=== PATIENT | male | born 1945 | race Caucasian/White ===

== ENCOUNTER 2018-09-13 07:53 | Emergency (ER) | payer MEDICARE, MEDICAID ==
[~2018-09-13] VITALS: Ht 172.7 cm; Wt 108.0 kg
[~2018-09-13 07:53] MED LIST: ACHYD1T PO; ASCO500T20 PO; ATEN1TAB3 PO; ATOR20TA66 PO; ATOR40TA70 PO; CEPH500C PO; CETI10TA17 PO; CIPR500T78 PO; HYDR-3714; HYDR-3730 PO; LORA10TA7 PO; NF-FLON16G NSEACH; NIAC500T6 PO; NITR-65 PO; NITR100C3 PO; OMEP20TA2 PO; PHEN200T27 PO; RANI300T4 PO; RNT150T PO; ROSU20TA14 PO; SULF-222 PO; TERA2CAP13 PO; VENL75CA55 PO; VENL75TA6 PO
--- OUTSIDE RECORDS SUMMARY | 2018-09-13 07:59 | XMS REPORT | Continuity of Care Document ---
Author Author [facility] Organization [facility] Address Unknown Phone Unavailable Care Team Providers Care Concept Artist Name Role Phone SHARON EARL DO PCP Insurance Providers Payer Name Policy Number Subscriber Name Relationship [employer] Gold Choice [id number] Mihir Li 19 Self / Same As Patient Advance Directives Directive Response Recorded Date/Time Advance Directives No 02/27/15 8:15am Health Care Power of Offal Worker No 02/27/15 8:15am Organ Donor Yes 02/27/15 8:15am Resuscitation Status Full Code 02/27/15 8:15am Problems Medical Problems Problem Onset Date Status Urinary tract infection Unknown Active Suprapubic catheter dysfunction Unknown Active Medications Medication Dose Route Sig Days/Qty Instructions Order Date Discontinued Date Status Trimethoprim/Sulfamethoxazole 1 Ea PO DAILY 04/29/13 04/30/13 Discontinued Ranitidine Hcl 300 Mg PO BEDTIME 04/29/13 04/30/13 Discontinued Fluticasone Propionate 2 Puff NSEACH TWICE A DAY PRN PRN NASAL CONGESTION 04/29/13 Active Terazosin Hcl 4 Mg PO BEDTIME 04/29/13 Active Cetirizine HCl (Zyrtec) 10 Mg PO DAILY PRN 04/29/13 04/30/13 Discontinued Atenolol/Chlorthalidone (Tenoretic) 1 Tab PO DAILY 50-25MG TABLET 04/29 Active Omeprazole 20 Mg PO TWICE A DAY 04/29/13 Active Venlafaxine Hcl 75 Mg PO DAILY 04/29/13 04/30/13 Discontinued Venlafaxine Hcl 75 Mg PO DAILY 04/30/13 Active Ranitidine HCl 300 Mg PO BEDTIME 04/30/13 Active Nitrofurantoin Macrocrystals 100 Mg PO TWICE A DAY 30 Qty Clcr <60 mL/ minute: Contraindicated 05/05/13 06/18/13 Discontinued Atorvastatin 20 Mg PO DAILY 12/01/14 Active Acetaminophen/Hydrocodone Bitart 21 Qty 02/27/15 Active Nitrofurantoin Macrocrystals 1 Each PO TWICE A DAY 30 Qty 02/27/15 Active Phenazopyridine HCl 1 Each PO THREE TIMES A DAY PRN BLADDER DISCOMFORT 15 Qty 02/27/15 Active Social History Social History Problem Response Recorded Date/Time Alcohol Use Denies Use 02/27/2015 8:15am Recreational Drug Use No 02/27/2015 8:15am Recent Foreign Travel No 04/30/2013 1:00am Recent Infectious Disease Exposure No 04/30/2013 1:00am Hospitalization with Isolation Denies 02/27/2015 8:15am Smoking Status Never a Smoker 02/27/2015 8:15am Query Response Start Date Stop Date Smoking Status Never a Smoker Hospital Discharge Instructions No hospital discharge instructions. Plan of Care No plan of care. Functional Status No functional status results. Allergies, Adverse Reactions, Alerts Allergen Type Severity Reaction Status Last Updated Penicillins ([id number]) Allergy Unknown Active 05/05/13 Immunizations Name Given Type Date of Pneumonia Vaccine 06/23/12 Historical Date of Influenza Vaccine 07/20/14 Historical Tetanus Booster (TDap) Unknown Historical Vital Signs Acute Vital Signs Vital Response Date/Time Temperature (Fahrenheit) 95.9 degrees F (97.6 - 99.5) Temperature (Calculated Celsius) 35.48308 degrees C (36.4 - 37.5) Temperature Source Temporal Pulse Rate (adult) 102 bpm (60 - 90) Respiratory Rate 20 bpm (12 - 24) O2 Sat by Pulse Oximetry 96 % (88 - 100) Blood Pressure 141/101 mm Hg Pain Pain Intensity 6 Height (Feet) 5 feet Height (Inches) 8 inches Height (Calculated Centimeters) 172.328435 cm Weight (Pounds) 220 pounds Weight (Calculated Kilograms) 99.617563 kilograms Calculated BMI 33.45 Results Laboratory Results Test Name Result Units Flags Reference Collection Date/Time Result Date/ Time Comments Urine Color YELLOW 02/27/2015 8:45am 02/27/2015 9:36am Urine Clarity MUCOUS 02/27/2015 8:45am 02/27/2015 9:36am Urine pH 7 5-9 02/27/2015 8:45am 02/27/2015 9:36am Urine Specific [place] 1.010 * 1.016-1.022 02/27/2015 8:45am 2014 9:36am Urine Protein 3+ * NEGATIVE 02/27/2015 8:45am 02/27/2015 9:36am Urine Glucose (UA) NEGATIVE NEGATIVE 02/27/2015 8:45am 02/27/2015 9: 36am Urine RBC (Auto) 5+ * NEGATIVE 02/27/2015 8:45am 02/27/2015 9:36am Urine Ketones 1+ * NEGATIVE 02/27/2015 8:45am 02/27/2015 9:36am Urine Nitrite POSITIVE * NEGATIVE 02/27/2015 8:45am 02/27/2015 9:36am Urine Bilirubin 2+ * NEGATIVE 02/27/2015 8:45am 02/27/2015 9:36am icto =pos Urine Urobilinogen 4 MG/DL * NORMAL 02/27/2015 8:45am 02/27/2015 9:36am Urine Leukocyte Esterase 3+ * NEGATIVE 02/27/2015 8:45am 02/27/2015 9: 36am Urine RBC 5-10 /HPF * 02/27/2015 8:45am 02/27/2015 9:36am Urine WBC TNTC /HPF * 02/27/2015 8:45am 02/27/2015 9:36am Urine Bacteria TRACE /HPF 02/27/2015 8:45am 02/27/2015 9:36am Urine Squamous Epithelial Cells NONE /HPF 02/27/2015 8:45am 2014 9:36am Urine Crystals NONE /LPF 02/27/2015 8:45am 02/27/2015 9:36am Urine Casts NONE /LPF 02/27/2015 8:45am 02/27/2015 9:36am Urine Mucus NEGATIVE /LPF 02/27/2015 8:45am 02/27/2015 9:36am Urine Culture Indicated YES 02/27/2015 8:45am 02/27/2015 9:36am Procedures No known history of procedures. Encounters Encounter Location Date/Time Departed Emergency Room [facility] 02/27/15 8:11am Registered Clinic [facility] 02/21/15 2:52pm Recent Diagnosis
--- OUTSIDE RECORDS SUMMARY | 2018-09-13 08:00 | XMS REPORT | Continuity of Care Document ---
Author Author [facility] Organization [facility] Address Unknown Phone Unavailable Allergies Active Description Code Type Severity Reaction Onset Reported/Identified Relationship to Patient Clinical Status Yes Penicillins [id number] Drug Allergy Unknown N/A 05/05/2013 Medications There is no data. Problems Date Dx Coded Attending Type Code Diagnosis Diagnosed By 05/05/2013 SHARON EARL DO Ot 041.85 BACTERIAL INFEC DUE TO OTH GRAM-NEG ORGA 05/05/2013 SHARON EARL DO Ot 276.8 HYPOPOTASSEMIA 05/05/2013 SHARON EARL DO Ot 401.9 HYPERTENSION NOS 05/05/2013 SAHRON EARL DO Ot 599.0 URIN TRACT INFECTION NOS 05/05/2013 SHARON EARL DO Ot 600.91 HYPERPLASIA OF PROSTATE, UNSPEC, W URINA 05/05/2013 SHARON EARL DO Ot 780.97 ALTERED MENTAL STATUS 05/05/2013 SHARON EARL DO Ot 788.20 RETENTION OF URINE NOS 05/05/2013 SHARON EARL DO Ot 788.43 NOCTURIA 05/05/2013 SHARON EARL DO Ot 788.62 SLOWING OF URINARY STREAM 05/05/2013 SHARON EARL DO Ot 788.63 URGENCY OF URINATION 06/23/2013 FABIANA CUELLAR MD Ot 596.54 NEUROGENIC BLADDER, NOT OTHERWISE SPECIF 06/23/2013 FABIANA CUELLAR MD Ot 788.20 RETENTION OF URINE NOS 12/01/2014 FABIANA CUELLAR MD Ot 596.54 12/01/2014 FABIANA CUELLAR MD Ot 788.20 12/01/2014 FABIANA CUELLAR MD Ot V72.63 12/01/2014 FABIANA CUELLAR MD Ot V74.8 12/01/2014 CAT MCGOWAN DO Ot 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 12/01/2014 CAT MCGOWAN DO Ot 401.9 HYPERTENSION NOS 12/01/2014 CAT MCGOWAN DO Ot V58.69 OTH MED,LT,CURRENT USE 02/27/2015 NICOLE SCOTT DO Ot 599.0 URIN TRACT INFECTION NOS 02/27/2015 NICOLE SCOTT DO Ot 789.09 ABDOMINAL PAIN, OTHER SPECIFIED SITE 02/27/2015 NICOLE SCOTT DO Ot 996.76 OTH COMP DUE TO GENITOURINARY DEVICE,IMP 02/27/2015 NICOLE SCOTT DO Ot N39.0 URINARY TRACT INFECTION, SITE NOT SPECIF 04/03/2015 TONYALENDER DO, SHARON Whitman Ot 805.2 04/03/2015 GELLENDER DO, SHARON Whitman Ot E000.8 04/03/2015 GELLENDER DO, SHARON Whitman Ot E888.9 07/11/2015 POLO SALAS, FABIANA Whitman Ot 596.54 07/11/2015 POLO SALAS, FABIANA A Ot 788.20 07/11/2015 POLO SALAS, FABIANA A Ot V72.63 07/11/2015 POLO SALAS, FABIANA Whitman Ot V74.8 07/11/2015 GELLENDER DO, SHARON Whitman Ot 805.2 07/11/2015 GELLENDER DO, SHARON Whitman Ot E000.8 07/11/2015 GELLENDER DO, SHARON Whitman Ot E888.9 07/11/2015 GELLENDER DO, SHARON Whitman Ot 805.2 07/11/2015 GELLENDER DO, SHARON Whitman Ot E000.8 07/11/2015 GELLENDER DO, SHARON Whitman Ot E888.9 02/07/2016 CORRINE MOSQUEDA MD, Ot 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 02/07/2016 CORRINE MOSQUEDA MD Ot Z01.810 ENCOUNTER FOR PREPROCEDURAL CARDIOVASCUL 02/07/2016 CORRINE MOSQUEDA MD, Ot Z11.2 ENCOUNTER FOR SCREENING FOR OTHER BACTER 02/08/2016 CORRINE MOSQUEDA MD, Ot 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 02/08/2016 CORRINE MOSQUEDA MD Ot Z01.810 ENCOUNTER FOR PREPROCEDURAL CARDIOVASCUL 02/08/2016 CORRINE MOSQUEDA MD Ot Z11.2 ENCOUNTER FOR SCREENING FOR OTHER BACTER 02/08/2016 CORRINE MOSQUEDA MD Ot 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 AN 02/09/2016 CORRINE MOSQUEDA MD Ot 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 AN 03/27/2016 FABIANA CUELLAR MD Ot 596.54 NEUROGENIC BLADDER, NOT OTHERWISE SPECIF 03/27/2016 FABIANA CUELLAR MD Ot 788.20 RETENTION OF URINE NOS 03/27/2016 FABIANA CUELLAR MD Ot V72.63 PRE-PROCEDURAL LABORATORY EXAMINATION 03/27/2016 FABIANA CUELLAR MD Ot V74.8 SCREEN-BACTERIAL DIS NEC 03/27/2016 SHARON EARL DO Ot 805.2 FX DORSAL VERTEBRA-CLOSE 03/27/2016 SHARON EARL DO Ot E000.8 OTHER EXTERNAL CAUSE STATUS 03/27/2016 SHARON EARL DO Ot E888.9 FALL NOS 03/27/2016 SHARON EARL DO Ot S22.009A UNSP FRACTURE OF UNSP THORACIC VERTEBRA, 03/27/2016 SHARON EARL DO Ot W19.XXXA UNSPECIFIED FALL, INITIAL ENCOUNTER 03/27/2016 SHARON EARL DO Ot Y99.8 OTHER EXTERNAL CAUSE STATUS Procedures There is no data. Results There is no data. Encounters ACCT No. Visit Date/Time Discharge Status Pt. Type Provider Facility Loc./Unit Complaint [id number] 02/08/2016 09:57:00 02/08/2016 18:10:00 DIS Outpatient CORRINE MOSQUEDA MD [facility] [id number] 02/07/2016 09:25:00 02/07/2016 11:03:00 DIS Outpatient CORRINE MOSQUEDA MD [facility] PREOP [id number] 02/27/2015 08:11:00 02/27/2015 09:44:00 DIS Emergency NICOLE SCOTT DO [facility] ER [id number] 02/21/2015 14:52:00 02/21/2015 23:59:59 CLS Outpatient SHARON EARL DO [facility] RAD [id number] 12/01/2014 07:01:00 12/01/2014 12:20:00 DIS Outpatient CAT MCGOWAN DO [facility] [id number] 06/23/2013 06:35:00 06/23/2013 11:40:00 DIS Outpatient FABIANA CUELLAR MD [facility] [id number] 06/18/2013 10:05:00 06/18/2013 23:59:59 CLS Outpatient FABIANA CUELLAR MD [facility] PREOP [id number] 04/29/2013 23:50:00 05/05/2013 18:00:00 DIS Inpatient SHARON EARL DO [facility] [id number] 09/08/2018 13:00:00 09/08/2018 23:59:59 [facility] 02/27/2015 08:13:09 ACT Document Registration
--- NOTE | 2018-09-13 08:17 | ED GU-Male ---
General Chief Complaint: Catheter/Drain/Tube Problems Stated Complaint: CATHETER FELL OUT Nursing Triage Note: pt presents to with complaints of his suprapubic cath coming out around 0300 this am. pt denies any other complaints. pt reports he just needs a new cath placed. Source: patient Exam Limitations: no limitations History of Present Illness Date Seen by Provider: Sep 13, 2018 Time Seen by Provider: 08:02 Initial Comments This 73-year-old gentleman presents to the emergency room with problems maintaining his suprapubic catheter. He has trouble with the bulb rupturing, deflating, or becoming dislodged. This is a recurrent problem. He presents to the ER because it is a weekend and he cannot present to his doctor's office. He has a catheter in a sealed packaging that he would like us to use and replace. He denies any pain or other problems. Allergies and Home Medications Allergies Coded Allergies: Penicillins (Verified Allergy, Unknown, 05/05/13) Reacted as a child per uncoded allergy Home Medications Atorvastatin Calcium 40 Mg Tablet, 20 MG PO HS, (Reported) take 1/2 of 40 mg tab Chlorthalidone/Atenolol 1 Each Tablet, 1 TAB PO DAILY, (Reported) 50-25MG TABLET Fluticasone Propionate 50 Mcg/16 G [place], 2 PUFF NSEACH BID PRN, (Reported) PRN NASAL CONGESTION Hydrocodone/Acetaminophen 1 Each Tablet, 1-2 EACH PO Q6H Prescribed by: CORRINE MOSQUEDA on 02/08/16 1549 Omeprazole 20 Mg Tablet.dr, 20 MG PO DAILY, (Reported) Ranitidine Hcl 150 Mg Tablet, 300 MG PO HS, (Reported) TAKES 2 (150MG) TABLETS AT BEDTIME Venlafaxine Hcl 75 Mg Cap.sr.24h, 75 MG PO DAILY, (Reported) Patient Home Medication List Home Medication List Reviewed: Yes Review of Systems Review of Systems Constitutional: no symptoms reported Gastrointestinal: no symptoms reported Genitourinary: see HPI Skin: no symptoms reported Past Pzqttnz-Bmscrf-Iyvrpq Hx Patient Social History Alcohol Use: Denies Use Recreational Drug Use: No Smoking Status: Never a Smoker Recent Foreign Travel: No Contact w/Someone Who Travel: No Recent Infectious Disease Expo: No Physical Abuse: No Sexual Abuse: No Mistreated: No Fear: No Immunizations Up To Date Tetanus Booster (TDap): Unknown Date of Pneumonia Vaccine: Jun 23, 2012 Date of Influenza Vaccine: Jul 20, 2014 Seasonal Allergies Seasonal Allergies: Yes Past Medical History Surgeries: Yes (lesion from neck, suprapubic cath, foot) Bladder Surgery (suprapubic catheter) Respiratory: No Cardiac: Yes High Cholesterol, Hypertension Neurological: No Reproductive Disorders: No Genitourinary: Yes (suprapubic catheter) Gastrointestinal: No Gastroesophageal Reflux Musculoskeletal: No Endocrine: No Double Vision Hearing Impairment: Bilateral Hearing Aide Cancer: Yes Skin Psychosocial: Yes Anxiety, Depression Integumentary: Yes (skin ca) Blood Disorders: No Adverse Reaction/Blood Tranf: No Family Medical History No Pertinent Family Hx Physical Exam Vital Signs Vital Signs - First Documented 09/13/18 08:10 Temp 99.6 Pulse 92 Resp 18 B/P (MAP) 131/76 (94) Pulse Ox 98 Capillary Refill : Less Than 3 Seconds Height, Weight, BMI Height: 5'8.00" Weight: 238lbs. 4.0oz. 107.646640dd; 34.7 BMI Method:Stated General Appearance: WD/WN, no apparent distress HEENT: normal ENT inspection Cardiovascular: regular rate, rhythm, no murmur Gastrointestinal: non tender, soft Neurologic/Psychiatric: gourmet coffee attendant II-XII nml as tested, alert, normal mood/affect, oriented x 3 Progress/Results/Core Measures Suspected Sepsis Recent Fever Within 48 Hours: No Infection Criteria Present: None New/Unexplained Altered Menta: No Sepsis Screen: No Definite Risk SIRS Temperature:99.6 Pulse: 92 Respiratory Rate: 18 Blood Pressure 131 /76 Mean: 94 Results/Orders Vital Signs/I&O 09/13/18 08:10 Temp 99.6 Pulse 92 Resp 18 B/P (MAP) 131/76 (94) Pulse Ox 98 Capillary Refill : Less Than 3 Seconds Blood Pressure Mean: 94 Progress Note : Progress Note Suprapubic catheter was replaced by nursing staff without any difficulty using patient's own supply of catheter. Departure Impression Primary Impression: Problem with Monk catheter Qualified Codes: T83.9XXA - Unspecified complication of genitourinary prosthetic device, implant and graft, initial encounter Disposition: 01 HOME, SELF-CARE Condition: Improved Departure-Patient Inst. Decision time for Depature: 08:16 Referrals: SHARON EARL DO (PCP/Family) Primary Care Physician Patient Instructions: Monk Catheter, Male Add. Discharge Instructions: Contact your doctor or return to care if you have any further problems or concerns. If you have recurrent problems with this type of catheter, consider changing brands or style catheter. All discharge instructions reviewed with patient and/or family. Voiced understanding. Copy Copies To 1: SHARON EARL JOSHUA T MD Sep 13, 2018 08:17
[2018-09-13 08:30] VITALS: BP 130/87
== END 2018-09-13 08:30 | disposition home or self-care (01) ==
LOC: EDUNIT# 07:53 → ER 07:55
DX: T83.028A Displacement of other urinary catheter, initial encounter (principal); E78.00 Pure hypercholesterolemia, unspecified; I10 Essential (primary) hypertension; K21.9 Gastro-esophageal reflux disease without esophagitis; F41.9 Anxiety disorder, unspecified; F32.9 Major depressive disorder, single episode, unspecified; Z85.828 Personal history of other malignant neoplasm of skin; Z88.0 Allergy status to penicillin; Z79.51 Long term (current) use of inhaled steroids; Z98.890 Other specified postprocedural states
CPT/HCPCS: 51702

== ENCOUNTER 2019-02-19 10:39 | Outpatient (CLI) | payer MEDICARE, MEDICAID ==
[~2019-02-19] VITALS: Ht 172.7 cm; Wt 115.7 kg
[2019-02-19] MEDS ORDERED: ATEN1TAB3 PO (13:47)
[2019-02-19] MEDS ORDERED: VENL75TA2 PO (13:47)
[2019-02-19] MEDS ORDERED: OMEP20TA7 PO (13:47)
[2019-02-19] MEDS ORDERED: POTA-51 PO (13:47)
[2019-02-19] MEDS ORDERED: RANI150T11 PO (13:47)
[2019-02-19] MEDS ORDERED: MAGN420T PO (13:47)
== END 2019-02-19 13:48 | disposition home or self-care (01) ==
LOC: PREOP 10:39
PROVIDERS: ATTEND Surgery
DX: Z01.818 Encounter for other preprocedural examination (principal)

== ENCOUNTER 2019-02-23 11:01 | Day surgery (SDC) | payer MEDICARE, MEDICAID ==
[~2019-02-23] VITALS: Ht 172.7 cm; Wt 115.7 kg
[~2019-02-23 11:01] MED LIST changes: +MAGN420T PO; +OMEP20TA7 PO; +POTA-51 PO; +RANI150T11 PO; +VENL75TA2 PO
--- OUTSIDE RECORDS SUMMARY | 2019-02-23 11:05 | XMS REPORT | Continuity of Care Document ---
Author Organization Unknown Address Unknown Allergies Active Description Code Type Severity Reaction Onset Reported/Identified Relationship to Patient Clinical Status Yes Penicillins [id number] Drug Allergy Unknown N/A 05/05/2013 Medications There is no data. Problems Date Dx Coded Attending Type Code Diagnosis Diagnosed By 05/05/2013 SHARON EARL DO Ot 041.85 BACTERIAL INFEC DUE TO OTH GRAM-NEG ORGA 05/05/2013 SHARON EARL DO Ot 276.8 HYPOPOTASSEMIA 05/05/2013 SHARON EARL DO Ot 401.9 HYPERTENSION NOS 05/05/2013 SHARON EARL DO Ot 599.0 URIN TRACT INFECTION [...] Whitman Ot E888.9 07/11/2015 POLO SALAS, FABIANA J Carlos Ot 596.54 07/11/2015 POLO SALAS, FABIANA A Ot 788.20 07/11/2015 POLO SALAS, FABIANA A Ot V72.63 07/11/2015 POLO SALAS, FABIANA A Ot V74.8 07/11/2015 GELLENDER DO, SHARON Whitman [...] ENCOUNTER FOR PREPROCEDURAL CARDIOVASCUL 02/07/2016 CORRINE MOSQUEDA MD Ot Z11.2 ENCOUNTER FOR SCREENING FOR OTHER BACTER 02/08/2016 CORRINE MOSQUEDA MD, Ot 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 02/08/2016 CORRINE MOSQUEDA MD Ot Z01.810 ENCOUNTER FOR PREPROCEDURAL CARDIOVASCUL 02/08/2016 CORRINE MOSQUEDA MD, Ot Z11.2 ENCOUNTER FOR SCREENING FOR OTHER BACTER 02/08/2016 CORRINE MOSQUEDA MD, Ot 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 AN 02/09/2016 CORRINE MOSQUEDA MD, Ot 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 AN 03/27/2016 FABIANA CUELLAR MD Ot 596.54 NEUROGENIC BLADDER, NOT OTHERWISE SPECIF 03/27/2016 FABIANA CUELLAR MD Ot 788.20 RETENTION OF URINE NOS 03/27/2016 FABIANA CUELLAR MD, Ot V72.63 PRE-PROCEDURAL LABORATORY EXAMINATION 03/27/2016 FABIANA CUELLAR MD, Ot V74.8 SCREEN-BACTERIAL DIS NEC 03/27/2016 MADY SHARON MINA Ot 805.2 FX DORSAL VERTEBRA-CLOSE 03/27/2016 MADY MINASHARON Ot E000.8 OTHER EXTERNAL CAUSE STATUS 03/27/2016 MADY MINASHARON Ot E888.9 FALL NOS 03/27/2016 MADY MINASHARON Ot S22.009A UNSP FRACTURE OF UNSP THORACIC VERTEBRA, 03/27/2016 MADY MINASHARON Ot W19.XXXA UNSPECIFIED FALL, INITIAL ENCOUNTER 03/27/2016 MADY MINASHARON Ot Y99.8 OTHER EXTERNAL CAUSE STATUS 09/13/2018 IVETTE SALAS, ULISES Perales Ot E78.00 PURE HYPERCHOLESTEROLEMIA, UNSPECIFIED 09/13/2018 ULISES STEELE MD Ot F32.9 MAJOR DEPRESSIVE DISORDER, SINGLE EPISOD 09/13/2018 ULISES STEELE MD, Ot F41.9 ANXIETY DISORDER, UNSPECIFIED 09/13/2018 ULISES STEELE MD Ot I10 ESSENTIAL (PRIMARY) HYPERTENSION 09/13/2018 ULISES STEELE MD Ot K21.9 GASTRO-ESOPHAGEAL REFLUX DISEASE WITHOUT 09/13/2018 ULISES STEELE MD Ot T83.028A DISPLACEMENT OF OTHER URINARY CATHETER, 09/13/2018 ULISES STEELE MD, Ot Z79.51 TELEMETRY RN (CURRENT) USE OF INHALED STERO 09/13/2018 ULISES STEELE MD Ot Z85.828 PERSONAL HISTORY OF OTHER MALIGNANT NEOP 09/13/2018 ULISES STEELE MD, Ot Z88.0 ALLERGY STATUS TO PENICILLIN 09/13/2018 ULISES STEELE MD Ot Z98.890 OTHER SPECIFIED POSTPROCEDURAL STATES 09/13/2018 FABIANA CUELLAR MD Ot 596.54 NEUROGENIC BLADDER, NOT OTHERWISE SPECIF 09/13/2018 FABIANA CUELLAR MD Ot 788.20 RETENTION OF URINE NOS 09/13/2018 FABIANA CUELLAR MD Ot V72.63 PRE-PROCEDURAL LABORATORY EXAMINATION 09/13/2018 FABIANA CUELLAR MD Ot V74.8 SCREEN-BACTERIAL DIS NEC 09/13/2018 MADY MINA, SHARON Whitman Ot 805.2 FX DORSAL VERTEBRA-CLOSE 09/13/2018 MADY MINASHARON Ot E000.8 OTHER EXTERNAL CAUSE STATUS 09/13/2018 MADY MINA, SHARON Whitman Ot E888.9 FALL NOS 09/13/2018 SHARON EARL DO Ot S22.009A UNSP FRACTURE OF UNSP THORACIC VERTEBRA, 09/13/2018 MADY MINA SHARON Whitman Ot W19.XXXA UNSPECIFIED FALL, INITIAL ENCOUNTER 09/13/2018 MADY MINA SHARON Whitman Ot Y99.8 OTHER EXTERNAL CAUSE STATUS 09/15/2018 ULISES STEELE MD Ot E78.00 PURE HYPERCHOLESTEROLEMIA, UNSPECIFIED 09/15/2018 ULISES STEELE MD Ot F32.9 MAJOR DEPRESSIVE DISORDER, SINGLE EPISOD 09/15/2018 ULISES STEELE MD, Ot F41.9 ANXIETY DISORDER, UNSPECIFIED 09/15/2018 ULISES STEELE MD Ot I10 ESSENTIAL (PRIMARY) HYPERTENSION 09/15/2018 ULISES STEELE MD, Ot K21.9 GASTRO-ESOPHAGEAL REFLUX DISEASE WITHOUT 09/15/2018 ULISES STEELE MD Ot T83.028A DISPLACEMENT OF OTHER URINARY CATHETER, 09/15/2018 ULISES STEELE MD Ot Z79.51 NURSING HOME (CURRENT) USE OF INHALED STERO 09/15/2018 ULISES STEELE MD Ot Z85.828 PERSONAL HISTORY OF OTHER MALIGNANT NEOP 09/15/2018 ULISES STEELE MD, Ot Z88.0 ALLERGY STATUS TO PENICILLIN 09/15/2018 ULISES STEELE MD Ot Z98.890 OTHER SPECIFIED POSTPROCEDURAL STATES Procedures There is no data. Results There is no data. Encounters ACCT No. Visit Date/Time Discharge Status Pt. Type Provider Facility Loc./Unit Complaint [id number] 09/13/2018 07:55:00 09/13/2018 08:30:00 DIS Emergency ULISES STEELE MD [facility] ER CATHETER FELL OUT [id number] 02/08/2016 09:57:00 02/08/2016 18:10:00 DIS Outpatient CORRINE MOSQUEDA MD [facility] SQUAMOUS CELL CANCER [id number] 02/07/2016 09:25:00 02/07/2016 11:03:00 DIS Outpatient CORRINE MOSQUEDA MD [facility] PREOP SQUAMOUS CELL CANCER [id number] 02/27/2015 08:11:00 02/27/2015 09:44:00 DIS Emergency NICOLE SCOTT DO [facility] ER LOWER GROIN PAIN/UTI SYMPTOMS [id number] 02/21/2015 14:52:00 02/21/2015 23:59:59 CLS Outpatient SHARON EARL DO [facility] RAD FELL HURT LOWER BACK, NOT GETTING BETTER [id number] 12/01/2014 07:01:00 12/01/2014 12:20:00 DIS Outpatient CAT MCGOWAN DO [facility] SDC LESION ON RIGHT SIDE OF NECK [id number] 06/23/2013 06:35:00 06/23/2013 11:40:00 DIS Outpatient FABIANA CUELLAR MD [facility] SDC NEUROGENIC BLADDER [id number] 06/18/2013 10:05:00 06/18/2013 23:59:59 CLS Outpatient FABIANA CUELLAR MD [facility] PREOP NEUROGENIC BLADDER [id number] 04/29/2013 23:50:00 05/05/2013 18:00:00 DIS Inpatient SHARON EARL DO [facility] 4TH URINARY TRACT INFECTION,MENTAL STATUS CHANGE [id number] 09/08/2018 13:00:00 09/08/2018 23:59:59 CLS Outpatient PAGE TIRADO [id number] 02/27/2015 08:13:09 ACT Document Registration
--- OUTSIDE RECORDS SUMMARY | 2019-02-23 11:05 | XMS REPORT ---
Author Author MICHELE DEL ROSARIO Organization [facility] Address [address] [place] [address] Care Team Providers Care Trim Carpenter Name Role Phone MICHELE DEL ROSARIO Unavailable PROBLEMS Unknown Problems ALLERGIES Substance Reaction Event Type Date Status Penicillin V Potassium Unknown Drug Allergy Aug, Active ENCOUNTERS Encounter Location Date Diagnosis [facility] [address] [facility] [id number] [id number] Aug, Dental examination Z01.20 ; Oral health maintenance status requiring routine preventive dental care K08.9 and Caries K02.9 IMMUNIZATIONS No Known Immunizations SOCIAL HISTORY Never Assessed REASON FOR VISIT EST CARE PLAN OF CARE Activity Details Follow Up First Available Reason:Restorative VITAL SIGNS Blood pressure systolic 130 mmHg 2018-09-08 Blood pressure diastolic 95 mmHg 2018-09-08 MEDICATIONS Unknown Medications RESULTS No Results PROCEDURES Procedure Date Ordered Result Body Site COMP ORAL EVALUATION - NEW/EST PT Sep 08, 2018 INTRAORL-PERIAPICAL 1 FILM 79370 Sep 08, 2018 PROPHYLAXIS - ADULT Sep 08, 2018 PANORAMIC FILM SEE ALSO CODE 02390 Sep 08, 2018 TOPICAL FLUORIDE VARNISH Sep 08, 2018 INTRAORL-PERIAPICAL EA ADD FILM Sep 08, 2018 INTRAORL-PERIAPICAL EA ADD FILM Sep 08, 2018 BITEWINGS - FOUR FILMS Sep 08, 2018 INTRAORL-PERIAPICAL EA ADD FILM Sep 08, 2018 INSTRUCTIONS MEDICATIONS ADMINISTERED No Known Medications MEDICAL (GENERAL) HISTORY Type Description Date Medical History High Blood Pressure Medical History Pt reports he takes several medications but does not know the names for them, pt states he Dr[facility] Surgical History Skin Cancer removed 2013 Surgical History Pubic port placed for bladder issues 2013
[2019-02-23] MEDS ORDERED: LACTATED RINGERS 1,000 ML IV STA (11:16)
[2019-02-23] MEDS ORDERED: HURRICAINE EXT TUBE (BENZOCAINE) XX PRN (11:30)
[2019-02-23] MEDS ORDERED: LACTATED RINGERS 1,000 ML IV ONE ×2 (11:32→15:06)
[2019-02-23 11:58] VITALS: BP 139/75
[2019-02-23] MEDS ORDERED: PROPOFOL INJECTION 50 ML IV ONE (13:36)
[2019-02-23] MEDS ORDERED: MIDAZOLAM 2 MG/2 ML (VERSED) VIAL ONE (13:36)
--- NOTE | 2019-02-23 13:46 | Progress Note-Pre Operative ---
Pre-Operative Progress Note H&P Reviewed The H&P was reviewed, patient examined and no changes noted. Date Seen by Provider: February 23, 2019 Time Seen by Provider: 13:46 Date H&P Reviewed: February 23, 2019 Time H&P Reviewed: 13:46 Pre-Operative Diagnosis: gerd, hx polyps CAT MCGOWAN DO February 23, 2019 13:46
[2019-02-23] MEDS ORDERED: proPOfol 200 MG/20 ML (DIPRIVAN) VIAL IV ONE ×2 (14:39→14:57)
[2019-02-23 15:45] VITALS: BP 127/70
--- NOTE | 2019-02-23 15:56 | Discharge Inst-Simple/Standard ---
Discharge Inst-Standard Patient Instructions/Follow Up Plan of Care/Instructions/FU: 2 weeks Cash Activity as Tolerated: Yes Discharge Diet: Regular Diet CAT MCGOWAN DO February 23, 2019 15:56
[2019-02-23 16:05] VITALS: BP 135/75
--- NOTE | 2019-02-23 16:05 | Progress Note-Post Operative ---
Post-Operative Progess Note Surgeon (s)/Fisher Eel Spear (s) Surgeon CAT MCGOWAN DO Fisher Eel Spear: na Pre-Operative Diagnosis gerd, hx polyps Post-Operative Diagnosis diverticulsosis and colon polyps hiatal hernia Procedure & Operative Findings Date of Procedure 02/23/19 Procedure Performed/Findings egd c biopsies, colonoscopy with snare polypectomy x 1 adn hot bx polypectomy x 6 Anesthesia Type per move coordinator Estimated Blood Loss Estimated blood loss (mL): none Specimens/Packing Specimens Removed colon polyps, antrum ge junction. CAT MCGOWAN DO February 23, 2019 16:05
--- NOTE | 2019-02-23 16:12 | Anesthesia-General Post-Op ---
MAC Patient Condition Mental Status/LOC: Same as Preop Cardiovascular: Satisfactory Nausea/Vomiting: Absent Respiratory: Satisfactory Pain: Controlled Complications: Absent Post Op Complications Complications None Follow Up Care/Instructions Patient Instructions None needed. Anesthesiology Discharge Order Discharge Order Patient is doing well, no complaints, stable vital signs, no apparent adverse anesthesia problems. No complications reported per nursing. RANDALL OVALLE CRNA February 23, 2019 16:12
--- NOTE | 2019-02-23 22:52 | OPERATIVE REPORT ---
DATE OF SERVICE: 02/23/2019 PREOPERATIVE DIAGNOSES: Gastroesophageal reflux disease and history of polyps. POSTOPERATIVE DIAGNOSES: Diverticulosis, colon polyps, hiatal hernia. PROCEDURE: EGD with biopsies, colonoscopy with snare polypectomy x1 and hot biopsy polypectomy x6. SURGEON: Cat Castrejon DO ANESTHESIA: Per SUPERVISOR CIGAR MAKING HAND. ESTIMATED BLOOD LOSS: None. SPECIMENS: Colon polyps, antrum and GE junction. INDICATIONS: The patient is a 73-year-old male with history of colon polyps and GERD. He understands risks and benefits of procedures wishes to proceed with procedure. Consent was signed on the chart. DESCRIPTION OF PROCEDURE: The patient was taken to the endoscopy suite, placed in left lateral recumbent position. Timeout was performed. Scope was inserted into the mouth, down the esophagus, stomach and into the duodenum without difficulty. There were no polyps, masses or ulcerations in the duodenum. Scope was then slowly retracted back into the stomach where it was further insufflated. No polyps, masses or ulcerations. Biopsy of the antrum was obtained. Scope was retroflexed noting a hiatal hernia. No other pathology noted. Scope was returned to its normal position, slowly withdrawn to the distal esophagus. Some slight erythematous changes present. Biopsy of the GE junction was obtained. Scope was then slowly retracted back to completely remove, noting no other pathology. Digital rectal exam was performed. There were no palpable polyps, masses or ulcerations. The scope was inserted into the rectum and advanced all the way to the cecum with minimal difficulty. Prep was adequate with irrigation and suction. Scope was then slowly retracted back. There were no polyps, masses or ulcerations in the cecum. One small polyp in the ascending colon, which hot biopsy polypectomy was performed. Scope was then continuously retracted back. At the hepatic flexure, there were 2 colon polyps in the transverse colon, which hot biopsy polypectomies were performed. Scope was continuously retracted back at the splenic flexure, a larger polyp was present, which snare polypectomy was performed. Scope was continued to be slowly retracted back. Still in the transverse colon, another small polyp was present, which hot biopsy polypectomy was performed. Scope was continuously retracted back into the descending colon, which hot biopsy polypectomy was performed. Another descending colon polyp was present, which hot biopsy polypectomy was performed. Scope was then continued to be slowly retracted back through the sigmoid colon noting diverticulosis. Scope was then continued to be slowly retracted back to the rectum, where it was also retroflexed noting no other pathology. Scope was returned to its normal position and slowly withdrawn until completely removed. A total of 6 colon polyps, which hot biopsy polypectomy was performed and one snare polypectomy was performed. RECOMMENDATIONS: The patient to continue on current medications. The patient will need repeat colonoscopy in one year for reevaluation. Job ID: [id number] DocumentID: [id number] Dictated Date: 02/23/2019 16:03:56 Geography Teacher Date: 02/23/2019 22:52:29 Dictated By: CAT CASTREJON DO
== END 2019-02-23 16:20 | disposition home or self-care (01) ==
LOC: ENDO 11:01
PROVIDERS: ATTEND Surgery
DX: Z12.11 Encounter for screening for malignant neoplasm of colon (principal); D12.2 Benign neoplasm of ascending colon; D12.3 Benign neoplasm of transverse colon; D12.4 Benign neoplasm of descending colon; K63.5 Polyp of colon; K57.30 Diverticulosis of large intestine without perforation or abscess without bleeding; K21.9 Gastro-esophageal reflux disease without esophagitis; K44.9 Diaphragmatic hernia without obstruction or gangrene; I10 Essential (primary) hypertension; E78.5 Hyperlipidemia, unspecified; E66.9 Obesity, unspecified; Z68.38 Body mass index [BMI] 38.0-38.9, adult; Z93.50 Unspecified cystostomy status; Z79.899 Other long term (current) drug therapy; Z87.19 Personal history of other diseases of the digestive system
CPT/HCPCS: 88305

== ENCOUNTER 2019-03-14 15:38 | Emergency (ER) | payer MEDICARE, OTHER, MEDICAID | END 2019-03-14 16:18 | disposition home or self-care (01) | LOC: ER 15:38 ==

== ENCOUNTER 2019-05-16 07:45 | Emergency (ER) | payer MEDICARE, MEDICAID ==
[~2019-05-16] VITALS: Ht 172.7 cm; Wt 70.3 kg
--- OUTSIDE RECORDS SUMMARY | 2019-05-16 07:51 | XMS REPORT | Continuity of Care Document ---
Author Organization Unknown Address Unknown Phone Unavailable Allergies Active Description Code Type Severity Reaction Onset Reported/Identified Relationship to Patient Clinical Status Yes Penicillins [id number] Drug Allergy Unknown N/A 05/05/2013 Medications There [...] CARCINOMA OF SCALP AND SKIN O 12/01/2014 MCGOWAN DO, CAT D Ot 401.9 HYPERTENSION NOS 12/01/2014 MCGOWANCAT ZAPATA DO D Ot V58.69 OTH MED,LT,CURRENT USE 02/27/2015 NICOLE SCOTT DO Ot 599.0 URIN TRACT INFECTION NOS 02/27/2015 NICOLE SCOTT DO Ot 789.09 ABDOMINAL PAIN, OTHER SPECIFIED SITE 02/27/2015 NICOLE SCOTT DO Ot 996.76 OTH COMP DUE TO GENITOURINARY DEVICE,IMP 02/27/2015 NICOLE SCOTT DO Ot N39.0 URINARY TRACT INFECTION, SITE NOT SPECIF 04/03/2015 GELLENDER DO, SHARON Whitman Ot 805.2 04/03/2015 GELLENDER DO, SHARON Whitman Ot E000.8 04/03/2015 GELLENDER DO, SHARON Whitman Ot E888.9 07/11/2015 POLO SALAS, FABIANA A Ot 596.54 07/11/2015 POLO SALAS, FABIANA A Ot 788.20 07/11/2015 POLO SALAS, FABIANA A Ot V72.63 07/11/2015 POLO SALAS, FABIANA A Ot V74.8 07/11/2015 GELLENDER DO, SHARON A Ot 805.2 07/11/2015 GELLENDER DO, SHARON A Ot E000.8 07/11/2015 GELLENDER DO, SHARON A Ot E888.9 07/11/2015 GELLENDER DO, SHARON A Ot 805.2 07/11/2015 GELLENDER DO, SHARON A Ot E000.8 07/11/2015 GELLENDER DO, SHARON A Ot E888.9 02/07/2016 CORRINE MOSQUEDA MD Ot 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 [...] MD Ot V72.63 PRE-PROCEDURAL LABORATORY EXAMINATION 03/27/2016 AFBIANA CUELLAR MD, Ot V74.8 SCREEN-BACTERIAL DIS NEC 03/27/2016 ZANDRASHARON LARA DO Ot 805.2 FX DORSAL VERTEBRA-CLOSE 03/27/2016 MADY SHARON MINA Ot E000.8 OTHER EXTERNAL CAUSE STATUS 03/27/2016 MADY MNIASHARON Ot E888.9 FALL NOS 03/27/2016 MADY SHARON MINA Ot S22.009A UNSP FRACTURE OF UNSP THORACIC VERTEBRA, 03/27/2016 MADY SHARON MINA Ot W19.XXXA UNSPECIFIED FALL, INITIAL ENCOUNTER 03/27/2016 MADY MINA SHARON Whitman Ot Y99.8 OTHER EXTERNAL CAUSE STATUS 09/13/2018 IVETTE SALAS, ULISES Perales Ot E78.00 PURE HYPERCHOLESTEROLEMIA, UNSPECIFIED 09/13/2018 ULISES STEELE MD, Ot F32.9 MAJOR DEPRESSIVE DISORDER, SINGLE EPISOD 09/13/2018 ULISES STEELE MD, Ot F41.9 ANXIETY DISORDER, UNSPECIFIED 09/13/2018 ULISES STEELE MD Ot I10 ESSENTIAL (PRIMARY) HYPERTENSION 09/13/2018 ULISES STEELE MD Ot K21.9 GASTRO-ESOPHAGEAL REFLUX DISEASE WITHOUT 09/13/2018 ULISES STEELE MD Ot T83.028A DISPLACEMENT OF OTHER URINARY CATHETER, 09/13/2018 ULISES STEELE MD, Ot Z79.51 PRISON (CURRENT) USE OF INHALED STERO 09/13/2018 ULISES STEELE MD Ot Z85.828 PERSONAL HISTORY OF OTHER MALIGNANT NEOP 09/13/2018 ULISES STEELE MD, Ot Z88.0 ALLERGY STATUS TO PENICILLIN 09/13/2018 ULISES STEELE MD Ot Z98.890 OTHER SPECIFIED POSTPROCEDURAL STATES 09/13/2018 FABIANA CUELLAR MD Ot 596.54 NEUROGENIC BLADDER, NOT OTHERWISE SPECIF 09/13/2018 FABIANA CUELLAR MD Ot 788.20 RETENTION OF URINE NOS 09/13/2018 POLO SALAS, FABIANA Whitman Ot V72.63 PRE-PROCEDURAL LABORATORY EXAMINATION 09/13/2018 FABIANA CUELLAR MD Ot V74.8 SCREEN-BACTERIAL DIS NEC 09/13/2018 MADY MINA, SHARON Whitman Ot 805.2 FX DORSAL VERTEBRA-CLOSE 09/13/2018 MADY MINA, SHARON Whitman Ot E000.8 OTHER EXTERNAL CAUSE STATUS 09/13/2018 MADY MINA, SHARON Whitman Ot E888.9 FALL NOS 09/13/2018 SHARON EARL DO Ot S22.009A UNSP FRACTURE OF UNSP THORACIC VERTEBRA, 09/13/2018 MADY MINA SHARON Whitman Ot W19.XXXA UNSPECIFIED FALL, INITIAL ENCOUNTER 09/13/2018 MADY MINA, SHARON Whitman Ot Y99.8 OTHER EXTERNAL CAUSE STATUS 09/15/2018 ULISES STEELE MD Ot E78.00 PURE HYPERCHOLESTEROLEMIA, UNSPECIFIED 09/15/2018 ULISES STEELE MD Ot F32.9 MAJOR DEPRESSIVE DISORDER, SINGLE EPISOD 09/15/2018 ULISES STEELE MD Ot F41.9 ANXIETY DISORDER, UNSPECIFIED 09/15/2018 ULISES STEELE MD Ot I10 ESSENTIAL (PRIMARY) HYPERTENSION 09/15/2018 ULISES STEELE MD Ot K21.9 GASTRO-ESOPHAGEAL REFLUX DISEASE WITHOUT 09/15/2018 ULISES STEELE MD Ot T83.028A DISPLACEMENT OF OTHER URINARY CATHETER, 09/15/2018 ULISES STEELE MD Ot Z79.51 PRISON (CURRENT) USE OF INHALED STERO 09/15/2018 ULISES STEELE MD Ot Z85.828 PERSONAL HISTORY OF OTHER MALIGNANT NEOP 09/15/2018 ULISES STEELE MD Ot Z88.0 ALLERGY STATUS TO PENICILLIN 09/15/2018 IVETTE SALAS, ULISES Perales Ot Z98.890 OTHER SPECIFIED POSTPROCEDURAL STATES 02/19/2019 CAT MCGOWAN DO Ot Z01.818 ENCOUNTER FOR OTHER PREPROCEDURAL EXAMIN 02/23/2019 CAT MCGOWAN DO Ot D12.2 BENIGN NEOPLASM OF ASCENDING COLON 02/23/2019 CAT MCGOWAN DO Ot D12.3 BENIGN NEOPLASM OF TRANSVERSE COLON 02/23/2019 CAT MCGOWAN DO Ot D12.4 BENIGN NEOPLASM OF DESCENDING COLON 02/23/2019 CAT MCGOWAN DO Ot E66.9 OBESITY, UNSPECIFIED 02/23/2019 CAT MCGOWAN DO Ot E78.5 HYPERLIPIDEMIA, UNSPECIFIED 02/23/2019 CAT MCGOWAN DO Ot I10 ESSENTIAL (PRIMARY) HYPERTENSION 02/23/2019 CAT MCGOWAN DO Ot K21.9 GASTRO-ESOPHAGEAL REFLUX DISEASE WITHOUT 02/23/2019 CAT MCGOWAN DO Ot K44.9 DIAPHRAGMATIC HERNIA WITHOUT OBSTRUCTION 02/23/2019 CTA MCGOWAN DO Ot K57.30 DVRTCLOS OF LG INT W/O PERFORATION OR AB 02/23/2019 CAT MCGOWAN DO Ot K63.5 POLYP OF COLON 02/23/2019 CAT MCGOWAN DO Ot Z12.11 ENCOUNTER FOR SCREENING FOR MALIGNANT NE 02/23/2019 CAT MCGOWAN DO Ot Z68.38 BODY MASS INDEX (BMI) 38.0-38.9, ADULT 02/23/2019 CAT MCOGWAN DO Ot Z79.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 02/23/2019 CAT MCGOWAN DO Ot Z87.19 PERSONAL HISTORY OF OTHER DISEASES OF TH 02/23/2019 CAT MCGOWAN DO Ot Z93.50 UNSPECIFIED CYSTOSTOMY STATUS 03/04/2019 CAT MCGOWAN DO Ot D12.2 BENIGN NEOPLASM OF ASCENDING COLON 03/04/2019 CAT MCGOWAN DO Ot D12.3 BENIGN NEOPLASM OF TRANSVERSE COLON 03/04/2019 CAT MCGOWAN DO Ot D12.4 BENIGN NEOPLASM OF DESCENDING COLON 03/04/2019 CAT MCGOWAN DO Ot E66.9 OBESITY, UNSPECIFIED 03/04/2019 CAT MCGOWAN DO Ot E78.5 HYPERLIPIDEMIA, UNSPECIFIED 03/04/2019 CAT MCGOWAN DO Ot I10 ESSENTIAL (PRIMARY) HYPERTENSION 03/04/2019 CAT MCGOWAN DO Ot K21.9 GASTRO-ESOPHAGEAL REFLUX DISEASE WITHOUT 03/04/2019 CAT MCGOWAN DO Ot K44.9 DIAPHRAGMATIC HERNIA WITHOUT OBSTRUCTION 03/04/2019 CAT MCGOWAN DO Ot K57.30 DVRTCLOS OF LG INT W/O PERFORATION OR AB 03/04/2019 CAT MCGOWAN DO Ot K63.5 POLYP OF COLON 03/04/2019 CAT MCGOWAN DO Ot Z12.11 ENCOUNTER FOR SCREENING FOR MALIGNANT NE 03/04/2019 CAT MCGOWAN DO Ot Z68.38 BODY MASS INDEX (BMI) 38.0-38.9, ADULT 03/04/2019 CAT MCGOWAN DO Ot Z79.899 OTHER PRISON (CURRENT) DRUG THERAPY 03/04/2019 CAT MCGOWAN DO Ot Z87.19 PERSONAL HISTORY OF OTHER DISEASES OF TH 03/04/2019 CAT MCGOWAN DO Ot Z93.50 UNSPECIFIED CYSTOSTOMY STATUS 03/04/2019 CAT MCGOWAN DO Ot D12.2 BENIGN NEOPLASM OF ASCENDING COLON 03/04/2019 CAT MCGOWAN DO Ot D12.3 BENIGN NEOPLASM OF TRANSVERSE COLON 03/04/2019 CAT MCGOWAN DO Ot D12.4 BENIGN NEOPLASM OF DESCENDING COLON 03/04/2019 CAT MCGOWAN DO Ot E66.9 OBESITY, UNSPECIFIED 03/04/2019 CAT MCGOWAN DO Ot E78.5 HYPERLIPIDEMIA, UNSPECIFIED 03/04/2019 CAT MCGOWAN DO Ot I10 ESSENTIAL (PRIMARY) HYPERTENSION 03/04/2019 CAT MCGOWAN DO Ot K21.9 GASTRO-ESOPHAGEAL REFLUX DISEASE WITHOUT 03/04/2019 CAT MCGOWAN DO Ot K44.9 DIAPHRAGMATIC HERNIA WITHOUT OBSTRUCTION 03/04/2019 CAT MCGOWAN DO Ot K57.30 DVRTCLOS OF LG INT W/O PERFORATION OR AB 03/04/2019 CAT MCGOWAN DO Ot K63.5 POLYP OF COLON 03/04/2019 CAT MCGOWAN DO Ot Z12.11 ENCOUNTER FOR SCREENING FOR MALIGNANT NE 03/04/2019 CAT MCGOWAN DO Mounika Ot Z68.38 BODY MASS INDEX (BMI) 38.0-38.9, ADULT 03/04/2019 CAT MCGOWAN DO Mounika Ot Z79.899 OTHER PRISON (CURRENT) DRUG THERAPY 03/04/2019 CAT MCGOWAN DO Mounika Ot Z87.19 PERSONAL HISTORY OF OTHER DISEASES OF 03/04/2019 CAT MCGOWAN DO Ot Z93.50 UNSPECIFIED CYSTOSTOMY STATUS 03/08/2019 MADY MINA SHARON J Carlos Ot 805.2 FX DORSAL VERTEBRA-CLOSE 03/08/2019 MADY MINASHARON Ot E000.8 OTHER EXTERNAL CAUSE STATUS 03/08/2019 SHARON EARL DO J Carlos Ot E888.9 FALL NOS 03/08/2019 SHARON EARL DO J Carlos Ot S22.009A UNSP FRACTURE OF UNSP THORACIC VERTEBRA, 03/08/2019 SHARON EARL DO J Carlos Ot W19.XXXA UNSPECIFIED FALL, INITIAL ENCOUNTER 03/08/2019 MADY MINA SHARON J Carlos Ot Y99.8 OTHER EXTERNAL CAUSE STATUS 03/14/2019 JOSE MENDEZ Ot E78.00 PURE HYPERCHOLESTEROLEMIA, UNSPECIFIED 03/14/2019 JOSE MENDEZ Ot F32.9 MAJOR DEPRESSIVE DISORDER, SINGLE EPISOD 03/14/2019 JOSE MENDEZ Ot F41.9 ANXIETY DISORDER, UNSPECIFIED 03/14/2019 JOSE MENDEZ Ot I10 ESSENTIAL (PRIMARY) HYPERTENSION 03/14/2019 JOSE MENDEZ Ot K21.9 GASTRO- ESOPHAGEAL REFLUX DISEASE WITHOUT 03/14/2019 JOSE MENDEZ Ot T83.038A LEAKAGE OF OTHER URINARY CATHETER, INITI 03/14/2019 JOSE MENDEZ Ot Z85.828 PERSONAL HISTORY OF OTHER MALIGNANT NEOP 03/14/2019 JOSE MENDEZ Ot Z86.010 PERSONAL HISTORY OF COLONIC POLYPS 03/14/2019 JOSE MENDEZ Ot Z87.19 PERSONAL HISTORY OF OTHER DISEASES OF 03/14/2019 JOSE MENDEZ Ot Z88.0 ALLERGY STATUS TO PENICILLIN 03/14/2019 JOSE MENDEZ Ot Z98.890 OTHER SPECIFIED POSTPROCEDURAL STATES 03/18/2019 JOSE MENDEZ Ot E78.00 PURE HYPERCHOLESTEROLEMIA, UNSPECIFIED 03/18/2019 BERNOT, JOSE Ot F32.9 MAJOR DEPRESSIVE DISORDER, SINGLE EPISOD 03/18/2019 EYADOTONIEL, JOSE Ot F41.9 ANXIETY DISORDER, UNSPECIFIED 03/18/2019 EYADOT, JOSE Ot I10 ESSENTIAL (PRIMARY) HYPERTENSION 03/18/2019 ANDREA JOSE Ot K21.9 GASTRO- ESOPHAGEAL REFLUX DISEASE WITHOUT 03/18/2019 ANDREA JOSE Ot T83.038A LEAKAGE OF OTHER URINARY CATHETER, INITI 03/18/2019 JERRY MENDEZIS Ot Z85.828 PERSONAL HISTORY OF OTHER MALIGNANT NEOP 03/18/2019 JERRY MENDEZIS Ot Z86.010 PERSONAL HISTORY OF COLONIC POLYPS 03/18/2019 JERRY MENDEZIS Ot Z87.19 PERSONAL HISTORY OF OTHER DISEASES OF TH 03/18/2019 JERRY MENDEZIS Ot Z88.0 ALLERGY STATUS TO PENICILLIN 03/18/2019 JERRY MENDEZIS Ot Z98.890 OTHER SPECIFIED POSTPROCEDURAL STATES 03/18/2019 JOSE MENDEZ Ot E78.00 PURE HYPERCHOLESTEROLEMIA, UNSPECIFIED 03/18/2019 JERRY MENDEZIS Ot F32.9 MAJOR DEPRESSIVE DISORDER, SINGLE EPISOD 03/18/2019 ANDREA JOSE Ot F41.9 ANXIETY DISORDER, UNSPECIFIED 03/18/2019 EYADOT JOSE Ot I10 ESSENTIAL (PRIMARY) HYPERTENSION 03/18/2019 JERRY MENDEZIS Ot K21.9 GASTRO- ESOPHAGEAL REFLUX DISEASE WITHOUT 03/18/2019 JERRY MENDEZIS Ot T83.038A LEAKAGE OF OTHER URINARY CATHETER, INITI 03/18/2019 JERRY MENDEZIS Ot Z85.828 PERSONAL HISTORY OF OTHER MALIGNANT NEOP 03/18/2019 JERRY MENDEZIS Ot Z86.010 PERSONAL HISTORY OF COLONIC POLYPS 03/18/2019 JERRY MENDEZIS Ot Z87.19 PERSONAL HISTORY OF OTHER DISEASES OF 03/18/2019 JERRY MENDEZIS Ot Z88.0 ALLERGY STATUS TO PENICILLIN 03/18/2019 ANDREA, JOSE Ot Z98.890 OTHER SPECIFIED POSTPROCEDURAL STATES Procedures There is no data. Results There is no data. Encounters ACCT No. Visit Date/Time Discharge Status Pt. Type Provider Facility Loc./Unit Complaint [id number] 03/14/2019 15:38:00 03/14/2019 16:18:00 DIS Emergency JOSE MENDEZ [facility] ER NEEDS CATHETER PLACED [id number] 02/23/2019 11:01:00 02/23/2019 16:20:00 DIS Outpatient CAT MCGOWAN DO [facility] ENDO HX POLYPS/GERD [id number] 02/19/2019 10:39:00 02/19/2019 13:48:00 DIS Outpatient CAT MCGOWAN DO [facility] PREOP COLONOSCOPY/EGD [id number] 09/13/2018 07:55:00 09/13/2018 08:30:00 DIS Emergency ULISES STEELE MD [facility] ER CATHETER FELL OUT [id number] 02/08/2016 09:57:00 02/08/2016 18:10:00 DIS Outpatient [facility] CE[facility] [id number] 02/07/2016 09:25:00 02/07/2016 11:03:00 DIS Outpatient CORRINE MOSQUEDA MD [facility] PREOP SQUAMOUS CELL CANCER [id number] 02/27/2015 08:11:00 02/27/2015 09:44:00 DIS Emergency NICOLE SCOTT DO [facility] ER LOWER GROIN PAIN/UTI SYMPTOMS [id number] 02/21/2015 14:52:00 02/21/2015 23:59:59 CLS Outpatient SHARON EARL DO [facility] RAD FELL HURT LOWER BACK, NOT GETTING BETTER [id number] 12/01/2014 07:01:00 12/01/2014 12:20:00 DIS Outpatient CAT MCGOWAN DO [facility] SDC LESION ON RIGHT SIDE OF NECK [id number] 06/23/2013 06:35:00 06/23/2013 11:40:00 DIS Outpatient FABIANA CUELLAR MD [facility] SDC NEUROGENIC BLADDER [id number] 06/18/2013 10:05:00 06/18/2013 23:59:59 CLS Outpatient FABIANA CUELLAR MD [facility] PREOP NEUROGENIC BLADDER [id number] 04/29/2013 23:50:00 05/05/2013 18:00:00 DIS Inpatient SHARON EARL DO [facility] 4TH URINARY TRACT INFECTION,MENTAL STATUS CHANGE
--- NOTE | 2019-05-16 09:18 | ED GU-Male ---
General Chief Complaint: Catheter/Drain/Tube Problems Stated Complaint: CATH REPLACEMENT Source: patient Exam Limitations: no limitations History of Present Illness Date Seen by Provider: May 16, 2019 Time Seen by Provider: 08:15 Initial Comments This 73-year-old gentleman presents to the emergency room with a suprapubic catheter malfunction. The bulb on his Monk ruptured. The catheter came out in the night. He is having no pain or bleeding. He just needs the catheter replaced. Allergies and Home Medications Allergies Coded Allergies: Penicillins (Verified Allergy, Unknown, 05/05/13) Reacted as a child per uncoded allergy Home Medications Atenolol/Chlorthalidone 1 Each Tablet, 1 EACH PO DAILY, (Reported) Atorvastatin Calcium 40 Mg Tablet, 20 MG PO HS, (Reported) take 1/2 of 40 mg tab Magnesium Oxide 420 Mg Tablet, 420 MG PO BID, (Reported) Omeprazole 20 Mg Tablet.dr, 20 MG PO DAILY, (Reported) Potassium Chloride 20 Meq Tablet.er, 20 MEQ PO BID, (Reported) Ranitidine HCl 150 Mg Tablet, 300 MG PO HS, (Reported) take 2 (150mg) tabs Venlafaxine HCl 75 Mg Tab.er.24, 75 MG PO DAILY, (Reported) Patient Home Medication List Home Medication List Reviewed: Yes Review of Systems Review of Systems Constitutional: no symptoms reported Gastrointestinal: no symptoms reported Genitourinary: see HPI Skin: no symptoms reported Past Vgtyphe-Xnuodw-Bpsnhu Hx Patient Social History 2nd Hand Smoke Exposure: No Recent Foreign Travel: No Contact w/Someone Who Travel: No Recent Hopitalizations: No Immunizations Up To Date Tetanus Booster (TDap): Unknown Date of Pneumonia Vaccine: Jun 23, 2012 Date of Influenza Vaccine: Jul 20, 2014 Seasonal Allergies Seasonal Allergies: Yes Past Medical History Surgeries: Yes (lesion from neck, suprapubic cath, foot) Bladder Surgery Respiratory: No Cardiac: Yes High Cholesterol, Hypertension Neurological: No Reproductive Disorders: No Genitourinary: Yes (suprapubic catheter) Gastrointestinal: Yes Gastroesophageal Reflux, Hemorrhoids, Polyps Musculoskeletal: No Endocrine: No HEENT: Yes Double Vision Hearing Impairment: Bilateral Hearing Aide Cancer: Yes Skin Psychosocial: Yes Anxiety, Depression Integumentary: Yes (skin ca) Blood Disorders: No Adverse Reaction/Blood Tranf: No Family Medical History No Pertinent Family Hx Physical Exam Vital Signs Vital Signs - First Documented 05/16/19 08:10 Temp 98.0 Pulse 89 Resp 19 B/P (MAP) 140/70 (93) Pulse Ox 98 O2 Delivery Room Air Capillary Refill : Height, Weight, BMI Height: 5'9.50" Weight: 255lbs. 0.0oz. 115.858478tw; 38.8 BMI Method:Stated General Appearance: WD/WN, no apparent distress Cardiovascular: regular rate, rhythm, no edema, no murmur Respiratory: lungs clear, normal breath sounds, no respiratory distress Gastrointestinal: non tender, soft Neurologic/Psychiatric: alert, normal mood/affect, oriented x 3 Skin: normal color, warm/dry Progress/Results/Core Measures Suspected Sepsis SIRS Temperature: Pulse: Respiratory Rate: Blood Pressure / Mean: Results/Orders My Orders Orders - ULISES STEELE MD Catheter(Urinary) Care .0300, 1500 (05/16/19 08:19) Vital Signs/I&O 05/16/19 05/16/19 08:10 09:21 Temp 98.0 98.0 Pulse 89 89 Resp 19 19 B/P (MAP) 140/70 (93) 140/70 (93) Pulse Ox 98 98 O2 Delivery Room Air Capillary Refill : Progress Note : Progress Note Catheter was replaced with a 20 K[place] Monk catheter by nursing staff. Departure Impression Primary Impression: Monk catheter problem Qualified Codes: T83.9XXA - Unspecified complication of genitourinary prosthetic device, implant and graft, initial encounter Disposition: 01 HOME, SELF-CARE Condition: Improved Departure-Patient Inst. Decision time for Depature: 09:17 Referrals: SHARON EARL DO (PCP/Family) Primary Care Physician Patient Instructions: How to Care for Your Suprapubic Urinary Catheter Add. Discharge Instructions: Return to care if you have any further problems with your catheter. All discharge instructions reviewed with patient and/or family. Voiced understanding. ULISES STEELE MD May 16, 2019 09:18
[2019-05-16 09:21] VITALS: BP 140/70
== END 2019-05-16 09:21 | disposition home or self-care (01) ==
LOC: EDUNIT# 07:45 → ER 07:46
DX: T83.098A Other mechanical complication of other urinary catheter, initial encounter (principal); I10 Essential (primary) hypertension; E78.00 Pure hypercholesterolemia, unspecified; K21.9 Gastro-esophageal reflux disease without esophagitis; F41.9 Anxiety disorder, unspecified; F32.9 Major depressive disorder, single episode, unspecified; Z85.828 Personal history of other malignant neoplasm of skin; Z88.0 Allergy status to penicillin; Z86.010 Personal history of colon polyps
CPT/HCPCS: 51702

== ENCOUNTER 2020-04-30 08:08 | Emergency (ER) | payer MEDICARE, MEDICAID ==
[~2020-04-30] VITALS: Ht 175.3 cm; Wt 111.1 kg
--- OUTSIDE RECORDS SUMMARY | 2020-04-30 08:13 | XMS REPORT ---
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[employer] [facility] [employer] Address [address] [place] [address] Care Team Providers Care Bacon De Rinder Name Role Phone SHARON EARL Unavailable MICHELE DEL ROSARIO Unavailable SHARON EARL Unavailable SHARON EARL PCP IVETTE SALAS, ULISES Perales Unavailable Unavailable CAT MCGOWAN DO Unavailable Unavailable CORRINE MOSQUEDA MD Unavailable Unavailable NICOLE SCOTT DO Unavailable Unavailable SHARON EARL DO Unavailable Unavailable BERNOT, JOSE Unavailable Unavailable GINNY CORTÉS MD Unavailable Unavailable BERNOT BUTADIENE CONVERTER HELPER, JOSE Unavailable Unavailable Unavailable Unavailable Allergies Allergy Reported Allergen(s) Allergy Type Date of Reaction(s) Care Facility Classificati Onset Provider on Penicillin V Penicillin V ; Drug Allergy 09-08-2018 Unknown JUNITO DEL ROSARIO [facility] (1 source) Translations: [Penicillin Other Phone: H ealth V Potassium] [phone] ([id number]) Encounters Encounter Date Encounter Type Encounter Diagnosis Care Provider Facility Start: Emergency department ULISES SALAS [address] 05-16-2019 patient visit [facility] ([id number]) End: 05-16-2019 Start: Patient encounter ULISES STEELE MD [facility] [address] 05-16-2019 procedure [facility] ([id number]) Start: Emergency department ULISES STEELE VC [address] 05-16-2019 patient visit [facility] End: 05-16-2019 Start: Emergency department JOSE Richter n [address] 03-14-2019 patient visit Hospital ([id number]) End: 03-14-2019 Start: Emergency department JOSE DIAMONDP [facility] [address] 03-14-2019 patient visit [facility] End: 03-14-2019 Start: Patient encounter JOSE MENDEZ [facility] is 03-14-2019 procedure [facility] ([id number]) Start: Admission to same day CAT [address] [facility] [address] [facility] 02-23-2019 surgery center Work Phone: [facility] ([phone]) End: 02-23-2019 Start: Patient encounter CAT MCGOWAN DO [facility] [address] 02-23-2019 procedure [facility] ([id number]) End: 02-23-2019 Start: Patient encounter CAT Mounika MCGOWAN DO [facility] 02-23-2019 procedure [facility] End: 02-23-2019 Start: Patient encounter CAT NÚÑEZBAR [facility] is 02-19-2019 procedure Work Phone: [facility] ([id number]) End: 02-19-2019 Start: Patient encounter CAT MCGOWAN DO [facility] 02-19-2019 procedure [facility] End: 02-19-2019 Start: Emergency department ULISES Conley t Available ([id number]) 09-13-2018 patient visit End: 09-13-2018 Start: Patient encounter ULISES STEELE MD Not Available ([id number]) 09-13-2018 procedure Start: Emergency department ULISES STEELE [facility] [place] [facility] 09-13-2018 patient visit [facility] End: 09-13-2018 Start: Patient encounter OUTSIDE Critical access hospital 09-08-2018 procedure [facility] ([id number]) Start: [facility] Encounter for dental MICHELE CARIN [facility] 09-08-2018 DENTAL examination and DENTAL cleaning without abnormal findings Start: Comprehensve oral MICHELE CARIN [facility] 09-08-2018 evaluation Other Phone: [facility] ([id number]) Start: Patient encounter CORRINE MOSQUEDA MD [facility] [address] 02-08-2016 procedure [facility] ([id number]) End: 02-08-2016 Start: Patient encounter CAT MCGOWAN DO Not Availa ble ([id number]) 12-01-2014 procedure End: 12-01-2014 Start: Patient encounter FABIANA CUELLAR MD Not Availab le ([id number]) 06-23-2013 procedure End: 06-23-2013 Start: Patient encounter FABIANA CUELLAR MD Not Availab le ([id number]) 06-18-2013 procedure Encounter for dental MICHELE [facility] examination and Other Phone: [facility] [place] ([id number]) abnormal findings ENCOUNTER FOR Encounter for CORRINE MOSQUEDA MD [facility] cardiovascular ([id number]) examination Pre-procedural FABIANA CUELLAR MD Not Available ([phone]) laboratory examination Encounter for other CAT MCGOWAN DO [facility] examination ([id number]) Medical Equipment No Information Goals No Information Immunizations Immunizatio Immunization Notes Care Provider Facility n Date Vaccination ; SHARON EARL [facility] Translations: Work Phone: [place] ([id number]) [vaccine] Interventions No Information Medications Medication Drug Dates Sig Sig (Original) Class(es) (Normalized) Atenolol/Chlorthalidone take 1 tablet Atenolol/Chl orthalidone (Atenolol-Chlorthal by mouth once (Atenolol-Chlort oscar 50-25 Tb) 1 Each 50-25 Tb) 1 Each Tablet daily Tablet 1 Tab ORAL Daily 50-25MG TABLET (1 source) Atenolol/Chlorthalidone End: Atenolol/Chlo rthalidone (Atenolol-Chlorthal 02-19-2019 (Atenolol-Chlorth al 50-25 Tb) 1 Each 50-25 Tb) 1 Each Tablet, Tablet, 1 Tab Oral Daily Discontinued 1 Tab Oral (3 sources) Fluticasone Propionate End: Fluticasone Pr opionate (Flonase [place] (Flonase [place] 02-19-2019 (Non-Formulary)) 50 Mcg/16 G [place], 2 (Non-Formulary)) 50 Puff Nasal Twice A Day as n eeded Mcg/16 G [place], 2 Puff Discontinued Nasal (3 sources) magnesium oxide 420 mg take 1 tablet Magnesium Oxi de 420 Mg Tablet 420 Mg oral tablet by mouth twice ORAL Twice A Day (3 sources) daily Omeprazole 20 Mg take 1 tablet Omeprazole 20 Mg Ta blet.dr 20 Mg ORAL Tablet.dr by mouth once Daily (1 source) daily Omeprazole 20 Mg End: Omeprazole 20 Mg Ta blet.dr, 20 Mg Oral Tablet.dr, 20 Mg Oral 02-19-2019 Daily Discontin ued (3 sources) Phenazopyridine Hcl Start: Phenazopyridine H cl (Pyridium) 200 Mg (Pyridium) 200 Mg 02-27-2015 Tablet, 1 Each Oral Three Times A Day as Tablet, 1 Each Oral needed for Bladder Discomfort 02/27/15 (4 sources) End: Discontinued 02-07-2016 potassium chloride 20 take 1 tablet Potassium Chlo ride 20 Meq Tablet.er 20 meq extended release by mouth twice Meq ORAL Twice A Day oral tablet daily (3 sources) Trimethoprim/Sulfamethox End: Trimethoprim /Sulfamethoxazole (Bactrim azole (Bactrim Ds) 1 Ea 04-30-2013 Ds) 1 Ea Tabl et, 1 Ea Oral Daily Tablet, 1 Ea Oral Discontinued (4 sources) Payers Date Payer Normalized Payer [id number] Plan of Treatment Date Care Activity Detail Author Start: Administration of anesthesia Anesthesia for 30 [address] [place] [facility] 02-23-2019 Hospital ([id number]) Problems Active Problems Problem Problem Date Last Documented Episodic/Chr Provider Classificati Recorded Date onic on Abdominal Diaphragmatic hernia without 04-26-2020 Episodic CAT MCGOWAN hernia obstruction or gangrene DO (6 sources) Abdominal Abdominal pain, other specified Episodic NICOLE SONIA DO pain site (2 sources) Allergic Allergy status to penicillin 04-26-2020 Episodic ULISES reactions IVETTE (14 sources) Anxiety Anxiety disorder, unspecified 04-26-2020 Chronic ULISES disorders IVETTE (14 sources) Disorders of Pure hypercholesterolemia, 04-26-2020 Chronic ULISES lipid unspecified ; Translations: DARIEN GILMAN metabolism [Hyperlipidemia, unspecified] (20 sources) Diverticulos Diverticulosis of large intestine 04-26-2020 Respiratory Therapy Aide xavier CAT MCGOWAN is and without perforation or abscess DO diverticulit without bleeding is (6 sources) E Codes: Unspecified fall, initial encounter Episodic SHARON Fall ; Translations: [UNSPECIFIED FALL, GELLENDER DO (3 sources) INITIAL ENCOUNTER] E Codes: Other external cause status ; Episodic SHARON Unspecified Translations: [OTHER EXTERNAL CAUSE GELLENDER DO (3 sources) STATUS] Esophageal Gastro-esophageal reflux disease 04-26-2020 Chroni c ULISES disorders without esophagitis ; Translations: IVETTE (22 sources) [Gastroesophageal reflux disease] M D Essential Essential (primary) hypertension ; 04-26-2020 Respiratory Therapy Aide xavier SHARON hypertension Translations: [Unspecified GELLENDE R DO (23 sources) essential hypertension] Genitourinar Unspecified cystostomy status 04-26-2020 Chronic CAT MCGOWAN y symptoms DO and ill-defined conditions (6 sources) Genitourinar Retention of urine, unspecified ; Episodic SHARON y symptoms Translations: [Slowing of urinary G ELLENDER DO and stream] ill-defined conditions (6 sources) Hyperplasia Hyperplasia of prostate, Chronic ELVIS HARD of prostate unspecified, with urinary GELLENDER DO (1 source) obstruction and other lower urinary symptoms (LUTS) Immunization Encounter for screening for other Episodic FABIANA POLO s and bacterial diseases ; Translations: screening [Screening examination for other for specified bacterial and spi rochetal infectious diseases] disease (3 sources) Mood Major depressive disorder, single 04-26-2020 Chron ic ULISES disorders episode, unspecified IVETTE (14 sources) Other ferry terminal agent (current) use of inhaled 04-26-2020 Epis odic ULISES aftercare steroids IVETTE (6 sources) Other Long-term (current) use of other Episodic CAT MCGOWAN aftercare medications DO (2 sources) Other Other correction (current) drug 04-26-2020 Episodic CAT MCGOWAN aftercare therapy DO (6 sources) Other and Benign neoplasm of ascending colon 04-26-2020 Epis odic CAT MCGOWAN unspecified DO benign neoplasm (5 sources) Other and Benign neoplasm of descending colon 04-26-2020 Epi sodic CAT MCGOWAN unspecified DO benign neoplasm (5 sources) Other and Benign neoplasm of transverse colon 04-26-2020 Epi sodic CAT MCGOWAN unspecified DO benign neoplasm (5 sources) Other and Polyp of colon 04-26-2020 Episodic CAT DUNBA R unspecified DO benign neoplasm (6 sources) Other and Personal history of colonic polyps 04-26-2020 Epis odic JOSE unspecified BERNOT benign neoplasm (8 sources) Other Neurogenic bladder NOS Chronic FABIANA POLO diseases of MD bladder and urethra (2 sources) Other Closed fracture of dorsal Episodic RI CHARD fractures [thoracic] vertebra without mention GELLENDER DO (2 sources) of spinal cord injury Other Unspecified fracture of unspecified Episodic SHARON fractures thoracic vertebra, initial GELLENDE R DO (2 sources) encounter for closed fractu re Other Personal history of other diseases 04-26-2020 Epis odic CAT MCGOWAN gastrointest of the digestive system DO inal disorders (10 sources) Other Personal history of other malignant 04-26-2020 Epi sodic CAT MCGOWAN non-epitheli neoplasm of skin ; Translations: DO al cancer of [Basal cell carcinoma of sk in of skin scalp and neck] (20 sources) Other Body mass index (BMI) 38.0-38.9, 04-26-2020 Chroni c CAT MCGOWAN nutritional; adult DO endocrine; and metabolic disorders (6 sources) Other Obesity, unspecified 04-26-2020 Chronic CAT MCGOWAN nutritional; DO endocrine; and metabolic disorders (6 sources) Other Encounter for screening for 04-26-2020 Episodic CAT MCGOWAN screening malignant neoplasm of colon DO for suspected conditions (not mental disorders or infectious disease) (6 sources) Residual Other specified postprocedural 04-26-2020 Episodic ULISES codes; states IVETTE unclassified (10 sources) Unclassified SHARON (11 sources) GELLENDER Work Phone: Past or Other Problems Problem Problem Date Last Documented Episodic/Chr Provider Classificati Recorded Date onic on Bacterial Other specified bacterial Episodic RI CHARD infection; infections in conditions classified GELLENDER DO unspecified elsewhere and of unspecifie d site, site other gram-negative organis ms (1 source) Disorders of Disorder of teeth and supporting Episodic MICHELE CARIN teeth and structures, unspecified ; Other Evgeny ne: jaw Translations: [Dental caries, [phone] (2 sources) unspecified] 8 Fluid and Hypopotassemia Episodic SHARON electrolyte GELLENDER DO disorders (1 source) Residual Altered mental status Episodic CRISSY D codes; GELLENDER DO unclassified (1 source) Procedures Date Procedure Procedure Detail Performing Cl inician Start: Colonoscopy CAT D [place] 02-23-2019 Start: Colsc flx CTA D [place] 02-23-2019 w/removal lesion Work Phone: by hot bx forceps Start: Colsc flx w/rmvl CAT D [place] 02-23-2019 of tumor polyp Work Phone: lesion snare tq Start: Egd transoral CAT D [place] 02-23-2019 biopsy Work Phone: single/multiple Start: Esophagogastroduod CAT D [place] 02-23-2019 enoscopy Work Phone: Start: Bitewings four MICHELE CARIN 09-08-2018 images Other Phone: Start: Dental prophylaxis MICHELE CARIN 09-08-2018 adult Other Phone: Start: Intraoral MICHELE CARIN 09-08-2018 periapical ea add Other Phone: Start: Intraoral MICHELE CARIN 09-08-2018 periapical first Other Phone: Start: Panoramic image MICHELE CARIN 09-08-2018 Other Start: Topical fluoride MICHELE CARIN 09-08-2018 varnish Other Phone: Results The data below is from unstructured sourcesNo known relevant diagnostic tests, laboratory data and/or discharge summary. No Results No ResultsNo relevant diagnostic test, laboratory data and/or discharge summary information available.No relevant diagnostic test, laboratory data and/or discharge summary information available.No relevant diagnostic test, laboratory data and/or discharge summary information available.No relevant diagnostic test, laboratory data and/or discharge summary information available.No relevant diagnostic test, laboratory data and/or discharge summary information available.No relevant diagnostic test, laboratory data and/or discharge summary information available.No relevant diagnostic test, laboratory data and/or discharge summary information available.No relevant diagnostic test, laboratory data and/or discharge summary information available. Social History The data below is from unstructured sources History Response Recorde d Date/Time Hx Family Cancer N 04/30 1:00am Hx Family Cardiac Disorders N 04/30/13 1:00am History Response Recorde d Date/Time Alcohol Use Denies Use 0 04/30/13 1:00am Recreational Drug Use N 04/30/13 1:00am Recent Foreign Travel N 04/30/13 1:00am Recent Infectious Disease Exposure N 04/30/13 1:00am Vital Signs The data below is from unstructured sources Vital Response Date/Time Pulse Rate (adult) 73 bpm (60 - 90) 02/07/2016 9:28am O2 Sat by Pulse Oximetry 99 % (88 - 100) 02/07/2016 9:28am Blood Pressure 116/67 mm Hg 02/07/2016 9:28am Height (Feet) 5 feet 9:42am Height (Inches) 8.00 inches 02/07/2016 9:42am Height (Calculated Centimeters) 172. 122395 cm 02/07/2016 9:42am Weight (Pounds) 228 pounds 02/07/2016 9:42am Weight (Ounces) 4.0 oz 0 02/07/2016 9:42am Weight (Calculated Grams) 088131.459 gm 02/07/2016 9:42am Weight (Calculated Kilograms) 103.53 2459 kilograms 02/07/2016 9:42am Calculated BMI 34.7 01/19 9:42am Vital Response Date/Time Temperature (Fahrenheit) 98.0 degree s F (97.6 - 99.5) 02/08/2016 6:10pm Temperature (Calculated Celsius) 36. 48405 degrees C (36.4 - 37.5) 02/08/2016 6:05pm Temperature Source Temporal 02/08/2016 6:10pm Pulse Rate (adult) 71 bpm (60 - 90) 02/08/2016 6:10pm Respiratory Rate 18 bpm (12 - 24) 02/08/2016 6:10pm O2 Sat by Pulse Oximetry 95 % (88 - 100) 02/08/2016 6:10pm Blood Pressure 115/63 mm Hg 02/08/2016 6:10pm Pain Pain Intensity 2 2015 6:05pm Height (Feet) 5 feet 9:42am Height (Inches) 8.00 inches 02/07/2016 9:42am Height (Calculated Centimeters) 172. 354088 cm 02/07/2016 9:42am Weight (Pounds) 228 pounds 02/07/2016 9:42am Weight (Ounces) 4.0 oz 0 02/07/2016 9:42am Weight (Calculated Grams) 945963.459 gm 02/07/2016 9:42am Weight (Calculated Kilograms) 103.53 2459 kilograms 02/07/2016 9:42am Calculated BMI 34.7 01/19 9:42am Vital Response Date/Time Temperature (Fahrenheit) 95.9 degree s F (97.6 - 99.5) Temperature (Calculated Celsius) 35. 53213 degrees C (36.4 - 37.5) Temperature Source Temporal Pulse Rate (adult) 102 bpm (60 - 90) Respiratory Rate 20 bpm (12 - 24) O2 Sat by Pulse Oximetry 96 % (88 - 100) Blood Pressure 141/101 mm Hg Pain Pain Intensity 6 Height (Feet) 5 feet Height (Inches) 8 inches Height (Calculated Centimeters) 172. 592092 cm Weight (Pounds) 220 pounds Weight (Calculated Kilograms) 99.790 322 kilograms Calculated BMI 33.45 Vital Response Date/Time Temperature (Fahrenheit) 98.3 degree s F (97.6 - 99.5) Temperature (Calculated Celsius) 36. 91582 degrees C (36.4 - 37.5) Temperature Source Temporal Pulse Rate (adult) 80 bpm (60 - 90) Respiratory Rate 16 bpm (12 - 24) O2 Sat by Pulse Oximetry 98 % (88 - 100) Blood Pressure 131/62 mm Hg Pain Pain Intensity 0 Height (Feet) 5 feet Height (Inches) 10.00 inches Height (Calculated Centimeters) 177. 193054 cm Weight (Pounds) 250 pounds Weight (Calculated Grams) 288306.094 gm Weight (Calculated Kilograms) 113.39 8094 kilograms Height 5 ft 10 in Weight 250 lb Body Mass Index 35.9 kg/m^2 Blood pressure systolic 130 mmHg 2018-09-08 Blood pressure diastolic 95 mmHg 2018-09-08 Vital Response Date/Time Temperature (Fahrenheit) 98.3 degree s F (97.6 - 99.5) 09/13/2018 8:30am Temperature (Calculated Celsius) 36. 50217 degrees C (36.4 - 37.5) 09/13/2018 8:30am Temperature Source Temporal 09/13/2018 8:30am Pulse Rate (adult) 87 bpm (60 - 90) 09/13/2018 8:30am Respiratory Rate 20 bpm (12 - 24) 09/13/2018 8:30am O2 Sat by Pulse Oximetry 99 % (88 - 100) 09/13/2018 8:30am Blood Pressure 130/87 mm Hg 09/13/2018 8:30am Blood Pressure Mean 101 mm Hg (65 - 110) 09/13/2018 8:30am Pain Numeric Pain Scale 0-No Pain 09/13/2018 8:30am Height (Feet) 5 feet 8:10am Height (Inches) 8.00 inches 09/13/2018 8:10am Height (Calculated Centimeters) 172. 595500 cm 09/13/2018 8:10am Height Method Stated 8:10am Weight (Pounds) 238 pounds 09/13/2018 8:10am Weight (Calculated Grams) 703806.99 gm 09/13/2018 8:10am Weight (Calculated Kilograms) 107.95 4985 kilograms 09/13/2018 8:10am Weight Method Stated 8:10am Capillary Refill Capillary Refill Less Than 3 Seconds 09/13/2018 8:10am Height 5 ft 8 in 018 8:10am Weight 238 lb 09/13/2018 8:10am Body Mass Index 36.2 kg/m^2 09/13/2018 8:10am Vital Response Date/Time Height (Feet) 5 feet 12/2018 1:12pm Height (Inches) 8.00 inches 02/19/2019 1:12pm Height (Calculated Centimeters) 172. 288817 cm 02/19/2019 1:12pm Weight (Pounds) 255 pounds 02/19/2019 1:12pm Weight (Ounces) 0.0 oz 0 02/19/2019 1:12pm Weight (Calculated Grams) 279923.06 gm 02/19/2019 1:12pm Weight (Calculated Kilograms) 115.66 6055 kilograms 02/19/2019 1:12pm Calculated BMI 38.8 12/2018 1:12pm Vital Response Date/Time Temperature (Fahrenheit) 97.0 degree s F (97.6 - 99.5) 02/23/2019 4:05pm Temperature (Calculated Celsius) 36. 24842 degrees C (36.4 - 37.5) 02/23/2019 4:05pm Temperature Source Tympanic 02/23/2019 4:05pm Pulse Rate (adult) 76 bpm (60 - 90) 02/23/2019 4:05pm Respiratory Rate 18 bpm (12 - 24) 02/23/2019 4:05pm O2 Sat by Pulse Oximetry 97 % (88 - 100) 02/23/2019 4:05pm Blood Pressure 135/75 mm Hg 02/23/2019 4:05pm Blood Pressure Mean 89 mm Hg (65 - 110) 02/23/2019 3:40pm Pain Numeric Pain Scale 0-No Pain 02/23/2019 11:58am Pain Intensity 0 2018 4:05pm Height (Feet) 5 feet 04/2019 11:33am Height (Inches) 8.00 inches 02/23/2019 11:33am Height (Calculated Centimeters) 172. 770606 cm 02/23/2019 11:33am Weight (Pounds) 255 pounds 02/23/2019 11:33am Weight (Ounces) 0.0 oz 0 02/23/2019 11:33am Weight (Calculated Grams) 462817.06 gm 02/23/2019 11:33am Weight (Calculated Kilograms) 115.66 6055 kilograms 02/23/2019 11:33am Calculated BMI 38.8 0 04/2019 11:33am Weight Measurement Method Standing Scale 02/23/2019 11:33am Vital Response Date/Time Temperature (Fahrenheit) 99.4 degree s F (97.6 - 99.5) 03/14/2019 4:16pm Temperature (Calculated Celsius) 37. 74626 degrees C (36.4 - 37.5) 03/14/2019 4:16pm Temperature Source Tympanic 03/14/2019 4:16pm Pulse Rate (adult) 81 bpm (60 - 90) 03/14/2019 4:16pm Respiratory Rate 14 bpm (12 - 24) 03/14/2019 4:16pm O2 Sat by Pulse Oximetry 93 % (88 - 100) 03/14/2019 4:16pm Blood Pressure 127/63 mm Hg 03/14/2019 4:16pm Blood Pressure Mean 84 mm Hg (65 - 110) 03/14/2019 4:16pm Pain Numeric Pain Scale 0-No Pain 03/14/2019 4:16pm Pain Intensity 0 2018 4:05pm Height (Feet) 5 feet 3:55pm Height (Inches) 9.50 inches 03/14/2019 3:55pm Height (Calculated Centimeters) 176. 699601 cm 03/14/2019 3:55pm Height Method Stated 3:55pm Weight (Pounds) 255 pounds 03/14/2019 3:55pm Weight (Ounces) 0.0 oz 0 02/23/2019 11:33am Weight (Calculated Grams) 392022.06 gm 03/14/2019 3:55pm Weight (Calculated Kilograms) 115.66 6055 kilograms 03/14/2019 3:55pm Calculated BMI 38.8 04/2019 11:33am Weight Method Stated 3:55pm Weight Measurement Method Standing Scale 02/23/2019 11:33am Capillary Refill Capillary Refill Less Than 3 Seconds 03/14/2019 3:55pm Vital Response Date/Time Temperature (Fahrenheit) 99.4 degree s F (97.6 - 99.5) 03/14/2019 4:16pm Temperature (Calculated Celsius) 37. 99777 degrees C (36.4 - 37.5) 03/14/2019 4:16pm Temperature Source Tympanic 03/14/2019 4:16pm Pulse Rate (adult) 81 bpm (60 - 90) 03/14/2019 4:16pm Respiratory Rate 14 bpm (12 - 24) 03/14/2019 4:16pm O2 Sat by Pulse Oximetry 93 % (88 - 100) 03/14/2019 4:16pm Blood Pressure 127/63 mm Hg 03/14/2019 4:16pm Blood Pressure Mean 84 mm Hg (65 - 110) 03/14/2019 4:16pm Pain Numeric Pain Scale 0-No Pain 03/14/2019 4:16pm Pain Intensity 0 2018 4:05pm Height (Feet) 5 feet 3:55pm Height (Inches) 9.50 inches 03/14/2019 3:55pm Height (Calculated Centimeters) 176. 828482 cm 03/14/2019 3:55pm Height Method Stated 3:55pm Weight (Pounds) 255 pounds 03/14/2019 3:55pm Weight (Ounces) 0.0 oz 0 02/23/2019 11:33am Weight (Calculated Grams) 021977.06 gm 03/14/2019 3:55pm Weight (Calculated Kilograms) 115.66 6055 kilograms 03/14/2019 3:55pm Calculated BMI 38.8 04/2019 11:33am Weight Method Stated 3:55pm Weight Measurement Method Standing Scale 02/23/2019 11:33am Capillary Refill Capillary Refill Less Than 3 Seconds 03/14/2019 3:55pm Functional Status The data below is from unstructured sourcesNo functional status results.No functional status results.No functional status results.No functional status results.No functional status results.No functional status results.No functional status results.No functional status information avai lable.No functional status information available.No functional status informatio n available.No functional status information available.No functional status info rmation available.No functional status information available.No functional statu s information available.No functional status information available. Mental Status No Information History general Narrative - Reported Note Date & Note Facility Type History general Narrative - Reported Type Medical High Blood Pressure History Medical Pt reports he takes several medications but does not know the History names for them, pt states h e 's with [facility] Surgical Skin Cancer removed 2013 History Surgical Pubic port placed for bladder issues 2 014 History [facility] ([id number]) Advance Directives Directive Response Recor ded Date/Time Advance Directives No 9:28am Health Care Power of Bran Mixer No 02/07/16 9:28am Organ Donor Yes 02/07/16 9:28am Resuscitation Status Full Code 02/07/16 9:28am Directive Response Recor ded Date/Time Advance Directives No 9:28am Health Care Power of Bran Mixer No 02/07/16 9:28am Organ Donor Yes 02/07/16 9:28am Directive Response Recor ded Date/Time Advance Directives No 8:15am Health Care Power of Bran Mixer No 02/27/15 8:15am Organ Donor Yes 02/27/15 8:15am Resuscitation Status Full Code 02/27/15 8:15am Directive Response Recor ded Date Advance Directives N 01/30 8:25am Health Care Power of Bran Mixer N 06/23/13 8:25am Organ Donor Y 06/23/13 8 :25am Directive Response Recor ded Date Advance Directives N 10/01 1:00am Health Care Power of Bran Mixer N 04/30/13 1:00am Organ Donor Y 04/30/13 1 :00am Directive Response Recor ded Date/Time Advance Directives No 8:03am Health Care Power of Bran Mixer No 12/01/14 8:03am Organ Donor Yes 12/01/14 8:03am Resuscitation Status Full Code 12/01/14 8:03am Directive Response Recor ded Date/Time Advance Directives No 8:10am Health Care Power of Bran Mixer No 09/13/18 8:10am Organ Donor Yes 09/13/18 8:10am Resuscitation Status Full Code 09/13/18 8:10am Directive Response Recor ded Date/Time Advance Directives No 1:12pm Health Care Power of Bran Mixer No 02/19/19 1:12pm Organ Donor Yes 02/19/19 1:12pm Resuscitation Status Full Code 02/19/19 1:12pm Directive Response Recor ded Date/Time Advance Directives No 11:58am Health Care Power of Bran Mixer No 02/23/19 11:58am Organ Donor Yes 02/23/19 11:58am Resuscitation Status Full Code 02/23/19 11:58am Directive Response Recor ded Date/Time Advance Directives No 3:55pm Health Care Power of Bran Mixer No 03/14/19 3:55pm Organ Donor Yes 03/14/19 3:55pm Resuscitation Status Full Code 03/14/19 3:55pm Discharge Instructions No hospital discharge instructions. Patient Instructions Physician Instructions New, Converted, or Re-Newed RX: RX on Chart Follow Up Appt 10 days Activity as tolerated No driving for 24 hours No driving while on pain medications Incentive Spirometry use every 2 hours while awake Regular Diet Symptoms to Report: Fever over 101 degree F, Nausea/Vomiting Infection Signs and Symptoms to report: Increased redness, Foul odor of wound, Increased drainage Bathing instructions: May shower Operative Area Clean/Dry; Keep incision clean/dry If any problems/questions: Contact your physician or go to Emergency Room No hospital discharge instructions.No hospital discharge instructions.No hospital discharge instruction information available.No hospital discharge instruction information available.No hospital discharge instruction information available.No hospital discharge instruction information available. Chief Complaint and Reason for Visit Chief Complaint Catheter/Drain/Tube Problems Reason for Visit Problem with Monk catheter Chief Complaint Catheter/Drain/Tube Problems Reason for Visit [id number] Additional Source Comments This clinical document has been generated using [employer] software that has been certified by the Office of the National Coordinator for Health Information Technology (ONC 15.99.04.3023.Diam.[id number]) and the National Committee for Promotional Representative (NCQA, as an eMeasure certified technology). FOR RECORDS PERTAINING TO PATIENTS WHO ARE OR HAVE BEEN ENROLLED IN A CHEMICAL D EPENDENCY/SUBSTANCE ABUSE PROGRAM, SOME INFORMATION MAY BE OMITTED. This clinica l summary was aggregated from multiple sources. Caution should be exercised in using it in the provision of clinical care. This summary normalizes information from multiple sources, and as a consequence, information in this document may ma terially change the coding, format and clinical context of patient data. In saira tion, data may be omitted in some cases. CLINICAL DECISIONS SHOULD BE BASED ON T HE PRIMARY CLINICAL RECORDS. [employer] provides no warranty or guara ntee of the accuracy or completeness of information in this document.The followi ng information is based on time limited clinical information UNRECOGNIZED CONTENT PROVIDED BELOW FOR UNRECOGNIZED SECTION REASON FOR VISIT EST CARE
--- OUTSIDE RECORDS SUMMARY | 2020-04-30 08:14 | XMS REPORT | Encounter Summary ---
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 not have any cold or flu-like symptoms. The patient reports they do not have any new onset of diarrhea. Result: Screen is negative. Healthy Living Discussion: Healthy Living Discussion: Nine Healthy Living Messages: The impact of healthy living behaviors on overall physical and mental well-being discussed with Victor. Be Involved Eat Wisely Be Tobacco Free Manage Stress Be Physically Active Get Screenings and Tests Be Safe Limit Alcohol Strive for Healthy Weight No, Victor is not interested in any topic at this time. Importance of healthy living for better health, especially being physically active and eating wisely, was communicated to the . informed that these topics can be discussed at any time. Patient level of understanding: Good Alcohol Use Screen (AUDIT-C): Alcohol Screen: SCREEN FOR ALCOHOL (AUDIT-C) An alcohol screening test (AUDIT-C) was negative (score=0). 1. How often did you have a drink containing alcohol in the past year? Never 2. How many drinks containing alcohol did you have on a typical day when you were drinking in the past year? Response not required due to responses to other questions. 3. How often did you have six or more drinks on one occasion in the past year? Response not required due to responses to other questions. Patient had a negative AUDC score and does not require a follow-up Influenza Immunization (Nurse): Influenza Immunization Patient declined influenza immunization at this time. Comment: unavailable Herpes Zoster (Shingles) Vaccine: The patient declines to receive the herpes zoster vaccine. Comment: covid19 restrictions Food/Drug Interaction Ed (Nurse): Patient received food/drug interactions education at this encounter. Level of Understanding: Good Current Height: Current height recorded in vitals package: 69 in [175.3 cm) Robles Skin Evaluation (Outpatient): -Patient does not use wheelchair. -Patient is not confined to bed. -Patient does not require assistance for transfers/position changes. 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 -No history of pressure ulcer(s). -Patient currently has no pressure ulcer(s). Robles Skin Evaluation NOT completed in the last year, or 'no data available'. ROBLES RISK SKIN EVALUATION SCALE: PARAMETERS SCORE Sensory Perception: 4. No impairment Moisture: 4. Rarely moist Activity: 4 Walks frequently Mobility: 4. No limitation Nutrition: 2. Probably inadequate Friction/Shear: 3. No apparent problem EDUCATION: Pressure Ulcer education not indicated at this time. Daily Aspirin (Nurse): Patient does not take daily aspirin. Nutrition/Health Risk Scrn (Nurse): NUTRITION AND HEALTH RISK SCREEN: Has patient had any unintentional weight loss of more than 10 pounds in the last 3 months? Patient reports no unintentional weight loss >10 lbs in last three months. LDL greater than 130 mg/dl within last 6 months? No, patient has no LDL lab on file in last 6 months. Glyco Hgb A1C results in the last 6 months No, patient has no Glyco Hgb A1c lab on file in last 6 months. Is patient on warfarin ? No, patient is NOT on warfarin * * * * There were no "YES" responses to the above screening questions * * * * Pain Evaluation (Nurse): PAIN EVALUATION: Clinic Location: Primary Care Patient reports no pain present today. Pain Score: 0 Advance Directive Screen (Nurse): "Your Rights Regarding Advance Directives" was discussed and/or provided to patient/caregiver. ADVANCE DIRECTIVE SCREEN COPY of Advance Directive NOT on file in patient's medical record. Patient does not wish to create an Advance Directive. Information provided to patient. Tobacco Use Screening: The patient has never used tobacco. Homelessness/Food Insecurity Screen: In the past 2 months, have you been living in stable housing that you own, rent, or stay in as part of a household? Yes - Living in stable housing. Are you worried or concerned that in the next 2 months you may NOT have stable housing that you own, rent, or stay in as part of a household? No - Not worried about housing near future In the past three months did you ever run out of food and you were not able to access more food or have the money to buy more food? No - No Food shortage HIV Screening : Patient has been offered HIV testing and has declined. I have explained that HIV testing is recommended for all adults, even if all risk factors are absent. /marilyn/ JAY GUERRERO LPN PRIMARY CARE SERVICE Signed: 03/29/2020 10:17 JAY GUERRERO [facility]
--- OUTSIDE RECORDS SUMMARY | 2020-04-30 08:14 | XMS REPORT | Continuity of Care Document ---
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 disorder with mixed anxiety and depressed mood with Provider Comments: Adjustment Disorder with mixed Anxiety and depressed mood KENA RAGSDALE 06/01/2019 [facility] Outpatient Encounter [id number] _MAPID:en [id number] 06/03/2019 [facility] Outpatient Encounter [id number] _MAPID:en [email or web address] 06/24/2019 [facility] Outpatient Encounter [id number] _MAPID:en [email or web address] 06/24/2019 [facility] Outpatient Encounter [id number] _MAPID:en [id number] 06/30/2019 [facility] Outpatient Encounter [id number] _MAPID:en [id number] 07/05/2019 [facility] Outpatient Encounter [id number] _MAPID:en [id number] 07/07/2019 [facility] Outpatient Encounter [id number] _MAPID: [id number] 08/31/2019 [facility] Outpatient Encounter [id number] _MAPID:en [id number] 09/08/2019 [facility] Outpatient Encounter [id number] ICD-10- CM F33.9 Major depressive disorder, recurrent, unspecified with Provider Comments: Depression ([facility] [id number]) MARQUIS RACHEL 09/21/2019 [facility] OFFICE/OUT PATIENT VISIT EST [id number] ICD-10- CM F43.23 Adjustment disorder with mixed anxiety and depressed mood with Provider Comments: Adjustment Disorder with mixed Anxiety and depressed mood KENA RAGSDALE 09/21/2019 [facility] Outpatient Encounter [id number] _MAPID:en [id number] 09/24/2019 [facility] Outpatient Encounter [id number] _MAPID:en [email or web address] 10/23/2019 [facility] Outpatient Encounter [id number] ICD-10- CM Z46.1 Encounter for fitting and adjustment of hearing aid with Provider Comments: Encounter for Fitting and Adjustment of Hearing Aid MILI JJ 12/17/2019 [facility] Outpatient Encounter [id number] _MAPID:en [email or web address] 12/29/2019 [facility] Outpatient Encounter [id number] _MAPID:en [id number] 01/18/2020 [facility] Outpatient Encounter [id number] ICD-10- CM Z71.89 Other specified counseling with Provider Comments: Counseling,Oth Specified MAGEN CORONA F 01/18/2020 [facility] Outpatient Encounter [id number] _MAPID:en [id number] 02/04/2020 [facility] Outpatient Encounter [id number] ICD-10- CM Z71.89 Other specified counseling with Provider Comments: Counseling,Oth Specified MAGEN CORONA F 02/28/2020 [facility] Outpatient Encounter [id number] _MAPID:en [email or web address] 02/29/2020 [facility] Outpatient Encounter [id number] _MAPID:en dReason7 03/06/2020 [facility] Outpatient Encounter [id number] _MAPID:en dReason6 03/21/2020 [facility] Outpatient Encounter [id number] ICD-10-CM Z71.89 Other specified counseling with Provider Comments: Counseling,Oth Specified JAY GUERRERO 03/29/2020 [facility] Outpatient Encounter [id number] _MAPID: [email or web address] 04/05/2020 [facility] Outpatient Encounter [id number] _MAPID:en dReason3 04/05/2020 [facility] Outpatient Encounter [id number] _MAPID:en dReason2 04/07/2020 [facility] Outpatient Encounter [id number] ICD-10- CM N39.0 Urinary tract infection, site not specified with Provider Comments: Urinary tract infection, site not specified ALEXANDRA REYES 04/12/2020 [facility] Procedures No Data Provided for This Section Social History Combined list of available smoking, tobacco, and other social history on record at Department of Defense and/or Veterans Affairs facilities. The included entrie s comply with the patient's data sharing authorizations. Social History Type Response Date Comment Source Tobacco smoking status NEIS V16 TOBACCO USE SCREEN 03/29/2020 [facility] History of tobacco use VA-TO BACCO NEVER USED 03/29/2020 [facility] History of tobacco use VA-TO BACCO NEVER USED 11/03/2018 [facility] History of tobacco use V16 T OBACCO USE SCREEN 11/03/2018 [facility] History of tobacco use V16 T OBACCO USE SCREEN 10/24/2017 [facility] History of tobacco use V16 L IFETIME NON-TOBACCO USER 10/24/2017 [facility] History of tobacco use V16 T OBACCO USE SCREEN 12/25/2016 [facility] History of tobacco use V16 L IFETIME NON-TOBACCO USER 12/25/2016 [facility] History of tobacco use V16 T OBACCO USE SCREEN 01/03/2016 [facility] History of tobacco use V16 L IFETIME NON-TOBACCO USER 01/03/2016 [facility] History of tobacco use V16 T OBACCO USE SCREEN 12/27/2014 [facility] History of tobacco use V16 L IFETIME NON-TOBACCO USER 12/27/2014 [facility] History of tobacco use V16 T OBACCO USE SCREEN 12/29/2013 [facility] History of tobacco use V16 L IFETIME NON-TOBACCO USER 12/29/2013 [facility] History of tobacco use V16 T OBACCO USE SCREEN 06/24/2012 [facility] History of tobacco use V16 L IFETIME NON-TOBACCO USER 06/24/2012 [facility] History of tobacco use V16 T OBACCO USE SCREEN 12/18/2010 [facility] History of tobacco use V16 L IFETIME NON-TOBACCO USER 12/18/2010 [facility] History of tobacco use V16 T OBACCO USE SCREEN 11/30/2009 [facility] History of tobacco use V16 L IFETIME NON-TOBACCO USER 11/30/2009 [facility] History of tobacco use V16 T OBACCO USE SCREEN 11/25/2008 [facility] History of tobacco use V16 L IFETIME NON-TOBACCO USER 11/25/2008 [facility] History of tobacco use V16 T OBACCO USE SCREEN 01/08/2008 [facility] History of tobacco use V16 L IFETIME NON-TOBACCO USER 01/08/2008 [facility] History of tobacco use V16 T OBACCO USE SCREEN 04/28/2007 [facility] History of tobacco use V16 T OBACCO CESSATION >7 YEARS 04/28/2007 [facility] History of tobacco use V16 T OBACCO USE SCREEN 09/29/2006 [facility] History of tobacco use V16 T OBACCO CESSATION > 12 MONTHS 09/29/2006 [facility] History of tobacco use LIFET SHIRLENE NON-TOBACCO USER 05/21/2001 [facility] History of tobacco use LIFET SHIRLENE NON-TOBACCO USER 11/20/2000 [facility] Assessment and Plan No Data Provided for This Section Plan of Care Date/Time Care Activity Care Activity Detail Facility 05/24/2020 AMBULATORY - NONE AMBULATORY - NONE [facility] 05/16/2020 AMBULATORY - PSYCHI ATRY AMBULATORY - PSYCHIATRY [facility] Family History No Data Provided for This Section Advance Directives No Data Provided for This Section Functional Status No Data Provided for This Section
--- OUTSIDE RECORDS SUMMARY | 2020-04-30 08:14 | XMS REPORT | Encounter Summary ---
Author Author Department [facility] MARGARET pereira Department of [facility] Address [address] [place] [address] Phone Unavailable Care Team Providers Care Feed House Supervisor Name Role Phone KESHAWN SHERMAN PCP Unavailable [...] PART A Aug 20, 2011 PART A [id number] [phone] GUILLERMOMARGARET PATIENT MEDICARE (WNR) MEDICARE (M) PART B Aug 20, 2011 PART B [id number] [phone] GUILLERMOMARGARET PATIENT MEDICARE (WNR) MEDICARE (M) PART A Aug 20, 2011 PART A [id number] [phone] GUILLERMOMARGARET PATIENT MEDICARE (WNR) MEDICARE (M) PART B Aug 20, 2011 PART B [id number] 80A [phone] GUILLERMOMARGARET PATIENT Selected Encounter This section includes the information on record at [place] for the Encounter. Date/Time Encounter Type Encounter Description Reason Provider Source Jun 24, 2019 02:15 PM Outpatient Encounter ADMIN PAT ACTIVTIES (MASNO NCT) [facility]IQUE [place] IHE Encounter Template Text not used by [facility] Assessments - Encounter Diagnoses No Data Provided for This Section Plan of Treatment: Future Appointments (+ 6 months) and Future Tests (+/- 45 day s) The Plan of Treatment section includes future care activities for the patient fr om all [place] treatment facilities. This section includes future appointments and fu ture orders which are active, pending or scheduled. Future Appointments This section includes appointments that were scheduled t o occur 6 months from the date of the Encounter, up to a maximum of 20 appointme nts. The data comes from all [place] treatment [place]. Appointment Date/Time Appointment Type Appointment Facili ty Name Jun 25, 2019 11:00 AM AMBULATORY - NONE [facility] Jun 25, 2019 02:00 PM AMBULATORY - MEDICINE [facility] Jun 28, 2019 02:15 PM AMBULATORY - MEDICINE [facility] Jun 30, 2019 02:15 PM AMBULATORY - MEDICINE [facility] Jul 05, 2019 02:15 PM AMBULATORY - MEDICINE [facility] Aug 31, 2019 02:30 PM AMBULATORY - PSYCHIATRY [facility] Aug 31, 2019 02:35 PM AMBULATORY - PSYCHIATRY [facility] Sep 21, 2019 02:30 PM AMBULATORY PSYCHIATRY [facility] Sep 21, 2019 02:35 PM AMBULATORY - PSYCHIATRY [facility] Dec 17, 2019 02:00 PM AMBULATORY - MEDICINE [facility] Surgical Procedures: All associated to the encounter No Data Provided for This Section Lab Results: +/- 30 days of the encounter This section includes the Chemistry and Hematology Lab R esults on record with [place] for the patient. Radiology Reports and Pathology Report s are provided separately, in subsequent sections. Lab Results This section contains the Chemistry/Hematology Results ysabel t were resulted 30 days before or 30 days after the date of the Encounter. Date/Time Source Result Type Result - Unit Interpretation Reference Range Comment Jun 25, 2019 12:44 PM [facility] CBC Specimen Type: BLOOD Comment: See manual differential. MPV (FV) 10.3 fL 7.4-10.4 RDW (FV) 12.8 % 11.5-14.5 HCT (FV) 33.0 % L 40-52 HGB (FV) 11.2 g/dL L 13-18 PLT (FV) 337 K/cmm 150-440 WBC (FV) 11.2 K/cmm H 3.8-10.6 RBC (FV) 3.87 M/cmm L 4.4-5.9 MCV (FV) 85.2 fL 80-100 MCH (FV) 28.9 pg 26-34 MCHC (FV) 33.9 g/dL 32-36 Jun 25, 2019 12:44 PM [facility] DIFFERENTIAL Specimen Type: BLOOD Comment: See manual differential. SEGS 80 % H 36-66 LYMPHS 12 % L 19-53 MONOS 5 % 0-9 EOSINO 3 % 0-8 NORMOCYTIC Yes PLT (ESTM) ADEQ NL Jun 25, 2019 12:44 PM [facility] RENAL PROFILE Specimen Type: SERUM No comment entered. GLUCOSE (FV) 119 mg/dL H 70-110 CHLORIDE (FV) 96 mmol/L L 98-107 SODIUM (FV) 130 mmol/L L 136-145 POTASSIUM (FV) 4.0 mmol/L 3.5-5.1 CO2 (FV) 24 mmol/L 21-32 UREA NITROGEN (FV) 22 mg/dL H 6-20 CALCIUM (FV) 8.6 mg/dL L 8.9-10.3 eGFR 49 CREATININE (FV) 1.43 mg/dL H .61-1.24 Jun 25, 2019 12:44 PM [facility] SERUM PEP(PRO. ELECTROPHO RSIS) Specimen Type: SERUM Comment: SPEP appears normal. No M spike seen. Reviewed by Alec Elias MD, [facility] ALPHA 1 GLOBULINS (G/DL) 0.2 g/dL 0.1-0 .4 ALPHA 2 GLOBULINS (G/DL) 0.8 g/dL 0.4-1 .0 BETA GLOBULINS (G/DL) 0.8 g/dL 0.5-1.1 GAMMA GLOBULINS (G/DL) 1.1 g/dL 0.5-1.7 P.E. TOTAL PROTEIN 6.8 g/dL 6.1-7.9 P.E. ALBUMIN 3.9 g/dL 3.2-5.1 M-SPIKE 0.0 g/dL NOT DETECTED Jun 25, 2019 12:44 PM [facility] KAPPA/LAMBDA LIGHT CHAINS , FREE, SERUM Specimen Type: SERUM No comment entered. FREE KAPPA LT CH, SER 42.40 mg/L H 3.30-19 .40 FREE LAMBDA LT CH, SER 26.10 mg/L 5.71-2 6.30 FREE K/L RATIO, SER 1.62 ratio 0.26-1.65 Vital Signs: All taken on the encounter date No Data Provided for This Section Immunizations: All administered on the encounter date No Data Provided for This Section Social History: Smoking Status (Most current) and Tobacco Use (All prior to enco unter date) This section includes the most current, and the historical, smoking and tobacco- related health factors from the [place] facility where the Encounter took place. Current Smoking Status This section includes the most current smoking, or tobacco -related health factor, from the [place] facility where the Encounter took place. Date/Time Current Smoking Status Comment Facility Nov 03, 2018 09:51 AM VA-TOBACCO NEVER USED [place] [facility] Tobacco Use History This section includes a history of the smoking, or tobacco -related health factors, that were collected on or before the date of the Encoun ter. The data comes from the [place] facility where the Encounter took place. Date/Time Smoking Status/Tobacco Use Comment [facility] it Nov 03, 2018 09:51 AM VA-TOBACCO NEVER USED [place] [facility] [place] Oct 24, 2017 10:25 AM V16 LIFETIME NON-TOBACCO USER [place] Oct 24, 2017 10:25 AM V16 TOBACCO USE [place]CREEN [place] Dec 25, 2016 01:31 PM V16 LIFETIME NON-[place]BACCO [place] Dec 25, 2016 01:31 PM V16 TOBACCO USE [place]CRE[place] Jan 03, 2016 08:51 AM V16 LIFETIME NON-[place]BAC[place] Jan 03, 2016 08:51 AM V16 TOBACCO USE [place]CRE[place] Dec 27, 2014 04:28 PM V16 LIFETIME NON-[place]BACCO US[place] Dec 27, 2014 04:28 PM V16 TOBACCO USE [place]CRE[place] Dec 29, 2013 03:57 PM V16 LIFETIME NON-[place]BACCO [place] Dec 29, 2013 03:57 PM V16 TOBACCO USE [place]CRE[place] Jun 24, 2012 12:25 PM V16 LIFETIME NON-[place]BACCO USER [place] Jun 24, 2012 12:25 PM V16 TOBACCO USE [place]CRE[place] Dec 18, 2010 01:24 PM V16 LIFETIME NON-[place]BACCO USER [place] Dec 18, 2010 01:24 PM V16 TOBACCO USE SCREEN [place] Nov 30, 2009 01:24 PM V16 LIFETIME NON-TOBACCO USER [place] Nov 30, 2009 01:24 PM V16 TOBACCO USE SCREEN [facility] [place] Nov 25, 2008 01:22 PM V16 LIFETIME NON-TOBACCO USER [place] Nov 25, 2008 01:22 PM V16 TOBACCO USE SCREEN [place] [place] Jan 08, 2008 12:49 PM V16 LIFETIME NON-TOBACCO USER SHAE [place]AD[place] Jan 08, 2008 12:49 PM V16 TOBACCO USE SCREEN [place] Apr 28, 2007 01:53 PM V16 TOBACCO CESSATION >7 YEARS [place] Apr 28, 2007 01:53 PM V16 TOBACCO USE SCREEN [facility] [place] Sep 29, 2006 01:44 PM V16 TOBACCO CESSATION > 12 MONTHS MARIA DE JESUS BUTLER [place] Sep 29, 2006 01:44 PM V16 TOBACCO USE SCREEN [place] May 21, 2001 11:04 AM LIFETIME NON-TOBACCO USER MARY ZHANG [place] Nov 20, 2000 01:09 PM LIFETIME NON-TOBACCO USER MARY ZHANG [place] Advance Directives: All historical and current No Data Provided for This Section Allergies and Adverse Reactions (ADRs): All historical and current Section Date Range: From patient's date of to the date document was create d. This section includes Allergies and Adverse Reactions (ADR s) on record with [facility] for the patient. The data comes from a ll [place] treatment facilities. It does not list Allergies/ADRs that were removed or entered in error. Some allergies/ADRs may be reported in t he Immunization section. Allergen Event Date Event Type Reaction(s) Severity Source [place] Feb 07, 2000 Propensity to adverse reactions to drug (diso rder) [place] Medications: VA dispensed (-15 months) and Non-VA Documented (Obtained Outside A) Section Date Range: 1) prescriptions processed by a VA pharmacy in the last 15 m [facility], and 2) all medications recorded in the [place] medical record as "non-VA medic ations". Pharmacy terms refer to VA pharmacy's work on prescriptions. VA patient s are advised to take their medications as instructed by their health care team. The data comes from all [place] treatment facilities. Glossary of Pharmacy Terms:Active = A prescription that can be filled at the local [place] pharmacy.Active: On Hold = An active prescription that will not be filled until pharmacy resolves the issue.Active: Susp = An active prescription that is not scheduled to be filled yet.Clinic Order = A medication received during a visit to a [place] clinic or emergency department (currently not available).Discontinued = A prescription stopped by a [place] provider. It is no longer available to be filled. = A prescription which is too old to fill. This does not refer to the expiration date of the medication in the container. Non-VA = A medication that came from someplace other than a [place] pharmacy. This may be a prescription from either the [place] or other providers that was filled outside the [place]. Or, it may be an over the [...] FOR BLOOD PRESSURE 90 Sep 24, 2020 [id number] Apr 07, 2020 V KESHAWN VAUGHN [facility] ATENOLOL 50MG/CHLORTHALIDONE 25MG TAB Discontinued TA KE 1 TABLET BY MOUTH EVERY MORNING FOR BLOOD PRESSURE 90 Oct 17, 2019 [id number] Jul 26, 2019 V KESHAWN VAUGHN [facility] ATORVASTATIN CA 80MG TAB Active TAKE ONE-HALF T ABLET BY MOUTH AT BEDTIME FOR CHOLESTEROL - DO NOT TAKE WITH GRAPEFRUIT JUICE 45 Apr 11, 2021 [id number] Apr 10, 2020 KESHAWN SHERMAN [facility] ATORVASTATIN CA 80MG TAB Discontinued TAKE ONE-HALF T ABLET BY MOUTH AT BEDTIME FOR CHOLESTEROL - DO NOT TAKE WITH GRAPEFRUIT JUICE 45 Dec 23, 2019 [id number] Oct 14, 2019 KESHAWN SHERMAN [facility] CARBOXYMETHYLCELLULOSE NA 0.5% SOLN,OPH INSTILL ONE DROP IN EACH EYE FOUR TIMES DAILY Feb 10, 2020 [id number] Feb 09, [address] [facility] CARBOXYMETHYLCELLULOSE NA 1% GEL,OPH INS TILL ONE DROP TO EACH EYE TWICE A DAY Feb 10, 2020 [id number] Feb 09, 2019 MAGEN CORONA [facility] CIPROFLOXACIN HCL 500MG TAB Active TAKE ONE TAB LET BY MOUTH TWICE A DAY - ANTIBIOTIC - TAKE UNTIL GONE *TAKE WITH FOOD AND AVOID TAKING WITH DAIRY OR PRODUCTS CONTAINING ALUMINUM, IRON, CALCIUM, OR MAGNESIUM* 14 J 2019 [id number] Apr 12, [address] [facility] FAMOTIDINE 40MG TAB Active TAKE ONE TABLET BY M OUTH ONCE DAILY FOR STOMACH/REFLUX 30 Apr 12, 2021 [id number] Apr 11, 2020 KESHAWN SHERMAN [facility] FAMOTIDINE 40MG TAB Discontinued TAKE ONE TABLET BY M OUTH ONCE DAILY FOR STOMACH/REFLUX 90 Sep 24, 2020 [id number] Dec 29, 2019 KESHAWN SHERMAN [facility] FLUTICASONE PROPIONATE 50MCG/SPRAY SOLN,NASAL,16GM Active USE 2 SPRAYS IN NOSE TWICE A DAY SHAKE GENTLY BEFORE USE 3 Apr 11, 2021 [id number] J [address] [facility] PROPIONATE 50MCG/SPRAY SOLN,NASAL,16GM Discontin ued USE 2 SPRAYS IN NOSE TWICE A DAY SHAKE GENTLY BEFORE USE 3 Dec 23, 2019 [id number] Jul 26, 2019 KESHAWN SHERMAN [facility] IBUPROFEN 600MG TAB Non- VA TAKE ONE TABLET BY MOUTH THREE TIMES DAILY WITH MEALS NEEDED Non-VA Documented by: KESHAWN SHERMAN Docume nted at: [facility] [place] MAGNESIUM OXIDE 420MG TAB Active TAKE ONE TABLE T BY MOUTH TWICE A DAY TAKE WITH FOOD 100 Apr 11, 2021 [id number] Apr 10, 2020 KESHAWN SHERMAN [facility] MAGNESIUM OXIDE 420MG TAB Discontinued TAKE ONE TABLE T BY MOUTH TWICE A DAY TAKE WITH FOOD 100 Jan 14, 2020 [id number] Dec 29, 2019 KESHAWN SHERMAN [facility] OMEPRAZOLE 20MG CAP,EC Active TAKE 1 CAPSULE BY MOUTH ONCE DAILY FOR THE STOMACH 90 Dec 30, 2020 [id number] Apr 07, 2020 KESHAWN SHERMAN [facility] OMEPRAZOLE 20MG CAP,EC Discontinued TAKE 1 CAPSULE BY MOUTH ONCE DAILY FOR THE STOMACH 90 Dec 23, 2019 [id number] Oct 14, 2019 KESHAWN SHERMAN [facility] POTASSIUM CHLORIDE 20MEQ TAB,SA (DISPERSIBLE) Active TAKE ONE TABLET BY MOUTH ONCE DAILY WITH FOOD 90 Dec 30, 2020 [id number] Apr 19, [address] [facility] POTASSIUM CHLORIDE 20MEQ TAB,SA (DISPERSIBLE) Discontinued TAKE ONE TABLET BY MOUTH ONCE DAILY WITH FOOD 90 Dec 23, 2019 [id number] Nov 11, 2019 KESHAWN JOHNSON [facility] RANITIDINE HCL 150MG TAB Discontinued TAKE TWO TABLET S BY MOUTH AT BEDTIME FOR STOMACH 180 Dec 23, 2019 [id number] Jul 26, 2019 KESHWAN SHERMAN [place] VENLAFAXINE HCL 37.5MG 24HR CAP,SA Active TAKE 3 CAPSULES BY MOUTH EVERY MORNING FOR MOOD 270 Apr 08, 2021 [id number] Apr 07, 2020 KENA RAGSDALE [facility] VENLAFAXINE HCL 37.5MG 24HR CAP,SA Discontinued TAKE 3 CAPSULES BY MOUTH EVERY MORNING FOR MOOD 270 Jun 01, 2020 [id number] Dec 29, 2019 KENA RAGSDALE [facility] VENLAFAXINE HCL 75MG 24HR CAP,SA Discontinued TAKE ON E CAPSULE BY MOUTH EVERY MORNING FOR MOOD 90 Apr 13, 2020 [id number] Apr 13, 2019 KESHAWN SHERMAN [facility] Problems (Conditions): All historical and current Section Date Range: From patient's date of to the date document was create d. This section includes a list of Problems (Conditions) know n to [facility] for the patient. It includes both active and inacti ve problems (conditions). The data comes from all [place] treatment facilities. 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 [facility] Depression Active 94643599 KESHAWN SHERMAN Gastroesophageal reflux disease (SNOMED CT 490874703) Active [id number] Nov 30, 2009 Entered By: FRANCO HERNANDEZ Comment: hiatal herniaFeb 2009 Entered By: FRANCO HERNANDEZ Comment: schiatzski ringFeb 2010 Entered By: FRANCO HERNANDEZ Comment: omeprazole and Zantac.Jun 24, 2012 Entered By: FRANCO HERNANDEZ Comment: GERD KESHAWN SHERMAN H/O: surgery Active [id number] Aug 21, 2012 Entered By: FRANCO HERNANDEZ [...] HERNANDEZ History of polyp of colon Active 370619100 February 24, 2009 Entered By: FRANCO HERNANDEZ Comment: next colonoscopy 2008 Entered By: FRANCO HERNANDEZ Comment: tubulovilousNov 2011 Entered By: FRANCO HERNANDEZ Comment: AUG 20, 2012@14:08:51 Colonoscopy :Diverticulosis Aug 21, 2012 Entered By: FRANCO HERNANDEZ Comment: Repeat of Colonoscopy in 5 years 2017 Entered By: KESHAWN SHERMAN Comment: he refuses repeat colonoscopy KESHAWN SHERMAN Hyperlipidemia Active 09041191 KESHAWN SHERMAN Hypertension Active 08161698 KESHAWN SHERMAN 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 Dec 28, 2014 Entered By: KESHAWN SHERMAN Comment: Inability to void, was seen March 2013 with catheter placedDec 28, 2014 Entered By: KESHAWN SHERMAN Comment: Now has permanent suprapubic catheterDec 28, 2014 Entered By: KESHAWN SHERMAN Comment: D/c terazosin KESHAWN SHERMAN Impaired glucose tolerance Active 4042150 Dec 31, 2013 Entered By: KESHAWN SHERMAN Comment: A1c 5.9% Dec Entered By: KESHAWN SHERMAN Comment: 5.9% December Entered By: KESHAWN SHERMAN Comment: A1c 5.9% December Entered By: KESHAWN SHERMAN Comment: a1c 6.3% December 2018 KESHAWN SHERMAN Lumbago Active 210014067 KESHAWN SHERMAN Monoclonal gammopathy of uncertain significance Active 123940980 KESHAWN SHERMAN Obesity Active 278.00 Nov 27, [...] Entered By: FRANCO HERNANDEZ Comment: descending and sigmoidNov 2011 Entered By: FRANCO HERNANDEZ Comment: AUG 20, 2012@14:08:51 Colonoscopy :Diverticulosis FRANCO HERNANDEZ HYPERCHOLESTEROLEMIA Inactive 272.0 Dec 25, 2017 Se p 2011 Entered By: FRANCO HERNANDEZ Comment: low chol dietSep 2011 Entered By: FRANCO HERNANDEZ Comment: ldl =90 on crestor 10 FRANCO HERNANDEZ Hypertension Inactive 401.9 Dec 25, 2017 Jun 24 Entered By: FRANCO HERNANDEZ Comment: HTNSep 2011 Entered By: FRANCO HERNANDEZ Comment: low salt dietSep 2011 Entered By: FRANCO HERNANDEZ Comment: chlorthalidone 25 / atenolol 50Sep 2011 Entered By: FRANCO HERNANDEZ Comment: target BP < 130/80 FRANCO HERNANDEZ Internal hemorrhoids without mention of complication Inactive 4 55.0 Dec 25, 2017 FRANCO HERNANDEZ LUMBAGO/LOW BACK PAIN Inactive 724.2 Dec 25, 2017 PROV DAJA SAMPSON Noncompliance, Medication Regimen (ICD-9-CM V15.81) Inactive V1 5.81 Dec 25, 2017 STEPHEN BARAJAS Radiology Reports: +/- 30 days of the encounter No Data Provided for This Section Pathology Reports: +/- 30 days of the encounter No Data Provided for This Section Encounter Notes: All associated encounter notes No Data Provided for This Section
--- OUTSIDE RECORDS SUMMARY | 2020-04-30 08:14 | XMS REPORT | Encounter Summary ---
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 Date/Time Encounter Type Encounter Description Reason Provider Source Mar 21, 2020 01:30 PM Outpatient [facility] Encounter Template Text not used by MS Assessments - Encounter Diagnoses No Data Provided for This Section Plan of Treatment: Future Appointments (+ 6 months) and Future Tests (+/- 45 day s) The Plan of Treatment section includes future care activities for the patient fr om all [place] treatment facilities. This section includes future appointments and fu ture orders which are active, pending or scheduled. Future Appointments This section includes appointments that were scheduled t o occur 6 months from the date of the Encounter, up to a maximum of 20 appointme nts. The data comes from all [facility]. Appointment Date/Time Appointment Type Appointment Facili ty Name Mar 31, 2020 01:00 PM AMBULATORY - NONE [facility] Apr 05, 2020 07:30 AM AMBULATORY NONE [facility] Apr 05, 2020 08:30 AM AMBULATORY NONE [facility] Apr 12, 2020 09:30 AM AMBULATORY - MEDICINE [facility] May 16, 2020 11:00 AM AMBULATORY NONE [facility] May 24, 2020 02:00 PM AMBULATORY - PSYCHIATRY [facility] IC Surgical Procedures: All associated to the encounter No Data Provided for This Section Lab Results: +/- 30 days of the encounter This section includes the Chemistry and Hematology Lab R esults on record with [facility] for the patient. Radiology Reports and Pathology Report s are provided separately, in subsequent sections. Lab Results This section contains the Chemistry/Hematology Results ysabel t were resulted 30 days before or 30 days after the date of the Encounter. Date/Time Source Result Type Result - Unit Interpretation Reference Range Comment Apr 05, 2020 07:35 AM [facility] MAGNESIUM Specimen Type: SERUM No comment entered. MAGNESIUM (FV) 1.9 mg/dL 1.8-2.4 Apr 05, 2020 07:35 AM [facility] TSH (FV) Specimen Type: SERUM No comment entered. TSH () 1.41 mcIU/mL 0.45-5.33 Apr 05, 2020 07:35 AM [facility] RENAL+LIVER PROFILE Specimen Type: SERUM No comment [...] H .61-1.24 Apr 05, 2020 07:35 AM [facility] CBC Specimen Type: BLOOD No comment entered. [...] K/cmm 0.0-0.2 Apr 05, 2020 07:35 AM [facility] B12 Specimen Type: SERUM No comment entered. VITAMIN B12 (FV) 243 pg/mL 180-914 Apr 05, 2020 07:35 AM [facility] GLYCO HGB A1C Specimen Type: BLOOD No comment entered. Glyco Hgb A1C 6.3 % H 4.2-5.8 Apr 05, 2020 07:35 AM [facility] LIPID PROFILE Specimen Type: SERUM No comment entered. CHOLESTEROL, TOTAL (FV) 186 mg/dL 118-20 0 TRIGLYCERIDE (FV) 114 mg/dL <150 LDL CHOLESTEROL (CALCULATED) 118 HDL CHOLESTEROL (FV) 45 mg/dL >40 Apr 05, 2020 07:35 AM [facility] URINALYSIS Specimen Type: URINE No comment entered. [...] H NEG-74 Apr 05, 2020 07:35 AM [facility] MICROSCOPIC URINALYSIS Specimen Type: URINE Comment: Specimen [...] and tobacco- related health factors from the [facility] facility where the Encounter took place. Current Smoking Status This section includes the most current smoking, or tobacco -related health factor, from the [facility] facility where the Encounter took place. Date/Time Current Smoking Status Comment Facility Nov 03, 2018 09:51 AM [facility]-TOBACCO NEVER USED [place] [facility] Tobacco Use History This section includes a history of the smoking, or tobacco -related health factors, that were collected on or before the date of the Encoun ter. The data comes from the [facility] facility where the Encounter took place. Date/Time Smoking Status/Tobacco Use Comment [facility] Nov 03, 2018 09:51 AM [facility]-TOBACCO NEVER USED [place] [facility] Oct 24, 2017 10:25 AM V16 LIFETIME NON-TOBACCO USER [place] Oct 24, 2017 10:25 AM V16 TOBACCO USE SCREEN [place] Dec 25, 2016 01:31 PM V16 LIFETIME NON-TOBACCO USER [place] Dec 25, 2016 01:31 PM V16 TOBACCO USE SCREEN [place] Jan 03, 2016 08:51 AM V16 LIFETIME NON-TOBACCO USER [place] Jan 03, 2016 08:51 AM V16 TOBACCO USE SCREEN [place] Dec 27, 2014 04:28 PM V16 LIFETIME NON-TOBACCO USER [place] Dec 27, 2014 04:28 PM V16 TOBACCO USE SCREEN [place] Dec 29, 2013 03:57 PM V16 LIFETIME NON-TOBACCO USER [place] Dec 29, 2013 03:57 PM V16 TOBACCO USE SCREEN [place] Jun 24, 2012 12:25 PM V16 LIFETIME NON-TOBACCO USER [place] Jun 24, 2012 12:25 PM V16 TOBACCO USE SCREEN [place] Dec 18, 2010 01:24 PM V16 LIFETIME NON-TOBACCO USER [place] Dec 18, 2010 01:24 PM V16 TOBACCO USE SCREEN [place] Nov 30, 2009 01:24 PM V16 LIFETIME NON-TOBACCO USER [place] Nov 30, 2009 01:24 PM V16 TOBACCO USE SCREEN [place] Nov 25, 2008 01:22 PM V16 LIFETIME NON-TOBACCO USER [place] Nov 25, 2008 01:22 PM V16 TOBACCO USE SCREEN [place] Jan 08, 2008 12:49 PM V16 LIFETIME NON-TOBACCO USER [place] Jan 08, 2008 12:49 PM V16 TOBACCO USE SCREEN [place] Apr 28, 2007 01:53 PM V16 TOBACCO CESSATION >7 YEARS [place] Apr 28, 2007 01:53 PM V16 TOBACCO USE SCREEN [place] Sep 29, 2006 01:44 PM V16 TOBACCO CESSATION > 12 MONTHS MARIA DE JESUS [place] Sep 29, 2006 01:44 PM V16 TOBACCO USE SCREEN [place] May 21, 2001 11:04 AM LIFETIME NON-TOBACCO USER [facility]ONG Nov 20, 2000 01:09 PM LIFETIME NON-TOBACCO USER MARIA DE JESUSKARLASHIRAELIEL LEATHA [place] Advance Directives: All historical and current No Data Provided for This Section Allergies and Adverse Reactions (ADRs): All historical and current Section Date Range: From patient's date of to the date document was create d. This section includes Allergies and Adverse Reactions (ADR s) on record with [facility] for the patient. The data comes from a ll [place] treatment facilities. It does not list Allergies/ADRs that were removed or entered in error. Some allergies/ADRs may be reported in t he Immunization section. Allergen Event Date Event Type Reaction(s) Severity Source [place] Feb 07, 2000 Propensity to adverse reactions to drug (diso rder) UNIQUE [place] Medications: VA dispensed (-15 months) and Non-VA Documented (Obtained Outside V A) Section Date Range: 1) prescriptions processed by a VA pharmacy in the last [address] [facility], and 2) all medications recorded in the [place] medical record as "non-VA medic ations". Pharmacy terms refer to VA pharmacy's work on prescriptions. VA patient s are advised to take their medications as instructed by their health care team. The data comes from all [place] treatment facilities. Glossary of Pharmacy Terms:Active = A prescription that can be filled at the local [place] pharmacy.Active: On Hold = An active prescription that will not be filled until pharmacy resolves the issue.Active: Susp = An active prescription that is not scheduled to be filled yet.Clinic Order = A medication received during a visit to a [place] clinic or emergency department (currently not available).Discontinued = A prescription stopped by a VA provider. It is no longer available to be filled. = A prescription which is too old to fill. This does not refer to the expiration date of the medication in the container. Non-VA = A medication that came from someplace other than a VA pharmacy. This may be a prescription from either the VA or other providers that was filled outside the VA. Or, it may be an over the [...] FOR BLOOD PRESSURE 90 Sep 24, 2020 [id number] Apr 07, 2020 V KESHAWN VAUGHN [facility] ATENOLOL 50MG/CHLORTHALIDONE 25MG TAB Discontinued TA KE 1 TABLET BY MOUTH EVERY MORNING FOR BLOOD PRESSURE 90 Oct 17, 2019 [id number] Jul 26, 2019 V KESHAWN VAUGHN [facility] ATORVASTATIN CA 80MG TAB Active TAKE ONE-HALF T ABLET BY MOUTH AT BEDTIME FOR CHOLESTEROL - DO NOT TAKE WITH GRAPEFRUIT JUICE 45 Apr 11, 2021 [id number] Apr 10, 2020 KESHAWN SHERMAN [facility] ATORVASTATIN CA 80MG TAB Discontinued TAKE ONE-HALF T ABLET BY MOUTH AT BEDTIME FOR CHOLESTEROL - DO NOT TAKE WITH GRAPEFRUIT JUICE 45 Dec 23, 2019 [id number] Oct 14, 2019 KESHAWN SHERMAN [facility] CARBOXYMETHYLCELLULOSE NA 0.5% SOLN,OPH INSTILL ONE DROP IN EACH EYE FOUR TIMES DAILY 15 Feb 10, 2020 [id number] Feb 09, 2019 [facility] CARBOXYMETHYLCELLULOSE NA 1% GEL,OPH INS TILL ONE DROP TO EACH EYE TWICE A DAY 15 Feb 10, 2020 [id number] Feb 09, 2019 [facility] CIPROFLOXACIN HCL 500MG TAB Active TAKE ONE TAB LET BY MOUTH TWICE A DAY - ANTIBIOTIC - TAKE UNTIL GONE *TAKE WITH FOOD AND AVOID TAKING WITH DAIRY OR PRODUCTS CONTAINING ALUMINUM, IRON, CALCIUM, OR MAGNESIUM* 14 J 2019 [id number] Apr 12, 2020 ALEXANDRA REYES [facility] FAMOTIDINE 40MG TAB Active TAKE ONE TABLET BY M OUTH ONCE DAILY FOR STOMACH/REFLUX 30 Apr 12, 2021 [id number] Apr 11, 2020 KESHAWN SHERMAN [facility] FAMOTIDINE 40MG TAB Discontinued TAKE ONE TABLET BY M OUTH ONCE DAILY FOR STOMACH/REFLUX 90 Sep 24, 2020 [id number] Dec 29, 2019 KESHAWN SHERMAN [facility] FLUTICASONE PROPIONATE 50MCG/SPRAY SOLN,NASAL,16GM Active USE 2 SPRAYS IN NOSE TWICE A DAY SHAKE GENTLY BEFORE USE 3 Apr 11, 2021 [id number] J 2019 KESHAWN SHERMAN [facility] FLUTICASONE PROPIONATE 50MCG/SPRAY SOLN,NASAL,16GM Discontin ued USE 2 SPRAYS IN NOSE TWICE A DAY SHAKE GENTLY BEFORE USE 3 Dec 23, 2019 [id number] Jul 26, 2019 KESHAWN SHERMAN [facility] IBUPROFEN 600MG TAB Non- VA TAKE ONE TABLET BY MOUTH THREE TIMES DAILY WITH MEALS NEEDED Non-VA Documented by: KESHAWN SHERMAN Docume nted at: UNIQUE IN MAGNESIUM OXIDE 420MG TAB Active TAKE ONE TABLE T BY MOUTH TWICE A DAY TAKE WITH FOOD 100 Apr 11, 2021 [id number] Apr 10, 2020 [facility] MAG[facility]IDE 420MG TAB Discontinued TAKE ONE TABLE T BY MOUTH TWICE A DAY TAKE WITH FOOD 100 Jan 14, 2020 [id number] Dec 29, 2019 [facility] OMEPRAZOLE 20MG CAP,EC Active TAKE 1 CAPSULE BY MOUTH ONCE DAILY FOR THE STOMACH 90 Dec 30, 2020 [id number] Apr 07, 2020 KESHAWN SHERMAN [facility] OMEPRAZOLE 20MG CAP,EC Discontinued TAKE 1 CAPSULE BY MOUTH ONCE DAILY FOR THE STOMACH 90 Dec 23, 2019 [id number] Oct 14, 2019 KESHAWN SHERMAN [facility] POTASSIUM CHLORIDE 20MEQ TAB,SA (DISPERSIBLE) Active TAKE ONE TABLET BY MOUTH ONCE DAILY WITH FOOD 90 Dec 30, 2020 [id number] Apr 19, 2020 HAMLET SHERMAN [facility] POTASSIUM CHLORIDE 20MEQ TAB,SA (DISPERSIBLE) Discontinued TAKE ONE TABLET BY MOUTH ONCE DAILY WITH FOOD 90 Dec 23, 2019 [id number] Nov 11, 2019 [facility] RANITIDINE [facility]CL 150MG TAB Discontinued TAKE TWO TABLET S BY MOUTH AT BEDTIME FOR STOMACH 180 Dec 23, 2019 [id number] Jul 26, 2019 [facility] VENLAFAXINE HCL 37.5MG 24HR CAP,SA Active TAKE 3 CAPSULES BY MOUTH EVERY MORNING FOR MOOD 270 Apr 08, 2021 [id number] Apr 07, 2020 [place] [facility] VENLAFAXINE HCL 37.5MG 24HR CAP,SA Discontinued TAKE 3 CAPSULES BY MOUTH EVERY MORNING FOR MOOD 270 Jun 01, 2020 [id number] Dec 29, 2019 [facility]NA [facility] VENLAFAXINE HCL 75MG 24HR CAP,SA Discontinued TAKE ON E CAPSULE BY MOUTH EVERY MORNING FOR MOOD 90 Apr 13, 2020 [id number] Apr 13, 2019 KESHAWN SHERMAN [facility] Problems (Conditions): All historical and current Section Date Range: From patient's date of to the date document was create d. This section includes a list of Problems (Conditions) know n to [facility] for the patient. It includes both active and inacti ve problems (conditions). The data comes from all [place] treatment facilities. 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 Depression Active 24635985 [facility] disease (SNOMED CT 400081521) Active 2355 90470 Nov 30, 2009 Entered By: FRANCO HERNANDEZ Comment: hiatal herniaFe2009 Entered By: FRANCO HERNANDEZ Comment: schiatzski ringFeb 2010 Entered By: FRANCO HERNANDEZ Comment: omeprazole and Zantac.Jun 24, 2012 Entered By: FRANCO HERNANDEZ Comment: GERD KESHAWN SHERMAN H/O: surgery Active 184969240 Aug 21, 2012 Entered By: FRANCO HERNANDEZ [...] HERNANDEZ History of polyp of colon Active 414297573 February 24, 2009 Entered By: FRANCO HERNANDEZ Comment: next colonoscopy 2008 Entered By: FRANCO HERNANDEZ Comment: tubulovilousNov 2011 Entered By: FRANCO HERNANDEZ Comment: AUG 20, 2012@14:08:51 Colonoscopy :Diverticulosis Aug 21, 2012 Entered By: FRANCO HERNANDEZ Comment: Repeat of Colonoscopy in 5 years 2017 Entered By: KESHAWN SHERMAN Comment: he refuses repeat colonoscopy KESHAWN SHERMAN Hyperlipidemia Active 66095216 KESHAWN SHERMAN Hypertension Active 16978702 KESHAWN SHERMAN 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 Dec 28, 2014 Entered By: KESHAWN SHERMAN Comment: Inability to void, was seen March 2013 with catheter placedDec 28, 2014 Entered By: KESHAWN SHERMAN Comment: Now has permanent suprapubic catheterDec 28, 2014 Entered By: KESHAWN SHERMAN Comment: D/c terazosin KESHAWN SHERMAN Impaired glucose tolerance Active 8068315 Dec 31, 2013 Entered By: KESHAWN SHERMAN Comment: A1c 5.9% Dec Entered By: KESHAWN SHERMAN Comment: 5.9% December Entered By: KESHAWN SHERMAN Comment: A1c 5.9% December Entered By: KESHAWN SHERMAN Comment: a1c 6.3% December 2018 KESHAWN SHERMAN Lumbago Active 421779444 KESHAWN SHERMAN Monoclonal gammopathy of uncertain significance Active 950275054 KESHAWN SHERMAN Obesity Active 278.00 Nov 27, 2010 E ntered By: FRANCO HERNANDEZ Comment: bmi 36Dec 18, 2010 Entered By: FRANCO HERNANDEZ Comment: bmi 34 FRANCO HERNANDEZ Tinnitus Active 388.30 FRANCO HERNANDEZ Benign Prostatic Hypertrophy Inactive 799.9 Dec 25, 2017 Jun 24, 2012 Entered By: FRANCO HERNANDEZ Comment: BPH FRANCO HERNANDEZ Depression * (ICD-9-CM 300.4/311.) Inactive 311. M ar 2017Nov 27, 2010 Entered By: FRANCO HERNANDEZ Comment: on effexor STEPHEN BARAJAS Diverticulosis Inactive 562.10 Dec 25, 2017 February 24, 2009 Entered By: FRANCO HERNANDEZ Comment: descending and sigmoidNov 2011 Entered By: FRANCO HERNANDEZ Comment: AUG 20, 2012@14:08:51 Colonoscopy :Diverticulosis FRANCO HERNANDEZ HYPERCHOLESTEROLEMIA Inactive 272.0 Dec 25, 2017 Se p 2011 Entered By: FRANCO HRENANDEZ Comment: low chol dietSep 2011 Entered By: [...] the Encounter. Date/Time Encounter Note(s) Provider Source Jan 06, 2020 12:22 PM ADMINISTRATIVE NOTE: LOCAL TITLE: ADMINISTRATIVE NOTE STANDARD TITLE: ADMINISTRATIVE NOTE DATE OF NOTE: JAN 06, 2020@12:22 ENTRY DATE: JAN 06, 2020@12:22:47 AUTHOR: LETITIA GUTIERREZ EXP COSIGNER: URGENCY: STATUS: COMPLETED Called patient to see if he would like to reschedule his 01-11-2020 appt to a later date due to covid19. Patient asked to reschedule to March. Rescheduled w/patient for 03-21-2020 RESCHED PVR FROM 01-10 COVID19 PO 12-22-18 RTC MATCJ W/ B12 CBC A1C LIP MAG MAI ROSS TSH /es/ LETITIA GUTIERREZ PATIENT SERVICES MANAGER MASS-UNIQUE Signed: 01/06/2020 12:23 LETITIA GUTIERREZ
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
--- OUTSIDE RECORDS SUMMARY | 2020-04-30 08:15 | XMS REPORT | Encounter Summary ---
Author Author Department of [facility] MARGARET pereira Organization Department of [facility] Address [address] [place] [address] Phone Unavailable Care Team Providers Care Gym Supervisor Name Role Phone KESHAWN SHERMAN PCP [...] PART A Aug 20, 2011 PART A [id number] [phone] GUILLERMOMARGARET PATIENT MEDICARE (WNR) MEDICARE (M) PART B Aug 20, 2011 PART B [id number] [phone] GUILLERMOMARGARET PATIENT MEDICARE (WNR) MEDICARE (M) PART A Aug 20, 2011 PART A [id number] [phone] GUILLERMOMARGARET PATIENT MEDICARE (WNR) MEDICARE (M) PART B Aug 20, 2011 PART B [id number] [phone] MARGARET LI PATIENT Selected Encounter This section includes the information [facility] record at [facility] for [facility]counter. Date/Time Encounter Type Encounter Description Reason Provider Source Jan 18, 2020 03:54 PM Outpatient Encounter OPTOMETRY UNIQUE [place] IHE Encounter Template Text not used by [facility] Assessments - Encounter Diagnoses No Data Provided for This Section Plan of Treatment: Future Appointments (+ 6 months) and Future Tests (+/- 45 day s) The Plan of Treatment section includes future care activities for the patient fr om all [facility]. This section includes future appointments and fu ture orders which are active, pending or scheduled. Future Appointments This section includes appointments that were scheduled t o occur 6 months from the date of the Encounter, up to a maximum of 20 appointme nts. The data comes from all [facility]. Appointment Date/Time Appointment Type Appointment Facili ty Name Mar 31, 2020 01:00 PM AMBULATORY - NONE [facility] Apr 05, 2020 07:30 AM AMBULATORY - NONE [facility] Apr 05, 2020 08:30 AM AMBULATORY - NONE [facility] Apr 12, 2020 09:30 AM AMBULATORY - MEDICINE [facility] May 16, 2020 11:00 AM AMBULATORY - NONE [facility] May 24, 2020 02:00 PM AMBULATORY - PSYCHIATRY [facility] Active, Pending, and Scheduled Orders [...] the Encounter. The data comes from all [facility]. Test Date/Time Test Type Test Details Facility Name Jan 19, 2020 01:04 PM Consult Order [facility]-OPT OMETRY Cons Activities [facility] Surgical Procedures: All associated to the [...] Encounter took place. Date/Time Current Smoking Status [facility] Facility Nov 03, 2018 09:51 AM VA-TOBACCO NEVER USED UNIQUE [place] Tobacco Use History This section includes a history of the smoking, or tobacco -related health factors, that were collected on or before the date of the Encoun ter. The data comes from the [place] facility where the Encounter took place. Date/Time Smoking Status/Tobacco Use Comment Facil ity Nov 03, 2018 09:51 AM VA-TOBACCO NEVER [...] PM V16 LIFETIME NON-TOBACCO USER [place] Dec 27, 2014 04:28 PM V16 TOBACCO USE SCREEN [place] Dec 29, 2013 03:57 PM V16 LIFETIME NON-TOBACCO USER [place] Dec 29, 2013 03:57 PM V16 TOBACCO USE SCREEN [place] Jun 24, 2012 12:25 PM V16 LIFETIME NON-TOBACCO USER [place] Jun 24, 2012 12:25 PM V16 TOBACCO USE SCREEN [place] Dec 18, 2010 01:24 PM V16 LIFETIME NON-TOBACCO USER [place] Dec 18, 2010 01:24 PM V16 TOBACCO USE SCREEN [place] Nov 30, 2009 01:24 PM V16 LIFETIME NON-TOBACCO USER [place] Nov 30, 2009 01:24 PM V16 TOBACCO USE SCREEN [place] Nov 25, 2008 01:22 PM V16 LIFETIME [...] CESSATION > 12 MONTHS MARIA DE JESUS [place] Sep 29, 2006 01:44 PM V16 [...] adverse reactions to drug (diso rder) UNIQUE [place] Medications: VA dispensed (-15 months) and Non-VA Documented (Obtained Outside A) Section Date Range: 1) prescriptions processed by a [facility] pharmacy in the last 15 m [facility], and 2) all medications recorded in [...] FOR BLOOD PRESSURE 90 Sep 24, 2020 [id number] Apr 07, 2020 V KESHAWN VAUGHN [facility] ATENOLOL 50MG/CHLORTHALIDONE 25MG TAB Discontinued TA KE 1 TABLET BY MOUTH EVERY MORNING FOR BLOOD PRESSURE 90 Oct 17, 2019 [id number] Jul 26, 2019 V KESHAWN VAUGHN [facility] ATORVASTATIN CA 80MG TAB Active TAKE ONE-HALF T ABLET BY MOUTH AT BEDTIME FOR CHOLESTEROL - DO NOT TAKE WITH GRAPEFRUIT JUICE 45 Apr 11, 2021 [id number] Apr 10, 2020 KESHAWN SHERMAN [facility] ATORVASTATIN CA 80MG TAB Discontinued TAKE ONE-HALF T ABLET BY MOUTH AT BEDTIME FOR CHOLESTEROL - DO NOT TAKE WITH GRAPEFRUIT JUICE 45 Dec 23, 2019 [id number] Oct 14, 2019 KESHAWN SHERMAN [facility] CARBOXYMETHYLCELLULOSE NA 0.5% SOLN,OPH INSTILL ONE DROP IN EACH EYE FOUR TIMES DAILY 15 Feb 10, 2020 [id number] Feb 09, 2019 MAGEN [facility]ONA [facility] CARBOXYMETHYLCELLULOSE NA 1% GEL,OPH INS TILL ONE DROP TO EACH EYE TWICE A DAY 15 Feb 10, 2020 [id number] Feb 09, 2019 MAGEN CORONA [facility] CIPROFLOXACIN HCL 500MG TAB Active TAKE ONE TAB LET BY MOUTH TWICE A DAY - ANTIBIOTIC - TAKE UNTIL GONE *TAKE WITH FOOD AND AVOID TAKING WITH DAIRY OR PRODUCTS CONTAINING ALUMINUM, IRON, CALCIUM, OR MAGNESIUM* 14 J 2019 [id number] Apr 12, 2020 ALEXANDRA REYES [facility] FAMOTIDINE 40MG TAB Active TAKE ONE TABLET BY M OUTH ONCE DAILY FOR STOMACH/REFLUX 30 Apr 12, 2021 [id number] Apr 11, 2020 KESHAWN SHERMAN [facility] FAMOTIDINE 40MG TAB Discontinued TAKE ONE TABLET BY M OUTH ONCE DAILY FOR STOMACH/REFLUX 90 Sep 24, 2020 [id number] Dec 29, 2019 KESHAWN SHERMAN [facility] FLUTICASONE PROPIONATE 50MCG/SPRAY SOLN,NASAL,16GM Active USE 2 SPRAYS IN NOSE TWICE A DAY SHAKE GENTLY BEFORE USE 3 Apr 11, 2021 [id number] J 2019 [facility] FLUTICASONE PROPIONATE 50MCG/SPRAY SOLN,NASAL,16GM Discontin ued USE 2 SPRAYS IN NOSE TWICE A DAY SHAKE GENTLY BEFORE USE Dec 23, 2019 [id number] Jul 26, 2019 KESHAWN SHERMANFAVIAN [facility] IBUPROFEN 600MG TAB Non- [facility] TAKE ONE TABLET BY MOUTH THREE TIMES DAILY WITH MEALS NEEDED Non-VA Documented by: KESHAWN SHERMAN [facility] n[facility] MAGNESIUM OXIDE 420MG TAB Active TAKE ONE TABLE T BY MOUTH TWICE A DAY TAKE WITH FOOD 100 Apr 11, 2021 [id number] Apr 10, 2020 [facility] MAGNESIUM OXIDE 420MG TAB Discontinued TAKE ONE TABLE T BY MOUTH TWICE A DAY TAKE WITH FOOD 100 Jan 14, 2020 [id number] Dec 29, 2019 [facility] OMEPRAZOLE 20MG CAP,EC Active TAKE 1 CAPSULE BY MOUTH ONCE DAILY FOR THE STOMACH 90 Dec 30, 2020 [id number] Apr 07, 2020 [facility] OMEPRAZOLE 20MG CAP,EC Discontinued TAKE 1 CAPSULE BY MOUTH ONCE DAILY FOR THE STOMACH 90 Dec 23, 2019 [id number] Oct 14, 2019 [facility] POTASSIUM CHLORIDE 20MEQ TAB,SA (DISPERSIBLE) Active TAKE ONE TABLET BY MOUTH ONCE DAILY WITH FOOD 90 Dec 30, 2020 [id number] Apr 19, 2020 HAMLET SHERMAN [facility] POTASSIUM CHLORIDE 20MEQ TAB,SA (DISPERSIBLE) Discontinued TAKE ONE TABLET BY MOUTH ONCE DAILY WITH FOOD 90 Dec 23, 2019 [id number] Nov 11, 2019 KESHAWN JOHNSON [facility] RANITIDINE HCL 150MG TAB Discontinued TAKE TWO TABLET S BY MOUTH AT BEDTIME FOR STOMACH 180 Dec 23, 2019 [id number] Jul 26, 2019 KESHAWN SHERMAN [place] VENLAFAXINE HCL 37.5MG 24HR CAP,SA Active TAKE 3 CAPSULES BY MOUTH EVERY MORNING FOR MOOD 270 Apr 08, 2021 [id number] Apr 07, 2020 KENA RAGSDALE [facility] VENLAFAXINE HCL 37.5MG 24HR CAP,SA Discontinued TAKE 3 CAPSULES BY MOUTH EVERY MORNING FOR MOOD 270 Jun 01, 2020 [id number] Dec 29, 2019 KENA RASGDALE [place] VENLAFAXINE HCL 75MG 24HR CAP,SA Discontinued TAKE ON E CAPSULE BY MOUTH EVERY MORNING FOR MOOD 90 Apr 13, 2020 [id number] Apr 13, 2019 KESHAWN SHERMAN [facility] Problems (Conditions): All historical and current [...] BARAJAS Chronic kidney disease stage 3 Active [id number] KESHAWN SHERMAN Corneal epithelial dystrophy Active 740862950 [facility] [place] [facility] Depression Active 63810222 KESHAWN SHERMAN Gastroesophageal reflux disease (SNOMED CT 133739896) Active [id number] Nov 30, 2009 Entered By: FRANCO HERNANDEZ Comment: hiatal herniaFe2009 Entered By: FRANCO HERNANDEZ Comment: schiatzski ringFeb 2010 Entered By: FRANCO HERNANDEZ Comment: omeprazole and Zantac.Jun 24, 2012 Entered By: FRANCO HERNANDEZ Comment: GERD KESHAWN SHERMAN H/O: surgery Active [id number] Aug 21, 2012 Entered By: FRANCO HERNANDEZ [...] HERNANDEZ History of polyp of colon Active 696506555 February 24, 2009 Entered By: FRANCO HERNANDEZ Comment: next colonoscopy 2008 Entered By: FRANCO HERNANDEZ Comment: tubulovilousNov 2011 Entered By: FRANCO HERNANDEZ Comment: AUG 20, 2012@14:08:51 Colonoscopy :Diverticulosis Aug 21, 2012 Entered By: FRANCO HERNANDEZ Comment: Repeat of Colonoscopy in 5 years 2017 Entered By: KESHAWN SHERMAN Comment: he refuses repeat colonoscopy KESHAWN SHERMAN Hyperlipidemia Active 48781493 KESHAWN SHERMAN Hypertension Active 30117101 KESHAWN SHERMAN Hypotonic bladder Active 514171067 Dec 28, 2014 Entered By: KESHAWN SHERMAN Comment: Inability to void, was seen March 2013 with catheter placedDec 28, 2014 Entered By: KESHAWN SHERMAN Comment: Now has permanent suprapubic catheterDec 28, 2014 Entered By: KESHAWN SHERMAN Comment: D/c terazosin KESHAWN SHERMAN Impaired glucose tolerance Active 9028992 Dec 31, 2013 Entered By: KESHAWN SHERMAN Comment: A1c 5.9% Dec Entered By: KESHAWN SHERMAN Comment: 5.9% December Entered By: KESHAWN SHERMAN Comment: A1c 5.9% December Entered By: KESHAWN SHERMAN Comment: a1c 6.3% December 2018 KESHAWN SHERMAN Lumbago Active 797731522 KESHAWN SHERMAN Monoclonal gammopathy of uncertain significance Active 697661851 KESHAWN SHERMAN Obesity Active 278.00 Nov 27, [...] Entered By: FRANCO HERNANDEZ Comment: on effexor FLSTEPHEN RASCON Diverticulosis Inactive 562.10 Dec 25, 2017 February [...] PAIN Inactive 724.2 Dec 25, 2017 PROV ADRIÁNDAJA SALVADOR Noncompliance, Medication Regimen (ICD-9-CM V15.81) Inactive V1 5.81 Dec 25, 2017 STEPHEN BARAJAS Radiology Reports: +/- 30 days of the encounter No Data Provided for This Section Pathology Reports: +/- 30 days of the encounter No Data Provided for This Section Encounter Notes: All associated encounter notes This section contains the clinical notes associated to the Encounter. Date/Time Encounter Note(s) Provider Source Jan 18, 2020 03:54 PM ADMINISTRATIVE NOTE: LOCAL TITLE: ADMINISTRATIVE NOTE STANDARD TITLE: ADMINISTRATIVE NOTE DATE OF NOTE: JAN 18, 2020@15:54 ENTRY DATE: JAN 18, 2020@15:54:56 AUTHOR: FABIEN FRENCH EXP COSIGNER: URGENCY: STATUS: COMPLETED PATIENT NAME: MARGARET LI SSN: [id number] FUTURE APPOINTMENTS: Jan@13:00 JOP TARIQ PSYCH MD 1 Mar@12:00 [facility] NON FASTING Mar@13:30 [facility] TM 1 PATIENT'S HOME PHONE: CALL TAKEN BY: Fabien French REASON FOR CALL: Please call patient about replacing broken glasses /marilyn/ FABIEN FRENCH [employer]VEN[employer] INTEGRITY ANALYST-[employer] Signed: 01/18/2020 15:55 Receipt Acknowledged By: 01/18/2020 16:19 /marilyn/ MELIA RIVER LPN PRIMARY CARE LICENSED PRACTICAL NURSE-FABIEN DENG [facility]
--- OUTSIDE RECORDS SUMMARY | 2020-04-30 08:15 | XMS REPORT | Encounter Summary ---
Author Author Department of [facility] MARGARET pereira Department of [facility] Address [address] [place] [address] Phone Unavailable Care Team Providers Care In Home Tutor Name Role Phone KESHAWN SHERMAN PCP Unavailable [...] PART A Aug 20, 2011 PART A [id number] [phone] GUILLERMOMARGARET PATIENT MEDICARE (WNR) MEDICARE (M) PART B Aug 20, 2011 PART B [id number] [phone] GUILLERMOMARGARET PATIENT MEDICARE (WNR) MEDICARE (M) PART A Aug 20, 2011 PART A [id number] [phone] GUILLERMOMARGARET PATIENT MEDICARE (WNR) MEDICARE (M) PART B Aug 20, 2011 PART B [id number] [phone] MARGARET LI PATIENT Selected Encounter This section includes the information on record at [place] for the Encounter. Date/Time Encounter Type Encounter Description Reason Provider Source Dec 29, 2019 01:24 PM Outpatient Encounter TELEPHONE/ANCILLARY [facility] [place] [facility] Encounter Template Text not used by [facility] Assessments - Encounter Diagnoses No Data Provided for This Section Plan of Treatment: Future Appointments (+ 6 months) and Future Tests (+/- 45 day s) The Plan of Treatment section includes future care activities for the patient fr om all [facility]. This section includes future appointments and fu ture orders which are active, pending or scheduled. Future Appointments This section includes appointments that were scheduled t o occur 6 months from the date of the Encounter, up to a maximum of 20 appointme nts. The data comes from all [facility]. Appointment Date/Time Appointment Type Appointment Facili ty Name Jan 11, 2020 11:30 AM AMBULATORY - MEDICINE [facility] Jan 11, 2020 01:00 PM AMBULATORY - MEDICINE [facility] Mar 31, 2020 01:00 PM AMBULATORY - NONE [facility] Apr 05, 2020 07:30 AM AMBULATORY - NONE [facility] Apr 05, 2020 08:30 AM AMBULATORY - NONE [facility] Apr 12, 2020 09:30 AM AMBULATORY - MEDICINE [facility] May 16, 2020 11:00 AM AMBULATORY - NONE [facility] May 24, 2020 02:00 PM AMBULATORY - [...] the Encounter. The data comes from all [facility]. Test Date/Time Test Type Test Details Facility Name Jan 19, 2020 01:04 PM Consult Order [facility] Cons [employer]r's Choice [facility] Surgical Procedures: All associated to [...] and tobacco- related health factors from the [place] facility where the Encounter took place. Current Smoking Status This section includes the most current smoking, or tobacco -related health factor, from the [place] facility where the Encounter took place. Date/Time Current Smoking Status Comment Facility Nov 03, 2018 09:51 AM VA-TOBACCO NEVER USED [place] [facility] Tobacco Use History This section includes a history of the smoking, or tobacco -related health factors, that were collected on or before the date of the Encoun ter. The data comes from the [place] facility where the Encounter took place. Date/Time Smoking Status/Tobacco Use Comment Facil ity Nov 03, 2018 09:51 AM VA-TOBACCO NEVER USED [place] [facility] Oct 24, 2017 10:25 AM V16 LIFETIME NON-TOBACCO USER [place] Oct 24, 2017 10:25 AM V16 TOBACCO USE SCREEN [place] Dec 25, 2016 01:31 PM V16 LIFETIME NON-TOBACCO USER [place] Dec 25, 2016 01:31 PM V16 TOBACCO USE SCREEN [place] Jan 03, 2016 08:51 AM V16 LIFETIME NON-TOBACCO USER [place] Jan 03, 2016 08:51 AM V16 TOBACCO USE SCREEN [place] Dec 27, 2014 04:28 PM V16 LIFETIME NON-TOBACCO USER [place] Dec 27, 2014 04:28 PM V16 TOBACCO USE SCREEN [place] Dec 29, 2013 03:57 PM V16 LIFETIME NON-TOBACCO USER [place] Dec 29, 2013 03:57 PM V16 TOBACCO USE SCREEN [place] Jun 24, 2012 12:25 PM V16 LIFETIME NON-TOBACCO USER [place] Jun 24, 2012 12:25 PM V16 TOBACCO USE SCREEN [place] Dec 18, 2010 01:24 PM V16 LIFETIME NON-TOBACCO USER [place] Dec 18, 2010 01:24 PM V16 TOBACCO USE SCREEN [place] Nov 30, 2009 01:24 PM V16 LIFETIME NON-TOBACCO USER [place] Nov 30, 2009 01:24 PM V16 TOBACCO USE SCREEN [place] Nov 25, 2008 01:22 PM V16 LIFETIME NON-TOBACCO USER [place] Nov 25, 2008 01:22 PM V16 TOBACCO USE SCREEN [place] Jan 08, 2008 12:49 PM V16 LIFETIME NON-TOBACCO USER [place] Jan 08, 2008 12:49 PM V16 TOBACCO USE SCREEN [place] Apr 28, 2007 01:53 PM V16 TOBACCO CESSATION >7 YEARS [place] Apr 28, 2007 01:53 PM V16 TOBACCO USE SCREEN [facility] [place] Sep 29, 2006 01:44 PM V16 TOBACCO CESSATION > 12 MONTHS MARIA DE JESUS [place] Sep 29, 2006 01:44 PM V16 TOBACCO USE SCREEN [facility] [place] May 21, 2001 11:04 AM LIFETIME NON-TOBACCO USER MARY STRONG Nov 20, 2000 01:09 PM LIFETIME NON-TOBACCO USER MARY STRONG Advance Directives: All historical and current No Data Provided for This Section Allergies and Adverse Reactions (ADRs): All historical and current Section Date Range: From patient's date of to the date document was create d. This section includes Allergies and Adverse Reactions (ADR s) on record with [facility] for the patient. The data comes from a ll [place] treatment facilities. It does not list Allergies/ADRs [...] [facility] pharmacy in the last 15 m [facility], and 2) all medications recorded in the [place] medical record as "non-VA medic ations". Pharmacy terms refer to [place] pharmacy's work on prescriptions. [facility] patient s are advised to take their medications as instructed by their health care team. The data comes from all [place] treatment facilities. Glossary of Pharmacy Terms:Active = A prescription that can be filled at the local [place] pharmacy.Active: On Hold = An active prescription that will not be filled until pharmacy resolves the issue.Active: Susp = An active prescription that is not scheduled to be filled yet.Clinic Order = A medication received during a visit to a [place] clinic or emergency department (currently not available).Discontinued [...] may be a prescription from either the [place] or other providers that was filled outside the [place]. Or, it may be an over the [...] FOR BLOOD PRESSURE 90 Sep 24, 2020 [id number] Apr 07, 2020 V KESHAWN VAUGHN [facility] ATENOLOL 50MG/CHLORTHALIDONE 25MG TAB Discontinued TA KE 1 TABLET BY MOUTH EVERY MORNING FOR BLOOD PRESSURE 90 Oct 17, 2019 [id number] Jul 26, 2019 V KESHAWN VAU[facility]N [facility] ATORVASTATIN CA 80MG TAB Active TAKE ONE-HALF T ABLET BY MOUTH AT BEDTIME FOR CHOLESTEROL - DO NOT TAKE WITH GRAPEFRUIT JUICE 45 Apr 11, 2021 [id number] Apr 10, 2020 KESHAWN SHERMAN [facility] ATORVASTATIN CA 80MG TAB Discontinued TAKE ONE-HALF T ABLET BY MOUTH AT BEDTIME FOR CHOLESTEROL - DO NOT TAKE WITH GRAPEFRUIT JUICE 45 Dec 23, 2019 [id number] Oct 14, 2019 KESHAWN SHERMAN [facility] CARBOXYMETHYLCELLULOSE NA 0.5% SOLN,OPH INSTILL ONE DROP IN EACH EYE FOUR TIMES DAILY 15 Feb 10, 2020 [id number] Feb 09, 2019 MAGEN [facility] [place] [facility] CARBOXYMETHYLCELLULOSE NA 1% GEL,OPH INS TILL ONE DROP TO EACH EYE TWICE A DAY 15 Feb 10, 2020 [id number] Feb 09, 2019 [facility] [place] [facility] CIPROFLOXACIN HCL 500MG TAB Active TAKE ONE TAB LET BY MOUTH TWICE A DAY - ANTIBIOTIC - TAKE UNTIL GONE *TAKE WITH FOOD AND AVOID TAKING WITH DAIRY OR PRODUCTS CONTAINING ALUMINUM, IRON, CALCIUM, OR MAGNESIUM* 14 J 2019 [id number] Apr 12, 2020 ALEXANDRA REYES [facility] FAMOTIDINE 40MG TAB Active TAKE ONE TABLET BY M OUTH ONCE DAILY FOR STOMACH/REFLUX 30 Apr 12, 2021 [id number] Apr 11, 2020 KESHAWN SHERMAN [facility] FAMOTIDINE 40MG TAB Discontinued TAKE ONE TABLET BY M LADARIUS ONCE DAILY FOR STOMACH/REFLUX 90 Sep 24, 2020 [id number] Dec 29, 2019 KESHAWN SHERMANFAVIAN [facility] FLUTICASONE PROPIONATE 50MCG/SPRAY SOLN,NASAL,16GM Active USE 2 SPRAYS IN NOSE TWICE A DAY SHAKE GENTLY BEFORE USE Apr 11, 2021 [id number] J 2019 [facility] FLUTICASONE PROPIONATE 50MCG/SPRAY SOLN,NASAL,16GM Discontin ued USE 2 SPRAYS IN NOSE TWICE A DAY SHAKE GENTLY BEFORE USE Dec 23, 2019 [id number] Jul 26, 2019 [facility] IBUPROF[facility] 600MG TAB Non- [facility] TAKE ONE TABLET BY MOUTH THREE TIMES DAILY WITH MEALS NEEDED Non-VA Documented by: KESHAWN SHERMAN Docume nted at: [facility] [place] MAGNESIUM OXIDE 420MG TAB Active TAKE ONE TABLE T BY MOUTH TWICE A DAY TAKE WITH FOOD 100 Apr 11, 2021 [id number] Apr 10, 2020 KESHAWN SHERMAN [facility] MAGNESIUM OXIDE 420MG TAB Discontinued TAKE ONE TABLE T BY MOUTH TWICE A DAY TAKE WITH FOOD 100 Jan 14, 2020 [id number] Dec 29, 2019 [facility] OMEPRAZ[facility]LE 20MG CAP,EC Active TAKE 1 CAPSULE BY MOUTH ONCE DAILY FOR THE STOMACH 90 Dec 30, 2020 [id number] Apr 07, 2020 KESHAWN SHERMAN [facility] OMEPRAZOLE 20MG CAP,EC Discontinued TAKE 1 CAPSULE BY MOUTH ONCE DAILY FOR THE STOMACH 90 Dec 23, 2019 [id number] Oct 14, 2019 [facility] POTASSIUM CHLORIDE 20MEQ TAB,SA (DISPERSIBLE) Active TAKE ONE TABLET BY MOUTH ONCE DAILY WITH FOOD 90 Dec 30, 2020 [id number] Apr 19, 2020 HAMLET SHERMAN [facility] POTASSIUM CHLORIDE 20MEQ TAB,SA (DISPERSIBLE) Discontinued TAKE ONE TABLET BY MOUTH ONCE DAILY WITH FOOD 90 Dec 23, 2019 [id number] Nov 11, 2019 KESHAWN JOHNSON [facility] RANITIDINE HCL 150MG TAB Discontinued TAKE TWO TABLET S BY MOUTH AT BEDTIME FOR STOMACH 180 Dec 23, 2019 [id number] Jul 26, 2019 KESHAWN SHERMAN [place] VENLAFAXINE HCL 37.5MG 24HR CAP,SA Active TAKE 3 CAPSULES BY MOUTH EVERY MORNING FOR MOOD 270 Apr 08, 2021 [id number] Apr 07, 2020 KENA [facility] [facility] VENLAFAXINE HCL 37.5MG 24HR CAP,SA Discontinued TAKE 3 CAPSULES BY MOUTH EVERY MORNING FOR MOOD 270 Jun 01, 2020 [id number] Dec 29, 2019 [facility] VENLAFAXINE HCL 75MG 24HR CAP,SA Discontinued TAKE ON E CAPSULE BY MOUTH EVERY MORNING FOR MOOD 90 Apr 13, 2020 [id number] Apr 13, 2019 KESHAWN SHERMAN [facility] Problems (Conditions): All historical and current Section Date Range: From patient's date of to the date document was create d. This section includes a list of Problems (Conditions) know n to [facility] for the patient. It includes both active and inacti ve problems (conditions). The data comes from all [place] treatment facilities. 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 [facility] [place] [facility] Depression Active 52326973 KESHAWN SHERMAN [place] Gastroesophageal reflux disease (SNOMED CT 354187500) Active 0104 88209 Nov 30, 2009 Entered By: FRANCO HERNANDEZ Comment: hiatal herniaFeb 2009 Entered By: FRANCO HERNANDEZ Comment: schiatzski ringFeb 2010 Entered By: FRANCO HRENANDEZ Comment: omeprazole and Zantac.Jun 24, 2012 Entered By: FRANCO HERNANDEZ Comment: GERD KESHAWN SHERMAN H/O: surgery Active [id number] Aug 21, 2012 Entered By: FRANCO HERNANDEZ [...] HERNANDEZ History of polyp of colon Active 241815294 February 24, 2009 Entered By: FRANCO HERNANDEZ Comment: next colonoscopy 2008 Entered By: FRANCO HERNANDEZ Comment: tubulovilousNov 2011 Entered By: FRANCO HERNANDEZ Comment: AUG 20, 2012@14:08:51 Colonoscopy :Diverticulosis Aug 21, 2012 Entered By: FRANCO HERNANDEZ Comment: Repeat of Colonoscopy in 5 years 2017 Entered By: KESHAWN SHERMAN Comment: he refuses repeat colonoscopy KESHAWN SHERMAN Hyperlipidemia Active 06246485 KESHAWN SHERMAN Hypertension Active 46549677 KESHAWN SHERMAN Hypotonic bladder Active 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 Dec 28, 2014 Entered By: KESHAWN SHERMAN Comment: Inability to void, was seen March 2013 with catheter placedDec 28, 2014 Entered By: KESHAWN SHERMAN Comment: Now has permanent suprapubic catheterDec 28, 2014 Entered By: KESHAWN SHERMAN Comment: D/c terazosin KESHAWN SHERMAN Impaired glucose tolerance Active 6674721 Dec 31, 2013 Entered By: KESHAWN SHERMAN Comment: A1c 5.9% Dec Entered By: KESHAWN SHERMAN Comment: 5.9% December Entered By: KESHAWN SHERMAN Comment: A1c 5.9% December Entered By: KESHAWN SHERMAN Comment: a1c 6.3% December 2018 KESHAWN SHERMAN Lumbago Active 152424070 KESHAWN SHERMAN Monoclonal gammopathy of uncertain significance Active 709979401 KESHAWN SHERMAN Obesity Active 278.00 Nov 27, [...] BACK PAIN Inactive 724.2 Dec 25, 2017 MARY JANE DAJA SAMPSON Alonso [place] Noncompliance, Medication Regimen (ICD-9-CM V15.81) Inactive [...] Encounter. 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
--- OUTSIDE RECORDS SUMMARY | 2020-04-30 08:15 | XMS REPORT | Encounter Summary ---
Author Author Department of [facility] MARGARET pereira Department of [facility] Address [address] [place] [address] Phone Unavailable Care Team Providers Care Intel Analyst Name Role Phone KESHAWN SHERMAN PCP Unavailable [...] PART A Aug 20, 2011 PART A [id number] [phone] GUILLERMOMARGARET PATIENT MEDICARE (WNR) MEDICARE (M) PART B Aug 20, 2011 PART B [id number] [phone] GUILLERMOMARGARET PATIENT MEDICARE (WNR) MEDICARE (M) PART A Aug 20, 2011 PART A [id number] [phone] GUILLERMOMARGARET PATIENT MEDICARE (WNR) MEDICARE (M) PART B Aug 20, 2011 PART B [id number] [phone] MARGARET LI PATIENT Selected Encounter This section includes the information on record at [place] for the Encounter. Date/Time Encounter Type Encounter Description Reason Provider Source Feb 04, 2020 01:34 PM Outpatient Encounter [facility] I[facility] Encounter Template Text not used by [facility] Assessments - Encounter Diagnoses No Data Provided for This Section Plan of Treatment: Future Appointments (+ 6 months) and Future Tests (+/- 45 day s) The Plan of Treatment section includes future care activities for the patient fr om all [facility]. This section includes future appointments and fu ture orders which are active, pending or scheduled. Future Appointments This section includes appointments that were scheduled t o occur 6 months from the date of the Encounter, up to a maximum of 20 appointme nts. The data comes from all [facility]. Appointment Date/Time Appointment Type Appointment Facili ty Name Mar 31, 2020 01:00 PM AMBULATORY - NONE [facility] Apr 05, 2020 07:30 AM AMBULATORY - NONE [facility] Apr 05, 2020 08:30 AM AMBULATORY - NONE [facility] Apr 12, 2020 09:30 AM AMBULATORY - MEDICINE [facility] May 16, 2020 11:00 AM AMBULATORY - NONE [facility] May 24, 2020 02:00 PM AMBULATORY - PSYCHIATRY [facility] Active, Pending, and Scheduled Orders [...] the Encounter. The data comes from all [facility]. Test Date/Time Test Type Test Details Facility Name Jan 19, 2020 01:04 PM Consult Order [facility] Cons Licensed Occupational Therapist's Choice [facility] Surgical Procedures: All associated to the [...] and tobacco- related health factors from the AL facility where the Encounter took place. Current Smoking Status This section includes the most current smoking, or tobacco -related health factor, from the AL facility where the Encounter took place. Date/Time Current Smoking Status [facility] Facility Nov 03, 2018 09:51 AM AL-TOBACCO NEVER USED UNIQUE [facility] Tobacco Use History This section includes a history of the smoking, or tobacco -related health factors, that were collected on or before the date of the Encoun ter. The data comes from the [place] facility where the Encounter took place. Date/Time Smoking Status/Tobacco Use Comment Facil ity Nov 03, 2018 09:51 AM VA-TOBACCO NEVER USED UNIQUE [place] R Oct 24, 2017 10:25 AM V16 [...] PM V16 LIFETIME NON-TOBACCO USER [place] Dec 27, 2014 04:28 PM V16 TOBACCO USE SCREEN [place] Dec 29, 2013 03:57 PM V16 LIFETIME NON-TOBACCO USER [place] Dec 29, 2013 03:57 PM V16 TOBACCO USE SCREEN [place] Jun 24, 2012 12:25 PM V16 LIFETIME NON-TOBACCO USER [place] Jun 24, 2012 12:25 PM V16 TOBACCO USE SCREEN [place] Dec 18, 2010 01:24 PM V16 LIFETIME NON-TOBACCO USER [place] Dec 18, 2010 01:24 PM V16 TOBACCO USE SCREEN [place] Nov 30, 2009 01:24 PM V16 LIFETIME NON-TOBACCO USER [place] Nov 30, 2009 01:24 PM V16 TOBACCO USE SCREEN [place] Nov 25, 2008 01:22 PM V16 LIFETIME NON-TOBACCO USER [place] Nov 25, 2008 01:22 PM V16 TOBACCO USE [place]CREEN [place] Jan 08, 2008 12:49 PM V16 LIFETIME NON-TOBACCO USER [place] Jan 08, 2008 12:49 PM V16 TOBACCO USE SCREEN [place] Apr 28, 2007 01:53 PM V16 TOBACCO CESSATION >7 YEARS [place] Apr 28, 2007 01:53 PM V16 [...] patient. The data comes from a ll [place] treatment facilities. It does not list Allergies/ADRs [...] pharmacy in the last 15 m [facility], and 2) all medications recorded in the VA medical record as "non-VA medic ations". Pharmacy terms refer to VA pharmacy's work on prescriptions. VA patient s are advised to take their medications as instructed by their health care team. The data comes from all [place] treatment facilities. Glossary of Pharmacy Terms:Active = A prescription that can be filled at the local [place] pharmacy.Active: On Hold = An active prescription that will not be filled until pharmacy resolves the issue.Active: Susp = An active prescription that is not scheduled to be filled yet.Clinic Order = A medication received during a visit to a [place] clinic or emergency department (currently not available).Discontinued [...] FOR BLOOD PRESSURE 90 Sep 24, 2020 [id number] Apr 07, 2020 V KESHAWN VAUGHN [facility] ATENOLOL 50MG/CHLORTHALIDONE 25MG TAB Discontinued TA KE 1 TABLET BY MOUTH EVERY MORNING FOR BLOOD PRESSURE 90 Oct 17, 2019 [id number] Jul 26, 2019 V KESHAWN VAUGHN [facility] ATORVASTATIN CA 80MG TAB Active TAKE ONE-HALF T ABLET BY MOUTH AT BEDTIME FOR CHOLESTEROL - DO NOT TAKE WITH GRAPEFRUIT JUICE 45 Apr 11, 2021 [id number] Apr 10, 2020 KESHAWN SHERMAN [facility] ATORVASTATIN CA 80MG TAB Discontinued TAKE ONE-HALF T ABLET BY MOUTH AT BEDTIME FOR CHOLESTEROL - DO NOT TAKE WITH GRAPEFRUIT JUICE 45 Dec 23, 2019 [id number] Oct 14, 2019 KESHAWN SHERMAN [facility] CARBOXYMETHYLCELLULOSE NA 0.5% SOLN,OPH INSTILL ONE DROP IN EACH EYE FOUR TIMES DAILY Feb 10, 2020 [id number] Feb 09, 2019 MAGEN CORONA [facility] CARBOXYMETHYLCELLULOSE NA 1% GEL,OPH INS TILL ONE DROP TO EACH EYE TWICE A DAY 15 Feb 10, 2020 [id number] Feb 09, 2019 MAGEN CORONA [facility] CIPROFLOXACIN HCL 500MG TAB Active TAKE ONE TAB LET BY MOUTH TWICE A DAY - ANTIBIOTIC - TAKE UNTIL GONE *TAKE WITH FOOD AND AVOID TAKING WITH DAIRY OR PRODUCTS CONTAINING ALUMINUM, IRON, CALCIUM, OR MAGNESIUM* 14 J 2019 [id number] Apr 12, 2020 ALEXANDRA REYES [facility] FAMOTIDINE 40MG TAB Active TAKE ONE TABLET BY M OUTH ONCE DAILY FOR STOMACH/REFLUX 30 Apr 12, 2021 [id number] Apr 11, 2020 KESHAWN SHERMAN [facility] FAMOTIDINE 40MG TAB Discontinued TAKE ONE TABLET BY M OUTH ONCE DAILY FOR STOMACH/REFLUX 90 Sep 24, 2020 [id number] Dec 29, 2019 KESHAWN SHERMAN [facility] FLUTICASONE PROPIONATE 50MCG/SPRAY SOLN,NASAL,16GM Active USE 2 SPRAYS IN NOSE TWICE A DAY SHAKE GENTLY BEFORE USE Apr 11, 2021 [id number] J 2019 KESHAWN SHERMAN [facility] FLUTICASONE PROPIONATE 50MCG/SPRAY SOLN,NASAL,16GM Discontin ued USE 2 SPRAYS IN NOSE TWICE A DAY SHAKE GENTLY BEFORE USE Dec 23, 2019 [id number] Jul 26, 2019 KESHAWN SHERMAN [facility] IBUPROFEN 600MG TAB Non- VA TAKE ONE TABLET BY MOUTH THREE TIMES DAILY WITH MEALS NEEDED Non-VA Documented by: KESHAWN SHERMAN [facility] MAGNESIUM OXIDE 420MG TAB Active TAKE ONE TABLE T BY MOUTH TWICE A DAY TAKE WITH FOOD 100 Apr 11, 2021 [id number] Apr 10, 2020 [facility] MAGNES[facility]XIDE 420MG TAB Discontinued TAKE ONE TABLE T BY MOUTH TWICE A DAY TAKE WITH FOOD 100 Jan 14, 2020 [id number] Dec 29, 2019 KESHAWN SHERMAN [facility] OMEPRAZOLE 20MG CAP,EC Active TAKE 1 CAPSULE BY MOUTH ONCE DAILY FOR THE STOMACH 90 Dec 30, 2020 [id number] Apr 07, 2020 [facility] OMEPRAZ[facility]LE 20MG CAP,EC Discontinued TAKE 1 CAPSULE BY MOUTH ONCE DAILY FOR THE STOMACH 90 Dec 23, 2019 [id number] Oct 14, 2019 KESHAWN SHERMAN [facility] POTASSIUM CHLORIDE 20MEQ TAB,SA (DISPERSIBLE) Active TAKE ONE TABLET BY MOUTH ONCE DAILY WITH FOOD 90 Dec 30, 2020 [id number] Apr 19, 2020 HAMLET SHERMAN [facility] POTASSIUM CHLORIDE 20MEQ TAB,SA (DISPERSIBLE) Discontinued TAKE ONE TABLET BY MOUTH ONCE DAILY WITH FOOD 90 Dec 23, 2019 [id number] Nov 11, 2019 KESHAWN JOHNSON [facility] RANITIDINE HCL 150MG TAB Discontinued TAKE TWO TABLET S BY MOUTH AT BEDTIME FOR STOMACH 180 Dec 23, 2019 [id number] Jul 26, 2019 KESHAWN SHERMAN [place] VENLAFAXINE HCL 37.5MG 24HR CAP,SA Active TAKE 3 CAPSULES BY MOUTH EVERY MORNING FOR MOOD 270 Apr 08, 2021 [id number] Apr 07, 2020 KENA [place] [facility] VENLAFAXINE HCL 37.5MG 24HR CAP,SA Discontinued TAKE 3 CAPSULES BY MOUTH EVERY MORNING FOR MOOD 270 Jun 01, 2020 [id number] Dec 29, 2019 KENA [facility] VENLAFAXINE HCL 75MG 24HR CAP,SA Discontinued TAKE ON E CAPSULE BY MOUTH EVERY MORNING FOR MOOD 90 Apr 13, 2020 [id number] Apr 13, 2019 KESHAWN SHERMAN [facility] Problems (Conditions): All historical and current Section Date Range: From patient's date of to the date document was create d. This section includes a list of Problems (Conditions) know n to [facility] for the patient. It includes both active and inacti ve problems (conditions). The data comes from all [place] treatment facilities. Problem Status Problem Code Date of Onset Date of Resolution Comm ent(s) Provider Source Allergic rhinitis * (ICD-9-CM 477.9) Active 477.9 [place] Chronic kidney disease stage 3 Active 097503090 KESHAWN SHERMAN [place] Corneal epithelial dystrophy Active 607071469 [facility] Depression Active 30434294 KESHAWN SHERMAN [place] Gastroesophageal reflux disease (SNOMED CT 030231857) Active 2355 [id number] Nov 30, 2009 Entered By: FRANCO HERNANDEZ Comment: hiatal herniaFeb 2009 Entered By: FRANCO HERNANDEZ Comment: schiatzski ringFeb 2010 Entered By: FRANCO HERNANDEZ Comment: omeprazole and Zantac.Jun 24, 2012 Entered By: FRANCO HERNANDEZ Comment: GERD KESHAWN SHERMAN H/O: surgery Active [id number] Aug 21, 2012 Entered By: FRANCO HERNANDEZ [...] HERNANDEZ History of polyp of colon Active 983635809 February 24, 2009 Entered By: FRANCO HERNANDEZ Comment: next colonoscopy 2008 Entered By: FRANCO HERNANDEZ Comment: tubulovilousNov 2011 Entered By: FRANCO HERNANDEZ Comment: AUG 20, 2012@14:08:51 Colonoscopy :Diverticulosis Aug 21, 2012 Entered By: FRANCO HERNANDEZ Comment: Repeat of Colonoscopy in 5 years 2017 Entered By: KESHAWN SHERMAN Comment: he refuses repeat colonoscopy KESHAWN SHERMAN Hyperlipidemia Active 00622007 KESHAWN SHERMAN Hypertension Active 32957833 KESHAWN SHERMAN Hypotonic bladder Active 748564069 Dec 28, 2014 Entered By: KESHAWN SHERMAN Comment: Inability to void, was seen March 2013 with catheter placedDec 28, 2014 Entered By: KESHAWN SHERMAN Comment: Now has permanent suprapubic catheterDec 28, 2014 Entered By: KESHAWN SHERMAN Comment: D/c terazosin KESHAWN SHERMAN Impaired glucose tolerance Active 4903692 Dec 31, 2013 Entered By: KESHAWN SHERMAN Comment: A1c 5.9% Dec Entered By: KESHAWN SHERMAN Comment: 5.9% December Entered By: KESHAWN SHERMAN Comment: A1c 5.9% December Entered By: KESHAWN SHERMAN Comment: a1c 6.3% December 2018 KESHAWN SHERMAN Lumbago Active 722856983 KESHAWN SHERMAN Monoclonal gammopathy of uncertain significance Active 268331582 KESHAWN SHERMAN Obesity Active 278.00 Nov 27, [...] the Encounter. Date/Time Encounter Note(s) Provider Source Feb 04, 2020 01:35 PM ADMINISTRATIVE NOTE: LOCAL TITLE: ADMINISTRATIVE NOTE STANDARD TITLE: ADMINISTRATIVE NOTE DATE OF NOTE: FEB 04, 2020@13:35 ENTRY DATE: FEB 04, 2020@13:35:48 AUTHOR: NELY VASQUES EXP COSIGNER: URGENCY: STATUS: COMPLETED ADMINISTRATIVE NOTE Has ADDENDA PATIENT NAME: MARGARET LI SSN: [id number] FUTURE APPOINTMENTS: Jan@13:00 JOP PSLiliane PSYCH MD 1 Mar@12:00 [facility] NON FASTING Mar@13:30 [facility] PC TM 1 PATIENT'S HOME PHONE: CALL TAKEN BY: TORRI REASON FOR CALL: PLEASE RETURN CALL TO PT ABOUT ANOTHER PAIR OF BROKEN GLASSES. TAHNKS. /es/ NELY VASQUES [employer] [facility] Signed: 02/04/2020 13:36 Receipt Acknowledged By: * AWAITING SIGNATURE * NERI LIEBERMAN 02/28/2020 ADDENDUM STATUS: COMPLETED Please call patient about broken glasses /es/ FABIEN FRENCH [facility] Signed: 02/28/2020 14:04 Receipt Acknowledged By: * AWAITING SIGNATURE * MELIA CARRILLO DIANA KAY [facility]
--- OUTSIDE RECORDS SUMMARY | 2020-04-30 08:15 | XMS REPORT | Encounter Summary ---
Author Author Department of [facility] MARGARET pereira Department of [facility] Address [address] [place] [address] Phone Unavailable Care Team Providers Care Desktop Publisher Name Role Phone KESHAWN SHERMAN PCP Unavailable [...] PART A Aug 20, 2011 PART A [id number] GUILLERMOMARGARET PATIENT MEDICARE (WNR) MEDICARE (M) PART B Aug 20, 2011 PART B [id number] GUILLERMOMARGARET PATIENT MEDICARE (WNR) MEDICARE (M) PART A Aug 20, 2011 PART A [id number] [phone] GUILLERMOMARGARET PATIENT MEDICARE (WNR) MEDICARE (M) PART B Aug 20, 2011 PART B [id number] [phone] MARGARET LI PATIENT Selected Encounter This section includes the information on record at [place] for the Encounter. Date/Time Encounter Type Encounter Description Reason Provider Source February 29, 2020 12:00 AM Outpatient Encounter [facility] Encounter Template Text not used by [facility] Assessments - Encounter Diagnoses No Data Provided for This Section Plan of Treatment: Future Appointments (+ 6 months) and Future Tests (+/- 45 day s) The Plan of Treatment section includes future care activities for the patient fr om all [facility]. This section includes future appointments and fu ture orders which are active, pending or scheduled. Future Appointments This section includes appointments that were scheduled t o occur 6 months from the date of the Encounter, up to a maximum of 20 appointme nts. The data comes from all [facility]. Appointment Date/Time Appointment Type Appointment Facili ty Name Mar 31, 2020 01:00 PM AMBULATORY - NONE [facility] Apr 05, 2020 07:30 AM AMBULATORY - NONE [facility] Apr 05, 2020 08:30 AM AMBULATORY - NONE [facility] Apr 12, 2020 09:30 AM AMBULATORY - MEDICINE [facility] May 16, 2020 11:00 AM AMBULATORY - NONE [facility] May 24, 2020 02:00 PM AMBULATORY - PSYCHIATRY [facility] Active, Pending, and Scheduled Orders [...] the Encounter. The data comes from all [facility]. Test Date/Time Test Type Test Details Facility Name Jan 19, 2020 01:04 PM Consult Order COMMUNITY CARE-OPT OMETRY Cons Therapist'S Assistant's Choice [facility] Surgical Procedures: All associated to [...] and tobacco- related health factors from the [place] facility where the Encounter took place. Current Smoking Status This section includes the most current smoking, or tobacco -related health factor, from the [place] facility where the Encounter took place. Date/Time Current Smoking Status [facility] Facility Nov 03, 2018 09:51 AM [place]-TOBACCO NEVER USED UNIQUE [place] Tobacco Use History This section includes a history of the smoking, or tobacco -related health factors, that were collected on or before the date of the Encoun ter. The data comes from the [place] facility where the Encounter took place. Date/Time Smoking Status/Tobacco Use Comment Facil ity Nov 03, 2018 09:51 AM [facility]-TOBACCO NEVER USED UNIQUE [facility] Oct 24, 2017 10:25 AM V16 LIFETIME [...] 08:51 AM V16 TOBACCO USE SCREEN [place] [facility] Dec 27, 2014 04:28 PM V16 LIFETIME NON-TOBACCO USER [place] [facility] Dec 27, 2014 04:28 PM V16 TOBACCO USE SCREEN [place] [facility] Dec 29, 2013 03:57 PM V16 LIFETIME NON-TOBACCO USER [place] [facility] Dec 29, 2013 03:57 PM V16 TOBACCO USE SCREEN [place] [facility] Jun 24, 2012 12:25 PM V16 LIFETIME NON-TOBACCO USER [place] [facility] Jun 24, 2012 12:25 PM V16 TOBACCO USE SCREEN [place] [facility] Dec 18, 2010 01:24 PM V16 LIFETIME NON-TOBACCO USER [place] [facility] Dec 18, 2010 01:24 PM V16 TOBACCO USE SCREEN [place] [facility] Nov 30, 2009 01:24 PM V16 LIFETIME NON-TOBACCO USER [place] [facility] Nov 30, 2009 01:24 PM V16 TOBACCO USE SCREEN [place] [facility] Nov 25, 2008 01:22 PM V16 LIFETIME NON-TOBACCO USER [place] [facility] Nov 25, 2008 01:22 PM V16 TOBACCO USE SCREEN [place] [facility] Jan 08, 2008 12:49 PM V16 LIFETIME NON-TOBACCO USER [place] [facility] Jan 08, 2008 12:49 PM V16 TOBACCO USE SCREEN [place] [facility] Apr 28, 2007 01:53 PM V16 TOBACCO CESSATION >7 YEARS [place] [facility] Apr 28, 2007 01:53 PM V16 TOBACCO [...] patient. The data comes from a ll [place] treatment facilities. It does not list Allergies/ADRs [...] VA pharmacy in the last 15 m [facility], and 2) all medications recorded in the VA medical record as "non-VA medic ations". Pharmacy terms refer to VA pharmacy's work on prescriptions. VA patient s are advised to take their medications as instructed by their health care team. The data comes from all [place] treatment facilities. Glossary of Pharmacy Terms:Active = A prescription that can be filled at the local [place] pharmacy.Active: On Hold = An active prescription that will not be filled until pharmacy resolves the issue.Active: Susp = An active prescription that is not scheduled to be filled yet.Clinic Order = A medication received during a visit to a [place] clinic or emergency department (currently not available).Discontinued [...] FOR BLOOD PRESSURE 90 Sep 24, 2020 [id number] Apr 07, 2020 V KESHAWN [facility]AU[facility]N [facility] ATENOLOL 50MG/CHLORTHALIDONE 25MG TAB Discontinued TA KE 1 TABLET BY MOUTH EVERY MORNING FOR BLOOD PRESSURE 90 Oct 17, 2019 [id number] Jul 26, 2019 V KESHAWN [facility] ATORVASTATIN CA 80MG TAB Active TAKE ONE-HALF T ABLET BY MOUTH AT BEDTIME FOR CHOLESTEROL - DO NOT TAKE WITH GRAPEFRUIT JUICE 45 Apr 11, 2021 [id number] Apr 10, 2020 KESHAWN SHERMAN [facility] ATORVASTATIN CA 80MG TAB Discontinued TAKE ONE-HALF T ABLET BY MOUTH AT BEDTIME FOR CHOLESTEROL - DO NOT TAKE WITH GRAPEFRUIT JUICE 45 Dec 23, 2019 [id number] Oct 14, 2019 KESHAWN SHERMAN [facility] CARBOXYMETHYLCELLULOSE NA 0.5% SOLN,OPH INSTILL ONE DROP IN EACH EYE FOUR TIMES DAILY 15 Feb 10, 2020 [id number] Feb 09, 2019 MAGEN [facility] CARBOXYMETHYLCELLULOSE NA 1% GEL,OPH INS TILL ONE DROP TO EACH EYE TWICE A DAY Feb 10, 2020 [id number] Feb 09, 2019 [facility] CIPROFLOXACIN HCL 500MG TAB Active TAKE ONE TAB LET BY MOUTH TWICE A DAY - ANTIBIOTIC - TAKE UNTIL GONE *TAKE WITH FOOD AND AVOID TAKING WITH DAIRY OR PRODUCTS CONTAINING ALUMINUM, IRON, CALCIUM, OR MAGNESIUM* 14 J 2019 [id number] Apr 12, 2020 ALEXANDRA REYES [facility] FAMOTIDINE 40MG TAB Active TAKE ONE TABLET BY M OUTH ONCE DAILY FOR STOMACH/REFLUX 30 Apr 12, 2021 [id number] Apr 11, 2020 KESHAWN SHERMAN [facility] FAMOTIDINE 40MG TAB Discontinued TAKE ONE TABLET BY M OUTH ONCE DAILY FOR STOMACH/REFLUX 90 Sep 24, 2020 [id number] Dec 29, 2019 KESHAWN SHERMAN [facility] FLUTICASONE PROPIONATE 50MCG/SPRAY SOLN,NASAL,16GM Active USE 2 SPRAYS IN NOSE TWICE A DAY SHAKE GENTLY BEFORE USE Apr 11, 2021 [id number] J 2019 [facility] FLUTICASONE PROPIONATE 50MCG/SPRAY SOLN,NASAL,16GM Discontin ued USE 2 SPRAYS IN NOSE TWICE A DAY SHAKE GENTLY BEFORE USE Dec 23, 2019 [id number] Jul 26, 2019 [facility] IBUPROFEN 600MG TAB Non- VA TAKE ONE TABLET BY MOUTH THREE TIMES DAILY WITH MEALS NEEDED Non-VA Documented by: KESHAWN SHERMAN Docume nted at: [facility] O[facility]IDE 420MG TAB Active TAKE ONE TABLE T BY MOUTH TWICE A DAY TAKE WITH FOOD 100 Apr 11, 2021 [id number] Apr 10, 2020 [facility] MAGNESIUM OXIDE 420MG TAB Discontinued TAKE ONE TABLE T BY MOUTH TWICE A DAY TAKE WITH FOOD 100 Jan 14, 2020 [id number] Dec 29, 2019 [facility] OMEPRAZOLE 20MG CAP,EC Active TAKE 1 CAPSULE BY MOUTH ONCE DAILY FOR THE STOMACH 90 Dec 30, 2020 [id number] Apr 07, 2020 [facility] OMEPRAZOLE 20MG CAP,EC Discontinued TAKE 1 CAPSULE BY MOUTH ONCE DAILY FOR THE STOMACH 90 Dec 23, 2019 [id number] Oct 14, 2019 KESHAWN SHERMAN [facility] POTASSIUM CHLORIDE 20MEQ TAB,SA (DISPERSIBLE) Active TAKE ONE TABLET BY MOUTH ONCE DAILY WITH FOOD 90 Dec 30, 2020 [id number] Apr 19, 2020 HAMLET SHERMAN [facility] POTASSIUM CHLORIDE 20MEQ TAB,SA (DISPERSIBLE) Discontinued TAKE ONE TABLET BY MOUTH ONCE DAILY WITH FOOD 90 Dec 23, 2019 [id number] Nov 11, 2019 [facility] RANITIDINE HCL 150MG TAB Discontinued TAKE TWO TABLET S BY MOUTH AT BEDTIME FOR STOMACH 180 Dec 23, 2019 [id number] Jul 26, 2019 KESHAWN SHERMAN [place] VENLAFAXINE HCL 37.5MG 24HR CAP,SA Active TAKE 3 CAPSULES BY MOUTH EVERY MORNING FOR MOOD 270 Apr 08, 2021 [id number] Apr 07, 2020 KENA [facility] [facility] VENLAFAXINE HCL 37.5MG 24HR CAP,SA Discontinued TAKE 3 CAPSULES BY MOUTH EVERY MORNING FOR MOOD 270 Jun 01, 2020 [id number] Dec 29, 2019 [facility] VENLAFAXINE HCL 75MG 24HR CAP,SA Discontinued TAKE ON E CAPSULE BY MOUTH EVERY MORNING FOR MOOD 90 Apr 13, 2020 [id number] Apr 13, 2019 KESHAWN SHERMAN [facility] Problems (Conditions): All historical and current Section Date Range: From patient's date of to the date document was create d. This section includes a list of Problems (Conditions) know n to [facility] for the patient. It includes both active and inacti ve problems (conditions). The data comes from all [place] treatment facilities. Problem Status Problem Code Date of Onset Date of Resolution Comm ent(s) Provider Source Allergic rhinitis * (ICD-9-CM 477.9) Active 477.9 [facility] [place] [place] Chronic kidney disease stage 3 Active 761578505 KESHAWN SHERMAN Corneal epithelial dystrophy Active 998367018 [facility] [place] [facility] Depression Active 57397137 KESHAWN SHERMAN ETNEHEMIAH [place] Gastroesophageal reflux disease (SNOMED CT 800172163) Active [id number] Nov 30, 2009 Entered By: FRANCO HERNANDEZ Comment: hiatal herniaFe2009 Entered By: FRANCO HERNANDEZ Comment: schiatzski ringFeb 2010 Entered By: FRANCO HERNANDEZ Comment: omeprazole and Zantac.Jun 24, 2012 Entered By: FRANCO HERNANDEZ Comment: GERD KESHAWN SHERMAN H/O: surgery Active 700327794 Aug 21, 2012 Entered By: FRANCO HERNANDEZ [...] HERNANDEZ History of polyp of colon Active 324820286 February 24, 2009 Entered By: FRANCO HERNANDEZ Comment: next colonoscopy 2008 Entered By: FRANCO HERNANDEZ Comment: tubulovilousNov 2011 Entered By: FRANCO HERNANDEZ Comment: AUG 20, 2012@14:08:51 Colonoscopy :Diverticulosis Aug 21, 2012 Entered By: FRANCO HERNANDEZ Comment: Repeat of Colonoscopy in 5 years 2017 Entered By: KESHAWN SHERMAN Comment: he refuses repeat colonoscopy KESHAWN SHERMAN Hyperlipidemia Active 55534421 KESHAWN SHERMAN Hypertension Active 86447846 KESHAWN SHERMAN Hypotonic bladder Active 741869118 Dec 28, 2014 Entered By: KESHAWN SHERMAN Comment: Inability to void, was seen March 2013 with catheter placedDec 28, 2014 Entered By: KESHAWN SHERMAN Comment: Now has permanent suprapubic catheterDec 28, 2014 Entered By: KESHAWN SHERMAN Comment: D/c terazosin KESHAWN SHERMAN Impaired glucose tolerance Active 3445346 Dec 31, 2013 Entered By: KESHAWN SHERMAN Comment: A1c 5.9% Dec Entered By: KESHAWN SHERMAN Comment: 5.9% December Entered By: KESHAWN SHERMAN Comment: A1c 5.9% December Entered By: KESHAWN SHERMAN Comment: a1c 6.3% December 2018 KESHAWN SHERMAN Lumbago Active 377156636 KESHAWN SHERMAN Monoclonal gammopathy of uncertain significance Active 267048064 KESHAWN SHERMAN Obesity Active 278.00 Nov 27, 2010 E ntered By: FRANCO HERNANDEZ Comment: bmi 36Dec 18, 2010 Entered By: FRANCO HERNANDEZ Comment: bmi 34 FRANCO HERNANDEZ [place] Tinnitus Active 388.30 FRANCO HERNANDEZ Benign Prostatic Hypertrophy Inactive 799.9 Dec 25, 2017 Jun 24, 2012 Entered By: FRANCO HERNANDEZ Comment: BPH FRANCO HERNANDEZ Depression * (ICD-9-CM 300.4/311.) Inactive 311. M ar 2017Nov 27, 2010 Entered By: FRANCO HERNANDEZ Comment: on effexor FLMARCELLORY,STEPHEN [place] Diverticulosis Inactive 562.10 Dec 25, 2017 February 24, 2009 Entered By: FRANCO HERNANDEZ Comment: descending and sigmoidNov 2011 Entered By: FRANCO HERNANDEZ Comment: AUG 20, 2012@14:08:51 Colonoscopy :Diverticulosis FRANCO HERNANDEZ HYPERCHOLESTEROLEMIA Inactive 272.0 Dec 25, 2017 Se p 2011 Entered By: FRANCO HERNANDEZ Comment: low chol dietSep 2011 Entered By: FRANCO HERNANDEZ Comment: ldl =90 on crestor 10 FARNCO HERNANDEZ Hypertension Inactive 401.9 Dec 25, 2017 [...] the Encounter. Date/Time Encounter Note(s) Provider Source February 29, 2020 12:00 AM NONVA CONSULT: LOCAL TITLE: COMMUNITY CARE-CONSULT RESULT NOTE STANDARD TITLE: NONVA CONSULT DATE OF NOTE: FEBRUARY 29, 2020 ENTRY DATE: MARCH 03, 2020@10:00:50 AUTHOR: GINNY EID EXP COSIGNER: URGENCY: STATUS: COMPLETED VistA Imaging - Scanned Document [facility] 04/02/2019----02/29/2020 VISIT---CHEIKH /marilyn/ GINNY EID Signed: 03/03/2020 10:00 GINNY EID [facility]
--- OUTSIDE RECORDS SUMMARY | 2020-04-30 08:15 | XMS REPORT | Encounter Summary ---
Author Author Department [facility] MARGARET pereira Organization Department [facility] Address [address] [place] [phone] Phone Unavailable Care Team Providers Care Lasting Room Supervisor Name Role Phone KESHAWN SHERMAN PCP [...] PART A Aug 20, 2011 PART A [id number] MARGARET LI PATIENT MEDICARE (WNR) MEDICARE (M) PART B Aug 20, 2011 PART B [id number] [phone] GUILLERMOMARGARET PATIENT MEDICARE (WNR) MEDICARE (M) PART A Aug 20, 2011 PART A [id number] [phone] MARGARET LI PATIENT MEDICARE (WNR) MEDICARE (M) PART B Aug 20, 2011 PART B [id number] [phone] GUILLERMOMARGARET PATIENT Selected Encounter This section includes the information on record at [place] for the Encounter. Date/Time Encounter Type Encounter Description Reason Provider Source February 28, 2020 03:46 PM Outpatient Encounter TELEPHONE/OPTOMETRY I CD-10-CM Z71.89 Other specified counseling with Provider Comments: Counseling,Oth Specified MAGEN CORONA [facility] IHE Encounter Template Text not used by [facility] Assessments - Encounter Diagnoses This section includes the primary and secondary diag noses documented for the Encounter. Date/Time Primary/Secondary Diagnosis Diagnosis Name Provider Source February 28, 2020 03:46 PM PRIMARY Other specified counseling MELIA SCHAFFER [facility] Plan of Treatment: Future Appointments (+ 6 months) and Future Tests (+/- 45 day s) The Plan of Treatment section includes future care activities for the patient fr om all [facility]. This section includes future appointments and fu ture orders which are active, pending or scheduled. Future Appointments This section includes appointments that were scheduled t o occur 6 months from the date of the Encounter, up to a maximum of 20 appointme nts. The data comes from all [facility]. Appointment Date/Time Appointment Type Appointment Facili ty Name Mar 31, 2020 01:00 PM AMBULATORY - NONE [facility] Apr 05, 2020 07:30 AM AMBULATORY - NONE [facility] Apr 05, 2020 08:30 AM AMBULATORY - NONE [facility] Apr 12, 2020 09:30 AM AMBULATORY - MEDICINE [facility] May 16, 2020 11:00 AM AMBULATORY - NONE [facility] May 24, 2020 02:00 PM AMBULATORY - PSYCHIATRY [facility] Active, Pending, and Scheduled Orders [...] the Encounter. The data comes from all [facility]. Test Date/Time Test Type Test Details Facility Name Jan 19, 2020 01:04 PM Consult Order COMMUNITY CARE-OPT OMETRY Cons News Videotape Editor's Choice [facility] Surgical Procedures: All associated to [...] Adverse Reactions (ADR s) on record with [place] for the patient. The data comes from a ll [place] treatment facilities. It does not list Allergies/ADRs [...] Date Range: 1) prescriptions processed by a [place] pharmacy in the last 15 m [facility], and 2) all medications recorded in the [place] medical record as "non-VA medic ations". Pharmacy terms refer to [place] pharmacy's work on prescriptions. [place] patient s are advised to take their medications as instructed by their health care team. The data comes from all [place] treatment facilities. Glossary of Pharmacy Terms:Active = A prescription that can be filled at the local [place] pharmacy.Active: On Hold = An active prescription that will not be filled until pharmacy resolves the issue.Active: Susp = An active prescription that is not scheduled to be filled yet.Clinic Order = A medication received during a visit to a [place] clinic or emergency department (currently not available).Discontinued [...] may be a prescription from either the [place] or other providers that was filled outside the [place]. Or, it may be an over the [...] FOR BLOOD PRESSURE 90 Sep 24, 2020 [id number] Apr 07, 2020 KESHAWN JOHNSON [facility] ATENOLOL 50MG/CHLORTHALIDONE 25MG TAB Discontinued TA KE 1 TABLET BY MOUTH EVERY MORNING FOR BLOOD PRESSURE 90 Oct 17, 2019 [id number] Jul 26, 2019 KESHAWN JOHNSON [facility] ATORVASTATIN CA 80MG TAB Active TAKE ONE-HALF T ABLET BY MOUTH AT BEDTIME FOR CHOLESTEROL - DO NOT TAKE WITH GRAPEFRUIT JUICE 45 Apr 11, 2021 [id number] Apr 10, 2020 KESHAWN SHERMAN [facility] ATORVASTATIN CA 80MG TAB Discontinued TAKE ONE-HALF T ABLET BY MOUTH AT BEDTIME FOR CHOLESTEROL - DO NOT TAKE WITH GRAPEFRUIT JUICE 45 Dec 23, 2019 [id number] Oct 14, 2019 KESHAWN SHERMAN [facility] CARBOXYMETHYLCELLULOSE NA 0.5% SOLN,OPH INSTILL ONE DROP IN EACH EYE FOUR TIMES DAILY 15 Feb 10, 2020 [id number] Feb 09, 2019 MAGEN CORONA [facility] CARBOXYMETHYLCELLULOSE NA 1% GEL,OPH INS TILL ONE DROP TO EACH EYE TWICE A DAY 15 Feb 10, 2020 [id number] Feb 09, 2019 MAGEN CORONA [facility] CIPROFLOXACIN HCL 500MG TAB Active TAKE ONE TAB LET BY MOUTH TWICE A DAY - ANTIBIOTIC - TAKE UNTIL GONE *TAKE WITH FOOD AND AVOID TAKING WITH DAIRY OR PRODUCTS CONTAINING ALUMINUM, IRON, CALCIUM, OR MAGNESIUM* 14 J 2019 [id number] Apr 12, 2020 ALEXANDRA REYES [facility] FAMOTIDINE 40MG TAB Active TAKE ONE TABLET BY M OUTH ONCE DAILY FOR STOMACH/REFLUX 30 Apr 12, 2021 [id number] Apr 11, 2020 KESHAWN SHERMAN [facility] FAMOTIDINE 40MG TAB Discontinued TAKE ONE TABLET BY M OUTH ONCE DAILY FOR STOMACH/REFLUX 90 Sep 24, 2020 [id number] Dec 29, 2019 KESHAWN SHERMAN [facility] FLUTICASONE PROPIONATE 50MCG/SPRAY SOLN,NASAL,16GM Active USE 2 SPRAYS IN NOSE TWICE A DAY SHAKE GENTLY BEFORE USE 3 Apr 11, 2021 [id number] J 2019 KESHAWN SHERMAN [facility] FLUTICASONE PROPIONATE 50MCG/SPRAY SOLN,NASAL,16GM Discontin ued USE 2 SPRAYS IN NOSE TWICE A DAY SHAKE GENTLY BEFORE USE 3 Dec 23, 2019 [id number] Jul 26, 2019 KESHAWN SHERMAN [facility] IBUPROFEN 600MG TAB Non- [facility] TAKE ONE TABLET BY MOUTH THREE TIMES DAILY WITH MEALS NEEDED Non-VA Documented by: KESHAWN SHERMAN Docume nted at: [facility] MAGNESIUM OXIDE 420MG TAB Active TAKE ONE TABLE T BY MOUTH TWICE A DAY TAKE WITH FOOD 100 Apr 11, 2021 [id number] Apr 10, 2020 [facility]IDE 420MG TAB Discontinued TAKE ONE TABLE T BY MOUTH TWICE A DAY TAKE WITH FOOD 100 Jan 14, 2020 [id number] Dec 29, 2019 [facility] OMEPR[facility]LE 20MG CAP,EC Active TAKE 1 CAPSULE BY MOUTH ONCE DAILY FOR THE STOMACH 90 Dec 30, 2020 [id number] Apr 07, 2020 KESHAWN SHERMAN [facility] OMEPRAZOLE 20MG CAP,EC Discontinued TAKE 1 CAPSULE BY MOUTH ONCE DAILY FOR THE STOMACH 90 Dec 23, 2019 [id number] Oct 14, 2019 [facility] POTASSIUM CHLORIDE 20MEQ TAB,SA (DISPERSIBLE) Active TAKE ONE TABLET BY MOUTH ONCE DAILY WITH FOOD 90 Dec 30, 2020 [id number] Apr 19, 2020 HAMLET SHERMAN [facility] POTASSIUM CHLORIDE 20MEQ TAB,SA (DISPERSIBLE) Discontinued TAKE ONE TABLET BY MOUTH ONCE DAILY WITH FOOD 90 Dec 23, 2019 [id number] Nov 11, 2019 [facility] RANITIDINE HCL 150MG TAB Discontinued TAKE TWO TABLET S BY MOUTH AT BEDTIME FOR STOMACH 180 Dec 23, 2019 [id number] Jul 26, 2019 KESHAWN SHERMAN [facility] VENLAFAXINE HCL 37.5MG 24HR CAP,SA Active TAKE 3 CAPSULES BY MOUTH EVERY MORNING FOR MOOD 270 Apr 08, 2021 [id number] Apr 07, 2020 KENA RAGSDALE [facility] VENLAFAXINE HCL 37.5MG 24HR CAP,SA Discontinued TAKE 3 CAPSULES BY MOUTH EVERY MORNING FOR MOOD 270 Jun 01, 2020 [id number] Dec 29, 2019 KENA [facility]AGSDALE [facility] VENLAFAXINE HCL 75MG 24HR CAP,SA Discontinued TAKE ON E CAPSULE BY MOUTH EVERY MORNING FOR MOOD 90 Apr 13, 2020 [id number] Apr 13, 2019 KESHAWN SHERMAN [facility] Problems (Conditions): All historical and current Section Date Range: From patient's date of to the date document was create d. This section includes a list of Problems (Conditions) know n to [facility] for the patient. It includes both active and inacti ve problems (conditions). The data comes from all [place] treatment facilities. Problem Status Problem Code Date of Onset Date of Resolution Comm ent(s) Provider Source Allergic rhinitis * (ICD-9-CM 477.9) Active 477.9 STEPHEN BARAJAS Chronic kidney disease stage 3 Active 117287173 KESHAWN SHERMAN Corneal epithelial dystrophy Active 766860944 [facility] [place] [facility] Depression Active 84002635 KESHAWN SHERMAN Gastroesophageal reflux disease (SNOMED CT 164461931) Active 2355 56335 Nov 30, 2009 Entered By: FRANCO HERNANDEZ Comment: hiatal herniaNov 30, 2009 Entered By: FRANCO HERNANDEZ Comment: schiatzski ringFeb 2010 Entered By: FRANCO HERNANDEZ Comment: omeprazole and Zantac.Jun 24, 2012 Entered By: FRANCO HERNANDEZ Comment: GERD KESHAWN SHERMAN H/O: surgery Active 984257069 Aug 21, 2012 Entered By: FRANCO HERNANDEZ [...] HERNANDEZ History of polyp of colon Active 240998332 February 24, 2009 Entered By: FRANCO HERNANDEZ Comment: next colonoscopy 2008 Entered By: FRANCO HERNANDEZ Comment: tubulovilousNov 2011 Entered By: FRANCO HERNANDEZ Comment: AUG 20, 2012@14:08:51 Colonoscopy :Diverticulosis Aug 21, 2012 Entered By: FRANCO HERNANDEZ Comment: Repeat of Colonoscopy in 5 years 2017 Entered By: KESHAWN SHERMAN Comment: he refuses repeat colonoscopy KESHAWN SHERMAN Hyperlipidemia Active 56409062 KESHAWN SHERMAN Hypertension Active 19668858 KESHAWN SHERMAN Hypotonic bladder Active 270175705 Dec 28, 2014 Entered By: KESHAWN SHERMAN Comment: Inability to void, was seen March 2013 with catheter placedDec 28, 2014 Entered By: KESHAWN SHERMAN Comment: Now has permanent suprapubic catheterDec 28, 2014 Entered By: KESHAWN SHERMAN Comment: D/c terazosin KESHAWN SHERMAN Impaired glucose tolerance Active 1320304 Dec 31, 2013 Entered By: KESHAWN SHERMAN Comment: A1c 5.9% Dec Entered By: KESHAWN SHERMAN Comment: 5.9% December Entered By: KESHAWN SHERMAN Comment: A1c 5.9% December Entered By: KESHAWN SHERMAN Comment: a1c 6.3% December 2018 KESHAWN SHERMAN Lumbago Active 623483355 KESHAWN SHERMAN Monoclonal gammopathy of uncertain significance Active 531250754 KESHAWN SHERMAN Obesity Active 278.00 Nov 27, [...] Hypertension Inactive 401.9 Dec 25, 2017 Sep , 20 12 Entered By: FRANCO HERNANDEZ Comment: HTNSep [...] Encounter. Date/Time Encounter Note(s) Provider Source February 28, 2020 03:47 PM EYE TELEPHONE ENCOUNTER NOTE : LOCAL TITLE: TELECARE-EYE STANDARD TITLE: EYE TELEPHONE ENCOUNTER NOTE DATE OF NOTE: FEBRUARY 28, 2020@15:47 ENTRY DATE: FEBRUARY 28, 2020@15:47:04 AUTHOR: MELIA CARRILLO EXP COSIGNER: URGENCY: STATUS: COMPLETED TELECARE-EYE Has ADDENDA Spoke to patient. He says the ear pieces fell off of his most recent glasses. He is requesting a replacement pair. Advised unless he hears differently from [facility], then please expect glasses to arrive in the mail within 2-6 weeks. Pt voiced understanding. /marilyn/ MELIA CARRILLO LPN [facility] Signed: 02/28/2020 15:50 Receipt Acknowledged By: 02/28/2020 16:17 /marilyn/ MAGEN BLOOM, ROXANNA STAFF TA[employer]ING [employer], [facility] 02/28/2020 ADDENDUM STATUS: COMPLETED Placed another order today for replacement glasses. Last order was placed 01/19/20. /es/ MAGEN CORONA, ROXANNA STAFF [employer], [facility] Signed: 02/28/2020 16:21 03/20/2020 ADDENDUM STATUS: COMPLETED pt would like to discuss glasses please return his call. /marilyn/ NELY VASQUES [employer] Signed: 03/20/2020 13:23 Receipt Acknowledged By: 03/20/2020 13:37 /marilyn/ MELIA RIVER LPN [facility] 03/20/2020 ADDENDUM STATUS: COMPLETED Request came today to please return a call to patient. States this latest pair of glasses he received have broken already and less than a months' time. Patient says this particular frame seems to be very weak and doesn't hold up for any length of wear. He is requesting a metal frame. Advised that we don't have optical services currently for fitting and frame selection. Pt states he does not have glasses for back up. Advised we are seeing patients on emergency basis only as well and I will forward his issue to provider for any other recommendations. /marilyn/ EMLIA CARRILLO LPN [facility] Signed: 03/20/2020 13:57 Receipt Acknowledged By: 03/20/2020 14:08 /marilyn/ MAGEN BLOOM, OD STAFF TAILING [employer], [facility] 03/20/2020 ADDENDUM STATUS: COMPLETED It looks like pt is currently scheduled to see Dr Khadijah MD, at [facility] on 03/31/20 at 1300 for cataract surgery ev aluation. If pt is deemed a good surgical candidate for cataract surgery one or both eyes, and decides to pursue cataract surgery/surgeries, his current eyeglass prescription will no longer work for him after the surgeries. If pt is still wanting new glasses before his cataract surgery, I can either fax a copy of his eyeglass prescription to any local optical near him (pt will have to pay for the glasses since [facility] not [facility]) or I can try placing yet another eyeglass order [facility] glasses [facility]. It looks like [place] did [facility] the [facility]. So if he wants to try metal frames , I can use that fitting information to place order and have mailed out to pt. Again, the glasses prescription will change after cataract surgeries and will no longer work for him after surgery. Let me know how he'd like to proceed. /marilyn/ MAGEN CORONA, ROXANNA STAFF [employer], [facility] Signed: 03/20/2020 14:19 Receipt Acknowledged By: 03/20/2020 14:37 /marilyn/ MELIA RIVER LPN [facility] 03/20/2020 ADDENDUM STATUS: COMPLETED Spoke to patient and gave him info per provider. Patient states he wants to be seen for the cataract eval and have surgery if needed before he pursues getting new glasses. Advised I will let his provider know of his decision. Pt voiced understanding and agreement. /marilyn/ MELIA CARRILLO LPN [facility] Signed: 03/20/2020 14:39 Receipt Acknowledged By: 03/20/2020 14:49 /neeta BLOOM, OD STAFF TAILING HAND, [facility] MELIA CARRILLO [facility]
--- OUTSIDE RECORDS SUMMARY | 2020-04-30 08:15 | XMS REPORT | Encounter Summary ---
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 Date/Time Encounter Type Encounter Description Reason Provider Source Jan 18, 2020 04:23 PM Outpatient Encounter TELEPHONE/OPTOMETRY I CD-10-CM Z71.89 Other specified counseling with Provider Comments: Counseling,Oth Specified MAGEN CORONA [facility] IHE Encounter Template Text not used by [facility] Assessments - Encounter Diagnoses This section includes the primary and secondary diag noses documented for the Encounter. Date/Time Primary/Secondary Diagnosis Diagnosis Name Provider Source Jan 18, 2020 04:23 PM PRIMARY Other specified counseling MELIA SCHAFFER [facility] Plan of Treatment: Future Appointments (+ 6 months) and Future Tests (+/- 45 day s) The Plan of Treatment section includes future care activities for the patient fr om all [facility]. This section includes future appointments and fu ture orders which are active, pending or scheduled. Future Appointments This section includes appointments that were scheduled t o occur 6 months from the date of the Encounter, up to a maximum of 20 appointme nts. The data comes from all [facility]. Appointment Date/Time Appointment Type Appointment Facili ty Name Mar 31, 2020 01:00 PM AMBULATORY - NONE [facility] Apr 05, 2020 07:30 AM AMBULATORY - NONE [facility] Apr 05, 2020 08:30 AM AMBULATORY - NONE [facility] Apr 12, 2020 09:30 AM AMBULATORY - MEDICINE [facility] May 16, 2020 11:00 AM AMBULATORY - NONE [facility] May 24, 2020 02:00 PM AMBULATORY - PSYCHIATRY [facility] Active, Pending, and Scheduled Orders [...] the Encounter. The data comes from all [facility]. Test Date/Time Test Type Test Details Facility Name Jan 19, 2020 01:04 PM Consult Order [facility]ITY [facility]-OPT OMETRY Cons Splitter Machine's Choice [facility] Surgical Procedures: All associated to the [...] Adverse Reactions (ADR s) on record with ME for the patient. The data comes from a ll ME treatment facilities. It does not list Allergies/ADRs [...] Date Range: 1) prescriptions processed by a ME pharmacy in the last 15 m [facility], and 2) all medications recorded in the ME medical record as "non-VA medic ations". Pharmacy terms refer to ME pharmacy's work on prescriptions. ME patient s are advised to take their medications as instructed by their health care team. The data comes from all [place] treatment facilities. Glossary of Pharmacy Terms:Active = A prescription that can be filled at the local [place] pharmacy.Active: On Hold = An active prescription that will not be filled until pharmacy resolves the issue.Active: Susp = An active prescription that is not scheduled to be filled yet.Clinic Order = A medication received during a visit to a ME clinic or emergency department (currently not available).Discontinued [...] may be a prescription from either the ME or other providers that was filled outside the ME. Or, it may be an over the [...] FOR BLOOD PRESSURE 90 Sep 24, 2020 [id number] Apr 07, 2020 KESHAWN JOHNSON [facility] ATENOLOL 50MG/CHLORTHALIDONE 25MG TAB Discontinued TA KE 1 TABLET BY MOUTH EVERY MORNING FOR BLOOD PRESSURE 90 Oct 17, 2019 [id number] Jul 26, 2019 KESHAWN JOHNSON [facility] ATORVASTATIN CA 80MG TAB Active TAKE ONE-HALF T ABLET BY MOUTH AT BEDTIME FOR CHOLESTEROL - DO NOT TAKE WITH GRAPEFRUIT JUICE 45 Apr 11, 2021 [id number] Apr 10, 2020 [facility]WN SHERMAN [facility] ATORVASTATIN CA 80MG TAB Discontinued TAKE ONE-HALF T ABLET BY MOUTH AT BEDTIME FOR CHOLESTEROL - DO NOT TAKE WITH GRAPEFRUIT JUICE 45 Dec 23, 2019 [id number] Oct 14, 2019 [facility] CARBOXYMETHYLCELLULOSE NA 0.5% SOLN,OPH INSTILL ONE DROP IN EACH EYE FOUR TIMES DAILY 15 Feb 10, 2020 [id number] Feb 09, 2019 MAGEN CORONA [facility] CARBOXYMETHYLCELLULOSE NA 1% GEL,OPH INS TILL ONE DROP TO EACH EYE TWICE A DAY 15 Feb 10, 2020 [id number] Feb 09, 2019 MAGEN CORONA [facility] CIPROFLOXACIN HCL 500MG TAB Active TAKE ONE TAB LET BY MOUTH TWICE A DAY - ANTIBIOTIC - TAKE UNTIL GONE *TAKE WITH FOOD AND AVOID TAKING WITH DAIRY OR PRODUCTS CONTAINING ALUMINUM, IRON, CALCIUM, OR MAGNESIUM* 14 J 2019 [id number] Apr 12, 2020 ALEXANDRA REYES [facility] FAMOTIDINE 40MG TAB Active TAKE ONE TABLET BY M OUTH ONCE DAILY FOR STOMACH/REFLUX 30 Apr 12, 2021 [id number] Apr 11, 2020 [facility]ER[facility] FAMOTIDINE 40MG TAB Discontinued TAKE ONE TABLET BY M OUTH ONCE DAILY FOR STOMACH/REFLUX 90 Sep 24, 2020 [id number] Dec 29, 2019 [facility]WN SHER[facility] FLUTICASONE PROPIONATE 50MCG/SPRAY SOLN,NASAL,16GM Active USE 2 SPRAYS IN NOSE TWICE A DAY SHAKE GENTLY BEFORE USE 3 Apr 11, 2021 [id number] J 2019 [facility] FLUTICASONE PROPIONATE 50MCG/SPRAY SOLN,NASAL,16GM Discontin ued USE 2 SPRAYS IN NOSE TWICE A DAY SHAKE GENTLY BEFORE USE 3 Dec 23, 2019 [id number] Jul 26, 2019 [facility]ER[facility] IBUPROFEN 600MG TAB Non- VA TAKE ONE TABLET BY MOUTH THREE TIMES DAILY WITH MEALS NEEDED Non-VA Documented by: KESHAWN SHERMAN Docume nted at: [facility] MAGNESIUM OXIDE 420MG TAB Active TAKE ONE TABLE T BY MOUTH TWICE A DAY TAKE WITH FOOD 100 Apr 11, 2021 [id number] Apr 10, 2020 [facility] MAGNESIUM OXIDE 420MG TAB Discontinued TAKE ONE TABLE T BY MOUTH TWICE A DAY TAKE WITH FOOD 100 Jan 14, 2020 [id number] Dec 29, 2019 [facility] OMEPRAZOLE 20MG CAP,EC Active TAKE 1 CAPSULE BY MOUTH ONCE DAILY FOR THE STOMACH 90 Dec 30, 2020 [id number] Apr 07, 2020 KESHAWN SHERMAN [facility] OMEPRAZOLE 20MG CAP,EC Discontinued TAKE 1 CAPSULE BY MOUTH ONCE DAILY FOR THE STOMACH 90 Dec 23, 2019 [id number] Oct 14, 2019 [facility] POTASSIUM CHLORIDE 20MEQ TAB,SA (DISPERSIBLE) Active TAKE ONE TABLET BY MOUTH ONCE DAILY WITH FOOD 90 Dec 30, 2020 [id number] Apr 19, 2020 HAMLET SHERMAN [facility] POTASSIUM CHLORIDE 20MEQ TAB,SA (DISPERSIBLE) Discontinued TAKE ONE TABLET BY MOUTH ONCE DAILY WITH FOOD 90 Dec 23, 2019 [id number] Nov 11, 2019 [facility] RANITIDINE HCL 150MG TAB Discontinued TAKE TWO TABLET S BY MOUTH AT BEDTIME FOR STOMACH 180 Dec 23, 2019 [id number] Jul 26, 2019 KESHAWN SHERMAN [facility] VENLAFAXINE HCL 37.5MG 24HR CAP,SA Active TAKE 3 CAPSULES BY MOUTH EVERY MORNING FOR MOOD 270 Apr 08, 2021 [id number] Apr 07, 2020 [facility] VENLAFAXINE HCL 37.5MG 24HR CAP,SA Discontinued TAKE 3 CAPSULES BY MOUTH EVERY MORNING FOR MOOD 270 Jun 01, 2020 [id number] Dec 29, 2019 [facility] VENLAFAXINE HCL 75MG 24HR CAP,SA Discontinued TAKE ON E CAPSULE BY MOUTH EVERY MORNING FOR MOOD 90 Apr 13, 2020 [id number] Apr 13, 2019 KESHAWN SHERMAN [facility] Problems (Conditions): All historical and current Section Date Range: From patient's date of to the date document was create d. This section includes a list of Problems (Conditions) know n to [facility] for the patient. It includes both active and inacti ve problems (conditions). The data comes from all [place] treatment facilities. 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 [facility] Depression Active 93167417 KESHAWN SHERMAN Gastroesophageal reflux disease (SNOMED CT 567457920) Active 2355 59555 Nov 30, 2009 Entered By: FRANCO HERNANDEZ Comment: hiatal herniaNov 30, 2009 Entered By: FRANCO HERNANDEZ Comment: schiatzski ringFeb 2010 Entered By: FRANCO HERNANDEZ Comment: omeprazole and Zantac.Jun 24, 2012 Entered By: FRANCO HERNANDEZ Comment: GERD KESHAWN SHERMAN H/O: surgery Active 964362843 Aug 21, 2012 Entered By: FRANCO HERNANDEZ [...] HERNANDEZ History of polyp of colon Active 625272483 February 24, 2009 Entered By: FRANCO HERNANDEZ Comment: next colonoscopy 2008 Entered By: FRANCO HERNANDEZ Comment: tubulovilousNov 2011 Entered By: FRANCO HERNANDEZ Comment: AUG 20, 2012@14:08:51 Colonoscopy :Diverticulosis Aug 21, 2012 Entered By: FRANCO HERNANDEZ Comment: Repeat of Colonoscopy in 5 years 2017 Entered By: KESHAWN SHERMAN Comment: he refuses repeat colonoscopy KESHAWN SHERMAN Hyperlipidemia Active 37216532 KESHAWN SHERMAN Hypertension Active 72991518 KESHAWN SHERMAN 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 Dec 28, 2014 Entered By: KESHAWN SHERMAN Comment: Inability to void, was seen March 2013 with catheter placedDec 28, 2014 Entered By: KESHAWN SHERMAN Comment: Now has permanent suprapubic catheterDec 28, 2014 Entered By: KESHAWN SHERMAN Comment: D/c terazosin KESHAWN SHERMAN Impaired glucose tolerance Active 9356785 Dec 31, 2013 Entered By: KESHAWN SHERMAN Comment: A1c 5.9% Dec Entered By: KESHAWN SHERMAN Comment: 5.9% December Entered By: KESHAWN SHERMAN Comment: A1c 5.9% December Entered By: KESHAWN SHERMAN Comment: a1c 6.3% December 2018 KESHAWN SHERMAN Lumbago Active 159107870 KESHAWN SHERMAN Monoclonal gammopathy of uncertain significance Active 358594294 KESHAWN SHERMAN Obesity Active 278.00 Nov 27, [...] Encounter. Date/Time Encounter Note(s) Provider Source Jan 19, 2020 08:28 AM ORTHOTICS PROSTHETICS OUTPAT IENT NOTE: LOCAL TITLE: EYEGLASS PRESCRIPTION STANDARD TITLE: ORTHOTICS PROSTHETICS OUTPATIENT NOTE DATE OF NOTE: JAN 19, 2020@08:28 ENTRY DATE: JAN 19, 2020@08:28:34 AUTHOR: MAGEN CORONA EXP COSIGNER: URGENCY: STATUS: COMPLETED EYEGLASS PRESCRIPTION Has ADDENDA [facility] [address] [address] Eye Clinic: Exam Date: Jan Expiration Date: Jan : MARGARET LI Right Eye: -6.75-0.91e203 Left Eye: -4.25-2.80d238 ADD:+2.50 Lens Style: Bifocal Lens Material: Polycarbonate Additional Options: Tint Medically Authorized Additions:OK for gradient tint /marilyn/ MAGEN CORONA, ROXANNA STAFF MEDICAL LEGAL INVESTIGATOR, [place] [facility] Signed: 01/19/2020 08:29 01/19/2020 ADDENDUM STATUS: COMPLETED Location:[place] Reason for request:New RX Delivery Instructions: Mail to : Margaret Li [address] [place] [address] [facility] RX INFORMATION OD -6.75-0.44z260 OS -4.25-2.97x855 Add: +2.50 END RX INFORMATION FITTING INFORMATION FPD: 62.5 NPD: Heard: R: L: SEG HEIGHT: 16 TINT: Silva/Leona SHADE: Gradient 1 END FITTING INFORMATION [facility] Billable Items FRAME: [MODERN FELIPE BLACK] 53/16/145 LENSES: POLYCARBONATE BIFOCAL FT28 Silva/Leona Gradient 1 /es/ MAGEN CORONA, ROXANNA STAFF MEDICAL LEGAL INVESTIGATOR, [place] [facility] Signed: 01/19/2020 08:43 [facility] CORONA [facility] Jan 18, 2020 04:23 PM EYE TELEPHONE ENCOUNTER NOTE : LOCAL TITLE: TELECARE-EYE STANDARD TITLE: EYE TELEPHONE ENCOUNTER NOTE DATE OF NOTE: JAN 18, 2020@16:23 ENTRY DATE: JAN 18, 2020@16:23:45 AUTHOR: MELIA CARRILLO EXP COSIGNER: URGENCY: STATUS: COMPLETED TELECARE-EYE Has ADDENDA Returned call to patient. He said his glasses are broken in half. He is requesting a replacement. Feels his vision is stable however he goes on to say that he was never scheduled with [facility] for his cataracts, nat vision exam, and possible strabismus surgery. Patient said no one contacted him and that [facility] was not aware of any appointments. Advised glasses will be mailed to him and that someone will be contacting him regarding follow up appointment(s). /es/ MELIA CARRILLO LPN PRIMARY CARE LICENSED PRACTICAL NURSE-[place] Signed: 01/18/2020 16:28 Receipt Acknowledged By: 01/19/2020 08:24 /marilyn/ MAGEN BLOOM OD STAFF MEDICAL LEGAL INVESTIGATOR, [facility] 01/19/2020 ADDENDUM STATUS: COMPLETED Order for replacement glasses placed today. Reviewed eye exam note dated 04/19/[address] Terence MD, strabismus s pecialist at [facility]. Pt was encouraged to have another cataract surgery evaluation and possible cataract surgery before considering eye muscle surgery to correct double vision. Please ask pt if he would like to be scheduled for another eye exam here at the [facility] or be seen locally through [facility] Optometry consult as he lives in [place], [place]. Either way, evaluation will not occur for a couple of months due to ongoing COVID 19 pandemic. Thanks. /marilyn/ MAGEN CORONA OD STAFF MEDICAL LEGAL INVESTIGATOR, [facility] Signed: 01/19/2020 11:31 Receipt Acknowledged By: 01/19/2020 12:45 /marilyn/ MELIA RIVER LPN PRIMARY CARE LICENSED PRACTICAL NURSE-[place] 01/19/2020 ADDENDUM STATUS: COMPLETED Spoke with patient on the phone. He prefers to use [facility] where he lives in [place], [place]. Advised a consult will be entered for the appointment and someone will call him. Unknown at this time how long it will be before he hears from the consult coordinators regarding his appointment date. This is due to the ongoing health care crisis. Patient voiced understanding and agreement. Advised him to please call this clinic if he never hears anything regarding the consult scheduling. Says he has our number now and knows how to reach us. /marilyn/ MELIA CARRILLO LPN PRIMARY CARE LICENSED PRACTICAL NURSE-[place] Signed: 01/19/2020 12:50 Receipt Acknowledged By: 01/19/2020 12:56 /marilyn/ MAGEN BLOOM OD STAFF MEDICAL LEGAL INVESTIGATOR, [place] [facility] MELIA CARRILLO [facility]
--- OUTSIDE RECORDS SUMMARY | 2020-04-30 08:16 | XMS REPORT | Encounter Summary ---
Author Author Department [facility] MARGARET pereira Department of [facility] Address [address] [place] [address] Phone Unavailable Care Team Providers Care Vice President Of Instruction Name Role Phone KESHAWN SHERMAN PCP Unavailable [...] PART A Aug 20, 2011 PART A [id number] [phone] GUILLERMOMARGARET PATIENT MEDICARE (WNR) MEDICARE (M) PART B Aug 20, 2011 PART B [id number] [phone] GUILLERMOMARGARET PATIENT MEDICARE (WNR) MEDICARE (M) PART A Aug 20, 2011 PART A [id number] 80A [phone] GUILLERMOMARGARET PATIENT MEDICARE (WNR) MEDICARE (M) PART B Aug 20, 2011 PART B [id number] 80A [phone] GUILLERMOMARGARET PATIENT Selected Encounter This section includes the information on record at [facility] for the Encounter. Date/Time Encounter Type Encounter Description Reason Provider Source Sep 24, 2019 01:09 PM Outpatient Encounter ADMIN PAT ACTIVTIES ([facility] NCT) [facility] [place] [facility] Encounter Template Text not used by [facility] Assessments - Encounter Diagnoses No Data Provided for This Section Plan of Treatment: Future Appointments (+ 6 months) and Future Tests (+/- 45 day s) The Plan of Treatment section includes future care activities for the patient fr om all [place] treatment facilities. This section includes future appointments and fu ture orders which are active, pending or scheduled. Future Appointments This section includes appointments that were scheduled t o occur 6 months from the date of the Encounter, up to a maximum of 20 appointme nts. The data comes from all [facility] treatment facilities. Appointment Date/Time Appointment Type Appointment Facili ty Name Dec 17, 2019 02:00 PM AM[facility]INE [facility] Jan 11, 2020 11:30 AM [facility] [place] [facility] [place] Jan 11, 2020 01:00 PM [facility] - MEDICINE [facility] [place] [facility] Procedures: All associated to the encounter [...] and tobacco- related health factors from the AR facility where the Encounter took place. Current Smoking Status This section includes the most current smoking, or tobacco -related health factor, from the AR facility where the Encounter took place. Date/Time Current Smoking Status Comment Facility Nov 03, 2018 09:51 AM VA-TOBACCO NEVER USED [place] [facility] Tobacco Use History This section includes a history of the smoking, or tobacco -related health factors, that were collected on or before the date of the Encoun ter. The data comes from the AR facility where the Encounter took place. Date/Time Smoking Status/Tobacco Use Comment [facility] Nov 03, 2018 09:51 AM VA-TOBACCO NEVER [...] 2016 08:51 AM [facility]16 TO[place]ACCO USE [place]EN [facility] [place] Dec 27, 2014 04:28 PM V16 [...] 2009 01:24 PM V16 LIFETIME NON-TOBACCO USER [place] Nov 30, 2009 01:24 PM V16 TOBACCO [place] [facility] [place] [facility] Nov 25, 2008 01:22 PM V16 LIFETIME NON-TOBACCO USER [facility] [place] [facility] Nov 25, 2008 01:22 PM V16 TOBACCO USE [place]CREEN [facility] [place] [facility] Jan 08, 2008 12:49 PM V16 LIFETIME NON-TOBACCO USER [facility] [place] [facility] Jan 08, 2008 12:49 PM V16 TOBACCO USE SCREEN [place] [facility] Apr 28, 2007 01:53 PM V16 TOBACCO CESSATION >7 YEARS [facility]AT [facility] Apr 28, 2007 01:53 PM V16 TOBACCO USE SCREEN [facility] Sep 29, 2006 01:44 PM V16 TOBACCO CESSATION > 12 MONTHS FA [facility] Sep 29, 2006 01:44 PM V16 TOBACCO USE SCREEN [facility] May 21, 2001 11:04 AM LIFETIME NON-TOBACCO USER [place] [place] Nov 20, 2000 01:09 PM LIFETIME NON-TOBACCO USER [place] Advance Directives: All historical and current No Data Provided for This Section Allergies and Adverse Reactions (ADRs): All historical and current Section Date Range: From patient's date of to the date document was create d. This section includes Allergies and Adverse Reactions (ADR s) on record with AR for the patient. The data comes from a [facility] treatment facilities. It does not list Allergies/ADRs [...] VA pharmacy in the last 15 m [facility], and 2) all medications recorded in the AR medical record as "non-VA medic ations". Pharmacy terms refer to AR pharmacy's work on prescriptions. VA patient s are advised to take their medications as instructed by their health care team. The data comes from all [place] treatment facilities. Glossary of Pharmacy Terms:Active = A prescription that can be filled at the local [place] pharmacy.Active: On Hold = An active prescription that will not be filled until pharmacy resolves the issue.Active: Susp = An active prescription that is not scheduled to be filled yet.Clinic Order = A medication received during a visit to a AR clinic or emergency department (currently not available).Discontinued [...] may be a prescription from either the AR or other providers that was filled outside the AR. Or, it may be an over the [...] FOR BLOOD PRESSURE 90 Sep 24, 2020 [id number] Apr 07, 2020 KESHWAN JOHNSON [facility] ATENOLOL 50MG/CHLORTHALIDONE 25MG TAB Discontinued TA KE 1 TABLET BY MOUTH EVERY MORNING FOR BLOOD PRESSURE 90 Oct 17, 2019 [id number] Jul 26, 2019 KESHAWN JOHNSON [facility] ATORVASTATIN CA 80MG TAB Active TAKE ONE-HALF T ABLET BY MOUTH AT BEDTIME FOR CHOLESTEROL - DO NOT TAKE WITH GRAPEFRUIT JUICE 45 Apr 11, 2021 [id number] Apr 10, 2020 KESHAWN SHERMAN [facility] ATORVASTATIN CA 80MG TAB Discontinued TAKE ONE-HALF T ABLET BY MOUTH AT BEDTIME FOR CHOLESTEROL - DO NOT TAKE WITH GRAPEFRUIT JUICE 45 Dec 23, 2019 [id number] Oct 14, 2019 KESHAWN SHERMAN [facility] CARBOXYMETHYLCELLULOSE NA 0.5% SOLN,OPH INSTILL ONE DROP IN EACH EYE FOUR TIMES DAILY 15 Feb 10, 2020 [id number] Feb 09, 2019 [facility] CARBOXYMETHYLCELLULOSE NA 1% GEL,OPH INS TILL ONE DROP TO EACH EYE TWICE A DAY 15 Feb 10, 2020 [id number] Feb 09, 2019 [facility] CIPROFLOXACIN HCL 500MG TAB Active TAKE ONE TAB LET BY MOUTH TWICE A DAY - ANTIBIOTIC - TAKE UNTIL GONE *TAKE WITH FOOD AND AVOID TAKING WITH DAIRY OR PRODUCTS CONTAINING ALUMINUM, IRON, CALCIUM, OR MAGNESIUM* 14 J 2019 [id number] Apr 12, 2020 ALEXANDRA REYES [facility] FAMOTIDINE 40MG TAB Active TAKE ONE TABLET BY M OUTH ONCE DAILY FOR STOMACH/REFLUX 30 Apr 12, 2021 [id number] Apr 11, 2020 KESHAWN SHERMAN [facility] FAMOTIDINE 40MG TAB Discontinued TAKE ONE TABLET BY M OUTH ONCE DAILY FOR STOMACH/REFLUX 90 Sep 24, 2020 [id number] Dec 29, 2019 KESHAWN SHERMAN [facility] FLUTICASONE PROPIONATE 50MCG/SPRAY SOLN,NASAL,16GM Active USE 2 SPRAYS IN NOSE TWICE A DAY SHAKE GENTLY BEFORE USE 3 Apr 11, 2021 [id number] J 2019 KESHAWN SHERMAN [facility] FLUTICASONE PROPIONATE 50MCG/SPRAY SOLN,NASAL,16GM Discontin ued USE 2 SPRAYS IN NOSE TWICE A DAY SHAKE GENTLY BEFORE USE 3 Dec 23, 2019 [id number] Jul 26, 2019 KESHAWN SHERMAN [facility] IBUPROFEN 600MG TAB Non- VA TAKE ONE TABLET BY MOUTH THREE TIMES DAILY WITH MEALS NEEDED Non-VA Documented by: KESHAWN SHERMAN Docume nted at: [facility] [place] MAGNESIUM OXIDE 420MG TAB Active TAKE ONE TABLE T BY MOUTH TWICE A DAY TAKE WITH FOOD 100 Apr 11, 2021 [id number] Apr 10, 2020 [facility] MAGNESIUM OXIDE 420MG TAB Discontinued TAKE ONE TABLE T BY MOUTH TWICE A DAY TAKE WITH FOOD 100 Jan 14, 2020 [id number] Dec 29, 2019 [facility] OMEPRAZOLE 20MG CAP,EC Active TAKE 1 CAPSULE BY MOUTH ONCE DAILY FOR THE STOMACH 90 Dec 30, 2020 [id number] Apr 07, 2020 [facility] OMEPRAZOLE 20MG CAP,EC Discontinued TAKE 1 CAPSULE BY MOUTH ONCE DAILY FOR THE STOMACH 90 Dec 23, 2019 [id number] Oct 14, 2019 [facility] POTASSIUM CHLORIDE 20MEQ TAB,SA (DISPERSIBLE) Active TAKE ONE TABLET BY MOUTH ONCE DAILY WITH FOOD 90 Dec 30, 2020 [id number] Apr 19, 2020 HAMLET SHERMAN [facility] POTASSIUM CHLORIDE 20MEQ TAB,SA (DISPERSIBLE) Discontinued TAKE ONE TABLET BY MOUTH ONCE DAILY WITH FOOD 90 Dec 23, 2019 [id number] Nov 11, 2019 KESHAWN JOHNSON [facility] RANITIDINE HCL 150MG TAB Discontinued TAKE TWO TABLET S BY MOUTH AT BEDTIME FOR STOMACH 180 Dec 23, 2019 [id number] Jul 26, 2019 [facility] VENLAFAXINE HCL 37.5MG 24HR CAP,SA Active TAKE 3 CAPSULES BY MOUTH EVERY MORNING FOR MOOD 270 Apr 08, 2021 [id number] Apr 07, 2020 KENA RAGSDALE [facility] VENLAFAXINE HCL 37.5MG 24HR CAP,SA Discontinued TAKE 3 CAPSULES BY MOUTH EVERY MORNING FOR MOOD 270 Jun 01, 2020 [id number] Dec 29, 2019 KENA RAGSDALE [facility] VENLAFAXINE HCL 75MG 24HR CAP,SA Discontinued TAKE ON E CAPSULE BY MOUTH EVERY MORNING FOR MOOD 90 Apr 13, 2020 [id number] Apr 13, 2019 KESHAWN SHERMAN [facility] Problems (Conditions): All historical and current Section Date Range: From patient's date of to the date document was create d. This section includes a list of Problems (Conditions) know n to [facility] for the patient. It includes both active and inacti ve problems (conditions). The data comes from all [facility] treatment facilities. 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 [facility] Depression Active 94193130 KESHAWN SHERMAN Gastroesophageal reflux disease (SNOMED CT 616311224) Active [id number] Nov 30, 2009 Entered By: FRANCO HERNANDEZ Comment: hiatal herniaFeb 2009 Entered By: FRANCO HERNANDEZ Comment: schiatzski ringFeb 2010 Entered By: FRANCO HERNANDEZ Comment: omeprazole and Zantac.Jun 24, 2012 Entered By: FRANCO HERNANDEZ Comment: GERD KESHAWN SHERMAN H/O: surgery Active [id number] Aug 21, 2012 Entered By: FRANCO HERNANDEZ [...] HERNANDEZ History of polyp of colon Active 771810892 February 24, 2009 Entered By: FRANCO HERNANDEZ Comment: next colonoscopy 2008 Entered By: FRANCO HERNANDEZ Comment: tubulovilousNov 2011 Entered By: FRANCO HERNANDEZ Comment: AUG 20, 2012@14:08:51 Colonoscopy :Diverticulosis Aug 21, 2012 Entered By: FRANCO HERNANDEZ Comment: Repeat of Colonoscopy in 5 years 2017 Entered By: KESHAWN SHERMAN Comment: he refuses repeat colonoscopy KESHAWN SHERMAN Hyperlipidemia Active 83460655 KESHAWN SHERMAN Hypertension Active 36512475 [facility] SHER[facility] Hypotonic bladder Active 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 Dec 28, 2014 Entered By: KESHAWN SHERMAN Comment: Inability to void, was seen March 2013 with catheter placedDec 28, 2014 Entered By: KESHAWN SHERMAN Comment: Now has permanent suprapubic catheterDec 28, 2014 Entered By: KESHAWN SHERMAN Comment: D/c terazosin KESHAWN SHERMAN Impaired glucose tolerance Active 1950149 Dec 31, 2013 Entered By: KESHAWN SHERMAN Comment: A1c 5.9% Dec Entered By: KESHAWN SHERMAN Comment: 5.9% December Entered By: KESHAWN SHERMAN Comment: A1c 5.9% December Entered By: KESHAWN SHERMAN Comment: a1c 6.3% December 2018 KESHAWN SHERMAN Lumbago Active 701161515 KESHAWN SHERMAN Monoclonal gammopathy of uncertain significance Active 811026829 KESHAWN SHERMAN Obesity Active 278.00 Nov 27, [...] the Encounter. Date/Time Encounter Note(s) Provider Source Sep 24, 2019 01:12 PM ADMINISTRATIVE NOTE: LOCAL TITLE: ADMINISTRATIVE NOTE STANDARD TITLE: ADMINISTRATIVE NOTE DATE OF NOTE: SEP 24, 2019@13:12 ENTRY DATE: SEP 24, 2019@13:12:40 AUTHOR: LAURA PALACIOS EXP COSIGNER: URGENCY: STATUS: COMPLETED ADMINISTRATIVE NOTE Has ADDENDA [place] called requesting renewal on medication below and wants it mailed. made aware that this medication is no longer available and would probably be switched to something else: RANITIdine [High Alert Medicine] TAB 150MG TAKE TWO TABLETS BY MOUTH AT BEDTIME FOR STOMACH Quantity: 180 Refills: 3 /neeta PALACIOS [facility] Signed: 09/24/2019 13:13 Receipt Acknowledged By: 09/24/2019 14:48 /marilyn/ GENARO CHRIS RN, BSN, CRRN PRIMARY CARE REGISTERED NURSE-[facility] 09/24/2019 ADDENDUM STATUS: COMPLETED Dr. Sherman, please advise on RANITIdine replacement. /neeta RINCON RN, BSN, CRRN PRIMARY CARE REGISTERED NURSE-[facility] Signed: 09/24/2019 14:09 Receipt Acknowledged By: 09/24/2019 14:31 /marilyn/ KESHAWN VAUGHN MD PRIMARY CARE PHYSICIAN - [facility] 09/24/2019 ADDENDUM STATUS: COMPLETED order placed by provider /neeta RINCON RN, BSN, CRRN PRIMARY CARE REGISTERED NURSE-[facility] Signed: 09/24/2019 14:49 LAURA PALACIOS
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
--- OUTSIDE RECORDS SUMMARY | 2020-04-30 08:16 | XMS REPORT | Encounter Summary ---
Author Author Department of [facility] MARGARET pereira Department of [facility] Address [address] [place] [address] Phone Unavailable Care Team Providers Care Bacteriology Research Assistant Name Role Phone KESHAWN SHERMAN PCP Unavailable [...] PART A Aug 20, 2011 PART A [id number] [phone] GUILLERMOMARGARET PATIENT MEDICARE (WNR) MEDICARE (M) PART B Aug 20, 2011 PART B [id number] [phone] GUILLERMOMARGARET PATIENT MEDICARE (WNR) MEDICARE (M) PART A Aug 20, 2011 PART A [id number] [id number] [phone] GUILLERMOMARGARET PATIENT MEDICARE (WNR) MEDICARE (M) PART B Aug 20, 2011 PART B [id number] [id number] [phone] MARGARET LI PATIENT Selected Encounter This section includes the information on record at [place] for the Encounter. Date/Time Encounter Type Encounter Description Reason Provider Source Jul 07, 2019 12:43 PM Outpatient Encounter PRIMARY CARE/MEDICINE [facility] [place] [facility] Encounter Template Text not used by [facility] Assessments - Encounter Diagnoses No Data Provided for This Section Plan of Treatment: Future Appointments (+ 6 months) and Future Tests (+/- 45 day s) The Plan of Treatment section includes future care activities for the patient fr om all [place] treatment facilities. This section includes future appointments and fu ture orders which are active, pending or scheduled. Future Appointments This section includes appointments that were scheduled t o occur 6 months from the date of the Encounter, up to a maximum of 20 appointme nts. The data comes from all [facility]. Appointment Date/Time Appointment Type Appointment Facili ty Name Aug 31, 2019 02:30 PM AMBULATORY - PS[facility]IATRY [facility] Aug 31, 2019 02:35 PM [facility] Sep 21, 2019 02:30 PM AMBULATORY PS[facility]RY [facility] Sep 21, 2019 02:35 PM AMBULATORY - PSYCHIATRY [facility] Dec 17, 2019 02:00 PM AMBULATORY - MEDICINE [facility] Surgical Procedures: All associated to the encounter No Data Provided for This Section Lab Results: +/- 30 days of the encounter This section includes the Chemistry and Hematology Lab R esults on record with [place] for the patient. Radiology Reports and Pathology Report s are provided separately, in subsequent sections. Lab Results This section contains the Chemistry/Hematology Results ysabel t were resulted 30 days before or 30 days after the date of the Encounter. Date/Time Source Result Type Result - Unit Interpretation Reference Range Comment Jun 25, 2019 12:44 PM [facility] CBC Specimen Type: BLOOD Comment: See [...] g/dL 32-36 Jun 25, 2019 12:44 PM [facility] DIFFERENTIAL Specimen Type: BLOOD Comment: See manual differential. SEGS 80 % H 36-66 LYMPHS 12 % L 19-53 MONOS 5 % 0-9 EOSINO 3 % 0-8 NORMOCYTIC Yes PLT (ESTM) ADEQ NL Jun 25, 2019 12:44 PM [facility] RENAL PROFILE Specimen Type: SERUM No comment entered. GLUCOSE (FV) 119 mg/dL H 70-110 CHLORIDE (FV) 96 mmol/L L 98-107 SODIUM (FV) 130 mmol/L L 136-145 POTASSIUM (FV) 4.0 mmol/L 3.5-5.1 CO2 (FV) 24 mmol/L 21-32 UREA NITROGEN (FV) 22 mg/dL H 6-20 CALCIUM (FV) 8.6 mg/dL L 8.9-10.3 eGFR 49 CREATININE (FV) 1.43 mg/dL H .61-1.24 Jun 25, 2019 12:44 PM [facility] SERUM PEP(PRO. ELECTROPHO RSIS) Specimen Type: SERUM Comment: SPEP appears normal. No M spike seen. Reviewed by Alec Elias MD, [facility] ALPHA 1 GLOBULINS (G/DL) 0.2 g/dL 0.1-0 .4 ALPHA 2 GLOBULINS (G/DL) 0.8 g/dL 0.4-1 .0 BETA GLOBULINS (G/DL) 0.8 g/dL 0.5-1.1 GAMMA GLOBULINS (G/DL) 1.1 g/dL 0.5-1.7 P.E. TOTAL PROTEIN 6.8 g/dL 6.1-7.9 P.E. ALBUMIN 3.9 g/dL 3.2-5.1 M-SPIKE 0.0 g/dL NOT DETECTED Jun 25, 2019 12:44 PM [facility] KAPPA/LAMBDA LIGHT CHAINS , FREE, SERUM [...] and tobacco- related health factors from the [place] facility where the Encounter took place. Current Smoking Status This section includes the most current smoking, or tobacco -related health factor, from the [place] facility where the Encounter took place. Date/Time Current Smoking Status Comment Facility Nov 03, 2018 09:51 AM VA-TOBACCO NEVER USED [place] [facility] Tobacco Use History This section includes a history of the smoking, or tobacco -related health factors, that were collected on or before the date of the Encoun ter. The data comes from the [place] facility where the Encounter took place. Date/Time Smoking Status/Tobacco Use Comment [facility] it Nov 03, 2018 09:51 AM VA-TOBACCO NEVER USED [place] [facility] Oct 24, 2017 10:25 AM V16 LIFETIME NON-TOBACCO USER [place] Oct 24, 2017 10:25 AM V16 TOBACCO USE [place]CREEN [place] Dec 25, 2016 01:31 PM V16 LIFETIME NON-TOBACCO USER [place] Dec 25, 2016 01:31 PM V16 TOBACCO USE [place]CREEN [place] Jan 03, 2016 08:51 AM V16 LIFETIME NON-[place]BACCO USER [place] Jan 03, 2016 08:51 AM V16 TOBACCO USE [place]CRE[place] Dec 27, 2014 04:28 PM V16 LIFETIME NON-TOBACCO USER [place] Dec 27, 2014 04:28 PM V16 TOBACCO USE [place]CREEN [place] Dec 29, 2013 03:57 PM V16 LIFETIME NON-[place]BACCO USER [place] Dec 29, 2013 03:57 PM V16 TOBACCO USE [place]CRE[place] Jun 24, 2012 12:25 PM V16 LIFETIME NON-[place]BACCO USER [place] Jun 24, 2012 12:25 PM V16 TOBACCO USE [place]CREEN [place] Dec 18, 2010 01:24 PM V16 LIFETIME NON-[place]BACCO USER [place] Dec 18, 2010 01:24 PM V16 TOBACCO USE [place]CRE[place] Nov 30, 2009 01:24 PM V16 LIFETIME NON-TOBACCO USER [place] Nov 30, 2009 01:24 PM V16 TOBACCO USE [place]CREEN [place] Nov 25, 2008 01:22 PM V16 LIFETIME NON-[place]BACCO USER [place] Nov 25, 2008 01:22 PM V16 TOBACCO USE [place]CREEN [place] Jan 08, 2008 12:49 PM V16 LIFETIME [...] 11:04 AM LIFETIME NON-TOBACCO USER [place] Nov 20, 2000 01:09 PM LIFETIME NON-TOBACCO USER [facility] [place] Advance Directives: All historical and current No Data Provided for This Section Allergies and Adverse Reactions (ADRs): All historical and current Section Date Range: From patient's date of to the date document was create d. This section includes Allergies and Adverse Reactions (ADR s) on record with [facility] for the patient. The data comes from a ll [place] treatment facilities. It does not list Allergies/ADRs [...] Date Range: 1) prescriptions processed by a [place] pharmacy in the last 15 m [facility], and 2) all medications recorded in the [place] medical record as "non-VA medic ations". Pharmacy terms refer to VA pharmacy's work on prescriptions. VA patient s are advised to take their medications as instructed by their health care team. The data comes from all [place] treatment facilities. Glossary of Pharmacy Terms:Active = A prescription that can be filled at the local [place] pharmacy.Active: On Hold = An active prescription that will not be filled until pharmacy resolves the issue.Active: Susp = An active prescription that is not scheduled to be filled yet.Clinic Order = A medication received during a visit to a [place] clinic or emergency department (currently not available).Discontinued [...] may be a prescription from either the [place] or other providers that was filled outside the [place]. Or, it may be an over the [...] FOR BLOOD PRESSURE 90 Sep 24, 2020 [id number] Apr 07, 2020 V KESHAWN VAUGHN [facility] ATENOLOL 50MG/CHLORTHALIDONE 25MG TAB Discontinued TA KE 1 TABLET BY MOUTH EVERY MORNING FOR BLOOD PRESSURE 90 Oct 17, 2019 [id number] Jul 26, 2019 V KESHAWN VAUGHN [facility] ATORVASTATIN [place] 80MG TAB Active TAKE ONE-HALF T ABLET BY MOUTH AT BEDTIME FOR CHOLESTEROL - DO NOT TAKE WITH GRAPEFRUIT JUICE 45 Apr 11, 2021 [id number] Apr 10, 2020 KESHAWN SHERMAN [facility] ATORVASTATIN [place] 80MG TAB Discontinued TAKE ONE-HALF T ABLET BY MOUTH AT BEDTIME FOR CHOLESTEROL - DO NOT TAKE WITH GRAPEFRUIT JUICE 45 Dec 23, 2019 [id number] Oct 14, 2019 KESHAWN SHERMAN [facility] CARBOXYMETHYLCELLULOSE NA 0.5% SOLN,OPH INSTILL ONE DROP IN EACH EYE FOUR TIMES DAILY Feb 10, 2020 [id number] Feb 09, 2019 [facility] CARBOXYMETHYLCELLULOSE NA 1% GEL,OPH INS TILL ONE DROP TO EACH EYE TWICE A DAY Feb 10, 2020 [id number] Feb 09, 2019 [facility] CIPROFLOXACIN HCL 500MG TAB Active TAKE ONE TAB LET BY MOUTH TWICE A DAY - ANTIBIOTIC - TAKE UNTIL GONE *TAKE WITH FOOD AND AVOID TAKING WITH DAIRY OR PRODUCTS CONTAINING ALUMINUM, IRON, CALCIUM, OR MAGNESIUM* 14 J 2019 [id number] Apr 12, 2020 ALEXANDRA REYES [facility] FAMOTIDINE 40MG TAB Active TAKE ONE TABLET BY M OUTH ONCE DAILY FOR STOMACH/REFLUX 30 Apr 12, 2021 [id number] Apr 11, 2020 KESHAWN SHERMAN [facility] FAMOTIDINE 40MG TAB Discontinued TAKE ONE TABLET BY M OUTH ONCE DAILY FOR STOMACH/REFLUX 90 Sep 24, 2020 [id number] Dec [facility], [facility] FLUT[facility]ONE PROPIONATE 50MCG/SPRAY SOLN,NASAL,16GM Active USE 2 SPRAYS IN NOSE TWICE A DAY SHAKE GENTLY BEFORE USE 3 Apr 11, 2021 [id number] J 2019 KESHAWN SHERMAN [facility] FLUTICASONE PROPIONATE 50MCG/SPRAY SOLN,NASAL,16GM Discontin ued USE 2 SPRAYS IN NOSE TWICE A DAY SHAKE GENTLY BEFORE USE 3 Dec 23, 2019 [id number] Jul 26, 2019 KESHAWN SHERMAN [facility] IBUPROFEN 600MG TAB Non- [facility] TAKE ONE TABLET BY MOUTH THREE TIMES DAILY WITH MEALS NEEDED Non-VA Documented by: KESHAWN SHERMAN Docume nted at: [facility] [place] MAGNESIUM OXIDE 420MG TAB Active TAKE ONE TABLE T BY MOUTH TWICE A DAY TAKE WITH FOOD 100 Apr 11, 2021 [id number] Apr 10, 2020 [facility] MAGNESI[facility] OXIDE 420MG TAB Discontinued TAKE ONE TABLE T BY MOUTH TWICE A DAY TAKE WITH FOOD 100 Jan 14, 2020 [id number] Dec 29, 2019 KESHAWN SHERMAN [facility] OMEPRAZOLE 20MG CAP,EC Active TAKE 1 CAPSULE BY MOUTH ONCE DAILY FOR THE STOMACH 90 Dec 30, 2020 [id number] Apr 07, 2020 KESHAWN SHERMAN [facility] OMEPRAZOLE 20MG CAP,EC Discontinued TAKE 1 CAPSULE BY MOUTH ONCE DAILY FOR THE STOMACH 90 Dec 23, 2019 [id number] Oct 14, 2019 KESHAWN SHERMAN [facility] POTASSIUM CHLORIDE 20MEQ TAB,SA (DISPERSIBLE) Active TAKE ONE TABLET BY MOUTH ONCE DAILY WITH FOOD 90 Dec 30, 2020 [id number] Apr 19, 2020 HAMLET SHERMAN [facility] POTASSIUM CHLORIDE 20MEQ TAB,SA (DISPERSIBLE) Discontinued TAKE ONE TABLET BY MOUTH ONCE DAILY WITH FOOD 90 Dec 23, 2019 [id number] Nov 11, 2019 KESHAWN JOHNSON [facility] RANITIDINE HCL 150MG TAB Discontinued TAKE TWO TABLET S BY MOUTH AT BEDTIME FOR STOMACH 180 Dec 23, 2019 [id number] Jul 26, 2019 KESHAWN SHERMAN [place] VENLAFAXINE HCL 37.5MG 24HR CAP,SA Active TAKE 3 CAPSULES BY MOUTH EVERY MORNING FOR MOOD 270 Apr 08, 2021 [id number] Apr 07, 2020 KENA RAGSDALE [facility] VENLAFAXINE HCL 37.5MG 24HR CAP,SA Discontinued TAKE 3 CAPSULES BY MOUTH EVERY MORNING FOR MOOD 270 Jun 01, 2020 [id number] Dec 29, 2019 [facility] VENLAFAXINE HCL 75MG 24HR CAP,SA Discontinued TAKE ON E CAPSULE BY MOUTH EVERY MORNING FOR MOOD 90 Apr 13, 2020 [id number] Apr 13, 2019 KESHAWN SHERMAN [facility] Problems (Conditions): All historical and current Section Date Range: From patient's date of to the date document was create d. This section includes a list of Problems (Conditions) know n to [facility] for the patient. It includes both active and inacti ve problems (conditions). The data comes from all [place] treatment facilities. 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 [facility] Depression Active [id number] KESHAWN SHERMAN [place] Gastroesophageal reflux disease (SNOMED CT [id number]) Active [id number] Nov 30, 2009 Entered By: FRANCO HERNANDEZ Comment: hiatal herniaFeb 2009 Entered By: FRANCO HERNANDEZ Comment: schiatzski ringFeb 2010 Entered By: FRANCO HERNANDEZ Comment: omeprazole and Zantac.Jun 24, 2012 Entered By: FRANCO HERNANDEZ Comment: GERD KESHAWN SHERMAN H/O: surgery Active [id number] Aug 21, 2012 Entered By: FRANCO HERNANDEZ [...] HERNANDEZ History of polyp of colon Active [id number] February 24, 2009 Entered By: FRANCO HERNANDEZ Comment: next colonoscopy 2008 Entered By: FRANCO HERNANDEZ Comment: tubulovilousAug 21, 2012 Entered By: FRANCO HERNANDEZ Comment: AUG 20, 2012@14:08:51 Colonoscopy :Diverticulosis Aug 21, 2012 Entered By: FRANCO HERNANDEZ Comment: Repeat of Colonoscopy in 5 years 2017 Entered By: KESHAWN SHERMAN Comment: he refuses repeat colonoscopy KESHAWN SHERMAN Hyperlipidemia Active 28516190 KESHAWN SHERMAN Hypertension Active 16054599 KESHAWN SHERMAN 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 Dec 28, 2014 Entered By: KESHAWN SHERMAN Comment: Inability to void, was seen March 2013 with catheter placedDec 28, 2014 Entered By: KESHAWN SHERMAN Comment: Now has permanent suprapubic catheterDec 28, 2014 Entered By: KESHAWN SHERMAN Comment: D/c terazosin KESHAWN SHERMAN Impaired glucose tolerance Active 3676571 Dec 31, 2013 Entered By: KESHAWN SHERMAN Comment: A1c 5.9% Dec Entered By: KESHAWN SHERMAN Comment: 5.9% December Entered By: KESHAWN SHERMAN Comment: A1c 5.9% December Entered By: KESHAWN SHERMAN Comment: a1c 6.3% December 2018 KESHAWN SHERMAN Lumbago Active [id number] KESHAWN SHERMAN Monoclonal gammopathy of uncertain significance Active 366361930 KESHAWN SHERMAN Obesity Active 278.00 Nov 27, [...] Hypertension Inactive 401.9 Dec 25, 2017 Sep Entered By: FRANCO HERNANDEZ Comment: HTNSep 2011 Entered By: FRANCO HERNANDEZ Comment: low salt dietSep 2011 Entered By: FRANCO HERNANDEZ Comment: chlorthalidone 25 / atenolol 50Sep 2011 Entered By: FRANCO HERNANDEZ Comment: target BP < 130/80 FRANCO HERNANDEZ Internal hemorrhoids without mention of complication Inactive 4 55.0 Dec 25, 2017 FRANCO HERNANDEZ LUMBAGO/LOW BACK PAIN Inactive 724.2 Dec 25, 2017 DAJA LUZ [facility] [place] Noncompliance, Medication Regimen (ICD-9-CM V15.81) [...] the Encounter. Date/Time Encounter Note(s) Provider Source Jul 07, 2019 12:43 PM PHYSICIAN LETTERS: LOCAL TITLE: RESULTS LETTER STANDARD TITLE: PHYSICIAN LETTERS DATE OF NOTE: JUL 07, 2019@12:43 ENTRY DATE: JUL 07, 2019@12:44:03 AUTHOR: MICHELLE BOWENS EXP COSIGNER: URGENCY: STATUS: COMPLETED [facility] [address] [place] [id number] JUL 07, 2019 MARGARET LI [facility] [address] [place] [address] [place] [address] Dear [place] Patient: I am writing to inform you of the results of the test(s) you had done during or shortly after your last visit at the [place] [facility] [place]. The tests below were performed and are satisfactory unless otherwise noted. - Kidney Function - Other results: Test(s) performed: Immunoglobulin labs Comments: Renal and immunoglobulin labs are stable, normal spep. No change in treatment plan. Sincerely, MICHELLE BOWENS - LICENSED PRACTICAL NURSE MICHELLE BOWENS
--- OUTSIDE RECORDS SUMMARY | 2020-04-30 08:16 | XMS REPORT | Encounter Summary ---
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 Date/Time Encounter Type Encounter Description Reason Provider Source Aug 31, 2019 02:30 PM Outpatient Encounter [facility] IHE Encounter Template Text not used by VA Assessments - Encounter Diagnoses No Data Provided for This Section Plan of Treatment: Future Appointments (+ 6 months) and Future Tests (+/- 45 day s) The Plan of Treatment section includes future care activities for the patient fr om all PA treatment facilities. This section includes future appointments and fu ture orders which are active, pending or scheduled. Future Appointments This section includes appointments that were scheduled t o occur 6 months from the date of the Encounter, up to a maximum of 20 appointme nts. The data comes from all PA treatment facilities. Appointment Date/Time Appointment Type Appointment Facili ty Name Sep 21, 2019 02:30 PM AMBULATORY - PSYCHIATRY [facility] Sep 21, 2019 02:35 PM AMB[facility]ORY [facility] Dec 17, 2019 02:00 PM AMBULATORY - MEDICINE [facility] Jan 11, 2020 11:30 AM [facility] Jan 11, 2020 01:00 PM [facility] Surgical Procedures: All associated to the [...] Adverse Reactions (ADR s) on record with PA for the patient. The data comes from a ll PA treatment facilities. It does not list Allergies/ADRs that were removed or entered in error. Some allergies/ADRs may be reported in t he Immunization section. Allergen Event Date Event Type Reaction(s) Severity Source PENICILLIN Feb 07, 2000 Propensity to adverse reactions to drug (diso rder) UNIQUE [place] Medications: VA dispensed (-15 months) and Non-VA Documented (Obtained Outside [facility]) Section Date Range: 1) prescriptions processed by a VA pharmacy in the last 15 m [facility], and 2) all medications recorded in the PA medical record as "non-VA medic ations". Pharmacy terms refer to PA pharmacy's work on prescriptions. VA patient s are advised to take their medications as instructed by their health care team. The data comes from all PA treatment facilities. Glossary of Pharmacy Terms:Active = A prescription that can be filled at the local PA pharmacy.Active: On Hold = An active prescription that will not be filled until pharmacy resolves the issue.Active: Susp = An active prescription that is not scheduled to be filled yet.Clinic Order = A medication received during a visit to a PA clinic or emergency department (currently not available).Discontinued = A prescription stopped by a PA provider. It is no longer available to be filled. = A prescription which is too old to fill. This does not refer to the expiration date of the medication in the container. Non-VA = A medication that came from someplace other than a PA pharmacy. This may be a prescription from either the PA or other providers that was filled outside the PA. Or, it may be an over the [...] FOR BLOOD PRESSURE 90 Sep 24, 2020 [id number] Apr 07, 2020 V KESHAWN VAUGHN [facility] ATENOLOL 50MG/CHLORTHALIDONE 25MG TAB Discontinued TA KE 1 TABLET BY MOUTH EVERY MORNING FOR BLOOD PRESSURE 90 Oct 17, 2019 [id number] Jul 26, 2019 V KESHAWN VAUGHN [facility] ATORVASTATIN CA 80MG TAB Active TAKE ONE-HALF T ABLET BY MOUTH AT BEDTIME FOR CHOLESTEROL - DO NOT TAKE WITH GRAPEFRUIT JUICE 45 Apr 11, 2021 [id number] Apr 10, 2020 KESHAWN SHERMAN [facility] ATORVASTATIN CA 80MG TAB Discontinued TAKE ONE-HALF T ABLET BY MOUTH AT BEDTIME FOR CHOLESTEROL - DO NOT TAKE WITH GRAPEFRUIT JUICE 45 Dec 23, 2019 [id number] Oct 14, 2019 KESHAWN SHERMAN [facility] CARBOXYMETHYLCELLULOSE NA 0.5% SOLN,OPH INSTILL ONE DROP IN EACH EYE FOUR TIMES DAILY 15 Feb 10, 2020 [id number] Feb 09, 2019 MAGEN CORONA [facility] CARBOXYMETHYLCELLULOSE NA 1% GEL,OPH INS TILL ONE DROP TO EACH EYE TWICE A DAY 15 Feb 10, 2020 [id number] Feb 09, 2019 MAGEN COR[facility] CIPROFLOXACIN HCL 500MG TAB Active TAKE ONE TAB LET BY MOUTH TWICE A DAY - ANTIBIOTIC - TAKE UNTIL GONE *TAKE WITH FOOD AND AVOID TAKING WITH DAIRY OR PRODUCTS CONTAINING ALUMINUM, IRON, CALCIUM, OR MAGNESIUM* 14 J 2019 [id number] Apr 12, 2020 ALEXANDRA REYES [facility] FAMOTIDINE 40MG TAB Active TAKE ONE TABLET BY M OUTH ONCE DAILY FOR STOMACH/REFLUX 30 Apr 12, 2021 [id number] Apr 11, 2020 KESHAWN SHERMAN [facility] FAMOTIDINE 40MG TAB Discontinued TAKE ONE TABLET BY M OUTH ONCE DAILY FOR STOMACH/REFLUX 90 Sep 24, 2020 [id number] Dec 29, 2019 KESHAWN SHERMAN [facility] FLUTICASONE PROPIONATE 50MCG/SPRAY SOLN,NASAL,16GM Active USE 2 SPRAYS IN NOSE TWICE A DAY SHAKE GENTLY BEFORE USE 3 Apr 11, 2021 [id number] J 2019 KESHAWN SHERMAN [facility] FLUTICASONE PROPIONATE 50MCG/SPRAY SOLN,NASAL,16GM Discontin ued USE 2 SPRAYS IN NOSE TWICE A DAY SHAKE GENTLY BEFORE USE 3 Dec 23, 2019 [id number] Jul 26, 2019 KESHAWN SHERMAN [facility] IBUPROFEN 600MG TAB Non- VA TAKE ONE TABLET BY MOUTH THREE TIMES DAILY WITH MEALS NEEDED Non-VA Documented by: KESHAWN SHERMAN Docume nted at: [place]QUE [place] MAGNESIUM OXIDE 420MG TAB Active TAKE ONE TABLE T BY MOUTH TWICE A DAY TAKE WITH FOOD 100 Apr 11, 2021 [id number] Apr 10, 2020 KESHAWN SHERMAN [facility] MAGNESIUM OXIDE 420MG TAB Discontinued TAKE ONE TABLE T BY MOUTH TWICE A DAY TAKE WITH FOOD 100 Jan 14, 2020 [id number] Dec 29, 2019 KESHAWN SHERMAN [facility] OMEPRAZOLE 20MG CAP,EC Active TAKE 1 CAPSULE BY MOUTH ONCE DAILY FOR THE STOMACH 90 Dec 30, 2020 [id number] Apr 07, 2020 KESHAWN SHERMAN [facility] OMEPRAZOLE 20MG CAP,EC Discontinued TAKE 1 CAPSULE BY MOUTH ONCE DAILY FOR THE STOMACH 90 Dec 23, 2019 [id number] Oct 14, 2019 KESHAWN SHERMAN [facility] POTASSIUM CHLORIDE 20MEQ TAB,SA (DISPERSIBLE) Active TAKE ONE TABLET BY MOUTH ONCE DAILY WITH FOOD 90 Dec 30, 2020 [id number] Apr 19, 2020 HAMLET SHERMAN [facility] POTASSIUM CHLORIDE 20MEQ TAB,SA (DISPERSIBLE) Discontinued TAKE ONE TABLET BY MOUTH ONCE DAILY WITH FOOD 90 Dec 23, 2019 [id number] Nov 11, 2019 KESHAWN JOHNSON [facility] RANITIDINE HCL 150MG TAB Discontinued TAKE TWO TABLET S BY MOUTH AT BEDTIME FOR STOMACH 180 Dec 23, 2019 [id number] Jul 26, 2019 KESHAWN SHERMAN [place] VENLAFAXINE HCL 37.5MG 24HR CAP,SA Active TAKE 3 CAPSULES BY MOUTH EVERY MORNING FOR MOOD 270 Apr 08, 2021 [id number] Apr 07, 2020 KENA GLASGOW [facility] VENLAFAXINE HCL 37.5MG 24HR CAP,SA Discontinued TAKE 3 CAPSULES BY MOUTH EVERY MORNING FOR MOOD 270 Jun 01, 2020 [id number] Dec 29, 2019 KENA GLASGOW [facility] VENLAFAXINE HCL 75MG 24HR CAP,SA Discontinued TAKE ON E CAPSULE BY MOUTH EVERY MORNING FOR MOOD 90 Apr 13, 2020 [id number] Apr 13, 2019 KESHAWN SHERMAN [facility] Problems (Conditions): All historical and current Section Date Range: From patient's date of to the date document was create d. This section includes a list of Problems (Conditions) know n to PA for the patient. It includes both active and inacti ve problems (conditions). The data comes from all PA treatment facilities. Problem Status Problem Code Date of Onset Date of Resolution Comm ent(s) Provider Source Allergic rhinitis * (ICD-9-CM 477.9) Active 477.9 STEPHEN BARAJAS Chronic kidney disease stage 3 Active 175971571 KESHAWN SHERMAN Corneal epithelial dystrophy Active 818374696 [facility]ILLIAMS [facility] Depression Active 31852426 KESHAWN SHERMAN Gastroesophageal reflux disease (SNOMED CT 493987928) Active 9505 19344 Nov 30, 2009 Entered By: FRANCO HERNANDEZ Comment: hiatal herniaNov 30, 2009 Entered By: FRANCO HERNANDEZ Comment: schiatzski ringFeb 2010 Entered By: FRANCO HERNANDEZ Comment: omeprazole and Zantac.Jun 24, 2012 Entered By: FRANCO HERNANDEZ Comment: GERD KESHAWN SHERMAN H/O: surgery Active 002567415 Aug 21, 2012 Entered By: FRANCO HERNANDEZ [...] HERNANDEZ History of polyp of colon Active 089480695 February 24, 2009 Entered By: FRANCO HERNANDEZ Comment: next colonoscopy 2008 Entered By: FRANCO HERNANDEZ Comment: tubulovilousNov 2011 Entered By: FRANCO HERNANDEZ Comment: AUG 20, 2012@14:08:51 Colonoscopy :Diverticulosis Aug 21, 2012 Entered By: FRANCO HERNANDEZ Comment: Repeat of Colonoscopy in 5 years 2017 Entered By: KESHAWN SHERMAN Comment: he refuses repeat colonoscopy KESHAWN SHERMAN Hyperlipidemia Active 01307369 KESHAWN SHERMAN Hypertension Active 12489477 KESHAWN SHERMAN Hypotonic bladder Active 394368885 Dec 28, 2014 Entered By: KESHAWN SHERMAN Comment: Inability to void, was seen March 2013 with catheter placedDec 28, 2014 Entered By: KESHAWN SHERMAN Comment: Now has permanent suprapubic catheterDec 28, 2014 Entered By: KESHAWN SHERMAN Comment: D/c terazosin KESHAWN SHERMAN Impaired glucose tolerance Active 8312525 Dec 31, 2013 Entered By: KESHAWN SHERMAN Comment: A1c 5.9% Dec Entered By: KESHAWN SHERMAN Comment: 5.9% December Entered By: KESHAWN SHERMAN Comment: A1c 5.9% December Entered By: KESHAWN SHERMAN Comment: a1c 6.3% December 2018 KESHAWN SHERMAN Lumbago Active 113498021 KESHAWN SHERMAN Monoclonal gammopathy of uncertain significance Active 852491586 KESHAWN SHERMAN Obesity Active 278.00 Nov 27, [...] HERNANDEZ Comment: target BP < 130/80 FRANCO HRENANDEZ Internal hemorrhoids without mention of complication Inactive [...] the Encounter. Date/Time Encounter Note(s) Provider Source Aug 31, 2019 03:04 PM ADMINISTRATIVE NOTE: LOCAL TITLE: SCHEDULING NOTE STANDARD TITLE: ADMINISTRATIVE NOTE DATE OF NOTE: AUG 31, 2019@15:04 ENTRY DATE: AUG 31, 2019@15:04:52 AUTHOR: BHAVNA OTERO EXP COSIGNER: URGENCY: STATUS: COMPLETED SCHEDULING NOTE Has ADDENDA Per Order dated: MARGARET Dominguez no showed appt 08/31/19 with Kena Glasgow called no answer left vm sent letter and made tickler to f/u Author's phone extension: [phone] /marilyn/ BHAVNA OTERO [facility]LINDSEY Signed: 08/31/2019 15:07 09/01/2019 ADDENDUM STATUS: COMPLETED second attempt no answer left ct /neeta OTERO [facility]JEFRYIN Signed: 09/01/2019 13:25 09/03/2019 ADDENDUM STATUS: COMPLETED third attempt no answer left ct /marilyn/ BHAVNA OTERO [facility]INDSEY Signed: 09/03/2019 12:25 BHAVNA OTERO [facility]
--- OUTSIDE RECORDS SUMMARY | 2020-04-30 08:16 | XMS REPORT | Encounter Summary ---
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 Date/Time Encounter Type Encounter Description Reason Provider Source Sep 21, 2019 02:30 PM Outpatient Encounter [facility] - IND ICD-10-CM F33.9 Major depressive disorder, recurrent, unspecified with Provider Comments: Depression ([facility] [id number]) MARQUIS RACHEL [facility] IHE Encounter Template Text not used by [place] Assessments - Encounter Diagnoses This section includes the primary and secondary diag noses documented for the Encounter. Date/Time Primary/Secondary Diagnosis Diagnosis Name Provider Source Sep 21, 2019 02:37 PM PRIMARY Major depressive disorder, recurrent, unspecified MARQUIS RACHEL [facility] Plan of Treatment: Future Appointments (+ 6 months) and Future Tests (+/- 45 day s) The Plan of Treatment section includes future care activities for the patient fr om all [place] treatment facilities. This section includes future appointments and fu ture orders which are active, pending or scheduled. Future Appointments This section includes appointments that were scheduled t o occur 6 months from the date of the Encounter, up to a maximum of 20 appointme nts. The data comes from all [facility] facilities. Appointment Date/Time Appointment Type Appointment Facili ty Name Dec 17, 2019 02:00 PM AMBULATORY - MEDICINE [facility] Jan 11, 2020 11:30 AM AMBULATORY - MEDICINE [facility] Jan 11, 2020 01:00 PM AMBULATORY - MEDICINE [facility] Surgical Procedures: All associated to the [...] in Height Weight Body Mass Index Source Sep 21, 2019 02:36 PM 0 [facility] Sep 21, 2019 02:34 PM 98 F 81 /min 128/76 mm[Hg] 18 /min 99 % 0 254 lb 38 [facility] Immunizations: All administered on the encounter date [...] patient. The data comes from a ll [place] treatment facilities. It does not list Allergies/ADRs [...] VA pharmacy in the last 15 m [facility], and 2) all medications recorded in the [place] medical record as "non-VA medic ations". Pharmacy terms refer to VA pharmacy's work on prescriptions. VA patient s are advised to take their medications as instructed by their health care team. The data comes from all [place] treatment facilities. Glossary of Pharmacy Terms:Active = A prescription that can be filled at the local [place] pharmacy.Active: On Hold = An active prescription that will not be filled until pharmacy resolves the issue.Active: Susp = An active prescription that is not scheduled to be filled yet.Clinic Order = A medication received during a visit to a [place] clinic or emergency department (currently not available).Discontinued [...] may be a prescription from either the [place] or other providers that was filled outside the [place]. Or, it may be an over the [...] FOR BLOOD PRESSURE 90 Sep 24, 2020 [id number] Apr 07, 2020 V KESHAWN VAU[facility]N [facility] ATENOLOL 50MG/CHLORTHALIDONE 25MG TAB Discontinued TA KE 1 TABLET BY MOUTH EVERY MORNING FOR BLOOD PRESSURE 90 Oct 17, 2019 [id number] Jul 26, 2019 V KESHAWN VAUGHN [facility] ATORVASTATIN CA 80MG TAB Active TAKE ONE-HALF T ABLET BY MOUTH AT BEDTIME FOR CHOLESTEROL - DO NOT TAKE WITH GRAPEFRUIT JUICE 45 Apr 11, 2021 [id number] Apr 10, 2020 KESHAWN SHERMAN [facility] ATORVASTATIN [place] 80MG TAB Discontinued TAKE ONE-HALF T ABLET BY MOUTH AT BEDTIME FOR CHOLESTEROL - DO NOT TAKE WITH GRAPEFRUIT JUICE 45 Dec 23, 2019 [id number] Oct 14, 2019 KESHAWN SHERMAN [facility] CARBOXYMETHYLCELLULOSE NA 0.5% SOLN,OPH INSTILL ONE DROP IN EACH EYE FOUR TIMES DAILY 15 Feb 10, 2020 [id number] Feb 09, 2019 MAGEN [facility] CARBOXYMETHYLCELLULOSE NA 1% GEL,OPH INS TILL ONE DROP TO EACH EYE TWICE A DAY 15 Feb 10, 2020 [id number] Feb 09, 2019 MAGEN CORONA [facility] CIPROFLOXACIN HCL 500MG TAB Active TAKE ONE TAB LET BY MOUTH TWICE A DAY - ANTIBIOTIC - TAKE UNTIL GONE *TAKE WITH FOOD AND AVOID TAKING WITH DAIRY OR PRODUCTS CONTAINING ALUMINUM, IRON, CALCIUM, OR MAGNESIUM* 14 J 2019 [id number] Apr 12, 2020 ALEXANDRA REYES [facility] FAMOTIDINE 40MG TAB Active TAKE ONE TABLET BY M OUTH ONCE DAILY FOR STOMACH/REFLUX 30 Apr 12, 2021 [id number] Apr 11, 2020 KESHAWN SHERMAN [facility] FAMOTIDINE 40MG TAB Discontinued TAKE ONE TABLET BY M OUTH ONCE DAILY FOR STOMACH/REFLUX 90 Sep 24, 2020 [id number] Dec 29, 2019 KESHAWN SHERMAN [facility] FLUTICASONE PROPIONATE 50MCG/SPRAY SOLN,NASAL,16GM Active USE 2 SPRAYS IN NOSE TWICE A DAY SHAKE GENTLY BEFORE USE 3 Apr 11, 2021 [id number] J 2019 KESHAWN SHERMAN [facility] FLUTICASONE PROPIONATE 50MCG/SPRAY SOLN,NASAL,16GM Discontin ued USE 2 SPRAYS IN NOSE TWICE A DAY SHAKE GENTLY BEFORE USE 3 Dec 23, 2019 [id number] Jul 26, 2019 KESHAWN SHERMAN [facility] IBUPROFEN 600MG TAB Non- VA TAKE ONE TABLET BY MOUTH THREE TIMES DAILY WITH MEALS NEEDED Non-VA Documented by: KESHAWN SHERMAN nted at: UNIQUE [place] MAGNESIUM OXIDE 420MG TAB Active TAKE ONE TABLE T BY MOUTH TWICE A DAY TAKE WITH FOOD 100 Apr 11, 2021 [id number] Apr 10, 2020 KESHAWN SHERMAN [facility] MAGNESIUM OXIDE 420MG TAB Discontinued TAKE ONE TABLE T BY MOUTH TWICE A DAY TAKE WITH FOOD 100 Jan 14, 2020 [id number] Dec 29, 2019 [facility] O[facility]MG CAP,EC Active TAKE 1 CAPSULE BY MOUTH ONCE DAILY FOR THE STOMACH 90 Dec 30, 2020 [id number] Apr 07, 2020 [facility] OMEPR[facility]LE 20MG CAP,EC Discontinued TAKE 1 CAPSULE BY MOUTH ONCE DAILY FOR THE STOMACH 90 Dec 23, 2019 [id number] Oct 14, 2019 KESHAWN SHERMAN [facility] POTASSIUM CHLORIDE 20MEQ TAB,SA (DISPERSIBLE) Active TAKE ONE TABLET BY MOUTH ONCE DAILY WITH FOOD 90 Dec 30, 2020 [id number] Apr 19, 2020 HAMLET SHERMAN [facility] POTASSIUM CHLORIDE 20MEQ TAB,SA (DISPERSIBLE) Discontinued TAKE ONE TABLET BY MOUTH ONCE DAILY WITH FOOD 90 Dec 23, 2019 [id number] Nov 11, 2019 KESHAWN JOHNSON [facility] RANITIDINE HCL 150MG TAB Discontinued TAKE TWO TABLET S BY MOUTH AT BEDTIME FOR STOMACH 180 Dec 23, 2019 [id number] Jul 26, 2019 [facility] VENLAFAXINE HCL 37.5MG 24HR CAP,SA Active TAKE 3 CAPSULES BY MOUTH EVERY MORNING FOR MOOD 270 Apr 08, 2021 [id number] Apr 07, 2020 ZARI GLASGOW [facility] VENLAFAXINE HCL 37.5MG 24HR CAP,SA Discontinued TAKE 3 CAPSULES BY MOUTH EVERY MORNING FOR MOOD 270 Jun 01, 2020 [id number] Dec 29, 2019 ZARI GLASGOW [facility] VENLAFAXINE HCL 75MG 24HR CAP,SA Discontinued TAKE ON E CAPSULE BY MOUTH EVERY MORNING FOR MOOD 90 Apr 13, 2020 [id number] Apr 13, 2019 KESHAWN SHERMAN [facility] Problems (Conditions): All historical and current Section Date Range: From patient's date of to the date document was create d. This section includes a list of Problems (Conditions) know n to [place] for the patient. It includes both active and inacti ve problems (conditions). The data comes from all [place] treatment facilities. Problem Status Problem Code Date of Onset Date of Resolution Comm ent(s) Provider Source Allergic rhinitis * (ICD-9-CM 477.9) Active 477.9 STEPHEN BARAJAS Chronic kidney disease stage 3 Active 514382316 KESHAWN SHERMAN Corneal epithelial dystrophy Active 324489112 [facility] Depression Active 66411137 KESHAWN SHERMAN Gastroesophageal reflux disease (SNOMED CT 395576659) Active 2355 33436 Nov 30, 2009 Entered By: FRANCO HERNANDEZ Comment: hiatal herniaNov 30, 2009 Entered By: FRANCO HERNANDEZ Comment: schiatzski ringFeb 2010 Entered By: FRANCO HERNANDEZ Comment: omeprazole and Zantac.Jun 24, 2012 Entered By: FRANCO HERNANDEZ Comment: GERD KESHAWN SHERMAN H/O: surgery Active 048344229 Aug 21, 2012 Entered By: FRANCO HERNANDEZ [...] HERNANDEZ History of polyp of colon Active 016873604 February 24, 2009 Entered By: FRANCO HERNANDEZ Comment: next colonoscopy 2008 Entered By: FRANCO HERNANDEZ Comment: tubulovilousNov 2011 Entered By: FRANCO HERNANDEZ Comment: AUG 20, 2012@14:08:51 Colonoscopy :Diverticulosis Aug 21, 2012 Entered By: FRANCO HERNANDEZ Comment: Repeat of Colonoscopy in 5 years 2017 Entered By: KESHAWN SHERMAN Comment: he refuses repeat colonoscopy KESHAWN SHERMAN Hyperlipidemia Active 85036463 KESHAWN SHERMAN Hypertension Active 61804638 [facility] SH[facility] Hypotonic bladder Active 746008174 Dec 28, 2014 Entered By: KESHAWN SHERMAN Comment: Inability to void, was seen March 2013 with catheter placedDec 28, 2014 Entered By: KESHAWN SHERMAN Comment: Now has permanent suprapubic catheterDec 28, 2014 Entered By: KESHAWN SHERMAN Comment: D/c terazosin KESHAWN SHERMAN Impaired glucose tolerance Active 7558028 Dec 31, 2013 Entered By: KESHAWN SHERMAN Comment: A1c 5.9% Dec Entered By: KESHAWN SHERMAN Comment: 5.9% December Entered By: KESHAWN SHERMAN Comment: A1c 5.9% December Entered By: KESHAWN SHERMAN Comment: a1c 6.3% December 2018 KESHAWN SHERMAN Lumbago Active 641277276 KESHAWN SHERMAN Monoclonal gammopathy of uncertain significance Active 813225343 KESHAWN SHERMAN Obesity Active 278.00 Nov 27, [...] Inactive 272.0 Dec 25, 2017 Se p , 2011 Entered By: FRANCO HERNANDEZ Comment: low [...] Encounter Note(s) Provider Source Sep 21, 2019 02:35 PM MENTAL HEALTH NURSING NOTE: LOCAL TITLE: MENTAL HEALTH NURSE INTAKE STANDARD TITLE: MENTAL HEALTH NURSING NOTE DATE OF NOTE: SEP 21, 2019@14:35 ENTRY DATE: SEP 21, 2019@14:35:17 AUTHOR: MARQUIS RACHEL EXP COSIGNER: URGENCY: STATUS: COMPLETED SUBJECTIVE: presents today for f/u appt with Zari Glasgow APN. is agreeable to [facility] today. Denies SI/HI. States "today is a good day" when asked how his depression is. He is alert and oriented x 3. BP: 128/76 (09/21/2019 14:34) Pain: 0 (09/21/2019 14:34) Height: 69 in [175.3 cm] (12/22/2018 13:07) Weight: 254 lb [115.5 kg] (09/21/2019 14:34) Pulse: 81 (09/21/2019 14:34) Respiration: 18 (09/21/2019 14:34) Temperature: 98 F [36.7 C] (09/21/2019 14:34) ALLERGIES:PENICILLIN DEPRESSION SCREEN: (x)Positive ()Negative If positive, ()New/Untreated Depression SUICIDAL: (x)No ()Yes If Yes, does patient have a plan? ()Yes ()No PAIN: [x]No []Yes []Chronic or []Acute; Present Pain Level: 0 (09/21/2019 14:34) Comfort Level Scale (0-10): TOBACCO: (x)No ()Yes-Counseled for cessation. Daily Aspirin (Nurse): Patient does not take daily aspirin. Pain Evaluation (Nurse): PAIN EVALUATION: Clinic Location: Mental Health Patient reports no pain present today. Pain Score: 0 /es/ MARQUIS RACHEL RN PRIMARY CARE REGISTERED NURSE-LINDSEY Signed: 09/21/2019 14:37 MARQUIS RACHEL [facility]
--- OUTSIDE RECORDS SUMMARY | 2020-04-30 08:16 | XMS REPORT | Encounter Summary ---
Author Author Department of [facility] MARGARET pereira Department of [facility] Address [address] [place] [address] Phone Unavailable Care Team Providers Care Loader Magazine Grinder Name Role Phone KESHAWN SHERMAN PCP Unavailable [...] PART A Aug 20, 2011 PART A [id number] [phone] GUILLERMOMARGARET PATIENT MEDICARE (WNR) MEDICARE (M) PART B Aug 20, 2011 PART B [id number] [phone] GUILLERMOMARGARET PATIENT MEDICARE (WNR) MEDICARE (M) PART A Aug 20, 2011 PART A [id number] [phone] MARGARET LI PATIENT MEDICARE (WNR) MEDICARE (M) PART B Aug 20, 2011 PART B [id number] [phone] MARGARET LI PATIENT Selected Encounter This section includes the information on record at [place] for the Encounter. Date/Time Encounter Type Encounter Description Reason Provider Source Oct 23, 2019 11:04 AM Outpatient Encounter PRIMARY CARE/MEDICINE UNIQUE [place] [facility] Encounter Template Text not used by [facility] Assessments - Encounter Diagnoses No Data Provided for This Section Plan of Treatment: Future Appointments (+ 6 months) and Future Tests (+/- 45 day s) The Plan of Treatment section includes future care activities for the patient fr om all [place] treatment [facility]. This section includes future appointments and fu ture orders which are active, pending or scheduled. Future Appointments This section includes appointments that were scheduled t o occur 6 months from the date of the Encounter, up to a maximum of 20 appointme nts. The data comes from all [facility]. Appointment Date/Time Appointment Type Appointment Facili ty Name Dec 17, 2019 02:00 PM AMBULATORY - MEDICINE [facility] Jan 11, 2020 11:30 AM [facility] [place] [facility] [facility] [place] Jan 11, 2020 01:00 PM [facility] Mar 31, 2020 01:00 PM [facility] [place] [facility] Apr 05, 2020 07:30 AM [place] - N[place] [facility] Apr 05, 2020 08:30 AM AMBULATORY - NONE [facility] Apr 12, 2020 09:30 AM [facility] Surgical Procedures: All associated to the encounter [...] and tobacco- related health factors from the [place] facility where the Encounter took place. Current Smoking Status This section includes the most current smoking, or tobacco -related health factor, from the [place] facility where the Encounter took place. Date/Time Current Smoking Status Comment Facility Nov 03, 2018 09:51 AM [place]-TOBACCO NEVER USED [place] [facility] Tobacco Use History This section includes a history of the smoking, or tobacco -related health factors, that were collected on or before the date of the Encoun ter. The data comes from the [place] facility where the Encounter took place. Date/Time Smoking Status/Tobacco Use Comment [facility] Nov 03, 2018 09:51 AM [place]-TO[place] NEVER USED [place] [facility] Oct 24, 2017 10:25 AM V16 LIFETIME NON-TOBACCO USER [place] [place] Oct 24, 2017 10:25 AM V16 TOBACCO USE SCREEN [place] Dec 25, 2016 01:31 PM V16 LIFETIME NON-TOBACCO USER [place] Dec 25, 2016 01:31 PM V16 TOBACCO USE SCREEN [place] Jan 03, 2016 08:51 AM V16 LIFETIME NON-TOBACCO USER [place] Jan 03, 2016 08:51 AM V16 TOBACCO USE SCREEN [place] Dec 27, 2014 04:28 PM V16 LIFETIME NON-TOBACCO USER [place] Dec 27, 2014 04:28 PM V16 TOBACCO USE [place]CREEN [place] Dec 29, 2013 03:57 PM V16 LIFETIME NON-TOBACCO USER [place] Dec 29, 2013 03:57 PM V16 TOBACCO USE [place]CREEN [place] Jun 24, 2012 12:25 PM V16 LIFETIME NON-TOBACCO USER [place] Jun 24, 2012 12:25 PM V16 TOBACCO USE [place]CREEN [place] Dec 18, 2010 01:24 PM V16 LIFETIME NON-TOBACCO USER [place] Dec 18, 2010 01:24 PM [...] V16 TOBACCO USE SCREEN [place] Jan 08, 2008 12:49 PM V16 LIFETIME NON-TOBACCO USER [place] Jan 08, 2008 12:49 PM V16 TOBACCO USE SCREEN [place] Apr 28, 2007 01:53 PM V16 TOBACCO CESSATION >7 YEARS [place] Apr 28, 2007 01:53 PM V16 TOBACCO USE SCREEN [place] Sep 29, 2006 01:44 PM V16 TOBACCO CESSATION > 12 MONTHS [place] [place] Sep 29, 2006 01:44 PM V16 TOBACCO USE SCREEN [place] [place] May 21, 2001 11:04 AM LIFETIME NON-TOBACCO USER [place] LEATHA [place] Nov 20, 2000 01:09 PM LIFETIME NON-TOBACCO USER [facility] [place] Advance Directives: All historical and current No Data Provided for This Section Allergies and Adverse Reactions (ADRs): All historical and current Section Date Range: From patient's date of to the date document was create d. This section includes Allergies and Adverse Reactions (ADR s) on record with [place] for the patient. The data comes from a ll [place] treatment facilities. It does not list Allergies/ADRs [...] Date Range: 1) prescriptions processed by a [place] pharmacy in the last 15 m [facility] [place], and 2) all medications recorded in the [place] medical record as "non-VA medic ations". Pharmacy terms refer to [place] pharmacy's work on prescriptions. [place] patient s are advised to take their medications as instructed by their health care team. The data comes from all [place] treatment facilities. Glossary of Pharmacy Terms:Active = A prescription that can be filled at the local [place] pharmacy.Active: On Hold = An active prescription that will not be filled until pharmacy resolves the issue.Active: Susp = An active prescription that is not scheduled to be filled yet.Clinic Order = A medication received during a visit to a [place] clinic or emergency department (currently not available).Discontinued [...] may be a prescription from either the [place] or other providers that was filled outside the [place]. Or, it may be an over the [...] FOR BLOOD PRESSURE 90 Sep 24, 2020 [id number] Apr 07, 2020 KESHAWN JOHNSON [facility] ATENOLOL 50MG/CHLORTHALIDONE 25MG TAB Discontinued TA KE 1 TABLET BY MOUTH EVERY MORNING FOR BLOOD PRESSURE 90 Oct 17, 2019 [id number] Jul 26, 2019 KESHAWN JOHNSON [facility] ATORVASTATIN CA 80MG TAB Active TAKE ONE-HALF T ABLET BY MOUTH AT BEDTIME FOR CHOLESTEROL - DO NOT TAKE WITH GRAPEFRUIT JUICE 45 Apr 11, 2021 [id number] Apr 10, 2020 KESHAWN SHERMAN [facility] ATORVASTATIN CA 80MG TAB Discontinued TAKE ONE-HALF T ABLET BY MOUTH AT BEDTIME FOR CHOLESTEROL - DO NOT TAKE WITH GRAPEFRUIT JUICE 45 Dec 23, 2019 [id number] Oct 14, 2019 KESHAWN SHERMAN [facility] CARBOXYMETHYLCELLULOSE NA 0.5% SOLN,OPH INSTILL ONE DROP IN EACH EYE FOUR TIMES DAILY 15 Feb 10, 2020 [id number] Feb 09, 2019 MAGEN CORONA [facility] CARBOXYMETHYLCELLULOSE NA 1% GEL,OPH INS TILL ONE DROP TO EACH EYE TWICE A DAY 15 Feb 10, 2020 [id number] Feb 09, 2019 MAGEN CORONA [facility] CIPROFLOXACIN HCL 500MG TAB Active TAKE ONE TAB LET BY MOUTH TWICE A DAY - ANTIBIOTIC - TAKE UNTIL GONE *TAKE WITH FOOD AND AVOID TAKING WITH DAIRY OR PRODUCTS CONTAINING ALUMINUM, IRON, CALCIUM, OR MAGNESIUM* 14 J 2019 [id number] Apr 12, 2020 ALEXANDRA REYES [facility] FAMOTIDINE 40MG TAB Active TAKE ONE TABLET BY M OUTH ONCE DAILY FOR STOMACH/REFLUX 30 Apr 12, 2021 [id number] Apr 11, 2020 KESHAWN SHERMAN [facility] FAMOTIDINE 40MG TAB Discontinued TAKE ONE TABLET BY M OUTH ONCE DAILY FOR STOMACH/REFLUX 90 Sep 24, 2020 [id number] Dec 29, 2019 KESHAWN SHERMAN [facility] FLUTICASONE PROPIONATE 50MCG/SPRAY SOLN,NASAL,16GM Active USE 2 SPRAYS IN NOSE TWICE A DAY SHAKE GENTLY BEFORE USE 3 Apr 11, 2021 [id number] J 2019 KESHAWN SHERMAN [facility] FLUTICASONE PROPIONATE 50MCG/SPRAY SOLN,NASAL,16GM Discontin ued USE 2 SPRAYS IN NOSE TWICE A DAY SHAKE GENTLY BEFORE USE 3 Dec 23, 2019 [id number] Jul 26, 2019 KESHAWN SHERMAN [facility] IBUPROFEN 600MG TAB Non- [facility] TAKE ONE TABLET BY MOUTH THREE TIMES DAILY WITH MEALS NEEDED Non-VA Documented by: KESHAWN SHERMAN [facility] n[facility] MAGNESIUM OXIDE 420MG TAB Active TAKE ONE TABLE T BY MOUTH TWICE A DAY TAKE WITH FOOD 100 Apr 11, 2021 [id number] Apr 10, 2020 [facility] MAGNESI[facility]XIDE 420MG TAB Discontinued TAKE ONE TABLE T BY MOUTH TWICE A DAY TAKE WITH FOOD 100 Jan 14, 2020 [id number] Dec 29, 2019 KESHAWN SHERMAN [facility] OMEPRAZOLE 20MG CAP,EC Active TAKE 1 CAPSULE BY MOUTH ONCE DAILY FOR THE STOMACH 90 Dec 30, 2020 [id number] Apr 07, 2020 [facility] OME[facility]LE 20MG CAP,EC Discontinued TAKE 1 CAPSULE BY MOUTH ONCE DAILY FOR THE STOMACH 90 Dec 23, 2019 [id number] Oct 14, 2019 KESHAWN SHERMAN [facility] POTASSIUM CHLORIDE 20MEQ TAB,SA (DISPERSIBLE) Active TAKE ONE TABLET BY MOUTH ONCE DAILY WITH FOOD 90 Dec 30, 2020 [id number] Apr 19, 2020 [facility] POTASSIUM CHLORIDE 20MEQ TAB,SA (DISPERSIBLE) Discontinued TAKE ONE TABLET BY MOUTH ONCE DAILY WITH FOOD 90 Dec 23, 2019 [id number] Nov 11, 2019 KESHAWN JOHNSON [facility] RANITIDINE HCL 150MG TAB Discontinued TAKE TWO TABLET S BY MOUTH AT BEDTIME FOR STOMACH 180 Dec 23, 2019 [id number] Jul 26, 2019 KESHAWN SHERMAN [facility] VENLAFAXINE HCL 37.5MG 24HR CAP,SA Active TAKE 3 CAPSULES BY MOUTH EVERY MORNING FOR MOOD 270 Apr 08, 2021 [id number] Apr 07, 2020 KENA RAGSDALE [facility] VENLAFAXINE HCL 37.5MG 24HR CAP,SA Discontinued TAKE 3 CAPSULES BY MOUTH EVERY MORNING FOR MOOD 270 Jun 01, 2020 [id number] Dec 29, 2019 KENA RAGSDALE [facility] VENLAFAXINE HCL 75MG 24HR CAP,SA Discontinued TAKE ON E CAPSULE BY MOUTH EVERY MORNING FOR MOOD 90 Apr 13, 2020 [id number] Apr 13, 2019 KESHAWN SHERMAN [facility] Problems (Conditions): All historical and current Section Date Range: From patient's date of to the date document was create d. This section includes a list of Problems (Conditions) know n to [facility] for the patient. It includes both active and inacti ve problems (conditions). The data comes from all [place] treatment facilities. 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 [facility] [place] [facility] Depression Active 40798309 KESHAWN SHERMAN Gastroesophageal reflux disease (SNOMED CT 351296622) Active [id number] Nov 30, 2009 Entered By: FRANCO HERNANDEZ Comment: hiatal herniaNov 30, 2009 Entered By: FRANCO HERNANDEZ Comment: schiatzski ringFeb 2010 Entered By: FRANCO HERNANDEZ Comment: omeprazole and Zantac.Jun 24, 2012 Entered By: FRANCO HERNANDEZ Comment: GERD KESHAWN SHERMAN H/O: surgery Active 281486153 Aug 21, 2012 Entered By: FRANCO HERNANDEZ [...] HERNANDEZ History of polyp of colon Active 546198565 February 24, 2009 Entered By: FRANCO HERNANDEZ Comment: next colonoscopy 2008 Entered By: FRANCO HERNANDEZ Comment: tubulovilousNov 2011 Entered By: FRANCO HERNANDEZ Comment: AUG 20, 2012@14:08:51 Colonoscopy :Diverticulosis Aug 21, 2012 Entered By: FRANCO HERNANDEZ Comment: Repeat of Colonoscopy in 5 years 2017 Entered By: KESHAWN SHERMAN Comment: he refuses repeat colonoscopy KESHAWN SHERMAN Hyperlipidemia Active 52912459 KESHAWN SHERMAN Hypertension Active 87593374 KESHAWN SHERMAN Hypotonic bladder Active 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 Dec 28, 2014 Entered By: KESHAWN SHERMAN Comment: Inability to void, was seen March 2013 with catheter placedDec 28, 2014 Entered By: KESHAWN SHERMAN Comment: Now has permanent suprapubic catheterDec 28, 2014 Entered By: KESHAWN SHERMAN Comment: D/c terazosin KESHAWN SHERMAN Impaired glucose tolerance Active 5810039 Dec 31, 2013 Entered By: KESHAWN SHERMAN Comment: A1c 5.9% Dec Entered By: KESHAWN SHERMAN Comment: 5.9% December Entered By: KESHAWN SHERMAN Comment: A1c 5.9% December Entered By: KESHAWN SHERMAN Comment: a1c 6.3% December 2018 KESHAWN SHERMAN Lumbago Active 885425345 KESHAWN SHERMAN Monoclonal gammopathy of uncertain significance Active 261604875 KESHAWN SHERMAN Obesity Active 278.00 Nov 27, [...] 25, 2017 February 24, 2009 Entered By: FRACNO HERNANDEZ Comment: descending and sigmoidNov 2011 Entered [...] the Encounter. Date/Time Encounter Note(s) Provider Source Oct 23, 2019 11:04 AM ADMINISTRATIVE NOTE: LOCAL TITLE: ADMINISTRATIVE NOTE STANDARD TITLE: ADMINISTRATIVE NOTE DATE OF NOTE: OCT 23, 2019@11:04 ENTRY DATE: OCT 23, 2019@11:04:47 AUTHOR: RICARDO BOYLE COSIGNER: URGENCY: STATUS: COMPLETED ADMINISTRATIVE NOTE Has ADDENDA Called [place] regarding transfer to [place]. No answer, left message for return call. Will mail scheduling letter and place pull for follow up. /marilyn/ RICARDO BOYLE [facility] Signed: 10/23/2019 11:05 01/31/2020 ADDENDUM STATUS: COMPLETED No response to scheduling attempts. Will dispo appt and wait for [place] to contact clinic /neeta BOYLE [facility] Signed: 01/31/2020 11:12 RICARDO BOYLE [facility]
--- OUTSIDE RECORDS SUMMARY | 2020-04-30 08:16 | XMS REPORT | Encounter Summary ---
Author Author Department of [facility] MARGARET pereiar Department of [facility] Address [address] [place] [address] Phone Unavailable Care Team Providers Care Control Analyst Name Role Phone KESHAWN SHERMAN PCP [...] PART A Aug 20, 2011 PART A [id number] [phone] GUILLERMOMARGARET PATIENT MEDICARE (WNR) MEDICARE (M) PART B Aug 20, 2011 PART B [id number] [phone] GUILLERMOMARGARET PATIENT MEDICARE (WNR) MEDICARE (M) PART A Aug 20, 2011 PART A [id number] [phone] GUILLERMOMARGARET PATIENT MEDICARE (WNR) MEDICARE (M) PART B Aug 20, 2011 PART B [id number] [id number] [phone] MARGARET LI PATIENT Selected Encounter This section includes the information on record at CT for the Encounter. Date/Time Encounter Type Encounter Description Reason Provider Source Jul 05, 2019 04:20 PM Outpatient Encounter PRIMARY CARE/MEDICINE UNIQUE [place] [facility] Encounter Template Text not used by [facility] Assessments - Encounter Diagnoses No Data Provided for This Section Plan of Treatment: Future Appointments (+ 6 months) and Future Tests (+/- 45 day s) The Plan of Treatment section includes future care activities for the patient fr om all CT treatment facilities. This section includes future appointments and fu ture orders which are active, pending or scheduled. Future Appointments This section includes appointments that were scheduled t o occur 6 months from the date of the Encounter, up to a maximum of 20 appointme nts. The data comes from all [facility]. Appointment Date/Time Appointment Type Appointment Facili ty Name Aug 31, 2019 02:30 PM AMBULATORY - PSYCHIATRY [facility] Aug 31, 2019 02:35 PM [facility] Sep 21, 2019 02:30 PM AMBULATORY PS[facility]ATRY [facility] Sep 21, 2019 02:35 PM AMBULATORY - PSYCHIATRY [facility] Dec 17, 2019 02:00 PM AMBULATORY - MEDICINE [facility] Surgical Procedures: All associated to the encounter No Data Provided for This Section Lab Results: +/- 30 days of the encounter This section includes the Chemistry and Hematology Lab R esults on record with CT for the patient. Radiology Reports and Pathology Report s are provided separately, in subsequent sections. Lab Results This section contains the Chemistry/Hematology Results ysabel t were resulted 30 days before or 30 days after the date of the Encounter. Date/Time Source Result Type Result - Unit Interpretation Reference Range Comment Jun 25, 2019 12:44 PM [facility] CBC Specimen Type: BLOOD Comment: See [...] g/dL 32-36 Jun 25, 2019 12:44 PM [facility] DIFFERENTIAL Specimen Type: BLOOD Comment: See manual differential. SEGS 80 % H 36-66 LYMPHS 12 % L 19-53 MONOS 5 % 0-9 EOSINO 3 % 0-8 NORMOCYTIC Yes PLT (ESTM) ADEQ NL Jun 25, 2019 12:44 PM [facility] RENAL PROFILE Specimen Type: SERUM No comment entered. GLUCOSE (FV) 119 mg/dL H 70-110 CHLORIDE (FV) 96 mmol/L L 98-107 SODIUM (FV) 130 mmol/L L 136-145 POTASSIUM (FV) 4.0 mmol/L 3.5-5.1 CO2 (FV) 24 mmol/L 21-32 UREA NITROGEN (FV) 22 mg/dL H 6-20 CALCIUM (FV) 8.6 mg/dL L 8.9-10.3 eGFR 49 CREATININE (FV) 1.43 mg/dL H .61-1.24 Jun 25, 2019 12:44 PM [facility] SERUM PEP(PRO. ELECTROPHO RSIS) Specimen Type: SERUM Comment: SPEP appears normal. No M spike seen. Reviewed by Alec Elias MD, [facility] ALPHA 1 GLOBULINS (G/DL) 0.2 g/dL 0.1-0 .4 ALPHA 2 GLOBULINS (G/DL) 0.8 g/dL 0.4-1 .0 BETA GLOBULINS (G/DL) 0.8 g/dL 0.5-1.1 GAMMA GLOBULINS (G/DL) 1.1 g/dL 0.5-1.7 P.E. TOTAL PROTEIN 6.8 g/dL 6.1-7.9 P.E. ALBUMIN 3.9 g/dL 3.2-5.1 M-SPIKE 0.0 g/dL NOT DETECTED Jun 25, 2019 12:44 PM [facility] KAPPA/LAMBDA LIGHT CHAINS , FREE, SERUM [...] and tobacco- related health factors from the CT facility where the Encounter took place. Current Smoking Status This section includes the most current smoking, or tobacco -related health factor, from the CT facility where the Encounter took place. Date/Time Current Smoking Status Comment Facility Nov 03, 2018 09:51 AM VA-TOBACCO NEVER USED [place] [facility] Tobacco Use History This section includes a history of the smoking, or tobacco -related health factors, that were collected on or before the date of the Encoun ter. The data comes from the CT facility where the Encounter took place. Date/Time Smoking Status/Tobacco Use Comment [facility]ed With [facility] it Nov 03, 2018 09:51 AM VA-TOBACCO NEVER USED [place] [facility] Oct 24, 2017 10:25 AM V16 LIFETIME NON-TOBACCO USER [place] Oct 24, 2017 10:25 AM V16 TOBACCO USE SCREEN [place] Dec 25, 2016 01:31 PM V16 LIFETIME NON-TOBACCO USER [place] Dec 25, 2016 01:31 PM V16 TOBACCO USE SCREEN [place] Jan 03, 2016 08:51 AM V16 LIFETIME NON-TOBACCO USER [place] Jan 03, 2016 08:51 AM V16 TOBACCO USE SCREEN [place] Dec 27, 2014 04:28 PM V16 LIFETIME NON-TOBACCO USER [place] Dec 27, 2014 04:28 PM V16 TOBACCO USE SCREEN [place] Dec 29, 2013 03:57 PM V16 LIFETIME NON-TOBACCO USER [place] Dec 29, 2013 03:57 PM V16 TOBACCO USE SCREEN [place] Jun 24, 2012 12:25 PM V16 LIFETIME NON-TOBACCO USER [place] Jun 24, 2012 12:25 PM V16 TOBACCO USE SCREEN [place] Dec 18, 2010 01:24 PM V16 LIFETIME NON-TOBACCO USER [place] Dec 18, 2010 01:24 PM V16 TOBACCO USE SCREEN [place] Nov 30, 2009 01:24 PM V16 LIFETIME NON-TOBACCO USER [place] Nov 30, 2009 01:24 PM V16 TOBACCO USE SCREEN [place] Nov 25, 2008 01:22 PM V16 LIFETIME NON-TOBACCO USER [place] Nov 25, 2008 01:22 PM V16 TOBACCO USE SCREEN [place] Jan 08, 2008 12:49 PM V16 LIFETIME [...] patient. The data comes from a ll CT treatment facilities. It does not list Allergies/ADRs [...] Date Range: 1) prescriptions processed by a CT pharmacy in the last 15 m [facility], and 2) all medications recorded in the CT medical record as "non-VA medic ations". Pharmacy terms refer to VA pharmacy's work on prescriptions. VA patient s are advised to take their medications as instructed by their health care team. The data comes from all CT treatment facilities. Glossary of Pharmacy Terms:Active = A prescription that can be filled at the local [place] pharmacy.Active: On Hold = An active prescription that will not be filled until pharmacy resolves the issue.Active: Susp = An active prescription that is not scheduled to be filled yet.Clinic Order = A medication received during a visit to a CT clinic or emergency department (currently not available).Discontinued [...] may be a prescription from either the CT or other providers that was filled outside the CT. Or, it may be an over the [...] FOR BLOOD PRESSURE 90 Sep 24, 2020 [id number] Apr 07, 2020 V KESHAWN VAUGHN [facility] ATENOLOL 50MG/CHLORTHALIDONE 25MG TAB Discontinued TA KE 1 TABLET BY MOUTH EVERY MORNING FOR BLOOD PRESSURE 90 Oct 17, 2019 [id number] Jul 26, 2019 V KESHAWN VAUGHN [facility] ATORVASTATIN CA 80MG TAB Active TAKE ONE-HALF T ABLET BY MOUTH AT BEDTIME FOR CHOLESTEROL - DO NOT TAKE WITH GRAPEFRUIT JUICE 45 Apr 11, 2021 [id number] Apr 10, 2020 KESHAWN SHERMAN [facility] ATORVASTATIN CA 80MG TAB Discontinued TAKE ONE-HALF T ABLET BY MOUTH AT BEDTIME FOR CHOLESTEROL - DO NOT TAKE WITH GRAPEFRUIT JUICE 45 Dec 23, 2019 [id number] Oct 14, 2019 KESHAWN SHERMAN [facility] CARBOXYMETHYLCELLULOSE NA 0.5% SOLN,OPH INSTILL ONE DROP IN EACH EYE FOUR TIMES DAILY Feb 10, 2020 [id number] Feb 09, [address] [facility] CARBOXYMETHYLCELLULOSE NA 1% GEL,OPH INS TILL ONE DROP TO EACH EYE TWICE A DAY Feb 10, 2020 [id number] Feb 09, [address] [facility] CIPROFLOXACIN HCL 500MG TAB Active TAKE ONE TAB LET BY MOUTH TWICE A DAY - ANTIBIOTIC - TAKE UNTIL GONE *TAKE WITH FOOD AND AVOID TAKING WITH DAIRY OR PRODUCTS CONTAINING ALUMINUM, IRON, CALCIUM, OR MAGNESIUM* 14 J 2019 [id number] Apr 12, 2020 [facility] FAMOTIDINE 40MG TAB Active TAKE ONE TABLET BY M OUTH ONCE DAILY FOR STOMACH/REFLUX 30 Apr 12, 2021 [id number] Apr 11, 2020 KESHAWN SHERMAN [facility] FAMOTIDINE 40MG TAB Discontinued TAKE ONE TABLET BY M OUTH ONCE DAILY FOR STOMACH/REFLUX 90 Sep 24, 2020 [id number] Dec 29, [facility]UT[facility] PROPIONATE 50MCG/SPRAY SOLN,NASAL,16GM Active USE 2 SPRAYS IN NOSE TWICE A DAY SHAKE GENTLY BEFORE USE 3 Apr 11, 2021 [id number] J 2019 KESHAWN SHERMAN [facility] FLUTICASONE PROPIONATE 50MCG/SPRAY SOLN,NASAL,16GM Discontin ued USE 2 SPRAYS IN NOSE TWICE A DAY SHAKE GENTLY BEFORE USE 3 Dec 23, 2019 [id number] Jul 26, 2019 KESHAWN SHERMAN [facility] IBUPROFEN 600MG TAB Non- VA TAKE ONE TABLET BY MOUTH THREE TIMES DAILY WITH MEALS NEEDED Non-VA Documented by: KESHAWN SHERMAN Docume nted at: [place] MAGNESIUM OXIDE 420MG TAB Active TAKE ONE TABLE T BY MOUTH TWICE A DAY TAKE WITH FOOD 100 Apr 11, 2021 [id number] Apr 10, 2020 [facility] MAGNESIUM OXIDE 420MG TAB Discontinued TAKE ONE TABLE T BY MOUTH TWICE A DAY TAKE WITH FOOD 100 Jan 14, 2020 [id number] Dec 29, 2019 KESHAWN SHERMAN [facility] OMEPRAZOLE 20MG CAP,EC Active TAKE 1 CAPSULE BY MOUTH ONCE DAILY FOR THE STOMACH 90 Dec 30, 2020 [id number] Apr 07, 2020 KESHAWN SHERMAN [facility] OMEPRAZOLE 20MG CAP,EC Discontinued TAKE 1 CAPSULE BY MOUTH ONCE DAILY FOR THE STOMACH 90 Dec 23, 2019 [id number] Oct 14, 2019 KESHAWN SHERMAN [facility] POTASSIUM CHLORIDE 20MEQ TAB,SA (DISPERSIBLE) Active TAKE ONE TABLET BY MOUTH ONCE DAILY WITH FOOD 90 Dec 30, 2020 [id number] Apr 19, 2020 [facility] POTASSIUM CHLORIDE 20MEQ TAB,SA (DISPERSIBLE) Discontinued TAKE ONE TABLET BY MOUTH ONCE DAILY WITH FOOD 90 Dec 23, 2019 [id number] Nov 11, 2019 KESHAWN JOHNSON [facility] RANITIDINE HCL 150MG TAB Discontinued TAKE TWO TABLET S BY MOUTH AT BEDTIME FOR STOMACH 180 Dec 23, 2019 [id number] Jul 26, 2019 KESHAWN SHERMAN [place] VENLAFAXINE HCL 37.5MG 24HR CAP,SA Active TAKE 3 CAPSULES BY MOUTH EVERY MORNING FOR MOOD 270 Apr 08, 2021 [id number] Apr 07, 2020 KENA RAGSDALE [facility] VENLAFAXINE HCL 37.5MG 24HR CAP,SA Discontinued TAKE 3 CAPSULES BY MOUTH EVERY MORNING FOR MOOD 270 Jun 01, 2020 [id number] Dec 29, 2019 [facility] RAGSDALE [facility] VENLAFAXINE HCL 75MG 24HR CAP,SA Discontinued TAKE ON E CAPSULE BY MOUTH EVERY MORNING FOR MOOD 90 Apr 13, 2020 [id number] Apr 13, 2019 KESHAWN SHERMAN [facility] Problems (Conditions): All historical and current Section Date Range: From patient's date of to the date document was create d. This section includes a list of Problems (Conditions) know n to [facility] for the patient. It includes both active and inacti ve problems (conditions). The data comes from all CT treatment facilities. 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 [facility] Depression Active 57199686 [place]ESHAWN SHERMAN [place] Gastroesophageal reflux disease (SNOMED CT [id number]) Active [id number] Nov 30, 2009 Entered By: FRANCO HERNANDEZ Comment: hiatal herniaFeb 2009 Entered By: FRANCO HERNANDEZ Comment: schiatzski ringFeb 2010 Entered By: FRANCO HERNANDEZ Comment: omeprazole and Zantac.Jun 24, 2012 Entered By: FRANCO HERNANDEZ Comment: GERD KESHAWN SHERMAN H/O: surgery Active [id number] Aug 21, 2012 Entered By: FRANCO HERNANDEZ [...] HERNANDEZ History of polyp of colon Active 684012811 February 24, 2009 Entered By: FRANCO HERNANDEZ Comment: next colonoscopy 2008 Entered By: FRANCO HERNANDEZ Comment: tubulovilousAug 21, 2012 Entered By: FRANCO HERNANDEZ Comment: AUG 20, 2012@14:08:51 Colonoscopy :Diverticulosis Aug 21, 2012 Entered By: FRANCO HERNANDEZ Comment: Repeat of Colonoscopy in 5 years 2017 Entered By: KESHAWN SHERMAN Comment: he refuses repeat colonoscopy KESHAWN SHERMAN Hyperlipidemia Active 28263902 KESHAWN SHERMAN Hypertension Active 23831856 KESHAWN SHREMAN 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 Dec 28, 2014 Entered By: KESHAWN SHERMAN Comment: Inability to void, was seen March 2013 with catheter placedDec 28, 2014 Entered By: KESHAWN SHERMAN Comment: Now has permanent suprapubic catheterDec 28, 2014 Entered By: KESHAWN SHERMAN Comment: D/c terazosin KESHAWN SHERMAN Impaired glucose tolerance Active 5413767 Dec 31, 2013 Entered By: KESHAWN SHERMAN Comment: A1c 5.9% Dec Entered By: KESHAWN SHERMAN Comment: 5.9% December Entered By: KESHAWN SHERMAN Comment: A1c 5.9% December Entered By: KESHAWN SHERMAN Comment: a1c 6.3% December 2018 KESHAWN SHERMAN Lumbago Active 565036677 KESHAWN SHERMAN Monoclonal gammopathy of uncertain significance Active 176545771 KESHAWN SHERMAN Obesity Active 278.00 Nov 27, [...] Encounter. Date/Time Encounter Note(s) Provider Source Jul 05, 2019 04:20 PM ADMINISTRATIVE NOTE: LOCAL TITLE: ADMINISTRATIVE NOTE STANDARD TITLE: ADMINISTRATIVE NOTE DATE OF NOTE: JUL 05, 2019@16:20 ENTRY DATE: JUL 05, 2019@16:21:01 AUTHOR: MICHELLE BOWENS EXP COSIGNER: URGENCY: STATUS: COMPLETED ADMINISTRATIVE NOTE Has ADDENDA 6m lab results are completed. Please adv ise . /marilyn/ MICHELLE BOWENS LPN [employer]INEERING [employer]RAFTSPERSON, Primary Care Signed: 07/05/2019 16:22 Receipt Acknowledged By: 07/05/2019 16:53 /marilyn/ KESHAWN VAUGHN MD PRIMARY CARE PHYSICIAN - UNIQUE 07/05/2019 ADDENDUM STATUS: COMPLETED Renal and immunoglobulin labs are stable, normal spep. No change in treatment plan. /marilyn/ KESHAWN SHERMAN MD PRIMARY CARE PHYSICIAN - UNIQUE Signed: 07/05/2019 16:53 Receipt Acknowledged By: * AWAITING SIGNATURE * MICHELLE BOWENS LINDA P [place]
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
--- OUTSIDE RECORDS SUMMARY | 2020-04-30 08:17 | XMS REPORT | Encounter Summary ---
Author Author Department of [facility] MARGARET pereira Department of [facility] Address [address] [place] [address] Phone Unavailable Care Team Providers Care Shank Sander Name Role Phone KESHAWN SHERMAN PCP Unavailable [...] PART A Aug 20, 2011 PART A [id number] [phone] GUILLERMOMARGARET PATIENT MEDICARE (WNR) MEDICARE (M) PART B Aug 20, 2011 PART B [id number] [phone] GUILLERMOMARGARET PATIENT MEDICARE (WNR) MEDICARE (M) PART A Aug 20, 2011 PART A [id number] [phone] MARGARET LI PATIENT MEDICARE (WNR) MEDICARE (M) PART B Aug 20, 2011 PART B [id number] [id number] [phone] MARGARET LI PATIENT Selected Encounter This section includes the information on record at [place] for the Encounter. Date/Time Encounter Type Encounter Description Reason Provider Source Jun 03, 2019 05:03 PM Outpatient Encounter PRIMARY CARE/MEDICINE UNIQUE [place] [...] appointme nts. The data comes from all [facility]. Appointment Date/Time Appointment Type Appointment Facili ty Name Jun 25, 2019 11:00 AM AMBULATORY - NONE [facility] Jun 25, 2019 02:00 PM AMBULATORY - MEDICINE [facility] Jun 28, 2019 02:15 PM AMBULATORY - MEDICINE [facility] Jun 30, 2019 02:15 PM AMBULATORY - MEDICINE [facility] Jul 05, 2019 02:15 PM AMBULATORY - MEDICINE [facility] Aug 31, 2019 02:30 PM AMBULATORY - PS[facility] Aug 31, 2019 02:35 PM AMBULATORY - PSYCHIATRY [facility] Sep 21, 2019 02:30 PM AMBULATORY - PSYCHIATRY [facility] Sep 21, 2019 02:35 PM AMBULATORY - PSYCHIATRY [facility] Surgical Procedures: All associated to the encounter No Data Provided for This Section Lab Results: +/- 30 days of the encounter This section includes the Chemistry and Hematology Lab R esults on record with [place] for the patient. Radiology Reports and Pathology Report s are provided separately, in subsequent sections. Lab Results This section contains the Chemistry/Hematology Results ysabel t were resulted 30 days before or 30 days after the date of the Encounter. Date/Time Source Result Type Result - Unit Interpretation Reference Range Comment Jun 25, 2019 12:44 PM [facility] CBC Specimen Type: BLOOD Comment: [...] g/dL 32-36 Jun 25, 2019 12:44 PM [facility] DIFFERENTIAL Specimen Type: BLOOD Comment: See manual differential. SEGS 80 % H 36-66 LYMPHS 12 % L 19-53 MONOS 5 % 0-9 EOSINO 3 % 0-8 NORMOCYTIC Yes PLT (ESTM) ADEQ NL Jun 25, 2019 12:44 PM [facility] RENAL PROFILE Specimen Type: SERUM [...] H .61-1.24 Jun 25, 2019 12:44 PM [facility] SERUM PEP(PRO. ELECTROPHO RSIS) Specimen Type: SERUM Comment: SPEP appears normal. No M spike seen. Reviewed by Alec Elias MD, [facility] ALPHA 1 GLOBULINS (G/DL) 0.2 g/dL 0.1-0 .4 ALPHA 2 GLOBULINS (G/DL) 0.8 g/dL 0.4-1 .0 BETA GLOBULINS (G/DL) 0.8 g/dL 0.5-1.1 GAMMA GLOBULINS (G/DL) 1.1 g/dL 0.5-1.7 P.E. TOTAL PROTEIN 6.8 g/dL 6.1-7.9 P.E. ALBUMIN 3.9 g/dL 3.2-5.1 M-SPIKE 0.0 g/dL NOT DETECTED Jun 25, 2019 12:44 PM [facility] KAPPA/LAMBDA LIGHT CHAINS , FREE, [...] and tobacco- related health factors from the [place] facility where the Encounter took place. Current Smoking Status This section includes the most current smoking, or tobacco -related health factor, from the [place] facility where the Encounter took place. Date/Time Current Smoking Status Comment Facility Nov 03, 2018 09:51 AM VA-TOBACCO NEVER USED [place] [facility] Tobacco Use History This section includes a history of the smoking, or tobacco -related health factors, that were collected on or before the date of the Encoun ter. The data comes from the [place] facility where the Encounter took place. Date/Time Smoking Status/Tobacco Use Comment [facility] it Nov 03, 2018 09:51 AM VA-TOBACCO NEVER USED [place] [facility] Oct 24, 2017 10:25 AM V16 LIFETIME NON-TOBACCO USER [place] [facility] Oct 24, 2017 10:25 AM V16 TOBACCO USE SCREEN [place] [facility] Dec 25, 2016 01:31 PM V16 LIFETIME NON-TOBACCO USER [place] [facility] Dec 25, 2016 01:31 PM V16 TOBACCO USE SCREEN [place] [facility] Jan 03, 2016 08:51 AM V16 LIFETIME NON-TOBACCO USER [place] [facility] Jan 03, 2016 08:51 AM V16 TOBACCO USE SCREEN [place] [facility] Dec 27, 2014 04:28 PM V16 LIFETIME NON-TOBACCO USER [place] [facility] Dec 27, 2014 04:28 PM V16 TOBACCO USE SCREEN [place] [facility] Dec 29, 2013 03:57 PM V16 LIFETIME NON-TOBACCO USER [place] [facility] Dec 29, 2013 03:57 PM V16 TOBACCO USE SCREEN [place] [facility] Jun 24, 2012 12:25 PM V16 LIFETIME NON-TOBACCO USER [place] [facility] Jun 24, 2012 12:25 PM V16 TOBACCO USE SCREEN [place] [facility] Dec 18, 2010 01:24 PM V16 LIFETIME NON-TOBACCO USER [place] [facility] Dec 18, 2010 01:24 PM V16 TOBACCO USE SCREEN [place] [facility] Nov 30, 2009 01:24 PM V16 LIFETIME NON-TOBACCO USER [place] [facility] Nov 30, 2009 01:24 PM V16 TOBACCO [...] 11:04 AM LIFETIME NON-TOBACCO USER [facility] Nov 20, 2000 01:09 PM LIFETIME NON-TOBACCO USER [place] [place] Advance Directives: All historical and [...] [facility] pharmacy in the last 15 m [facility], and 2) all medications recorded [...] that came from someplace other than a [place] pharmacy. This may be a prescription from [...] FOR BLOOD PRESSURE 90 Sep 24, 2020 [id number] Apr 07, 2020 V KESHAWN VAUGHN [facility] ATENOLOL 50MG/CHLORTHALIDONE 25MG TAB Discontinued TA KE 1 TABLET BY MOUTH EVERY MORNING FOR BLOOD PRESSURE 90 Oct 17, 2019 [id number] Jul 26, 2019 V KESHAWN VAUGHN [facility] ATORVASTATIN CA 80MG TAB Active TAKE ONE-HALF T ABLET BY MOUTH AT BEDTIME FOR CHOLESTEROL - DO NOT TAKE WITH GRAPEFRUIT JUICE 45 Apr 11, 2021 [id number] Apr 10, 2020 KESHAWN SHERMAN [facility] ATORVASTATIN CA 80MG TAB Discontinued TAKE ONE-HALF T ABLET BY MOUTH AT BEDTIME FOR CHOLESTEROL - DO NOT TAKE WITH GRAPEFRUIT JUICE 45 Dec 23, 2019 [id number] Oct 14, 2019 KESHAWN SHERMAN [facility] CARBOXYMETHYLCELLULOSE NA 0.5% SOLN,OPH INSTILL ONE DROP IN EACH EYE FOUR TIMES DAILY Feb 10, 2020 [id number] Feb 09, 2019 [facility] CARBOXYMETHYLCELLULOSE NA 1% GEL,OPH INS TILL ONE DROP TO EACH EYE TWICE A DAY 15 Feb 10, 2020 [id number] Feb 09, 2019 [facility] CIPROFLOXACIN HCL 500MG TAB Active TAKE ONE TAB LET BY MOUTH TWICE A DAY - ANTIBIOTIC - TAKE UNTIL GONE *TAKE WITH FOOD AND AVOID TAKING WITH DAIRY OR PRODUCTS CONTAINING ALUMINUM, IRON, CALCIUM, OR MAGNESIUM* 14 J 2019 [id number] Apr 12, 2020 ALEXANDRA REYES [facility] FAMOTIDINE 40MG TAB Active TAKE ONE TABLET BY M OUTH ONCE DAILY FOR STOMACH/REFLUX 30 Apr 12, 2021 [id number] Apr 11, 2020 KESHAWN SHERMAN [facility] FAMOTIDINE 40MG TAB Discontinued TAKE ONE TABLET BY M OUTH ONCE DAILY FOR STOMACH/REFLUX 90 Sep 24, 2020 [id number] Dec 29, 2019 KESHAWN SHERMAN [facility] FLUTICASONE PROPIONATE 50MCG/SPRAY SOLN,NASAL,16GM Active USE 2 SPRAYS IN NOSE TWICE A DAY SHAKE GENTLY BEFORE USE 3 Apr 11, 2021 [id number] J 2019 KESHAWN SHERMAN [facility] FLUTICASONE PROPIONATE 50MCG/SPRAY SOLN,NASAL,16GM Discontin ued USE 2 SPRAYS IN NOSE TWICE A DAY SHAKE GENTLY BEFORE USE 3 Dec 23, 2019 [id number] Jul 26, 2019 KESHAWN SHERMAN [facility] IBUPROFEN 600MG TAB Non- [facility] TAKE ONE TABLET BY MOUTH THREE TIMES DAILY WITH MEALS NEEDED Non-VA Documented by: KESHAWN SHERMAN Docume nted at: UNIQUE [place] MAGNESIUM OXIDE 420MG TAB Active TAKE ONE TABLE T BY MOUTH TWICE A DAY TAKE WITH FOOD 100 Apr 11, 2021 [id number] Apr 10, 2020 KESHAWN SHERMAN [facility] MAGNESIUM OXIDE 420MG TAB Discontinued TAKE ONE TABLE T BY MOUTH TWICE A DAY TAKE WITH FOOD 100 Jan 14, 2020 [id number] Dec 29, 2019 KESHAWN SHERMAN [facility] OMEPRAZOLE 20MG CAP,EC Active TAKE 1 CAPSULE BY MOUTH ONCE DAILY FOR THE STOMACH 90 Dec 30, 2020 [id number] Apr 07, 2020 KESHAWN SHERMAN [facility] OMEPRAZOLE 20MG CAP,EC Discontinued TAKE 1 CAPSULE BY MOUTH ONCE DAILY FOR THE STOMACH 90 Dec 23, 2019 [id number] Oct 14, 2019 KESHAWN SHERMAN [facility] POTASSIUM CHLORIDE 20MEQ TAB,SA (DISPERSIBLE) Active TAKE ONE TABLET BY MOUTH ONCE DAILY WITH FOOD 90 Dec 30, 2020 [id number] Apr 19, 2020 HAMLET SHERMAN [facility] POTASSIUM CHLORIDE 20MEQ TAB,SA (DISPERSIBLE) Discontinued TAKE ONE TABLET BY MOUTH ONCE DAILY WITH FOOD 90 Dec 23, 2019 [id number] Nov 11, 2019 KESHAWN JOHNSON [facility] RANITIDINE HCL 150MG TAB Discontinued TAKE TWO TABLET S BY MOUTH AT BEDTIME FOR STOMACH 180 Dec 23, 2019 [id number] Jul 26, 2019 KESHAWN SHERMAN [place] VENLAFAXINE HCL 37.5MG 24HR CAP,SA Active TAKE 3 CAPSULES BY MOUTH EVERY MORNING FOR MOOD 270 Apr 08, 2021 [id number] Apr 07, 2020 KENA RAGSDALE [facility] VENLAFAXINE HCL 37.5MG 24HR CAP,SA Discontinued TAKE 3 CAPSULES BY MOUTH EVERY MORNING FOR MOOD 270 Jun 01, 2020 [id number] Dec 29, 2019 KENA RAGSDALE [place] VENLAFAXINE HCL 75MG 24HR CAP,SA Discontinued TAKE ON E CAPSULE BY MOUTH EVERY MORNING FOR MOOD 90 Apr 13, 2020 [id number] Apr 13, 2019 KESHAWN SHERMAN [facility] Problems (Conditions): All historical and current Section Date Range: From patient's date of to the date document was create d. This section includes a list of Problems (Conditions) know n to [place] for the patient. It includes both active and inacti ve problems (conditions). The data comes from all [place] treatment facilities. 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 [facility] Depression Active 92508013 KESHAWN SHERMAN [facility] Gastroesophageal reflux disease (SNOMED CT 408142158) Active [id number] Nov 30, 2009 Entered By: FRANCO HERNANDEZ Comment: hiatal herniaFeb 2009 Entered By: FRANCO HERNANDEZ Comment: schiatzski ringFeb 2010 Entered By: FRANCO HERNANDEZ Comment: omeprazole and Zantac.Jun 24, 2012 Entered By: FRANCO HERNANDEZ Comment: GERD KESHAWN SHERMAN H/O: surgery Active 387808078 Aug 21, 2012 Entered By: FRANCO HERNANDEZ [...] HERNANDEZ History of polyp of colon Active 459293980 February 24, 2009 Entered By: FRANCO HERNANDEZ Comment: next colonoscopy 2008 Entered By: FRANCO HERNANDEZ Comment: tubulovilousNov 2011 Entered By: FRANCO HERNANDEZ Comment: AUG 20, 2012@14:08:51 Colonoscopy :Diverticulosis Aug 21, 2012 Entered By: FRANCO HERNANDEZ Comment: Repeat of Colonoscopy in 5 years 2017 Entered By: KESHANW SHERMAN Comment: he refuses repeat colonoscopy KESHAWN SHERMAN Hyperlipidemia Active 72888236 KESHAWN SHERMAN Hypertension Active 53991585 KESHAWN SHERMAN Hypotonic bladder Active 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 Dec 28, 2014 Entered By: KESHAWN SHERMAN Comment: Inability to void, was seen March 2013 with catheter placedDec 28, 2014 Entered By: KESHAWN SHERMAN Comment: Now has permanent suprapubic catheterDec 28, 2014 Entered By: KESHAWN SHERMAN Comment: D/c terazosin KESHAWN SHERMAN Impaired glucose tolerance Active 7030429 Dec 31, 2013 Entered By: KESHAWN SHERMAN Comment: A1c 5.9% Dec Entered By: KESHAWN SHERMAN Comment: 5.9% December Entered By: KESHAWN SHERMAN Comment: A1c 5.9% December Entered By: KESHAWN SHERMAN Comment: a1c 6.3% December 2018 KESHAWN SHERMAN Lumbago Active 728607901 KESHAWN SHERMAN Monoclonal gammopathy of uncertain significance Active 285904935 KESHAWN SHERMAN Obesity Active 278.00 Nov 27, [...] Inactive 724.2 Dec 25, 2017 PROV ADRIÁNDAJA Noncompliance, Medication Regimen (ICD-9-CM V15.81) Inactive V1 5.81 Dec 25, 2017 STEPHEN BARAJAS Radiology Reports: +/- 30 days of the encounter No Data Provided for This Section Pathology Reports: +/- 30 days of the encounter No Data Provided for This Section Encounter Notes: All associated encounter notes This section contains the clinical notes associated to the Encounter. Date/Time Encounter Note(s) Provider Source Jun 03, 2019 05:03 PM ADMINISTRATIVE NOTE: LOCAL TITLE: ADMINISTRATIVE NOTE STANDARD TITLE: ADMINISTRATIVE NOTE DATE OF NOTE: JUN 03, 2019@17:03 ENTRY DATE: JUN 03, 2019@17:03:40 AUTHOR: RICARDO BOYLE COSIGNER: URGENCY: STATUS: COMPLETED Called regarding transfer to [place]. I explained to him that we are not able to assign him to a team here until fall. I offered the option of either staying with his current team until assigned or we could send him to a local Dr via [place] [facility]. He stated that he would stay with current team until assigned. Clive rebollar. 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
--- OUTSIDE RECORDS SUMMARY | 2020-04-30 08:17 | XMS REPORT | Encounter Summary ---
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 Date/Time Encounter Type Encounter Description Reason Provider Source Jun 30, 2019 03:36 PM Outpatient Encounter PRIMARY CARE/MEDICINE [facility] [place] [facility] Encounter Template Text not used by [facility] Assessments - Encounter Diagnoses No Data Provided for This Section Plan of Treatment: Future Appointments (+ 6 months) and Future Tests (+/- 45 day s) The Plan of Treatment section includes future care activities for the patient fr om all [place] treatment facilities. This section includes future appointments and fu ture orders which are active, pending or scheduled. Future Appointments This section includes appointments that were scheduled t o occur 6 months from the date of the Encounter, up to a maximum of 20 appointme nts. The data comes from all [place] treatment [facility]. Appointment Date/Time Appointment Type Appointment Facili ty Name Jul 05, 2019 02:15 PM [place] [place] Aug 31, 2019 02:30 PM AMBULATORY - PSYCHIATRY [facility] Aug 31, 2019 02:35 PM AMBULATORY - PSYCHIATRY [facility] Sep 21, 2019 02:30 PM AMBULATORY PSYCHIATRY [facility] Sep 21, 2019 02:35 PM AMBULATORY - PSYCHIATRY [facility] Dec 17, 2019 02:00 PM AMBULATORY - MEDICINE [facility] Surgical Procedures: All associated to the encounter No Data Provided for This Section Lab Results: +/- 30 days of the encounter This section includes the Chemistry and Hematology Lab R esults on record with [place] for the patient. Radiology Reports and Pathology Report s are provided separately, in subsequent sections. Lab Results This section contains the Chemistry/Hematology Results ysabel t were resulted 30 days before or 30 days after the date of the Encounter. Date/Time Source Result Type Result - Unit Interpretation Reference Range Comment Jun 25, 2019 12:44 PM [facility] CBC Specimen Type: BLOOD Comment: See manual [...] g/dL 32-36 Jun 25, 2019 12:44 PM [facility] DIFFERENTIAL Specimen Type: BLOOD Comment: See manual differential. SEGS 80 % H 36-66 LYMPHS 12 % L 19-53 MONOS 5 % 0-9 EOSINO 3 % 0-8 NORMOCYTIC Yes PLT (ESTM) ADEQ NL Jun 25, 2019 12:44 PM [facility] RENAL PROFILE Specimen Type: SERUM No comment entered. GLUCOSE (FV) 119 mg/dL H 70-110 CHLORIDE (FV) 96 mmol/L L 98-107 SODIUM (FV) 130 mmol/L L 136-145 POTASSIUM (FV) 4.0 mmol/L 3.5-5.1 CO2 (FV) 24 mmol/L 21-32 UREA NITROGEN (FV) 22 mg/dL H 6-20 CALCIUM (FV) 8.6 mg/dL L 8.9-10.3 eGFR 49 CREATININE (FV) 1.43 mg/dL H .61-1.24 Jun 25, 2019 12:44 PM [facility] SERUM PEP(PRO. ELECTROPHO RSIS) Specimen Type: SERUM Comment: SPEP appears normal. No M spike seen. Reviewed by Alec Elias MD, [facility] ALPHA 1 GLOBULINS (G/DL) 0.2 g/dL 0.1-0 .4 ALPHA 2 GLOBULINS (G/DL) 0.8 g/dL 0.4-1 .0 BETA GLOBULINS (G/DL) 0.8 g/dL 0.5-1.1 GAMMA GLOBULINS (G/DL) 1.1 g/dL 0.5-1.7 P.E. TOTAL PROTEIN 6.8 g/dL 6.1-7.9 P.E. ALBUMIN 3.9 g/dL 3.2-5.1 M-SPIKE 0.0 g/dL NOT DETECTED Jun 25, 2019 12:44 PM [facility] KAPPA/LAMBDA LIGHT CHAINS , FREE, SERUM Specimen [...] and tobacco- related health factors from the [place] facility where the Encounter took place. Current Smoking Status This section includes the most current smoking, or tobacco -related health factor, from the [place] facility where the Encounter took place. Date/Time Current Smoking Status Comment Facility Nov 03, 2018 09:51 AM VA-TOBACCO NEVER USED [place] [facility] Tobacco Use History This section includes a history of the smoking, or tobacco -related health factors, that were collected on or before the date of the Encoun ter. The data comes from the [place] facility where the Encounter took place. Date/Time Smoking Status/Tobacco Use Comment Facil it Nov 03, 2018 09:51 AM VA-TOBACCO NEVER USED [place] [facility] Oct 24, 2017 10:25 AM V16 LIFETIME NON-TOBACCO USER [place] Oct 24, 2017 10:25 AM V16 TOBACCO USE [place]CREEN [place] Dec 25, 2016 01:31 PM V16 LIFETIME NON-TOBACCO USER [place] Dec 25, 2016 01:31 PM V16 TOBACCO USE SCREEN [place] Jan 03, 2016 08:51 AM V16 LIFETIME NON-TOBACCO USER [place] Jan 03, 2016 08:51 AM V16 TOBACCO USE [place]CREEN [place] Dec 27, 2014 04:28 PM V16 LIFETIME NON-TOBACCO USER [place] Dec 27, 2014 04:28 PM V16 TOBACCO USE SCREEN [place] Dec 29, 2013 03:57 PM V16 LIFETIME NON-TOBACCO USER [place] Dec 29, 2013 03:57 PM V16 TOBACCO USE SCREEN [place] Jun 24, 2012 12:25 PM V16 LIFETIME NON-TOBACCO USER [place] Jun 24, 2012 12:25 PM V16 TOBACCO USE SCREEN [place] Dec 18, 2010 01:24 PM V16 LIFETIME NON-TOBACCO USER [place] Dec 18, 2010 01:24 PM V16 TOBACCO USE SCREEN [place] Nov 30, 2009 01:24 PM V16 LIFETIME NON-TOBACCO USER [place] Nov 30, 2009 01:24 PM V16 TOBACCO USE SCREEN [place] Nov 25, 2008 01:22 PM V16 LIFETIME NON-TOBACCO USER [place] Nov 25, 2008 01:22 PM V16 TOBACCO USE SCREEN [place] Jan 08, 2008 12:49 PM V16 LIFETIME NON-TOBACCO USER [place] Jan 08, 2008 12:49 PM V16 TOBACCO USE SCREEN [facility] [place] Apr 28, 2007 01:53 PM V16 [...] patient. The data comes from a ll [place] treatment facilities. It does not list Allergies/ADRs [...] Date Range: 1) prescriptions processed by a [place] pharmacy in the last 15 m [facility], and 2) all medications recorded in the [place] medical record as "non-VA medic ations". Pharmacy terms refer to VA pharmacy's work on prescriptions. VA patient s are advised to take their medications as instructed by their health care team. The data comes from all [place] treatment facilities. Glossary of Pharmacy Terms:Active = A prescription that can be filled at the local [place] pharmacy.Active: On Hold = An active prescription that will not be filled until pharmacy resolves the issue.Active: Susp = An active prescription that is not scheduled to be filled yet.Clinic Order = A medication received during a visit to a [place] clinic or emergency department (currently not available).Discontinued = A prescription stopped by a VA provider. It is no longer available to be filled. = A prescription which is too old to fill. This does not refer to the expiration date of the medication in the container. Non-VA = A medication that came from someplace other than a [place] pharmacy. This may be a prescription from either the [place] or other providers that was filled outside the [place]. Or, it may be an over the [...] FOR BLOOD PRESSURE 90 Sep 24, 2020 [id number] Apr 07, 2020 KESHAWN JOHNSON [facility] ATENOLOL 50MG/CHLORTHALIDONE 25MG TAB Discontinued TA KE 1 TABLET BY MOUTH EVERY MORNING FOR BLOOD PRESSURE 90 Oct 17, 2019 [id number] Jul 26, 2019 KESHAWN JOHNSON [facility] ATORVASTATIN CA 80MG TAB Active TAKE ONE-HALF T ABLET BY MOUTH AT BEDTIME FOR CHOLESTEROL - DO NOT TAKE WITH GRAPEFRUIT JUICE 45 Apr 11, 2021 [id number] Apr 10, 2020 KESHAWN SHERMAN [facility] ATORVASTATIN CA 80MG TAB Discontinued TAKE ONE-HALF T ABLET BY MOUTH AT BEDTIME FOR CHOLESTEROL - DO NOT TAKE WITH GRAPEFRUIT JUICE 45 Dec 23, 2019 [id number] Oct 14, 2019 [facility] CARBOXYMETHYLCELLULOSE NA 0.5% SOLN,OPH INSTILL ONE DROP IN EACH EYE FOUR TIMES DAILY Feb 10, 2020 [id number] Feb 09, 2019 [facility] [place] [facility] CARBOXYMETHYLCELLULOSE NA 1% GEL,OPH INS TILL ONE DROP TO EACH EYE TWICE A DAY Feb 10, 2020 [id number] Feb 09, 2019 MAGEN [facility] CIPROFLOXACIN HCL 500MG TAB Active TAKE ONE TAB LET BY MOUTH TWICE A DAY - ANTIBIOTIC - TAKE UNTIL GONE *TAKE WITH FOOD AND AVOID TAKING WITH DAIRY OR PRODUCTS CONTAINING ALUMINUM, IRON, CALCIUM, OR MAGNESIUM* 14 J 2019 [id number] Apr 12, [address] [facility] FAMOTIDINE 40MG TAB Active TAKE ONE TABLET BY M OUTH ONCE DAILY FOR STOMACH/REFLUX 30 Apr 12, 2021 [id number] Apr 11, 2020 KESHAWN SHERMAN [facility] FAMOTIDINE 40MG TAB Discontinued TAKE ONE TABLET BY M OUTH ONCE DAILY FOR STOMACH/REFLUX 90 Sep 24, 2020 [id number] Dec 29, 2019 KESHAWN SHERMAN [facility] FLUTICASONE PROPIONATE 50MCG/SPRAY SOLN,NASAL,16GM Active USE 2 SPRAYS IN NOSE TWICE A DAY SHAKE GENTLY BEFORE USE 3 Apr 11, 2021 [id number] J 2019 [facility] FLUTICASONE PROPIONATE 50MCG/SPRAY SOLN,NASAL,16GM Discontin ued USE 2 SPRAYS IN NOSE TWICE A DAY SHAKE GENTLY BEFORE USE 3 Dec 23, 2019 [id number] Jul 26, 2019 KESHAWN SHERMAN [facility] IBUPROFEN 600MG TAB Non- VA TAKE ONE TABLET BY MOUTH THREE TIMES DAILY WITH MEALS NEEDED Non-VA Documented by: KESHAWN SHERMAN Docume nted at: [facility] [place] MAGNESIUM OXIDE 420MG TAB Active TAKE ONE TABLE T BY MOUTH TWICE A DAY TAKE WITH FOOD 100 Apr 11, 2021 [id number] Apr 10, 2020 [facility] MAGNESIUM OXIDE 420MG TAB Discontinued TAKE ONE TABLE T BY MOUTH TWICE A DAY TAKE WITH FOOD 100 Jan 14, 2020 [id number] Dec 29, 2019 KESHAWN SHERMAN [facility] OMEPRAZOLE 20MG CAP,EC Active TAKE 1 CAPSULE BY MOUTH ONCE DAILY FOR THE STOMACH 90 Dec 30, 2020 [id number] Apr 07, 2020 KESHWAN SHERMAN [facility] OMEPRAZOLE 20MG CAP,EC Discontinued TAKE 1 CAPSULE BY MOUTH ONCE DAILY FOR THE STOMACH 90 Dec 23, 2019 [id number] Oct 14, 2019 KESHAWN SHERMAN [facility] POTASSIUM CHLORIDE 20MEQ TAB,SA (DISPERSIBLE) Active TAKE ONE TABLET BY MOUTH ONCE DAILY WITH FOOD 90 Dec 30, 2020 [id number] Apr 19, 2020 [facility] [place] [facility] POTASSIUM CHLORIDE 20MEQ TAB,SA (DISPERSIBLE) Discontinued TAKE ONE TABLET BY MOUTH ONCE DAILY WITH FOOD 90 Dec 23, 2019 [id number] Nov 11, 2019 KESHAWN JOHNSON [facility] RANITIDINE HCL 150MG TAB Discontinued TAKE TWO TABLET S BY MOUTH AT BEDTIME FOR STOMACH 180 Dec 23, 2019 [id number] Jul 26, 2019 KESHAWN SHERMAN [place] VENLAFAXINE HCL 37.5MG 24HR CAP,SA Active TAKE 3 CAPSULES BY MOUTH EVERY MORNING FOR MOOD 270 Apr 08, 2021 [id number] Apr 07, 2020 KENA RAGSDALE [facility] VENLAFAXINE HCL 37.5MG 24HR CAP,SA Discontinued TAKE 3 CAPSULES BY MOUTH EVERY MORNING FOR MOOD 270 Jun 01, 2020 [id number] Dec 29, 2019 [facility] VENLAFAXINE HCL 75MG 24HR CAP,SA Discontinued TAKE ON E CAPSULE BY MOUTH EVERY MORNING FOR MOOD 90 Apr 13, 2020 [id number] Apr 13, 2019 KESHAWN SHERMAN [facility] Problems (Conditions): All historical and current Section Date Range: From patient's date of to the date document was create d. This section includes a list of Problems (Conditions) know n to [place] for the patient. It includes both active and inacti ve problems (conditions). The data comes from all [place] treatment facilities. 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 [facility] [place] [facility] Depression Active 48422373 KESHAWN SHERMAN [place] Gastroesophageal reflux disease (SNOMED CT 495360000) Active 2957 81802 Nov 30, 2009 Entered By: FRANCO HERNANDEZ Comment: hiatal herniaFeb 2009 Entered By: FRANCO HERNANDEZ Comment: schiatzski ringFeb 2010 Entered By: FRANCO HERNANDEZ Comment: omeprazole and Zantac.Jun 24, 2012 Entered By: FRANCO HERNANDEZ Comment: GERD KESHAWN SHERMAN H/O: surgery Active [id number] Aug 21, 2012 Entered By: FRANCO HERNANDEZ [...] HERNANDEZ History of polyp of colon Active 983863332 February 24, 2009 Entered By: FRANCO HERNANDEZ Comment: next colonoscopy 2008 Entered By: FRANCO HERNANDEZ Comment: tubulovilousAug 21, 2012 Entered By: FRANCO HERNANDEZ Comment: AUG 20, 2012@14:08:51 Colonoscopy :Diverticulosis Aug 21, 2012 Entered By: FRANCO HERNANDEZ Comment: Repeat of Colonoscopy in 5 years 2017 Entered By: KESHAWN SHERMAN Comment: he refuses repeat colonoscopy KESHAWN SHERMAN Hyperlipidemia Active 41049206 KESHAWN SHERMAN Hypertension Active 09727019 KESHAWN SHERMAN Hypotonic bladder Active 405258140 Dec 28, 2014 Entered By: KESHAWN SHERMAN Comment: Inability to void, was seen March 2013 with catheter placedDec 28, 2014 Entered By: KESHAWN SHERMAN Comment: Now has permanent suprapubic catheterDec 28, 2014 Entered By: KESHAWN SHERMAN Comment: D/c terazosin KESHAWN SHERMAN Impaired glucose tolerance Active 7811111 Dec 31, 2013 Entered By: KESHWAN SHERMAN Comment: A1c 5.9% Dec Entered By: KESHAWN SHERMAN Comment: 5.9% December Entered By: KESHAWN SHERMAN Comment: A1c 5.9% December Entered By: KESHAWN SHERMAN Comment: a1c 6.3% December 2018 KESHAWN SHERMAN Lumbago Active 818271471 KESHAWN SHERMAN Monoclonal gammopathy of uncertain significance Active 547193955 KESHAWN SHERMAN Obesity Active 278.00 Nov 27, [...] 2010 Entered By: FRANCO HERNANDEZ Comment: on effSTEPHEN Ward Diverticulosis Inactive 562.10 Dec 25, 2017 February [...] 724.2 Dec 25, 2017 PROV DAJA SAMPSON Alonso [place] Noncompliance, Medication Regimen [...] Encounter. Date/Time Encounter Note(s) Provider Source Jun 30, 2019 03:36 PM ADMINISTRATIVE NOTE: LOCAL TITLE: ADMINISTRATIVE NOTE STANDARD TITLE: ADMINISTRATIVE NOTE DATE OF NOTE: JUN 30, 2019@15:36 ENTRY DATE: JUN 30, 2019@15:36:27 AUTHOR: MICHELLE BOWENS EXP COSIGNER: URGENCY: STATUS: COMPLETED ADMINISTRATIVE NOTE Has ADDENDA Please place a pull for 6m lab results done on 06/25, Thanks /marilyn/ MICHELLE BOWENS LPN [employer]P [employer]EARCH AND STRATEGIC ANALYSIS, Primary Care Signed: 06/30/2019 15:37 Receipt Acknowledged By: 06/30/2019 16:08 /marilyn/ JAYASHREE MENDEZ [facility], PRIMARY CARE 06/30/2019 ADDENDUM STATUS: COMPLETED Pull appt placed. /marilyn/ JAYASHREE LEE [employer] [facility], PRIMARY CARE Signed: 06/30/2019 16:08 MICHELLE BOWENS
--- OUTSIDE RECORDS SUMMARY | 2020-04-30 08:17 | XMS REPORT | Encounter Summary ---
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 Date/Time Encounter Type Encounter Description Reason Provider Source Jun 24, 2019 03:13 PM Outpatient Encounter TELEPHONE PRIMARY CARE [facility] [place] [facility] Encounter Template Text not used by [facility] Assessments - Encounter Diagnoses No Data Provided for This Section Plan of Treatment: Future Appointments (+ 6 months) and Future Tests (+/- 45 day s) The Plan of Treatment section includes future care activities for the patient fr om all [place] treatment facilities. This section includes future appointments and fu ture orders which are active, pending or scheduled. Future Appointments This section includes appointments that were scheduled t o occur 6 months from the date of the Encounter, up to a maximum of 20 appointme nts. The data comes from all [facility]. Appointment Date/Time Appointment Type Appointment Facili ty Name Jun 25, 2019 11:00 AM AMBULATORY - NONE [facility] Jun 25, 2019 02:00 PM AMBULATORY - MEDICINE [facility] Jun 28, 2019 02:15 PM AMBULATORY - MEDICINE [facility] Jun 30, 2019 02:15 PM AMBULATORY - MEDICINE [facility] Jul 05, 2019 02:15 PM AMBULATORY - MEDICINE [facility] Aug 31, 2019 02:30 PM AMBULATORY - PSYCHIATRY [facility] Aug 31, 2019 02:35 PM AMBULATORY - PSYCHIATRY [facility] Sep 21, 2019 02:30 PM AMBULATORY PSYCHIATRY [facility] Sep 21, 2019 02:35 PM AMBULATORY - PSYCHIATRY [facility] Dec 17, 2019 02:00 PM AMBULATORY - MEDICINE [facility] Surgical Procedures: All associated to the encounter No Data Provided for This Section Lab Results: +/- 30 days of the encounter This section includes the Chemistry and Hematology Lab R esults on record with AL for the patient. Radiology Reports and Pathology Report s are provided separately, in subsequent sections. Lab Results This section contains the Chemistry/Hematology Results ysabel t were resulted 30 days before or 30 days after the date of the Encounter. Date/Time Source Result Type Result - Unit Interpretation Reference Range Comment Jun 25, 2019 12:44 PM [facility] CBC Specimen Type: BLOOD Comment: See [...] g/dL 32-36 Jun 25, 2019 12:44 PM [facility] DIFFERENTIAL Specimen Type: BLOOD Comment: See manual differential. SEGS 80 % H 36-66 LYMPHS 12 % L 19-53 MONOS 5 % 0-9 EOSINO 3 % 0-8 NORMOCYTIC Yes PLT (ESTM) ADEQ NL Jun 25, 2019 12:44 PM [facility] RENAL PROFILE Specimen Type: SERUM No comment entered. GLUCOSE (FV) 119 mg/dL H 70-110 CHLORIDE (FV) 96 mmol/L L 98-107 SODIUM (FV) 130 mmol/L L 136-145 POTASSIUM (FV) 4.0 mmol/L 3.5-5.1 CO2 (FV) 24 mmol/L 21-32 UREA NITROGEN (FV) 22 mg/dL H 6-20 CALCIUM (FV) 8.6 mg/dL L 8.9-10.3 eGFR 49 CREATININE (FV) 1.43 mg/dL H .61-1.24 Jun 25, 2019 12:44 PM [facility] SERUM PEP(PRO. ELECTROPHO RSIS) Specimen Type: SERUM Comment: SPEP appears normal. No M spike seen. Reviewed by Alec Elias MD, [facility] ALPHA 1 GLOBULINS (G/DL) 0.2 g/dL 0.1-0 .4 ALPHA 2 GLOBULINS (G/DL) 0.8 g/dL 0.4-1 .0 BETA GLOBULINS (G/DL) 0.8 g/dL 0.5-1.1 GAMMA GLOBULINS (G/DL) 1.1 g/dL 0.5-1.7 P.E. TOTAL PROTEIN 6.8 g/dL 6.1-7.9 P.E. ALBUMIN 3.9 g/dL 3.2-5.1 M-SPIKE 0.0 g/dL NOT DETECTED Jun 25, 2019 12:44 PM [facility] KAPPA/LAMBDA LIGHT CHAINS , FREE, SERUM [...] took place. Date/Time Smoking Status/Tobacco Use Comment [facility] it Nov 03, 2018 09:51 AM VA-TOBACCO NEVER USED [place] Oct 24, 2017 10:25 AM V16 LIFETIME NON-TOBACCO USER [place] Oct 24, 2017 10:25 AM V16 TOBACCO USE SCREEN [place] Dec 25, 2016 01:31 PM V16 LIFETIME NON-TOBACCO USER [place] Dec 25, 2016 01:31 PM V16 TOBACCO USE SCREEN [place] Jan 03, 2016 08:51 AM V16 LIFETIME NON-TOBACCO USER [place] Jan 03, 2016 08:51 AM V16 TOBACCO USE SCREEN [place] Dec 27, 2014 04:28 PM V16 LIFETIME NON-TOBACCO USER [place] Dec 27, 2014 04:28 PM V16 TOBACCO USE SCREEN [place] Dec 29, 2013 03:57 PM V16 LIFETIME NON-TOBACCO USER [place] Dec 29, 2013 03:57 PM V16 TOBACCO USE SCREEN [place] Jun 24, 2012 12:25 PM V16 LIFETIME NON-TOBACCO USER [place] Jun 24, 2012 12:25 PM V16 TOBACCO USE SCREEN [place] Dec 18, 2010 01:24 PM V16 LIFETIME NON-TOBACCO USER [place] Dec 18, 2010 01:24 PM V16 TOBACCO USE SCREEN [place] Nov 30, 2009 01:24 PM V16 LIFETIME NON-TOBACCO USER [place] Nov 30, 2009 01:24 PM V16 TOBACCO USE SCREEN [place] Nov 25, 2008 01:22 PM V16 LIFETIME NON-TOBACCO USER SHAE [place]ERS [place] Nov 25, 2008 01:22 PM V16 TOBACCO USE SCREEN [place] Jan 08, 2008 12:49 PM V16 LIFETIME NON-TOBACCO USER [place]HE AKERS [place] Jan 08, 2008 12:49 PM [...] 2001 11:04 AM LIFETIME NON-TOBACCO USER [place] Nov 20, 2000 01:09 PM LIFETIME NON-TOBACCO USER [place] Advance Directives: All historical and current No Data Provided for This Section Allergies and Adverse Reactions (ADRs): All historical and current Section Date Range: From patient's date of to the date document was create d. This section includes Allergies and Adverse Reactions (ADR s) on record with AL for the patient. The data comes from a ll AL treatment facilities. It does not list Allergies/ADRs that were removed or entered in error. Some allergies/ADRs may be reported in t he Immunization section. Allergen Event Date Event Type Reaction(s) Severity Source [place] Feb 07, 2000 Propensity to adverse reactions to drug (diso rder) [place] Medications: VA dispensed (-15 months) and Non-VA Documented (Obtained Outside V A) Section Date Range: 1) prescriptions processed by a VA pharmacy in the last 15 m [facility], and 2) all medications recorded in the AL medical record as "non-VA medic ations". Pharmacy [...] available).Discontinued = A prescription stopped by a AL provider. It is no longer available to be filled. = A prescription which is too old to fill. This does not refer to the expiration date of the medication in the container. Non-VA = A medication that came from someplace other than a [place] pharmacy. This may be a prescription from either the AL or other providers that was filled outside the AL. Or, it may be an over the [...] FOR BLOOD PRESSURE 90 Sep 24, 2020 [id number] Apr 07, 2020 V KESHAWN VAUGHN [facility] ATENOLOL 50MG/CHLORTHALIDONE 25MG TAB Discontinued TA KE 1 TABLET BY MOUTH EVERY MORNING FOR BLOOD PRESSURE 90 Oct 17, 2019 [id number] Jul 26, 2019 V KESHAWN VAU[facility]N [facility] ATORVASTATIN CA 80MG TAB Active TAKE ONE-HALF T ABLET BY MOUTH AT BEDTIME FOR CHOLESTEROL - DO NOT TAKE WITH GRAPEFRUIT JUICE 45 Apr 11, 2021 [id number] Apr 10, 2020 KESHAWN SHERMAN [facility] ATORVASTATIN CA 80MG TAB Discontinued TAKE ONE-HALF T ABLET BY MOUTH AT BEDTIME FOR CHOLESTEROL - DO NOT TAKE WITH GRAPEFRUIT JUICE 45 Dec 23, 2019 [id number] Oct 14, 2019 KESHAWN SHERMAN [facility] CARBOXYMETHYLCELLULOSE NA 0.5% SOLN,OPH INSTILL ONE DROP IN EACH EYE FOUR TIMES DAILY Feb 10, 2020 [id number] Feb 09, 2019 MAGEN CORONA [facility] CARBOXYMETHYLCELLULOSE NA 1% GEL,OPH INS TILL ONE DROP TO EACH EYE TWICE A DAY Feb 10, 2020 [id number] Feb 09, 2019 MAGEN CORONA [facility] CIPROFLOXACIN HCL 500MG TAB Active TAKE ONE TAB LET BY MOUTH TWICE A DAY - ANTIBIOTIC - TAKE UNTIL GONE *TAKE WITH FOOD AND AVOID TAKING WITH DAIRY OR PRODUCTS CONTAINING ALUMINUM, IRON, CALCIUM, OR MAGNESIUM* 14 J 2019 [id number] Apr 12, 2020 ALEXANDRA REYES ILIR [facility] FAMOTIDINE 40MG TAB Active TAKE ONE TABLET BY M OUTH ONCE DAILY FOR STOMACH/REFLUX 30 Apr 12, 2021 [id number] Apr 11, [address] [facility] 40MG TAB Discontinued TAKE ONE TABLET BY M OUTH ONCE DAILY FOR STOMACH/REFLUX 90 Sep 24, 2020 [id number] Dec 29, [address] [facility] FLUTICASONE PROPIONATE 50MCG/SPRAY SOLN,NASAL,16GM Active USE 2 SPRAYS IN NOSE TWICE A DAY SHAKE GENTLY BEFORE USE 3 Apr 11, 2021 [id number] J [address] FLUTICASONE PROPIONATE 50MCG/SPRAY SOLN,NASAL,16GM Discontin ued USE 2 SPRAYS IN NOSE TWICE A DAY SHAKE GENTLY BEFORE USE 3 Dec 23, 2019 [id number] Jul 26, 2019 KESHAWN SHERMAN [facility] IBUPROFEN 600MG TAB Non- VA TAKE ONE TABLET BY MOUTH THREE TIMES DAILY WITH MEALS NEEDED Non-VA Documented by: KESHAWN SHERMAN Docume nted at: [place] MAGNESIUM OXIDE 420MG TAB Active TAKE ONE TABLE T BY MOUTH TWICE A DAY TAKE WITH FOOD 100 Apr 11, 2021 [id number] Apr 10, 2020 KESHAWN SHERMAN [facility] MAGNESIUM OXIDE 420MG TAB Discontinued TAKE ONE TABLE T BY MOUTH TWICE A DAY TAKE WITH FOOD 100 Jan 14, 2020 [id number] Dec 29, 2019 KESHAWN SHERMAN [facility] OMEPRAZOLE 20MG CAP,EC Active TAKE 1 CAPSULE BY MOUTH ONCE DAILY FOR THE STOMACH 90 Dec 30, 2020 [id number] Apr 07, 2020 KESHAWN SHERMAN [facility] OMEPRAZOLE 20MG CAP,EC Discontinued TAKE 1 CAPSULE BY MOUTH ONCE DAILY FOR THE STOMACH 90 Dec 23, 2019 [id number] Oct 14, 2019 KESHAWN SHERMAN [facility] POTASSIUM CHLORIDE 20MEQ TAB,SA (DISPERSIBLE) Active TAKE ONE TABLET BY MOUTH ONCE DAILY WITH FOOD 90 Dec 30, 2020 [id number] Apr 19, 2020 HAMLET SHERMAN [facility] POTASSIUM CHLORIDE 20MEQ TAB,SA (DISPERSIBLE) Discontinued TAKE ONE TABLET BY MOUTH ONCE DAILY WITH FOOD 90 Dec 23, 2019 [id number] Nov 11, 2019 KESHAWN JOHNSON [facility] RANITIDINE HCL 150MG TAB Discontinued TAKE TWO TABLET S BY MOUTH AT BEDTIME FOR STOMACH 180 Dec 23, 2019 [id number] Jul 26, 2019 KESHAWN SHERMAN [place] VENLAFAXINE HCL 37.5MG 24HR CAP,SA Active TAKE 3 CAPSULES BY MOUTH EVERY MORNING FOR MOOD 270 Apr 08, 2021 [id number] Apr 07, 2020 KENA RAGSDALE [facility] VENLAFAXINE HCL 37.5MG 24HR CAP,SA Discontinued TAKE 3 CAPSULES BY MOUTH EVERY MORNING FOR MOOD 270 Jun 01, 2020 [id number] Dec 29, 2019 KENA RAG[place] [facility] VENLAFAXINE HCL 75MG 24HR CAP,SA Discontinued TAKE ON E CAPSULE BY MOUTH EVERY MORNING FOR MOOD 90 Apr 13, 2020 [id number] Apr 13, 2019 KESHAWN SHERMAN [facility] Problems (Conditions): All historical and current Section Date Range: From patient's date of to the date document was create d. This section includes a list of Problems (Conditions) know n to AL for the patient. It includes both active and inacti ve problems (conditions). The data comes from all [place] treatment facilities. 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 [facility] Depression Active 07496933 KESHAWN SHERMAN [place] Gastroesophageal reflux disease (SNOMED CT 106906702) Active [id number] Nov 30, 2009 Entered By: FRANCO HERNANDEZ Comment: hiatal herniaFeb 2009 Entered By: FRANCO HERNANDEZ Comment: schiatzski ringFeb 2010 Entered By: FRANCO HERNANDEZ Comment: omeprazole and Zantac.Jun 24, 2012 Entered By: FRANCO HERNANDEZ Comment: GERD KESHAWN SHERMAN H/O: surgery Active [id number] Aug 21, 2012 Entered By: FRANCO HERNANDEZ [...] HERNANDEZ History of polyp of colon Active 111813224 February 24, 2009 Entered By: FRANCO HERNANDEZ Comment: next colonoscopy 2008 Entered By: FRANCO HERNANDEZ Comment: tubulovilousNov 2011 Entered By: FRANCO HERNANDEZ Comment: AUG 20, 2012@14:08:51 Colonoscopy :Diverticulosis Aug 21, 2012 Entered By: FRANCO HERNANDEZ Comment: Repeat of Colonoscopy in 5 years 2017 Entered By: KESHAWN SHERMAN Comment: he refuses repeat colonoscopy KESHAWN SHERMAN Hyperlipidemia Active 52227484 KESHAWN SHERMAN Hypertension Active 59423125 KESHAWN SHERMAN 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 Dec 28, 2014 Entered By: KESHAWN SHERMAN Comment: Inability to void, was seen March 2013 with catheter placedDec 28, 2014 Entered By: KESHAWN SHERMAN Comment: Now has permanent suprapubic catheterDec 28, 2014 Entered By: KESHAWN SHERMAN Comment: D/c terazosin KESHAWN SHERMAN Impaired glucose tolerance Active 5927056 Dec 31, 2013 Entered By: KESHAWN SHERMAN Comment: A1c 5.9% Dec Entered By: KESHAWN SHERMAN Comment: 5.9% December Entered By: KESHAWN SHERMAN Comment: A1c 5.9% December Entered By: KESHAWN SHERMAN Comment: a1c 6.3% December 2018 KESHAWN SHERMAN Lumbago Active 250343939 KESHAWN SHERMAN Monoclonal gammopathy of uncertain significance Active 113961464 KESHAWN SHERMAN Obesity Active 278.00 Nov 27, [...] 2017 February 24, 2009 Entered By: FRANCO EHRNANDEZ Comment: descending and sigmoidAug 21, 2012 Entered [...] Encounter. Date/Time Encounter Note(s) Provider Source Jun 24, 2019 03:13 PM ADMINISTRATIVE NOTE: LOCAL TITLE: ADMINISTRATIVE NOTE STANDARD TITLE: ADMINISTRATIVE NOTE DATE OF NOTE: JUN 24, 2019@15:13 ENTRY DATE: JUN 24, 2019@15:13:32 AUTHOR: MICHELLE BOWENS EXP COSIGNER: URGENCY: STATUS: COMPLETED ADMINISTRATIVE NOTE Has ADDENDA Vet was unable to complete today's labs but plans to do so tomorrow. pull placed /marilyn/ MICHELLE BOWENS LPN LPN, Primary Care Signed: 06/24/2019 15:14 06/28/2019 ADDENDUM STATUS: COMPLETED Please place a pull to check for 6M lab results on Jun 30. Thank you /neeta BOWENS LPN LPN, Primary Care Signed: 06/28/2019 15:08 Receipt Acknowledged By: 06/29/2019 16:57 /marilyn/ KAM KUMAR [employer]CH[employer] SPECIALIST MICHELLE BOWENS
--- OUTSIDE RECORDS SUMMARY | 2020-04-30 08:17 | XMS REPORT | Encounter Summary ---
Author Author Department of [facility] MARGARET pereira Department of [facility] Address [address] [place] [address] Phone Unavailable Care Team Providers Care Scallop Raker Name Role Phone KESHAWN SHERMAN PCP Unavailable [...] PART A Aug 20, 2011 PART A [id number] [phone] GUILLERMOMARGARET PATIENT MEDICARE (WNR) MEDICARE (M) PART B Aug 20, 2011 PART B [id number] [phone] GUILLERMOMARGARET PATIENT MEDICARE (WNR) MEDICARE (M) PART A Aug 20, 2011 PART A [id number] [id number] [phone] GUILLERMOMARGARET PATIENT MEDICARE (WNR) MEDICARE (M) PART B Aug 20, 2011 PART B [id number] 80A [phone] MARGARET LI PATIENT Selected Encounter This section includes the information on record at [facility] for the Encounter. Date/Time Encounter Type Encounter Description Reason Provider Source Jun 01, 2019 03:00 PM Outpatient Encounter [facility] - IND ICD-10-CM F33.9 Major depressive disorder, recurrent, unspecified with Provider Comments: Depression ([facility] [id number]) MARQUIS RACHEL [facility] IHE Encounter Template Text not used by NE Assessments - Encounter Diagnoses This section includes the primary and secondary diag noses documented for the Encounter. Date/Time Primary/Secondary Diagnosis Diagnosis Name Provider Source Jun 01, 2019 02:51 PM PRIMARY Major depressive disorder, recurrent, unspecified MARQUIS RACHEL [facility] Plan of Treatment: Future Appointments (+ 6 months) and Future Tests (+/- 45 day s) The Plan of Treatment section includes future care activities for the patient fr om all NE treatment facilities. This section includes future appointments and fu ture orders which are active, pending or scheduled. Future Appointments This section includes appointments that were scheduled t o occur 6 months from the date of the Encounter, up to a maximum of 20 appointme nts. The data comes from all [place] treatment facilities. Appointment Date/Time Appointment Type Appointment Facili ty Name Jun 25, 2019 11:00 AM AMBULATORY - NONE [facility] Jun 25, 2019 02:00 PM AMBULATORY - MEDICINE [facility] Jun 28, 2019 02:15 PM AMBULATORY - MEDICINE [facility] Jun 30, 2019 02:15 PM AMBULATORY - MEDICINE [facility] Jul 05, 2019 02:15 PM AMBULATORY - MEDICINE [facility] Aug 31, 2019 02:30 PM AMBULATORY - PS[facility]RY [facility] Aug 31, 2019 02:35 PM [facility] Sep 21, 2019 02:30 PM AMBULATORY [facility] Sep 21, 2019 02:35 PM AMBULATORY - PSYCHIATRY [facility] Surgical Procedures: All associated to the encounter No Data Provided for This Section Lab Results: +/- 30 days of the encounter This section includes the Chemistry and Hematology Lab R esults on record with NE for the patient. Radiology Reports and Pathology Report s are provided separately, in subsequent sections. Lab Results This section contains the Chemistry/Hematology Results ysabel t were resulted 30 days before or 30 days after the date of the Encounter. Date/Time Source Result Type Result - Unit Interpretation Reference Range Comment Jun 25, 2019 12:44 PM [facility] CBC Specimen Type: BLOOD Comment: See [...] g/dL 32-36 Jun 25, 2019 12:44 PM [facility] DIFFERENTIAL Specimen Type: BLOOD Comment: See manual differential. SEGS 80 % H 36-66 LYMPHS 12 % L 19-53 MONOS 5 % 0-9 EOSINO 3 % 0-8 NORMOCYTIC Yes PLT (ESTM) ADEQ NL Jun 25, 2019 12:44 PM [facility] RENAL PROFILE Specimen Type: SERUM No comment entered. GLUCOSE (FV) 119 mg/dL H 70-110 CHLORIDE (FV) 96 mmol/L L 98-107 SODIUM (FV) 130 mmol/L L 136-145 POTASSIUM (FV) 4.0 mmol/L 3.5-5.1 CO2 (FV) 24 mmol/L 21-32 UREA NITROGEN (FV) 22 mg/dL H 6-20 CALCIUM (FV) 8.6 mg/dL L 8.9-10.3 eGFR 49 CREATININE (FV) 1.43 mg/dL H .61-1.24 Jun 25, 2019 12:44 PM [facility] SERUM PEP(PRO. ELECTROPHO RSIS) Specimen Type: SERUM Comment: SPEP appears normal. No M spike seen. Reviewed by Alec Elias MD, [facility] ALPHA 1 GLOBULINS (G/DL) 0.2 g/dL 0.1-0 .4 ALPHA 2 GLOBULINS (G/DL) 0.8 g/dL 0.4-1 .0 BETA GLOBULINS (G/DL) 0.8 g/dL 0.5-1.1 GAMMA GLOBULINS (G/DL) 1.1 g/dL 0.5-1.7 P.E. TOTAL PROTEIN 6.8 g/dL 6.1-7.9 P.E. ALBUMIN 3.9 g/dL 3.2-5.1 M-SPIKE 0.0 g/dL NOT DETECTED Jun 25, 2019 12:44 PM [facility] KAPPA/LAMBDA LIGHT CHAINS , FREE, SERUM [...] in Height Weight Body Mass Index Source Jun 01, 2019 02:48 PM 0 [facility] Jun 01, 2019 02:44 PM 76 /min 115/77 mm[Hg] 18 /min 94 % 0 255.8 lb 38 [facility] Immunizations: All administered on the encounter date [...] Adverse Reactions (ADR s) on record with NE for the patient. The data comes from a ll NE treatment facilities. It does not list Allergies/ADRs [...] VA pharmacy in the last 15 m [facility], and 2) all medications recorded in the NE medical record as "non-VA medic ations". Pharmacy terms refer to VA pharmacy's work on prescriptions. VA patient s are advised to take their medications as instructed by their health care team. The data comes from all NE treatment facilities. Glossary of Pharmacy Terms:Active = A prescription that can be filled at the local NE pharmacy.Active: On Hold = An active prescription that will not be filled until pharmacy resolves the issue.Active: Susp = An active prescription that is not scheduled to be filled yet.Clinic Order = A medication received during a visit to a NE clinic or emergency department (currently not available).Discontinued = A prescription stopped by a NE provider. It is no longer available to be filled. = A prescription which is too old to fill. This does not refer to the expiration date of the medication in the container. Non-VA = A medication that came from someplace other than a NE pharmacy. This may be a prescription from either the NE or other providers that was filled outside the NE. Or, it may be an over the [...] FOR BLOOD PRESSURE 90 Sep 24, 2020 [id number] Apr 07, 2020 V KESHAWN VAUGHN [facility] ATENOLOL 50MG/CHLORTHALIDONE 25MG TAB Discontinued TA KE 1 TABLET BY MOUTH EVERY MORNING FOR BLOOD PRESSURE 90 Oct 17, 2019 [id number] Jul 26, 2019 [facility] ATORVA[facility]IN [facility] 80MG TAB Active TAKE ONE-HALF T ABLET BY MOUTH AT BEDTIME FOR CHOLESTEROL - DO NOT TAKE WITH GRAPEFRUIT JUICE 45 Apr 11, 2021 [id number] Apr 10, 2020 KESHAWN SHERMAN [facility] ATORVASTATIN CA 80MG TAB Discontinued TAKE ONE-HALF T ABLET BY MOUTH AT BEDTIME FOR CHOLESTEROL - DO NOT TAKE WITH GRAPEFRUIT JUICE 45 Dec 23, 2019 [id number] Oct 14, 2019 KESHAWN SHERMAN [facility] CARBOXYMETHYLCELLULOSE NA 0.5% SOLN,OPH INSTILL ONE DROP IN EACH EYE FOUR TIMES DAILY Feb 10, 2020 [id number] Feb 09, 2019 [facility] CARBOXYMETHYLCELLULOSE NA 1% GEL,OPH INS TILL ONE DROP TO EACH EYE TWICE A DAY Feb 10, 2020 [id number] Feb 09, 2019 [facility] CIPROFLOXACIN HCL 500MG TAB Active TAKE ONE TAB LET BY MOUTH TWICE A DAY - ANTIBIOTIC - TAKE UNTIL GONE *TAKE WITH FOOD AND AVOID TAKING WITH DAIRY OR PRODUCTS CONTAINING ALUMINUM, IRON, CALCIUM, OR MAGNESIUM* 14 J 2019 [id number] Apr 12, [address] [facility] FAMOTIDINE 40MG TAB Active TAKE ONE TABLET BY M OUTH ONCE DAILY FOR STOMACH/REFLUX 30 Apr 12, 2021 [id number] Apr 11, 2020 KESHAWN SHERMAN [facility] FAMOTIDINE 40MG TAB Discontinued TAKE ONE TABLET BY M OUTH ONCE DAILY FOR STOMACH/REFLUX 90 Sep 24, 2020 [id number] Dec 29, 2019 KESHAWN SHERMAN [facility] FLUTICASONE PROPIONATE 50MCG/SPRAY SOLN,NASAL,16GM Active USE 2 SPRAYS IN NOSE TWICE A DAY SHAKE GENTLY BEFORE USE 3 Apr 11, 2021 [id number] J 2019 KESHAWN SHERMAN [facility] FLUTICASONE PROPIONATE 50MCG/SPRAY SOLN,NASAL,16GM Discontin ued USE 2 SPRAYS IN NOSE TWICE A DAY SHAKE GENTLY BEFORE USE 3 Dec 23, 2019 [id number] Jul 26, 2019 KESHAWN SHERMAN [facility] IBUPROFEN 600MG TAB Non- VA TAKE ONE TABLET BY MOUTH THREE TIMES DAILY WITH MEALS NEEDED Non-VA Documented by: KESHAWN SHERMAN nted at: [facility] MAGNESIUM OXIDE 420MG TAB Active TAKE ONE TABLE T BY MOUTH TWICE A DAY TAKE WITH FOOD 100 Apr 11, 2021 [id number] Apr 10, 2020 KESHAWN SHERMAN [facility] MAGNESIUM OXIDE 420MG TAB Discontinued TAKE ONE TABLE T BY MOUTH TWICE A DAY TAKE WITH FOOD 100 Jan 14, 2020 [id number] Dec 29, 2019 KESHAWN SHERMAN [facility] OMEPRAZOLE 20MG CAP,EC Active TAKE 1 CAPSULE BY MOUTH ONCE DAILY FOR THE STOMACH 90 Dec 30, 2020 [id number] Apr 07, 2020 KESHAWN SHERMAN [facility] OMEPRAZOLE 20MG CAP,EC Discontinued TAKE 1 CAPSULE BY MOUTH ONCE DAILY FOR THE STOMACH 90 Dec 23, 2019 [id number] Oct 14, 2019 KESHAWN SHERMAN [facility] POTASSIUM CHLORIDE 20MEQ TAB,SA (DISPERSIBLE) Active TAKE ONE TABLET BY MOUTH ONCE DAILY WITH FOOD 90 Dec 30, 2020 [id number] Apr 19, [address] [facility] POTASSIUM CHLORIDE 20MEQ TAB,SA (DISPERSIBLE) Discontinued TAKE ONE TABLET BY MOUTH ONCE DAILY WITH FOOD 90 Dec 23, 2019 [id number] Nov 11, 2019 KESHAWN JOHNSON [facility] RANITIDINE HCL 150MG TAB Discontinued TAKE TWO TABLET S BY MOUTH AT BEDTIME FOR STOMACH 180 Dec 23, 2019 [id number] Jul 26, 2019 KESHAWN SHERMAN [place] VENLAFAXINE HCL 37.5MG 24HR CAP,SA Active TAKE 3 CAPSULES BY MOUTH EVERY MORNING FOR MOOD 270 Apr 08, 2021 [id number] Apr 07, 2020 KENA GLASGOW [facility] VENLAFAXINE HCL 37.5MG 24HR CAP,SA Discontinued TAKE 3 CAPSULES BY MOUTH EVERY MORNING FOR MOOD 270 Jun 01, 2020 [id number] Dec 29, 2019 KENA GLASGOW [facility] VENLAFAXINE HCL 75MG 24HR CAP,SA Discontinued TAKE ON E CAPSULE BY MOUTH EVERY MORNING FOR MOOD 90 Apr 13, 2020 [id number] Apr 13, 2019 KESHAWN SHERMAN [facility] Problems (Conditions): All historical and current Section Date Range: From patient's date of to the date document was create d. This section includes a list of Problems (Conditions) know n to [facility] for the patient. It includes both active and inacti ve problems (conditions). The data comes from all [place] treatment facilities. Problem Status Problem Code Date of Onset Date of Resolution Comm ent(s) Provider Source Allergic rhinitis * (ICD-9-CM 477.9) Active 477.9 [facility] [place] Chronic kidney disease stage 3 Active 940153950 KESHAWN SHERMAN Corneal epithelial dystrophy Active 099386243 [facility] Depression Active 43414904 [facility] Gastroesophageal reflux disease (SNOMED CT [id number]) Active [id number] Nov 30, 2009 Entered By: FRANCO HERNANDEZ Comment: hiatal herniaFeb 2009 Entered By: FRANCO HERNANDEZ Comment: schiatzski ringFeb 2010 Entered By: FRANCO HERNANDEZ Comment: omeprazole and Zantac.Jun 24, 2012 Entered By: FRANCO HERNANDEZ Comment: GERD KESHAWN SHERMAN H/O: surgery Active [id number] Aug 21, 2012 Entered By: FRANCO HERNANDEZ [...] HERNANDEZ History of polyp of colon Active 203204954 February 24, 2009 Entered By: FRANCO HERNANDEZ Comment: next colonoscopy 2008 Entered By: FRANCO HERNANDEZ Comment: tubulovilousNov 2011 Entered By: FRANCO HERNANDEZ Comment: AUG 20, 2012@14:08:51 Colonoscopy :Diverticulosis Aug 21, 2012 Entered By: FRANCO HERNANDEZ Comment: Repeat of Colonoscopy in 5 years 2017 Entered By: KESHAWN SHERMAN Comment: he refuses repeat colonoscopy KESHAWN SHERMAN Hyperlipidemia Active 65291539 KESHAWN SHERMAN Hypertension Active 62625190 KESHAWN SHERMAN Hypotonic bladder Active 520012133 Dec 28, 2014 Entered By: KESHAWN SHERMAN Comment: Inability to void, was seen March 2013 with catheter placedDec 28, 2014 Entered By: KESHAWN SHERMAN Comment: Now has permanent suprapubic catheterDec 28, 2014 Entered By: KESHAWN SHERMAN Comment: D/c terazosin KESHAWN SHERMAN Impaired glucose tolerance Active 0880981 Dec 31, 2013 Entered By: KESHAWN SHERMAN Comment: A1c 5.9% Dec Entered By: KESHAWN SHERMAN Comment: 5.9% December Entered By: KESHAWN SHERMAN Comment: A1c 5.9% December Entered By: KESHAWN SHERMAN Comment: a1c 6.3% December 2018 KESHAWN SHERMAN Lumbago Active 648812872 KESHAWN SHERMAN Monoclonal gammopathy of uncertain significance Active 092018500 KESHAWN SHERMAN Obesity Active 278.00 Nov 27, [...] Inactive 724.2 Dec 25, 2017 MARY JANE ADRIÁNDAJA [place] Noncompliance, Medication Regimen (ICD-9-CM V15.81) [...] Encounter Note(s) Provider Source Jun 01, 2019 02:46 PM MENTAL HEALTH NURSING NOTE: LOCAL TITLE: MENTAL HEALTH NURSE INTAKE STANDARD TITLE: MENTAL HEALTH NURSING NOTE DATE OF NOTE: JUN 01, 2019@14:46 ENTRY DATE: JUN 01, 2019@14:46:11 AUTHOR: MARQUIS RACHEL EXP COSIGNER: URGENCY: STATUS: COMPLETED SUBJECTIVE: [place] presents today for appt with Kena Glasgow APN. is agreeable to [facility] today. Denies SI/HI. Reports he feels more worried and has problems with anger than depression. He is alert and oriented x 3. BP: 115/77 (06/01/2019 14:44) Pain: 0 (06/01/2019 14:44) Height: 69 in [175.3 cm] (12/22/2018 13:07) Weight: 255.8 lb [116.3 kg] (06/01/2019 14:44) Pulse: 76 (06/01/2019 14:44) Respiration: 18 (06/01/2019 14:44) Temperature: 98.2 F [36.8 C] (12/22/2018 12:59) ALLERGIES:PENICILLIN DEPRESSION SCREEN: (x)Positive ()Negative If positive, ()New/Untreated Depression SUICIDAL: (x)No ()Yes If Yes, does patient have a plan? ()Yes ()No PAIN: [x]No []Yes []Chronic or []Acute; Present Pain Level: 0 (06/01/2019 14:44) Comfort Level Scale (0-10): TOBACCO: (x)No ()Yes-Counseled for cessation. Pain Evaluation (Nurse): PAIN EVALUATION: Clinic Location: Mental Health Patient reports no pain present today. Pain Score: 0 /es/ MARQUIS RACHEL RN PRIMARY CARE REGISTERED NURSE-LINDSEY Signed: 06/01/2019 14:[address] [facility]
--- OUTSIDE RECORDS SUMMARY | 2020-04-30 08:18 | XMS REPORT | Encounter Summary ---
Author Author Department [facility] MARGARET pereira Department of [facility] Address [address] [place] [address] Phone Unavailable Care Team Providers Care Retail Mortgage Banker Name Role Phone KESHAWN SHERMAN PCP Unavailable [...] PART A Aug 20, 2011 PART A [id number] [phone] GUILLERMOMARGARET PATIENT MEDICARE (WNR) MEDICARE (M) PART B Aug 20, 2011 PART B [id number] [phone] MARGARET LI PATIENT MEDICARE (WNR) MEDICARE (M) PART A Aug 20, 2011 PART A [id number] [phone] MARGARET LI PATIENT MEDICARE (WNR) MEDICARE (M) PART B Aug 20, 2011 PART B [id number] [phone] MARGARET LI PATIENT Selected Encounter This section includes the information on record at [place] for the Encounter. Date/Time Encounter Type Encounter Description Reason Provider Source May 21, 2019 02:19 PM Outpatient Encounter AUDIOLOGY UNIQUE [place] IHE Encounter Template Text not [...] The data comes from all [place] treatment [facility]. Appointment Date/Time Appointment Type Appointment Facili ty Name Jun 01, 2019 03:00 PM AMBULATORY - [facility] Jun 01, 2019 03:05 PM [facility]ATORY - [facility]ATRY [facility] Jun 25, 2019 11:00 AM [facility] NONE [facility] Jun 25, 2019 02:00 PM [place] Jun 28, 2019 02:15 PM [facility] [place] Jun 30, 2019 02:15 PM [facility] [place] Jul 05, 2019 02:15 PM [facility] [place] [facility] Aug 31, 2019 02:30 PM [facility] Aug 31, 2019 02:35 PM AMBULATORY - PS[facility]CHIATRY [facility] Sep 21, 2019 02:30 PM [facility] Sep 21, 2019 02:35 PM AMBULATORY - PSYCHIATRY [facility] Surgical Procedures: All associated to the encounter [...] and tobacco- related health factors from the VA facility where the Encounter took place. Current Smoking Status This section includes the most current smoking, or tobacco -related health factor, from the [facility] facility where the Encounter took place. Date/Time Current Smoking Status Comment Facility Nov 03, 2018 09:51 AM [place]-[facility] NEVER USED UNIQUE A R Tobacco Use History This section [...] 01:53 PM V16 TOBACCO CESSATION >7 YEARS [facility] [place] Apr 28, 2007 01:53 PM V16 TOBACCO USE SCREEN [place] Sep 29, 2006 01:44 PM V16 TOBACCO CESSATION > 12 MONTHS [facility] [place] [place] Sep 29, 2006 01:44 PM V16 TOBACCO USE SCREEN [place] May 21, 2001 11:04 AM LIFETIME NON-TOBACCO USER JOHNELIEL LEATHA [place] Nov 20, 2000 01:09 PM LIFETIME NON-TOBACCO USER FARIDATOMSHIRAELIEL LEATHA [place] Advance Directives: All historical and [...] VA pharmacy in the last 15 m [facility], and 2) all medications recorded in [...] FOR BLOOD PRESSURE 90 Sep 24, 2020 [id number] Apr 07, 2020 KESHAWN JOHNSON [facility] ATENOLOL 50MG/CHLORTHALIDONE 25MG TAB Discontinued TA KE 1 TABLET BY MOUTH EVERY MORNING FOR BLOOD PRESSURE 90 Oct 17, 2019 [id number] Jul 26, 2019 V KESHAWN VAUGHN [facility] ATORVASTATIN CA 80MG TAB Active TAKE ONE-HALF T ABLET BY MOUTH AT BEDTIME FOR CHOLESTEROL - DO NOT TAKE WITH GRAPEFRUIT JUICE 45 Apr 11, 2021 [id number] Apr 10, 2020 KESHAWN SHERMAN [facility] ATORVASTATIN CA 80MG TAB Discontinued TAKE ONE-HALF T ABLET BY MOUTH AT BEDTIME FOR CHOLESTEROL - DO NOT TAKE WITH GRAPEFRUIT JUICE 45 Dec 23, 2019 [id number] Oct 14, 2019 KESHAWN SHERMAN [facility] CARBOXYMETHYLCELLULOSE NA 0.5% SOLN,OPH INSTILL ONE DROP IN EACH EYE FOUR TIMES DAILY 15 Feb 10, 2020 [id number] Feb 09, 2019 [facility] CARBOXYMETHYLCELLULOSE NA 1% GEL,OPH INS TILL ONE DROP TO EACH EYE TWICE A DAY 15 Feb 10, 2020 [id number] Feb 09, 2019 [facility] CIPROFLOXACIN HCL 500MG TAB Active TAKE ONE TAB LET BY MOUTH TWICE A DAY - ANTIBIOTIC - TAKE UNTIL GONE *TAKE WITH FOOD AND AVOID TAKING WITH DAIRY OR PRODUCTS CONTAINING ALUMINUM, IRON, CALCIUM, OR MAGNESIUM* 14 J 2019 [id number] Apr 12, 2020 ALEXANDRA REYES [facility] FAMOTIDINE 40MG TAB Active TAKE ONE TABLET BY M OUTH ONCE DAILY FOR STOMACH/REFLUX 30 Apr 12, 2021 [id number] Apr 11, 2020 KESHAWN SHERMAN [facility] FAMOTIDINE 40MG TAB Discontinued TAKE ONE TABLET BY M OUTH ONCE DAILY FOR STOMACH/REFLUX 90 Sep 24, 2020 [id number] Dec 29, 2019 KESHAWN SHERMAN [facility] FLUTICASONE PROPIONATE 50MCG/SPRAY SOLN,NASAL,16GM Active USE 2 SPRAYS IN NOSE TWICE A DAY SHAKE GENTLY BEFORE USE 3 Apr 11, 2021 [id number] J 2019 KESHAWN SHERMAN [facility] FLUTICASONE PROPIONATE 50MCG/SPRAY SOLN,NASAL,16GM Discontin ued USE 2 SPRAYS IN NOSE TWICE A DAY SHAKE GENTLY BEFORE USE Dec 23, 2019 [id number] Jul 26, 2019 KESHAWN SHERMAN [facility] IBUPROFEN 600MG TAB Non- VA TAKE ONE TABLET BY MOUTH THREE TIMES DAILY WITH MEALS NEEDED Non-VA Documented by: KESHAWN SHERMAN Docume nted at: UNIQUE DE MAGNESIUM OXIDE 420MG TAB Active TAKE ONE TABLE T BY MOUTH TWICE A DAY TAKE WITH FOOD 100 Apr 11, 2021 [id number] Apr 10, 2020 [facility] MAGNESIUM OXIDE 420MG TAB Discontinued TAKE ONE TABLE T BY MOUTH TWICE A DAY TAKE WITH FOOD 100 Jan 14, 2020 [id number] Dec 29, 2019 KESHAWN SHERMANFAVIAN [facility] OMEPRAZOLE 20MG CAP,EC Active TAKE 1 CAPSULE BY MOUTH ONCE DAILY FOR THE STOMACH 90 Dec 30, 2020 [id number] Apr 07, 2020 [facility] OMEPRAZOLE 20MG CAP,EC Discontinued TAKE 1 CAPSULE BY MOUTH ONCE DAILY FOR THE STOMACH 90 Dec 23, 2019 [id number] Oct 14, 2019 KESHAWN SHERMAN [facility] POTASSIUM CHLORIDE 20MEQ TAB,SA (DISPERSIBLE) Active TAKE ONE TABLET BY MOUTH ONCE DAILY WITH FOOD 90 Dec 30, 2020 [id number] Apr 19, 2020 HAMLET SHERMAN [facility] POTASSIUM CHLORIDE 20MEQ TAB,SA (DISPERSIBLE) Discontinued TAKE ONE TABLET BY MOUTH ONCE DAILY WITH FOOD 90 Dec 23, 2019 [id number] Nov 11, 2019 KESHAWN JOHNSON [facility] RANITIDINE HCL 150MG TAB Discontinued TAKE TWO TABLET S BY MOUTH AT BEDTIME FOR STOMACH 180 Dec 23, 2019 [id number] Jul 26, 2019 KESHAWN SHERMANFAVIAN DE VENLAFAXINE HCL 37.5MG 24HR CAP,SA Active TAKE 3 CAPSULES BY MOUTH EVERY MORNING FOR MOOD 270 Apr 08, 2021 [id number] Apr 07, 2020 KENA RAGSDALE [facility] VENLAFAXINE HCL 37.5MG 24HR CAP,SA Discontinued TAKE 3 CAPSULES BY MOUTH EVERY MORNING FOR MOOD 270 Jun 01, 2020 [id number] Dec 29, 2019 IFEANYI RAG[facility]AL[facility]EAN [facility] VENLAFAXINE HCL 75MG 24HR CAP,SA Discontinued TAKE ON E CAPSULE BY MOUTH EVERY MORNING FOR MOOD 90 Apr 13, 2020 [id number] Apr 13, 2019 KESHAWN SHERMAN [facility] Problems (Conditions): All historical and [...] DE Chronic kidney disease stage 3 Active [id number] KESHAWN SHERMAN Corneal epithelial dystrophy Active 558616520 [facility] Depression Active 65457853 KESHAWN SHERMAN [place] Gastroesophageal reflux disease (SNOMED CT 458659364) Active 2355 85564 Nov 30, 2009 Entered By: FRANCO HERNANDEZ Comment: hiatal herniaFeb 2009 Entered By: FRANCO HERNANDEZ Comment: schiatzski ringFeb 2010 Entered By: FRANCO HERNANDEZ Comment: omeprazole and Zantac.Jun 24, 2012 Entered By: FRANCO HERNANDEZ Comment: GERD KESHAWN SHERMAN H/O: surgery Active [id number] Aug 21, 2012 Entered By: FRANCO HERNANDEZ [...] HERNANDEZ History of polyp of colon Active 834773274 February 24, 2009 Entered By: FRANCO HERNANDEZ Comment: next colonoscopy 2008 Entered By: FRANCO HERNANDEZ Comment: tubulovilousNov 2011 Entered By: FRANCO HERNANDEZ Comment: AUG 20, 2012@14:08:51 Colonoscopy :Diverticulosis Aug 21, 2012 Entered By: FRANCO HERNANDEZ Comment: Repeat of Colonoscopy in 5 years 2017 Entered By: KESHAWN SHERMAN Comment: he refuses repeat colonoscopy KESHAWN SHERMAN Hyperlipidemia Active 55444971 KESHAWN SHERMAN Hypertension Active 67347958 KESHAWN SHERMAN Hypotonic bladder Active 826303135 Dec 28, 2014 Entered By: KESHAWN SHERMAN Comment: Inability to void, was seen March 2013 with catheter placedDec 28, 2014 Entered By: KESHAWN SHERMAN Comment: Now has permanent suprapubic catheterDec 28, 2014 Entered By: KESHAWN SHERMAN Comment: D/c terazosin KESHAWN SHERMAN Impaired glucose tolerance Active 2985674 Dec 31, 2013 Entered By: KESHAWN SHERMAN Comment: A1c 5.9% Dec Entered By: KESHAWN SHERMAN Comment: 5.9% December Entered By: KESHAWN SHERMAN Comment: A1c 5.9% December Entered By: KESHAWN SHERMAN Comment: a1c 6.3% December 2018 KESHAWN SHERMAN Lumbago Active 245474238 KESHAWN SHERMAN Monoclonal gammopathy of uncertain significance Active 442805504 LANEKESHAWNBOAZ [place] Obesity Active 278.00 Nov 27, 2010 E [...] Inactive 401.9 Dec 25, 2017 Sep , 12 Entered By: FRANCO HERNANDEZ Comment: HTNSep [...] the Encounter. Date/Time Encounter Note(s) Provider Source May 21, 2019 02:19 PM AUDIOLOGY ADMINISTRATIVE NOT E: LOCAL TITLE: AUDIOLOGY HEALTH PLASTICS SHEET FINISHING PRESS OPERATOR NOTE STANDARD TITLE: AUDIOLOGY ADMINISTRATIVE NOTE DATE OF NOTE: MAY 21, 2019@14:19 ENTRY DATE: MAY 21, 2019@14:19:19 AUTHOR: LEONOR KEITA EXP COSIGNER: FLORIN CLAY URGENCY: STATUS: COMPLETED AUDIOLOGY HEALTH PLASTICS SHEET FINISHING PRESS OPERATOR NOTE Has ADDENDA Patient dropped of his hearing aids with note that they are not working. Cleaned hearing aids and both are working but are very weak. Sending both hearing aids in for repair. Hearing aid(s) Issued: Make: Phonak Model: Audeo B90 312 Link/Tubin std Domes/Slimtip: Cshell SN(s): Left [id number] Right [id number] Battery: 312 Warranty Expiration date: 05/13/20 /marilyn/ LEONOR KEITA AUDIO HEALTH PLASTICS SHEET FINISHING PRESS OPERATOR - [place] Signed: 05/21/2019 14:20 /marilyn/ FLORIN KOLB/SOMMER PIPE WELDER CHIEF, AUDIOLOGY & SPEECH PATHOLOGY Cosigned: 05/24/2019 09:40 06/02/2019 ADDENDUM STATUS: COMPLETED Received repaired hearing aids. Mailing to patient at [address] [place] [address] /marilyn/ LEONOR KEITA [employer] SHEET FINISHING PRESS OPERATOR - [place] Signed: 06/02/2019 13:20 /marilyn/ FLORIN KOLB/SOMMER PIPE WELDER CHIEF, AUDIOLOGY & SPEECH PATHOLOGY Cosigned: 06/02/2019 15:42 LEONOR KEITA [facility]
--- OUTSIDE RECORDS SUMMARY | 2020-04-30 08:20 | XMS REPORT | Encounter Summary ---
Author Author Department [facility] MARGARET pereira Department [facility] Address [address] [place] [address] Phone Unavailable Care Team Providers Care Pediatric Occupational Therapist Name Role Phone KESHAWN SHERMAN PCP Unavailable [...] PART A Aug 20, 2011 PART A [id number] [phone] GUILLERMOMARGARET PATIENT MEDICARE (WNR) MEDICARE (M) PART B Aug 20, 2011 PART B [id number] [phone] GUILLERMOMARGARET PATIENT MEDICARE (WNR) MEDICARE (M) PART A Aug 20, 2011 PART A [id number] [phone] MARGARET LI PATIENT MEDICARE (WNR) MEDICARE (M) PART B Aug 20, 2011 PART B [id number] [phone] MARGARET LI PATIENT Selected Encounter This section includes the information on record at [place] for the Encounter. Date/Time Encounter Type Encounter Description Reason Provider Source Apr 05, 2020 08:30 AM Outpatient Encounter PRIMARY CARE/MEDICINE [facility] IHE Encounter Template Text not used by [place] Assessments - Encounter Diagnoses No Data Provided [...] The data comes from all [facility]. Appointment Date/Time Appointment Type Appointment Facili ty Name Apr 12, 2020 09:30 AM AMBULATORY - MEDICINE UNIQUE COUNT INCLUDES THE [facility] May 16, 2020 11:00 AM AMBULATORY - NONE [facility] May 24, 2020 02:00 PM AMBULATORY - PSYCHIATRY [facility] Surgical Procedures: All associated to the encounter No Data Provided for This Section Lab Results: +/- 30 days of the encounter This section includes the Chemistry and Hematology Lab R esults on record with [place] for the patient. Radiology Reports and Pathology Report s are provided separately, in subsequent sections. Lab Results This section contains the Chemistry/Hematology Results ysabel t were resulted 30 days before or 30 days after the date of the Encounter. Date/Time Source Result Type Result - Unit Interpretation Reference Range Comment Apr 05, 2020 07:35 AM [facility] MAGNESIUM Specimen Type: SERUM No comment entered. MAGNESIUM (FV) 1.9 mg/dL 1.8-2.4 Apr 05, 2020 07:35 AM [facility] TSH (FV) Specimen Type: SERUM No comment entered. TSH (FV) 1.41 mcIU/mL 0.45-5.33 Apr 05, 2020 07:35 AM [facility] RENAL+LIVER PROFILE Specimen Type: SERUM No comment [...] H .61-1.24 Apr 05, 2020 07:35 AM [facility] CBC Specimen Type: BLOOD No comment entered. [...] K/cmm 0.0-0.2 Apr 05, 2020 07:35 AM [facility] B12 Specimen Type: SERUM No comment entered. VITAMIN B12 (FV) 243 pg/mL 180-914 Apr 05, 2020 07:35 AM [facility] GLYCO HGB A1C Specimen Type: BLOOD No comment entered. Glyco Hgb A1C 6.3 % H 4.2-5.8 Apr 05, 2020 07:35 AM [facility] LIPID PROFILE Specimen Type: SERUM No comment entered. CHOLESTEROL, TOTAL (FV) 186 mg/dL 118-20 0 TRIGLYCERIDE (FV) 114 mg/dL <150 LDL CHOLESTEROL (CALCULATED) 118 HDL CHOLESTEROL (FV) 45 mg/dL >40 Apr 05, 2020 07:35 AM [facility] URINALYSIS Specimen Type: URINE No comment entered. [...] H NEG-74 Apr 05, 2020 07:35 AM [facility] MICROSCOPIC URINALYSIS Specimen Type: URINE Comment: Specimen [...] Adverse Reactions (ADR s) on record with [place] for the patient. The data comes from a [facility] treatment facilities. It does not list Allergies/ADRs that were removed or entered in error. Some allergies/ADRs may be reported in t he Immunization section. Allergen Event Date Event Type Reaction(s) Severity Source PENICILLIN Feb 07, 2000 Propensity to adverse reactions to drug (diso rder) UNIQUE [place] Medications: VA dispensed (-15 months) and Non-VA Documented (Obtained Outside [facility]) Section Date Range: 1) prescriptions processed by a [place] pharmacy in the last 15 m [facility], and 2) all medications recorded [...] that came from someplace other than a [place] pharmacy. This may be a prescription from [...] FOR BLOOD PRESSURE 90 Sep 24, 2020 [id number] Apr 07, 2020 V KESHAWN VAUGHN COUNT INCLUDES THE [facility] ATENOLOL 50MG/CHLORTHALIDONE 25MG TAB Discontinued TA KE 1 TABLET BY MOUTH EVERY MORNING FOR BLOOD PRESSURE 90 Oct 17, 2019 [id number] Jul 26, 2019 V KESHAWN VAUGHN COUNT INCLUDES THE [facility] ATORVASTATIN CA 80MG TAB Active TAKE ONE-HALF T ABLET BY MOUTH AT BEDTIME FOR CHOLESTEROL - DO NOT TAKE WITH GRAPEFRUIT JUICE 45 Apr 11, 2021 [id number] Apr 10, 2020 KESHAWN SHERMAN COUNT INCLUDES THE [facility] ATORVASTATIN [place] 80MG TAB Discontinued TAKE ONE-HALF T ABLET BY MOUTH AT BEDTIME FOR CHOLESTEROL - DO NOT TAKE WITH GRAPEFRUIT JUICE 45 Dec 23, 2019 [id number] Oct 14, 2019 KESHAWN SHERMAN COUNT INCLUDES THE [facility] CARBOXYMETHYLCELLULOSE NA 0.5% SOLN,OPH INSTILL ONE DROP IN EACH EYE FOUR TIMES DAILY 15 Feb 10, 2020 [id number] Feb 09, 2019 [facility] CARBOXYMETHYLCELLULOSE NA 1% GEL,OPH INS TILL ONE DROP TO EACH EYE TWICE A DAY 15 Feb 10, 2020 [id number] Feb 09, 2019 [facility] CIPROFLOXACIN HCL 500MG TAB Active TAKE ONE TAB LET BY MOUTH TWICE A DAY - ANTIBIOTIC - TAKE UNTIL GONE *TAKE WITH FOOD AND AVOID TAKING WITH DAIRY OR PRODUCTS CONTAINING ALUMINUM, IRON, CALCIUM, OR MAGNESIUM* 14 J 2019 [id number] Apr 12, [address] [facility] FAMOTIDINE 40MG TAB Active TAKE ONE TABLET BY M OUTH ONCE DAILY FOR STOMACH/REFLUX 30 Apr 12, 2021 [id number] Apr 11, 2020 KESHAWN SHERMAN COUNT INCLUDES THE [facility] FAMOTIDINE 40MG TAB Discontinued TAKE ONE TABLET BY M OUTH ONCE DAILY FOR STOMACH/REFLUX 90 Sep 24, 2020 [id number] Dec 29, 2019 KESHAWN SHERMAN COUNT INCLUDES THE [facility] FLUTICASONE PROPIONATE 50MCG/SPRAY SOLN,NASAL,16GM Active USE 2 SPRAYS IN NOSE TWICE A DAY SHAKE GENTLY BEFORE USE 3 Apr 11, 2021 [id number] J 2019 KESHAWN SHERMAN COUNT INCLUDES THE [facility] FLUTICASONE PROPIONATE 50MCG/SPRAY SOLN,NASAL,16GM Discontin ued USE 2 SPRAYS IN NOSE TWICE A DAY SHAKE GENTLY BEFORE USE 3 Dec 23, 2019 [id number] Jul 26, 2019 KESHAWN SHERMAN COUNT INCLUDES THE [facility] IBUPROFEN 600MG TAB Non- VA TAKE ONE TABLET BY MOUTH THREE TIMES DAILY WITH MEALS NEEDED Non-VA Documented by: KESHAWN SHREMAN Docume nted at: UNIQUE [place] MAGNESIUM OXIDE 420MG TAB Active TAKE ONE TABLE T BY MOUTH TWICE A DAY TAKE WITH FOOD 100 Apr 11, 2021 [id number] Apr 10, 2020 KESHAWN SHERMAN COUNT INCLUDES THE [facility] MAGNESIUM OXIDE 420MG TAB Discontinued TAKE ONE TABLE T BY MOUTH TWICE A DAY TAKE WITH FOOD 100 Jan 14, 2020 [id number] Dec 29, 2019 KESHAWN SHERMAN COUNT INCLUDES THE [facility] OMEPRAZOLE 20MG CAP,EC Active TAKE 1 CAPSULE BY MOUTH ONCE DAILY FOR THE STOMACH 90 Dec 30, 2020 [id number] Apr 07, 2020 KESHAWN SHERMAN COUNT INCLUDES THE [facility] OMEPRAZOLE 20MG CAP,EC Discontinued TAKE 1 CAPSULE BY MOUTH ONCE DAILY FOR THE STOMACH 90 Dec 23, 2019 [id number] Oct 14, 2019 KESHAWN SHERMAN COUNT INCLUDES THE [facility] POTASSIUM CHLORIDE 20MEQ TAB,SA (DISPERSIBLE) Active TAKE ONE TABLET BY MOUTH ONCE DAILY WITH FOOD 90 Dec 30, 2020 [id number] Apr 19, [address] [facility] POTASSIUM CHLORIDE 20MEQ TAB,SA (DISPERSIBLE) Discontinued TAKE ONE TABLET BY MOUTH ONCE DAILY WITH FOOD 90 Dec 23, 2019 [id number] Nov 11, 2019 KESHAWN JOHNSON COUNT INCLUDES THE [facility] RANITIDINE HCL 150MG TAB Discontinued TAKE TWO TABLET S BY MOUTH AT BEDTIME FOR STOMACH 180 Dec 23, 2019 [id number] Jul 26, 2019 [facility] VENLAFAXINE HCL 37.5MG 24HR CAP,SA Active TAKE 3 CAPSULES BY MOUTH EVERY MORNING FOR MOOD 270 Apr 08, 2021 [id number] Apr 07, 2020 KENA RAGSDALE COUNT INCLUDES THE [facility] VENLAFAXINE HCL 37.5MG 24HR CAP,SA Discontinued TAKE 3 CAPSULES BY MOUTH EVERY MORNING FOR MOOD 270 Jun 01, 2020 [id number] Dec 29, 2019 [facility] VENLAFAXINE HCL 75MG 24HR CAP,SA Discontinued TAKE ON E CAPSULE BY MOUTH EVERY MORNING FOR MOOD 90 Apr 13, 2020 [id number] Apr 13, 2019 KESHAWN SHERMAN COUNT INCLUDES THE [facility] Problems (Conditions): All historical and current Section Date Range: From patient's date of to the date document was create d. This section includes a list of Problems (Conditions) know n to [place] for the patient. It includes both active and inacti ve problems (conditions). The data comes from all [place] treatment facilities. 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 [facility] [place] [facility] Depression Active 33298393 KESHAWN SHERMAN Gastroesophageal reflux disease (SNOMED CT 801189756) Active 2355 65034 Nov 30, 2009 Entered By: FRANCO HERNANDEZ Comment: hiatal herniab 2009 Entered By: FRANCO HERNANDEZ Comment: schiatzski ringFeb 2010 Entered By: FRANCO HERNANDEZ Comment: omeprazole and Zantac.Jun 24, 2012 Entered By: FRANCO HERNANDEZ Comment: GERD KESHAWN SHERMAN H/O: surgery Active [id number] Aug 21, 2012 Entered By: FRANCO HERNANDEZ [...] KESHAWN Muro Hearing loss Active 389.9 [facility] of polyp of colon Active 671644609 February 24, 2009 Entered By: FRANCO HERNANDEZ Comment: next colonoscopy 2008 Entered By: FRANCO HERNANDEZ Comment: tubulovilousNov 2011 Entered By: FRANCO HERNANDEZ Comment: AUG 20, 2012@14:08:51 Colonoscopy :Diverticulosis Aug 21, 2012 Entered By: FRANCO HERNANDEZ Comment: Repeat of Colonoscopy in 5 years 2017 Entered By: KESHAWN SHERMAN Comment: he refuses repeat colonoscopy KESHAWN SHERMAN Hyperlipidemia Active 53033549 KESHAWN SHERMAN Hypertension Active 04175812 KESHAWN SHERMAN 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 Dec 28, 2014 Entered By: KESHAWN SHERMAN Comment: Inability to void, was seen March 2013 with catheter placedDec 28, 2014 Entered By: KESHAWN SHERMAN Comment: Now has permanent suprapubic catheterDec 28, 2014 Entered By: KESHAWN SHERMAN Comment: D/c terazosin KESHAWN SHERMAN Impaired glucose tolerance Active 1496510 Dec 31, 2013 Entered By: KESHAWN SHERMAN Comment: A1c 5.9% Dec Entered By: KESHAWN SHERMAN Comment: 5.9% December Entered By: KESHAWN SHERMAN Comment: A1c 5.9% December Entered By: KESHAWN SHERMAN Comment: a1c 6.3% December 2018 KESHAWN SHERMAN Lumbago Active 780833587 KESHAWN SHERMAN Monoclonal gammopathy of uncertain significance Active 423414670 KESHAWN SHERMAN Obesity Active 278.00 Nov 27, [...] the Encounter. Date/Time Encounter Note(s) Provider Source Apr 05, 2020 04:44 PM PHYSICIAN LETTERS: LOCAL TITLE: RESULTS LETTER STANDARD TITLE: PHYSICIAN LETTERS DATE OF NOTE: APR 05, 2020@16:44 ENTRY DATE: APR 05, 2020@16:44:36 AUTHOR: ALEXANDRA REYES COSIGNER: URGENCY: STATUS: COMPLETED SO ([facility]) [address] [place], [place] [address] [address] APR 05, [address]AR[address] Nicole E [address] [place] [address] [place] [id number] Dear Patient: I am writing to inform you of the results of the test(s) you had done during or shortly after your last visit at the [facility]. The tests below were performed and are satisfactory unless otherwise noted. Urine is showing some bacteria, this has been sent to microbiology for culture. We will watch for results to see. He treated for antibiotic due to urinary tract infection. Your renal labs are elevated. These levels are about the same as the last time they were checked. This indicates that the renal dysfunction is stable. I recommend that you avoid any nonsteroidal anti-inflammatory drugs (NSAIDs) such as ibuprofen, Motrin, naproxen, or Aleve. - Cholesterol Tests (HDL = "good" and LDL = "bad") - Complete Blood Count (red/white blood cell counts and platelets) - Electrolytes including sodium and potassium - Kidney Function - Blood Sugar - Liver Function Test - Thyroid Function Test (TSH) - Urinalysis Specimen: URINE. Specimen Collection Date: Apr 05, 2020@07:35 Test name Result units Ref. range Site Code UA PH 8.00 PH 5 - 9 [6770] UA PROTEIN 1+ QUAL Ref: NEG [6770] UA GLUCOSE NEG QUAL NEG - TRACE [6770] UA KETONES NEG QUAL NEG - TRACE [6770] UA BILI NEG QUAL Ref: NEG [70] UA BLOOD 1+ QUAL NEG - TRACE [70] UA NITRITE 1+ QUAL. Neg. - Neg [70] UA UROBILINOGEN <2.0 mg/dL Ref: Normal: <2 mg/dL UA SPEC GRAV 1.013 1.005 - 1.035 [70] UA COLOR TIFFANY COLORLESS - YELLOW UA APPEARANCE EX TURBID Ref: CLEAR [6770] UA WBC 21-50 H /HPF 0 - 5 [6770] UA RBC 7-10 H /HPF 0 - 2 [6770] UA TRIP MANOHAR VALERIA MANY /HPF 0 - 3 [6770] UA BACTERIA MANY /HPF 0 - FEW [6770] UA LEUK EST [address]/uL NEG - 74 [6770] Comment: Specimen reflexed to culture due to increased WBCs. Specimen: BLOOD. SHELLY [id number] Specimen Collection Date: Apr 05, 2020@07:35 Test name Result units Ref. range Site Code WBC (FV) 14.0 H K/cmm 3.8 - 10.6 [70] RBC (FV) 4.06 L M/cmm 4.4 - 5.9 [70] HGB (FV) 11.7 L g/dL 13 - 18 [70] HCT (FV) 34.9 L % 40 - 52 [70] MCV (FV) 86.0 fL 80 - 100 [70] MCH (FV) 28.9 pg 26 - 34 [70] MCHC (FV) 33.6 g/dL 32 - 36 [70] RDW (FV) 13.9 % 11.5 - 14.5 [70] PLT (FV) 408 K/cmm 150 - 440 [70] MPV (FV) 7.8 fL 7.4 - 10.4 [70] NE% (FV) 79.9 % Ref: SEE ABSOLUTE # NE# (FV) 11.2 H K/cmm 2.4 - 7.6 [6769] LY% (FV) 8.9 % Ref: SEE ABSOLUTE # [70] LY# (FV) 1.2 K/cmm 1.0 - 4.8 [6769] MO% (FV) 6.8 % Ref: SEE ABSOLUTE # [70] MO# (FV) 0.9 K/cmm 0.1 - 1.0 [6769] EO% (FV) 3.3 % Ref: SEE ABSOLUTE # [70] EO# (FV) 0.5 H K/cmm 0.0 - 0.4 [6769] BA% (FV) 1.1 % Ref: SEE ABSOLUTE # [6769] BA# (FV) 0.2 K/cmm 0.0 - 0.2 [6769] Specimen Collection Date: Apr 05, 2020@07:35 Test name Result units Ref. range Site Code TSH (FV) 1.41 mcIU/mL 0.45 - 5.33 [564] VITAMIN B12 (FV) 243 pg/mL 180 - 914 [564] Specimen Collection Date: Apr 05, 2020@07:35 Test name Result units Ref. range Site Code GLUCOSE (FV) 129 H mg/dL 70 - 110 [6770] UREA NITROGEN (FV) 23 H mg/dL 6 - 20 [6770] CREATININE (FV) 1.42 H mg/dL .61 - 1.24 [6770] eGFR 49 [6770] SODIUM (FV) 135 L mmol/L 136 - 145 [6770] POTASSIUM (FV) 3.7 mmol/L 3.5 - 5.1 [6770] CHLORIDE (FV) 98 mmol/L 98 - 107 [6770] CO2 (FV) 27 mmol/L 21 - 32 [6770] CALCIUM (FV) 8.7 L mg/dL 8.9 - 10.3 [6770] TOTAL PROTEIN (FV) 7.6 g/dL 6.1 - 7.9 [6770] ALBUMIN (FV) 3.8 g/dL 3.4 - 5.0 [6770] AST (FV) 17 U/L 15 - 37 [6770] ALT (FV) 14 U/L 0 - 63 [6770] ALK. PHOS. (FV) 90 U/L 32 - 126 [6770] TOTAL BILIRUBIN (FV) 0.62 mg/dL 0.3 - 1.2 [6770] MAGNESIUM (FV) 1.9 mg/dL 1.8 - 2.4 [6770] CHOLESTEROL, TOTAL (FV) 186 mg/dL 118 - 200 [6770] TRIGLYCERIDE (FV) 114 mg/dL Ref: <=150 [6770] HDL CHOLESTEROL (FV) 45 mg/dL Ref: >=40 [6770] LDL CHOLESTEROL (CALCULATED) 118 Please call the [facility] at if you have any questions. Sincerely, ALEXANDRA REYES - ADVANCED PRACTICE NURSE ALEXANDRA REYES [facility]
--- OUTSIDE RECORDS SUMMARY | 2020-04-30 08:20 | XMS REPORT | Encounter Summary ---
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 Date/Time Encounter Type Encounter Description Reason Provider Source Apr 12, 2020 09:30 AM Outpatient Encounter TELEPHONE PRIMARY CAR E ICD-10-CM N39.0 Urinary tract infection, site not specified with Provider Comments: Urinary tract infection, site not specified ALEXANDRA REYES [facility] IHE Encounter Template Text not used by [place] Assessments - Encounter Diagnoses This section includes the primary and secondary diag noses documented for the Encounter. Date/Time Primary/Secondary Diagnosis Diagnosis Name Provider Source Apr 12, 2020 09:30 AM PRIMARY Urinary tract infection, s ite not specified SHAGUFTA LARIOS [facility] Plan of Treatment: Future Appointments (+ 6 months) and Future Tests (+/- 45 day s) The Plan of Treatment section includes future care activities for the patient fr om all [place] treatment facilities. This section includes future appointments and fu ture orders which are active, pending or scheduled. Future Appointments This section includes appointments that were scheduled t o occur 6 months from the date of the Encounter, up to a maximum of 20 appointme nts. The data comes from all [place] treatment facilities. Appointment Date/Time Appointment Type Appointment Facili ty Name May 16, 2020 11:00 AM AMBULATORY - NONE [facility] May 24, 2020 02:00 PM AMBULATORY - PSYCHIATRY [facility] IC Surgical Procedures: All associated to the encounter No Data Provided for This Section Lab Results: +/- 30 days of the encounter This section includes the Chemistry and Hematology Lab R esults on record with [place] for the patient. Radiology Reports and Pathology Report s are provided separately, in subsequent sections. Lab Results This section contains the Chemistry/Hematology Results ysabel t were resulted 30 days before or 30 days after the date of the Encounter. Date/Time Source Result Type Result - Unit Interpretation Reference Range Comment Apr 05, 2020 07:35 AM [facility] MAGNESIUM Specimen Type: SERUM No comment entered. MAGNESIUM (FV) 1.9 mg/dL 1.8-2.4 Apr 05, 2020 07:35 AM [facility] TSH (FV) Specimen Type: SERUM No comment entered. TSH (FV) 1.41 mcIU/mL 0.45-5.33 Apr 05, 2020 07:35 AM [facility] RENAL+LIVER PROFILE Specimen Type: SERUM [...] H .61-1.24 Apr 05, 2020 07:35 AM [facility] CBC Specimen Type: BLOOD No [...] K/cmm 0.0-0.2 Apr 05, 2020 07:35 AM [facility] B12 Specimen Type: SERUM No comment entered. VITAMIN B12 (FV) 243 pg/mL 180-914 Apr 05, 2020 07:35 AM [facility] GLYCO HGB A1C Specimen Type: BLOOD No comment entered. Glyco Hgb A1C 6.3 % H 4.2-5.8 Apr 05, 2020 07:35 AM [facility] LIPID PROFILE Specimen Type: SERUM No comment entered. CHOLESTEROL, TOTAL (FV) 186 mg/dL 118-20 0 TRIGLYCERIDE (FV) 114 mg/dL <150 LDL CHOLESTEROL (CALCULATED) 118 HDL CHOLESTEROL (FV) 45 mg/dL >40 Apr 05, 2020 07:35 AM [facility] URINALYSIS Specimen Type: URINE No [...] H NEG-74 Apr 05, 2020 07:35 AM [facility] MICROSCOPIC URINALYSIS Specimen Type: URINE [...] the patient. The data comes from a [facility] treatment facilities. It does not list Allergies/ADRs [...] [facility] pharmacy in the last 15 m [facility], and 2) all medications recorded in the [place] medical record as "non-VA medic ations". Pharmacy terms refer to [place] pharmacy's work on prescriptions. [facility] patient s are advised to take their medications as instructed by their health care team. The data comes from all [place] treatment facilities. Glossary of Pharmacy Terms:Active = A prescription that can be filled at the local [place] pharmacy.Active: On Hold = An active prescription that will not be filled until pharmacy resolves the issue.Active: Susp = An active prescription that is not scheduled to be filled yet.Clinic Order = A medication received during a visit to a [place] clinic or emergency department (currently not available).Discontinued [...] may be a prescription from either the [place] or other providers that was filled outside the [place]. Or, it may be an over the [...] FOR BLOOD PRESSURE 90 Sep 24, 2020 [id number] Apr 07, 2020 V KESHAWN VAU[facility]N [facility] ATENOLOL 50MG/CHLORTHALIDONE 25MG TAB Discontinued TA KE 1 TABLET BY MOUTH EVERY MORNING FOR BLOOD PRESSURE 90 Oct 17, 2019 [id number] Jul 26, 2019 V KESHAWN [facility]AU[facility]N [facility] ATORVASTATIN CA 80MG TAB Active TAKE ONE-HALF T ABLET BY MOUTH AT BEDTIME FOR CHOLESTEROL - DO NOT TAKE WITH GRAPEFRUIT JUICE 45 Apr 11, 2021 [id number] Apr 10, 2020 KESHAWN SHERMAN [facility] ATORVASTATIN CA 80MG TAB Discontinued TAKE ONE-HALF T ABLET BY MOUTH AT BEDTIME FOR CHOLESTEROL - DO NOT TAKE WITH GRAPEFRUIT JUICE 45 Dec 23, 2019 [id number] Oct 14, 2019 KESHAWN SHERMAN [facility] CARBOXYMETHYLCELLULOSE NA 0.5% SOLN,OPH INSTILL ONE DROP IN EACH EYE FOUR TIMES DAILY 15 Feb 10, 2020 [id number] Feb 09, 2019 [facility] CARBOXYMETHYLCELLULOSE NA 1% GEL,OPH INS TILL ONE DROP TO EACH EYE TWICE A DAY 15 Feb 10, 2020 [id number] Feb 09, 2019 MAGEN COR[facility] CIPROFLOXACIN HCL 500MG TAB Active TAKE ONE TAB LET BY MOUTH TWICE A DAY - ANTIBIOTIC - TAKE UNTIL GONE *TAKE WITH FOOD AND AVOID TAKING WITH DAIRY OR PRODUCTS CONTAINING ALUMINUM, IRON, CALCIUM, OR MAGNESIUM* 14 J 2019 [id number] Apr 12, 2020 ALEXANDRA REYES [facility] FAMOTIDINE 40MG TAB Active TAKE ONE TABLET BY M OUTH ONCE DAILY FOR STOMACH/REFLUX 30 Apr 12, 2021 [id number] Apr 11, 2020 KESHAWN SHERMAN [facility] FAMOTIDINE 40MG TAB Discontinued TAKE ONE TABLET BY M OUTH ONCE DAILY FOR STOMACH/REFLUX 90 Sep 24, 2020 [id number] Dec 29, 2019 KESHAWN SHERMAN [facility] FLUTICASONE PROPIONATE 50MCG/SPRAY SOLN,NASAL,16GM Active USE 2 SPRAYS IN NOSE TWICE A DAY SHAKE GENTLY BEFORE USE 3 Apr 11, 2021 [id number] J 2019 KESHAWN SHERMAN [facility] FLUTICASONE PROPIONATE 50MCG/SPRAY SOLN,NASAL,16GM Discontin ued USE 2 SPRAYS IN NOSE TWICE A DAY SHAKE GENTLY BEFORE USE 3 Dec 23, 2019 [id number] Jul 26, 2019 KESHAWN SHERMAN [facility] IBUPROFEN 600MG TAB Non- [facility] TAKE ONE TABLET BY MOUTH THREE TIMES DAILY WITH MEALS NEEDED Non-VA Documented by: KESHAWN SHERMAN [facility] MAGNESIUM OXIDE 420MG TAB Active TAKE ONE TABLE T BY MOUTH TWICE A DAY TAKE WITH FOOD 100 Apr 11, 2021 [id number] Apr 10, 2020 [facility] MAGNESIUM OXIDE 420MG TAB Discontinued TAKE ONE TABLE T BY MOUTH TWICE A DAY TAKE WITH FOOD 100 Jan 14, 2020 [id number] Dec 29, 2019 [facility] OMEPRAZOLE 20MG CAP,EC Active TAKE 1 CAPSULE BY MOUTH ONCE DAILY FOR THE STOMACH 90 Dec 30, 2020 [id number] Apr 07, 2020 KESHAWN SHERMAN [facility] OMEPRAZOLE 20MG CAP,EC Discontinued TAKE 1 CAPSULE BY MOUTH ONCE DAILY FOR THE STOMACH 90 Dec 23, 2019 [id number] Oct 14, 2019 KESHAWN SHERMAN [facility] POTASSIUM CHLORIDE 20MEQ TAB,SA (DISPERSIBLE) Active TAKE ONE TABLET BY MOUTH ONCE DAILY WITH FOOD 90 Dec 30, 2020 [id number] Apr 19, 2020 HAMLET SHERMAN [facility] POTASSIUM CHLORIDE 20MEQ TAB,SA (DISPERSIBLE) Discontinued TAKE ONE TABLET BY MOUTH ONCE DAILY WITH FOOD 90 Dec 23, 2019 [id number] Nov 11, 2019 [facility] RANITIDINE HCL 150MG TAB Discontinued TAKE TWO TABLET S BY MOUTH AT BEDTIME FOR STOMACH 180 Dec 23, 2019 [id number] Jul 26, 2019 KESHAWN SHERMAN [facility] VENLAFAXINE HCL 37.5MG 24HR CAP,SA Active TAKE 3 CAPSULES BY MOUTH EVERY MORNING FOR MOOD 270 Apr 08, 2021 [id number] Apr 07, 2020 KENA RAGSDALE [facility] VENLAFAXINE HCL 37.5MG 24HR CAP,SA Discontinued TAKE 3 CAPSULES BY MOUTH EVERY MORNING FOR MOOD 270 Jun 01, 2020 [id number] Dec 29, 2019 KENA RAGSDALE [facility] VENLAFAXINE HCL 75MG 24HR CAP,SA Discontinued TAKE ON E CAPSULE BY MOUTH EVERY MORNING FOR MOOD 90 Apr 13, 2020 [id number] Apr 13, 2019 [facility] Problems (Conditions): All historical and current Section Date Range: From patient's date of to the date document was create d. This section includes a list of Problems (Conditions) know n to [facility] for the patient. It includes both active and inacti ve problems (conditions). The data comes from all [place] treatment facilities. 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 [facility] Depression Active 99046823 KESHAWN SHERMAN Gastroesophageal reflux disease (SNOMED CT [id number]) Active 2355 48743 Nov 30, 2009 Entered By: FRANCO HERNANDEZ Comment: hiatal herniaFeb 2009 Entered By: FRANCO HERNANDEZ Comment: schiatzski ringFeb 2010 Entered By: FRANCO HERNANDEZ Comment: omeprazole and Zantac.Jun 24, 2012 Entered By: FRANCO HERNANDEZ Comment: GERD KESHAWN SHERMAN H/O: surgery Active 839639150 Aug 21, 2012 Entered By: FRANCO HERNANDEZ [...] HERNANDEZ History of polyp of colon Active 897875742 February 24, 2009 Entered By: FRANCO HERNANDEZ Comment: next colonoscopy 2008 Entered By: FRANCO HERNANDEZ Comment: tubulovilousNov 2011 Entered By: FRANCO HERNANDEZ Comment: AUG 20, 2012@14:08:51 Colonoscopy :Diverticulosis Aug 21, 2012 Entered By: FRANCO HERNANDEZ Comment: Repeat of Colonoscopy in 5 years 2017 Entered By: KESHAWN SHERMAN Comment: he refuses repeat colonoscopy KESHAWN SHERMAN Hyperlipidemia Active 77203648 KESHAWN SHERMAN Hypertension Active 47198128 KESHAWN SHERMAN 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 Dec 28, 2014 Entered By: KESHAWN SHERMAN Comment: Inability to void, was seen March 2013 with catheter placedDec 28, 2014 Entered By: KESHAWN SHERMAN Comment: Now has permanent suprapubic catheterDec 28, 2014 Entered By: KESHAWN SHERMAN Comment: D/c terazosin KESHAWN SHERMAN Impaired glucose tolerance Active 5842070 Dec 31, 2013 Entered By: KESHAWN SHERMAN Comment: A1c 5.9% Dec Entered By: KESHAWN SHERMAN Comment: 5.9% December Entered By: KESHAWN SHERMAN Comment: A1c 5.9% December Entered By: KESHAWN SHERMAN Comment: a1c 6.3% December 2018 KESHAWN SHERMAN Lumbago Active 501458904 KESHAWN SHERMAN Monoclonal gammopathy of uncertain significance Active 588584595 KESHAWN SHERMAN Obesity Active 278.00 Nov 27, [...] Encounter. Date/Time Encounter Note(s) Provider Source Apr 12, 2020 10:40 AM TELEPHONE ENCOUNTER NOTE: LOCAL TITLE: TELECARE STANDARD TITLE: TELEPHONE ENCOUNTER NOTE DATE OF NOTE: APR 12, 2020@10:40 ENTRY DATE: APR 12, 2020@10:40:25 AUTHOR: ALEXANDRA REYES COSIGNER: URGENCY: STATUS: COMPLETED PATIENT NAME: MARGARET LI SSN: [id number] FUTURE APPOINTMENTS: Apr@11:00 JOP [facility] TM 1 PROVIDER May@14:00 HILL UGALDE MD 1 PATIENT'S HOME PHONE: CULTURE, URINE................ completed: Apr 08, 2020 * BACTERIOLOGY FINAL REPORT => Apr 08, 2020 09:56 TECH CODE: [id number] CULTURE RESULTS: PSEUDOMONAS AERUGINOSA - Quantity: >100,000 CFU/ML Comment: Pseudomonas aeruginosa may develop resistance during prolonged therapy with all antimicrobial agents. Therefore, isolates that are initially susceptible may become resistant within three to four days after initiation of therapy. Testing of repeat isolated may be warranted. ANTIBIOTIC SUSCEPTIBILITY TEST RESULTS: PSEUDOMONAS AERUGINOSA : SUSC INTP AMIKACIN...................... S S CEFEPIME...................... S S CEFTAZIDIME................... S S CIPROFLOXACIN................. S S GENTAMICIN.................... S S IMIPENEM...................... I I LEVOFLOXACIN.................. S S PIPERACILLIN/TAZOBACTAM....... S S TOBRAMYCIN.................... S S Bacteriology Remark(s): Preliminary Report: Immature colonies. Reincubate. Preliminary Report: >100,000 CFU/ML Non-lactose Fermenting Gram Negative Rods ID & sens. to follow. Final Report: >100,000 CFU/ML PSEUDOMONAS AERUGINOSA REASON FOR CALL: Contacted pt by phone to discuss the urine C/S for + UTI. I recommended ABX, Cipro for 7 days. Pt encouraged to drink more water. FOLLOW UP: UTI - Cipro x 7 days, pt to call if symptoms do not improve Time spent <10 minutes /marilyn/ ALEXANDRA REYES [facility] Signed: 04/12/2020 10:41 ALEXANDRA REYES [facility]
--- OUTSIDE RECORDS SUMMARY | 2020-04-30 08:21 | XMS REPORT | Encounter Summary ---
Author Author Department [facility] MARGARET pereira Department [facility] Address [address] [place] [address] Phone Unavailable Care Team Providers Care Host And Hostess Name Role Phone KESHAWN SHERMAN PCP Unavailable [...] PART A Aug 20, 2011 PART A [id number] [phone] GUILLERMOMARGARET PATIENT MEDICARE (WNR) MEDICARE (M) PART B Aug 20, 2011 PART B [id number] [phone] GUILLERMOMARGARET PATIENT MEDICARE (WNR) MEDICARE (M) PART A Aug 20, 2011 PART A [id number] 80A [phone] GUILLERMOMARGARET PATIENT MEDICARE (WNR) MEDICARE (M) PART B Aug 20, 2011 PART B [id number] 80A [phone] MARGARET LI PATIENT Selected Encounter This section includes the information on record at [place] for the Encounter. Date/Time Encounter Type Encounter Description Reason Provider Source Apr 05, 2020 12:26 PM Outpatient [facility] IHE Encounter Template Text not used by [place] Assessments - Encounter Diagnoses No Data Provided for This Section Plan of Treatment: Future Appointments (+ 6 months) and Future Tests (+/- 45 day s) The Plan of Treatment section includes future care activities for the patient fr om all [place] treatment facilities. This section includes future appointments and fu ture orders which are active, pending or scheduled. Future Appointments This section includes appointments that were scheduled t o occur 6 months from the date of the Encounter, up to a maximum of 20 appointme nts. The data comes from all [place] treatment [facility]. Appointment Date/Time Appointment Type Appointment Facili ty Name Apr 12, 2020 09:30 AM AMBULATORY - [facility]ICINE [facility] May 16, 2020 11:00 AM AMBULATORY - NONE [facility] May 24, 2020 02:00 PM AMBUL[facility] - [facility] Surgical Procedures: All associated to the encounter No Data Provided for This Section Lab Results: +/- 30 days of the encounter This section includes the Chemistry and Hematology Lab R esults on record with [place] for the patient. Radiology Reports and Pathology Report s are provided separately, in subsequent sections. Lab Results This section contains the Chemistry/Hematology Results ysabel t were resulted 30 days before or 30 days after the date of the Encounter. Date/Time Source Result Type Result - Unit Interpretation Reference Range Comment Apr 05, 2020 07:35 AM [facility] MAGNESIUM Specimen Type: SERUM No comment entered. MAGNESIUM (FV) 1.9 mg/dL 1.8-2.4 Apr 05, 2020 07:35 AM [facility] TSH (FV) Specimen Type: SERUM No comment entered. TSH (FV) 1.41 mcIU/mL 0.45-5.33 Apr 05, 2020 07:35 AM [facility] RENAL+LIVER PROFILE Specimen Type: SERUM [...] H .61-1.24 Apr 05, 2020 07:35 AM [facility] CBC Specimen Type: BLOOD No [...] K/cmm 0.0-0.2 Apr 05, 2020 07:35 AM [facility] B12 Specimen Type: SERUM No comment entered. VITAMIN B12 (FV) 243 pg/mL 180-914 Apr 05, 2020 07:35 AM [facility] GLYCO HGB A1C Specimen Type: BLOOD No comment entered. Glyco Hgb A1C 6.3 % H 4.2-5.8 Apr 05, 2020 07:35 AM [facility] LIPID PROFILE Specimen Type: SERUM No comment entered. CHOLESTEROL, TOTAL (FV) 186 mg/dL 118-20 0 TRIGLYCERIDE (FV) 114 mg/dL <150 LDL CHOLESTEROL (CALCULATED) 118 HDL CHOLESTEROL (FV) 45 mg/dL >40 Apr 05, 2020 07:35 AM [facility] URINALYSIS Specimen Type: URINE No [...] H NEG-74 Apr 05, 2020 07:35 AM [facility] MICROSCOPIC URINALYSIS Specimen Type: URINE [...] and tobacco- related health factors from the [place] facility where the Encounter took place. Current Smoking Status This section includes the most current smoking, or tobacco -related health factor, from the [place] facility where the Encounter took place. Date/Time Current Smoking Status Comment Facility Mar 29, 2020 10:05 AM V16 TOBACCO USE SCREEN [facility] Tobacco Use History This section includes a history of the smoking, or tobacco -related health factors, that were collected on or before the date of the Encoun ter. The data comes from the [place] facility where the Encounter took place. Date/Time Smoking Status/Tobacco Use Comment [facility] Mar 29, 2020 10:05 AM MI-TOBACCO NEVER USED [facility] Nov 03, 2018 09:51 AM V16 TOBACCO USE SCREEN [facility] [place] Nov 03, 2018 09:51 AM MI-TOBACCO NEVER USED [facility] Oct 24, 2017 10:25 AM V16 LIFETIME NON-TOBACCO USER [place] Oct 24, 2017 10:25 AM V16 TOBACCO USE [place]CREEN [place] Dec 25, 2016 01:31 PM V16 LIFETIME NON-TOBACCO USER [place] Dec 25, 2016 01:31 PM V16 TOBACCO [place] Jan 03, 2016 08:51 AM V16 LIFETIME NON-TOBACCO USER [place] Jan 03, 2016 08:51 AM V16 TOBACCO [place] Dec 27, 2014 04:28 PM V16 LIFETIME NON-TOBACCO USER [place] Dec 27, 2014 04:28 PM V16 TOBACCO [place] Dec 29, 2013 03:57 PM V16 LIFETIME NON-TOBACCO USER [place] Dec 29, 2013 03:57 PM V16 TOBACCO USE [place]CREEN [place] Jun 24, 2012 12:25 PM V16 LIFETIME NON-TOBACCO USER [place] Jun 24, 2012 12:25 PM V16 TOBACCO USE [place]CREEN [place] Dec 18, 2010 01:24 PM V16 LIFETIME NON-TOBACCO USER [place] Dec 18, 2010 01:24 PM V16 TOBACCO USE [place]CREEN [place] Nov 30, 2009 01:24 PM V16 LIFETIME [place]TOBACCO [place] Nov 30, 2009 01:24 PM V16 TOBACCO USE [place]CREEN [place] Nov 25, 2008 01:22 PM V16 LIFETIME NON-TOBACCO USER [place] Nov 25, 2008 01:22 PM V16 TOBACCO USE SCREEN [place] Jan 08, 2008 12:49 PM V16 [...] 21, 2001 11:04 AM LIFETIME NON-TOBACCO USER [facility] Nov 20, 2000 01:09 PM [...] patient. The data comes from a ll [place] treatment facilities. It does not list Allergies/ADRs [...] VA pharmacy in the last 15 m [facility], and 2) all medications recorded in the [place] medical record as "non-VA medic ations". Pharmacy terms refer to VA pharmacy's work on prescriptions. VA patient s are advised to take their medications as instructed by their health care team. The data comes from all [place] treatment facilities. Glossary of Pharmacy Terms:Active = A prescription that can be filled at the local [place] pharmacy.Active: On Hold = An active prescription that will not be filled until pharmacy resolves the issue.Active: Susp = An active prescription that is not scheduled to be filled yet.Clinic Order = A medication received during a visit to a [place] clinic or emergency department (currently not available).Discontinued [...] FOR BLOOD PRESSURE 90 Sep 24, 2020 [id number] Apr 07, 2020 V KESHAWN [facility] ATENOLOL 50MG/CHLORTHALIDONE 25MG TAB Discontinued TA KE 1 TABLET BY MOUTH EVERY MORNING FOR BLOOD PRESSURE 90 Oct 17, 2019 [id number] Jul 26, 2019 V KESHAWN [facility] ATORVASTATIN CA 80MG TAB Active TAKE ONE-HALF T ABLET BY MOUTH AT BEDTIME FOR CHOLESTEROL - DO NOT TAKE WITH GRAPEFRUIT JUICE 45 Apr 11, 2021 [id number] Apr 10, 2020 KESHAWN SHERMAN [facility] ATORVASTATIN CA 80MG TAB Discontinued TAKE ONE-HALF T ABLET BY MOUTH AT BEDTIME FOR CHOLESTEROL - DO NOT TAKE WITH GRAPEFRUIT JUICE 45 Dec 23, 2019 [id number] Oct 14, 2019 KESHAWN SHERMAN [facility] CARBOXYMETHYLCELLULOSE NA 0.5% SOLN,OPH INSTILL ONE DROP IN EACH EYE FOUR TIMES DAILY 15 Feb 10, 2020 [id number] Feb 09, 2019 MAGEN [place]ONA [facility] CARBOXYMETHYLCELLULOSE NA 1% GEL,OPH INS TILL ONE DROP TO EACH EYE TWICE A DAY 15 Feb 10, 2020 [id number] Feb 09, 2019 MAGEN [place] [facility] CIPROFLOXACIN HCL 500MG TAB Active TAKE ONE TAB LET BY MOUTH TWICE A DAY - ANTIBIOTIC - TAKE UNTIL GONE *TAKE WITH FOOD AND AVOID TAKING WITH DAIRY OR PRODUCTS CONTAINING ALUMINUM, IRON, CALCIUM, OR MAGNESIUM* 14 J 2019 [id number] Apr 12, 2020 AWILDA REYES [facility] FAMOTIDINE 40MG TAB Active TAKE ONE TABLET BY M OUTH ONCE DAILY FOR STOMACH/REFLUX 30 Apr 12, 2021 [id number] Apr 11, 2020 KESHAWN SHERMAN [facility] FAMOTIDINE 40MG TAB Discontinued TAKE ONE TABLET BY M OUTH ONCE DAILY FOR STOMACH/REFLUX 90 Sep 24, 2020 [id number] Dec 29, 2019 KESHAWN SHERMAN [facility] FLUTICASONE PROPIONATE 50MCG/SPRAY SOLN,NASAL,16GM Active USE 2 SPRAYS IN NOSE TWICE A DAY SHAKE GENTLY BEFORE USE 3 Apr 11, 2021 [id number] J 2019 KESHAWN SHERMAN [facility] FLUTICASONE PROPIONATE 50MCG/SPRAY SOLN,NASAL,16GM Discontin ued USE 2 SPRAYS IN NOSE TWICE A DAY SHAKE GENTLY BEFORE USE 3 Dec 23, 2019 [id number] Jul 26, 2019 KESHAWN SHERMAN [facility] IBUPROFEN 600MG TAB Non- VA TAKE ONE TABLET BY MOUTH THREE TIMES DAILY WITH MEALS NEEDED Non-VA Documented by: KESHAWN SHERMAN [facility]NESI[facility] OXIDE 420MG TAB Active TAKE ONE TABLE T BY MOUTH TWICE A DAY TAKE WITH FOOD 100 Apr 11, 2021 [id number] Apr 10, 2020 [facility] MAGNESIUM OXIDE 420MG TAB Discontinued TAKE ONE TABLE T BY MOUTH TWICE A DAY TAKE WITH FOOD 100 Jan 14, 2020 [id number] Dec 29, 2019 KESHAWN SHERMAN [facility] OMEPRAZOLE 20MG CAP,EC Active TAKE 1 CAPSULE BY MOUTH ONCE DAILY FOR THE STOMACH 90 Dec 30, 2020 [id number] Apr 07, 2020 KESHAWN SHERMAN [facility] OMEPRAZOLE 20MG CAP,EC Discontinued TAKE 1 CAPSULE BY MOUTH ONCE DAILY FOR THE STOMACH 90 Dec 23, 2019 [id number] Oct 14, 2019 KESHAWN SHERMAN [facility] POTASSIUM CHLORIDE 20MEQ TAB,SA (DISPERSIBLE) Active TAKE ONE TABLET BY MOUTH ONCE DAILY WITH FOOD 90 Dec 30, 2020 [id number] Apr 19, 2020 HAMLET SHERMAN [facility] POTASSIUM CHLORIDE 20MEQ TAB,SA (DISPERSIBLE) Discontinued TAKE ONE TABLET BY MOUTH ONCE DAILY WITH FOOD 90 Dec 23, 2019 [id number] Nov 11, 2019 KESHAWN JOHNSON [facility] RANITIDINE HCL 150MG TAB Discontinued TAKE TWO TABLET S BY MOUTH AT BEDTIME FOR STOMACH 180 Dec 23, 2019 [id number] Jul 26, [address] VENLAFAXINE HCL 37.5MG 24HR CAP,SA Active TAKE 3 CAPSULES BY MOUTH EVERY MORNING FOR MOOD 270 Apr 08, 2021 [id number] Apr 07, 2020 KENA [place] [facility] VENLAFAXINE HCL 37.5MG 24HR CAP,SA Discontinued TAKE 3 CAPSULES BY MOUTH EVERY MORNING FOR MOOD 270 Jun 01, 2020 [id number] Dec 29, 2019 KENA [place] [facility] VENLAFAXINE HCL 75MG 24HR CAP,SA Discontinued TAKE ON E CAPSULE BY MOUTH EVERY MORNING FOR MOOD 90 Apr 13, 2020 [id number] Apr 13, 2019 KESHAWN SHERMAN [facility] Problems (Conditions): All historical and current Section Date Range: From patient's date of to the date document was create d. This section includes a list of Problems (Conditions) know n to [facility] for the patient. It includes both active and inacti ve problems (conditions). The data comes from all [place] treatment facilities. 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 OPC Depression Active 12154640 KESHAWN [place]HRMAN [place] Gastroesophageal reflux disease (SNOMED CT 423789381) Active 2359 37687 Nov 30, 2009 Entered By: FRANCO HERNANDEZ Comment: hiatal herniaNov 30, 2009 Entered By: FRANCO HERNANDEZ Comment: schiatzski ringFeb 2010 Entered By: FRANCO HERNANDEZ Comment: omeprazole and Zantac.Jun 24, 2012 Entered By: FRANCO HERNANDEZ Comment: GERD KESHAWN SHERMAN H/O: surgery Active 630927800 Aug 21, 2012 Entered By: FRANCO HERNANDEZ [...] HERNANDEZ History of polyp of colon Active 808152527 February 24, 2009 Entered By: FRANCO HERNANDEZ Comment: next colonoscopy 2008 Entered By: FRANCO HERNANDEZ Comment: tubulovilousNov 2011 Entered By: FRANCO HERNANDEZ Comment: AUG 20, 2012@14:08:51 Colonoscopy :Diverticulosis Aug 21, 2012 Entered By: FRANCO HERNANDEZ Comment: Repeat of Colonoscopy in 5 years 2017 Entered By: KESHAWN SHERMAN Comment: he refuses repeat colonoscopy KESHAWN SHERMAN Hyperlipidemia Active 14321870 KESHAWN SHERMAN Hypertension Active 45918292 KESHAWN SHERMAN 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 Dec 28, 2014 Entered By: KESHAWN SHERMAN Comment: Inability to void, was seen March 2013 with catheter placedDec 28, 2014 Entered By: KESHAWN SHERMAN Comment: Now has permanent suprapubic catheterDec 28, 2014 Entered By: KESHAWN SHERMAN Comment: D/c terazosin KESHAWN SHERMAN Impaired glucose tolerance Active 0917597 Dec 31, 2013 Entered By: KESHAWN SHERMAN Comment: A1c 5.9% Dec Entered By: KESHAWN SHERMAN Comment: 5.9% December Entered By: KESHAWN SHERMAN Comment: A1c 5.9% December Entered By: KESHAWN SHERMAN Comment: a1c 6.3% December 2018 KESHAWN SHERMAN Lumbago Active 959545911 KESHAWN SHERMAN Monoclonal gammopathy of uncertain significance Active 721854079 KESHAWN SHERMAN Obesity Active 278.00 Nov 27, 2010 E ntered By: FRANCO HERNANDEZ Comment: bmi 36Mar 2010 Entered By: FRANCO HERNANDEZ Comment: bmi [...] Encounter Note(s) Provider Source Apr 05, 2020 12:26 PM ADMINISTRATIVE NOTE: LOCAL TITLE: SCHEDULING NOTE STANDARD TITLE: ADMINISTRATIVE NOTE DATE OF NOTE: APR 05, 2020@12:26 ENTRY DATE: APR 05, 2020@12:26:31 AUTHOR: AWILDA REYES EXP COSIGNER: URGENCY: STATUS: COMPLETED Per Order dated: Mar Attempted to contact patient via [facility] appointment this morning. This provider was able to see the patient on the monitor but not able to hear the patient. We have attempted several phone calls to the patient to reschedule or conduct a telephone visit but have not been able to get hold the patient. Messages have been left twice for the patient to call team one at the [facility]. Will plan on sending a letter or having the T1 nursing unit clerk reschedule the patient for [facility]. Awilda MCGINNIS, Clinical Nurse Specialist [facility] Primary Care Ext. [phone] /es/ AWILDA REYES APN [facility] Signed: 04/05/2020 12:28 Receipt Acknowledged By: * AWAITING SIGNATURE * TIFFANY SHERWOOD NANCY J [place] [facility]
--- OUTSIDE RECORDS SUMMARY | 2020-04-30 08:21 | XMS REPORT | Continuity of Care Document ---
Author Organization Unknown Address Unknown Phone Unavailable Allergies Active Description Code Type Severity Reaction Onset Reported/Identified Relationship to Patient Clinical Status Yes Penicillins [id number] Drug Aller gy Unknown N/A 05/05/2013 Medications There is no [...] OF URINATION 06/23/2013 FABIANA CUELLAR MD Ot 596.5 4 NEUROGENIC BLADDER, NOT OTHERWISE SPECIF 06/23/2013 FABIANA CUELLAR MD Ot 788.2 0 RETENTION OF URINE NOS 12/01/2014 FABIANA CUELLAR MD Ot 596.5 4 12/01/2014 FABIANA CUELLAR MD Ot 788.2 0 12/01/2014 FABIANA CUELLAR MD Ot V72.6 3 12/01/2014 FABIANA CUELLAR MD Ot V74.8 12/01/2014 CAT MCGOWAN DO Ot 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 9 HYPERTENSION NOS 12/01/2014 CAT MCGOWAN DO Ot V58. 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 02/07/2016 CORRINE MOSQUEDA MD Ot Z01.81 0 ENCOUNTER FOR PREPROCEDURAL CARDIOVASCUL 02/07/2016 CORRINE MOSQUEDA MD Ot Z11.2 ENCOUNTER FOR SCREENING FOR OTHER BACTER 02/08/2016 CORRINE MOSQUEDA MD, Ot 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 02/08/2016 CORRINE MOSQUEDA MD Ot Z01.81 0 ENCOUNTER FOR PREPROCEDURAL CARDIOVASCUL 02/08/2016 CORRINE MOSQUEDA MD, Ot Z11.2 ENCOUNTER FOR SCREENING FOR OTHER BACTER 02/08/2016 CORRINE MOSQUEDA MD Ot 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 AN 02/09/2016 CORRINE MOSQUEDA MD, Ot 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 AN 03/27/2016 FABIANA CUELLAR MD Ot 596.5 4 NEUROGENIC BLADDER, NOT OTHERWISE SPECIF 03/27/2016 FABIANA CUELLAR MD Ot 788.2 0 RETENTION OF URINE NOS 03/27/2016 FABIANA CUELLAR MD Ot V72.6 3 PRE-PROCEDURAL LABORATORY EXAMINATION 03/27/2016 FABIANA CUELLAR MD, Ot V74.8 SCREEN-BACTERIAL DIS NEC 03/27/2016 MADY SHARON MINA Ot 805.2 FX DORSAL VERTEBRA-CLOSE 03/27/2016 MADY MINASHARON Ot E000.8 OTHER EXTERNAL CAUSE STATUS 03/27/2016 MADY MINASHARON Ot E888.9 FALL NOS 03/27/2016 MADY MINASHARON Ot S22.009A UNSP FRACTURE OF UNSP THORACIC VERTEBRA, 03/27/2016 MDAY MINASHARON Ot W19.XXXA UNSPECIFIED FALL, INITIAL ENCOUNTER 03/27/2016 MADY MINA SHARON J Carlos Ot Y99.8 OTHER EXTERNAL CAUSE STATUS 09/13/2018 IVETTE SALAS, ULISES Perales Ot E78.00 PURE HYPERCHOLESTEROLEMIA, UNSPECIFIED 09/13/2018 ULISES STEELE MD Ot F32.9 MAJOR DEPRESSIVE DISORDER, SINGLE EPISOD 09/13/2018 ULISES STEELE MD, Ot F41.9 ANXIETY DISORDER, UNSPECIFIED 09/13/2018 ULISES STEELE MD Ot I10 ESSENTIAL (PRIMARY) HYPERTENSION 09/13/2018 ULISES STEELE MD, Ot K21.9 GASTRO-ESOPHAGEAL REFLUX DISEASE WITHOUT 09/13/2018 ULISES STEELE MD, Ot T83.028A DISPLACEMENT OF OTHER URINARY CATHETER, 09/13/2018 ULISES STEELE MD, Ot Z79.51 DETENTION (CURRENT) USE OF INHALED STERO 09/13/2018 ULISES STEELE MD, Ot Z85.828 PERSONAL HISTORY OF OTHER MALIGNANT NEOP 09/13/2018 IVETTE SALAS, ULISES Perales Ot Z88.0 ALLERGY STATUS TO PENICILLIN 09/13/2018 IVETTE SALAS, ULISES Perales Ot Z98.890 OTHER SPECIFIED POSTPROCEDURAL STATES 09/13/2018 FABIANA CUELLAR MD Ot 596.5 4 NEUROGENIC BLADDER, NOT OTHERWISE SPECIF 09/13/2018 FABIANA CUELLAR MD Ot 788.2 0 RETENTION OF URINE NOS 09/13/2018 FABIANA CUELLAR MD Ot V72.6 3 PRE-PROCEDURAL LABORATORY EXAMINATION 09/13/2018 FABIANA CUELLAR MD Ot V74.8 SCREEN-BACTERIAL DIS NEC 09/13/2018 MADY MINA, SHARON Whitman Ot 805.2 FX DORSAL VERTEBRA-CLOSE 09/13/2018 MADY MINASHARON Ot E000.8 OTHER EXTERNAL CAUSE STATUS 09/13/2018 MADY MINA, SHARON Whitman Ot E888.9 FALL NOS 09/13/2018 MADY MINA SHARON Whitman Ot S22.009A UNSP FRACTURE OF UNSP THORACIC VERTEBRA, 09/13/2018 MADY MINA SHARON Whitman Ot W19.XXXA UNSPECIFIED FALL, INITIAL ENCOUNTER 09/13/2018 MADY MINA SHARON Whitman Ot Y99.8 OTHER EXTERNAL CAUSE STATUS 09/15/2018 IVETTE SALAS, ULISES Perales Ot E78.00 PURE HYPERCHOLESTEROLEMIA, UNSPECIFIED 09/15/2018 ULISES STEELE MD Ot F32.9 MAJOR DEPRESSIVE DISORDER, SINGLE EPISOD 09/15/2018 ULISES STEELE MD, Ot F41.9 ANXIETY DISORDER, UNSPECIFIED 09/15/2018 ULISES STEELE MD Ot I10 ESSENTIAL (PRIMARY) HYPERTENSION 09/15/2018 ULISES STEELE MD Ot K21.9 GASTRO-ESOPHAGEAL REFLUX DISEASE WITHOUT 09/15/2018 ULISES STEELE MD Ot T83.028A DISPLACEMENT OF OTHER URINARY CATHETER, 09/15/2018 ULISES STEELE MD Ot Z79.51 DETENTION (CURRENT) USE OF INHALED STERO 09/15/2018 ULISES STEELE MD Ot Z85.828 PERSONAL HISTORY OF OTHER MALIGNANT NEOP 09/15/2018 IVETTE SALAS, ULISES Perales Ot Z88.0 ALLERGY STATUS TO PENICILLIN 09/15/2018 IVETTE SALAS, ULISES Perales Ot Z98.890 OTHER SPECIFIED POSTPROCEDURAL STATES 02/19/2019 CAT MCGOWAN DO Ot Z01.818 ENCOUNTER FOR OTHER PREPROCEDURAL EXAMIN 02/23/2019 CAT MCGOWAN DO Ot 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 9 OBESITY, UNSPECIFIED 02/23/2019 CAT MCGOWAN DO Ot E78. 5 HYPERLIPIDEMIA, UNSPECIFIED 02/23/2019 CAT MCGOWAN DO Ot I10 ESSENTIAL (PRIMARY) HYPERTENSION 02/23/2019 CAT MCGOWAN DO Ot K21. 9 GASTRO-ESOPHAGEAL REFLUX DISEASE WITHOUT 02/23/2019 CAT MCGOWAN DO Ot K44. 9 DIAPHRAGMATIC HERNIA WITHOUT OBSTRUCTION 02/23/2019 CAT MCGOWAN DO Ot K57. 30 DVRTCLOS OF LG INT W/O PERFORATION OR AB 02/23/2019 CAT MCGOWAN DO Ot K63. 5 POLYP OF COLON 02/23/2019 CAT MCGOWAN DO Ot Z12. 11 ENCOUNTER FOR SCREENING FOR MALIGNANT NE 02/23/2019 CAT MCGOWAN DO Ot Z68. 38 BODY MASS INDEX (BMI) 38.0-38.9, ADULT 02/23/2019 CAT MCGOWAN DO Ot Z79.899 OTHER RESCUE INSTRUCTOR (CURRENT) DRUG THERAPY 02/23/2019 CAT MCGOWAN DO Ot Z87. 19 PERSONAL HISTORY OF OTHER DISEASES OF TH 02/23/2019 CAT MCGOWAN DO Ot Z93. 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 9 OBESITY, UNSPECIFIED 03/04/2019 CAT MCGOWAN DO Ot E78. 5 HYPERLIPIDEMIA, UNSPECIFIED 03/04/2019 CAT MCGOWAN DO Ot I10 ESSENTIAL (PRIMARY) HYPERTENSION 03/04/2019 CAT MCGOWAN DO Ot K21. 9 GASTRO-ESOPHAGEAL REFLUX DISEASE WITHOUT 03/04/2019 CAT MCGOWAN DO Ot K44. 9 DIAPHRAGMATIC HERNIA WITHOUT OBSTRUCTION 03/04/2019 CAT MCGOWAN DO Ot K57. 30 DVRTCLOS OF LG INT W/O PERFORATION OR AB 03/04/2019 CAT MCGOWAN DO Ot K63. 5 POLYP OF COLON 03/04/2019 CAT MCGOWAN DO Ot Z12. 11 ENCOUNTER FOR SCREENING FOR MALIGNANT NE 03/04/2019 CAT MCGOWAN DO Ot Z68. 38 BODY MASS INDEX (BMI) 38.0-38.9, ADULT 03/04/2019 CAT MCGOWAN DO Ot Z79.899 OTHER RESCUE INSTRUCTOR (CURRENT) DRUG THERAPY 03/04/2019 CAT MCGOWAN DO Ot Z87. 19 PERSONAL HISTORY OF OTHER DISEASES OF TH 03/04/2019 CAT MCGOWAN DO Ot Z93. 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 9 OBESITY, UNSPECIFIED 03/04/2019 CAT MCGOWAN DO Ot E78. 5 HYPERLIPIDEMIA, UNSPECIFIED 03/04/2019 CAT MCGOWAN DO Ot I10 ESSENTIAL (PRIMARY) HYPERTENSION 03/04/2019 CAT MCGOWAN DO Ot K21. 9 GASTRO-ESOPHAGEAL REFLUX DISEASE WITHOUT 03/04/2019 CAT MCGOWAN DO Ot K44. 9 DIAPHRAGMATIC HERNIA WITHOUT OBSTRUCTION 03/04/2019 CAT MCGOWAN DO Ot K57. 30 DVRTCLOS OF LG INT W/O PERFORATION OR AB 03/04/2019 CAT MCGOWAN DO Ot K63. 5 POLYP OF COLON 03/04/2019 CAT MCGOWAN DO Ot Z12. 11 ENCOUNTER FOR SCREENING FOR MALIGNANT NE 03/04/2019 JUAN M MINA CAT Ribera Ot Z68. 38 BODY MASS INDEX (BMI) 38.0-38.9, ADULT 03/04/2019 JUAN M MINA CAT D Ot Z79.899 OTHER DETENTION (CURRENT) DRUG THERAPY 03/04/2019 JUAN M MINA CAT D Ot Z87. 19 PERSONAL HISTORY OF OTHER DISEASES OF 03/04/2019 LINDA MCGOWAN DOTOM Ribera Ot Z93. 50 UNSPECIFIED CYSTOSTOMY STATUS 03/08/2019 SHARON EARL DO J Carlos Ot 805.2 FX DORSAL VERTEBRA-CLOSE 03/08/2019 SHARON EARL DO J Carlos Ot E000.8 OTHER EXTERNAL CAUSE STATUS 03/08/2019 SHARON EARL DO J Carlos Ot E888.9 FALL NOS 03/08/2019 SHARON EARL DO J Carlos Ot S22.009A UNSP FRACTURE OF UNSP THORACIC VERTEBRA, 03/08/2019 SHARON EARL DO J Carlos Ot W19.XXXA UNSPECIFIED FALL, INITIAL ENCOUNTER 03/08/2019 SHARON EARL DO J Carlos Ot Y99.8 OTHER EXTERNAL CAUSE STATUS 03/14/2019 JOSE MENDEZ Ot E78.00 PURE HYPERCHOLESTEROLEMIA, UNSPECIFIED 03/14/2019 JOSE MENDEZ Ot F32.9 MAJOR DEPRESSIVE DISORDER, SINGLE EPISOD 03/14/2019 JOSE MENDEZ Ot F41.9 ANXIETY DISORDER, UNSPECIFIED 03/14/2019 JOSE MENDEZ Ot I10 ESSENTIAL (PRIMARY) HYPERTENSION 03/14/2019 JOSE MENDEZ Ot K21.9 GASTRO-ESOPHAGEAL REFLUX DISEASE WITHOUT 03/14/2019 JOSE MENDEZ Ot [...] MENDEZ Ot E78.00 PURE HYPERCHOLESTEROLEMIA, UNSPECIFIED 03/18/2019 EYADOTONIEL JOSE Ot F32.9 MAJOR DEPRESSIVE DISORDER, SINGLE EPISOD 03/18/2019 ANDREA JOSE Ot F41.9 ANXIETY DISORDER, UNSPECIFIED 03/18/2019 EYADOT JOSE Ot I10 ESSENTIAL (PRIMARY) HYPERTENSION 03/18/2019 ANDREAJERRYIS Ot K21.9 GASTRO-ESOPHAGEAL REFLUX DISEASE WITHOUT 03/18/2019 JERRY MENDEZIS Ot [...] Ot Z98.890 OTHER SPECIFIED POSTPROCEDURAL STATES 03/18/2019 JERRY MENDEZIS Ot E78.00 PURE HYPERCHOLESTEROLEMIA, UNSPECIFIED 03/18/2019 JERRY MENDEZIS Ot F32.9 MAJOR DEPRESSIVE DISORDER, SINGLE EPISOD 03/18/2019 JERRY MENDEZIS Ot F41.9 ANXIETY DISORDER, UNSPECIFIED 03/18/2019 JERRY MENDEZIS Ot I10 ESSENTIAL (PRIMARY) HYPERTENSION 03/18/2019 JERRY MNEDEZIS Ot K21.9 GASTRO-ESOPHAGEAL REFLUX DISEASE WITHOUT 03/18/2019 JERRY MENDEZIS Ot [...] MENDEZIS Ot Z98.890 OTHER SPECIFIED POSTPROCEDURAL STATES 05/16/2019 IVETTE SALAS, ULISES Perales Ot E78.00 PURE HYPERCHOLESTEROLEMIA, UNSPECIFIED 05/16/2019 IVETTE SALAS, ULISES Perales Ot F32.9 MAJOR DEPRESSIVE DISORDER, SINGLE EPISOD 05/16/2019 ULISES STEELE MD Ot F41.9 ANXIETY DISORDER, UNSPECIFIED 05/16/2019 ULISES STEELE MD Ot I10 ESSENTIAL (PRIMARY) HYPERTENSION 05/16/2019 ULISES STEELE MD Ot K21.9 GASTRO-ESOPHAGEAL REFLUX DISEASE WITHOUT 05/16/2019 ULISES STEELE MD Ot T83.098A [facility] COMPL OF OTHER URINARY CATHETER, IN 05/16/2019 ULISES STEELE MD Ot Z85.828 PERSONAL HISTORY OF OTHER MALIGNANT NEOP 05/16/2019 ULISES STEELE MD Ot Z86.010 PERSONAL HISTORY OF COLONIC POLYPS 05/16/2019 ULISES STEELE MD Ot Z88.0 ALLERGY STATUS TO PENICILLIN 05/19/2019 ULISES STEELE MD Ot E78.00 PURE HYPERCHOLESTEROLEMIA, UNSPECIFIED 05/19/2019 ULISES STEELE MD Ot F32.9 MAJOR DEPRESSIVE DISORDER, SINGLE EPISOD 05/19/2019 ULISES STEELE MD Ot F41.9 ANXIETY DISORDER, UNSPECIFIED 05/19/2019 ULISES STEELE MD Ot I10 ESSENTIAL (PRIMARY) HYPERTENSION 05/19/2019 ULISES STEELE MD Ot K21.9 GASTRO-ESOPHAGEAL REFLUX DISEASE WITHOUT 05/19/2019 ULISES STEELE MD Ot T83.098A [facility] COMPL OF OTHER URINARY CATHETER, [place] 05/19/2019 ULISES STEELE MD Ot Z85.828 PERSONAL HISTORY OF OTHER MALIGNANT NEOP 05/19/2019 ULISES STEELE MD Ot Z86.010 PERSONAL HISTORY OF COLONIC POLYPS 05/19/2019 ULISES STEELE MD Ot Z88.0 ALLERGY STATUS TO PENICILLIN Procedures There is no data. Results There is no data. Encounters ACCT No. Visit Date/Time Discharge Status Pt. Type Provider Facility Loc./Unit Complaint [id number] 09/08/2018 13:00:00 09/08/2018 23:59:5 9 [id number] 05/16/2019 07:46:00 019 09:21:00 DIS Emergency ULISES STEELE MD [facility] ER CATH REPLACEMEN T [id number] 03/14/2019 15:38:00 019 16:18:00 DIS Emergency JOSE MENDEZ [facility] ER NEEDS CATHETER PLACED [id number] 02/23/2019 11:01:00 019 16:20:00 DIS Outpatient CAT MCGOWAN DO [facility] ENDO HX POLYPS/GERD [id number] 02/19/2019 10:39:00 019 13:48:00 DIS Outpatient CAT MCGOWAN DO [facility] PREOP COLONOSCOPY/EGD [id number] 09/13/2018 07:55:00 018 08:30:00 DIS Emergency ULISES STEELE MD [facility] ER CATHETER FELL O [place] [id number] 02/08/2016 09:57:00 016 18:10:00 DIS Outpatient CORRINE MOSQUEDA MD [facility] SDC SQUAMOUS CELL CANCER [id number] 02/07/2016 09:25:00 016 11:03:00 DIS Outpatient CORRINE MOSQUEDA MD [facility] PREOP SQUAMOUS CELL CANCER [id number] 02/27/2015 08:11:00 015 09:44:00 DIS Emergency NICOLE SCOTT DO [facility] ER LOWER GROIN PAIN/UTI SY MPTOMS [id number] 02/21/2015 14:52:00 015 23:59:59 CLS Outpatient SHARON EARL DO [facility] RAD FELL HURT LOW ER BACK, NOT GETTING BETTER [id number] 12/01/2014 07:01:00 015 12:20:00 DIS Outpatient CAT MCGOWAN DO [facility] SDC LESION ON RIGHT SIDE OF NECK [id number] 06/23/2013 06:35:00 013 11:40:00 DIS Outpatient FABIANA CUELLAR MD [facility] SDC NEUROGENIC BLADDER [id number] 06/18/2013 10:05:00 23:59:59 CLS Outpatient FABIANA CUELLAR MD [facility] PREOP NEUROGENIC BLADDER [id number] 04/29/2013 23:50:00 18:00:00 DIS Inpatient SHARON EARL DO [facility] 4TH URINARY TRACT INFECTION,MENTAL STATUS CHANGE [id number] 05/09/2020 09:40:00 P EN Preadmit CAT MCGOWAN DO [facility] ENDO HISTORY OF POLYPS
--- OUTSIDE RECORDS SUMMARY | 2020-04-30 08:21 | XMS REPORT | Encounter Summary ---
Author Author Department [facility] MARGARET pereira Department [facility] Address [address] [place] [address] Phone Unavailable Care Team Providers Care Turn Down Man Name Role Phone KESHAWN SHERMAN PCP Unavailable [...] PART A Aug 20, 2011 PART A [id number] GUILLERMOMARGARET PATIENT MEDICARE (WNR) MEDICARE (M) PART B Aug 20, 2011 PART B [id number] [phone] GUILLERMOMARGARET PATIENT MEDICARE (WNR) MEDICARE (M) PART A Aug 20, 2011 PART A [id number] [phone] GUILLERMOMARGARET PATIENT MEDICARE (WNR) MEDICARE (M) PART B Aug 20, 2011 PART B [id number] [phone] MARGARET LI PATIENT Selected Encounter This section includes the information on record at [place] for the Encounter. Date/Time Encounter Type Encounter Description Reason Provider Source Apr 07, 2020 01:31 PM Outpatient Encounter PRIMARY CARE/MEDICINE [facility] IHE Encounter Template Text not used by [place] Assessments - Encounter Diagnoses No Data Provided [...] The data comes from all [place] [facility]. Appointment Date/Time Appointment Type Appointment Facili ty Name Apr 12, 2020 09:30 AM AMBULATORY - MEDICINE [facility] May 16, 2020 11:00 AM AMBULATORY - NONE [facility] May 24, 2020 02:00 PM AMBULATORY - PSYCHIATRY [facility] IC Surgical Procedures: All associated to [...] Range Comment Apr 05, 2020 07:35 AM [facility] MAGNESIUM Specimen Type: SERUM No comment entered. MAGNESIUM (FV) 1.9 mg/dL 1.8-2.4 Apr 05, 2020 07:35 AM [facility] TSH (FV) Specimen Type: SERUM No comment entered. TSH (FV) 1.41 mcIU/mL 0.45-5.33 Apr 05, 2020 07:35 AM [facility] RENAL+LIVER PROFILE Specimen Type: SERUM No [...] H .61-1.24 Apr 05, 2020 07:35 AM [facility] CBC Specimen Type: BLOOD No comment [...] K/cmm 0.0-0.2 Apr 05, 2020 07:35 AM [facility] B12 Specimen Type: SERUM No comment entered. VITAMIN B12 (FV) 243 pg/mL 180-914 Apr 05, 2020 07:35 AM [facility] GLYCO HGB A1C Specimen Type: BLOOD No comment entered. Glyco Hgb A1C 6.3 % H 4.2-5.8 Apr 05, 2020 07:35 AM [facility] LIPID PROFILE Specimen Type: SERUM No comment entered. CHOLESTEROL, TOTAL (FV) 186 mg/dL 118-20 0 TRIGLYCERIDE (FV) 114 mg/dL <150 LDL CHOLESTEROL (CALCULATED) 118 HDL CHOLESTEROL (FV) 45 mg/dL >40 Apr 05, 2020 07:35 AM [facility] URINALYSIS Specimen Type: URINE No comment [...] H NEG-74 Apr 05, 2020 07:35 AM [facility] MICROSCOPIC URINALYSIS Specimen Type: URINE Comment: [...] and tobacco- related health factors from the [place] facility where the Encounter took place. Current Smoking Status This section includes the most current smoking, or tobacco -related health factor, from the [place] facility where the Encounter took place. Date/Time Current Smoking Status Comment Facility Mar 29, 2020 10:05 AM V16 TOBACCO USE SCREEN [facility] Tobacco Use History This section includes a history of the smoking, or tobacco -related health factors, that were collected on or before the date of the Encoun ter. The data comes from the [place] facility where the Encounter took place. Date/Time Smoking Status/Tobacco Use Comment [place] [facility] Mar 29, 2020 10:05 AM [place]-TOBACCO NEVER USED UNIQUE [place] [facility] Nov 03, 2018 09:51 AM V16 TOBACCO USE SCREEN [facility] [place] Nov 03, 2018 09:51 AM [place]-TOBACCO NEVER USED UNIQUE [place] Oct 24, 2017 [...] [facility] m [facility], and 2) all medications recorded in the [...] FOR BLOOD PRESSURE 90 Sep 24, 2020 [id number] Apr 07, 2020 V KESHAWN VAUGHN [facility] ATENOLOL 50MG/CHLORTHALIDONE 25MG TAB Discontinued TA KE 1 TABLET BY MOUTH EVERY MORNING FOR BLOOD PRESSURE 90 Oct 17, 2019 [id number] Jul 26, 2019 V KESHAWN VAUGHN [facility] ATORVASTATIN CA 80MG TAB Active TAKE ONE-HALF T ABLET BY MOUTH AT BEDTIME FOR CHOLESTEROL - DO NOT TAKE WITH GRAPEFRUIT JUICE 45 Apr 11, 2021 [id number] Apr 10, 2020 KESHAWN SHERMAN [facility] ATORVASTATIN CA 80MG TAB Discontinued TAKE ONE-HALF T ABLET BY MOUTH AT BEDTIME FOR CHOLESTEROL - DO NOT TAKE WITH GRAPEFRUIT JUICE 45 Dec 23, 2019 [id number] Oct 14, 2019 KESHAWN SHERMAN [facility] CARBOXYMETHYLCELLULOSE NA 0.5% SOLN,OPH INSTILL ONE DROP IN EACH EYE FOUR TIMES DAILY 15 Feb 10, 2020 [id number] Feb 09, 2019 MAGEN CORONA [facility] CARBOXYMETHYLCELLULOSE NA 1% GEL,OPH INS TILL ONE DROP TO EACH EYE TWICE A DAY 15 Feb 10, 2020 [id number] Feb 09, 2019 MAGEN [facility] CIPROFLOXACIN HCL 500MG TAB Active TAKE ONE TAB LET BY MOUTH TWICE A DAY - ANTIBIOTIC - TAKE UNTIL GONE *TAKE WITH FOOD AND AVOID TAKING WITH DAIRY OR PRODUCTS CONTAINING ALUMINUM, IRON, CALCIUM, OR MAGNESIUM* 14 J 2019 [id number] Apr 12, 2020 ALEXANDRA REYES [facility] FAMOTIDINE 40MG TAB Active TAKE ONE TABLET BY M OUTH ONCE DAILY FOR STOMACH/REFLUX 30 Apr 12, 2021 [id number] Apr 11, 2020 KESHAWN SHERMAN [facility] FAMOTIDINE 40MG TAB Discontinued TAKE ONE TABLET BY M OUTH ONCE DAILY FOR STOMACH/REFLUX 90 Sep 24, 2020 [id number] Dec 29, 2019 KESHAWN SHERMAN [facility] FLUTICASONE PROPIONATE 50MCG/SPRAY SOLN,NASAL,16GM Active USE 2 SPRAYS IN NOSE TWICE A DAY SHAKE GENTLY BEFORE USE 3 Apr 11, 2021 [id number] J 2019 KESHAWN SHERMAN [facility] FLUTICASONE PROPIONATE 50MCG/SPRAY SOLN,NASAL,16GM Discontin ued USE 2 SPRAYS IN NOSE TWICE A DAY SHAKE GENTLY BEFORE USE 3 Dec 23, 2019 [id number] Jul 26, 2019 KESHAWN SHERMAN [facility] IBUPROFEN 600MG TAB Non- [facility] TAKE ONE TABLET BY MOUTH THREE TIMES DAILY WITH MEALS NEEDED Non-[facility] Documented by: KESHAWN SHERMAN Docume nted at: [facility] MAGNESIUM OXIDE 420MG TAB Active TAKE ONE TABLE T BY MOUTH TWICE A DAY TAKE WITH FOOD 100 Apr 11, 2021 [id number] Apr 10, 2020 [facility] 420MG TAB Discontinued TAKE ONE TABLE T BY MOUTH TWICE A DAY TAKE WITH FOOD 100 Jan 14, 2020 [id number] Dec 29, 2019 KESHAWN SHERMAN [facility] OMEPRAZOLE 20MG CAP,EC Active TAKE 1 CAPSULE BY MOUTH ONCE DAILY FOR THE STOMACH 90 Dec 30, 2020 [id number] Apr 07, 2020 KESHAWN SHERMAN [facility] OMEPRAZOLE 20MG CAP,EC Discontinued TAKE 1 CAPSULE BY MOUTH ONCE DAILY FOR THE STOMACH 90 Dec 23, 2019 [id number] Oct 14, 2019 KESHAWN SHERMAN [facility] POTASSIUM CHLORIDE 20MEQ TAB,SA (DISPERSIBLE) Active TAKE ONE TABLET BY MOUTH ONCE DAILY WITH FOOD 90 Dec 30, 2020 [id number] Apr 19, 2020 HAMLET SHERMAN [facility] POTASSIUM CHLORIDE 20MEQ TAB,SA (DISPERSIBLE) Discontinued TAKE ONE TABLET BY MOUTH ONCE DAILY WITH FOOD 90 Dec 23, 2019 [id number] Nov 11, 2019 KESHAWN JOHNSON [facility] RANITIDINE HCL 150MG TAB Discontinued TAKE TWO TABLET S BY MOUTH AT BEDTIME FOR STOMACH 180 Dec 23, 2019 [id number] Jul 26, 2019 KESHAWN SHERMAN [place] VENLAFAXINE HCL 37.5MG 24HR CAP,SA Active TAKE 3 CAPSULES BY MOUTH EVERY MORNING FOR MOOD 270 Apr 08, 2021 [id number] Apr 07, 2020 KENA RAG[place] [facility] VENLAFAXINE HCL 37.5MG 24HR CAP,SA Discontinued TAKE 3 CAPSULES BY MOUTH EVERY MORNING FOR MOOD 270 Jun 01, 2020 [id number] Dec 29, 2019 KENA RAGSDALE [place] VENLAFAXINE HCL 75MG 24HR CAP,SA Discontinued TAKE ON E CAPSULE BY MOUTH EVERY MORNING FOR MOOD 90 Apr 13, 2020 [id number] Apr 13, 2019 KESHAWN SHERMAN [facility] Problems (Conditions): All historical and [...] BARAJAS Chronic kidney disease stage 3 Active 582378747 KESHAWN SHERMAN [place] Corneal epithelial dystrophy Active 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 [facility] Depression Active 96375903 KESHAWN SHERMAN [place] Gastroesophageal reflux disease (SNOMED CT 413540811) Active 2352 71108 Nov 30, 2009 Entered By: FRANCO HERNANDEZ Comment: hiatal herniaNov 30, 2009 Entered By: FRANCO HERNANDEZ Comment: schiatzski ringFeb 2010 Entered By: FRANCO HERNANDEZ Comment: omeprazole and Zantac.Jun 24, 2012 Entered By: FRANCO HERNANDEZ Comment: GERD KESHAWN SHERMAN H/O: surgery Active 947028122 Aug 21, 2012 Entered By: FRANCO HERNANDEZ [...] HERNANDEZ History of polyp of colon Active 027040185 February 24, 2009 Entered By: FRANCO HERNANDEZ Comment: next colonoscopy 2008 Entered By: FRANCO HERNANDEZ Comment: tubulovilousNov 2011 Entered By: FRANCO HERNANDEZ Comment: AUG 20, 2012@14:08:51 Colonoscopy :Diverticulosis Aug 21, 2012 Entered By: FRANCO HERNANDEZ Comment: Repeat of Colonoscopy in 5 years 2017 Entered By: KESHAWN SHERMAN Comment: he refuses repeat colonoscopy KESHAWN SHERMAN Hyperlipidemia Active 10324433 KESHAWN SHERMAN Hypertension Active 67430888 KESHAWN SHERMAN Hypotonic bladder Active 896711840 Dec 28, 2014 Entered By: KESHAWN SHERMAN Comment: Inability to void, was seen March 2013 with catheter placedDec 28, 2014 Entered By: KESHAWN SHERMAN Comment: Now has permanent suprapubic catheterDec 28, 2014 Entered By: KESHAWN SHERMAN Comment: D/c terazosin KESHAWN SHERMAN Impaired glucose tolerance Active 6019946 Dec 31, 2013 Entered By: KESHAWN SHERMAN Comment: A1c 5.9% Dec Entered By: KESHAWN SHERMAN Comment: 5.9% December Entered By: KESHAWN SHERMAN Comment: A1c 5.9% December Entered By: KESHAWN SHERMAN Comment: a1c 6.3% December 2018 KESHAWN SHERMAN Lumbago Active 594804276 KESHAWN SHERMAN Monoclonal gammopathy of uncertain significance Active 484913286 KESHAWN SHERMAN Obesity Active 278.00 Nov 27, [...] Encounter. Date/Time Encounter Note(s) Provider Source Apr 07, 2020 01:31 PM ADMINISTRATIVE NOTE: LOCAL TITLE: ADMINISTRATIVE NOTE STANDARD TITLE: ADMINISTRATIVE NOTE DATE OF NOTE: APR 07, 2020@13:31 ENTRY DATE: APR 07, 2020@13:31:52 AUTHOR: CATARINO FITZPATRICK COSIGNER: URGENCY: STATUS: COMPLETED ADMINISTRATIVE NOTE Has ADDENDA Larned called today for request to have medications refilled/renewed. 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 /neeta HOPKINS Signed: 04/07/2020 13:37 04/07/2020 ADDENDUM STATUS: COMPLETED Spoke with Nano at extension [phone] for relay of information /neeta HOPKINS Signed: 04/07/2020 13:41 CATARINO FITZPATRICK [facility]
[2020-04-30 08:29] LABS: BASOPHILS % (AUTO) 0 % (0-10); EOSINOPHILS # (AUTO) 0.3 10^3/uL (0.0-0.3); EOSINOPHILS % (AUTO) 3 % (0-10); HEMATOCRIT 34 % (40-54); HEMOGLOBIN 11.2 G/DL (13.3-17.7); LYMPHOCYTES # (AUTO) 1.3 X 10^3 (1.0-4.0); LYMPHOCYTES % (AUTO) 10 % (12-44); MEAN CORPUSCULAR HEMOGLOBIN 28 PG (25-34); MEAN CORPUSCULAR HGB CONC 33 G/DL (32-36); MEAN CORPUSCULAR VOLUME 86 FL (80-99); MONOCYTES % (AUTO) 8 % (0-12); NEUTROPHILS # (AUTO) 10.1 X 10^3 (1.8-7.8); NEUTROPHILS % (AUTO) 79 % (42-75); PLATELET COUNT 353 10^3/uL (130-400); RED CELL DISTRIBUTION WIDTH 13.1 % (10.0-14.5); WHITE BLOOD COUNT 12.8 10^3/uL (4.3-11.0)
[2020-04-30] MEDS ORDERED: ONDANSETRON 4 MG/2 ML (SDV) Z0FRAN IVP ONE (08:30)
[2020-04-30] MEDS ORDERED: SCOPOLAMINE 1.5 MG (TRANSDERM-SCOP) PATCH TD ONE (08:30)
[2020-04-30] MEDS ORDERED: MECLIZINE 25 MG (ANTIVERT) TAB PO ONE (08:30)
[2020-04-30 08:41] LABS: ALBUMIN 3.6 GM/DL (3.2-4.5); CHLORIDE 99 MMOL/L (98-107); POTASSIUM 3.6 MMOL/L (3.6-5.0); SODIUM 135 MMOL/L (135-145)
[2020-04-30 08:43] LABS: CALCIUM 8.7 MG/DL (8.5-10.1)
[2020-04-30 08:44] LABS: GLUCOSE 125 MG/DL (70-105); INR 0.9 (0.8-1.4); PROTHROMBIN TIME PATIENT 12.8 SEC (12.2-14.7); TOTAL PROTEIN 7.1 GM/DL (6.4-8.2)
[2020-04-30 08:45] LABS: CARBON DIOXIDE 23 MMOL/L (21-32)
[2020-04-30 08:46] LABS: BILIRUBIN,TOTAL 0.3 MG/DL (0.1-1.0)
[2020-04-30 08:47] LABS: ALKALINE PHOSPHATASE 99 U/L (40-136); CREATININE SERUM 1.36 MG/DL (0.60-1.30); GFR ESTIMATED 51
[2020-04-30 08:49] LABS: BUN/CREATININE RATIO 13
[2020-04-30 08:50] LABS: ALANINE AMINOTRANSFERASE 14 U/L (0-55)
[2020-04-30 08:51] LABS: CREATINE KINASE 66 U/L (30-200)
--- NOTE | 2020-04-30 09:08 | Diagnostic Imaging Report ---
PROCEDURE: CT head wo r/o stroke. TECHNIQUE: Multiple contiguous axial images were obtained through the brain without the use of intravenous contrast. Auto Exposure Controls were utilized during the CT exam to meet ALARA standards for radiation dose reduction. INDICATION: Dizziness. COMPARISON: None. FINDINGS: Moderate generalized cerebral and cerebellar parenchymal volume loss. No CT evidence for territorial infarction. No intracranial hemorrhage, mass effect, hydrocephalus or extra-axial fluid collections. Osseous structures are intact. Mild mucosal thickening in the right maxillary sinus. IMPRESSION: No acute intracranial CT findings. Dictated by: Dictated on workstation # [id number]
--- NOTE | 2020-04-30 09:13 | ED General ---
General Chief Complaint: Dizziness/Syncope Stated Complaint: DIZZY Nursing Triage Note: PT BROUGHT IN BY [facility] FROM HOME WITH COMPLAINT OF DIZZINESS THAT STARTED LAST NIGHT. Nursing Sepsis Screen: No Definite Risk Source of Information: Patient History of Present Illness Date Seen by Provider: Apr 30, 2020 Time Seen by Provider: 08:10 Initial Comments PT ARRIVES VIA EMS FROM HOME STATES HE WOKE UP AT 0500 THIS MORNING AND WAS DIZZY--WAS FINE WHEN HE WENT TO BED LAST NIGHT STATES HE HAS DRY HEAVES WITH THE DIZZINESS C/O BEING OFF BALANCE WHEN HE TRIES TO WALK HAS NOT FALLEN OR HIT HIS HEAD NO HEADACHE NO VISION CHANGES NO PARESTHESIAS OR MOTOR DEFICITS NO CHEST PAIN NO SHORTNESS OF BREATH NO PALPITATIONS NO FEVER OR RECENT ILLNESS NO ABDOMINAL PAIN HAS HAD NORMAL NASAL CONGESTION FROM ALLERGIES, NOT USING ALLERGY MEDICATION/SPRAYS RIGHT NOW STATES SYMPTOMS ONLY WHEN HE MOVES OR TRIES TO WALK--HAS NO SYMPTOMS WHEN HE IS LAYING DOWN HAD SAME THING ONE TIME, YEARS AGO--UNKNOWN CAUSE, WENT AWAY ON IT'S OWN PT HAS INDWELLING ARZOLA CATHETER FOR 4-5 YEARS FOR NEUROGENIC BLADDER--HAS HAD UTI'S, BUT NOT BEEN ON ANTIBIOTICS RECENTLY IS DUE FOR CATHETER CHANGE NO CHANGES IN MEDICATIONS OR MISSED DOSES OF MEDICATIONS NO HISTORY OF STROKE/TIA OR HEART PROBLEMS PT IS NOT ON BLOOD THINNERS PCP: DR. EARL UROLOGIST: DR. CUELLAR Allergies and Home Medications Allergies Coded Allergies: Penicillins (Verified Allergy, Unknown, 05/05/13) Reacted as a child per uncoded allergy Home Medications Atenolol/Chlorthalidone 1 Each Tablet, 1 EACH PO DAILY, (Reported) Atorvastatin Calcium 40 Mg Tablet, 20 MG PO HS, (Reported) take 1/2 of 40 mg tab Magnesium Oxide 420 Mg Tablet, 420 MG PO BID, (Reported) Meclizine HCl 25 Mg Tablet, 50 MG PO Q6 PRN for DIZZINESS Prescribed by: NICOLE SCOTT on 04/30/20 1041 Omeprazole 20 Mg Tablet.dr, 20 MG PO DAILY, (Reported) Ondansetron 4 Mg Tab.rapdis, 4 MG PO Q4H Prescribed by: NICOLE SCOTT on 04/30/20 1041 Potassium Chloride 20 Meq Tablet.er, 20 MEQ PO BID, (Reported) Ranitidine HCl 150 Mg Tablet, 300 MG PO HS, (Reported) take 2 (150mg) tabs Scopolamine 1 Each Patch.td72, 1 EACH TD Q72H Prescribed by: NICOLE SCOTT on 04/30/20 1041 Sulfamethoxazole/Trimethoprim 1 Each Tablet, 1 EACH PO BID Prescribed by: NICOLE SCOTT on 04/30/20 1041 Venlafaxine HCl 75 Mg Tab.er.24, 75 MG PO DAILY, (Reported) Patient Home Medication List Home Medication List Reviewed: Yes Review of Systems Review of Systems Constitutional: see HPI; No chills, No diaphoresis; dizziness; No fever, No malaise, No weakness EENTM: No hearing loss, No ear pain, No blurred vision, No double vision, No vision loss, No nose congestion, No throat pain Respiratory: no symptoms reported; No cough, No short of breath Cardiovascular: no symptoms reported; No chest pain, No edema, No palpitations, No syncope Gastrointestinal: see HPI; No abdominal pain, No constipation, No diarrhea; nausea (DRY HEAVES) Genitourinary: see HPI (INDWELLING ARZOLA) Musculoskeletal: no symptoms reported; No back pain, No neck pain Skin: no symptoms reported Psychiatric/Neurological: See HPI (DIZZINESS); Denies Headache, Denies Numbness, Denies Paresthesia, Denies Seizure, Denies Tingling, Denies Weakness Hematologic/Lymphatic: No Symptoms Reported Immunological/Allergic: no symptoms reported Past Jofwxqt-Dwkoph-Tybtkb Hx Patient Social History Alcohol Use: Denies Use Recreational Drug Use: No Smoking Status: Never a Smoker 2nd Hand Smoke Exposure: No Recent Foreign Travel: No Contact w/Someone Who Travel: No Recent Infectious Disease Expo: No Recent Hopitalizations: No Immunizations Up To Date Tetanus Booster (TDap): Unknown Date of Pneumonia Vaccine: Jun 23, 2012 Date of Influenza Vaccine: Jul 20, 2014 Seasonal Allergies Seasonal Allergies: Yes Past Medical History Surgeries: Yes (lesion from neck, suprapubic cath, foot) Bladder Surgery Respiratory: No Cardiac: Yes High Cholesterol, Hypertension Neurological: No Reproductive Disorders: No Genitourinary: Yes (suprapubic catheter) Gastrointestinal: Yes Gastroesophageal Reflux, Hemorrhoids, Polyps Musculoskeletal: No Endocrine: No HEENT: Yes Double Vision Hearing Impairment: Bilateral Hearing Aide Cancer: Yes Skin Psychosocial: Yes Anxiety, Depression Integumentary: Yes (skin ca) Blood Disorders: No Adverse Reaction/Blood Tranf: No Family Medical History No Pertinent Family Hx Physical Exam Vital Signs Vital Signs - First Documented 04/30/20 08:11 Temp 36.4 Pulse 82 Resp 12 B/P (MAP) 127/68 (87) Pulse Ox 92 O2 Delivery Room Air Capillary Refill : Less Than 3 Seconds Height, Weight, BMI Height: 5'8.00" Weight: 155lbs. 0.0oz. [id number]; 36.00 BMI Method:Stated General Appearance: No Apparent Distress, WD/WN, Other (SMILING, TALKATIVE, PLEASANT. 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) Neck: Full Range of Motion, Normal Inspection, Non Tender, Supple; No Carotid Bruit, No JVD Respiratory: Normal Breath Sounds, No Accessory Muscle Use, No Respiratory Distress Cardiovascular: Regular Rate, Rhythm, No Edema, No JVD, No Murmur, Normal Peripheral Pulses Gastrointestinal: Non Tender, Soft Back: No CVA Tenderness Extremity: Normal Capillary Refill, Normal Inspection, Normal Range of Motion, Non Tender, No Calf Tenderness, No Pedal Edema Neurologic/Psychiatric: Alert, Oriented x3, No Motor/Sensory Deficits, Normal Mood/Affect, 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 Norm as Tested Skin: Normal Color, Warm/Dry Focused Exam Lactate Level 04/30/20 08:15: Lactic Acid Level 1.34 Lactic Acid Level Progress/Results/Core Measures Suspected Sepsis Recent Fever Within 48 Hours: No Infection Criteria Present: None New/Unexplained Altered Menta: No Sepsis Screen: No Definite Risk SIRS Temperature: Pulse: 82 Respiratory Rate: 12 Laboratory Tests 04/30/20 08:15: White Blood Count 12.8H Blood Pressure 127 /68 Mean: 87 04/30/20 08:15: Lactic Acid Level 1.34 Laboratory Tests 04/30/20 08:15: Creatinine 1.36H, INR Comment 0.9, Platelet Count 353, Total Bilirubin 0.3 Results/Orders Lab Results Laboratory Tests Test 04/30/20 08:15 04/30/20 08:45 04/30/20 09:02 Range/Units White Blood Count 12.8 H 4.3-11.0 10^3/uL Red Blood Count 3.95 L 4.35-5.85 10^6/uL Hemoglobin 11.2 L 13.3-17.7 G/DL Hematocrit 34 L 40-54 % Mean Corpuscular Volume 86 80-99 FL Mean Corpuscular Hemoglobin 28 25-34 PG Mean Corpuscular Hemoglobin Concent 33 32-36 G/DL Red Cell Distribution Width 13.1 10.0-14.5 % Platelet Count 353 130-400 10^3/uL Mean Platelet Volume 10.0 7.4-10.4 FL Neutrophils (%) (Auto) 79 H 42-75 % Lymphocytes (%) (Auto) 10 L 12-44 % Monocytes (%) (Auto) 8 0-12 % Eosinophils (%) (Auto) 3 0-10 % Basophils (%) (Auto) 0 0-10 % Neutrophils # (Auto) 10.1 H 1.8-7.8 X 10^3 Lymphocytes # (Auto) 1.3 1.0-4.0 X 10^3 Monocytes # (Auto) 1.0 0.0-1.0 X 10^3 Eosinophils # (Auto) 0.3 0.0-0.3 10^3/uL Basophils # (Auto) 0.0 0.0-0.1 10^3/uL Prothrombin Time 12.8 12.2-14.7 SEC INR Comment 0.9 0.8-1.4 Activated Partial Thromboplast Time 30 24-35 SEC Sodium Level 135 135-145 MMOL/L Potassium Level 3.6 3.6-5.0 MMOL/L Chloride Level 99 98-107 MMOL/L Carbon Dioxide Level 23 21-32 MMOL/L Anion Gap 13 5-14 MMOL/L Blood Urea Nitrogen 18 7-18 MG/DL Creatinine 1.36 H 0.60-1.30 MG/DL Estimat Glomerular Filtration Rate 51 BUN/Creatinine Ratio 13 Glucose Level 125 H 70-105 MG/DL Lactic Acid Level 1.34 0.50-2.00 MMOL/L Calcium Level 8.7 8.5-10.1 MG/DL Corrected Calcium 9.0 8.5-10.1 MG/DL Magnesium Level 2.0 1.6-2.4 MG/DL Total Bilirubin 0.3 0.1-1.0 MG/DL Aspartate Amino Transf (AST/SGOT) 17 5-34 U/L Alanine Aminotransferase (ALT/SGPT) 14 0-55 U/L Alkaline Phosphatase 99 40-136 U/L Total Creatine Kinase 66 30-200 U/L Creatine Kinase MB 1.0 <6.6 NG/ML Myoglobin 46.3 10.0-92.0 NG/ML Troponin I < 0.028 <0.028 NG/ML Total Protein 7.1 6.4-8.2 GM/DL Albumin 3.6 3.2-4.5 GM/DL Glucometer 120 H 70-110 MG/DL Urine Color YELLOW Urine Clarity TURBID Urine pH 7.5 5-9 Urine Specific [place] 1.015 L 1.016-1.022 Urine Protein TRACE H NEGATIVE Urine Glucose (UA) NEGATIVE NEGATIVE Urine Ketones NEGATIVE NEGATIVE Urine Nitrite NEGATIVE NEGATIVE Urine Bilirubin NEGATIVE NEGATIVE Urine Urobilinogen 0.2 < = 1.0 MG/DL Urine Leukocyte Esterase 3+ H NEGATIVE Urine RBC (Auto) TRACE-L NEGATIVE Urine RBC 2-5 H /HPF Urine WBC 50-100 H /HPF Urine Squamous Epithelial Cells NONE /HPF Urine Crystals NONE /LPF Urine Bacteria NEGATIVE /HPF Urine Casts NONE /LPF Urine Mucus NEGATIVE /LPF Urine Culture Indicated YES Micro Results Microbiology 04/30/20 Blood Culture - Preliminary, Resulted No growth 04/30/20 Urine Culture - Preliminary, Resulted Myroides odoratimimus 04/30/20 Blood Culture - Preliminary, Resulted No growth My Orders Orders - NICOLE SCOTT DO Accucheck Stat ONCE (04/30/20 08:11) Ed Iv/Invasive Line Start (04/30/20 08:11) Ekg Tracing (04/30/20 08:11) Monitor-Rhythm Ecg Trace Only (04/30/20 08:11) Ct Head Wo-R/O Stroke (04/30/20 08:11) Chest 1 View, Ap/Pa Only (04/30/20 08:11) Cbc With Automated Diff (04/30/20 08:11) Comprehensive Metabolic Panel (04/30/20 08:11) Creatine Kinase (04/30/20 08:11) Creatine Kinase Mb (04/30/20 08:11) Magnesium (04/30/20 08:11) Protime With Inr (04/30/20 08:11) Partial Thromboplastin Time (04/30/20 08:11) Ua Culture If Indicated (04/30/20 08:11) Myoglobin Serum (04/30/20 08:11) Troponin I (04/30/20 08:11) Catheter(Urinary) Insert & Ass 03,15 (04/30/20 08:19) Scopolamine Patch (Transderm-Scop Patch) (04/30/20 08:30) Meclizine Tablet (Antivert Tablet) (04/30/20 08:30) Ondansetron Injection (Zofran Injectio (04/30/20 08:30) Lactic Acid Analyzer (04/30/20 09:06) Blood Culture (04/30/20 09:06) Ct Angio Head/Neck (04/30/20 09:19) Ed Iv/Invasive Line Start (04/30/20 09:19) Ns Iv 1000 Ml (Sodium Chloride 0.9%) (04/30/20 09:19) Urine Culture (04/30/20 09:02) Iohexol Injection (Omnipaque 350 Mg/Ml 1 (04/30/20 09:30) Received Contrast (Hold Metformin- Contr (04/30/20 09:30) Ns (Ivpb) (Sodium Chloride 0.9% Ivpb Bag (04/30/20 09:30) Cefepime Injection (Maxipime Injection) (04/30/20 10:00) Medications Given in ED Vital Signs/I&O Capillary Refill : Less Than 3 Seconds Blood Pressure Mean: 87 Point of Care Testing Finger Stick Blood Glucose: 120 Blood Glucose Action Taken: rn notified Progress Note : Progress Note UNEVENTFUL ER STAY SYMPTOMS IMPROVED AT DISMISSAL ECG Initial ECG Impression Date: Apr 30, 2020 Initial ECG Impression Time: 08:33 Initial ECG Rate: 73 Initial ECG Rhythm: Normal Sinus Diagnostic Imaging Comments CT HEAD--PER RADIOLOGIST REPORT AT 0917 FINDINGS: Moderate generalized cerebral and cerebellar parenchymal volume loss. No CT evidence for territorial infarction. No intracranial hemorrhage, mass effect, hydrocephalus or extra-axial fluid collections. Osseous structures are intact. Mild mucosal thickening in the right maxillary sinus. IMPRESSION: No acute intracranial CT findings. CXR--NO ACUTE PROCESS, PER RADIOLOGIST REPORT CT ANGIOGRAM HEAD/NECK--PER RADIOLOGIST REPORT AT 1035 Discussion: CT head: No acute intracranial hemorrhage, mass, midline shift, or hydrocephalus. Mild diffuse brain volume loss is likely age related, stable. The visualized portions of the orbits, paranasal sinuses, mastoid air cells, and calvarium are unremarkable. CTA head: Intracranial arterial luminal enhancement and morphology are normal without focal stenosis, major vessel cut off, aneurysm, or vascular malformation. The [place] of [place] is complete. Visualized venous structures are unremarkable. CT neck: The arch has conventional branch configuration. The vertebral arteries are left dominant. The carotid arteries bifurcate midneck without focal stenosis, vessel cut off, or vascular malformation within the neck. The visualized soft tissues are unremarkable. Degenerative disease is noted within the cervical spine. Thyroid gland appears multinodular and enlarged on the left and to lesser degree on the right. Recommend nonemergent thyroid ultrasound to further evaluate. Impression: 1. Unremarkable CTA of the head and neck. 2. Nodularity of the thyroid gland is indeterminate. Recommend nonemergent thyroid ultrasound. Reviewed: Reviewed by Me Departure Impression Primary Impression: Vertigo Additional Impressions: Urinary tract infection UTI (urinary tract infection) due to urinary indwelling Arzola catheter Disposition: HOME, SELF-CARE Condition: Stable Departure-Patient Inst. Referrals: SHARON EARL DO (PCP/Family) Primary Care Physician Patient Instructions: Vertigo (a Type of Dizziness) (DC), Urinary Tract Infection, Adult (DC), How to Prevent Catheter Associated Urinary Tract Infections Add. Discharge Instructions: CONTINUE YOUR REGULAR MEDICATIONS PRESCRIBED SLOW POSITION CHANGES LEAVE SCOPOLAMINE PATCH IN PLACE FOR 72 HOURS FOLLOW UP WITH YOUR DR IN 2-3 DAYS FOR FURTHER CARE, RETURN TO ER IF WORSE All discharge instructions reviewed with patient and/or family. Voiced understanding. Scripts Sulfamethoxazole/Trimethoprim (Bactrim Ds Tablet) 1 Each Tablet 1 EACH PO BID, #20 TAB Prov: NICOLE SCOTT DO 04/30/20 Ondansetron (Ondansetron Odt) 4 Mg Tab.rapdis 4 MG PO Q4H for Nausea/Vomiting, #10 TAB Prov: NICOLE SCOTT DO 04/30/20 Scopolamine (Transderm-Scop) 1 Each Patch.td72 1 EACH TD Q72H, #3 PATCH Prov: NICOLE SCOTT DO 04/30/20 Meclizine HCl (Meclizine HCl) 25 Mg Tablet 50 MG PO Q6 PRN for DIZZINESS, #20 TAB Prov: NICOLE SCOTT DO 04/30/20 NICOLE SCOTT DO Apr 30, 2020 09:13
[2020-04-30 09:15] LABS: BILIRUBIN,URINE NEGATIVE (NEGATIVE); CLARITY,URINE TURBID; COLOR,URINE YELLOW; GLUCOSE, URINE (UA) NEGATIVE (NEGATIVE); KETONES,URINE NEGATIVE (NEGATIVE); LEUKOCYTE ESTERASE ,URINE 3+ (NEGATIVE); NITRITE,URINE NEGATIVE (NEGATIVE); PH,URINE 7.5 (5-9); PROTEIN,URINE TRACE (NEGATIVE)
[2020-04-30] MEDS ORDERED: NS IV 1000 ML 1,000 ML IV SCH (09:19)
[2020-04-30 09:23] LABS: BACTERIA,URINE NEGATIVE /HPF; WBC,URINE 50-100 /HPF
--- NOTE | 2020-04-30 09:27 | Diagnostic Imaging Report ---
Indication: Dyspnea and dizziness. Comparison: 05/04/2013. Discussion: Single portable upright view of the chest was obtained. Cardiomegaly is new. No failure. Elevated right hemidiaphragm. No consolidation, pleural fluid, or pneumothorax. No osseous abnormality. Impression: 1. New cardiomegaly without failure. Dictated by: Dictated on workstation # [id number]
[2020-04-30] MEDS ORDERED: NS 100 ML (IVPB) BAG IV ONE (09:30)
[2020-04-30] MEDS ORDERED: IOHEXOL 350 MG/ML 100 ML (OMNIPAQUE 350) VIAL IV ONE (09:30)
[2020-04-30] MEDS ORDERED: HOLD METFORMIN - RECEIVED CONTRAST 20 ML VIAL IV SCH (09:30)
[2020-04-30] MEDS ORDERED: CEFEPIME INJECTION 1,000 MG in WATER (STERILE) FOR INJECTION 10 ML IV ONE (10:00)
--- NOTE | 2020-04-30 10:16 | Diagnostic Imaging Report ---
PROCEDURE: CT angiography of the head and CT angiography of the neck with and without contrast. TECHNIQUE: Contiguous noncontrast images were obtained from the skull base through the vertex. After intravenous contrast administration, helical CT angiography of the neck was performed. Source data was reformatted into 3D MIP projections. Delayed post contrast acquisition was also obtained. Auto Exposure Controls were utilized during the CT exam to meet ALARA standards for radiation dose reduction. Indication: New onset dizziness, altered mental status. Comparison: Head CT same date. Discussion: CT head: No acute intracranial hemorrhage, mass, midline shift, or hydrocephalus. Mild diffuse brain volume loss is likely age related, stable. The visualized portions of the orbits, paranasal sinuses, mastoid air cells, and calvarium are unremarkable. CTA head: Intracranial arterial luminal enhancement and morphology are normal without focal stenosis, major vessel cut off, aneurysm, or vascular malformation. The [place] of [place] is complete. Visualized venous structures are unremarkable. CT neck: The arch has conventional branch configuration. The vertebral arteries are left dominant. The carotid arteries bifurcate midneck without focal stenosis, vessel cut off, or vascular malformation within the neck. The visualized soft tissues are unremarkable. Degenerative disease is noted within the cervical spine. Thyroid gland appears multinodular and enlarged on the left and to lesser degree on the right. Recommend nonemergent thyroid ultrasound to further evaluate. Impression: 1. Unremarkable CTA of the head and neck. 2. Nodularity of the thyroid gland is indeterminate. Recommend nonemergent thyroid ultrasound. Dictated by: Dictated on workstation # [id number]
[2020-04-30] MEDS ORDERED: ONDA4TAB11 PO (10:41)
[2020-04-30] MEDS ORDERED: MECL-149 PO (10:41)
[2020-04-30] MEDS ORDERED: SULF1TAB35 PO (10:41)
[2020-04-30] MEDS ORDERED: SCOP1PAT11 TD (10:41)
[2020-04-30 12:18] VITALS: BP 123/65
[2020-05-02] MEDS ORDERED: FAMO40TA6 PO (13:32)
[2020-05-02] MEDS ORDERED: ATOR80TA76 PO (13:32)
[2020-05-02] MEDS ORDERED: VNL37.5T PO (13:32)
== END 2020-04-30 12:18 | disposition home or self-care (01) ==
LOC: EDUNIT# 08:08 → ER 08:09
DX: R42 Dizziness and giddiness (principal); T83.511A Infection and inflammatory reaction due to indwelling urethral catheter, initial encounter; N39.0 Urinary tract infection, site not specified; E78.00 Pure hypercholesterolemia, unspecified; I10 Essential (primary) hypertension; K21.9 Gastro-esophageal reflux disease without esophagitis; F41.9 Anxiety disorder, unspecified; F32.9 Major depressive disorder, single episode, unspecified; Z88.0 Allergy status to penicillin; Z85.828 Personal history of other malignant neoplasm of skin
CPT/HCPCS: 36415; 70450; 70496; 70498; 71045; 80053; 81000; 82550; 82553; 82962; 83605; 83735; 83874; 84484; 85025; 85610; 85730; 87040; 87077; 87088; 93005; 93041

== ENCOUNTER 2020-05-04 07:15 | Outpatient (RCR) | payer MEDICARE, MEDICAID ==
[~2020-05-04] VITALS: Ht 175 cm; Wt 111.0 kg
[~2020-05-04 07:15] MED LIST changes: +ATOR80TA76 PO; +FAMO40TA6 PO; +MECL-149 PO; +ONDA4TAB11 PO; +SCOP1PAT11 TD; +SULF1TAB35 PO; +VNL37.5T PO
== END 2020-05-04 10:32 | disposition home or self-care (01) ==
LOC: PREOP 07:15
PROVIDERS: ATTEND Surgery
DX: Z01.812 Encounter for preprocedural laboratory examination (principal); Z20.828 Contact with and (suspected) exposure to other viral communicable diseases
CPT/HCPCS: 87635

== ENCOUNTER 2020-05-08 07:35 | Outpatient (RCR) | payer MEDICARE, MEDICAID ==
[~2020-05-08] VITALS: Ht 177 cm; Wt 111.0 kg
== END 2020-08-06 | disposition home or self-care (01) ==
LOC: PREOP 07:35
PROVIDERS: ATTEND Specialist
DX: Z01.818 Encounter for other preprocedural examination (principal)

== ENCOUNTER 2020-05-09 08:33 | Day surgery (SDC) | payer MEDICARE, MEDICAID ==
[~2020-05-09] VITALS: Ht 175 cm; Wt 111.0 kg
[2020-05-09] MEDS ORDERED: LACTATED RINGERS 1,000 ML IV ONE (08:34)
[2020-05-09 08:50] VITALS: BP 135/83
--- NOTE | 2020-05-09 08:51 | Progress Note-Pre Operative ---
Pre-Operative Progress Note H&P Reviewed The H&P was reviewed, patient examined and no changes noted. Date Seen by Provider: May 09, 2020 Time Seen by Provider: 08:50 Date H&P Reviewed: May 09, 2020 Time H&P Reviewed: 08:50 Pre-Operative Diagnosis: hx polyps CAT MCGOWAN DO May 09, 2020 08:51
[2020-05-09] MEDS ORDERED: LACTATED RINGERS 1,000 ML IV PRN (09:00)
[2020-05-09] MEDS ORDERED: PROPOFOL INJECTION 50 ML IV ONE (09:00)
--- OUTSIDE RECORDS SUMMARY | 2020-05-09 09:44 | XMS REPORT | Encounter Summary ---
Author Author Department [facility] MARGARET pereira Department of [facility] Address [address] [place] [address] Phone Unavailable Care Team Providers Care Digital Photographic Printer Name Role Phone KESHAWN SHERMAN PCP Unavailable [...] PART A Aug 20, 2011 PART A [id number] [phone] GUILLERMOMARGARET PATIENT MEDICARE (WNR) MEDICARE (M) PART B Aug 20, 2011 PART B [id number] [phone] GUILLERMOMARGARET PATIENT MEDICARE (WNR) MEDICARE (M) PART A Aug 20, 2011 PART A [id number] [phone] GUILLERMOMARGARET PATIENT MEDICARE (WNR) MEDICARE (M) PART B Aug 20, 2011 PART B [id number] [phone] MARGARET LI PATIENT Selected Encounter This section includes the information on record at NH for the Encounter. Date/Time Encounter Type Encounter [...] activities for the patient fr om all NH treatment facilities. This section includes future appointments and fu ture orders which are active, pending or scheduled. Future Appointments This section includes appointments that were scheduled t o occur 6 months from the date of the Encounter, up to a maximum of 20 appointme nts. The data comes from all NH treatment [facility]. Appointment Date/Time Appointment Type Appointment Facili ty Name Jun 25, 2019 11:00 AM AMBULATORY - NONE [facility] Jun 25, 2019 02:00 PM AMBULATORY - MEDICINE [facility] Jun 28, 2019 02:15 PM AMBULATORY - MEDICINE [facility] Jun 30, 2019 02:15 PM AMBULATORY - MEDICINE [facility] Jul 05, 2019 02:15 PM AMBULATORY - MEDICINE [facility] Aug 31, 2019 02:30 PM AMBULATORY - PSYCHIATRY [facility] Aug 31, 2019 02:35 PM AMBULATORY - PSYCHIATRY [facility] Sep 21, 2019 02:30 PM AMBULATORY PSYCHIATRY [facility] Sep 21, 2019 02:35 PM AMBULATORY - PSYCHIATRY [facility] Dec 17, 2019 02:00 PM AMBULATORY - MEDICINE [facility] Surgical Procedures: All associated to the encounter No Data Provided for This Section Lab Results: +/- 30 days of the encounter This section includes the Chemistry and Hematology Lab R esults on record with NH for the patient. Radiology Reports and Pathology Report s are provided separately, in subsequent sections. Lab Results This section contains the Chemistry/Hematology Results ysabel t were resulted 30 days before or 30 days after the date of the Encounter. Date/Time Source Result Type Result - Unit Interpretation Reference Range Comment Jun 25, 2019 12:44 PM [facility] CBC Specimen Type: BLOOD Comment: See [...] Jun 25, 2019 12:44 PM [facility] DIFFERENTIAL Specimen Type: BLOOD Comment: See manual differential. SEGS 80 % H 36-66 LYMPHS 12 % L 19-53 MONOS 5 % 0-9 EOSINO 3 % 0-8 NORMOCYTIC Yes PLT (ESTM) ADEQ NL Jun 25, 2019 12:44 PM [facility] RENAL PROFILE Specimen Type: SERUM No [...] Jun 25, 2019 12:44 PM [facility] SERUM PEP(PRO. ELECTROPHO RSIS) Specimen Type: SERUM Comment: SPEP appears normal. No M spike seen. Reviewed by Alec Elias MD, [facility] ALPHA 1 GLOBULINS (G/DL) 0.2 g/dL 0.1-0 .4 ALPHA 2 GLOBULINS (G/DL) 0.8 g/dL 0.4-1 .0 BETA GLOBULINS (G/DL) 0.8 g/dL 0.5-1.1 GAMMA GLOBULINS (G/DL) 1.1 g/dL 0.5-1.7 P.E. TOTAL PROTEIN 6.8 g/dL 6.1-7.9 P.E. ALBUMIN 3.9 g/dL 3.2-5.1 M-SPIKE 0.0 g/dL NOT DETECTED Jun 25, 2019 12:44 PM [facility] KAPPA/LAMBDA LIGHT CHAINS , FREE, SERUM [...] and tobacco- related health factors from the NH facility where the Encounter took place. Current Smoking Status This section includes the most current smoking, or tobacco -related health factor, from the NH facility where the Encounter took place. Date/Time Current Smoking Status Comment Facility Nov 03, 2018 09:51 AM VA-TOBACCO NEVER USED [place] [facility] Tobacco Use History This section includes a history of the smoking, or tobacco -related health factors, that were collected on or before the date of the Encoun ter. The data comes from the NH facility where the Encounter took place. Date/Time Smoking Status/Tobacco Use Comment [facility] Nov 03, 2018 09:51 AM VA-TOBACCO NEVER USED [place] [facility] Oct 24, 2017 10:25 AM V16 LIFETIME NON-TOBACCO USER [place] Oct 24, 2017 10:25 AM V16 TOBACCO USE SCREEN [place] Dec 25, 2016 01:31 PM V16 LIFETIME NON-TOBACCO USER [place] Dec 25, 2016 01:31 PM V16 TOBACCO USE SCREEN [place] Jan 03, 2016 08:51 AM V16 LIFETIME NON-TOBACCO USER [place] Jan 03, 2016 08:51 AM V16 TOBACCO USE SCREEN [place] Dec 27, 2014 04:28 PM V16 LIFETIME NON-TOBACCO USER [place] Dec 27, 2014 04:28 PM V16 TOBACCO USE SCREEN [place] Dec 29, 2013 03:57 PM V16 LIFETIME NON-TOBACCO USER [place] Dec 29, 2013 03:57 PM V16 TOBACCO USE SCREEN [place] Jun 24, 2012 12:25 PM V16 LIFETIME NON-TOBACCO USER [place] Jun 24, 2012 12:25 PM V16 TOBACCO USE SCREEN [place] Dec 18, 2010 01:24 PM V16 LIFETIME NON-TOBACCO USER [place] Dec 18, 2010 01:24 PM V16 TOBACCO USE SCREEN [place] Nov 30, 2009 01:24 PM V16 LIFETIME [...] patient. The data comes from a ll NH treatment facilities. It does not list Allergies/ADRs that were removed or entered in error. Some allergies/ADRs may be reported in t he Immunization section. Allergen Event Date Event Type Reaction(s) Severity Source [place] Feb 07, 2000 Propensity to adverse reactions to drug (diso rder) [place] Medications: VA dispensed (-15 months) and Non-VA Documented (Obtained Outside A) Section Date Range: 1) prescriptions processed by a VA pharmacy in the last 15 m [facility], and 2) all medications recorded in the NH medical record as "non-VA medic ations". Pharmacy terms refer to VA pharmacy's work on prescriptions. VA patient s are advised to take their medications as instructed by their health care team. The data comes from all NH treatment facilities. Glossary of Pharmacy Terms:Active = A prescription that can be filled at the local NH pharmacy.Active: On Hold = An active prescription that will not be filled until pharmacy resolves the issue.Active: Susp = An active prescription that is not scheduled to be filled yet.Clinic Order = A medication received during a visit to a NH clinic or emergency department (currently not available).Discontinued = A prescription stopped by a NH provider. It is no longer available to be filled. = A prescription which is too old to fill. This does not refer to the expiration date of the medication in the container. Non-VA = A medication that came from someplace other than a NH pharmacy. This may be a prescription from either the NH or other providers that was filled outside the NH. Or, it may be an over the [...] FOR BLOOD PRESSURE 90 Sep 24, 2020 [id number] Apr 07, 2020 V KESHAWN VAUGHN [facility] ATENOLOL 50MG/CHLORTHALIDONE 25MG TAB Discontinued TA KE 1 TABLET BY MOUTH EVERY MORNING FOR BLOOD PRESSURE 90 Oct 17, 2019 [id number] Jul 26, 2019 V KESHAWN VAUGHN [facility] ATORVASTATIN CA 80MG TAB Active TAKE ONE-HALF T ABLET BY MOUTH AT BEDTIME FOR CHOLESTEROL - DO NOT TAKE WITH GRAPEFRUIT JUICE 45 Apr 11, 2021 [id number] Apr 10, 2020 KESHAWN SHERMAN [facility] ATORVASTATIN CA 80MG TAB Discontinued TAKE ONE-HALF T ABLET BY MOUTH AT BEDTIME FOR CHOLESTEROL - DO NOT TAKE WITH GRAPEFRUIT JUICE 45 Dec 23, 2019 [id number] Oct 14, 2019 KESHAWN SHERMAN [facility] CARBOXYMETHYLCELLULOSE NA 0.5% SOLN,OPH INSTILL ONE DROP IN EACH EYE FOUR TIMES DAILY Feb 10, 2020 [id number] Feb 09, 2019 MAGEN CORONA [facility] CARBOXYMETHYLCELLULOSE NA 1% GEL,OPH INS TILL ONE DROP TO EACH EYE TWICE A DAY Feb 10, 2020 [id number] Feb 09, 2019 MAGEN CORONA [facility] CIPROFLOXACIN HCL 500MG TAB Active TAKE ONE TAB LET BY MOUTH TWICE A DAY - ANTIBIOTIC - TAKE UNTIL GONE *TAKE WITH FOOD AND AVOID TAKING WITH DAIRY OR PRODUCTS CONTAINING ALUMINUM, IRON, CALCIUM, OR MAGNESIUM* 14 J 2019 [id number] Apr 12, 2020 ALEXANDRA REYES [facility] FAMOTIDINE 40MG TAB Active TAKE ONE TABLET BY M OUTH ONCE DAILY FOR STOMACH/REFLUX 30 Apr 12, 2021 [id number] Apr 11, 2020 KESHAWN SHERMAN [facility] FAMOTIDINE 40MG TAB Discontinued TAKE ONE TABLET BY M OUTH ONCE DAILY FOR STOMACH/REFLUX 90 Sep 24, 2020 [id number] Dec 29, 2019 KESHAWN SHERMAN [facility] FLUTICASONE PROPIONATE 50MCG/SPRAY SOLN,NASAL,16GM Active USE 2 SPRAYS IN NOSE TWICE A DAY SHAKE GENTLY BEFORE USE 3 Apr 11, 2021 [id number] J 2019 [facility] FLUTIC[facility] PROPIONATE 50MCG/SPRAY SOLN,NASAL,16GM Discontin ued USE 2 SPRAYS IN NOSE TWICE A DAY SHAKE GENTLY BEFORE USE 3 Dec 23, 2019 [id number] Jul 26, 2019 KESHAWN SHERMAN [facility] IBUPROFEN 600MG TAB Non- VA TAKE ONE TABLET BY MOUTH THREE TIMES DAILY WITH MEALS NEEDED Non-VA Documented by: KESHAWN SHERMAN Docume nted at: UNIQUE IN MAGNESIUM OXIDE 420MG TAB Active TAKE ONE TABLE T BY MOUTH TWICE A DAY TAKE WITH FOOD 100 Apr 11, 2021 [id number] Apr 10, 2020 KESHAWN SHERMAN [facility] MAGNESIUM OXIDE 420MG TAB Discontinued TAKE ONE TABLE T BY MOUTH TWICE A DAY TAKE WITH FOOD 100 Jan 14, 2020 [id number] Dec 29, 2019 KESHAWN SHERMAN [facility] OMEPRAZOLE 20MG CAP,EC Active TAKE 1 CAPSULE BY MOUTH ONCE DAILY FOR THE STOMACH 90 Dec 30, 2020 [id number] Apr 07, 2020 KESHAWN SHERMAN [facility] OMEPRAZOLE 20MG CAP,EC Discontinued TAKE 1 CAPSULE BY MOUTH ONCE DAILY FOR THE STOMACH 90 Dec 23, 2019 [id number] Oct 14, 2019 KESHAWN SHERMAN [facility] POTASSIUM CHLORIDE 20MEQ TAB,SA (DISPERSIBLE) Active TAKE ONE TABLET BY MOUTH ONCE DAILY WITH FOOD 90 Dec 30, 2020 [id number] Apr 19, 2020 HAMLET SHERMAN [facility] POTASSIUM CHLORIDE 20MEQ TAB,SA (DISPERSIBLE) Discontinued TAKE ONE TABLET BY MOUTH ONCE DAILY WITH FOOD 90 Dec 23, 2019 [id number] Nov 11, 2019 KESHAWN JOHNSON [facility] RANITIDINE HCL 150MG TAB Discontinued TAKE TWO TABLET S BY MOUTH AT BEDTIME FOR STOMACH 180 Dec 23, 2019 [id number] Jul 26, 2019 KESHAWN SHERMAN IN VENLAFAXINE HCL 37.5MG 24HR CAP,SA Active TAKE 3 CAPSULES BY MOUTH EVERY MORNING FOR MOOD 270 Apr 08, 2021 [id number] Apr 07, 2020 KENA RAGSDALE [facility] VENLAFAXINE HCL 37.5MG 24HR CAP,SA Discontinued TAKE 3 CAPSULES BY MOUTH EVERY MORNING FOR MOOD 270 Jun 01, 2020 [id number] Dec 29, 2019 KENA RAGSDALE [facility] VENLAFAXINE HCL 75MG 24HR CAP,SA Discontinued TAKE ON E CAPSULE BY MOUTH EVERY MORNING FOR MOOD 90 Apr 13, 2020 [id number] Apr 13, 2019 KESHAWN SHERMAN [facility] Problems (Conditions): All historical and current Section Date Range: From patient's date of to the date document was create d. This section includes a list of Problems (Conditions) know n to [facility] for the patient. It includes both active and inacti ve problems (conditions). The data comes from all NH treatment facilities. Problem Status Problem Code Date of Onset Date of Resolution Comm ent(s) Provider Source Allergic rhinitis * (ICD-9-CM 477.9) Active 477.9 [facility] [place] Chronic kidney disease stage 3 Active 502504261 KESHAWN SHERMAN [place] Corneal epithelial dystrophy Active 572722511 [facility] Depression Active 07500460 KESHAWN SHERMAN Gastroesophageal reflux disease (SNOMED CT 582094293) Active 8410 51806 Nov 30, 2009 Entered By: FRANCO HERNANDEZ Comment: hiatal herniaFeb 2009 Entered By: FRANCO HERNANDEZ Comment: schiatzski ringFeb 2010 Entered By: FRANCO HERNANDEZ Comment: omeprazole and Zantac.Jun 24, 2012 Entered By: FRANCO HERNANDEZ Comment: GERD KESHAWN SHERMAN H/O: surgery Active [id number] Aug 21, 2012 Entered By: FRANCO HERNANDEZ [...] HERNANDEZ History of polyp of colon Active 310474068 February 24, 2009 Entered By: FRANCO HERNANDEZ Comment: next colonoscopy 2008 Entered By: FRANCO HERNANDEZ Comment: tubulovilousNov 2011 Entered By: FRANCO HERNANDEZ Comment: AUG 20, 2012@14:08:51 Colonoscopy :Diverticulosis Aug 21, 2012 Entered By: FRANCO HERNANDEZ Comment: Repeat of Colonoscopy in 5 years 2017 Entered By: KESHAWN SHERMAN Comment: he refuses repeat colonoscopy KESHAWN SHERMAN Hyperlipidemia Active 57915179 KESHAWN SHERMAN Hypertension Active 80083391 KESHAWN SHERMAN Hypotonic bladder Active [id number] Dec 28, 2014 Entered By: KESHAWN SHERMAN Comment: Inability to void, was seen March 2013 with catheter placedDec 28, 2014 Entered By: KESHAWN SHERMAN Comment: Now has permanent suprapubic catheterDec 28, 2014 Entered By: KESHAWN SHERMAN Comment: D/c terazosin KESHAWN SHERMAN Impaired glucose tolerance Active [id number] Dec 31, 2013 Entered By: KESHAWN SHERMAN Comment: A1c 5.9% Dec Entered By: KESHAWN SHERMAN Comment: 5.9% December Entered By: KESHAWN SHERMAN Comment: A1c 5.9% December Entered By: KESHAWN SHERMAN Comment: a1c 6.3% December 2018 KESHAWN SHERMAN Lumbago Active [id number] KESHAWN SHERMAN Monoclonal gammopathy of uncertain significance Active 846599334 KESHAWN SHERMAN Obesity Active 278.00 Nov 27, [...]
--- OUTSIDE RECORDS SUMMARY | 2020-05-09 09:44 | XMS REPORT | Encounter Summary ---
Author Author Department [facility] MARGARET pereira [facility] Address [address] [place] [address] Phone Unavailable Care Team Providers Care Radio Engineering Teacher Name Role Phone KESHAWN SHERMAN PCP Unavailable [...] PART A Aug 20, 2011 PART A [id number] [phone] GUILLERMOMARGARET PATIENT MEDICARE (WNR) MEDICARE (M) PART B Aug 20, 2011 PART B [id number] [phone] MARGARET LI PATIENT MEDICARE (WNR) MEDICARE (M) PART A Aug 20, 2011 PART A [id number] [phone] MARGARET LI PATIENT MEDICARE (WNR) MEDICARE (M) PART B Aug 20, 2011 PART B [id number] [phone] MARGARET LI PATIENT Selected Encounter This section includes the information on record at [place] for the Encounter. Date/Time Encounter Type Encounter Description Reason Provider Source March 06, 2020 10:47 AM Outpatient Encounter ADMIN PAT ACTIVTIES (MASNO NCT) UNIQUE [facility] IHE Encounter Template Text not used by [place] Assessments - Encounter Diagnoses No Data Provided for This Section Plan of Treatment: Future Appointments (+ 6 months) and Future Tests (+/- 45 day s) The Plan of Treatment section includes future care activities for the patient fr om all [place] treatment facilities. This section includes future appointments and fu ture orders which are active, pending or scheduled. Future Appointments This section includes appointments that were scheduled t o occur 6 months from the date of the Encounter, up to a maximum of 20 appointme nts. The data comes from all [facility]. Appointment Date/Time Appointment Type Appointment Facili ty Name Mar 31, 2020 01:00 PM AMBULATORY - NONE [facility] Apr 05, 2020 07:30 AM AMBULATORY - NONE [facility] Apr 05, 2020 08:30 AM AMBULATORY - NONE [facility] Apr 12, 2020 09:30 AM AMBULATORY - MEDICINE [facility] May 05, 2020 03:09 PM [facility] May 16, 2020 11:00 AM AMBULATORY NONE [facility] May 24, 2020 02:00 PM AMBULATORY - [facility] Surgical Procedures: All associated to the encounter No Data Provided for This Section Lab Results: +/- 30 days of the encounter This section includes the Chemistry and Hematology Lab R esults on record with [place] for the patient. Radiology Reports and Pathology [...] and tobacco- related health factors from the [place] facility where the Encounter took place. Current Smoking Status This section includes the most current smoking, or tobacco -related health factor, from the [place] facility where the Encounter took place. Date/Time Current Smoking Status Comment Facility Nov 03, 2018 09:51 AM [place]-TOBACCO NEVER USED UNIQUE [facility] Tobacco Use History This section includes a history of the smoking, or tobacco -related health factors, that were collected on or before the date of the Encoun ter. The data comes from the [place] facility where the Encounter took place. Date/Time Smoking Status/Tobacco Use Comment [facility] taylory Nov 03, 2018 09:51 AM [place]-TOBACCO NEVER USED UNIQUE [place] Oct 24, 2017 10:25 AM V16 LIFETIME NON-TOBACCO USER [place] Oct 24, 2017 10:25 AM V16 TOBACCO USE SCREEN [facility] [place] Dec 25, 2016 01:31 PM V16 LIFETIME NON-TOBACCO USER [place] Dec 25, 2016 01:31 PM V16 TOBACCO USE SCREEN [facility] [place] Jan 03, 2016 08:51 AM V16 LIFETIME NON-TOBACCO USER [place] Jan 03, 2016 08:51 AM V16 TOBACCO USE SCREEN [facility] [place] Dec 27, 2014 04:28 PM V16 LIFETIME NON-TOBACCO USER [place] Dec 27, 2014 04:28 PM V16 TOBACCO USE SCREEN [facility] [place] Dec 29, 2013 03:57 PM V16 LIFETIME NON-TOBACCO USER [place] Dec 29, 2013 03:57 PM V16 TOBACCO USE SCREEN [place] Jun 24, 2012 12:25 PM V16 LIFETIME NON-TOBACCO USER [place] Jun 24, 2012 12:25 PM V16 TOBACCO USE SCREEN [facility] [place] Dec 18, 2010 01:24 PM V16 LIFETIME NON-TOBACCO USER [place] Dec 18, 2010 01:24 PM V16 TOBACCO USE SCREEN [place] Nov 30, 2009 01:24 PM V16 LIFETIME NON-TOBACCO USER [place] [place] Nov 30, 2009 01:24 PM V16 TOBACCO USE SCREEN [place] Nov 25, 2008 01:22 PM V16 LIFETIME NON-TOBACCO USER [place] [place] Nov 25, 2008 01:22 PM V16 TOBACCO USE SCREEN [place] [place] Jan 08, 2008 12:49 PM V16 LIFETIME NON-TOBACCO USER [place] [place] Jan 08, 2008 12:49 PM V16 TOBACCO USE SCREEN [place] Apr 28, 2007 01:53 PM V16 TOBACCO CESSATION >7 YEARS [place] Apr 28, 2007 01:53 PM V16 TOBACCO USE SCREEN [place] Sep 29, 2006 01:44 PM V16 TOBACCO CESSATION > 12 MONTHS [facility] [place] Sep 29, 2006 01:44 PM V16 TOBACCO USE SCREEN FACARRIE MODESTO May 21, 2001 11:04 AM LIFETIME [...] patient. The data comes from a ll [place] treatment facilities. It does not list Allergies/ADRs [...] [facility] pharmacy in the last 15 m [facility], and 2) all medications recorded in the [place] medical record as "non-VA medic ations". Pharmacy terms refer to VA pharmacy's work on prescriptions. VA patient s are advised to take their medications as instructed by their health care team. The data comes from all [place] treatment facilities. Glossary of Pharmacy Terms:Active = A prescription that can be filled at the local [place] pharmacy.Active: On Hold = An active prescription that will not be filled until pharmacy resolves the issue.Active: Susp = An active prescription that is not scheduled to be filled yet.Clinic Order = A medication received during a visit to a [place] clinic or emergency department (currently not available).Discontinued [...] FOR BLOOD PRESSURE 90 Sep 24, 2020 [id number] Apr 07, 2020 KESHAWN JOHNSON [facility] ATENOLOL 50MG/CHLORTHALIDONE 25MG TAB Discontinued TA KE 1 TABLET BY MOUTH EVERY MORNING FOR BLOOD PRESSURE 90 Oct 17, 2019 [id number] Jul 26, 2019 V KESHAWN VAUGHN [facility] ATORVASTATIN CA 80MG TAB Active TAKE ONE-HALF T ABLET BY MOUTH AT BEDTIME FOR CHOLESTEROL - DO NOT TAKE WITH GRAPEFRUIT JUICE 45 Apr 11, 2021 [id number] Apr 10, 2020 KESHAWN SHERMAN [facility] ATORVASTATIN CA 80MG TAB Discontinued TAKE ONE-HALF T ABLET BY MOUTH AT BEDTIME FOR CHOLESTEROL - DO NOT TAKE WITH GRAPEFRUIT JUICE 45 Dec 23, 2019 [id number] Oct 14, 2019 KESHAWN SHERMAN [facility] CARBOXYMETHYLCELLULOSE NA 0.5% SOLN,OPH INSTILL ONE DROP IN EACH EYE FOUR TIMES DAILY 15 Feb 10, 2020 [id number] Feb 09, 2019 MAGEN CORONA [facility] CARBOXYMETHYLCELLULOSE NA 1% GEL,OPH INS TILL ONE DROP TO EACH EYE TWICE A DAY 15 Feb 10, 2020 [id number] Feb 09, 2019 MAGEN CORONA [facility] CIPROFLOXACIN HCL 500MG TAB Active TAKE ONE TAB LET BY MOUTH TWICE A DAY - ANTIBIOTIC - TAKE UNTIL GONE *TAKE WITH FOOD AND AVOID TAKING WITH DAIRY OR PRODUCTS CONTAINING ALUMINUM, IRON, CALCIUM, OR MAGNESIUM* 14 J 2019 [id number] Apr 12, 2020 ALEXANDRA REYES [facility] FAMOTIDINE 40MG TAB Active TAKE ONE TABLET BY M OUTH ONCE DAILY FOR STOMACH/REFLUX 30 Apr 12, 2021 [id number] Apr 11, 2020 KESHAWN SHERMAN [facility] FAMOTIDINE 40MG TAB Discontinued TAKE ONE TABLET BY M OUTH ONCE DAILY FOR STOMACH/REFLUX 90 Sep 24, 2020 [id number] Dec 29, 2019 KESHAWN SHERMAN [facility] FLUTICASONE PROPIONATE 50MCG/SPRAY SOLN,NASAL,16GM Active USE 2 SPRAYS IN NOSE TWICE A DAY SHAKE GENTLY BEFORE USE Apr 11, 2021 [id number] J 2019 KESHAWN SHERMAN [facility] [...] by: KESHAWN SHERMAN Docume nted at: [place] MAGNESIUM OXIDE 420MG TAB Active TAKE ONE TABLE T BY MOUTH TWICE A DAY TAKE WITH FOOD 100 Apr 11, 2021 [id number] Apr 10, 2020 [facility]NESIUM OXIDE 420MG TAB Discontinued TAKE ONE TABLE T BY MOUTH TWICE A DAY TAKE WITH FOOD 100 Jan 14, 2020 [id number] Dec 29, 2019 KESHAWN SHERMAN [facility] OMEPRAZOLE 20MG CAP,EC Active TAKE 1 CAPSULE BY MOUTH ONCE DAILY FOR THE STOMACH 90 Dec 30, 2020 [id number] Apr 07, 2020 KESHAWN SHERMAN [facility] OMEPRAZOLE 20MG CAP,EC Discontinued TAKE 1 CAPSULE BY MOUTH ONCE DAILY FOR THE STOMACH 90 Dec 23, 2019 [id number] Oct 14, 2019 KESHAWN SHERMAN [facility] POTASSIUM CHLORIDE 20MEQ TAB,SA (DISPERSIBLE) Active TAKE ONE TABLET BY MOUTH ONCE DAILY WITH FOOD 90 Dec 30, 2020 [id number] Apr 19, 2020 HAMLET SHERMAN [facility] POTASSIUM CHLORIDE 20MEQ TAB,SA (DISPERSIBLE) Discontinued TAKE ONE TABLET BY MOUTH ONCE DAILY WITH FOOD 90 Dec 23, 2019 [id number] Nov 11, 2019 KESHAWN JOHNSON [facility] RANITIDINE HCL 150MG TAB Discontinued TAKE TWO TABLET S BY MOUTH AT BEDTIME FOR STOMACH 180 Dec 23, 2019 [id number] Jul 26, 2019 KESHAWN SHERMAN [place] VENLAFAXINE HCL 37.5MG 24HR CAP,SA Active TAKE 3 CAPSULES BY MOUTH EVERY MORNING FOR MOOD 270 Apr 08, 2021 [id number] Apr 07, 2020 KENA [place] [facility] VENLAFAXINE HCL 37.5MG 24HR CAP,SA Discontinued TAKE 3 CAPSULES BY MOUTH EVERY MORNING FOR MOOD 270 Jun 01, 2020 [id number] Dec 29, 2019 KENA [facility] VENLAFAXINE HCL 75MG 24HR CAP,SA Discontinued TAKE ON E CAPSULE BY MOUTH EVERY MORNING FOR MOOD 90 Apr 13, 2020 [id number] Apr 13, 2019 KESHAWN SHERMAN [facility] Problems (Conditions): All historical and current Section Date Range: From patient's date of to the date document was create d. This section includes a list of Problems (Conditions) know n to [place] for the [place]. It includes both active and inacti ve problems (conditions). The data comes from all [place] treatment facilities. Problem Status Problem Code Date of Onset Date of Resolution Comm ent(s) Provider Source Allergic rhinitis * (ICD-9-CM 477.9) Active 477.9 [facility] [place] Chronic kidney disease stage 3 Active 122129678 KESHAWN SHERMAN [place] Corneal epithelial dystrophy Active 431232524 [facility] [place] [facility] Depression Active 86457700 KESHAWN SHERMAN [place] Gastroesophageal reflux disease (SNOMED CT 357825243) Active 2354 52736 Nov 30, 2009 Entered By: FRANCO HERNANDEZ Comment: hiatal herniaFeb 2009 Entered By: FRANCO HERNANDEZ Comment: schiatzski ringFeb 2010 Entered By: FRANCO HERNANDEZ Comment: omeprazole and Zantac.Jun 24, 2012 Entered By: FRANOC HERNANDEZ Comment: KESHAWN ALFONSO H/O: surgery Active 392766938 Aug 21, 2012 Entered By: FRANCO HERNANDEZ [...] HERNANDEZ History of polyp of colon Active 312755843 February 24, 2009 Entered By: FRANCO HERNANDEZ Comment: next colonoscopy 2008 Entered By: FRANCO HERNANDEZ Comment: tubulovilousNov 2011 Entered By: FRANCO HERNANDEZ Comment: AUG 20, 2012@14:08:51 Colonoscopy :Diverticulosis Aug 21, 2012 Entered By: FRANCO HERNANDEZ Comment: Repeat of Colonoscopy in 5 years 2017 Entered By: KESHAWN SHERMAN Comment: he refuses repeat colonoscopy KESHAWN SHERMAN Hyperlipidemia Active 77266026 KESHAWN SHERMAN Hypertension Active 41260013 KESHAWN SHERMAN Hypotonic bladder Active 414900287 Dec 28, 2014 Entered By: KESHAWN SHERMAN Comment: Inability to void, was seen March 2013 with catheter placedDec 28, 2014 Entered By: KESHAWN SHERMAN Comment: Now has permanent suprapubic catheterDec 28, 2014 Entered By: KESHAWN SHERMAN Comment: D/c terazosin KESHAWN SHERMAN Impaired glucose tolerance Active 3821211 Dec 31, 2013 Entered By: KESHAWN SHERMAN Comment: A1c 5.9% Dec Entered By: KESHAWN SHERMAN Comment: 5.9% December Entered By: KESHAWN SHERMAN Comment: A1c 5.9% December Entered By: KESHAWN SHERMAN Comment: a1c 6.3% December 2018 KESHAWN SHERMAN Lumbago Active 808583267 KESHAWN SHERMAN [place] Monoclonal gammopathy of uncertain significance Active 794915782 KESHAWN SHERMAN Obesity Active 278.00 Nov 27, [...] the Encounter. Date/Time Encounter Note(s) Provider Source March 06, 2020 10:47 AM ADMINISTRATIVE NOTE: LOCAL TITLE: ADMINISTRATIVE NOTE STANDARD TITLE: ADMINISTRATIVE NOTE DATE OF NOTE: MARCH 06, 2020@10:47 ENTRY DATE: MARCH 06, 2020@10:47:20 AUTHOR: RICARDO BOYLE EXP COSIGNER: URGENCY: STATUS: COMPLETED has transferred to [facility] appt scheduled for 04/05/2020. had an appt with [facility] on 03/21/20, that appt has been canceled. /marilyn/ RICARDO BOYLE [facility] Signed: 03/06/2020 10:48 Receipt Acknowledged By: * AWAITING SIGNATURE * LETITIA GUTIERREZ [place] [facility]
--- OUTSIDE RECORDS SUMMARY | 2020-05-09 09:44 | XMS REPORT | Encounter Summary ---
Author Author Department of [facility] MARGARET pereira Organization Department of [facility] Address [address] [place] [address] Phone Unavailable Care Team Providers Care Equipment Maintenance Tech Name Role Phone KESHAWN SHERMAN PCP Unavailable [...] PART A Aug 20, 2011 PART A [id number] [phone] MARGARET LI PATIENT MEDICARE (WNR) MEDICARE (M) PART B Aug 20, 2011 PART B [id number] [phone] GUILLERMOMARGARET PATIENT MEDICARE (WNR) MEDICARE (M) PART A Aug 20, 2011 PART A [id number] [phone] GUILLERMOMARGARET PATIENT MEDICARE (WNR) MEDICARE (M) PART B Aug 20, 2011 PART B [id number] [phone] MARGARET LI PATIENT Selected Encounter This section includes the information on record at [place] for the Encounter. Date/Time Encounter Type Encounter Description Reason Provider Source Mar 29, 2020 10:05 AM Outpatient Encounter TELEPHONE PRIMARY CAR E ICD-10-CM Z71.89 Other specified counseling with Provider Comments: Counseling,Oth Specified JAY GUERRERO [facility] IHE Encounter Template Text not used by CO Assessments - Encounter Diagnoses This section includes the primary and secondary diag noses documented for the Encounter. Date/Time Primary/Secondary Diagnosis Diagnosis Name Provider Source Mar 29, 2020 10:05 AM PRIMARY Other specified counseling JAY ROSE [facility] Mar 29, 2020 10:05 AM SECONDARY Persons encounteri health services in oth circumstances [facility] Plan of Treatment: Future Appointments (+ 6 months) and Future Tests (+/- 45 day s) The Plan of Treatment section includes future care activities for the patient fr om all [place] treatment facilities. This section includes future appointments and fu ture orders which are active, pending or scheduled. Future Appointments This section includes appointments that were scheduled t o occur 6 months from the date of the Encounter, up to a maximum of 20 appointme nts. The data comes from all [place] treatment facilities. Appointment Date/Time Appointment Type Appointment Facili ty Name Mar 31, 2020 01:00 PM AMBULATORY - NONE [facility] Apr 05, 2020 07:30 AM AMBULATORY - NONE [facility] Apr 05, 2020 08:30 AM AMBULATORY - NONE [facility] Apr 12, 2020 09:30 AM AMBULATORY - MEDICINE [facility] May 05, 2020 03:09 PM AMBULATORY - PSYCHIATRY [facility] May 16, 2020 11:00 AM AMBULATORY - NONE [facility] May 24, 2020 02:00 PM AMBULATORY - PSYCHIATRY [facility] Surgical Procedures: All associated to the encounter No Data Provided for This Section Lab Results: +/- 30 days of the encounter This section includes the Chemistry and Hematology Lab R esults on record with CO for the patient. Radiology Reports and Pathology Report s are provided separately, in subsequent sections. Lab Results This section contains the Chemistry/Hematology Results ysabel t were resulted 30 days before or 30 days after the date of the Encounter. Date/Time Source Result Type Result - Unit Interpretation Reference Range Comment Apr 05, 2020 07:35 AM [facility] MAGNESIUM Specimen Type: SERUM No comment entered. MAGNESIUM (FV) 1.9 mg/dL 1.8-2.4 Apr 05, 2020 07:35 AM [facility] TSH (FV) Specimen Type: SERUM No comment entered. TSH (FV) 1.41 mcIU/mL 0.45-5.33 Apr 05, 2020 07:35 AM [facility] RENAL+LIVER PROFILE Specimen Type: SERUM [...] H .61-1.24 Apr 05, 2020 07:35 AM [facility] CBC Specimen Type: BLOOD No [...] K/cmm 0.0-0.2 Apr 05, 2020 07:35 AM [facility] B12 Specimen Type: SERUM No comment entered. VITAMIN B12 () 243 pg/mL 180-914 Apr 05, 2020 07:35 AM [facility] GLYCO HGB A1C Specimen Type: BLOOD No comment entered. Glyco Hgb A1C 6.3 % H 4.2-5.8 Apr 05, 2020 07:35 AM [facility] LIPID PROFILE Specimen Type: SERUM No comment entered. CHOLESTEROL, TOTAL (FV) 186 mg/dL 118-20 0 TRIGLYCERIDE (FV) 114 mg/dL <150 LDL CHOLESTEROL (CALCULATED) 118 HDL CHOLESTEROL () 45 mg/dL >40 Apr 05, 2020 07:35 AM [facility] URINALYSIS Specimen Type: URINE No [...] H NEG-74 Apr 05, 2020 07:35 AM [facility] MICROSCOPIC URINALYSIS Specimen Type: URINE [...] Source Mar 29, 2020 10:16 AM 0 [facility] Mar 29, 2020 10:14 AM 70 in [facility] Immunizations: All administered on the encounter date No Data Provided for This Section Social History: Smoking Status (Most current) and Tobacco Use (All prior to enco unter date) This section includes the most current, and the historical, smoking and tobacco- related health factors from the CO facility where the Encounter took place. Current Smoking Status This section includes the most current smoking, or tobacco -related health factor, from the CO facility where the Encounter took place. Date/Time Current Smoking Status Comment Facility Mar 29, 2020 10:05 AM [facility] Tobacco Use History This section includes a history of the smoking, or tobacco -related health factors, that were collected on or before the date of the Encoun ter. The data comes from the CO facility where the Encounter took place. Date/Time Smoking Status/Tobacco Use Comment Facil it Mar 29, 2020 10:05 AM CO-TOBACCO [place] USED [place] [facility] Nov 03, 2018 09:51 AM V16 [place]AC[place]CREEN [place] Nov 03, 2018 09:51 AM CO-TOBACCO NEVER USED [place] [facility] Oct 24, 2017 10:25 AM V16 LIFETIME NON-TOBACCO USER [place] [facility] Oct 24, 2017 10:25 AM V16 TOBACCO USE SCREEN [place] [facility] Dec 25, 2016 01:31 PM V16 LIFETIME NON-TOBACCO USER [place] [facility] Dec 25, 2016 01:31 PM V16 TOBACCO USE SCREEN [place] [facility] Jan 03, 2016 08:51 AM V16 LIFETIME NON-TOBACCO USER [place] [facility] Jan 03, 2016 08:51 AM V16 TOBACCO USE SCREEN [place] [facility] Dec 27, 2014 04:28 PM V16 LIFETIME NON-TOBACCO USER [place] Dec 27, 2014 04:28 PM V16 TOBACCO USE SCREEN [place] [facility] Dec 29, 2013 03:57 PM V16 LIFETIME NON-TOBACCO USER [place] [facility] Dec 29, 2013 03:57 PM V16 TOBACCO USE SCREEN [place] [facility] Jun 24, 2012 12:25 PM V16 LIFETIME NON-TOBACCO USER [place] [facility] Jun 24, 2012 12:25 PM V16 TOBACCO USE SCREEN [place] [facility] Dec 18, 2010 01:24 PM V16 LIFETIME NON-TOBACCO USER [place] Dec 18, 2010 01:24 PM V16 TOBACCO USE [place]CREEN [place] Nov 30, 2009 01:24 PM V16 LIFETIME NON-TOBACCO USER [place] Nov 30, 2009 01:24 PM V16 TOBACCO USE SCREEN [facility] Nov 25, 2008 01:22 PM V16 LIFETIME NON-TOBACCO USER HSAE [place]ERS [place] Nov 25, 2008 01:22 PM [...] 20, 2000 01:09 PM LIFETIME NON-TOBACCO USER [place] Advance Directives: All historical and current No Data Provided for This Section Allergies and Adverse Reactions (ADRs): All historical and current Section Date Range: From patient's date of to the date document was create d. This section includes Allergies and Adverse Reactions (ADR s) on record with [facility] for the patient. The data comes from a ll [place] treatment facilities. It does not list Allergies/ADRs [...] VA pharmacy in the last 15 m [facility], and 2) all medications recorded in the CO medical record as "non-VA medic ations". Pharmacy terms refer to VA pharmacy's work on prescriptions. VA patient s are advised to take their medications as instructed by their health care team. The data comes from all [place] treatment facilities. Glossary of Pharmacy Terms:Active = A prescription that can be filled at the local [place] pharmacy.Active: On Hold = An active prescription that will not be filled until pharmacy resolves the issue.Active: Susp = An active prescription that is not scheduled to be filled yet.Clinic Order = A medication received during a visit to a CO clinic or emergency department (currently not available).Discontinued = A prescription stopped by a CO provider. It is no longer available to be filled. = A prescription which is too old to fill. This does not refer to the expiration date of the medication in the container. Non-VA = A medication that came from someplace other than a [place] pharmacy. This may be a prescription from either the CO or other providers that was filled outside the CO. Or, it may be an over the [...] FOR BLOOD PRESSURE 90 Sep 24, 2020 [id number] Apr 07, 2020 V KESHAWN VAUGHN [facility] ATENOLOL 50MG/CHLORTHALIDONE 25MG TAB Discontinued TA KE 1 TABLET BY MOUTH EVERY MORNING FOR BLOOD PRESSURE 90 Oct 17, 2019 [id number] Jul 26, 2019 V KESHAWN VAUGHN [facility] ATORVASTATIN CA 80MG TAB Active TAKE ONE-HALF T ABLET BY MOUTH AT BEDTIME FOR CHOLESTEROL - DO NOT TAKE WITH GRAPEFRUIT JUICE 45 Apr 11, 2021 [id number] Apr 10, 2020 KESHAWN SHERMAN [facility] ATORVASTATIN CA 80MG TAB Discontinued TAKE ONE-HALF T ABLET BY MOUTH AT BEDTIME FOR CHOLESTEROL - DO NOT TAKE WITH GRAPEFRUIT JUICE 45 Dec 23, 2019 [id number] Oct 14, 2019 KESHAWN SHERMAN [facility] CARBOXYMETHYLCELLULOSE NA 0.5% SOLN,OPH INSTILL ONE DROP IN EACH EYE FOUR TIMES DAILY 15 Feb 10, 2020 [id number] Feb 09, 2019 MAGEN CORONA [facility] CARBOXYMETHYLCELLULOSE NA 1% GEL,OPH INS TILL ONE DROP TO EACH EYE TWICE A DAY 15 Feb 10, 2020 [id number] Feb 09, 2019 MAGEN CORONA [facility] CIPROFLOXACIN HCL 500MG TAB Active TAKE ONE TAB LET BY MOUTH TWICE A DAY - ANTIBIOTIC - TAKE UNTIL GONE *TAKE WITH FOOD AND AVOID TAKING WITH DAIRY OR PRODUCTS CONTAINING ALUMINUM, IRON, CALCIUM, OR MAGNESIUM* 14 J 2019 [id number] Apr 12, [address] [facility] FAMOTIDINE 40MG TAB Active TAKE ONE TABLET BY M OUTH ONCE DAILY FOR STOMACH/REFLUX 30 Apr 12, 2021 [id number] Apr 11, 2020 KESHAWN SHERMAN [facility] FAMOTIDINE 40MG TAB Discontinued TAKE ONE TABLET BY M OUTH ONCE DAILY FOR STOMACH/REFLUX 90 Sep 24, 2020 [id number] Dec 29, 2019 KESHAWN SHERMAN [facility] FLUTICASONE PROPIONATE 50MCG/SPRAY SOLN,NASAL,16GM Active USE 2 SPRAYS IN NOSE TWICE A DAY SHAKE GENTLY BEFORE USE 3 Apr 11, 2021 [id number] J 2019 KESHAWN SHERMAN [facility] FLUTICASONE PROPIONATE 50MCG/SPRAY SOLN,NASAL,16GM Discontin ued USE 2 SPRAYS IN NOSE TWICE A DAY SHAKE GENTLY BEFORE USE 3 Dec 23, 2019 [id number] Jul 26, 2019 KESHAWN SHERMAN [facility] IBUPROFEN 600MG TAB Non- VA TAKE ONE TABLET BY MOUTH THREE TIMES DAILY WITH MEALS NEEDED Non-VA Documented by: KESHAWN SHERMAN Docume nted at: [facility] MAGNESIUM OXIDE 420MG TAB Active TAKE ONE TABLE T BY MOUTH TWICE A DAY TAKE WITH FOOD 100 Apr 11, 2021 [id number] Apr 10, 2020 KESHAWN SHERMAN [facility] MAGNESIUM OXIDE 420MG TAB Discontinued TAKE ONE TABLE T BY MOUTH TWICE A DAY TAKE WITH FOOD 100 Jan 14, 2020 [id number] Dec 29, 2019 KESHAWN SHERMAN [facility] OMEPRAZOLE 20MG CAP,EC Active TAKE 1 CAPSULE BY MOUTH ONCE DAILY FOR THE STOMACH 90 Dec 30, 2020 [id number] Apr 07, 2020 KESHAWN SHERMAN [facility] OMEPRAZOLE 20MG CAP,EC Discontinued TAKE 1 CAPSULE BY MOUTH ONCE DAILY FOR THE STOMACH 90 Dec 23, 2019 [id number] Oct 14, 2019 KESHAWN SHERMAN [facility] POTASSIUM CHLORIDE 20MEQ TAB,SA (DISPERSIBLE) Active TAKE ONE TABLET BY MOUTH ONCE DAILY WITH FOOD 90 Dec 30, 2020 [id number] Apr 19, [address] [facility] POTASSIUM CHLORIDE 20MEQ TAB,SA (DISPERSIBLE) Discontinued TAKE ONE TABLET BY MOUTH ONCE DAILY WITH FOOD 90 Dec 23, 2019 [id number] Nov 11, 2019 [facility] RANITIDINE HCL 150MG TAB Discontinued TAKE TWO TABLET S BY MOUTH AT BEDTIME FOR STOMACH 180 Dec 23, 2019 [id number] Jul 26, 2019 [facility] VENLAFAXINE HCL 37.5MG 24HR CAP,SA Active TAKE 3 CAPSULES BY MOUTH EVERY MORNING FOR MOOD 270 Apr 08, 2021 [id number] Apr 07, 2020 KENA RAGSDALE [facility] VENLAFAXINE HCL 37.5MG 24HR CAP,SA Discontinued TAKE 3 CAPSULES BY MOUTH EVERY MORNING FOR MOOD 270 Jun 01, 2020 [id number] Dec 29, 2019 KENA RAGSDALE [facility] VENLAFAXINE HCL 75MG 24HR CAP,SA Discontinued TAKE ON E CAPSULE BY MOUTH EVERY MORNING FOR MOOD 90 Apr 13, 2020 [id number] Apr 13, 2019 KESHAWN SHERMAN [facility] Problems (Conditions): All historical and current Section Date Range: From patient's date of to the date document was create d. This section includes a list of Problems (Conditions) know n to [facility] for the patient. It includes both active and inacti ve problems (conditions). The data comes from all [place] treatment facilities. 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 [facility] Depression Active 72177092 KESHAWN SHERMAN Gastroesophageal reflux disease (SNOMED CT 304309884) Active 9518 72303 Nov 30, 2009 Entered By: FRANCO HERNANDEZ Comment: hiatal herniaNov 30, 2009 Entered By: FRANCO HERNANDEZ Comment: schiatzski ringFeb 2010 Entered By: FRANCO HERNANDEZ Comment: omeprazole and Zantac.Jun 24, 2012 Entered By: FRANCO HERNANDEZ Comment: GERD KESHAWN SHERMAN H/O: surgery Active [id number] Aug 21, 2012 Entered By: FRANCO HERNANDEZ [...] HERNANDEZ History of polyp of colon Active 648955024 February 24, 2009 Entered By: FRANCO HERNANDEZ Comment: next colonoscopy 2008 Entered By: FRANCO HERNANDEZ Comment: tubulovilousNov 2011 Entered By: FRANCO HERNANDEZ Comment: AUG 20, 2012@14:08:51 Colonoscopy :Diverticulosis Aug 21, 2012 Entered By: FRANCO HERNANDEZ Comment: Repeat of Colonoscopy in 5 years 2017 Entered By: KESHAWN SHERMAN Comment: he refuses repeat colonoscopy KESHAWN SHERMAN Hyperlipidemia Active 01697219 KESHAWN SHERMAN Hypertension Active 57724291 KESHAWN SHERMAN 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 Dec 28, 2014 Entered By: KESHAWN SHERMAN Comment: Inability to void, was seen March 2013 with catheter placedDec 28, 2014 Entered By: KESHAWN SHERMAN Comment: Now has permanent suprapubic catheterDec 28, 2014 Entered By: KESHAWN SHERMAN Comment: D/c terazosin KESHAWN SHERMAN Impaired glucose tolerance Active 6891311 Dec 31, 2013 Entered By: KESHAWN SHERMAN Comment: A1c 5.9% Dec Entered By: KESHAWN SHERMAN Comment: 5.9% December Entered By: KESHAWN SHERMAN Comment: A1c 5.9% December Entered By: KESHAWN SHERMAN Comment: a1c 6.3% December 2018 KESHAWN SHERMAN Lumbago Active 438009288 KESHAWN SHERMAN Monoclonal gammopathy of uncertain significance Active 633493295 KESHAWN SHERMAN Obesity Active 278.00 Nov 27, [...] CARE SERVICE Signed: 03/29/2020 10:[address] [facility] Mar 29, 2020 10:18 AM NURSING NOTE: [...] further care. Comment: Tm 1 contact info/911 NONDENOMINATIONAL PREFERENCE: No change to previously reported judaism preference: SABIANIST (NON-SPECIFIC). Patient reports no cultural/judaism/spiritual health preferences. /marilyn/ JAY GUERRERO LPN PRIMARY CARE SERVICE Signed: 03/29/2020 10:[address] [facility] Mar 29, 2020 10:17 AM ADMINISTRATIVE NOTE: [...] to receive above information: Brother Rito Diony [phone] Nephgaviota Bolesan Diony I give permission to provide medical information, my home address, and my phone number in the coordination of my home health care: YES Home Health Agency I give permission for message (including medical information) to be left on my answering machine: Yes VLER Release of Info (FACUNDO) (Form 10-3226): Signed 2017/ JAY GUERRERO LPN PRIMARY CARE SERVICE Signed: 03/29/2020 10:18 JAY GUERRERO [facility] Mar 29, 2020 10:05 AM TELEPHONE ENCOUNTER NOTE: LOCAL TITLE: TELECARE STANDARD TITLE: TELEPHONE ENCOUNTER NOTE DATE OF NOTE: MAR 29, 2020@10:05 ENTRY DATE: MAR 29, 2020@10:05:57 AUTHOR: JAY GUERRERO EXP COSIGNER: URGENCY: STATUS: COMPLETED PATIENT NAME: MARGARET LI SSN: [id number] FUTURE APPOINTMENTS: Mar@13:00 COM CARE-OPHTHALMOLOGY Mar@07:30 J[facility] LAB FASTING Mar@08:30 JOP PC TM 1 May@14:00 JOP TARIQ UGALDE MD 1 PATIENT'S HOME PHONE: REASON FOR CALL: [...] (Patient has been instructed to go to [facility] Emergency Room or to seek care elsewhere. FINANCIAL DISCLAIMER was read to caller ( ) Yes (x ) Not Applicable) FINANCIAL DISCLAIMER: "This is not an authorization for VA Payment" and also "Have hospital contact the nearest [place] Facility for transfer upon stabilization". Coronavirus Disease [...] overall physical and mental well-being discussed with [facility]. Be Involved Eat Wisely Be Tobacco Free Manage Stress Be Physically Active Get Screenings and Tests Be Safe Limit Alcohol Strive for Healthy Weight No, is not interested in any topic at this time. Importance of healthy living for better health, especially being physically active and eating wisely, was communicated to the [facility]. informed that these topics can be discussed [...] changes. -Patient does not use a medical attendant that fits over skin (e.g., artificial limb, [...] CARE SERVICE Signed: 03/29/2020 10:17 [facility]
--- OUTSIDE RECORDS SUMMARY | 2020-05-09 09:44 | XMS REPORT | Continuity of Care Document ---
Author Author BELENMARGARET MA Organization [facility] Address Unknown Phone Unavailable Care Team Providers Care Before School Name Role Phone [facility] Unavailable Unavailable Problems Combined list of all problems from all Department of Defense and [facility] facilities. It does not include entries that were removed or entered in error. Problem Status Onset Date Problem Type Date of Resolution Comments Source Allergic rhinitis * (ICD-9-CM 477.9) Active Condition [facility] Chronic kidney disease stage 3 Active Condition [facility] Corneal epithelial dystrophy Active Condition [facility] Depression Active Condition [facility] Gastroesophageal reflux disease (SNOMED CT 869074370) Active Condition Nov 30, 2009 Entered By: [...] Comment: colonoscopy 2008Dec 25, 2017 Entered By: KESHAWN SHERMAN Comment: Placement of suprapubic catheter March 2013 Dec 25, 2017 Entered By: KESHANW SHERMAN Comment: Removal of skin cancer from [...] 20, 2012@14:08:51 Colonoscopy :Diverticulosis [facility] IN HYPERCHOLESTEROLEMIA Inactive Condition 12/25/2017 Jun 24, 2012 [...] FRANCO HERNANDEZ Comment: target BP < 130/80 [facility] Internal hemorrhoids without mention of complication Inactive Condition 12/25/2017 [place] [facility] LUMBAGO/LOW BACK PAIN Inactive Condition 12/25/2017 [facility] [place] Noncompliance, Medication Regimen (ICD-9-CM V15.81) Inactive Condition 12/25/2017 [facility] ICD-10-CM F33.9 Major depressive disorde r, recurrent, unspecified with Provider Comments: Depression (SCT [id number]) active Diagnosis [facility] ICD-10-CM N39.0 Urinary tract infection, site not specified with Provider Comments: Urinary tract infection, site not specified active Diagnosis [facility] ICD-10-CM Z71.89 Other specified safety counselor ing with Provider Comments: Counseling,Oth Specified active Diagnosis [facility] ICD-10-CM Z46.1 Encounter for fitting an d adjustment of hearing aid with Provider Comments: Encounter for Fitting and Adjustment of Hearing Aid active Diagnosis [facility] ICD-10-CM F43.23 Adjustment disorder wit h mixed anxiety and depressed mood with Provider Comments: Adjustment Disorder with mixed Anxiety and depressed mood active Diagnosis [facility] ICD-10-CM H25.12 Age-related nuclear cat aract, left eye with Provider Comments: Cataract,Nuclear Age-Rel,Left Eye active Diagnosis [facility] ICD-10-CM N18.3 Chronic kidney disease, stage 3 (moderate) with Provider Comments: Chronic kidney disease stage 3 (SCT [id number]) active Diagnosis [facility] Medications Combined list of all outpatient medications [...] EVERY MORNING FOR BLOOD PRESSURE ACTIVE 03/2020 [id number] 04/07/2020 KESHAWN SHERMAN 10/14/2019 [facility] ATENOLOL 50MG/CHLORTHALIDONE 25MG TAB TAKE 1 TABLET BY MOUTH EVERY MORNING FOR BLOOD PRESSURE DISCONTINUE 10/17/2019 [id number] 07/26/2019 KESHAWN SHERMAN 10/18/2018 [facility] ATORVASTATIN CA 80MG TAB TAKE ONE-HALF TABLET BY MOUTH AT BEDTIME FOR CHOLESTEROL - DO NOT TAKE WITH GRAPEFRUIT JUICE ACTIVE 04/11/2021 [id number] 04/10/2020 KESHAWN SHERMAN 04/10/2020 [facility] ATORVASTATIN CA 80MG TAB TAKE ONE-HALF TABLET BY MOUTH AT BEDTIME FOR CHOLESTEROL - DO NOT TAKE WITH GRAPEFRUIT JUICE DISCONTINUE 12/23/2019 [id number] 10/14/2019 KESHAWN SHERMAN 01/04/2019 [facility] CARBOXYMETHYLCELLULOSE NA 0.5% SOLN,OPH INSTILL ONE DROP IN EACH EYE FOUR TIMES DAILY 02/10/2020 [id number] 02/09/2019 [facility] 02/09/2019 [facility] CARBOXYMETHYLCELLULOSE NA 1% GEL,OPH INSTILL ONE DROP TO EACH EYE TWICE A DAY 02/10/2020 [id number] 02/09/2019 [facility] 02/09/2019 [facility] CIPROFLOXACIN HCL 500MG TAB TA KE ONE TABLET BY MOUTH TWICE A DAY - ANTIBIOTIC - TAKE UNTIL GONE *TAKE WITH FOOD AND AVOID TAKING WITH DAIRY OR PRODUCTS CONTAINING ALUMINUM, IRON, CALCIUM, OR MAGNESIUM* ACTIVE 05/12/2020 [id number] 04/12/2020 ALEXANDRA REYES 04/12/2020 [facility] FAMOTIDINE 40MG TAB TAKE ONE T ABLET BY MOUTH ONCE DAILY FOR STOMACH/REFLUX ACTIVE 04/12/2021 [id number] 04/11/2020 KESHAWN SHERMAN 04/11/2020 [facility] FAMOTIDINE 40MG TAB TAKE ONE T ABLET BY MOUTH ONCE DAILY FOR STOMACH/REFLUX DISCONTINUE 09/24/2020 [id number] 12/29/2019 KESHAWN SHERMAN 09/26/2019 [facility] FLUTICASONE PROPIONATE 50MCG/SPRAY SOLN,NASAL,16GM USE 2 SPRAYS IN NOSE TWICE A DAY SHAKE GENTLY BEFORE USE ACTIVE 04/11/2021 [id number] 04/10/2020 KESHAWN SHERMAN 04/10/2020 [facility] FLUTICASONE PROPIONATE 50MCG/SPRAY SOLN,NASAL,16GM USE 2 SPRAYS IN NOSE TWICE A DAY SHAKE GENTLY BEFORE USE DISCONTINUE 12/23/2019 [id number] 07/26/2019 KESHAWN SHERMAN 12/23/2018 [facility] IBUPROFEN 600MG TAB TAKE ONE T ABLET BY MOUTH THREE TIMES DAILY WITH MEALS NEEDED ACTIVE LUIS MANUEL SHERMAN 01/03/2016 [facility] MAGNESIUM OXIDE 420MG TAB TAKE ONE TABLET BY MOUTH TWICE A DAY TAKE WITH FOOD ACTIVE 04/11/2021 [id number] 04/10/2020 KESHAWN SHERMAN 04/10/2020 [facility] MAGNESIUM OXIDE 420MG TAB TAKE ONE TABLET BY MOUTH TWICE A DAY TAKE WITH FOOD DISCONTINUE 01/14/2020 [id number] 12/29/2019 KESHAWN SHERMAN 01/15/2019 [facility] OMEPRAZOLE 20MG CAP,EC TAKE 1 CAPSULE BY MOUTH ONCE DAILY FOR THE STOMACH ACTIVE 12/30/2020 [id number] 04/07/2020 KESHAWN SHERMAN 01/02/2020 [facility] OMEPRAZOLE 20MG CAP,EC TAKE 1 CAPSULE BY MOUTH ONCE DAILY FOR THE STOMACH DISCONTINUE 12/23/2019 [id number] 10/14/2019 KESHAWN SHERMAN 01/04/2019 [facility] POTASSIUM CHLORIDE 20MEQ TAB,SA (DISPERSIBLE) TAKE ONE TABLET BY MOUTH ONCE DAILY WITH FOOD ACTIVE 12/18 [id number] 04/19/2020 KESHAWN SHERMAN 01/30/2020 [facility] POTASSIUM CHLORIDE 20MEQ TAB,SA (DISPERSIBLE) TAKE ONE TABLET BY MOUTH ONCE DAILY WITH FOOD DISCONTINUE 12/23/2019 [id number] 11/11/2019 KESHAWN SHERMAN 01/04/2019 [facility] RANITIDINE HCL 150MG TAB TAKE TWO TABLETS BY MOUTH AT BEDTIME FOR STOMACH DISCONTINUED 12/23/2019 [id number] 07/26/2019 KESHAWN SHERMAN 01/04/2019 [facility] VENLAFAXINE HCL 37.5MG 24HR CAP,SA TAKE 3 CAPSULES BY MOUTH EVERY MORNING FOR MOOD ACTIVE 04/08/2021 [id number] 04/07/2020 KENA RAGSDALE 04/07/2020 [facility] VENLAFAXINE HCL 37.5MG 24HR CAP,SA TAKE 3 CAPSULES BY MOUTH EVERY MORNING FOR MOOD DISCONTINUE 06/01/2020 [id number] 12/29/2019 KENA RAGSDALE 06/01/2019 [facility] VENLAFAXINE HCL 75MG 24HR CAP,SA TAKE ONE CAPSULE BY MOUTH EVERY MORNING FOR MOOD DISCONTINUED (EDIT) 04/13/2020 [id number] 04/13/2019 KESHAWN SHERMAN 04/13/2019 [facility] Allergies, Adverse Reactions, Alerts Combined list of all allergies from all Department of Defense and Veterans [facility] facilities. It does not include entries that were removed or entered in error. Substance Category R eaction Severity Reaction type Status Date Reported Comments Source PENICILLIN Propensity to adverse r eactions to drug (disorder) Propensity to adverse reactions to drug (disorder) active 02/07/2000 [facility] Immunizations Combined list of: 1) all immunizations on record at all [facility] ies, and 2) all available immunizations on record at Department of Defense (Do D) facilities. Some immunizations on record at [facility] may not be included. Immunization Series Date Given Administered By Site Reaction Lot Number CVX Code Drug Creative Perfumer Status Comments Source INFLUENZA, UNSPECIFIED FORMULATION 08/12/2018 88 completed [facility] INFLUENZA, UNSPECIFIED FORMULATION 08/27/2017 88 completed [facility] TDAP 2016 115 completed [facility] INFLUENZA, UNSPECIFIED FORMULATION 09/04/2016 88 completed [place] PNEUMOCOCCAL CONJUGATE PCV 13 01/03/2016 133 completed [place] INFLUENZA, UNSPECIFIED FORMULATION 08/02/2015 88 completed [place] INFLUENZA, UNSPECIFIED FORMULATION 08/08/2014 88 completed [place] PNEUMOCOCCAL, UNSPECIFIED FORMULATION 12/30/2013 109 completed [place] INFLUENZA, HIGH DOSE SEASONAL 07/20/2013 135 completed [place] INFLUENZA, UNSPECIFIED FORMULATION 08/17/2010 88 completed [place] NOVEL [id number], ALL FORMULATIONS 11/30/2009 128 completed N [employer] [...] Reference Range Date Interpretation Specimen Comments Source MAGNESIUM MAGNESIUM [MASS/VOLUME] IN SERUM OR PLASMA 1.9 mg/dL 1.8 - 2.4 04/05/2020 Specimen Type: SERUM No comment entered. [facility] TSH (FV) THYROTROPIN [UNITS/VO LUME] IN SERUM OR PLASMA BY DETECTION LIMIT <= 0.05 MIU/L 1.41 mcIU/mL 0.45 - 5.33 04/05/2020 Specimen Type: SERUM No comment entered. [facility] RENAL+LIVER PROFILE GLUCOSE [M ASS/VOLUME] IN SERUM OR PLASMA 129 mg/dL 70 - 110 04/05/2020 H Specimen Type: SERUM No comment entered. [facility] RENAL+LIVER PROFILE ALBUMIN [M ASS/VOLUME] IN SERUM OR PLASMA 3.8 g/dL 3.4 - 5.0 04/05/2020 Specimen Type: SERUM No comment entered. [facility] RENAL+LIVER PROFILE ASPARTATE AMINOTRANSFERASE [ENZYMATIC ACTIVITY/VOLUME] IN SERUM OR PLASMA 17 U/L 15 - 37 04/05/2020 Specimen Type: SERUM No comment entered. [facility] RENAL+LIVER PROFILE BILIRUBIN. TOTAL [MASS/VOLUME] IN SERUM OR PLASMA 0.62 mg/dL 0.3 - 1.2 04/05/2020 Specimen Type: SERUM No comment entered. [facility] RENAL+LIVER PROFILE CHLORIDE [ MOLES/VOLUME] IN SERUM OR PLASMA 98 mmol/L 98 - 107 04/05/2020 Specimen Type: SERUM No comment entered. [facility] RENAL+LIVER PROFILE PROTEIN [M ASS/VOLUME] IN SERUM OR PLASMA 7.6 g/dL 6.1 - 7.9 04/05/2020 Specimen Type: SERUM No comment entered. [facility] RENAL+LIVER PROFILE SODIUM [MO LES/VOLUME] IN SERUM OR PLASMA 135 mmol/L 136 - 145 04/05/2020 L Specimen Type: SERUM No comment entered. [facility] RENAL+LIVER PROFILE POTASSIUM [MOLES/VOLUME] IN SERUM OR PLASMA 3.7 mmol/L 3.5 - 5.1 04/05/2020 Specimen Type: SERUM No comment entered. [facility] RENAL+LIVER PROFILE "CARBON DI OXIDE, TOTAL [MOLES/VOLUME] IN SERUM OR PLASMA" 27 mmol/L 21 - 32 04/05/2020 Specimen Type: SERUM No comment entered. [facility] RENAL+LIVER PROFILE UREA NITRO GEN [MASS/VOLUME] IN SERUM OR PLASMA 23 mg/dL 6 - 20 04/05/2020 H Specimen Type: SERUM No comment entered. [facility] RENAL+LIVER PROFILE CALCIUM [M ASS/VOLUME] IN SERUM OR PLASMA 8.7 mg/dL 8.9 - 10.3 04/05/2020 L Specimen Type: SERUM No comment entered. [facility] RENAL+LIVER PROFILE ALANINE AM INOTRANSFERASE [ENZYMATIC ACTIVITY/VOLUME] IN SERUM OR PLASMA BY NO ADDITION OF P-5'-P 14 U/L 0 - 63 04/05/2020 Specimen Type: SERUM No comment entered. [facility] RENAL+LIVER PROFILE ALKALINE P HOSPHATASE [ENZYMATIC ACTIVITY/VOLUME] IN SERUM OR PLASMA 90 U/L 32 - 126 04/05/2020 Specimen Type: SERUM No comment entered. [facility] RENAL+LIVER PROFILE eGFR 49 04/05/2020 Specimen Type: SERUM No comment entered. [facility] RENAL+LIVER PROFILE CREATININE [MASS/VOLUME] IN SERUM OR PLASMA 1.42 mg/dL .61 - 1.24 04/05/2020 H Specimen Type: SERUM No comment entered. [facility] CBC PLATELET MEAN VOLUME [ENTI TIC VOLUME] IN BLOOD BY AUTOMATED COUNT 7.8 fL 7.4 - 10.4 04/05/2020 Specimen Type: BLOOD No comment entered. [facility] CBC ERYTHROCYTE DISTRIBUTION W IDTH [RATIO] BY AUTOMATED COUNT 13.9 % 11.5 - 14.5 04/05/2020 Specimen Type: BLOOD No comment entered. [facility] CBC HEMATOCRIT [VOLUME FRACTIO N] OF BLOOD BY AUTOMATED COUNT 34.9 % 40 - 52 04/05/2020 L Specimen Type: BLOOD No comment entered. [facility] CBC HEMOGLOBIN [MASS/VOLUME] IN BLOO D 11.7 g/dL 13 - 18 04/05/2020 L Specimen Type: BLOOD No comment entered. [facility] CBC PLATELETS [#/VOLUME] IN BLOOD BY AUTOMATED COUNT 408 K/cmm 150 - 440 04/05/2020 Specimen Type: BLOOD No comment entered. [facility] CBC LEUKOCYTES [#/VOLUME] IN BLOOD B Y AUTOMATED COUNT 14.0 K/cmm 3.8 - 10.6 04/05/2020 H Specimen Type: BLOOD No comment entered. [facility] CBC ERYTHROCYTES [#/VOLUME] IN BLOOD BY AUTOMATED COUNT 4.06 M/cmm 4.4 - 5.9 04/05/2020 L Specimen Type: BLOOD No comment entered. [facility] CBC MCV [ENTITIC VOLUME] BY AUTOMATE D COUNT 86.0 fL 80 - 100 04/05/2020 Specimen T ype: BLOOD No comment entered. [facility] CBC MCH [ENTITIC MASS] BY AUTOMATED COUNT 28.9 pg 26 - 34 04/05/2020 Specimen T ype: BLOOD No comment entered. [facility] CBC MCHC [MASS/VOLUME] BY AUTOMATED COUNT 33.6 g/dL 32 - 36 04/05/2020 Specimen T ype: BLOOD No comment entered. [facility] CBC SEGMENTED NEUTROPHILS/100 LEUKOCYTES IN BLOOD BY AUTOMATED COUNT 79.9 % 04/05/2020 Specimen Type: BLOOD No comment entered. [facility] CBC NEUTROPHILS [#/VOLUME] IN BLOOD BY AUTOMATED COUNT 11.2 K/cmm 2.4 - 7.6 04/05/2020 H Specimen Type: BLOOD No comment entered. [facility] CBC LYMPHOCYTES/100 LEUKOCYTES IN BLOOD BY AUTOMATED COUNT 8.9 % 04/05 Specimen T ype: BLOOD No comment entered. [facility] CBC LYMPHOCYTES [#/VOLUME] IN BLOOD BY AUTOMATED COUNT 1.2 K/cmm 1.0 - 4.8 04/05/2020 Specimen Type: BLOOD No comment entered. [facility] CBC MONOCYTES/100 LEUKOCYTES I N BLOOD BY AUTOMATED COUNT 6.8 % 04/05 Specimen T ype: BLOOD No comment entered. [facility] CBC MONOCYTES [#/VOLUME] IN BLOOD BY AUTOMATED COUNT 0.9 K/cmm 0.1 - 1.0 04/05/2020 Specimen Type: BLOOD No comment entered. [facility] CBC EOSINOPHILS/100 LEUKOCYTES IN BLOOD BY AUTOMATED COUNT 3.3 % 04/05 Specimen T ype: BLOOD No comment entered. [facility] CBC EOSINOPHILS [#/VOLUME] IN BLOOD BY AUTOMATED COUNT 0.5 K/cmm 0.0 - 0.4 04/05/2020 H Specimen Type: BLOOD No comment entered. [facility] CBC BASOPHILS/100 LEUKOCYTES I N BLOOD BY AUTOMATED COUNT 1.1 % 04/05 Specimen T ype: BLOOD No comment entered. [facility] CBC BASOPHILS [#/VOLUME] IN BLOOD BY AUTOMATED COUNT 0.2 K/cmm 0.0 - 0.2 04/05/2020 Specimen Type: BLOOD No comment entered. [facility] B12 COBALAMIN (VITAMIN B12) [M ASS/VOLUME] IN SERUM OR PLASMA 243 pg/mL 180 - 914 04/05/2020 Specimen Type: SERUM No comment entered. [facility] GLYCO HGB A1C HEMOGLOBIN A1C/H EMOGLOBIN.TOTAL IN BLOOD BY HPLC 6.3 % 4.2 - 5.8 04/05/2020 H Specimen Type: BLOOD No comment entered. [facility] LIPID PROFILE CHOLESTEROL [MAS S/VOLUME] IN SERUM OR PLASMA 186 mg/dL 118 - 200 04/05/2020 Specimen Type: SERUM No comment entered. [facility] LIPID PROFILE TRIGLYCERIDE [MA SS/VOLUME] IN SERUM OR PLASMA 114 mg/dL 0 04/05/2020 Specimen Type: SERUM No comment entered. [facility] LIPID PROFILE LDL CHOLESTEROL (CALCU LATED) 118 04/05/2020 Specimen Type: SERUM No comment entered. [facility] LIPID PROFILE CHOLESTEROL IN H DL [MASS/VOLUME] IN SERUM OR PLASMA 45 mg/dL Specimen Type: SERUM No comment entered. [facility] URINALYSIS COLOR OF URINE TIFFANY 04/05/2020 Specimen Type: URINE No comment entered. [facility] URINALYSIS SPECIFIC GRAVITY OF URINE 1.013 04/05/2020 Specimen Type: URINE No comment entered. [facility] URINALYSIS PH OF URINE BY TEST STRIP 8.0 PH 5 - 9 04/05/2020 Specimen Type: URINE No comment entered. [facility] URINALYSIS NITRITE [PRESENCE] IN URI NE BY TEST STRIP 1+QUAL. . - "Neg" 04/05/2020 Specimen Type: URINE No comment entered. [facility] URINALYSIS UROBILINOGEN [MASS/ VOLUME] IN URINE BY TEST STRIP <2.0mg/dL - "Normal: <2 mg 04/05/2020 Specimen Type: URINE No comment entered. [facility] URINALYSIS APPEARANCE OF URINE 2+ 04/05/2020 Specimen Type: URINE No comment entered. [facility] URINALYSIS GLUCOSE [MASS/VOLUME] IN URINE BY TEST STRIP NORMALQUAL - "TRACE" 04/05/2020 Specimen Type: URINE No comment entered. [facility] URINALYSIS PROTEIN [MASS/VOLUME] IN URINE BY TEST STRIP 1+QUAL 04/05/2020 Specimen T ype: URINE No comment entered. [facility] URINALYSIS BILIRUBIN.TOTAL [KY ESENCE] IN URINE BY TEST STRIP -QUAL 03/20 Specimen Type: URINE No comment entered. [facility] URINALYSIS HEMOGLOBIN [PRESENCE] IN URINE BY TEST STRIP 1+QUAL - "TRACE" 04/05/2020 Specimen Type: URINE No comment entered. [facility] URINALYSIS KETONES [MASS/VOLUME] IN URINE BY TEST STRIP -QUAL - "TRACE" 04/05/2020 Specimen Type: URINE No comment entered. [facility] URINALYSIS LEUKOCYTE ESTERASE [PRESENCE] IN URINE BY TEST STRIP 500 Romeo/uL - 74 04/05/2020 H Specimen Type: URINE No comment entered. [facility] MICROSCOPIC URINALYSIS LEUKOCY AMY [#/AREA] IN URINE SEDIMENT BY MICROSCOPY HIGH POWER FIELD 21-50/HPF 0 - 5 04/05/2020 H Specimen Type: URINE Comment: Specimen reflexed to culture due to increased WBCs. [facility] MICROSCOPIC URINALYSIS BACTERI A [PRESENCE] IN URINE SEDIMENT BY LIGHT MICROSCOPY MANY/HPF 0 - "FEW" 04/05/2020 Specimen Type: URINE Comment: Specimen reflexed to culture due to increased WBCs. [facility] MICROSCOPIC URINALYSIS TRIPLE PHOSPHATE CRYSTALS [PRESENCE] IN URINE SEDIMENT BY LIGHT MICROSCOPY MANY/HPF 0 - 3 04/05/2020 Specimen Type: URINE Comment: Specimen reflexed to culture due to increased WBCs. [facility] MICROSCOPIC URINALYSIS ERYTHRO CYTES [#/AREA] IN URINE SEDIMENT BY MICROSCOPY HIGH POWER FIELD 7-10/HPF 0 - 2 04/05/2020 H Specimen Type: URINE Comment: Specimen reflexed to culture due to increased WBCs. [facility] CBC PLATELET MEAN VOLUME [ENTI TIC VOLUME] IN BLOOD BY AUTOMATED COUNT 10.3 fL 7.4 - 10.4 06/25/2019 Specimen Type: BLOOD Comment: See manual differential. [facility] CBC ERYTHROCYTE DISTRIBUTION W IDTH [RATIO] BY AUTOMATED COUNT 12.8 % 11.5 - 14.5 06/25/2019 Specimen Type: BLOOD Comment: See manual differential. [facility] CBC HEMATOCRIT [VOLUME FRACTIO N] OF BLOOD BY AUTOMATED COUNT 33.0 % 40 - 52 06/25/2019 L Specimen Type: BLOOD Comment: See manual differential. [facility] CBC HEMOGLOBIN [MASS/VOLUME] IN BLOO D 11.2 g/dL 13 - 18 06/25/2019 L Specimen Type: BLOOD Comment: See manual differential. [facility] CBC PLATELETS [#/VOLUME] IN BLOOD BY AUTOMATED COUNT 337 K/cmm 150 - 440 06/25/2019 Specimen Type: BLOOD Comment: See manual differential. [facility] CBC LEUKOCYTES [#/VOLUME] IN BLOOD B Y AUTOMATED COUNT 11.2 K/cmm 3.8 - 10.6 06/25/2019 H Specimen Type: BLOOD Comment: See manual differential. [facility] CBC ERYTHROCYTES [#/VOLUME] IN BLOOD BY AUTOMATED COUNT 3.87 M/cmm 4.4 - 5.9 06/25/2019 L Specimen Type: BLOOD Comment: See manual differential. [facility] CBC MCV [ENTITIC VOLUME] BY AUTOMATE D COUNT 85.2 fL 80 - 100 06/25/2019 Specimen T ype: BLOOD Comment: See manual differential. [facility] CBC MCH [ENTITIC MASS] BY AUTOMATED COUNT 28.9 pg 26 - 34 06/25/2019 Specimen T ype: BLOOD Comment: See manual differential. [facility] CBC MCHC [MASS/VOLUME] BY AUTOMATED COUNT 33.9 g/dL 32 - 36 06/25/2019 Specimen T ype: BLOOD Comment: See manual differential. [facility] Vital Signs Combined list of inpatient and outpatient Vital Signs from all [facility]or [facility] medical facilities within the last 15 months. The included entries comply with the patient's data sharing authorizations. Vital Sign Value Date Comments Source PAIN 0 03/29 10:16:00 [facility] PAIN 0 09/21 14:36:00 [facility] PAIN 0 06/01 14:48:00 [facility] Encounters Combined list of encounters at Department of Defense and/or [place] for the last 15 months. Not all [place] inpatient encounters are included. The incl uded entries comply with the patient's data sharing authorizations. Location Location Details Encounter Type Encounter Number Reason For Visit Attending Provider ADM Date DC Date Status Disposition Source Outpatient Encounter [id number] _MAPID:en [id number] 11/12/2018 [facility] Outpatient Encounter [id number] _MAPID:en [id number] 12/21/2018 [facility] Outpatient Encounter [id number] _MAPID:en [id number] 12/22/2018 [facility] OFFICE/OUT PATIENT VISIT EST [id number] ICD-10-CM N18.3 Chronic kidney disease, stage 3 (moderate) with Provider Comments: Chronic kidney disease stage 3 (SCT [id number]) MELISSAJAMES MERCEDESLiliane Davidson 12/22/2018 SARAH ZHANG [facility] Outpatient Encounter [id number] _MAPID:en [id number] 12/25/2018 [facility] OFFICE/OUT PATIENT VISIT EST [id number] ICD-10- CM H25.12 Age-related nuclear cataract, left eye with Provider Comments: Cataract,Nuclear Age-Rel,Left Eye MAGEN CORONA 02/09/2019 [facility] Outpatient Encounter [id number] _MAPID:en [id number] 02/15/2019 [facility] Outpatient Encounter [id number] _MAPID:en [id number] 02/15/2019 [facility] Outpatient Encounter [id number] _MAPID:en [id number] 02/17/2019 [facility] Outpatient Encounter [phone] _MAPID:en [id number] 05/21/2019 [facility] Outpatient Encounter [id number] ICD-10- CM F33.9 Major depressive disorder, recurrent, unspecified with Provider Comments: Depression ([facility] [id number]) MARQUIS RACHEL 06/01/2019 [facility] Outpatient Encounter [id number] ICD-10- CM F43.23 Adjustment disorder with mixed anxiety and depressed mood with Provider Comments: Adjustment Disorder with mixed Anxiety and depressed mood KENA RAGSDALE 06/01/2019 [facility] Outpatient Encounter [id number] _MAPID:en [id number] 06/03/2019 [facility] Outpatient Encounter [id number] _MAPID:en [email or web address] 06/24/2019 [facility] Outpatient Encounter [id number] _MAPID:en [email or web address] 06/24/2019 [facility] Outpatient Encounter [id number] _MAPID:en [id number] 06/30/2019 [facility] Outpatient Encounter [id number] _MAPID:en 07/05/2019 [facility] Outpatient Encounter [id number] _MAPID:en [email or web address] 07/07/2019 [facility] Outpatient Encounter [id number] _MAPID: [id number] 08/31/2019 [facility] Outpatient Encounter [id number] _MAPID:en 09/08/2019 [facility] Outpatient Encounter [id number] ICD-10- CM F33.9 Major depressive disorder, recurrent, unspecified with Provider Comments: Depression ([facility] [id number]) MARQUIS RACHEL 09/21/2019 [facility] OFFICE/OUT PATIENT VISIT EST [id number] ICD-10- CM F43.23 Adjustment disorder with mixed anxiety and depressed mood with Provider Comments: Adjustment Disorder with mixed Anxiety and depressed mood KENA RAGSDALE 09/21/2019 [facility] Outpatient Encounter [phone] _MAPID:en [id number] 09/24/2019 [facility] Outpatient Encounter [phone] _MAPID:en [id number] 10/23/2019 [facility] Outpatient Encounter [id number] ICD-10- CM Z46.1 Encounter for fitting and adjustment of hearing aid with Provider Comments: Encounter for Fitting and Adjustment of Hearing Aid MILI JJ 12/17/2019 [facility] Outpatient Encounter [phone] _MAPID:en [id number] 12/29/2019 [facility] Outpatient Encounter [phone] _MAPID:en [id number] 01/18/2020 [facility] Outpatient Encounter [id number] ICD-10- CM Z71.89 Other specified counseling with Provider Comments: Counseling,Oth Specified MAGEN CORONA F 01/18/2020 [facility] Outpatient Encounter [phone] _MAPID:en [id number] 02/04/2020 [facility] Outpatient Encounter [id number] ICD-10- CM Z71.89 Other specified counseling with Provider Comments: Counseling,Oth Specified MAGEN CORONA F 02/28/2020 [facility] Outpatient Encounter [phone] _MAPID:en [id number] 02/29/2020 [facility] Outpatient Encounter [phone] _MAPID:en dReason9 03/06/2020 [facility] Outpatient Encounter [phone] _MAPID:en dReason8 03/21/2020 [facility] Outpatient Encounter [phone] ICD-10-CM Z71.89 Other specified counseling with Provider Comments: Counseling,Oth Specified JAY GUERRERO 03/29/2020 [facility] Outpatient Encounter [id number] _MAPID: endReason6 04/05/2020 [facility] Outpatient Encounter [phone] _MAPID:en dReason5 04/05/2020 [facility] Outpatient Encounter [phone] _MAPID:en dReason4 04/07/2020 [facility] Outpatient Encounter [id number] ICD-10- CM N39.0 Urinary tract infection, site not specified with Provider Comments: Urinary tract infection, site not specified ALEXANDRA REYES 04/12/2020 [facility] Outpatient Encounter [id number] ICD-10- CM F33.9 Major depressive disorder, recurrent, unspecified with Provider Comments: Depression ([facility] [id number]) EDIILA ALVES 05/05/2020 [facility] Outpatient Encounter [phone] _MAPID:en dReason1 KESHAWN SHERMAN 05/07/2020 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 The included entrie s comply with the patient's data sharing authorizations. Social History Type Response Date Comment Source Tobacco smoking status MTIS V16 TOBACCO USE SCREEN 03/29/2020 [facility] [place] [facility] History of tobacco use VA-TO BACCO NEVER USED 03/29/2020 [facility] [place] [facility] History of tobacco use VA-TO BACCO NEVER [...] use V16 T OBACCO USE SCREEN 12/18/2010 [place] History of tobacco use V16 L IFETIME NON-TOBACCO USER 12/18/2010 [facility] [place] History of tobacco use V16 T OBACCO USE SCREEN 11/30/2009 [facility] [place] History of tobacco use V16 L IFETIME NON-TOBACCO USER 11/30/2009 [place] [place] History of tobacco use V16 T OBACCO USE SCREEN 11/25/2008 [facility] [place] History of tobacco use V16 L IFETIME NON-TOBACCO USER 11/25/2008 [facility] [place] History of tobacco use V16 T OBACCO USE SCREEN 01/08/2008 [facility] [place] History of tobacco use V16 L IFETIME NON-TOBACCO USER 01/08/2008 [place] [place] History of tobacco use V16 T OBACCO USE SCREEN 04/28/2007 [facility] [place] History of tobacco use V16 T OBACCO CESSATION >7 YEARS 04/28/2007 [place] [place] History of tobacco use V16 T OBACCO USE SCREEN 09/29/2006 [facility] [place] History of tobacco use V16 T OBACCO CESSATION > 12 MONTHS 09/29/2006 [place] History of tobacco use LIFET SHIRLENE NON-TOBACCO USER 05/21/2001 [facility] [place] History of tobacco use LIFET SHIRLENE NON-TOBACCO USER 11/20/2000 [facility] Assessment and Plan No Data Provided for This Section Plan of Care Date/Time Care Activity Care Activity Detail Facility 05/24/2020 AMBULATORY - NONE AMBULATORY - NONE [facility] 05/16/2020 AMBULATORY - PSYCHI ATRY AMBULATORY - PSYCHIATRY [facility] Family History No Data Provided for This Section Advance Directives No Data Provided for This Section Functional Status No Data Provided for This Section
--- OUTSIDE RECORDS SUMMARY | 2020-05-09 09:44 | XMS REPORT | Encounter Summary ---
Author Author Department [facility] MARGARET pereira Department [facility] Address [address] [place] [address] Phone Unavailable Care Team Providers Care Certified Massage Therapist Name Role Phone KESHAWN SHERMAN PCP [...] PART A Aug 20, 2011 PART A [id number] [phone] GUILLERMOMARGARET PATIENT MEDICARE (WNR) MEDICARE (M) PART B Aug 20, 2011 PART B [id number] [phone] GUILLERMOMARGARET PATIENT MEDICARE (WNR) MEDICARE (M) PART A Aug 20, 2011 PART A [id number] [id number] [phone] MARGARET LI PATIENT MEDICARE (WNR) MEDICARE (M) PART B Aug 20, 2011 PART B [id number] 80A [phone] MARGARET LI PATIENT Selected Encounter This section includes the information on record at [place] for the Encounter. Date/Time Encounter Type Encounter Description Reason Provider Source Mar 21, 2020 01:30 PM Outpatient Encounter [facility] Encounter Template Text not used by [place] Assessments - Encounter Diagnoses No Data Provided for This Section Plan of Treatment: Future Appointments (+ 6 months) and Future Tests (+/- 45 day s) The Plan of Treatment section includes future care activities for the patient fr om all [place] treatment facilities. This section includes future appointments and fu ture orders which are active, pending or scheduled. Future Appointments This section includes appointments that were scheduled t o occur 6 months from the date of the Encounter, up to a maximum of 20 appointme nts. The data comes from all [facility]. Appointment Date/Time Appointment Type Appointment Facili ty Name Mar 31, 2020 01:00 PM AMBULATORY - NONE [facility] Apr 05, 2020 07:30 AM AMBULATORY NONE [facility] Apr 05, 2020 08:30 AM AMBULATORY NONE [facility] Apr 12, 2020 09:30 AM [facility] May 05, 2020 03:09 PM AMBULATORY - PSYCHIATRY [facility] May 16, 2020 11:00 AM AMBULATORY NONE [facility] May 24, 2020 02:00 PM AMBULATORY - PSYCHIATRY [facility] Surgical Procedures: All associated to the encounter No Data Provided for This Section Lab Results: +/- 30 days of the encounter This section includes the Chemistry and Hematology Lab R esults on record with [place] for the patient. Radiology Reports and Pathology [...] 243 pg/mL [id number] Apr 05, 2020 07:35 [facility] GLYCO HGB A1C Specimen Type: BLOOD [...] and tobacco- related health factors from the [place] facility where the Encounter took place. Current Smoking Status This section includes the most current smoking, or tobacco -related health factor, from the [place] facility where the Encounter took place. Date/Time Current Smoking Status Comment Facility Nov 03, 2018 09:51 AM [place]-TOBACCO NEVER USED [facility] Tobacco Use History This section includes a history of the smoking, or tobacco -related health factors, that were collected on or before the date of the Encoun ter. The data comes from the [place] facility where the Encounter took place. Date/Time Smoking Status/Tobacco Use Comment [facility] Nov 03, 2018 09:51 AM [facility]-TOBACCO NEVER [...] patient. The data comes from a ll [place] treatment facilities. It does not list Allergies/ADRs [...] care team. The data comes from all [place] treatment facilities. Glossary of Pharmacy Terms:Active = A prescription that can be filled at the local [place] pharmacy.Active: On Hold = An active prescription that will not be filled until pharmacy resolves the issue.Active: Susp = An active prescription that is not scheduled to be filled yet.Clinic Order = A medication received during a visit to a [place] clinic or emergency department (currently not available).Discontinued [...] FOR BLOOD PRESSURE 90 Sep 24, 2020 [id number] Apr 07, 2020 [facility] ATENOLOL 50MG/CHLORTHALIDONE 25MG TAB Discontinued TA KE 1 TABLET BY MOUTH EVERY MORNING FOR BLOOD PRESSURE 90 Oct 17, 2019 [id number] Jul 26, 2019 V [facility] ATORVASTATIN CA 80MG TAB Active TAKE ONE-HALF T ABLET BY MOUTH AT BEDTIME FOR CHOLESTEROL - DO NOT TAKE WITH GRAPEFRUIT JUICE 45 Apr 11, 2021 [id number] Apr 10, 2020 [facility] ATORVASTATIN CA 80MG TAB Discontinued TAKE ONE-HALF T ABLET BY MOUTH AT BEDTIME FOR CHOLESTEROL - DO NOT TAKE WITH GRAPEFRUIT JUICE 45 Dec 23, 2019 [id number] Oct 14, 2019 [facility] CARBOXYMETHYLCELLULOSE NA 0.5% SOLN,OPH INSTILL ONE DROP IN EACH EYE FOUR TIMES DAILY 15 Feb 10, 2020 [id number] Feb 09, 2019 MAGEN COR[facility] CARBOXYMETHYLCELLULOSE NA 1% GEL,OPH INS TILL ONE DROP TO EACH EYE TWICE A DAY 15 Feb 10, 2020 [id number] Feb 09, 2019 [facility] CIPROFLOXACIN HCL 500MG TAB Active TAKE ONE TAB LET BY MOUTH TWICE A DAY - ANTIBIOTIC - TAKE UNTIL GONE *TAKE WITH FOOD AND AVOID TAKING WITH DAIRY OR PRODUCTS CONTAINING ALUMINUM, IRON, CALCIUM, OR MAGNESIUM* 14 J 2019 [id number] Apr 12, 2020 ALEXANDRA REYES [facility] FAMOTIDINE 40MG TAB Active TAKE ONE TABLET BY M OUTH ONCE DAILY FOR STOMACH/REFLUX 30 Apr 12, 2021 [id number] Apr 11, 2020 [facility] FAMOTIDINE 40MG TAB Discontinued TAKE ONE TABLET BY M OUTH ONCE DAILY FOR STOMACH/REFLUX 90 Sep 24, 2020 [id number] Dec 29, 2019 [facility] FLUTICASONE PROPIONATE 50MCG/SPRAY SOLN,NASAL,16GM Active USE 2 SPRAYS IN NOSE TWICE A DAY SHAKE GENTLY BEFORE USE 3 Apr 11, 2021 [id number] J 2019 [facility] FLUTICASONE PROPIONATE 50MCG/SPRAY SOLN,NASAL,16GM Discontin ued USE 2 SPRAYS IN NOSE TWICE A DAY SHAKE GENTLY BEFORE USE Dec 23, 2019 [id number] Jul 26, 2019 [facility] IBUPROFEN 600MG TAB Non- [facility] TAKE ONE TABLET BY MOUTH THREE TIMES DAILY WITH MEALS NEEDED Non-[facility] Documented by: KESHAWN SHERMAN Docume nted at: [place] [place] MAGNESIUM OXIDE 420MG TAB Active TAKE ONE TABLE T BY MOUTH TWICE A DAY TAKE WITH FOOD 100 Apr 11, 2021 [id number] Apr 10, 2020 [facility] MAGNES[facility]IDE 420MG TAB Discontinued TAKE ONE TABLE T BY MOUTH TWICE A DAY TAKE WITH FOOD 100 Jan 14, 2020 [id number] Dec 29, 2019 [facility] OMEPRAZOLE 20MG CAP,EC Active TAKE 1 CAPSULE BY MOUTH ONCE DAILY FOR THE STOMACH 90 Dec 30, 2020 [id number] Apr 07, 2020 [facility] OMEPRAZOLE 20MG CAP,EC Discontinued TAKE 1 CAPSULE BY MOUTH ONCE DAILY FOR THE STOMACH 90 Dec 23, 2019 [id number] Oct 14, 2019 [facility] POTASSIUM CHLORIDE 20MEQ TAB,SA (DISPERSIBLE) Active TAKE ONE TABLET BY MOUTH ONCE DAILY WITH FOOD 90 Dec 30, 2020 [id number] Apr 19, 2020 HAMLET SHERMAN [facility] POTASSIUM CHLORIDE 20MEQ TAB,SA (DISPERSIBLE) Discontinued TAKE ONE TABLET BY MOUTH ONCE DAILY WITH FOOD 90 Dec 23, 2019 [id number] Nov 11, 2019 [facility] RANITIDINE HCL 150MG TAB Discontinued TAKE TWO TABLET S BY MOUTH AT BEDTIME FOR STOMACH 180 Dec 23, 2019 [id number] Jul 26, 2019 [place] VENLAFAXINE HCL 37.5MG 24HR CAP,SA Active TAKE 3 CAPSULES BY MOUTH EVERY MORNING FOR MOOD 270 Apr 08, 2021 [id number] Apr 07, 2020 KENA RAGSDALE [facility] VENLAFAXINE HCL 37.5MG 24HR CAP,SA Discontinued TAKE 3 CAPSULES BY MOUTH EVERY MORNING FOR MOOD 270 Jun 01, 2020 [id number] Dec 29, 2019 IFEANYI [facility] VENLAFAXINE HCL 75MG 24HR CAP,SA Discontinued TAKE ON E CAPSULE BY MOUTH EVERY MORNING FOR MOOD 90 Apr 13, 2020 [id number] Apr 13, 2019 [facility] Problems (Conditions): All historical and current Section Date Range: From patient's date of to the date document was create d. This section includes a list of Problems (Conditions) know n to [facility] for the patient. It includes both active and inacti ve problems (conditions). The data comes from all [place] treatment facilities. Problem Status Problem Code Date of Onset Date of Resolution Comm ent(s) Provider Source Allergic rhinitis * (ICD-9-CM 477.9) Active 477.9 STEPHEN BARAJAS Chronic kidney disease stage 3 Active 899879764 KESHAWN SHERMAN Corneal epithelial dystrophy Active 870926631 [facility] Depression Active 60020082 [facility] Gastroesophageal reflux disease (SNOMED CT 870378454) Active [id number] 21466 Nov 30, 2009 Entered By: FRANCO HERNANDEZ Comment: hiatal herniaFeb 2009 Entered By: FRANCO HERNANDEZ Comment: schiatzski ringFeb 2010 Entered By: FRANCO HERNANDEZ Comment: omeprazole and Zantac.Jun 24, 2012 Entered By: FRANCO HERNANDEZ Comment: KESHAWN ALFONSO H/O: surgery Active [id number] Aug 21, 2012 Entered By: FRANCO HERNANDEZ [...] HERNANDEZ History of polyp of colon Active 740899053 February 24, 2009 Entered By: FRANCO HERNANDEZ Comment: next colonoscopy 2008 Entered By: FRANCO HERNANDEZ Comment: tubulovilousNov 2011 Entered By: FRANCO HERNANDEZ Comment: AUG 20, 2012@14:08:51 Colonoscopy :Diverticulosis Aug 21, 2012 Entered By: FRANCO HERNANDEZ Comment: Repeat of Colonoscopy in 5 years 2017 Entered By: KESHAWN SHERMAN Comment: he refuses repeat colonoscopy KESHAWN SHERMAN Hyperlipidemia Active 93784574 KESHAWN SHERMAN Hypertension Active 69895017 KESHAWN SHERMAN Hypotonic bladder Active 223167553 Dec 28, 2014 Entered By: KESHAWN SHERMAN Comment: Inability to void, was seen March 2013 with catheter placedDec 28, 2014 Entered By: KESHAWN SHERMAN Comment: Now has permanent suprapubic catheterDec 28, 2014 Entered By: KESHAWN SHERMAN Comment: D/c terazosin KESHAWN SHERMAN Impaired glucose tolerance Active 7404851 Dec 31, 2013 Entered By: KESHAWN SHERMAN Comment: A1c 5.9% Dec Entered By: KESHAWN SHERMAN Comment: 5.9% December Entered By: KESHAWN SHERMAN Comment: A1c 5.9% December Entered By: KESAHWN SHERMAN Comment: a1c 6.3% December 2018 KESHAWN SHERMAN Lumbago Active 916978624 VESTER,KESHAWN J [place] Monoclonal gammopathy of uncertain significance Active 626714992 [place]HAWN [place] Obesity Active 278.00 Nov 27, 2010 [...] FRANCO HERNANDEZ Comment: on effexor [place] Diverticulosis Inactive 562.10 Dec 25, 2017 February [...] Rescheduled w/patient for 03-21-2020 RESCHED PVR FROM 24 COVID19 PO 12-22-18 RTC MATCJ W/ B12 CBC A1C LIP MAG MAI ROSS TSH /es/ LETITIA GUTIERREZ PATIENT SERVICES [employer] OPERATOR-UNIQUE Signed: 01/06/2020 12:23 LEITTIA GUTIERREZ
--- OUTSIDE RECORDS SUMMARY | 2020-05-09 09:45 | XMS REPORT | Encounter Summary ---
Author Author Department of [facility] MARGARET pereira Organization Department of [facility] Address [address] [place] [address] Phone Unavailable Care Team Providers Care Manager Terminal Name Role Phone KESHAWN SHERMAN PCP Unavailable [...] PART A Aug 20, 2011 PART A [id number] [phone] GUILLERMOMARGARET PATIENT MEDICARE (WNR) MEDICARE (M) PART B Aug 20, 2011 PART B [id number] 80A [phone] GUILLERMOMARGARET PATIENT MEDICARE (WNR) MEDICARE (M) PART A Aug 20, 2011 PART A [id number] 80A [phone] GUILLERMOMARGARET PATIENT MEDICARE (WNR) MEDICARE (M) PART B Aug 20, 2011 PART B [id number] 80A [phone] MARGARET LI PATIENT Selected Encounter This section [...] activities for the patient fr om all [facility]. This section includes future appointments and fu ture orders which are active, pending or scheduled. Future Appointments This section includes appointments that were scheduled t o occur 6 months from the date of the Encounter, up to a maximum of 20 appointme nts. The data comes from all [facility]. Appointment Date/Time Appointment Type Appointment Facili ty Name Mar 31, 2020 01:00 PM AMBULATORY - NONE [facility] Apr 05, 2020 07:30 AM AMBULATORY - NONE [facility] Apr 05, 2020 08:30 AM AMBULATORY - NONE [facility] Apr 12, 2020 09:30 AM AMBULATORY - MEDICINE [facility] May 05, 2020 03:09 PM AMBULATORY - PS[facility]IATRY [facility] May 16, 2020 11:00 AM AMBULATORY - NONE [facility] May 24, 2020 02:00 PM AMBULATORY - PS[facility]ATRY [facility] Active, Pending, and [...] the Encounter. The data comes from all [facility]. Test Date/Time Test Type Test Details Facility Name Jan 19, 2020 01:04 PM Consult Order COMMUNITY CARE-OPT OMETRY Cons Speedboat Driver's Choice [facility] Surgical Procedures: All associated to the [...] and tobacco- related health factors from the [place] facility where the Encounter took place. Current Smoking Status This section includes the most current smoking, or tobacco -related health factor, from the [place] facility where the Encounter took place. Date/Time Current Smoking Status [facility] Facility Nov 03, 2018 09:51 AM VA-TOBACCO NEVER USED [place] [facility] Tobacco Use History This section includes a history of the smoking, or tobacco -related health factors, that were collected on or before the date of the Encoun ter. The data comes from the [place] facility where the Encounter took place. Date/Time [...] 08:51 AM V16 TOBACCO USE SCREEN [place] [facility] Dec 27, 2014 04:28 PM V16 LIFETIME NON-TOBACCO USER [facility] Dec 27, 2014 04:28 PM V16 TOBACCO USE SCREEN [facility] Dec 29, 2013 03:57 PM V16 LIFETIME NON-TOBACCO USER [facility] Dec 29, 2013 03:57 PM V16 TOBACCO USE SCREEN [facility] Jun 24, 2012 12:25 PM V16 LIFETIME NON-TOBACCO USER [facility] Jun 24, 2012 12:25 PM V16 TOBACCO USE SCREEN [facility] Dec 18, 2010 01:24 PM V16 LIFETIME NON-TOBACCO USER [facility] Dec 18, 2010 01:24 PM V16 TOBACCO USE SCREEN [facility] Nov 30, 2009 01:24 PM V16 LIFETIME NON-TOBACCO USER [facility] Nov 30, 2009 01:24 PM V16 TOBACCO USE SCREEN [facility] Nov 25, 2008 01:22 PM V16 LIFETIME NON-TOBACCO USER [facility] Nov 25, 2008 01:22 PM V16 TOBACCO USE SCREEN [facility] Jan 08, 2008 12:49 PM V16 LIFETIME NON-TOBACCO USER [facility] Jan 08, 2008 12:49 PM V16 TOBACCO [...] (-15 months) and Non-VA Documented (Obtained Outside [facility]) Section Date Range: 1) prescriptions processed by [...] FOR BLOOD PRESSURE 90 Sep 24, 2020 [id number] Apr 07, 2020 KESHAWN JOHNSON [facility] ATENOLOL 50MG/CHLORTHALIDONE 25MG TAB Discontinued TA KE 1 TABLET BY MOUTH EVERY MORNING FOR BLOOD PRESSURE 90 Oct 17, 2019 [id number] Jul 26, 2019 V KESHAWN VAUGHN [facility] ATORVASTATIN CA 80MG TAB Active TAKE ONE-HALF T ABLET BY MOUTH AT BEDTIME FOR CHOLESTEROL - DO NOT TAKE WITH GRAPEFRUIT JUICE 45 Apr 11, 2021 [id number] Apr 10, 2020 KESHAWN SHERMAN [facility] ATORVASTATIN CA 80MG TAB Discontinued TAKE ONE-HALF T ABLET BY MOUTH AT BEDTIME FOR CHOLESTEROL - DO NOT TAKE WITH GRAPEFRUIT JUICE 45 Dec 23, 2019 [id number] Oct 14, 2019 KESHAWN SHERMAN [facility] CARBOXYMETHYLCELLULOSE NA 0.5% SOLN,OPH INSTILL ONE DROP IN EACH EYE FOUR TIMES DAILY 15 Feb 10, 2020 [id number] Feb 09, 2019 MAGEN CORONA [facility] CARBOXYMETHYLCELLULOSE NA 1% GEL,OPH INS TILL ONE DROP TO EACH EYE TWICE A DAY Feb 10, 2020 [id number] Feb 09, [address] [facility] CIPROFLOXACIN HCL 500MG TAB Active TAKE ONE TAB LET BY MOUTH TWICE A DAY - ANTIBIOTIC - TAKE UNTIL GONE *TAKE WITH FOOD AND AVOID TAKING WITH DAIRY OR PRODUCTS CONTAINING ALUMINUM, IRON, CALCIUM, OR MAGNESIUM* 14 J 2019 [id number] Apr 12, [address] [facility] FAMOTIDINE 40MG TAB Active TAKE ONE TABLET BY M OUTH ONCE DAILY FOR STOMACH/REFLUX 30 Apr 12, 2021 [id number] Apr 11, 2020 KESHAWN SHERMAN [facility] FAMOTIDINE 40MG TAB Discontinued TAKE ONE TABLET BY M OUTH ONCE DAILY FOR STOMACH/REFLUX 90 Sep 24, 2020 [id number] Dec 29, 2019 KESHAWN SHERMAN [facility] FLUTICASONE PROPIONATE 50MCG/SPRAY SOLN,NASAL,16GM Active USE 2 SPRAYS IN NOSE TWICE A DAY SHAKE GENTLY BEFORE USE Apr 11, 2021 [id number] J 2019 KESHAWN [facility]MANFORM[facility]LY [facility] FLUTICASONE PROPIONATE 50MCG/SPRAY SOLN,NASAL,16GM Discontin ued USE 2 SPRAYS IN NOSE TWICE A DAY SHAKE GENTLY BEFORE USE Dec 23, 2019 [id number] Jul 26, 2019 KESHAWN SHERMAN [facility] IBUPROFEN 600MG TAB Non- VA TAKE ONE TABLET BY MOUTH THREE TIMES DAILY WITH MEALS NEEDED Non-VA Documented by: KESHAWN SHERMAN [facility]ume [facility]ted [facility] MAGNESIUM OXIDE 420MG TAB Active TAKE ONE TABLE T BY MOUTH TWICE A DAY TAKE WITH FOOD 100 Apr 11, 2021 [id number] Apr 10, 2020 KESHAWN SHERMANFORMERLY [facility] MAGNESIUM OXIDE 420MG TAB Discontinued TAKE ONE TABLE T BY MOUTH TWICE A DAY TAKE WITH FOOD 100 Jan 14, 2020 [id number] Dec 29, 2019 KESHAWN SHERMAN [facility] OMEPRAZOLE 20MG CAP,EC Active TAKE 1 CAPSULE BY MOUTH ONCE DAILY FOR THE STOMACH 90 Dec 30, 2020 [id number] Apr 07, 2020 KESHAWN [facility]MANFORMERLY [facility] OMEPRAZOLE 20MG CAP,EC Discontinued TAKE 1 CAPSULE BY MOUTH ONCE DAILY FOR THE STOMACH 90 Dec 23, 2019 [id number] Oct 14, 2019 KESHAWN SHERMAN [facility] POTASSIUM CHLORIDE 20MEQ TAB,SA (DISPERSIBLE) Active TAKE ONE TABLET BY MOUTH ONCE DAILY WITH FOOD 90 Dec 30, 2020 [id number] Apr 19, [address] [facility] POTASSIUM CHLORIDE 20MEQ TAB,SA (DISPERSIBLE) Discontinued TAKE ONE TABLET BY MOUTH ONCE DAILY WITH FOOD 90 Dec 23, 2019 [id number] Nov 11, 2019 [facility] RANITIDINE HCL 150MG TAB Discontinued TAKE TWO TABLET S BY MOUTH AT BEDTIME FOR STOMACH 180 Dec 23, 2019 [id number] Jul 26, 2019 KESHAWN SHERMAN [facility] VENLAFAXINE HCL 37.5MG 24HR CAP,SA Active TAKE 3 CAPSULES BY MOUTH EVERY MORNING FOR MOOD 270 Apr 08, 2021 [id number] Apr 07, 2020 KENA RAGSDALE [facility] VENLAFAXINE HCL 37.5MG 24HR CAP,SA Discontinued TAKE 3 CAPSULES BY MOUTH EVERY MORNING FOR MOOD 270 Jun 01, 2020 [id number] Dec 29, 2019 KENA RAGSDALE [facility] VENLAFAXINE HCL 75MG 24HR CAP,SA Discontinued TAKE ON E CAPSULE BY MOUTH EVERY MORNING FOR MOOD 90 Apr 13, 2020 [id number] Apr 13, 2019 KESHAWN SHERMAN [facility] Problems (Conditions): All historical and current Section [...] BARAJAS Chronic kidney disease stage 3 Active 311636772 KESHAWN SHERMAN Corneal epithelial dystrophy Active 547736301 [facility] [place] [facility] Depression Active 92692541 KESHAWN SHERMAN Gastroesophageal reflux disease (SNOMED CT 032081725) Active 2355 39267 Nov 30, 2009 Entered By: FRANCO HERNANDEZ Comment: hiatal herniaFeb 2009 Entered By: FRANCO HERNANDEZ Comment: schiatzski ringFeb 2010 Entered By: FRANCO HERNANDEZ Comment: omeprazole and Zantac.Jun 24, 2012 Entered By: FRANCO HERNANDEZ Comment: GERD KESHAWN SHERMAN H/O: surgery Active [id number] Aug 21, 2012 Entered By: FRANCO HERNANDEZ [...] HERNANDEZ History of polyp of colon Active 216212470 February 24, 2009 Entered By: FRANCO HERNANDEZ Comment: next colonoscopy 2008 Entered By: FRANCO HERNANDEZ Comment: tubulovilousNov 2011 Entered By: FRANCO HERNANDEZ Comment: AUG 20, 2012@14:08:51 Colonoscopy :Diverticulosis Aug 21, 2012 Entered By: FRANCO HERNANDEZ Comment: Repeat of Colonoscopy in 5 years 2017 Entered By: KESHAWN SHERMAN Comment: he refuses repeat colonoscopy KESHAWN SHERMAN Hyperlipidemia Active 61561637 KESHAWN SHERMAN Hypertension Active 11115490 KESHAWN SHERMAN Hypotonic bladder Active 165739466 Dec 28, 2014 Entered By: KESHAWN SHERMAN Comment: Inability to void, was seen March 2013 with catheter placedDec 28, 2014 Entered By: KESHAWN SHERMAN Comment: Now has permanent suprapubic catheterDec 28, 2014 Entered By: KESHAWN SHERMAN Comment: D/c terazosin KESHAWN SHERMAN Impaired glucose tolerance Active 7999724 Dec 31, 2013 Entered By: KESHAWN SHERMAN Comment: A1c 5.9% Dec Entered By: KESHAWN SHERMAN Comment: 5.9% December Entered By: KESHAWN SHERMAN Comment: A1c 5.9% December Entered By: KESHAWN SHERMAN Comment: a1c 6.3% December 2018 KESHAWN SHERMAN Lumbago Active 046044562 KESHAWN SHERMAN Monoclonal gammopathy of uncertain significance Active 269285971 KESHAWN SHERMAN Obesity Active 278.00 Nov 27, [...] 4 55.0 Dec 25, 2017 FRANCO HERNANDEZ AR LUMBAGO/LOW BACK PAIN Inactive 724.2 Dec 25, 2017 PROV DAJA SAMPSON UNIQUE AR Noncompliance, Medication Regimen (ICD-9-CM V15.81) Inactive V1 5.81 Dec 25, 2017 CAROLINAMARCELLOSEDRICKSTEPHEN SALVADOR Radiology Reports: +/- 30 days of the [...] STATUS: COMPLETED PATIENT NAME: MARGARET LI SSN: [id number] FUTURE APPOINTMENTS: Jan@13:00 JOP TARIQ PSYCH MD 1 Mar@12:00 [facility] LAB NON FASTING Mar@13:30 FAV PC TM 1 PATIENT'S HOME PHONE: CALL TAKEN BY: Fabien French REASON FOR CALL: Please call patient about replacing broken glasses /marilyn/ FABIEN FRENCH ADVANCED COMPUTER FORENSICS ANALYST-WENDEN Signed: 01/18/2020 15:55 Receipt Acknowledged By: 01/18/2020 16:19 /marilyn/ MELIA RIVER LPN PRIMARY CARE LICENSED PRACTICAL NURSE-FABIEN DENG [facility]
--- OUTSIDE RECORDS SUMMARY | 2020-05-09 09:45 | XMS REPORT | Encounter Summary ---
Author Author Department [facility] MARGARET pereira Organization Department [facility] Address [address] [place] [id number] Phone Unavailable Care Team Providers Care Plastics Factory Worker Name Role Phone KESHAWN SHERMAN PCP [...] PART A Aug 20, 2011 PART A [id number] 80A [phone] MARGARET LI PATIENT MEDICARE (WNR) MEDICARE (M) PART B Aug 20, 2011 PART B [id number] 80A [phone] GUILLERMOMARGARET PATIENT MEDICARE (WNR) MEDICARE (M) PART A Aug 20, 2011 PART A [id number] 80A [phone] GUILLERMOMARGARET PATIENT MEDICARE (WNR) MEDICARE (M) PART B Aug 20, 2011 PART B [id number] 80A [phone] MARGARET LI PATIENT Selected Encounter This section includes the information on record at [place] for the Encounter. Date/Time Encounter Type Encounter Description Reason Provider Source Jan 18, 2020 04:23 PM Outpatient Encounter TELEPHONE/OPTOMETRY I CD-10-CM Z71.89 Other specified counseling with Provider Comments: Counseling,Oth Specified MAGEN CORONA [facility] IHE Encounter Template Text not used by VA Assessments - Encounter Diagnoses This section includes the primary and secondary diag noses documented for the Encounter. Date/Time Primary/Secondary Diagnosis Diagnosis Name Provider Source Jan 18, 2020 04:23 PM PRIMARY Other specified counseling MELIA SCHAFFER [facility] Plan of Treatment: Future Appointments (+ 6 months) and Future Tests (+/- 45 day s) The Plan of Treatment section includes future care activities for the patient fr om all [facility] facilities. This section includes future appointments and [...] 2020 01:00 PM AMBULATORY - NONE [facility] Apr 05, 2020 07:30 AM AMBULATORY - NONE [facility] Apr 05, 2020 08:30 AM AMBULATORY - NONE [facility] Apr 12, 2020 09:30 AM AMBULATORY - MEDICINE [facility] May 05, 2020 03:09 PM AMBULATORY - PS[facility]IATRY [facility] May 16, 2020 11:00 AM AMBULATORY - NONE [facility] May 24, 2020 02:00 PM AMBULATORY - PS[facility]CHIATRY [facility] Active, Pending, and Scheduled Orders [...] PM Consult Order COMMUNITY CARE-OPT OMETRY Cons Compass Operator's Choice [facility] Surgical Procedures: All associated to [...] Adverse Reactions (ADR s) on record with [place] for the patient. The data comes from [...] VA pharmacy in the last 15 m [facility], and 2) all medications recorded in the [place] medical record as "non-VA medic ations". Pharmacy terms refer to [place] pharmacy's work on prescriptions. VA patient s [...] FOR BLOOD PRESSURE 90 Sep 24, 2020 [id number] Apr 07, 2020 V KESHAWN VAUGHN [facility] ATENOLOL 50MG/CHLORTHALIDONE 25MG TAB Discontinued TA KE 1 TABLET BY MOUTH EVERY MORNING FOR BLOOD PRESSURE 90 Oct 17, 2019 [id number] Jul 26, 2019 V KESHAWN VAUGNH [facility] ATORVASTATIN CA 80MG TAB Active TAKE ONE-HALF T ABLET BY MOUTH AT BEDTIME FOR CHOLESTEROL - DO NOT TAKE WITH GRAPEFRUIT JUICE 45 Apr 11, 2021 [id number] Apr 10, 2020 KESHAWN SHERMAN [facility] ATORVASTATIN CA 80MG TAB Discontinued TAKE ONE-HALF T ABLET BY MOUTH AT BEDTIME FOR CHOLESTEROL - DO NOT TAKE WITH GRAPEFRUIT JUICE 45 Dec 23, 2019 [id number] Oct 14, 2019 KESHAWN SHERMAN [facility] CARBOXYMETHYLCELLULOSE NA 0.5% SOLN,OPH INSTILL ONE DROP IN EACH EYE FOUR TIMES DAILY 15 Feb 10, 2020 [id number] Feb 09, 2019 MAGEN CORONA [facility] CARBOXYMETHYLCELLULOSE NA 1% GEL,OPH INS TILL ONE DROP TO EACH EYE TWICE A DAY 15 Feb 10, 2020 [id number] Feb 09, 2019 MAGEN CORONA [facility] CIPROFLOXACIN HCL 500MG TAB Active TAKE ONE TAB LET BY MOUTH TWICE A DAY - ANTIBIOTIC - TAKE UNTIL GONE *TAKE WITH FOOD AND AVOID TAKING WITH DAIRY OR PRODUCTS CONTAINING ALUMINUM, IRON, CALCIUM, OR MAGNESIUM* 14 J 2019 [id number] Apr 12, 2020 ALEXANDRA REYES [facility] FAMOTIDINE 40MG TAB Active TAKE ONE TABLET BY M OUTH ONCE DAILY FOR STOMACH/REFLUX 30 Apr 12, 2021 [id number] Apr 11, 2020 KESHAWN SHERMAN [facility] FAMOTIDINE 40MG TAB Discontinued TAKE ONE TABLET BY M OUTH ONCE DAILY FOR STOMACH/REFLUX 90 Sep 24, 2020 [id number] Dec 29, 2019 KESHAWN SHERMAN [facility] FLUTICASONE PROPIONATE 50MCG/SPRAY SOLN,NASAL,16GM Active USE 2 SPRAYS IN NOSE TWICE A DAY SHAKE GENTLY BEFORE USE 3 Apr 11, 2021 [id number] J 2019 KESHAWN SHERMAN [facility] FLUTICASONE PROPIONATE 50MCG/SPRAY SOLN,NASAL,16GM Discontin ued USE 2 SPRAYS IN NOSE TWICE A DAY SHAKE GENTLY BEFORE USE 3 Dec 23, 2019 [id number] Jul 26, 2019 KESHAWN SHERMAN [facility] IBUPROFEN 600MG TAB Non- VA TAKE ONE TABLET BY MOUTH THREE TIMES DAILY WITH MEALS NEEDED Non-VA Documented by: KESHAWN SHERMAN Docume nted at: [facility] MAGNESIUM OXIDE 420MG TAB Active TAKE ONE TABLE T BY MOUTH TWICE A DAY TAKE WITH FOOD 100 Apr 11, 2021 [id number] Apr 10, 2020 KESHAWN SHERMANFORMERLY [facility] MAGNESIUM OXIDE 420MG TAB Discontinued TAKE ONE TABLE T BY MOUTH TWICE A DAY TAKE WITH FOOD 100 Jan 14, 2020 [id number] Dec 29, 2019 KESHAWN SHERMAN [facility] OMEPRAZOLE 20MG CAP,EC Active TAKE 1 CAPSULE BY MOUTH ONCE DAILY FOR THE STOMACH 90 Dec 30, 2020 [id number] Apr 07, 2020 KESHAWN SH[facility]MANFORMERLY [facility] OMEPRAZOLE 20MG CAP,EC Discontinued TAKE 1 CAPSULE BY MOUTH ONCE DAILY FOR THE STOMACH 90 Dec 23, 2019 [id number] Oct 14, 2019 KESHAWN SH[facility]MANFORMERLY [facility] POTASSIUM CHLORIDE 20MEQ TAB,SA (DISPERSIBLE) Active TAKE ONE TABLET BY MOUTH ONCE DAILY WITH FOOD 90 Dec 30, 2020 [id number] Apr 19, 2020 [facility] POT[facility]IDE 20MEQ TAB,SA (DISPERSIBLE) Discontinued TAKE ONE TABLET BY MOUTH ONCE DAILY WITH FOOD 90 Dec 23, 2019 [id number] Nov 11, 2019 [facility] RANITIDINE HCL 150MG TAB Discontinued TAKE TWO TABLET S BY MOUTH AT BEDTIME FOR STOMACH 180 Dec 23, 2019 [id number] Jul 26, 2019 KESHAWN SHERMAN [facility] VENLAFAXINE HCL 37.5MG 24HR CAP,SA Active TAKE 3 CAPSULES BY MOUTH EVERY MORNING FOR MOOD 270 Apr 08, 2021 [id number] Apr 07, 2020 [facility] VENLAFAXINE HCL 37.5MG 24HR CAP,SA Discontinued TAKE 3 CAPSULES BY MOUTH EVERY MORNING FOR MOOD 270 Jun 01, 2020 [id number] Dec 29, 2019 [facility]AGSDALE [facility] VENLAFAXINE HCL 75MG 24HR CAP,SA Discontinued TAKE ON E CAPSULE BY MOUTH EVERY MORNING FOR MOOD 90 Apr 13, 2020 [id number] Apr 13, 2019 KESHAWN SHERMAN [facility] Problems (Conditions): All historical and [...] BARAJAS Chronic kidney disease stage 3 Active 283898179 KESHAWN SHERMAN Corneal epithelial dystrophy Active 493993109 [facility] [place] [facility] Depression Active 38449946 KESHAWN SHERMAN [place] Gastroesophageal reflux disease (SNOMED CT 494581272) Active 1843 71209 Nov 30, 2009 Entered By: FRANCO HERNANDEZ Comment: hiatal herniaNov 30, 2009 Entered By: FRANCO HERNANDEZ Comment: schiatzski ringFeb 2010 Entered By: FRANCO EHRNANDEZ Comment: omeprazole and Zantac.Jun 24, 2012 Entered By: FRANCO HERNANDEZ Comment: GERD KESHAWN SHERMAN H/O: surgery Active 233827056 Aug 21, 2012 Entered By: FRANCO HERNANDEZ [...] HERNANDEZ History of polyp of colon Active 679828244 February 24, 2009 Entered By: FRANCO HERNANDEZ Comment: next colonoscopy 2008 Entered By: FRANCO HERNANDEZ Comment: tubulovilousNov 2011 Entered By: FRANCO HERNANDEZ Comment: AUG 20, 2012@14:08:51 Colonoscopy :Diverticulosis Aug 21, 2012 Entered By: FRANCO HERNANDEZ Comment: Repeat of Colonoscopy in 5 years 2017 Entered By: KESHAWN SHERMAN Comment: he refuses repeat colonoscopy KESHAWN SHERMAN Hyperlipidemia Active 04966117 KESHAWN SHERMAN Hypertension Active 31546451 KESHAWN SHERMAN Hypotonic bladder Active 982133322 Dec 28, 2014 Entered By: KESHAWN SHERMAN Comment: Inability to void, was seen March 2013 with catheter placedDec 28, 2014 Entered By: KESHAWN SHERMAN Comment: Now has permanent suprapubic catheterDec 28, 2014 Entered By: KESHAWN SHERMAN Comment: D/c terazosin KESHAWN SHERMAN Impaired glucose tolerance Active 9029662 Dec 31, 2013 Entered By: KESHAWN SHERMAN Comment: A1c 5.9% Dec Entered By: KESHAWN SHERMAN Comment: 5.9% December Entered By: KESHAWN SHERMAN Comment: A1c 5.9% December Entered By: KESHAWN SHERMAN Comment: a1c 6.3% December 2018 KESHAWN SHERMAN Lumbago Active 263559795 KESHAWN SHERMAN Monoclonal gammopathy of uncertain significance Active 744270521 KESHAWN SHERMAN Obesity Active 278.00 Nov 27, [...] URGENCY: STATUS: COMPLETED EYEGLASS PRESCRIPTION Has ADDENDA [facility] System of [address] [address] Eye Clinic: Exam Date: Jan Expiration Date: Jan : MARGARET LI Right Eye: -6.75-0.65x749 Left Eye: -4.25-2.75e835 ADD:+2.50 Lens Style: Bifocal Lens Material: Polycarbonate Additional Options: Tint Medically Authorized Additions:OK for gradient tint /marilyn/ MAGEN CORONA, OD STAFF CONVERTIBLE TOP INSTALLER, [facility] Signed: 01/19/2020 08:29 01/19/2020 ADDENDUM STATUS: COMPLETED Location:[facility] Reason for request:New RX Delivery Instructions: Mail to : GuillermoMargaret harvey [phone] [place] [address] [facility] RX INFORMATION OD -[id number] OS -4.25-2.24y745 Add: +2.50 END RX INFORMATION FITTING INFORMATION FPD: 62.5 NPD: [place]: R: L: SEG HEIGHT: 16 TINT: Silva/Leona SHADE: Gradient 1 END FITTING INFORMATION [facility] Billable Items FRAME: [MODERN FELIPE BLACK] 53/16/145 LENSES: POLYCARBONATE BIFOCAL FT28 Silva/Leona Gradient 1 /marilyn/ MAGEN CORONA, ROXANNA STAFF CONVERTIBLE TOP INSTALLER, [facility] Signed: 01/19/2020 08:43 [facility] Jan 18, 2020 04:23 PM EYE TELEPHONE ENCOUNTER NOTE : LOCAL TITLE: TELECARE-EYE STANDARD TITLE: EYE TELEPHONE ENCOUNTER NOTE DATE OF NOTE: JAN 18, 2020@16:23 ENTRY DATE: JAN 18, 2020@16:23:45 AUTHOR: MELIA CARRILLO COSIGNER: URGENCY: STATUS: COMPLETED TELECARE-EYE Has ADDENDA Returned call to patient. He said his glasses are broken in half. He is requesting a replacement. Feels his vision is stable however he goes on to say that he was never scheduled with [facility] for his cataracts, nat vision exam, and possible strabismus surgery. Patient said no one contacted him and that [facility] was not aware of any appointments. Advised glasses will be mailed to him and that someone will be contacting him regarding follow up appointment(s). /marilyn/ MELIA CARRILLO LPN PRIMARY CARE LICENSED PRACTICAL NURSE-[place] Signed: 01/18/2020 16:28 Receipt Acknowledged By: 01/19/2020 08:24 /marilyn/ MAGEN BLOOM OD STAFF CONVERTIBLE TOP INSTALLER, [facility] 01/19/2020 ADDENDUM STATUS: COMPLETED Order for replacement glasses placed today. Reviewed eye exam note dated 04/19/[address] Terence MD, strabismus s pecialist at [facility]. Pt was encouraged to have another cataract surgery evaluation and possible cataract surgery before considering eye muscle surgery to correct double vision. Please ask pt if he would like to be scheduled for another eye exam here at the [facility] or be seen locally through [facility] Optometry consult as he lives in [place], [place]. Either way, evaluation will not occur for a couple of months due to ongoing COVID 19 pandemic. Thanks. /marilyn/ MAGEN CORONA OD STAFF CONVERTIBLE TOP INSTALLER, [facility] Signed: 01/19/2020 11:31 Receipt Acknowledged By: 01/19/2020 12:45 /es/ MELIA RIVER LPN [facility]IMARY [facility] 01/19/2020 ADDENDUM STATUS: COMPLETED Spoke with patient on the phone. He prefers to use [employer] [facility] where he lives in [place], [place]. Advised a consult will be entered [...] MELIA CARRILLO LPN PRIMARY CARE LICENSED PRACTICAL NURSE-[place] Signed: 01/19/2020 12:50 Receipt Acknowledged By: 01/19/2020 12:56 /marilyn/ MAGEN BLOOM OD STAFF CONVERTIBLE TOP INSTALLER, [facility] MELIA CARRILLO [facility]
--- OUTSIDE RECORDS SUMMARY | 2020-05-09 09:45 | XMS REPORT | Encounter Summary ---
Author Author Department [facility] MARGARET pereira Organization Department [facility] Address [address] [place] [id number] Phone Unavailable Care Team Providers Care Dress Cutter Name Role Phone KESHAWN SHERMAN PCP Unavailable [...] PART A Aug 20, 2011 PART A [id number] [phone] MARGARET LI PATIENT MEDICARE (WNR) MEDICARE (M) PART B Aug 20, 2011 PART B [id number] 80A [id number] GUILLERMOMARGARET PATIENT MEDICARE (WNR) MEDICARE (M) PART A Aug 20, 2011 PART A [id number] 80A [phone] GUILLERMOMARGARET PATIENT MEDICARE (WNR) MEDICARE (M) PART B Aug 20, 2011 PART B [id number] 80A [phone] GUILLERMOMARGARET PATIENT Selected Encounter This section includes the information on record at [place] for the Encounter. Date/Time Encounter Type Encounter Description Reason Provider Source February 28, 2020 03:46 PM Outpatient Encounter TELEPHONE/OPTOMETRY I CD-10-CM Z71.89 Other specified counseling with Provider Comments: Counseling,Oth Specified MAGEN CORONA [facility] IHE Encounter Template Text not used [...] activities for the patient fr om all [facility] facilities. This section includes future appointments and fu ture orders which are active, pending or scheduled. Future Appointments This section includes appointments that were scheduled t o occur 6 months from the date of the Encounter, up to a maximum of 20 appointme nts. The data comes from all [facility]. Appointment Date/Time Appointment Type Appointment Facili ty Name Mar 31, 2020 01:00 PM AMBULATORY - NONE [facility] Apr 05, 2020 07:30 AM AMBULATORY - NONE [facility] Apr 05, 2020 08:30 AM AMBULATORY - NONE [facility] Apr 12, 2020 09:30 AM AMBULATORY - MEDICINE [facility] May 05, 2020 03:09 PM AMBULATORY - PS[facility]IATRY [facility] May 16, 2020 11:00 AM AMBULATORY - NONE [facility] May 24, 2020 02:00 PM AMBULATORY - PSYCHIATRY [facility] Active, Pending, and Scheduled Orders [...] comes from all [facility]. Test Date/Time Test Type Test Details Facility Name Jan 19, 2020 01:04 PM Consult Order COMMUNITY CARE-OPT OMETRY Cons Md Physician Dermatologist's Choice [facility] [...] Adverse Reactions (ADR s) on record with [place] for the patient. The data comes from [...] [facility] pharmacy in the last 15 m [facility], and 2) all medications recorded in the [place] medical record as "non-VA medic ations". Pharmacy terms refer to [place] pharmacy's work on prescriptions. VA patient s [...] FOR BLOOD PRESSURE 90 Sep 24, 2020 [id number] Apr 07, 2020 V KESHAWN VAUGHN [facility] ATENOLOL 50MG/CHLORTHALIDONE 25MG TAB Discontinued TA KE 1 TABLET BY MOUTH EVERY MORNING FOR BLOOD PRESSURE 90 Oct 17, 2019 [id number] Jul 26, 2019 V KESHAWN VAUGHN [facility] ATORVASTATIN CA 80MG TAB Active TAKE ONE-HALF T ABLET BY MOUTH AT BEDTIME FOR CHOLESTEROL - DO NOT TAKE WITH GRAPEFRUIT JUICE 45 Apr 11, 2021 [id number] Apr 10, 2020 KESHAWN SHERMAN [facility] ATORVASTATIN CA 80MG TAB Discontinued TAKE ONE-HALF T ABLET BY MOUTH AT BEDTIME FOR CHOLESTEROL - DO NOT TAKE WITH GRAPEFRUIT JUICE 45 Dec 23, 2019 [id number] Oct 14, 2019 KESHAWN SHERMAN [facility] CARBOXYMETHYLCELLULOSE NA 0.5% SOLN,OPH INSTILL ONE DROP IN EACH EYE FOUR TIMES DAILY 15 Feb 10, 2020 [id number] Feb 09, 2019 MAGEN CORONA [facility] CARBOXYMETHYLCELLULOSE NA 1% GEL,OPH INS TILL ONE DROP TO EACH EYE TWICE A DAY 15 Feb 10, 2020 [id number] Feb 09, 2019 MAGEN CORONA [facility] CIPROFLOXACIN HCL 500MG TAB Active TAKE ONE TAB LET BY MOUTH TWICE A DAY - ANTIBIOTIC - TAKE UNTIL GONE *TAKE WITH FOOD AND AVOID TAKING WITH DAIRY OR PRODUCTS CONTAINING ALUMINUM, IRON, CALCIUM, OR MAGNESIUM* 14 J 2019 [id number] Apr 12, 2020 ALEXANDRA REYES [facility] FAMOTIDINE 40MG TAB Active TAKE ONE TABLET BY M OUTH ONCE DAILY FOR STOMACH/REFLUX 30 Apr 12, 2021 [id number] Apr 11, 2020 KESHAWN SHERMAN [facility] FAMOTIDINE 40MG TAB Discontinued TAKE ONE TABLET BY M OUTH ONCE DAILY FOR STOMACH/REFLUX 90 Sep 24, 2020 [id number] Dec 29, 2019 KESHAWN SHERMAN [facility] FLUTICASONE PROPIONATE 50MCG/SPRAY SOLN,NASAL,16GM Active USE 2 SPRAYS IN NOSE TWICE A DAY SHAKE GENTLY BEFORE USE 3 Apr 11, 2021 [id number] J 2019 KESHAWN SHERMAN [facility] FLUTICASONE PROPIONATE 50MCG/SPRAY SOLN,NASAL,16GM Discontin ued USE 2 SPRAYS IN NOSE TWICE A DAY SHAKE GENTLY BEFORE USE 3 Dec 23, 2019 [id number] Jul 26, 2019 KESHAWN SHERMAN [facility] IBUPROFEN 600MG TAB Non- VA TAKE ONE TABLET BY MOUTH THREE TIMES DAILY WITH MEALS NEEDED Non-VA Documented by: KESHAWN SHERMAN Docume nted at: [facility] MAGNESIUM OXIDE 420MG TAB Active TAKE ONE TABLE T BY MOUTH TWICE A DAY TAKE WITH FOOD 100 Apr 11, 2021 [id number] Apr 10, 2020 [facility] MAGNESIUM OXIDE 420MG TAB Discontinued TAKE ONE TABLE T BY MOUTH TWICE A DAY TAKE WITH FOOD 100 Jan 14, 2020 [id number] Dec 29, 2019 KESHAWN SHERMAN [facility] OMEPRAZOLE 20MG CAP,EC Active TAKE 1 CAPSULE BY MOUTH ONCE DAILY FOR THE STOMACH 90 Dec 30, 2020 [id number] Apr 07, 2020 [facility] OMEPRAZOLE 20MG CAP,EC Discontinued TAKE 1 CAPSULE BY MOUTH ONCE DAILY FOR THE STOMACH 90 Dec 23, 2019 [id number] Oct 14, 2019 [facility] POTASSIUM CHLORIDE 20MEQ TAB,SA (DISPERSIBLE) Active TAKE ONE TABLET BY MOUTH ONCE DAILY WITH FOOD 90 Dec 30, 2020 [id number] Apr 19, 2020 [facility]IDE 20MEQ TAB,SA (DISPERSIBLE) Discontinued TAKE ONE TABLET BY MOUTH ONCE DAILY WITH FOOD 90 Dec 23, 2019 [id number] Nov 11, 2019 [facility] RANITIDINE HCL 150MG TAB Discontinued TAKE TWO TABLET S BY MOUTH AT BEDTIME FOR STOMACH 180 Dec 23, 2019 [id number] Jul 26, 2019 KESHAWN SHERMAN [facility] VENLAFAXINE HCL 37.5MG 24HR CAP,SA Active TAKE 3 CAPSULES BY MOUTH EVERY MORNING FOR MOOD 270 Apr 08, 2021 [id number] Apr 07, 2020 [facility] VENLAFAXINE HCL 37.5MG 24HR CAP,SA Discontinued TAKE 3 CAPSULES BY MOUTH EVERY MORNING FOR MOOD 270 Jun 01, 2020 [id number] Dec 29, 2019 [facility] VENLAFAXINE HCL 75MG 24HR CAP,SA Discontinued TAKE ON E CAPSULE BY MOUTH EVERY MORNING FOR MOOD 90 Apr 13, 2020 [id number] Apr 13, 2019 KESHAWN SHERMAN [facility] Problems (Conditions): All historical and current [...] BARAJAS Chronic kidney disease stage 3 Active [id number] KESHAWN SHERMAN Corneal epithelial dystrophy Active 067533899 [facility] [place] [facility] Depression Active 10220894 KESHAWN SHERMAN [place] Gastroesophageal reflux disease (SNOMED CT 781284695) Active 9908 45825 Nov 30, 2009 Entered By: FRANCO HERNANDEZ Comment: hiatal herniaNov 30, 2009 Entered By: FRANCO HERNANDEZ Comment: schiatzski ringFeb 2010 Entered By: FRANCO HERNANDEZ Comment: omeprazole and Zantac.Jun 24, 2012 Entered By: FRANCO HERNANDEZ Comment: GERD KESHAWN SHERMAN H/O: surgery Active 186838781 Aug 21, 2012 Entered By: FRANCO HERNANDEZ [...] HERNANDEZ History of polyp of colon Active 960705065 February 24, 2009 Entered By: FRANCO HERNANDEZ Comment: next colonoscopy 2008 Entered By: FRANCO HERNANDEZ Comment: tubulovilousNov 2011 Entered By: FRANCO HERNANDEZ Comment: AUG 20, 2012@14:08:51 Colonoscopy :Diverticulosis Aug 21, 2012 Entered By: FRANCO HERNANDEZ Comment: Repeat of Colonoscopy in 5 years 2017 Entered By: KESHAWN SHERMAN Comment: he refuses repeat colonoscopy EKSHAWN SHERMAN Hyperlipidemia Active 04943424 KESHAWN SHERMAN Hypertension Active 11808158 KESHAWN SHERMAN Hypotonic bladder Active 147398375 Dec 28, 2014 Entered By: KESHAWN SHERMAN Comment: Inability to void, was seen March 2013 with catheter placedDec 28, 2014 Entered By: KESHAWN SHERMAN Comment: Now has permanent suprapubic catheterDec 28, 2014 Entered By: KESHAWN SHERMAN Comment: D/c terazosin KESHAWN SHERMAN Impaired glucose tolerance Active 3436604 Dec 31, 2013 Entered By: KESHAWN SHERMAN Comment: A1c 5.9% Dec Entered By: KESHAWN SHERMAN Comment: 5.9% December Entered By: KESHAWN SHERMAN Comment: A1c 5.9% December Entered By: KESHAWN SHERMAN Comment: a1c 6.3% December 2018 KESHAWN SHERMAN Lumbago Active 556685867 KESHAWN SHERMAN Monoclonal gammopathy of uncertain significance Active 092877809 KESHAWN SHERMAN Obesity Active 278.00 Nov 27, [...] MELIA CARRILLO LPN PRIMARY CARE LICENSED PRACTICAL NURSE-[facility] Signed: 02/28/2020 15:50 Receipt Acknowledged By: 02/28/2020 16:17 /marilyn/ MAGEN BLOOM OD STAFF TURBINE TECHNICIAN, [facility] 02/28/2020 ADDENDUM STATUS: COMPLETED Placed another order today for replacement glasses. Last order was placed 01/19/20. /es/ MAGEN OCRONA, ROXANNA STAFF TURBINE TECHNICIAN, [facility] Signed: 02/28/2020 16:21 03/20/2020 ADDENDUM STATUS: COMPLETED pt would like to discuss glasses please return his call. /marilyn/ NELY VASQUES ADVANCED HORTICULTURE INSTRUCTOR-[place] Signed: 03/20/2020 13:23 Receipt Acknowledged By: 03/20/2020 13:37 /marilyn/ MELIA RIVER LPN PRIMARY CARE LICENSED [facility] 03/20/2020 ADDENDUM STATUS: COMPLETED Request came [...] to provider for any other recommendations. /marilyn/ MELIA CARRILLO LPN PRIMARY CARE LICENSED [facility]ACTICAL [facility] Signed: 03/20/2020 13:57 Receipt Acknowledged By: 03/20/2020 14:08 /marilyn/ MAGEN BLOOM, OD STAFF TURBINE TECHNICIAN, [facility] 03/20/2020 ADDENDUM STATUS: COMPLETED It looks like pt is currently scheduled to see Dr Khadijah MD, at [facility] on 03/31/20 at 1300 for cataract surgery [...] to proceed. /marilyn/ MAGEN CORONA, ROXANNA STAFF TURBINE TECHNICIAN, [facility] Signed: 03/20/2020 14:19 Receipt Acknowledged By: 03/20/2020 14:37 /marilyn/ MELIA RIVER LEARNING MANAGER PRIMARY CARE LICENSED PRACTICAL [facility] 03/20/2020 ADDENDUM STATUS: COMPLETED Spoke to patient and gave him info per provider. Patient states he wants to be seen for the cataract eval and have surgery if needed before he pursues getting new glasses. Advised I will let his provider know of his decision. Pt voiced understanding and agreement. /marilyn/ MELIA CARRILLO LPN PRIMARY CARE LICENSED PRACTICAL [facility] Signed: 03/20/2020 14:39 Receipt Acknowledged By: 03/20/2020 14:49 /neeta BLOOM, OD STAFF TURBINE TECHNICIAN, [facility] MELIA CARRILLO [facility]
--- OUTSIDE RECORDS SUMMARY | 2020-05-09 09:45 | XMS REPORT | Encounter Summary ---
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 This section includes future appointments and fu ture orders which are active, pending or scheduled. Future Appointments This section includes appointments that were scheduled t o occur 6 months from the date of the Encounter, up to a maximum of 20 appointme nts. The data comes from all [facility]. Appointment Date/Time Appointment Type Appointment Facili ty Name Mar 31, 2020 01:00 PM AMBULATORY - NONE [facility] Apr 05, 2020 07:30 AM AMBULATORY - NONE [facility] Apr 05, 2020 08:30 AM AMBULATORY - NONE [facility] Apr 12, 2020 09:30 AM AMBULATORY - MEDICINE [facility] May 05, 2020 03:09 PM AMBULATORY - PSYCHIATRY [facility] May 16, 2020 11:00 AM AMBULATORY - NONE [facility] May 24, 2020 02:00 PM AMBULATORY - PSYCHIATRY [facility] Active, Pending, and Scheduled [...] the Encounter. The data comes from all [facility]. 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 Date/Time Current Smoking Status [facility] Facility Nov 03, 2018 09:51 AM VA-TOBACCO [...] 03, 2018 09:51 AM VA-TOBACCO NEVER USED [place] Oct 24, 2017 10:25 AM V16 LIFETIME NON-TOBACCO USER [place] Oct 24, 2017 10:25 AM V16 TOBACCO USE SCREEN [place] Dec 25, 2016 01:31 PM V16 LIFETIME NON-TOBACCO USER [place] Dec 25, 2016 01:31 PM V16 TOBACCO USE SCREEN [place] Jan 03, 2016 08:51 AM V16 LIFETIME NON-TOBACCO USER [place] Jan 03, 2016 08:51 AM V16 TOBACCO USE SCREEN [place] Dec 27, 2014 04:28 PM V16 LIFETIME NON-TOBACCO USER [place] Dec 27, 2014 04:28 PM V16 TOBACCO USE SCREEN [place] Dec 29, 2013 03:57 PM V16 LIFETIME NON-TOBACCO USER [place] Dec 29, 2013 03:57 PM V16 TOBACCO USE SCREEN [place] Jun 24, 2012 12:25 PM V16 LIFETIME NON-TOBACCO USER [place] Jun 24, 2012 12:25 PM V16 TOBACCO USE SCREEN [place] Dec 18, 2010 01:24 PM V16 LIFETIME NON-TOBACCO USER [place] Dec 18, 2010 01:24 PM V16 TOBACCO USE SCREEN [place] Nov 30, 2009 01:24 PM V16 LIFETIME NON-TOBACCO USER [place] Nov 30, 2009 01:24 PM V16 TOBACCO USE SCREEN [place] Nov 25, 2008 01:22 PM V16 LIFETIME NON-TOBACCO USER [place] Nov 25, 2008 01:22 PM V16 TOBACCO USE SCREEN [place] Jan 08, 2008 12:49 PM V16 LIFETIME NON-TOBACCO USER [place] Jan 08, 2008 12:49 PM V16 TOBACCO USE SCREEN [place] Apr 28, 2007 01:53 PM V16 TOBACCO CESSATION >7 YEARS [place] Apr 28, 2007 01:53 PM V16 TOBACCO [...] pharmacy in the last 15 m [facility], and 2) all medications recorded [...] medication received during a visit to a VA clinic or emergency department (currently not available).Discontinued [...] FOR BLOOD PRESSURE 90 Sep 24, 2020 [id number] Apr 07, 2020 V KESHAWN VAUGHN [facility] ATENOLOL 50MG/CHLORTHALIDONE 25MG TAB Discontinued TA KE 1 TABLET BY MOUTH EVERY MORNING FOR BLOOD PRESSURE 90 Oct 17, 2019 [id number] Jul 26, 2019 V KESHAWN VAUGHN [facility] ATORVASTATIN CA 80MG TAB Active TAKE ONE-HALF T ABLET BY MOUTH AT BEDTIME FOR CHOLESTEROL - DO NOT TAKE WITH GRAPEFRUIT JUICE 45 Apr 11, 2021 [id number] Apr 10, 2020 KESHAWN SHERMAN [facility] ATORVASTATIN CA 80MG TAB Discontinued TAKE ONE-HALF T ABLET BY MOUTH AT BEDTIME FOR CHOLESTEROL - DO NOT TAKE WITH GRAPEFRUIT JUICE 45 Dec 23, 2019 [id number] Oct 14, 2019 KESHAWN SHERMAN [facility] CARBOXYMETHYLCELLULOSE NA 0.5% SOLN,OPH INSTILL ONE DROP IN EACH EYE FOUR TIMES DAILY Feb 10, 2020 [id number] Feb 09, 2019 MAGEN CORONA [facility] CARBOXYMETHYLCELLULOSE NA 1% GEL,OPH INS TILL ONE DROP TO EACH EYE TWICE A DAY Feb 10, 2020 [id number] Feb 09, 2019 MAGEN CORONA [facility] CIPROFLOXACIN HCL 500MG TAB Active TAKE ONE TAB LET BY MOUTH TWICE A DAY - ANTIBIOTIC - TAKE UNTIL GONE *TAKE WITH FOOD AND AVOID TAKING WITH DAIRY OR PRODUCTS CONTAINING ALUMINUM, IRON, CALCIUM, OR MAGNESIUM* 14 J 2019 [id number] Apr 12, 2020 ALEXANDRA REYES [facility] FAMOTIDINE 40MG TAB Active TAKE ONE TABLET BY M OUTH ONCE DAILY FOR STOMACH/REFLUX 30 Apr 12, 2021 [id number] Apr 11, 2020 KESHAWN SHERMAN [facility] FAMOTIDINE 40MG TAB Discontinued TAKE ONE TABLET BY Nick DURAND ONCE DAILY FOR STOMACH/REFLUX 90 Sep 24, 2020 [id number] Dec 29, 2019 KESHAWN SHERMAN [facility] FLUTICASONE PROPIONATE 50MCG/SPRAY SOLN,NASAL,16GM Active USE 2 SPRAYS IN NOSE TWICE A DAY SHAKE GENTLY BEFORE USE Apr 11, 2021 [id number] J 2019 KESHAWN SHERMAN [facility] FLUTICASONE PROPIONATE 50MCG/SPRAY SOLN,NASAL,16GM Discontin ued USE 2 SPRAYS IN NOSE TWICE A DAY SHAKE GENTLY BEFORE USE Dec 23, 2019 [id number] Jul 26, 2019 KESHAWN SHERMAN [facility] IBUPROFEN 600MG TAB Non- VA TAKE ONE TABLET BY MOUTH THREE TIMES DAILY WITH MEALS NEEDED Non-VA Documented by: KESHAWN SHERMAN [place] MAGNESIUM OXIDE 420MG TAB Active TAKE ONE TABLE T BY MOUTH TWICE A DAY TAKE WITH FOOD 100 Apr 11, 2021 [id number] Apr 10, 2020 [facility] MAGNESIUM OXIDE 420MG TAB Discontinued TAKE ONE TABLE T BY MOUTH TWICE A DAY TAKE WITH FOOD 100 Jan 14, 2020 [id number] Dec 29, 2019 KESHAWN SHERMAN [facility] OMEPRAZOLE 20MG CAP,EC Active TAKE 1 CAPSULE BY MOUTH ONCE DAILY FOR THE STOMACH 90 Dec 30, 2020 [id number] Apr 07, 2020 [facility] OMEPRAZOLE 20MG CAP,EC Discontinued TAKE 1 CAPSULE BY MOUTH ONCE DAILY FOR THE STOMACH 90 Dec 23, 2019 [id number] Oct 14, 2019 KESHAWN SHERMAN [facility] POTASSIUM CHLORIDE 20MEQ TAB,SA (DISPERSIBLE) Active TAKE ONE TABLET BY MOUTH ONCE DAILY WITH FOOD 90 Dec 30, 2020 [id number] Apr 19, 2020 HAMLET SHERMAN [facility] POTASSIUM CHLORIDE 20MEQ TAB,SA (DISPERSIBLE) Discontinued TAKE ONE TABLET BY MOUTH ONCE DAILY WITH FOOD 90 Dec 23, 2019 [id number] Nov 11, 2019 KESHAWN JOHNSON [facility] RANITIDINE HCL 150MG TAB Discontinued TAKE TWO TABLET S BY MOUTH AT BEDTIME FOR STOMACH 180 Dec 23, 2019 [id number] Jul 26, 2019 KESHAWN SHERMAN VENLAFAXINE HCL 37.5MG 24HR CAP,SA Active TAKE 3 CAPSULES BY MOUTH EVERY MORNING FOR MOOD 270 Apr 08, 2021 [id number] Apr 07, 2020 KENA [facility]AGSDALE [facility] VENLAFAXINE HCL 37.5MG 24HR CAP,SA Discontinued TAKE 3 CAPSULES BY MOUTH EVERY MORNING FOR MOOD 270 Jun 01, 2020 [id number] Dec 29, 2019 [facility] VENLAFAXINE HCL 75MG 24HR CAP,SA Discontinued TAKE ON E CAPSULE BY MOUTH EVERY MORNING FOR MOOD 90 Apr 13, 2020 [id number] Apr 13, 2019 KESHAWN SHERMAN [facility] Problems (Conditions): All historical and current Section [...] BARAJAS Chronic kidney disease stage 3 Active 686875500 KESHAWN SHERMAN Corneal epithelial dystrophy Active 127780145 [facility] Depression Active 39923564 [place]HAWN [place]ER[place] Gastroesophageal reflux disease (SNOMED CT 239058048) Active 2355 25081 Nov 30, 2009 Entered By: FRANCO HERNANDEZ Comment: hiatal herniaFeb 2009 Entered By: FRANCO HERNANDEZ Comment: schiatzski ringFeb 2010 Entered By: FRANCO HERNANDEZ Comment: omeprazole and Zantac.Jun 24, 2012 Entered By: FRANCO HERNANDEZ Comment: GERD KESHAWN SHERMAN H/O: surgery Active 318545330 Aug 21, 2012 Entered By: FRANCO HERNANDEZ [...] HERNANDEZ History of polyp of colon Active 337429686 February 24, 2009 Entered By: FRANCO HERNANDEZ Comment: next colonoscopy 2008 Entered By: FRANCO HERNANDEZ Comment: tubulovilousAug 21, 2012 Entered By: FRANCO HERNANDEZ Comment: AUG 20, 2012@14:08:51 Colonoscopy :Diverticulosis Aug 21, 2012 Entered By: FRANCO HERNANDEZ Comment: Repeat of Colonoscopy in 5 years 2017 Entered By: KESHAWN SHERMAN Comment: he refuses repeat colonoscopy KESHAWN SHERMAN Hyperlipidemia Active 18937309 KESHAWN SHERMAN Hypertension Active 52944021 KESHAWN SHERMAN Hypotonic bladder Active 519593340 Dec 28, 2014 Entered By: KESHAWN SHERMAN Comment: Inability to void, was seen March 2013 with catheter placedDec 28, 2014 Entered By: KESHAWN SHERMAN Comment: Now has permanent suprapubic catheterDec 28, 2014 Entered By: KESHAWN SHERMAN Comment: D/c terazosin KESHAWN SHERMAN Impaired glucose tolerance Active 7818908 Dec 31, 2013 Entered By: KESHAWN SHERMAN Comment: A1c 5.9% Dec Entered By: KESHAWN SHERMAN Comment: 5.9% December Entered By: KESHAWN SHERMAN Comment: A1c 5.9% December Entered By: KESHAWN SHERMAN Comment: a1c 6.3% December 2018 KESHAWN SHERMAN Lumbago Active 222134003 KESHAWN SHERMAN Monoclonal gammopathy of uncertain significance Active 767722615 KESHAWN SHERMAN Obesity Active 278.00 Nov 27, [...] Entered By: FRANCO HERNANDEZ Comment: on effexor KARL,STEPHEN DAWKINS [place] Diverticulosis Inactive 562.10 Dec 25, 2017 February 24, 2009 Entered By: FRANCO HERNANDEZ Comment: descending and sigmoidNov 2011 Entered By: FRANCO HERNANDEZ Comment: AUG 20, 2012@14:08:51 Colonoscopy :Diverticulosis FRANCO HERNANDEZ HYPERCHOLESTEROLEMIA Inactive 272.0 Dec 25, 2017 Se p 2011 Entered By: FRANCO HERNANDZE Comment: low chol dietSep 2011 Entered By: [...] 25, 2017 MARY JANE DAJA SAMPSON [place] Noncompliance, Medication Regimen [...] STATUS: COMPLETED VistA Imaging - Scanned Document [facility] 04/02/2019----02/29/2020 VISIT---CHEIKH /marilyn/ GINNY EID Signed: 03/03/2020 10:00 GINNY EID [facility]
--- OUTSIDE RECORDS SUMMARY | 2020-05-09 09:45 | XMS REPORT | Encounter Summary ---
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 Date/Time Encounter Type Encounter [...] activities for the patient fr om all [facility]. This section includes future appointments and fu ture orders which are active, pending or scheduled. Future Appointments This section includes appointments that were scheduled t o occur 6 months from the date of the Encounter, up to a maximum of 20 appointme nts. The data comes from all [facility]. Appointment Date/Time Appointment Type Appointment Facili ty Name Jan 11, 2020 11:30 AM AMBULATORY - MEDICINE [facility] Jan 11, 2020 01:00 PM AMBULATORY - MEDICINE [facility] Mar 31, 2020 01:00 PM AMBULATORY - NONE [facility] Apr 05, 2020 07:30 AM AMBULATORY - NONE [facility] Apr 05, 2020 08:30 AM AMBULATORY - NONE [facility] Apr 12, 2020 09:30 AM AMBULATORY - MEDICINE [facility] May 05, 2020 03:09 PM AMBULATORY - PS[facility]ATRY [facility] May 16, 2020 11:00 AM AMBULATORY - NONE [facility] May 24, 2020 02:00 PM AMBULATORY - PS[facility]ATRY [facility] Active, Pending, and Scheduled Orders [...] the Encounter. The data comes from all [facility]. Test Date/Time Test Type Test Details Facility Name Jan 19, 2020 01:04 PM Consult Order COMMUNITY CARE-OPT OMETRY Cons Chief [place] Division's Choice [facility] Surgical Procedures: All associated to the [...] and tobacco- related health factors from the ID facility where the Encounter took place. Current Smoking Status This section includes the most current smoking, or tobacco -related health factor, from the ID facility where the Encounter took place. Date/Time Current Smoking Status Comment Facility Nov 03, 2018 09:51 AM VA-TOBACCO NEVER USED [place] [facility] Tobacco Use History This section includes a history of the smoking, or tobacco -related health factors, that were collected on or before the date of the Encoun ter. The data comes from the ID facility where the Encounter took place. Date/Time Smoking Status/Tobacco Use Comment [facility] Nov 03, 2018 09:51 AM VA-TOBACCO NEVER USED [place] Oct 24, 2017 10:25 AM V16 LIFETIME NON-[place]BACCO USER [place] Oct 24, 2017 10:25 AM V16 TOBACCO USE SCREEN [place] Dec 25, 2016 01:31 PM V16 LIFETIME NON-TOBACCO USER [place] Dec 25, 2016 01:31 PM V16 TOBACCO USE SCREEN [place] Jan 03, 2016 08:51 AM V16 LIFETIME NON-TOBACCO USER [place] Jan 03, 2016 08:51 AM V16 TOBACCO USE SCREEN [place] Dec 27, 2014 04:28 PM V16 LIFETIME NON-TOBACCO USER [place] Dec 27, 2014 04:28 PM V16 TOBACCO USE SCREEN [place] Dec 29, 2013 03:57 PM V16 LIFETIME NON-TOBACCO USER [place] Dec 29, 2013 03:57 PM V16 TOBACCO USE SCREEN [place] Jun 24, 2012 12:25 PM V16 LIFETIME NON-TOBACCO USER [place] Jun 24, 2012 12:25 PM V16 TOBACCO USE SCREEN [place] Dec 18, 2010 01:24 PM V16 LIFETIME NON-TOBACCO USER [place] Dec 18, 2010 01:24 PM V16 TOBACCO USE SCREEN [place] Nov 30, 2009 01:24 PM V16 LIFETIME NON-TOBACCO USER [place] Nov 30, 2009 01:24 PM V16 TOBACCO USE SCREEN [place] Nov 25, 2008 01:22 PM V16 LIFETIME NON-TOBACCO USER [place] Nov 25, 2008 01:22 PM V16 TOBACCO USE SCREEN [place] Jan 08, 2008 12:49 PM V16 LIFETIME NON-TOBACCO USER [place] Jan 08, 2008 12:49 PM V16 TOBACCO [...] 2000 01:09 PM LIFETIME NON-TOBACCO USER [place] [place] [place] Advance Directives: All historical and current No Data Provided for This Section Allergies and Adverse Reactions (ADRs): All historical and current Section Date Range: From patient's date of to the date document was create d. This section includes Allergies and Adverse Reactions (ADR s) on record with VA for the patient. The data comes from a ll ID treatment facilities. It does not list Allergies/ADRs [...] VA pharmacy in the last 15 m [facility], and 2) all medications recorded in the ID medical record as "non-VA medic ations". Pharmacy terms refer to ID pharmacy's work on prescriptions. VA patient s are advised to take their medications as instructed by their health care team. The data comes from all ID treatment facilities. Glossary of Pharmacy Terms:Active = A prescription that can be filled at the local ID pharmacy.Active: On Hold = An active prescription that will not be filled until pharmacy resolves the issue.Active: Susp = An active prescription that is not scheduled to be filled yet.Clinic Order = A medication received during a visit to a ID clinic or emergency department (currently not available).Discontinued [...] may be a prescription from either the ID or other providers that was filled outside the ID. Or, it may be an over the [...] FOR BLOOD PRESSURE 90 Sep 24, 2020 [id number] Apr 07, 2020 V KESHAWN VAUGHN [facility] ATENOLOL 50MG/CHLORTHALIDONE 25MG TAB Discontinued TA KE 1 TABLET BY MOUTH EVERY MORNING FOR BLOOD PRESSURE 90 Oct 17, 2019 [id number] Jul 26, 2019 V KESHAWN VAUGHN [facility] ATORVASTATIN CA 80MG TAB Active TAKE ONE-HALF T ABLET BY MOUTH AT BEDTIME FOR CHOLESTEROL - DO NOT TAKE WITH GRAPEFRUIT JUICE 45 Apr 11, 2021 [id number] Apr 10, 2020 KESHAWN SHERMAN [facility] ATORVASTATIN CA 80MG TAB Discontinued TAKE ONE-HALF T ABLET BY MOUTH AT BEDTIME FOR CHOLESTEROL - DO NOT TAKE WITH GRAPEFRUIT JUICE 45 Dec 23, 2019 [id number] Oct 14, 2019 KESHAWN SHERMAN [facility] CARBOXYMETHYLCELLULOSE NA 0.5% SOLN,OPH INSTILL ONE DROP IN EACH EYE FOUR TIMES DAILY 15 Feb 10, 2020 [id number] Feb 09, 2019 [facility] CORONA [facility] CARBOXYMETHYLCELLULOSE NA 1% GEL,OPH INS TILL ONE DROP TO EACH EYE TWICE A DAY 15 Feb 10, 2020 [id number] Feb 09, 2019 MAGEN CORNOA [facility] CIPROFLOXACIN HCL 500MG TAB Active TAKE ONE TAB LET BY MOUTH TWICE A DAY - ANTIBIOTIC - TAKE UNTIL GONE *TAKE WITH FOOD AND AVOID TAKING WITH DAIRY OR PRODUCTS CONTAINING ALUMINUM, IRON, CALCIUM, OR MAGNESIUM* 14 J 2019 [id number] Apr 12, 2020 [facility] RE[facility] FAMOTIDINE 40MG TAB Active TAKE ONE TABLET BY M OUTH ONCE DAILY FOR STOMACH/REFLUX 30 Apr 12, 2021 [id number] Apr 11, 2020 KESHAWN SHERMAN [facility] FAMOTIDINE 40MG TAB Discontinued TAKE ONE TABLET BY Nick LADARIUS ONCE DAILY FOR STOMACH/REFLUX 90 Sep 24, 2020 [id number] Dec 29, 2019 KESHAWN SHERMAN [facility] FLUTICASONE PROPIONATE 50MCG/SPRAY SOLN,NASAL,16GM Active USE 2 SPRAYS IN NOSE TWICE A DAY SHAKE GENTLY BEFORE USE Apr 11, 2021 [id number] J 2019 KESHAWN SHERMAN [facility] FLUTICASONE PROPIONATE 50MCG/SPRAY SOLN,NASAL,16GM Discontin ued USE 2 SPRAYS IN NOSE TWICE A DAY SHAKE GENTLY BEFORE USE 3 Dec 23, 2019 [id number] Jul 26, 2019 KESHAWN SHERMAN [facility] IBUPROFEN 600MG TAB Non- VA TAKE ONE TABLET BY MOUTH THREE TIMES DAILY WITH MEALS NEEDED Non-VA Documented by: KESHAWN SHERMAN Docume nted at: [facility] [place] MAGNESIUM OXIDE 420MG TAB Active TAKE ONE TABLE T BY MOUTH TWICE A DAY TAKE WITH FOOD 100 Apr 11, 2021 [id number] Apr 10, 2020 [facility] MAGNES[facility] OXIDE 420MG TAB Discontinued TAKE ONE TABLE T BY MOUTH TWICE A DAY TAKE WITH FOOD 100 Jan 14, 2020 [id number] Dec 29, 2019 KESHAWN SHERMAN [facility] OMEPRAZOLE 20MG CAP,EC Active TAKE 1 CAPSULE BY MOUTH ONCE DAILY FOR THE STOMACH 90 Dec 30, 2020 [id number] Apr 07, 2020 KESHAWN SHERMAN [facility] OMEPRAZOLE 20MG CAP,EC Discontinued TAKE 1 CAPSULE BY MOUTH ONCE DAILY FOR THE STOMACH 90 Dec 23, 2019 [id number] Oct 14, 2019 KESHAWN SHERMAN [facility] POTASSIUM CHLORIDE 20MEQ TAB,SA (DISPERSIBLE) Active TAKE ONE TABLET BY MOUTH ONCE DAILY WITH FOOD 90 Dec 30, 2020 [id number] Apr 19, 2020 HAMELT SHERMAN [facility] POTASSIUM CHLORIDE 20MEQ TAB,SA (DISPERSIBLE) Discontinued TAKE ONE TABLET BY MOUTH ONCE DAILY WITH FOOD 90 Dec 23, 2019 [id number] Nov 11, 2019 KESHAWN JOHNSON [facility] RANITIDINE HCL 150MG TAB Discontinued TAKE TWO TABLET S BY MOUTH AT BEDTIME FOR STOMACH 180 Dec 23, 2019 [id number] Jul 26, 2019 KESHAWN SHERMAN [place] VENLAFAXINE HCL 37.5MG 24HR CAP,SA Active TAKE 3 CAPSULES BY MOUTH EVERY MORNING FOR MOOD 270 Apr 08, 2021 [id number] Apr 07, 2020 KENA RAGSDALE [facility] VENLAFAXINE HCL 37.5MG 24HR CAP,SA Discontinued TAKE 3 CAPSULES BY MOUTH EVERY MORNING FOR MOOD 270 Jun 01, 2020 [id number] Dec 29, 2019 KENA RAGSDALE [place] VENLAFAXINE HCL 75MG 24HR CAP, Discontinued TAKE ON E CAPSULE BY MOUTH EVERY MORNING FOR MOOD 90 Apr 13, 2020 [id number] Apr 13, 2019 EKSHAWN SHERMAN [facility] Problems (Conditions): All historical and current Section Date Range: From patient's date of to the date document was create d. This section includes a list of Problems (Conditions) know n to VA for the patient. It includes both active and inacti ve problems (conditions). The data comes from all ID treatment facilities. Problem Status Problem Code Date of Onset Date of Resolution Comm ent(s) Provider Source Allergic rhinitis * (ICD-9-CM 477.9) Active 477.9 STEPHEN BARAJAS Chronic kidney disease stage 3 Active 125296099 KESHAWN SHERMAN Corneal epithelial dystrophy Active 790646092 [facility] Depression Active 41086311 [place] Gastroesophageal reflux disease (SNOMED CT 596091234) Active 3342 92282 Nov 30, 2009 Entered By: FRANCO HERNANDEZ Comment: hiatal herniaFe2009 Entered By: FRANCO HERNANDEZ Comment: schiatzski ringFeb 2010 Entered By: FRANCO HERNANDEZ Comment: omeprazole and Zantac.Jun 24, 2012 Entered By: FRANCO HERNANDEZ Comment: GERD KESHAWN SHERMAN H/O: surgery Active 505125432 Aug 21, 2012 Entered By: FRANCO HERNANDEZ [...] HERNANDEZ History of polyp of colon Active 542162766 February 24, 2009 Entered By: FRANCO HERNANDEZ Comment: next colonoscopy 2008 Entered By: FRANCO HERNANDEZ Comment: tubulovilousNov 2011 Entered By: FRANCO HERNANDEZ Comment: AUG 20, 2012@14:08:51 Colonoscopy :Diverticulosis Aug 21, 2012 Entered By: FRANCO HERNANDEZ Comment: Repeat of Colonoscopy in 5 years 2017 Entered By: KESHAWN SHERMAN Comment: he refuses repeat colonoscopy KESHAWN SHERMAN Hyperlipidemia Active 37381424 KESHAWN SHERMAN Hypertension Active 18327966 KESHAWN SHERMAN Hypotonic bladder Active 051150801 Dec 28, 2014 Entered By: KESHAWN SHERMAN Comment: Inability to void, was seen March 2013 with catheter placedDec 28, 2014 Entered By: KESHAWN SHERMAN Comment: Now has permanent suprapubic catheterDec 28, 2014 Entered By: KESHAWN SHERMAN Comment: D/c terazosin KESHAWN SHERMAN Impaired glucose tolerance Active 0797624 Dec 31, 2013 Entered By: KESHAWN SHERMAN Comment: A1c 5.9% Dec Entered By: KESHAWN SHERMAN Comment: 5.9% December Entered By: KESHAWN SHERMAN Comment: A1c 5.9% December Entered By: KESHAWN SHERMAN Comment: a1c 6.3% December 2018 KESHAWN SHERMAN Lumbago Active 417040477 KESHAWN SHERMAN Monoclonal gammopathy of uncertain significance Active 543224975 KESHAWN SHERMAN Obesity Active 278.00 Nov 27, [...] ANDINO EXP COSIGNER: URGENCY: STATUS: COMPLETED Problem: has requested the following medications be renewed and mailed when due: [id number] POTASSIUM CL 20MEQ SA TAB (DISPERSIBLE) E> 12-2223 0 90 Qty: 90 Intervention/Outcome: Note sent to clinic PLEASE CALL PHARMACY @ EXT [phone] FOR ANY QUESTIONS OR FOLLOW-UP /es/ KIA ANDINO CPhT METHODS SPECIALIST ENGINEER Signed: 12/29/2019 13:25 Receipt Acknowledged By: * AWAITING SIGNATURE * KESHAWN SHERMAN [place]
--- OUTSIDE RECORDS SUMMARY | 2020-05-09 09:45 | XMS REPORT | Encounter Summary ---
Author Author Department of [facility] MARGARET pereira Department of [facility] Address [address] [place] [address] Phone Unavailable Care Team Providers Care Applied Researcher Name Role Phone KESHAWN SHERMAN PCP Unavailable [...] PART A Aug 20, 2011 PART A [id number] [phone] GUILLERMOMARGARET PATIENT MEDICARE (WNR) MEDICARE (M) PART B Aug 20, 2011 PART B [id number] 80A [phone] GUILLERMOMARGARET PATIENT MEDICARE (WNR) MEDICARE (M) PART A Aug 20, 2011 PART A [id number] 80A [phone] GUILLERMOMARGARET PATIENT MEDICARE (WNR) MEDICARE (M) PART B Aug 20, 2011 PART B [id number] 80A [phone] MARGARET LI PATIENT Selected Encounter This section includes the information on record at ID for the Encounter. Date/Time Encounter Type Encounter Description Reason Provider Source Feb 04, 2020 01:34 PM Outpatient Encounter OPTOMETRY [facility] IHE Encounter Template Text not used by VA Assessments - Encounter Diagnoses No Data Provided for This Section Plan of Treatment: Future Appointments (+ 6 months) and Future Tests (+/- 45 day s) The Plan of Treatment section includes future care activities for the patient fr om all [facility]. This section includes future appointments and fu ture orders which are active, pending or scheduled. Future Appointments This section includes appointments that were scheduled t o occur 6 months from the date of the Encounter, up to a maximum of 20 appointme nts. The data comes from all [facility]. Appointment Date/Time Appointment Type Appointment Facili ty Name Mar 31, 2020 01:00 PM AMBULATORY - NONE [facility] Apr 05, 2020 07:30 AM AMBULATORY - NONE [facility] Apr 05, 2020 08:30 AM AMBULATORY - NONE [facility] Apr 12, 2020 09:30 AM AMBULATORY - MEDICINE [facility] May 05, 2020 03:09 PM AMBULATORY - PS[facility]IATRY [facility] May 16, 2020 11:00 AM AMBULATORY - NONE [facility] May 24, 2020 02:00 PM AMBULATORY - PS[facility]CHIATRY [facility] Active, Pending, and Scheduled Orders [...] the Encounter. The data comes from all [facility]. Test Date/Time Test Type Test Details Facility Name Jan 19, 2020 01:04 PM Consult Order COMMUNITY CARE-OPT OMETRY Cons Bakery Team Member's Choice [facility] OPC Surgical Procedures: All associated to the [...] Encounter took place. Date/Time Current Smoking Status [facility] Facility Nov 03, 2018 09:51 [...] AM V16 LIFETIME NON-TOBACCO USER [place] Oct 24, 2017 10:25 AM V16 TOBACCO USE SCREEN [place] Dec 25, 2016 01:31 PM V16 LIFETIME NON-TOBACCO USER [place] Dec 25, 2016 01:31 PM V16 TOBACCO USE SCREEN [place] Jan 03, 2016 08:51 AM V16 LIFETIME NON-TOBACCO USER [place] Jan 03, 2016 08:51 AM V16 TOBACCO USE SCREEN [place] Dec 27, 2014 04:28 PM V16 LIFETIME NON-TOBACCO USER [place] Dec 27, 2014 04:28 PM V16 TOBACCO USE SCREEN [place] Dec 29, 2013 03:57 PM V16 LIFETIME NON-TOBACCO USER [place] Dec 29, 2013 03:57 PM V16 TOBACCO USE SCREEN [place] Jun 24, 2012 12:25 PM V16 LIFETIME NON-TOBACCO USER [place] Jun 24, 2012 12:25 PM V16 TOBACCO USE SCREEN [place] Dec 18, 2010 01:24 PM V16 LIFETIME NON-TOBACCO USER [place] Dec 18, 2010 01:24 PM V16 TOBACCO USE SCREEN [place] Nov 30, 2009 01:24 PM V16 LIFETIME NON-TOBACCO USER [place] Nov 30, 2009 01:24 PM V16 TOBACCO USE SCREEN [place] Nov 25, 2008 01:22 PM V16 LIFETIME NON-TOBACCO USER [place] Nov 25, 2008 01:22 PM V16 TOBACCO USE SCREEN [place] Jan 08, 2008 12:49 PM V16 LIFETIME NON-TOBACCO USER [place] Jan 08, 2008 12:49 PM V16 TOBACCO USE SCREEN [place] Apr 28, 2007 01:53 PM V16 TOBACCO CESSATION >7 YEARS [place] Apr 28, 2007 01:53 PM V16 TOBACCO [...] in the last 15 m [facility], and 2) all medications recorded in the [...] FOR BLOOD PRESSURE 90 Sep 24, 2020 [id number] Apr 07, 2020 V KESHAWN VAUGHN [facility] ATENOLOL 50MG/CHLORTHALIDONE 25MG TAB Discontinued TA KE 1 TABLET BY MOUTH EVERY MORNING FOR BLOOD PRESSURE 90 Oct 17, 2019 [id number] Jul 26, 2019 V KESHAWN VAUGHN [facility] ATORVASTATIN CA 80MG TAB Active TAKE ONE-HALF T ABLET BY MOUTH AT BEDTIME FOR CHOLESTEROL - DO NOT TAKE WITH GRAPEFRUIT JUICE 45 Apr 11, 2021 [id number] Apr 10, 2020 KESHAWN SHERMAN [facility] ATORVASTATIN CA 80MG TAB Discontinued TAKE ONE-HALF T ABLET BY MOUTH AT BEDTIME FOR CHOLESTEROL - DO NOT TAKE WITH GRAPEFRUIT JUICE 45 Dec 23, 2019 [id number] Oct 14, 2019 KESHAWN SHERMAN [facility] CARBOXYMETHYLCELLULOSE NA 0.5% SOLN,OPH INSTILL ONE DROP IN EACH EYE FOUR TIMES DAILY Feb 10, 2020 [id number] Feb 09, 2019 [facility] CORONA [facility] CARBOXYMETHYLCELLULOSE NA 1% GEL,OPH INS TILL ONE DROP TO EACH EYE TWICE A DAY Feb 10, 2020 [id number] Feb 09, 2019 MAGEN CORONA [facility] CIPROFLOXACIN HCL 500MG TAB Active TAKE ONE TAB LET BY MOUTH TWICE A DAY - ANTIBIOTIC - TAKE UNTIL GONE *TAKE WITH FOOD AND AVOID TAKING WITH DAIRY OR PRODUCTS CONTAINING ALUMINUM, IRON, CALCIUM, OR MAGNESIUM* 14 J 2019 [id number] Apr 12, 2020 ALEXANDRA REYES [facility] FAMOTIDINE 40MG TAB Active TAKE ONE TABLET BY M OUTH ONCE DAILY FOR STOMACH/REFLUX 30 Apr 12, 2021 [id number] Apr 11, 2020 KESHAWN SHERMAN [facility] FAMOTIDINE 40MG TAB Discontinued TAKE ONE TABLET BY Nick DURAND ONCE DAILY FOR STOMACH/REFLUX 90 Sep 24, 2020 [id number] Dec 29, 2019 KESHAWN SHERMAN [facility] FLUTICASONE PROPIONATE 50MCG/SPRAY SOLN,NASAL,16GM Active USE 2 SPRAYS IN NOSE TWICE A DAY SHAKE GENTLY BEFORE USE Apr 11, 2021 [id number] J 2019 [facility] FLUT[facility] PROPIONATE 50MCG/SPRAY SOLN,NASAL,16GM Discontin ued USE 2 SPRAYS IN NOSE TWICE A DAY SHAKE GENTLY BEFORE USE Dec 23, 2019 [id number] Jul 26, 2019 KESHAWN SHERMAN [facility] IBUPROFEN 600MG TAB Non- VA TAKE ONE TABLET BY MOUTH THREE TIMES DAILY WITH MEALS NEEDED Non-VA Documented by: KESHAWN SHERMAN Docume nted at: [facility] [place] MAGNESIUM OXIDE 420MG TAB Active TAKE ONE TABLE T BY MOUTH TWICE A DAY TAKE WITH FOOD 100 Apr 11, 2021 [id number] Apr 10, 2020 [facility] MAGNESI[facility]IDE 420MG TAB Discontinued TAKE ONE TABLE T BY MOUTH TWICE A DAY TAKE WITH FOOD 100 Jan 14, 2020 [id number] Dec 29, 2019 KESHAWN SHERMAN [facility] OMEPRAZOLE 20MG CAP,EC Active TAKE 1 CAPSULE BY MOUTH ONCE DAILY FOR THE STOMACH 90 Dec 30, 2020 [id number] Apr 07, 2020 [facility] OMEPR[facility]LE 20MG CAP,EC Discontinued TAKE 1 CAPSULE BY MOUTH ONCE DAILY FOR THE STOMACH 90 Dec 23, 2019 [id number] Oct 14, 2019 KESHAWN SHERMAN [facility] POTASSIUM CHLORIDE 20MEQ TAB,SA (DISPERSIBLE) Active TAKE ONE TABLET BY MOUTH ONCE DAILY WITH FOOD 90 Dec 30, 2020 [id number] Apr 19, 2020 HAMLET SHERMAN [facility] POTASSIUM CHLORIDE 20MEQ TAB,SA (DISPERSIBLE) Discontinued TAKE ONE TABLET BY MOUTH ONCE DAILY WITH FOOD 90 Dec 23, 2019 [id number] Nov 11, 2019 KESHAWN JOHNSON [facility] RANITIDINE HCL 150MG TAB Discontinued TAKE TWO TABLET S BY MOUTH AT BEDTIME FOR STOMACH 180 Dec 23, 2019 [id number] Jul 26, 2019 KESHAWN SHERMAN [place] VENLAFAXINE HCL 37.5MG 24HR CAP,SA Active TAKE 3 CAPSULES BY MOUTH EVERY MORNING FOR MOOD 270 Apr 08, 2021 [id number] Apr 07, 2020 KENA RAGSDALE [place] [facility] VENLAFAXINE HCL 37.5MG 24HR CAP,SA Discontinued TAKE 3 CAPSULES BY MOUTH EVERY MORNING FOR MOOD 270 Jun 01, 2020 [id number] Dec 29, 2019 KENA RAGSDALE [facility] VENLAFAXINE HCL 75MG 24HR CAP,SA Discontinued TAKE ON E CAPSULE BY MOUTH EVERY MORNING FOR MOOD 90 Apr 13, 2020 [id number] Apr 13, 2019 KESHAWN SHERMAN [facility] Problems (Conditions): All historical and current Section [...] BARAJAS Chronic kidney disease stage 3 Active 742328159 KESHAWN SHERMAN Corneal epithelial dystrophy Active 039441136 [facility] Depression Active 34526759 KESHAWN SHERMAN [place] Gastroesophageal reflux disease (SNOMED CT 540567427) Active 2355 94606 Nov 30, 2009 Entered By: FRANCO HERNANDEZ Comment: hiatal herniaFeb 2009 Entered By: FRANCO HERNANDEZ Comment: schiatzski ringFeb 2010 Entered By: FRANCO HERNANDEZ Comment: omeprazole and Zantac.Jun 24, 2012 Entered By: FRANCO HERNANDEZ Comment: GERD KESHAWN SHERMAN H/O: surgery Active 906979659 Aug 21, 2012 Entered By: FRANCO HERNANDEZ [...] HERNANDEZ History of polyp of colon Active 069557359 February 24, 2009 Entered By: FRANCO HERNANDEZ Comment: next colonoscopy 2008 Entered By: FRANCO HERNANDEZ Comment: tubulovilousAug 21, 2012 Entered By: FRANCO HERNANDEZ Comment: AUG 20, 2012@14:08:51 Colonoscopy :Diverticulosis Aug 21, 2012 Entered By: FRANCO HERNANDEZ Comment: Repeat of Colonoscopy in 5 years 2017 Entered By: KESHAWN SHERMAN Comment: he refuses repeat colonoscopy KESHAWN SHERMAN Hyperlipidemia Active 82387329 KESHAWN SHERMAN Hypertension Active 26133859 KESHAWN SHERMAN Hypotonic bladder Active 298733247 Dec 28, 2014 Entered By: KESHAWN SHERMAN Comment: Inability to void, was seen March 2013 with catheter placedDec 28, 2014 Entered By: KESHAWN SHERMAN Comment: Now has permanent suprapubic catheterDec 28, 2014 Entered By: KESHAWN SHERMAN Comment: D/c terazosin KESHAWN SHERMAN Impaired glucose tolerance Active 4107509 Dec 31, 2013 Entered By: KESHAWN SHERMAN Comment: A1c 5.9% Dec Entered By: KESHAWN SHERMAN Comment: 5.9% December Entered By: KESHAWN SHERMAN Comment: A1c 5.9% December Entered By: KESHAWN SHERMAN Comment: a1c 6.3% December 2018 KESHAWN SHERMAN Lumbago Active 130761127 KESHAWN SHERMAN Monoclonal gammopathy of uncertain significance Active 670378784 KESHAWN SHERMAN Obesity Active 278.00 Nov 27, [...] Dec 25, 2017 PROV DAJA SAMPSON [facility] [place] Noncompliance, Medication Regimen [...] Has ADDENDA PATIENT NAME: MARGARET LI SSN: [id number] FUTURE APPOINTMENTS: Jan@13:00 JOP PSLiliane PSYCH MD 1 Mar@12:00 [facility] LAB NON FASTING Mar@13:30 FAV PC TM 1 PATIENT'S HOME PHONE: CALL TAKEN BY: TORRI REASON FOR CALL: PLEASE RETURN CALL TO PT ABOUT ANOTHER PAIR OF BROKEN GLASSES. TAHNKS. 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
--- OUTSIDE RECORDS SUMMARY | 2020-05-09 09:46 | XMS REPORT | Encounter Summary ---
Author Author Department [facility] MARGARET pereira Department [facility] Address [address] [place] [address] Phone Unavailable Care Team Providers Care Die Hardener Name Role Phone KESHAWN SHERMAN PCP Unavailable [...] PART A Aug 20, 2011 PART A [id number] 80A [phone] GUILLERMOMARGARET PATIENT MEDICARE (WNR) MEDICARE (M) PART B Aug 20, 2011 PART B [id number] 80A [phone] GUILLERMOMARGARET PATIENT MEDICARE (WNR) MEDICARE (M) PART A Aug 20, 2011 PART A [id number] 80A [phone] GUILLERMOMARGARET PATIENT MEDICARE (WNR) MEDICARE (M) PART B Aug 20, 2011 PART B [id number] 80A [phone] MARGARET LI PATIENT Selected Encounter This section includes the information on record at [place] for the Encounter. Date/Time Encounter Type Encounter Description Reason Provider Source Aug 31, 2019 02:30 PM Outpatient Encounter [facility] Encounter Template Text not used by [facility] Assessments - Encounter Diagnoses No Data Provided for This Section Plan of Treatment: Future Appointments (+ 6 months) and Future Tests (+/- 45 day s) The Plan of Treatment section includes future care activities for the patient fr om all [place] treatment facilities. This section includes future appointments and fu ture orders which are active, pending or scheduled. Future Appointments This section includes appointments that were scheduled t o occur 6 months from the date of the Encounter, up to a maximum of 20 appointme nts. The data comes from all [place] treatment facilities. Appointment Date/Time Appointment Type Appointment Facili ty Name Sep 21, 2019 02:30 PM AMBULATORY - PS[facility]IATRY [facility] Sep 21, 2019 02:35 PM [facility] Dec 17, 2019 02:00 PM [facility]UL[facility] MED[facility]INE [facility] Jan 11, 2020 11:30 AM [facility] Jan 11, 2020 01:00 PM AMBULATORY - MEDICINE [facility] Surgical Procedures: All associated to the encounter [...] Adverse Reactions (ADR s) on record with [place] for the patient. The data comes from a ll [place] treatment facilities. It does not list Allergies/ADRs that were removed or entered in error. Some allergies/ADRs may be reported in t he Immunization section. Allergen Event Date Event Type Reaction(s) Severity Source [place] Feb 07, 2000 Propensity to adverse reactions to drug (diso rder) UNIQUE [place] Medications: VA dispensed (-15 months) and Non-VA Documented (Obtained Outside [facility]) Section Date Range: 1) prescriptions processed by a VA pharmacy in the last 15 m [facility], and 2) all medications recorded in the [place] medical record as "non-VA medic ations". Pharmacy terms refer to [place] pharmacy's work on prescriptions. VA patient s are advised to take their medications as instructed by their health care team. The data comes from all [place] treatment facilities. Glossary of Pharmacy Terms:Active = A prescription that can be filled at the local [place] pharmacy.Active: On Hold = An active prescription that will not be filled until pharmacy resolves the issue.Active: Susp = An active prescription that is not scheduled to be filled yet.Clinic Order = A medication received during a visit to a [place] clinic or emergency department (currently not available).Discontinued = A prescription stopped by a [place] provider. It is no longer available to be filled. = A prescription which is too old to fill. This does not refer to the expiration date of the medication in the container. Non-VA = A medication that came from someplace other than a [place] pharmacy. This may be a prescription from either the [place] or other providers that was filled outside the [place]. Or, it may be an over the [...] FOR BLOOD PRESSURE 90 Sep 24, 2020 [id number] Apr 07, 2020 V KESHAWN VAUGHN [facility] ATENOLOL 50MG/CHLORTHALIDONE 25MG TAB Discontinued TA KE 1 TABLET BY MOUTH EVERY MORNING FOR BLOOD PRESSURE 90 Oct 17, 2019 [id number] Jul 26, 2019 V KESHAWN VAUGHN [facility] ATORVASTATIN CA 80MG TAB Active TAKE ONE-HALF T ABLET BY MOUTH AT BEDTIME FOR CHOLESTEROL - DO NOT TAKE WITH GRAPEFRUIT JUICE 45 Apr 11, 2021 [id number] Apr 10, 2020 KESHAWN SHERMAN [facility] ATORVASTATIN CA 80MG TAB Discontinued TAKE ONE-HALF T ABLET BY MOUTH AT BEDTIME FOR CHOLESTEROL - DO NOT TAKE WITH GRAPEFRUIT JUICE 45 Dec 23, 2019 [id number] Oct 14, 2019 KESHAWN SHERMAN [facility] CARBOXYMETHYLCELLULOSE NA 0.5% SOLN,OPH INSTILL ONE DROP IN EACH EYE FOUR TIMES DAILY 15 Feb 10, 2020 [id number] Feb 09, [address] [facility] CARBOXYMETHYLCELLULOSE NA 1% GEL,OPH INS TILL ONE DROP TO EACH EYE TWICE A DAY 15 Feb 10, 2020 [id number] Feb 09, 2019 MAGEN CORONA [facility] CIPROFLOXACIN HCL 500MG TAB Active TAKE ONE TAB LET BY MOUTH TWICE A DAY - ANTIBIOTIC - TAKE UNTIL GONE *TAKE WITH FOOD AND AVOID TAKING WITH DAIRY OR PRODUCTS CONTAINING ALUMINUM, IRON, CALCIUM, OR MAGNESIUM* 14 J 2019 [id number] Apr 12, 2020 ALEXANDRA REYES [facility] FAMOTIDINE 40MG TAB Active TAKE ONE TABLET BY M OUTH ONCE DAILY FOR STOMACH/REFLUX 30 Apr 12, 2021 [id number] Apr 11, 2020 KESHAWN SHERMAN [facility] FAMOTIDINE 40MG TAB Discontinued TAKE ONE TABLET BY M OUTH ONCE DAILY FOR STOMACH/REFLUX 90 Sep 24, 2020 [id number] Dec 29, 2019 KESHAWN SHERMAN [facility] FLUTICASONE PROPIONATE 50MCG/SPRAY SOLN,NASAL,16GM Active USE 2 SPRAYS IN NOSE TWICE A DAY SHAKE GENTLY BEFORE USE 3 Apr 11, 2021 [id number] J 2019 KESHAWN SHERMAN [facility] FLUTICASONE PROPIONATE 50MCG/SPRAY SOLN,NASAL,16GM Discontin ued USE 2 SPRAYS IN NOSE TWICE A DAY SHAKE GENTLY BEFORE USE 3 Dec 23, 2019 [id number] Jul 26, 2019 KESHAWN SHERMAN [facility] IBUPROFEN 600MG TAB Non- VA TAKE ONE TABLET BY MOUTH THREE TIMES DAILY WITH MEALS NEEDED Non-VA Documented by: KESHAWN SHERMAN Docume nted at: UNIQUE IN MAGNESIUM OXIDE 420MG TAB Active TAKE ONE TABLE T BY MOUTH TWICE A DAY TAKE WITH FOOD 100 Apr 11, 2021 [id number] Apr 10, 2020 KESHAWN SHERMAN [facility] MAGNESIUM OXIDE 420MG TAB Discontinued TAKE ONE TABLE T BY MOUTH TWICE A DAY TAKE WITH FOOD 100 Jan 14, 2020 [id number] Dec 29, 2019 KESHAWN SHERMAN [facility] OMEPRAZOLE 20MG CAP,EC Active TAKE 1 CAPSULE BY MOUTH ONCE DAILY FOR THE STOMACH 90 Dec 30, 2020 [id number] Apr 07, 2020 KESHAWN SHERMAN [facility] OMEPRAZOLE 20MG CAP,EC Discontinued TAKE 1 CAPSULE BY MOUTH ONCE DAILY FOR THE STOMACH 90 Dec 23, 2019 [id number] Oct 14, 2019 KESHAWN SHERMAN [facility] POTASSIUM CHLORIDE 20MEQ TAB,SA (DISPERSIBLE) Active TAKE ONE TABLET BY MOUTH ONCE DAILY WITH FOOD 90 Dec 30, 2020 [id number] Apr 19, 2020 HAMLET SHERMAN [facility] POTASSIUM CHLORIDE 20MEQ TAB,SA (DISPERSIBLE) Discontinued TAKE ONE TABLET BY MOUTH ONCE DAILY WITH FOOD 90 Dec 23, 2019 [id number] Nov 11, 2019 KESHAWN JOHNSON [facility] RANITIDINE HCL 150MG TAB Discontinued TAKE TWO TABLET S BY MOUTH AT BEDTIME FOR STOMACH 180 Dec 23, 2019 [id number] Jul 26, 2019 KESHAWN SHERMAN IN VENLAFAXINE HCL 37.5MG 24HR CAP,SA Active TAKE 3 CAPSULES BY MOUTH EVERY MORNING FOR MOOD 270 Apr 08, 2021 [id number] Apr 07, 2020 KENA GLASGOW [facility] VENLAFAXINE HCL 37.5MG 24HR CAP,SA Discontinued TAKE 3 CAPSULES BY MOUTH EVERY MORNING FOR MOOD 270 Jun 01, 2020 [id number] Dec 29, 2019 KENA GLASGOW [facility] VENLAFAXINE HCL 75MG 24HR CAP,SA Discontinued TAKE ON E CAPSULE BY MOUTH EVERY MORNING FOR MOOD 90 Apr 13, 2020 [id number] Apr 13, 2019 KESHAWN SHERMAN [facility] Problems (Conditions): All historical and current Section Date Range: From patient's date of to the date document was create d. This section includes a list of Problems (Conditions) know n to [place] for the patient. It includes both active and inacti ve problems (conditions). The data comes from all [place] treatment facilities. Problem Status Problem Code Date of Onset Date of Resolution Comm ent(s) Provider Source Allergic rhinitis * (ICD-9-CM 477.9) Active 477.9 STEPHEN BARAJAS Chronic kidney disease stage 3 Active 453012586 KESHAWN SHERMAN Corneal epithelial dystrophy Active 424464611 MAGEN MCWILLIAMS [facility] Depression Active 35002057 KESHAWN SHERMAN Gastroesophageal reflux disease (SNOMED CT 478669123) Active 7365 10278 Nov 30, 2009 Entered By: FRANCO HERNANDEZ Comment: hiatal herniaNov 30, 2009 Entered By: FRANCO HERNANDEZ Comment: schiatzski ringFeb 2010 Entered By: FRANCO HERNANDEZ Comment: omeprazole and Zantac.Jun 24, 2012 Entered By: FRANCO HERNANDEZ Comment: GERD KESHAWN SHERMAN H/O: surgery Active 533694345 Aug 21, 2012 Entered By: FRANCO HERNANDEZ [...] HERNANDEZ History of polyp of colon Active 279134628 February 24, 2009 Entered By: FRANCO HERNANDEZ Comment: next colonoscopy 2008 Entered By: FRANCO HERNANDEZ Comment: tubulovilousNov 2011 Entered By: FRANCO HERNANDEZ Comment: AUG 20, 2012@14:08:51 Colonoscopy :Diverticulosis Aug 21, 2012 Entered By: FRANCO HERNANDEZ Comment: Repeat of Colonoscopy in 5 years 2017 Entered By: KESHAWN SHERMAN Comment: he refuses repeat colonoscopy KESHAWN SHERMAN Hyperlipidemia Active 24950718 KESHAWN SHERMAN Hypertension Active 32217084 KESHAWN SHERMAN Hypotonic bladder Active 326472604 Dec 28, 2014 Entered By: KESHAWN SHERMAN Comment: Inability to void, was seen March 2013 with catheter placedDec 28, 2014 Entered By: KESHAWN SHERMAN Comment: Now has permanent suprapubic catheterDec 28, 2014 Entered By: KESHAWN SHERMAN Comment: D/c terazosin KESHAWN SHERMAN Impaired glucose tolerance Active 9285590 Dec 31, 2013 Entered By: KESHAWN SHERMAN Comment: A1c 5.9% Dec Entered By: KESHAWN SHERMAN Comment: 5.9% December Entered By: KESHAWN SHERMAN Comment: A1c 5.9% December Entered By: KESHAWN SHERMAN Comment: a1c 6.3% December 2018 KESHAWN SHERMAN Lumbago Active 991609291 KESHAWN SHERMAN Monoclonal gammopathy of uncertain significance Active 923359755 KESHAWN SHERMAN Obesity Active 278.00 Nov 27, [...] Dominguez no showed appt 08/31/19 with Kena Glagsow called no answer left vm sent letter and made tickler to f/u Author's phone extension: [phone] /marilyn/ BHAVNA OTERO [facility] Signed: 08/31/2019 15:07 09/01/2019 ADDENDUM STATUS: COMPLETED second attempt no answer left ct /neeta OTERO [facility] Signed: 09/01/2019 13:25 09/03/2019 ADDENDUM STATUS: COMPLETED third attempt no answer left ct /marilyn/ BHAVNA OTERO [facility] Signed: 09/03/2019 12:25 BHAVNA OTERO [facility]
--- OUTSIDE RECORDS SUMMARY | 2020-05-09 09:46 | XMS REPORT | Encounter Summary ---
Author Author Department [facility] MARGARET pereira Department of [facility] Address [address] [place] [address] Phone Unavailable Care Team Providers Care Ecotherapist Name Role Phone KESHAWN SHERMAN PCP Unavailable [...] PART A Aug 20, 2011 PART A [id number] 80A [phone] GUILLERMOMARGARET PATIENT MEDICARE (WNR) MEDICARE (M) PART B Aug 20, 2011 PART B [id number] 80A [phone] GUILLERMOMARGARET PATIENT MEDICARE (WNR) MEDICARE (M) PART A Aug 20, 2011 PART A [id number] 80A [phone] GUILLERMOMARGARET PATIENT MEDICARE (WNR) MEDICARE (M) PART B Aug 20, 2011 PART B [id number] 80A [phone] MARGARET LI PATIENT Selected Encounter This section [...] appointme nts. The data comes from all [place] treatment facilities. Appointment Date/Time Appointment Type Appointment Facili ty Name Dec 17, 2019 02:00 PM AMBULATORY - MEDICINE [facility] Jan 11, 2020 11:30 AM AMBUL[facility]ORY - MEDICINE [facility] Jan 11, 2020 01:00 PM AMBULATORY - [...] took place. Date/Time Smoking Status/Tobacco Use Comment [facility] Nov 03, 2018 09:51 AM VA-TOBACCO [...] Adverse Reactions (ADR s) on record with [place] for the patient. The data comes from a [facility] treatment facilities. It does not list [...] VA pharmacy in the last 15 m [facility], and 2) all medications recorded in the [place] medical record as "non-VA medic ations". Pharmacy terms refer to [place] pharmacy's work on prescriptions. VA patient s [...] FOR BLOOD PRESSURE 90 Sep 24, 2020 [id number] Apr 07, 2020 KESHAWN JOHNSON [facility] ATENOLOL 50MG/CHLORTHALIDONE 25MG TAB Discontinued TA KE 1 TABLET BY MOUTH EVERY MORNING FOR BLOOD PRESSURE 90 Oct 17, 2019 [id number] Jul 26, 2019 KESHAWN JOHNSON [facility] ATORVASTATIN CA 80MG TAB Active TAKE ONE-HALF T ABLET BY MOUTH AT BEDTIME FOR CHOLESTEROL - DO NOT TAKE WITH GRAPEFRUIT JUICE 45 Apr 11, 2021 [id number] Apr 10, 2020 KESHAWN SHERMAN [facility] ATORVASTATIN CA 80MG TAB Discontinued TAKE ONE-HALF T ABLET BY MOUTH AT BEDTIME FOR CHOLESTEROL - DO NOT TAKE WITH GRAPEFRUIT JUICE 45 Dec 23, 2019 [id number] Oct 14, 2019 KESHAWN SHERMAN [facility] CARBOXYMETHYLCELLULOSE NA 0.5% SOLN,OPH INSTILL ONE DROP IN EACH EYE FOUR TIMES DAILY 15 Feb 10, 2020 [id number] Feb 09, 2019 MAGEN [facility] CARBOXYMETHYLCELLULOSE NA 1% GEL,OPH INS TILL ONE DROP TO EACH EYE TWICE A DAY 15 Feb 10, 2020 [id number] Feb 09, 2019 MAGEN [facility] CIPROFLOXACIN HCL 500MG TAB Active TAKE ONE TAB LET BY MOUTH TWICE A DAY - ANTIBIOTIC - TAKE UNTIL GONE *TAKE WITH FOOD AND AVOID TAKING WITH DAIRY OR PRODUCTS CONTAINING ALUMINUM, IRON, CALCIUM, OR MAGNESIUM* 14 J 2019 [id number] Apr 12, 2020 ALEXANDRA REYES [facility] FAMOTIDINE 40MG TAB Active TAKE ONE TABLET BY M OUTH ONCE DAILY FOR STOMACH/REFLUX 30 Apr 12, 2021 [id number] Apr 11, 2020 KESHAWN SHERMAN [facility] FAMOTIDINE 40MG TAB Discontinued TAKE ONE TABLET BY M OUTH ONCE DAILY FOR STOMACH/REFLUX 90 Sep 24, 2020 [id number] Dec 29, 2019 KESHAWN SHERMAN [facility] FLUTICASONE PROPIONATE 50MCG/SPRAY SOLN,NASAL,16GM Active USE 2 SPRAYS IN NOSE TWICE A DAY SHAKE GENTLY BEFORE USE 3 Apr 11, 2021 [id number] J 2019 KESHAWN SHERMAN [facility] FLUTICASONE PROPIONATE 50MCG/SPRAY SOLN,NASAL,16GM Discontin ued USE 2 SPRAYS IN NOSE TWICE A DAY SHAKE GENTLY BEFORE USE 3 Dec 23, 2019 [id number] Jul 26, 2019 KESHAWN SHERMAN [facility] IBUPROFEN 600MG TAB Non- VA TAKE ONE TABLET BY MOUTH THREE TIMES DAILY WITH MEALS NEEDED Non-VA Documented by: KESHAWN SHERMAN Docume nted at: [facility]IQUE [place] MAGNESIUM OXIDE 420MG TAB Active TAKE ONE TABLE T BY MOUTH TWICE A DAY TAKE WITH FOOD 100 Apr 11, 2021 [id number] Apr 10, 2020 [facility] MAGNESIUM OXIDE 420MG TAB Discontinued TAKE ONE TABLE T BY MOUTH TWICE A DAY TAKE WITH FOOD 100 Jan 14, 2020 [id number] Dec 29, 2019 [facility] OMEPRAZOLE 20MG CAP,EC Active TAKE 1 CAPSULE BY MOUTH ONCE DAILY FOR THE STOMACH 90 Dec 30, 2020 [id number] Apr 07, 2020 [facility] O[facility] 20MG CAP,EC Discontinued TAKE 1 CAPSULE BY MOUTH ONCE DAILY FOR THE STOMACH 90 Dec 23, 2019 [id number] Oct 14, 2019 [facility] POTASSIUM CHLORIDE 20MEQ TAB,SA (DISPERSIBLE) Active TAKE ONE TABLET BY MOUTH ONCE DAILY WITH FOOD 90 Dec 30, 2020 [id number] Apr 19, 2020 HAMLET SHERMAN [facility] POTASSIUM CHLORIDE 20MEQ TAB,SA (DISPERSIBLE) Discontinued TAKE ONE TABLET BY MOUTH ONCE DAILY WITH FOOD 90 Dec 23, 2019 [id number] Nov 11, 2019 KESHAWN JOHNSON [facility] RANITIDINE HCL 150MG TAB Discontinued TAKE TWO TABLET S BY MOUTH AT BEDTIME FOR STOMACH 180 Dec 23, 2019 [id number] Jul 26, 2019 [facility] VENLAFAXINE HCL 37.5MG 24HR CAP,SA Active TAKE 3 CAPSULES BY MOUTH EVERY MORNING FOR MOOD 270 Apr 08, 2021 [id number] Apr 07, 2020 KENA RAGSDALE [facility] VENLAFAXINE HCL 37.5MG 24HR CAP,SA Discontinued TAKE 3 CAPSULES BY MOUTH EVERY MORNING FOR MOOD 270 Jun 01, 2020 [id number] Dec 29, 2019 KENA RAGSDALE [facility] VENLAFAXINE HCL 75MG 24HR CAP,SA Discontinued TAKE ON E CAPSULE BY MOUTH EVERY MORNING FOR MOOD 90 Apr 13, 2020 [id number] Apr 13, 2019 KESHAWN SHERMAN [facility] Problems (Conditions): All historical and current Section [...] BARAJAS Chronic kidney disease stage 3 Active 333705422 KESHAWN SHERMAN Corneal epithelial dystrophy Active 965892058 [facility] Depression Active 93233106 KESHAWN SHERMAN Gastroesophageal reflux disease (SNOMED CT 021433548) Active 2355 85330 Nov 30, 2009 Entered By: FRANCO HERNANDEZ Comment: hiatal herniaFeb 2009 Entered By: FRANCO HERNANDEZ Comment: schiatzski ringFeb 2010 Entered By: FRANCO HERNANDEZ Comment: omeprazole and Zantac.Jun 24, 2012 Entered By: FRANCO HERNANDEZ Comment: GERD KESHAWN SHERMAN H/O: surgery Active 716861023 Aug 21, 2012 Entered By: FRANCO HERNANDEZ [...] HERNANDEZ History of polyp of colon Active 988665375 February 24, 2009 Entered By: FRANCO HERNANDEZ Comment: next colonoscopy 2008 Entered By: FRANCO HERNANDEZ Comment: tubulovilousNov 2011 Entered By: FRANCO HERNANDEZ Comment: AUG 20, 2012@14:08:51 Colonoscopy :Diverticulosis Aug 21, 2012 Entered By: FRANCO HERNANDEZ Comment: Repeat of Colonoscopy in 5 years 2017 Entered By: KESHAWN SHERMAN Comment: he refuses repeat colonoscopy KESHAWN SHERMAN Hyperlipidemia Active 57964506 KESHAWN SHERMAN Hypertension Active 98959322 [facility] Hypotonic bladder Active 276898434 Dec 28, 2014 Entered By: KESHAWN SHERMAN Comment: Inability to void, was seen March 2013 with catheter placedDec 28, 2014 Entered By: KESHAWN SHERMAN Comment: Now has permanent suprapubic catheterDec 28, 2014 Entered By: KESHAWN SHERMAN Comment: D/c terazosin KESHAWN SHERMAN Impaired glucose tolerance Active 5808305 Dec 31, 2013 Entered By: KESHAWN SHERMAN Comment: A1c 5.9% Dec Entered By: KESHAWN SHERMAN Comment: 5.9% December Entered By: KESHAWN SHERMAN Comment: A1c 5.9% December Entered By: KESHAWN SHERMAN Comment: a1c 6.3% December 2018 KESHAWN SHERMAN Lumbago Active 611366089 KESHAWN SHERMAN Monoclonal gammopathy of uncertain significance Active 349494040 KESHAWN SHERMAN Obesity Active 278.00 Nov 27, [...] URGENCY: STATUS: COMPLETED ADMINISTRATIVE NOTE Has ADDENDA [place] called requesting renewal on medication below and [...] Dr. Sherman, please advise on RANITIdine replacement. /eneta RINCON RN, BSN, CRRN PRIMARY CARE REGISTERED NURSE-UNIQUE Signed: 09/24/2019 14:09 Receipt Acknowledged By: 09/24/2019 14:31 /marilyn/ KESHAWN VAUGHN MD PRIMARY CARE PHYSICIAN - UNIQUE 09/24/2019 ADDENDUM STATUS: COMPLETED order placed by provider /neeta RINCON RN, BSN, CRRN PRIMARY CARE REGISTERED NURSE-UNIQUE Signed: 09/24/2019 14:49 LAURA PALACIOS
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
--- OUTSIDE RECORDS SUMMARY | 2020-05-09 09:46 | XMS REPORT | Encounter Summary ---
Author Author Department [facility] MARGARET pereira Department of [facility] Address [address] [place] [address] Phone Unavailable Care Team Providers Care Die Equipment Operator Name Role Phone KESHAWN SHERMAN PCP Unavailable [...] PART A Aug 20, 2011 PART A [id number] 80A [phone] GUILLERMOMARGARET PATIENT MEDICARE (WNR) MEDICARE (M) PART B Aug 20, 2011 PART B [id number] 80A [phone] GUILLERMOMARGARET PATIENT MEDICARE (WNR) MEDICARE (M) PART A Aug 20, 2011 PART A [id number] 80A [phone] GUILLERMOMARGARET PATIENT MEDICARE (WNR) MEDICARE (M) PART B Aug 20, 2011 PART B [id number] 80A [phone] MARGARET LI PATIENT Selected Encounter This section includes the information on record at [place] for the Encounter. Date/Time Encounter Type Encounter Description Reason Provider Source Sep 21, 2019 02:30 PM Outpatient Encounter [facility] - IND ICD-10-CM F33.9 Major depressive disorder, recurrent, unspecified with Provider Comments: Depression ([facility] [id number]) MARQUIS RACHEL [facility] IHE Encounter Template Text not used by [place] Assessments - Encounter Diagnoses This section includes the primary and secondary diag noses documented for the Encounter. Date/Time Primary/Secondary Diagnosis Diagnosis Name Provider Source Sep 21, 2019 02:37 PM PRIMARY Major depressive disorder, recurrent, unspecified MARQUIS RACHEL [facility] Plan of Treatment: Future Appointments [...] appointme nts. The data comes from all [facility] facilities. Appointment Date/Time Appointment Type Appointment Facili ty Name Dec 17, 2019 02:00 PM AMBULATORY - MEDICINE [facility] Jan 11, 2020 11:30 AM AMBULATORY - MEDICINE [facility] Jan 11, 2020 01:00 PM AMBULATORY - MEDICINE [facility] Surgical Procedures: All associated to [...] Source Sep 21, 2019 02:36 PM 0 [facility] Sep 21, 2019 02:34 PM 98 F 81 /min 128/76 mm[Hg] 18 /min 99 % 0 254 lb 38 [facility] Immunizations: All administered on the [...] may be a prescription from either the [place] or other providers that was filled outside the [place]. Or, it may be an over the [...] FOR BLOOD PRESSURE 90 Sep 24, 2020 [id number] Apr 07, 2020 V KESHAWN VAU[facility]N [facility] ATENOLOL 50MG/CHLORTHALIDONE 25MG TAB Discontinued TA KE 1 TABLET BY MOUTH EVERY MORNING FOR BLOOD PRESSURE 90 Oct 17, 2019 [id number] Jul 26, 2019 V KESHAWN VAU[facility]N [facility] ATORVASTATIN CA 80MG TAB Active TAKE ONE-HALF T ABLET BY MOUTH AT BEDTIME FOR CHOLESTEROL - DO NOT TAKE WITH GRAPEFRUIT JUICE 45 Apr 11, 2021 [id number] Apr 10, 2020 [facility]HAWN SHERMAN [facility] ATORVASTATIN CA 80MG TAB Discontinued TAKE ONE-HALF T ABLET BY MOUTH AT BEDTIME FOR CHOLESTEROL - DO NOT TAKE WITH GRAPEFRUIT JUICE 45 Dec 23, 2019 [id number] Oct 14, 2019 [facility]WN SHERMAN [facility] CARBOXYMETHYLCELLULOSE NA 0.5% SOLN,OPH INSTILL ONE DROP IN EACH EYE FOUR TIMES DAILY 15 Feb 10, 2020 [id number] Feb 09, 2019 MAGEN [facility] CARBOXYMETHYLCELLULOSE NA 1% GEL,OPH INS TILL ONE DROP TO EACH EYE TWICE A DAY 15 Feb 10, 2020 [id number] Feb 09, 2019 MAGEN CORONA [facility] CIPROFLOXACIN HCL 500MG TAB Active TAKE ONE TAB LET BY MOUTH TWICE A DAY - ANTIBIOTIC - TAKE UNTIL GONE *TAKE WITH FOOD AND AVOID TAKING WITH DAIRY OR PRODUCTS CONTAINING ALUMINUM, IRON, CALCIUM, OR MAGNESIUM* 14 J 2019 [id number] Apr 12, 2020 ALEXANDRA REYES [facility] FAMOTIDINE 40MG TAB Active TAKE ONE TABLET BY M OUTH ONCE DAILY FOR STOMACH/REFLUX 30 Apr 12, 2021 [id number] Apr 11, 2020 KESHAWN SHERMAN [facility] FAMOTIDINE 40MG TAB Discontinued TAKE ONE TABLET BY M OUTH ONCE DAILY FOR STOMACH/REFLUX 90 Sep 24, 2020 [id number] Dec 29, 2019 [facility]HAWN SHERMAN [facility] FLUTICASONE PROPIONATE 50MCG/SPRAY SOLN,NASAL,16GM Active USE 2 SPRAYS IN NOSE TWICE A DAY SHAKE GENTLY BEFORE USE 3 Apr 11, 2021 [id number] J 2019 [facility]HAWN SHERMAN [facility] FLUTICASONE PROPIONATE 50MCG/SPRAY SOLN,NASAL,16GM Discontin ued USE 2 SPRAYS IN NOSE TWICE A DAY SHAKE GENTLY BEFORE USE 3 Dec 23, 2019 [id number] Jul 26, 2019 [facility]HAWN SHERMAN [facility] IBUPROFEN 600MG TAB Non- [facility] TAKE ONE TABLET BY MOUTH THREE TIMES DAILY WITH MEALS NEEDED Non-VA Documented by: KESHAWN SHERMAN nted at: [facility] MAGNESIUM OXIDE 420MG TAB Active TAKE ONE TABLE T BY MOUTH TWICE A DAY TAKE WITH FOOD 100 Apr 11, 2021 [id number] Apr 10, 2020 [facility]WN [facility]ER[facility] MAGNESIUM OXIDE 420MG TAB Discontinued TAKE ONE TABLE T BY MOUTH TWICE A DAY TAKE WITH FOOD 100 Jan 14, 2020 [id number] Dec 29, 2019 [facility] OME[facility]MG CAP,EC Active TAKE 1 CAPSULE BY MOUTH ONCE DAILY FOR THE STOMACH 90 Dec 30, 2020 [id number] Apr 07, 2020 [facility] OMEPR[facility]LE 20MG CAP,EC Discontinued TAKE 1 CAPSULE BY MOUTH ONCE DAILY FOR THE STOMACH 90 Dec 23, 2019 [id number] Oct 14, 2019 [facility]HAWN [facility]ERMAN [facility] POTASSIUM CHLORIDE 20MEQ TAB,SA (DISPERSIBLE) Active TAKE ONE TABLET BY MOUTH ONCE DAILY WITH FOOD 90 Dec 30, 2020 [id number] Apr 19, 2020 HAMLET SHERMAN [facility] POTASSIUM CHLORIDE 20MEQ TAB,SA (DISPERSIBLE) Discontinued TAKE ONE TABLET BY MOUTH ONCE DAILY WITH FOOD 90 Dec 23, 2019 [id number] Nov 11, 2019 K[facility]HAWN [facility]ON [facility] RANITIDINE HCL 150MG TAB Discontinued TAKE TWO TABLET S BY MOUTH AT BEDTIME FOR STOMACH 180 Dec 23, 2019 [id number] Jul 26, 2019 [facility] VENLAFAXINE [facility]CL 37.5MG 24HR CAP,SA Active TAKE 3 CAPSULES BY MOUTH EVERY MORNING FOR MOOD 270 Apr 08, 2021 [id number] Apr 07, 2020 [facility] VENLAFAXINE HCL 37.5MG 24HR CAP,SA Discontinued TAKE 3 CAPSULES BY MOUTH EVERY MORNING FOR MOOD 270 Jun 01, 2020 [id number] Dec 29, 2019 Z[facility]I GLASGOW [facility] VENLAFAXINE HCL 75MG 24HR CAP,SA Discontinued TAKE ON E CAPSULE BY MOUTH EVERY MORNING FOR MOOD 90 Apr 13, 2020 [id number] Apr 13, 2019 KESHAWN SHERMAN [facility] Problems (Conditions): All historical [...] BARAJAS Chronic kidney disease stage 3 Active 103981323 KESHAWN SHERMAN Corneal epithelial dystrophy Active 146023664 P [facility] Depression Active 93234446 KESHAWN SHERMAN Gastroesophageal reflux disease (SNOMED CT 557462070) Active 2355 71441 Nov 30, 2009 Entered By: FRANCO HERNANDEZ Comment: hiatal herniaNov 30, 2009 Entered By: FRANCO HERNANDEZ Comment: schiatzski ringFeb 2010 Entered By: FRANCO HERNANDEZ Comment: omeprazole and Zantac.Jun 24, 2012 Entered By: FRANCO HERNANDEZ Comment: GERD KESHAWN SHERMAN H/O: surgery Active 102085245 Aug 21, 2012 Entered By: FRANCO HERNANDEZ [...] HERNANDEZ History of polyp of colon Active 557262576 February 24, 2009 Entered By: FRANCO HERNANDEZ Comment: next colonoscopy 2008 Entered By: FRANCO HERNANDEZ Comment: tubulovilousNov 2011 Entered By: FRANCO HERNANDEZ Comment: AUG 20, 2012@14:08:51 Colonoscopy :Diverticulosis Aug 21, 2012 Entered By: FRANCO HERNANDEZ Comment: Repeat of Colonoscopy in 5 years 2017 Entered By: KESHAWN SHERMAN Comment: he refuses repeat colonoscopy KESHAWN SHERMAN Hyperlipidemia Active 03466438 KESHAWN SHERMAN Hypertension Active 95978203 [facility] 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 Dec 28, 2014 Entered By: KESHAWN SHERMAN Comment: Inability to void, was seen March 2013 with catheter placedDec 28, 2014 Entered By: KESHAWN SHERMAN Comment: Now has permanent suprapubic catheterDec 28, 2014 Entered By: KESHAWN SHERMAN Comment: D/c terazosin KESHAWN SHERMAN Impaired glucose tolerance Active 5975113 Dec 31, 2013 Entered By: KESHAWN SHERMAN Comment: A1c 5.9% Dec Entered By: KESHAWN SHERMAN Comment: 5.9% December Entered By: KESHAWN SHERMAN Comment: A1c 5.9% December Entered By: KESHAWN SHERMAN Comment: a1c 6.3% December 2018 KESHAWN SHERMAN Lumbago Active 652148936 KESHAWN SHREMAN Monoclonal gammopathy of uncertain significance Active 371754742 KESHAWN SHERMAN Obesity Active 278.00 Nov 27, [...] REGISTERED NURSE-LINDSEY Signed: 09/21/2019 14:37 MARQUIS RACHEL [facility]
--- OUTSIDE RECORDS SUMMARY | 2020-05-09 09:46 | XMS REPORT | Encounter Summary ---
Author Author Department of [facility] MARGARET pereira Department of [facility] Address [address] [place] [address] Phone Unavailable Care Team Providers Care Dolphin Trainer Name Role Phone KESHAWN SHERMAN PCP Unavailable [...] PART A Aug 20, 2011 PART A [id number] [phone] GUILLERMOMARGARET PATIENT MEDICARE (WNR) MEDICARE (M) PART B Aug 20, 2011 PART B [id number] [phone] GUILLERMOMARGARET PATIENT MEDICARE (WNR) MEDICARE (M) PART A Aug 20, 2011 PART A [id number] 80A [phone] GUILLERMOMARGARET PATIENT MEDICARE (WNR) MEDICARE (M) PART B Aug 20, 2011 PART B [id number] 80A [phone] MARGARET LI PATIENT Selected Encounter This section includes the information on record at [place] for the Encounter. Date/Time Encounter Type Encounter Description Reason Provider Source Sep 21, 2019 02:35 PM OFFICE[facility]OUTPATIENT [facility] ICD-10-CM F43.23 Adjustment disorder with mixed anxiety and depressed mood with Provider Comments: Adjustment Disorder with mixed Anxiety and depressed mood KENA RAGSDALE [facility] IHE Encounter Template Text not used by [facility] Assessments - Encounter Diagnoses This section includes the primary and secondary diag noses documented for the Encounter. Date/Time Primary/Secondary Diagnosis Diagnosis Name Provider Source Sep 21, 2019 02:49 PM PRIMARY Adjustment disorde r with mixed anxiety and depressed mood KENA RAGSDALEAlonso MONTILLA [facility] Plan of Treatment: Future Appointments (+ 6 months) and Future Tests (+/- 45 day s) The Plan of Treatment section includes future care activities for the patient fr om all [place] treatment facilities. This section includes future appointments and fu ture orders which are active, pending or scheduled. Future Appointments This section includes appointments that were scheduled t o occur 6 months from the date of the Encounter, up to a maximum of 20 appointme nts. The data comes from all [place] treatment facilities. Appointment Date/Time Appointment Type Appointment Facili ty Name Dec 17, 2019 02:00 PM AMBULATORY [facility] MEDICINE [facility] Jan 11, 2020 11:30 AM AMBULATORY - MEDICINE [facility] Jan 11, 2020 01:00 PM AMBULATORY - MEDICINE [facility] Surgical Procedures: All associated to the [...] patient. The data comes from a ll [place] treatment facilities. It does not list Allergies/ADRs that were removed or entered in error. Some allergies/ADRs may be reported in t Immunization section. Allergen Event Date Event Type Reaction(s) Severity Source [place] Feb 07, 2000 Propensity to adverse reactions to drug (diso rder) [facility] Medications: [facility] dispensed (-15 months) and Non-VA Documented (Obtained Outside V A) Section Date Range: 1) prescriptions processed by a [place] pharmacy in the last 15 m onths, and 2) all medications recorded in the [place] medical record as "non-VA medic ations". Pharmacy terms refer to [place] pharmacy's work on prescriptions. [facility] patient s are advised to take their medications as instructed by their health care team. The data comes from all [place] treatment facilities. Glossary of Pharmacy Terms:Active = A prescription that can be filled at the local [place] pharmacy.Active: On Hold = An active prescription that will not be filled until pharmacy resolves the issue.Active: Susp = An active prescription that is not scheduled to be filled yet.Clinic Order = A medication received during a visit to a [place] clinic or emergency department (currently not available).Discontinued [...] may be a prescription from either the [place] or other providers that was filled outside the [place]. Or, it may be an over the [...] FOR BLOOD PRESSURE 90 Sep 24, 2020 [id number] Apr 07, 2020 V KESHAWN VAUGHN [facility] ATENOLOL 50MG/CHLORTHALIDONE 25MG TAB Discontinued TA KE 1 TABLET BY MOUTH EVERY MORNING FOR BLOOD PRESSURE 90 Oct 17, 2019 [id number] Jul 26, 2019 V KESHAWN VAUGHN [facility] ATORVASTATIN CA 80MG TAB Active TAKE ONE-HALF T ABLET BY MOUTH AT BEDTIME FOR CHOLESTEROL - DO NOT TAKE WITH GRAPEFRUIT JUICE 45 Apr 11, 2021 [id number] Apr 10, 2020 KESHAWN SHERMAN [facility] ATORVASTATIN CA 80MG TAB Discontinued TAKE ONE-HALF T ABLET BY MOUTH AT BEDTIME FOR CHOLESTEROL - DO NOT TAKE WITH GRAPEFRUIT JUICE 45 Dec 23, 2019 [id number] Oct 14, 2019 KESHAWN SHERMAN [facility] CARBOXYMETHYLCELLULOSE NA 0.5% SOLN,OPH INSTILL ONE DROP IN EACH EYE FOUR TIMES DAILY 15 Feb 10, 2020 [id number] Feb 09, 2019 [facility] [place] [facility] CARBOXYMETHYLCELLULOSE NA 1% GEL,OPH INS TILL ONE DROP TO EACH EYE TWICE A DAY 15 Feb 10, 2020 [id number] Feb 09, [address] [facility] CIPROFLOXACIN HCL 500MG TAB Active TAKE ONE TAB LET BY MOUTH TWICE A DAY - ANTIBIOTIC - TAKE UNTIL GONE *TAKE WITH FOOD AND AVOID TAKING WITH DAIRY OR PRODUCTS CONTAINING ALUMINUM, IRON, CALCIUM, OR MAGNESIUM* 14 J 2019 [id number] Apr 12, 2020 ALEXANDRA REYES [facility] FAMOTIDINE 40MG TAB Active TAKE ONE TABLET BY M OUTH ONCE DAILY FOR STOMACH/REFLUX 30 Apr 12, 2021 [id number] Apr 11, 2020 KESHAWN SHERMAN [facility] FAMOTIDINE 40MG TAB Discontinued TAKE ONE TABLET BY M OUTH ONCE DAILY FOR STOMACH/REFLUX 90 Sep 24, 2020 [id number] Dec 29, 2019 KESHAWN SHERMAN [facility] FLUTICASONE PROPIONATE 50MCG/SPRAY SOLN,NASAL,16GM Active USE 2 SPRAYS IN NOSE TWICE A DAY SHAKE GENTLY BEFORE USE 3 Apr 11, 2021 [id number] J 2019 KESHAWN SHERMAN [facility] FLUTICASONE PROPIONATE 50MCG/SPRAY SOLN,NASAL,16GM Discontin ued USE 2 SPRAYS IN NOSE TWICE A DAY SHAKE GENTLY BEFORE USE 3 Dec 23, 2019 [id number] Jul 26, 2019 KESHAWN SHERMAN [facility] IBUPROFEN 600MG TAB Non- [facility] TAKE ONE TABLET BY MOUTH THREE TIMES DAILY WITH MEALS NEEDED Non-VA Documented by: KESHAWN SHERMAN Docume nted at: [facility] MAGNESIUM OXIDE 420MG TAB Active TAKE ONE TABLE T BY MOUTH TWICE A DAY TAKE WITH FOOD 100 Apr 11, 2021 [id number] Apr 10, 2020 KESHAWN SHERMAN [facility] MAGNESIUM OXIDE 420MG TAB Discontinued TAKE ONE TABLE T BY MOUTH TWICE A DAY TAKE WITH FOOD 100 Jan 14, 2020 [id number] Dec 29, 2019 KESHAWN SHERMAN [facility] OMEPRAZOLE 20MG CAP,EC Active TAKE 1 CAPSULE BY MOUTH ONCE DAILY FOR THE STOMACH 90 Dec 30, 2020 [id number] Apr 07, 2020 KESHAWN SHERMAN [facility] OMEPRAZOLE 20MG CAP,EC Discontinued TAKE 1 CAPSULE BY MOUTH ONCE DAILY FOR THE STOMACH 90 Dec 23, 2019 [id number] Oct 14, 2019 KESHAWN SHERMAN [facility] POTASSIUM CHLORIDE 20MEQ TAB,SA (DISPERSIBLE) Active TAKE ONE TABLET BY MOUTH ONCE DAILY WITH FOOD 90 Dec 30, 2020 [id number] Apr 19, 2020 HAMLET SHERMAN [facility] POTASSIUM CHLORIDE 20MEQ TAB,SA (DISPERSIBLE) Discontinued TAKE ONE TABLET BY MOUTH ONCE DAILY WITH FOOD 90 Dec 23, 2019 [id number] Nov 11, 2019 KESHAWN JOHNSON [facility] RANITIDINE HCL 150MG TAB Discontinued TAKE TWO TABLET S BY MOUTH AT BEDTIME FOR STOMACH 180 Dec 23, 2019 [id number] Jul 26, 2019 KESHAWN SHERMANFAVIAN [facility] VENLAFAXINE HCL 37.5MG 24HR CAP,SA Active TAKE 3 CAPSULES BY MOUTH EVERY MORNING FOR MOOD 270 Apr 08, 2021 [id number] Apr 07, 2020 KENA RAGSDALE [facility] VENLAFAXINE HCL 37.5MG 24HR CAP,SA Discontinued TAKE 3 CAPSULES BY MOUTH EVERY MORNING FOR MOOD 270 Jun 01, 2020 [id number] Dec 29, 2019 KENA RAGSDALE [facility] VENLAFAXINE HCL 75MG 24HR CAP,SA Discontinued TAKE ON E CAPSULE BY MOUTH EVERY MORNING FOR MOOD 90 Apr 13, 2020 [id number] Apr 13, 2019 KESHAWN SHERMAN [facility] Problems (Conditions): All historical and current Section Date Range: From patient's date of to the date document was create d. This section includes a list of Problems (Conditions) know n to [facility] for the patient. It includes both active and inacti ve problems (conditions). The data comes from all [place] treatment facilities. Problem Status Problem Code Date of Onset Date of Resolution Comm ent(s) Provider Source Allergic rhinitis * (ICD-9-CM 477.9) Active 477.9 STEPHEN BARAJAS Chronic kidney disease stage 3 Active 256818665 KESHAWN SHERMAN Corneal epithelial dystrophy Active [id number] [facility] Depression Active 25533430 KESHAWN SHERMAN Gastroesophageal reflux disease (SNOMED CT [id number]) Active 2355 42330 Nov 30, 2009 Entered By: FRANCO HERNANDEZ Comment: hiatal herniaFeb 2009 Entered By: FRANCO HERNANDEZ Comment: schiatzski ringFeb 2010 Entered By: FRANCO HERNANDEZ Comment: omeprazole and Zantac.Jun 24, 2012 Entered By: FRANCO HERNANDEZ Comment: GERD KESHAWN SHERMAN H/O: surgery Active 936630021 Aug 21, 2012 Entered By: FRANCO HERNANDEZ [...] HERNANDEZ History of polyp of colon Active 042301571 February 24, 2009 Entered By: FRANCO HERNANDEZ Comment: next colonoscopy 2008 Entered By: FRANCO HERNANDEZ Comment: tubulovilousNov 2011 Entered By: FRANCO HERNANDEZ Comment: AUG 20, 2012@14:08:51 Colonoscopy :Diverticulosis Aug 21, 2012 Entered By: FRANCO HERNANDEZ Comment: Repeat of Colonoscopy in 5 years 2017 Entered By: KESHAWN SHERMAN Comment: he refuses repeat colonoscopy KESHAWN SHERMAN Hyperlipidemia Active 97093156 KESHAWN SHERMAN Hypertension Active 63026401 KESHAWN SHERMAN [place]A [place] Hypotonic bladder Active 468621750 Dec 28, 2014 Entered By: KESHAWN SHERMAN Comment: Inability to void, was seen March 2013 with catheter placedDec 28, 2014 Entered By: KESHAWN SHERMAN Comment: Now has permanent suprapubic catheterDec 28, 2014 Entered By: KESHAWN SHERMAN Comment: D/c terazosin KESHAWN SHERMAN Impaired glucose tolerance Active 1542950 Dec 31, 2013 Entered By: KESHAWN SHERMAN Comment: A1c 5.9% Dec Entered By: KESHAWN SHERMAN Comment: 5.9% December Entered By: KESHAWN SHERMAN Comment: A1c 5.9% December Entered By: KESHAWN SHERMAN Comment: a1c 6.3% December 2018 KESHAWN SHERMAN Lumbago Active 989012272 KESHAWN SHERMAN Monoclonal gammopathy of uncertain significance Active 395347329 KESHAWN SHERMAN Obesity Active 278.00 Nov 27, [...] Inactive 4 55.0 Dec 25, 2017 FRANCO HERNADNEZ LUMBAGO/LOW BACK PAIN Inactive 724.2 Dec 25, [...] RAGSDALE APRN ADVANCED PRACTICE REGISTERED NURSE, PSYCHIATRY [facility] Signed: 09/21/2019 14:49 KENA RAGSDALE [facility] Sep 21, 2019 07:45 AM MENTAL HEALTH NOTE: LOCAL TITLE: [facility] INDIVIDUAL NOTE STANDARD TITLE: MENTAL HEALTH NOTE DATE OF NOTE: SEP 21, 2019@07:45 ENTRY DATE: SEP 21, 2019@07:45:56 AUTHOR: KENA RAGSDALE EXP COSIGNER: URGENCY: STATUS: COMPLETED Name: MARGARET LI Gender: MALE : 1945 Age:74 Marital Status: NEVER Address: [address] [place] [address] [facility] [address] R w Phone: NONE Service Connected %: LTC Co-Pay Status: NON EXEMPT Service Branch Service # Entered Discharge Service Branch Service # Entered Discharge [facility] [id number] AUG 21, 1965 SEP 11, 1967 HONORABLE (x )SCHEDULED APPOINTMENT Patient Identifiers: ( )WALK-IN [x] Name Margaret Li [x] # [id number] [ ] Start time: 1428 End time:1445 [...] Present Illness: is a 74 yo male, [facility]. "i'm okay" Had a good Thanksgiving. Went to [place] for community dinner. Brother and nephew went [...] 15. Gastroesophageal reflux disease (SNO MED CT [id number]) hiatal hernia schiatzski ring omeprazole and Zantac. GERD 16. Allergic rhinitis * (ICD-9-CM 477.9) DIAGNOSIS (DSM V) Adjustment disorder with anxiety and mood Assessment: [place] returns for follow up. takes Venlafaxine. 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 Given information R/T inpatient treatment and other emergent interventions available: Reviewed calling clinic at ext [phone] if problems or concerns. If suicidal , ext [phone]. Or National Suicide Hotline Patient verbalized understanding [...] common side effects to medications with the [place]. agrees to medication and agrees to call with any questions or concerns regarding medication. The [place] agrees to take the medication as prescribed. FOLLOW-UP: 4 months agrees to call with questions/c oncerns Supportive therapy and education given regarding medications and stressors. * PSYCHOTHERAPY TIME; FACE TO FACE: [x ] <16 min [ ] 16-37 min [ ] 38-52 min [ ] 53-89 min [ ] Other: /es/ KENA RAGSDALE APRN ADVANCED PRACTICE REGISTERED NURSE, [facility] Signed: 09/21/2019 14:48 KENA RAGSDALE [facility]
--- OUTSIDE RECORDS SUMMARY | 2020-05-09 09:46 | XMS REPORT | Encounter Summary ---
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 This section includes future appointments and fu ture orders which are active, pending or scheduled. Future Appointments This section includes appointments that were scheduled t o occur 6 months from the date of the Encounter, up to a maximum of 20 appointme nts. The data comes from all [facility]. Appointment Date/Time Appointment Type Appointment Facili ty Name Aug 31, 2019 02:30 PM AMBULATORY [facility] Aug 31, 2019 02:35 PM [facility] Sep 21, 2019 02:30 PM [facility] Sep 21, 2019 02:35 PM [facility] Dec 17, 2019 02:00 PM AMBULATORY - MEDICINE [facility] Surgical Procedures: All associated to the encounter No Data Provided for This Section Lab Results: +/- 30 days of the encounter This section includes the Chemistry and Hematology Lab R esults on record with PR for the patient. Radiology Reports and Pathology Report s are provided separately, in subsequent sections. Lab Results This section contains the Chemistry/Hematology Results ysabel t were resulted 30 days before or 30 days after the date of the Encounter. Date/Time Source Result Type Result - Unit Interpretation Reference Range Comment Jun 25, 2019 12:44 PM [facility] CBC Specimen Type: BLOOD Comment: See [...] Jun 25, 2019 12:44 PM [facility] DIFFERENTIAL Specimen Type: BLOOD Comment: See manual differential. SEGS 80 % H 36-66 LYMPHS 12 % L 19-53 MONOS 5 % 0-9 EOSINO 3 % 0-8 NORMOCYTIC Yes PLT (ESTM) ADEQ NL Jun 25, 2019 12:44 PM [facility] RENAL PROFILE Specimen Type: SERUM No [...] Jun 25, 2019 12:44 PM [facility] SERUM PEP(PRO. ELECTROPHO RSIS) Specimen Type: SERUM Comment: SPEP appears normal. No M spike seen. Reviewed by Alec Elias MD, [facility] ALPHA 1 GLOBULINS (G/DL) 0.2 g/dL 0.1-0 .4 ALPHA 2 GLOBULINS (G/DL) 0.8 g/dL 0.4-1 .0 BETA GLOBULINS (G/DL) 0.8 g/dL 0.5-1.1 GAMMA GLOBULINS (G/DL) 1.1 g/dL 0.5-1.7 P.E. TOTAL PROTEIN 6.8 g/dL 6.1-7.9 P.E. ALBUMIN 3.9 g/dL 3.2-5.1 M-SPIKE 0.0 g/dL NOT DETECTED Jun 25, 2019 12:44 PM [facility] KAPPA/LAMBDA LIGHT CHAINS , FREE, SERUM [...] and tobacco- related health factors from the PR facility where the Encounter took place. Current Smoking Status This section includes the most current smoking, or tobacco -related health factor, from the PR facility where the Encounter took place. Date/Time Current Smoking Status Comment Facility Nov 03, 2018 09:51 AM VA-TOBACCO NEVER USED [place] [facility] Tobacco Use History This section includes a history of the smoking, or tobacco -related health factors, that were collected on or before the date of the Encoun ter. The data comes from the PR facility where the Encounter took place. Date/Time Smoking Status/Tobacco Use Comment [facility] it Nov 03, 2018 09:51 AM VA-TOBACCO NEVER USED [place] [facility] [place] Oct 24, 2017 10:25 AM V16 LIFETIME NON-TOBACCO USER [place] Oct 24, 2017 10:25 AM V16 TOBACCO USE [place]CREEN [place] Dec 25, 2016 01:31 PM V16 LIFETIME NON-TOBACCO USER [place] Dec 25, 2016 01:31 PM V16 TOBACCO USE [place]CRE[place] Jan 03, 2016 08:51 AM V16 LIFETIME NON[place]TOBACCO USER [place] Jan 03, 2016 08:51 AM V16 TOBACCO USE [place]CRE[place] Dec 27, 2014 04:28 PM V16 LIFETIME NON-TOBACCO USER [place] Dec 27, 2014 04:28 PM V16 TOBACCO USE [place]CRE[place] Dec 29, 2013 03:57 PM V16 LIFETIME NON-TOBACCO USER [place] Dec 29, 2013 03:57 PM V16 TOBACCO USE [place]CRE[place] Jun 24, 2012 12:25 PM V16 LIFETIME NON-TOBACCO USER [place] Jun 24, 2012 12:25 PM V16 TOBACCO USE [place]CRE[place] Dec 18, 2010 01:24 PM V16 LIFETIME NON-TOBACCO USER [place] Dec 18, 2010 01:24 PM V16 TOBACCO USE [place]CREEN [place] Nov 30, 2009 01:24 PM V16 LIFETIME NON-TOBACCO USER [place] Nov 30, 2009 01:24 PM V16 TOBACCO USE [place]CREEN [place] Nov 25, 2008 01:22 PM V16 LIFETIME NON-TOBACCO USER [place] Nov 25, 2008 01:22 PM V16 TOBACCO USE [place]CREEN [place] Jan 08, 2008 12:49 PM V16 LIFETIME [...] Date Range: 1) prescriptions processed by a PR pharmacy in the last 15 m [facility], and 2) all medications recorded in the PR medical record as "non-VA medic ations". Pharmacy [...] may be a prescription from either the PR or other providers that was filled outside the [place]. Or, it may be an over the [...] FOR BLOOD PRESSURE 90 Sep 24, 2020 [id number] Apr 07, 2020 V KESHAWN VAUGHN [facility] ATENOLOL 50MG/CHLORTHALIDONE 25MG TAB Discontinued TA KE 1 TABLET BY MOUTH EVERY MORNING FOR BLOOD PRESSURE 90 Oct 17, 2019 [id number] Jul 26, 2019 V KESHAWN VAUGHN [facility] ATORVASTATIN CA 80MG TAB Active TAKE ONE-HALF T ABLET BY MOUTH AT BEDTIME FOR CHOLESTEROL - DO NOT TAKE WITH GRAPEFRUIT JUICE 45 Apr 11, 2021 [id number] Apr 10, 2020 KESHAWN SHERMAN [facility] ATORVASTATIN [place] 80MG TAB Discontinued TAKE ONE-HALF T ABLET BY MOUTH AT BEDTIME FOR CHOLESTEROL - DO NOT TAKE WITH GRAPEFRUIT JUICE 45 Dec 23, 2019 [id number] Oct 14, 2019 KESHAWN SHERMAN [facility] CARBOXYMETHYLCELLULOSE NA 0.5% SOLN,OPH INSTILL ONE DROP IN EACH EYE FOUR TIMES DAILY Feb 10, 2020 [id number] Feb 09, 2019 [facility] CARBOXYMETHYLCELLULOSE NA 1% GEL,OPH INS TILL ONE DROP TO EACH EYE TWICE A DAY Feb 10, 2020 [id number] Feb 09, 2019 [facility] CIPROFLOXACIN HCL 500MG TAB Active TAKE ONE TAB LET BY MOUTH TWICE A DAY - ANTIBIOTIC - TAKE UNTIL GONE *TAKE WITH FOOD AND AVOID TAKING WITH DAIRY OR PRODUCTS CONTAINING ALUMINUM, IRON, CALCIUM, OR MAGNESIUM* 14 J 2019 [id number] Apr 12, 2020 ALEXANDRA REYES [facility] FAMOTIDINE 40MG TAB Active TAKE ONE TABLET BY M OUTH ONCE DAILY FOR STOMACH/REFLUX 30 Apr 12, 2021 [id number] Apr 11, 2020 KESHAWN SHERMAN [facility] FAMOTIDINE 40MG TAB Discontinued TAKE ONE TABLET BY M OUTH ONCE DAILY FOR STOMACH/REFLUX 90 Sep 24, 2020 [id number] Dec 29, 2019 [facility] FLUTICASONE PROPIONATE 50MCG/SPRAY SOLN,NASAL,16GM Active USE 2 SPRAYS IN NOSE TWICE A DAY SHAKE GENTLY BEFORE USE 3 Apr 11, 2021 [id number] J 2019 [facility] by: KESHAWN SHERMAN Docume nted at: [facility] [place] MAGNESIUM OXIDE 420MG TAB Active TAKE ONE TABLE T BY MOUTH TWICE A DAY TAKE WITH FOOD 100 Apr 11, 2021 [id number] Apr 10, 2020 [facility] MAGNESI[facility] OXIDE 420MG TAB Discontinued TAKE ONE TABLE T BY MOUTH TWICE A DAY TAKE WITH FOOD 100 Jan 14, 2020 [id number] Dec 29, 2019 KESHAWN SHERMAN [facility] OMEPRAZOLE 20MG CAP,EC Active TAKE 1 CAPSULE BY MOUTH ONCE DAILY FOR THE STOMACH 90 Dec 30, 2020 [id number] Apr 07, 2020 KESHAWN SHERMAN [facility] OMEPRAZOLE 20MG CAP,EC Discontinued TAKE 1 CAPSULE BY MOUTH ONCE DAILY FOR THE STOMACH 90 Dec 23, 2019 [id number] Oct 14, 2019 KESHAWN SHERMAN [facility] POTASSIUM CHLORIDE 20MEQ TAB,SA (DISPERSIBLE) Active TAKE ONE TABLET BY MOUTH ONCE DAILY WITH FOOD 90 Dec 30, 2020 [id number] Apr 19, 2020 HAMLET SHERMAN [facility] POTASSIUM CHLORIDE 20MEQ TAB,SA (DISPERSIBLE) Discontinued TAKE ONE TABLET BY MOUTH ONCE DAILY WITH FOOD 90 Dec 23, 2019 [id number] Nov 11, 2019 KESHAWN JOHNSON [facility] RANITIDINE HCL 150MG TAB Discontinued TAKE TWO TABLET S BY MOUTH AT BEDTIME FOR STOMACH 180 Dec 23, 2019 [id number] Jul 26, 2019 KESHAWN SHERMAN [place] VENLAFAXINE HCL 37.5MG 24HR CAP,SA Active TAKE 3 CAPSULES BY MOUTH EVERY MORNING FOR MOOD 270 Apr 08, 2021 [id number] Apr 07, 2020 KENA RAGSDALE [facility] VENLAFAXINE HCL 37.5MG 24HR CAP,SA Discontinued TAKE 3 CAPSULES BY MOUTH EVERY MORNING FOR MOOD 270 Jun 01, 2020 [id number] Dec 29, 2019 [facility]AGSDALE [facility] VENLAFAXINE HCL 75MG 24HR CAP,SA Discontinued TAKE ON E CAPSULE BY MOUTH EVERY MORNING FOR MOOD 90 Apr 13, 2020 [id number] Apr 13, 2019 K[facility]WN SHERMAN [facility] [...] BARAJAS Chronic kidney disease stage 3 Active [id number] KESHAWN SHERMAN Corneal epithelial dystrophy Active 809808071 [facility] Depression Active 83245948 KESHAWN SHERMAN [place] Gastroesophageal reflux disease (SNOMED CT [id number]) Active 2355 08597 Nov 30, 2009 Entered By: FRANCO HERNANDEZ Comment: hiatal herniaFeb 2009 Entered By: FRANCO HERNANDEZ Comment: schiatzski ringFeb 2010 Entered By: FRANCO HERNANDEZ Comment: omeprazole and Zantac.Jun 24, 2012 Entered By: FRANCO HERNANDEZ Comment: GERD KESHAWN SHERMAN H/O: surgery Active 489263347 Aug 21, 2012 Entered By: FRANCO HERNANDEZ [...] HERNANDEZ History of polyp of colon Active 307439408 February 24, 2009 Entered By: FRANCO HERNANDEZ Comment: next colonoscopy 2008 Entered By: FRANCO HERNANDEZ Comment: tubulovilousAug 21, 2012 Entered By: FRANCO HERNANDEZ Comment: AUG 20, 2012@14:08:51 Colonoscopy :Diverticulosis Aug 21, 2012 Entered By: FRANCO HERNANDEZ Comment: Repeat of Colonoscopy in 5 years 2017 Entered By: KESHAWN SHERMAN Comment: he refuses repeat colonoscopy KESHAWN SHERMAN Hyperlipidemia Active 40006510 KESHAWN SHERMAN Hypertension Active 23604250 KESHAWN SHERMAN Hypotonic bladder Active 491777820 Dec 28, 2014 Entered By: KESHAWN SHERMAN Comment: Inability to void, was seen March 2013 with catheter placedDec 28, 2014 Entered By: KESHAWN SHERMAN Comment: Now has permanent suprapubic catheterDec 28, 2014 Entered By: KESHAWN SHERMAN Comment: D/c terazosin KESHAWN SHERMAN Impaired glucose tolerance Active 2668018 Dec 31, 2013 Entered By: KESHAWN SHERMAN Comment: A1c 5.9% Dec Entered By: KESHAWN SHERMAN Comment: 5.9% December Entered By: KESHAWN SHERMAN Comment: A1c 5.9% December Entered By: KESHAWN SHERMAN Comment: a1c 6.3% December 2018 KESHAWN SHERMAN Lumbago Active 209947695 KESHAWN SHERMAN Monoclonal gammopathy of uncertain significance Active 405961252 KESHAWN SHERMAN Obesity Active 278.00 Nov 27, [...] MICHELLE BOWENS EXP COSIGNER: URGENCY: STATUS: COMPLETED [facility] ([facility]) [address] [place] [id number] JUL 07, 2019 MARGARET LI Critical access hospital [address] [place] [address] [place] [address] Dear Wyl[place] Patient: I am writing to inform you of the results of the test(s) you had done during or shortly after your last visit at the [facility] [place]. The tests below were performed and are satisfactory unless otherwise noted. - Kidney Function - Other results: Test(s) performed: Immunoglobulin labs Comments: Renal and immunoglobulin labs are stable, normal spep. No change in treatment plan. Sincerely, MICHELLE BOWENS - LICENSED PRACTICAL NURSE MICHELLE BOWENS
--- OUTSIDE RECORDS SUMMARY | 2020-05-09 09:46 | XMS REPORT | Encounter Summary ---
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 This section includes future appointments and fu ture orders which are active, pending or scheduled. Future Appointments This section includes appointments that were scheduled t o occur 6 months from the date of the Encounter, up to a maximum of 20 appointme nts. The data comes from all [facility]. Appointment Date/Time Appointment Type Appointment Facili ty Name Dec 17, 2019 02:00 PM AMBULATORY - MEDICINE [facility] Jan 11, 2020 11:30 AM [facility] Jan 11, 2020 01:00 PM [facility] Mar 31, 2020 01:00 PM [place] [place] [facility] Apr 05, 2020 07:30 AM [place]ORY - NONE [place] [facility] Apr 05, 2020 08:30 AM AMBULATORY - NONE [facility] Apr 12, 2020 09:30 AM [facility] Surgical Procedures: All associated to the [...] Comment Facility Nov 03, 2018 09:51 AM CO-TOBACCO NEVER USED [place] [facility] Tobacco Use History This section includes a history of the smoking, or tobacco -related health factors, that were collected on or before the date of the Encoun ter. The data comes from the [place] facility where the Encounter took place. Date/Time Smoking Status/Tobacco Use Comment [facility] Nov 03, 2018 09:51 AM CO-TOBACCO NEVER USED [place] [facility] Oct 24, [...] Adverse Reactions (ADR s) on record with [place] for the patient. The data comes from [...] Date Range: 1) prescriptions processed by a [place] pharmacy in the last 15 m [facility], and 2) all medications recorded in the [place] medical record as "non-VA medic ations". Pharmacy terms refer to [place] pharmacy's work on prescriptions. [place] patient s are advised to take their [...] FOR BLOOD PRESSURE 90 Sep 24, 2020 [id number] Apr 07, 2020 KESHAWN JOHNSON [facility] ATENOLOL 50MG/CHLORTHALIDONE 25MG TAB Discontinued TA KE 1 TABLET BY MOUTH EVERY MORNING FOR BLOOD PRESSURE 90 Oct 17, 2019 [id number] Jul 26, 2019 KESHAWN JOHNSON [facility] ATORVASTATIN CA 80MG TAB Active TAKE ONE-HALF T ABLET BY MOUTH AT BEDTIME FOR CHOLESTEROL - DO NOT TAKE WITH GRAPEFRUIT JUICE 45 Apr 11, 2021 [id number] Apr 10, 2020 KESHAWN SHERMAN [facility] ATORVASTATIN CA 80MG TAB Discontinued TAKE ONE-HALF T ABLET BY MOUTH AT BEDTIME FOR CHOLESTEROL - DO NOT TAKE WITH GRAPEFRUIT JUICE 45 Dec 23, 2019 [id number] Oct 14, 2019 KESAHWN SHERMAN [facility] CARBOXYMETHYLCELLULOSE NA 0.5% SOLN,OPH INSTILL ONE DROP IN EACH EYE FOUR TIMES DAILY 15 Feb 10, 2020 [id number] Feb 09, 2019 MAGEN CORONA [facility] CARBOXYMETHYLCELLULOSE NA 1% GEL,OPH INS TILL ONE DROP TO EACH EYE TWICE A DAY 15 Feb 10, 2020 [id number] Feb 09, 2019 MAGEN COR[facility] CIPROFLOXACIN HCL 500MG TAB Active TAKE ONE TAB LET BY MOUTH TWICE A DAY - ANTIBIOTIC - TAKE UNTIL GONE *TAKE WITH FOOD AND AVOID TAKING WITH DAIRY OR PRODUCTS CONTAINING ALUMINUM, IRON, CALCIUM, OR MAGNESIUM* 14 J 2019 [id number] Apr 12, [address] [facility] FAMOTIDINE 40MG TAB Active TAKE ONE TABLET BY M OUTH ONCE DAILY FOR STOMACH/REFLUX 30 Apr 12, 2021 [id number] Apr 11, 2020 KESHAWN SHERMAN [facility] FAMOTIDINE 40MG TAB Discontinued TAKE ONE TABLET BY M OUTH ONCE DAILY FOR STOMACH/REFLUX 90 Sep 24, 2020 [id number] Dec 29, 2019 KESHAWN SHERMAN [facility] FLUTICASONE PROPIONATE 50MCG/SPRAY SOLN,NASAL,16GM Active USE 2 SPRAYS IN NOSE TWICE A DAY SHAKE GENTLY BEFORE USE 3 Apr 11, 2021 [id number] J 2019 KESHAWN SHERMAN [facility] FLUTICASONE PROPIONATE 50MCG/SPRAY SOLN,NASAL,16GM Discontin ued USE 2 SPRAYS IN NOSE TWICE A DAY SHAKE GENTLY BEFORE USE 3 Dec 23, 2019 [id number] Jul 26, 2019 KESHAWN SHERMAN [facility] IBUPROFEN 600MG TAB Non- VA TAKE ONE TABLET BY MOUTH THREE TIMES DAILY WITH MEALS NEEDED Non-VA Documented by: KESHAWN SHERMAN [facility] n[facility] [place] MAGNESIUM OXIDE 420MG TAB Active TAKE ONE TABLE T BY MOUTH TWICE A DAY TAKE WITH FOOD 100 Apr 11, 2021 [id number] Apr 10, 2020 [facility] MAGNES[facility] 420MG TAB Discontinued TAKE ONE TABLE T BY MOUTH TWICE A DAY TAKE WITH FOOD 100 Jan 14, 2020 [id number] Dec 29, 2019 KESHAWN SHERMAN [facility] OMEPRAZOLE 20MG CAP,EC Active TAKE 1 CAPSULE BY MOUTH ONCE DAILY FOR THE STOMACH 90 Dec 30, 2020 [id number] Apr 07, 2020 [facility] OMEPR[facility]LE 20MG CAP,EC Discontinued TAKE 1 CAPSULE BY MOUTH ONCE DAILY FOR THE STOMACH 90 Dec 23, 2019 [id number] Oct 14, 2019 KESHAWN SHERMAN [facility] POTASSIUM CHLORIDE 20MEQ TAB,SA (DISPERSIBLE) Active TAKE ONE TABLET BY MOUTH ONCE DAILY WITH FOOD 90 Dec 30, 2020 [id number] Apr 19, [address] [facility] POTASSIUM CHLORIDE 20MEQ TAB,SA (DISPERSIBLE) Discontinued TAKE ONE TABLET BY MOUTH ONCE DAILY WITH FOOD 90 Dec 23, 2019 [id number] Nov 11, 2019 KESHAWN JOHNSON [facility] RANITIDINE HCL 150MG TAB Discontinued TAKE TWO TABLET S BY MOUTH AT BEDTIME FOR STOMACH 180 Dec 23, 2019 [id number] Jul 26, 2019 KESHAWN SHERMAN [place] VENLAFAXINE HCL 37.5MG 24HR CAP,SA Active TAKE 3 CAPSULES BY MOUTH EVERY MORNING FOR MOOD 270 Apr 08, 2021 [id number] Apr 07, 2020 KENA RAGSDALE [facility] VENLAFAXINE HCL 37.5MG 24HR CAP,SA Discontinued TAKE 3 CAPSULES BY MOUTH EVERY MORNING FOR MOOD 270 Jun 01, 2020 [id number] Dec 29, 2019 [facility]NA [facility] VENLAFAXINE HCL 75MG 24HR CAP,SA Discontinued TAKE ON E CAPSULE BY MOUTH EVERY MORNING FOR MOOD 90 Apr 13, 2020 [id number] Apr 13, 2019 KESHAWN SHERMAN [facility] Problems (Conditions): All historical and current [...] BARAJAS Chronic kidney disease stage 3 Active [id number] KESHAWN SHERMAN Corneal epithelial dystrophy Active 321790087 [facility] Depression Active 34792274 KESHAWN SHERMAN Gastroesophageal reflux disease (SNOMED CT 773923021) Active 2357 24577 Nov 30, 2009 Entered By: FRANCO HERNANDEZ Comment: hiatal herniaNov 30, 2009 Entered By: FRANCO HERNANDEZ Comment: schiatzski ringFeb 2010 Entered By: FRANCO HERNANDEZ Comment: omeprazole and Zantac.Jun 24, 2012 Entered By: FRANCO HERNANDEZ Comment: GERD KESHAWN SHERMAN H/O: surgery Active 367895072 Aug 21, 2012 Entered By: FRANCO HERNANDEZ [...] HERNANDEZ History of polyp of colon Active 331468112 February 24, 2009 Entered By: FRANCO HERNANDEZ Comment: next colonoscopy 2008 Entered By: FRANCO HERNANDEZ Comment: tubulovilousNov 2011 Entered By: FRANCO HERNANDEZ Comment: AUG 20, 2012@14:08:51 Colonoscopy :Diverticulosis Aug 21, 2012 Entered By: FRANCO HERNANDEZ Comment: Repeat of Colonoscopy in 5 years 2017 Entered By: KESHAWN SHERMAN Comment: he refuses repeat colonoscopy KESHAWN SHERMAN Hyperlipidemia Active 26050354 KESHAWN SHERMAN Hypertension Active 18278336 KESHAWN SHERMAN Hypotonic bladder Active 973289439 Dec 28, 2014 Entered By: KESHAWN SHERMAN Comment: Inability to void, was seen March 2013 with catheter placedDec 28, 2014 Entered By: KESHAWN SHERMAN Comment: Now has permanent suprapubic catheterDec 28, 2014 Entered By: KESHAWN SHERMAN Comment: D/c terazosin KESHAWN SHERMAN Impaired glucose tolerance Active 8524264 Dec 31, 2013 Entered By: KESHAWN SHERMAN Comment: A1c 5.9% Dec Entered By: KESHAWN SHERMAN Comment: 5.9% December Entered By: KESHAWN SHERMAN Comment: A1c 5.9% December Entered By: KESHAWN SHERMAN Comment: a1c 6.3% December 2018 KESHAWN SHERMAN Lumbago Active 692057969 KESHAWN SHERMAN Monoclonal gammopathy of uncertain significance Active 637901687 KESHAWN SHERMAN Obesity Active 278.00 Nov 27, [...] complication Inactive 4 55.0 Dec 25, 2017 FRANOC HERNANDEZ LUMBAGO/LOW BACK PAIN Inactive 724.2 Dec [...] ENTRY DATE: OCT 23, 2019@11:04:47 AUTHOR: RICARDO BYOLE COSIGNER: URGENCY: STATUS: COMPLETED ADMINISTRATIVE NOTE Has ADDENDA Called [place] regarding transfer to [place]. No answer, left message for return call. Will mail scheduling letter and place pull for follow up. /[email or web address]/ RICARDO [facility] Signed: 10/23/2019 11:05 01/31/2020 ADDENDUM STATUS: COMPLETED No response to scheduling attempts. Will dispo appt and wait for [place] to contact clinic /neeta [facility] Signed: 01/31/2020 11:[address] [facility]
--- OUTSIDE RECORDS SUMMARY | 2020-05-09 09:47 | XMS REPORT | Encounter Summary ---
Author Author Department of [facility] MARGARET pereira Department of 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 Date/Time Encounter Type Encounter [...] activities for the patient fr om all [place] treatment facilities. This section includes future appointments and fu ture orders which are active, pending or scheduled. Future Appointments This section includes appointments that were scheduled t o occur 6 months from the date of the Encounter, up to a maximum of 20 appointme nts. The data comes from all [facility]. Appointment Date/Time Appointment Type Appointment Facili ty Name Aug 31, 2019 02:30 PM AMBULATORY - PS[facility]IATRY [facility] Aug 31, 2019 02:35 PM [facility] Sep 21, 2019 02:30 PM AM[facility]ULATORY PS[facility]RY [facility] Sep 21, 2019 02:35 PM AMBULATORY - PS[facility]CHIATRY [facility] Dec 17, 2019 02:00 PM AMBULATORY - MEDICINE [facility] Surgical Procedures: All associated to the encounter No Data Provided for This Section Lab Results: +/- 30 days of the encounter This section includes the Chemistry and Hematology Lab R esults on record with [place] for the patient. Radiology Reports and Pathology [...] spike seen. Reviewed by Alec Elias MD, [facility] 1 GLOBULINS (G/DL) 0.2 g/dL [...] and tobacco- related health factors from the [place] facility where the Encounter took place. Current Smoking Status This section includes the most current smoking, or tobacco -related health factor, from the [place] facility where the Encounter took place. Date/Time Current Smoking Status Comment Facility Nov 03, 2018 09:51 AM VA-TOBACCO NEVER USED [place] A R Tobacco Use History This section includes a history of the smoking, or tobacco -related health factors, that were collected on or before the date of the Encoun ter. The data comes from the [place] facility where the Encounter took place. Date/Time [...] patient. The data comes from a ll [place] treatment facilities. It does not list Allergies/ADRs [...] Date Range: 1) prescriptions processed by a [place] pharmacy in the last 15 m [facility], and 2) all medications recorded in the [place] medical record as "non-VA medic ations". Pharmacy terms refer to VA pharmacy's work on prescriptions. VA patient s are advised to take their medications as instructed by their health care team. The data comes from all [place] treatment facilities. Glossary of Pharmacy Terms:Active = A prescription that can be filled at the local [place] pharmacy.Active: On Hold = An active prescription that will not be filled until pharmacy resolves the issue.Active: Susp = An active prescription that is not scheduled to be filled yet.Clinic Order = A medication received during a visit to a [place] clinic or emergency department (currently not available).Discontinued [...] may be a prescription from either the [place] or other providers that was filled outside the [place]. Or, it may be an over the [...] FOR BLOOD PRESSURE 90 Sep 24, 2020 [id number] Apr 07, 2020 V KESHAWN VAUGHN [facility] ATENOLOL 50MG/CHLORTHALIDONE 25MG TAB Discontinued TA KE 1 TABLET BY MOUTH EVERY MORNING FOR BLOOD PRESSURE 90 Oct 17, 2019 [id number] Jul 26, 2019 V KESHAWN VAUGHN [facility] ATORVASTATIN CA 80MG TAB Active TAKE ONE-HALF T ABLET BY MOUTH AT BEDTIME FOR CHOLESTEROL - DO NOT TAKE WITH GRAPEFRUIT JUICE 45 Apr 11, 2021 [id number] Apr 10, 2020 KESHAWN SHERMAN [facility] ATORVASTATIN CA 80MG TAB Discontinued TAKE ONE-HALF T ABLET BY MOUTH AT BEDTIME FOR CHOLESTEROL - DO NOT TAKE WITH GRAPEFRUIT JUICE 45 Dec 23, 2019 [id number] Oct 14, 2019 KESHAWN SHERMAN [facility] CARBOXYMETHYLCELLULOSE NA 0.5% SOLN,OPH INSTILL ONE DROP IN EACH EYE FOUR TIMES DAILY Feb 10, 2020 [id number] Feb 09, 2019 [facility] CARBOXYMETHYLCELLULOSE NA 1% GEL,OPH INS TILL ONE DROP TO EACH EYE TWICE A DAY Feb 10, 2020 [id number] Feb 09, 2019 [facility] CIPROFLOXACIN HCL 500MG TAB Active TAKE ONE TAB LET BY MOUTH TWICE A DAY - ANTIBIOTIC - TAKE UNTIL GONE *TAKE WITH FOOD AND AVOID TAKING WITH DAIRY OR PRODUCTS CONTAINING ALUMINUM, IRON, CALCIUM, OR MAGNESIUM* 14 J 2019 [id number] Apr 12, 2020 ALEXANDRA REYES [facility] FAMOTIDINE 40MG TAB Active TAKE ONE TABLET BY M OUTH ONCE DAILY FOR STOMACH/REFLUX 30 Apr 12, 2021 [id number] Apr 11, 2020 KESHAWN SHERMAN [facility] FAMOTIDINE 40MG TAB Discontinued TAKE ONE TABLET BY M OUTH ONCE DAILY FOR STOMACH/REFLUX 90 Sep 24, 2020 [id number] Dec [facility], 2019 [facility] FLUTICASONE PROPIONATE 50MCG/SPRAY SOLN,NASAL,16GM Active USE 2 SPRAYS IN NOSE TWICE A DAY SHAKE GENTLY BEFORE USE 3 Apr 11, 2021 [id number] J 2019 KESHAWN SHERMAN [facility] FLUTICASONE PROPIONATE 50MCG/SPRAY SOLN,NASAL,16GM Discontin ued USE 2 SPRAYS IN NOSE TWICE A DAY SHAKE GENTLY BEFORE USE 3 Dec 23, 2019 [id number] Jul 26, 2019 KESHAWN SHERMAN [facility] IBUPROFEN 600MG TAB Non- [facility] TAKE ONE TABLET BY MOUTH THREE TIMES DAILY WITH MEALS NEEDED Non-VA Documented by: KESHAWN SHERMAN Docume nted at: [place] [place] MAGNESIUM OXIDE 420MG TAB Active TAKE ONE TABLE T BY MOUTH TWICE A DAY TAKE WITH FOOD 100 Apr 11, 2021 [id number] Apr 10, 2020 [facility] MAGNESIUM OXIDE 420MG TAB Discontinued TAKE ONE TABLE T BY MOUTH TWICE A DAY TAKE WITH FOOD 100 Jan 14, 2020 [id number] Dec 29, 2019 KESHAWN SHERMAN [facility] OMEPRAZOLE 20MG CAP,EC Active TAKE 1 CAPSULE BY MOUTH ONCE DAILY FOR THE STOMACH 90 Dec 30, 2020 [id number] Apr 07, 2020 KESHAWN SHERMAN [facility] OMEPRAZOLE 20MG CAP,EC Discontinued TAKE 1 CAPSULE BY MOUTH ONCE DAILY FOR THE STOMACH 90 Dec 23, 2019 [id number] Oct 14, 2019 KESHAWN SHERMAN [facility] POTASSIUM CHLORIDE 20MEQ TAB,SA (DISPERSIBLE) Active TAKE ONE TABLET BY MOUTH ONCE DAILY WITH FOOD 90 Dec 30, 2020 [id number] Apr 19, 2020 HAMLET SHERMAN [facility] POTASSIUM CHLORIDE 20MEQ TAB,SA (DISPERSIBLE) Discontinued TAKE ONE TABLET BY MOUTH ONCE DAILY WITH FOOD 90 Dec 23, 2019 [id number] Nov 11, 2019 KESHAWN JOHNSON [facility] RANITIDINE HCL 150MG TAB Discontinued TAKE TWO TABLET S BY MOUTH AT BEDTIME FOR STOMACH 180 Dec 23, 2019 [id number] Jul 26, 2019 KESHAWN SHERMAN [place] VENLAFAXINE HCL 37.5MG 24HR CAP,SA Active TAKE 3 CAPSULES BY MOUTH EVERY MORNING FOR MOOD 270 Apr 08, 2021 [id number] Apr 07, 2020 KENA RAGSDALE [facility] VENLAFAXINE HCL 37.5MG 24HR CAP,SA Discontinued TAKE 3 CAPSULES BY MOUTH EVERY MORNING FOR MOOD 270 Jun 01, 2020 [id number] Dec 29, 2019 [facility] VENLAFAXINE HCL 75MG 24HR CAP,SA Discontinued TAKE ON E CAPSULE BY MOUTH EVERY MORNING FOR MOOD 90 Apr 13, 2020 [id number] Apr 13, 2019 KESHAWN SHERMAN [facility] Problems (Conditions): All historical and current Section Date Range: From patient's date of to the date document was create d. This section includes a list of Problems (Conditions) know n to [facility] for the patient. It includes both active and inacti ve problems (conditions). The data comes from all [place] treatment facilities. 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 [facility] Depression Active 37710039 [place]ESHAWN SHERMAN [place] Gastroesophageal reflux disease (SNOMED CT [id number]) Active [id number] Nov 30, 2009 Entered By: FRANCO HERNANDEZ Comment: hiatal herniaFeb 2009 Entered By: FRANCO HERNANDEZ Comment: schiatzski ringFeb 2010 Entered By: FRANCO HERNANDEZ Comment: omeprazole and Zantac.Jun 24, 2012 Entered By: FRANCO HERNANDEZ Comment: GERD KESHAWN SHERMAN H/O: surgery Active [id number] Aug 21, 2012 Entered By: FRANCO HERNANDEZ [...] HERNANDEZ History of polyp of colon Active [id number] February 24, 2009 Entered By: FRANCO HERNANDEZ Comment: next colonoscopy 2008 Entered By: FRANCO HERNANDEZ Comment: tubulovilousAug 21, 2012 Entered By: FRANCO HERNANDEZ Comment: AUG 20, 2012@14:08:51 Colonoscopy :Diverticulosis Aug 21, 2012 Entered By: FRANCO HERNANDEZ Comment: Repeat of Colonoscopy in 5 years 2017 Entered By: KESHAWN SHERMAN Comment: he refuses repeat colonoscopy KESHAWN SHERMAN Hyperlipidemia Active 74409847 KESHAWN SHERMAN Hypertension Active 24496880 KESHAWN SHERMAN Hypotonic bladder Active 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 Dec 28, 2014 Entered By: KESHAWN SHERMAN Comment: Inability to void, was seen March 2013 with catheter placedDec 28, 2014 Entered By: KESHAWN SHERMAN Comment: Now has permanent suprapubic catheterDec 28, 2014 Entered By: KESHAWN SHERMAN Comment: D/c terazosin KESHAWN SHERMAN Impaired glucose tolerance Active 9523611 Dec 31, 2013 Entered By: KESHAWN SHERMAN Comment: A1c 5.9% Dec Entered By: KESHAWN SHERMAN Comment: 5.9% December Entered By: KESHAWN SHERMAN Comment: A1c 5.9% December Entered By: KESHAWN SHERMAN Comment: a1c 6.3% December 2018 KESHAWN SHERMAN Lumbago Active 185170669 KESHAWN SHERMAN Monoclonal gammopathy of uncertain significance Active 369350633 KESHAWN SHERMAN Obesity Active 278.00 Nov 27, [...] adv ise . /marilyn/ MICHELLE BOWENS LPN REGIONAL DIRECTOR OF ADMISSIONS, Primary Care Signed: 07/05/2019 16:22 Receipt Acknowledged [...]
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
--- OUTSIDE RECORDS SUMMARY | 2020-05-09 09:47 | XMS REPORT | Encounter Summary ---
Author Author Department of [facility] MARGARET pereira Department of [facility] Address [address] [place] [address] Phone Unavailable Care Team Providers [employer] Psychometrist Name Role Phone KESHAWN SHERMAN PCP Unavailable [...] PART A Aug 20, 2011 PART A [id number] [phone] GUILLERMOMARGARET PATIENT MEDICARE (WNR) MEDICARE (M) PART B Aug 20, 2011 PART B [id number] [phone] GUILLERMOMARGARET PATIENT MEDICARE (WNR) MEDICARE (M) PART A Aug 20, 2011 PART A [id number] [phone] MARGARET LI PATIENT MEDICARE (WNR) MEDICARE (M) PART B Aug 20, 2011 PART B [id number] [phone] MARGARET LI PATIENT Selected Encounter This section includes the information on record at [place] for the Encounter. Date/Time Encounter Type Encounter [...] activities for the patient fr om all [place] treatment facilities. This section includes future appointments and fu ture orders which are active, pending or scheduled. Future Appointments This section includes appointments that were scheduled t o occur 6 months from the date of the Encounter, up to a maximum of 20 appointme nts. The data comes from all [facility]. Appointment Date/Time Appointment Type Appointment Facili ty Name Jun 25, 2019 11:00 AM [facility]ORY [facility] Jun 25, 2019 02:00 PM AMBULATORY - MEDICINE [facility] Jun 28, 2019 02:15 PM AMBULATORY - MEDICINE [facility] Jun 30, 2019 02:15 PM AMBULATORY - MEDICINE [facility] Jul 05, 2019 02:15 PM AMBULATORY - MEDICINE [facility] Aug 31, 2019 02:30 PM AMBULATORY - PSYCHIATRY [facility] Aug 31, 2019 02:35 PM AMBULATORY - PSYCHIATRY [facility] Sep 21, 2019 02:30 PM AMBULATORY - PSYCHIATRY [facility] Sep 21, 2019 02:35 PM AMBULATORY - PSYCHIATRY [facility] Surgical Procedures: All associated to the encounter No Data Provided for This Section Lab Results: +/- 30 days of the encounter This section includes the Chemistry and Hematology Lab R esults on record with [place] for the patient. Radiology Reports and Pathology Report s are provided separately, in subsequent sections. Lab Results This section contains the Chemistry/Hematology Results ysabel t were resulted 30 days before or 30 days after the date of the Encounter. Date/Time Source Result Type Result - Unit Interpretation Reference Range Comment Jun 25, 2019 12:44 PM [facility] CBC Specimen Type: BLOOD Comment: See [...] g/dL 32-36 Jun 25, 2019 12:44 PM [facility] DIFFERENTIAL Specimen Type: BLOOD Comment: See manual differential. SEGS 80 % H 36-66 LYMPHS 12 % L 19-53 MONOS 5 % 0-9 EOSINO 3 % 0-8 NORMOCYTIC Yes PLT (ESTM) ADEQ NL Jun 25, 2019 12:44 PM [facility] RENAL PROFILE Specimen Type: SERUM No comment entered. GLUCOSE (FV) 119 mg/dL H 70-110 CHLORIDE (FV) 96 mmol/L L 98-107 SODIUM (FV) 130 mmol/L L 136-145 POTASSIUM (FV) 4.0 mmol/L 3.5-5.1 CO2 (FV) 24 mmol/L 21-32 UREA NITROGEN (FV) 22 mg/dL H 6-20 CALCIUM (FV) 8.6 mg/dL L 8.9-10.3 eGFR 49 CREATININE (FV) 1.43 mg/dL H .61-1.24 Jun 25, 2019 12:44 PM [facility] SERUM PEP(PRO. ELECTROPHO RSIS) Specimen Type: [...] NOT DETECTED Jun 25, 2019 12:44 PM [facility] [place]PA/[place]AM[place] L[place]AINS , FREE, SERUM [...] and tobacco- related health factors from the [place] facility where the Encounter took place. Current Smoking Status This section includes the most current smoking, or tobacco -related health factor, from the [place] facility where the Encounter took place. Date/Time Current Smoking Status Comment Facility Nov 03, 2018 09:51 AM VA-TOBACCO NEVER USED [place] Tobacco Use History This section includes a history of the smoking, or tobacco -related health factors, that were collected on or before the date of the Encoun ter. The data comes from the [place] facility where the Encounter took place. Date/Time Smoking Status/Tobacco Use Comment [facility] it Nov 03, 2018 09:51 AM VA-TOBACCO NEVER USED [place] [facility] [place] Oct 24, 2017 10:25 AM V16 LIFETIME NON-TOBACCO USER [place] Oct 24, 2017 10:25 AM V16 TOBACCO USE [place]CREEN [place] Dec 25, 2016 01:31 PM V16 LIFETIME NON-TOBACCO USER [place] Dec 25, 2016 01:31 PM V16 TOBACCO USE SCREEN [place] Jan 03, 2016 08:51 AM V16 LIFETIME NON-TOBACCO USER [place] Jan 03, 2016 08:51 AM V16 TOBACCO USE SCREEN [place] Dec 27, 2014 04:28 PM V16 LIFETIME NON-TOBACCO USER [place] Dec 27, 2014 04:28 PM V16 TOBACCO USE SCREEN [place] Dec 29, 2013 03:57 PM V16 LIFETIME NON-TOBACCO USER [place] Dec 29, 2013 03:57 PM V16 TOBACCO USE SCREEN [place] Jun 24, 2012 12:25 PM V16 LIFETIME NON-TOBACCO USER [place] Jun 24, 2012 12:25 PM V16 TOBACCO USE SCREEN [place] Dec 18, 2010 01:24 PM V16 LIFETIME NON-TOBACCO USER [place] Dec 18, 2010 01:24 PM V16 TOBACCO USE SCREEN [place] Nov 30, 2009 01:24 PM V16 LIFETIME NON-TOBACCO USER [place] Nov 30, 2009 01:24 PM V16 TOBACCO [...] patient. The data comes from a ll [place] treatment facilities. It does not list Allergies/ADRs [...] in the last 15 m [facility], and 2) all medications recorded in the [place] medical record as "non-VA medic ations". Pharmacy terms refer to VA pharmacy's work on prescriptions. VA patient s are advised to take their medications as instructed by their health care team. The data comes from all [place] treatment facilities. Glossary of Pharmacy Terms:Active = A prescription that can be filled at the local [place] pharmacy.Active: On Hold = An active prescription that will not be filled until pharmacy resolves the issue.Active: Susp = An active prescription that is not scheduled to be filled yet.Clinic Order = A medication received during a visit to a [place] clinic or emergency department (currently not available).Discontinued = A prescription stopped by a VA provider. It is no longer available to be filled. = A prescription which is too old to fill. This does not refer to the expiration date of the medication in the container. Non-VA = A medication that came from someplace other than a [place] pharmacy. This may be a prescription from either the [place] or other providers that was filled outside the [place]. Or, it may be an over the [...] FOR BLOOD PRESSURE 90 Sep 24, 2020 [id number] Apr 07, 2020 V KESHAWN VAUGHN [facility] ATENOLOL 50MG/CHLORTHALIDONE 25MG TAB Discontinued TA KE 1 TABLET BY MOUTH EVERY MORNING FOR BLOOD PRESSURE 90 Oct 17, 2019 [id number] Jul 26, 2019 V KESHAWN VAUGHN [facility] ATORVASTATIN CA 80MG TAB Active TAKE ONE-HALF T ABLET BY MOUTH AT BEDTIME FOR CHOLESTEROL - DO NOT TAKE WITH GRAPEFRUIT JUICE 45 Apr 11, 2021 [id number] Apr 10, 2020 KESHAWN SHERMAN [facility] ATORVASTATIN CA 80MG TAB Discontinued TAKE ONE-HALF T ABLET BY MOUTH AT BEDTIME FOR CHOLESTEROL - DO NOT TAKE WITH GRAPEFRUIT JUICE 45 Dec 23, 2019 [id number] Oct 14, 2019 KESHAWN SHERMAN [facility] CARBOXYMETHYLCELLULOSE NA 0.5% SOLN,OPH INSTILL ONE DROP IN EACH EYE FOUR TIMES DAILY Feb 10, 2020 [id number] Feb 09, 2019 [facility] CARBOXYMETHYLCELLULOSE NA 1% GEL,OPH INS TILL ONE DROP TO EACH EYE TWICE A DAY 15 Feb 10, 2020 [id number] Feb 09, 2019 [facility] CIPROFLOXACIN HCL 500MG TAB Active TAKE ONE TAB LET BY MOUTH TWICE A DAY - ANTIBIOTIC - TAKE UNTIL GONE *TAKE WITH FOOD AND AVOID TAKING WITH DAIRY OR PRODUCTS CONTAINING ALUMINUM, IRON, CALCIUM, OR MAGNESIUM* 14 J 2019 [id number] Apr 12, 2020 ALEXANDRA REYES [facility] FAMOTIDINE 40MG TAB Active TAKE ONE TABLET BY M OUTH ONCE DAILY FOR STOMACH/REFLUX 30 Apr 12, 2021 [id number] Apr 11, 2020 KESHAWN SHERMAN [facility] FAMOTIDINE 40MG TAB Discontinued TAKE ONE TABLET BY M OUTH ONCE DAILY FOR STOMACH/REFLUX 90 Sep 24, 2020 [id number] Dec 29, 2019 KESHAWN SHERMAN [facility] FLUTICASONE PROPIONATE 50MCG/SPRAY SOLN,NASAL,16GM Active USE 2 SPRAYS IN NOSE TWICE A DAY SHAKE GENTLY BEFORE USE 3 Apr 11, 2021 [id number] J 2019 [facility] by: KESHAWN SHERMAN Docume nted at: [place] MAGNESIUM OXIDE 420MG TAB Active TAKE ONE TABLE T BY MOUTH TWICE A DAY TAKE WITH FOOD 100 Apr 11, 2021 [id number] Apr 10, 2020 KESHAWN SHERMAN [facility] MAGNESIUM OXIDE 420MG TAB Discontinued TAKE ONE TABLE T BY MOUTH TWICE A DAY TAKE WITH FOOD 100 Jan 14, 2020 [id number] Dec 29, 2019 KESHAWN SHERMAN [facility] OMEPRAZOLE 20MG CAP,EC Active TAKE 1 CAPSULE BY MOUTH ONCE DAILY FOR THE STOMACH 90 Dec 30, 2020 [id number] Apr 07, 2020 KESHAWN SHERMAN [facility] OMEPRAZOLE 20MG CAP,EC Discontinued TAKE 1 CAPSULE BY MOUTH ONCE DAILY FOR THE STOMACH 90 Dec 23, 2019 [id number] Oct 14, 2019 KESHAWN SHERMAN [facility] POTASSIUM CHLORIDE 20MEQ TAB,SA (DISPERSIBLE) Active TAKE ONE TABLET BY MOUTH ONCE DAILY WITH FOOD 90 Dec 30, 2020 [id number] Apr 19, 2020 HAMLET SHERMAN [facility] POTASSIUM CHLORIDE 20MEQ TAB,SA (DISPERSIBLE) Discontinued TAKE ONE TABLET BY MOUTH ONCE DAILY WITH FOOD 90 Dec 23, 2019 [id number] Nov 11, 2019 KESHAWN JOHNSON [facility] RANITIDINE HCL 150MG TAB Discontinued TAKE TWO TABLET S BY MOUTH AT BEDTIME FOR STOMACH 180 Dec 23, 2019 [id number] Jul 26, 2019 KESHAWN SHERMAN [place] VENLAFAXINE HCL 37.5MG 24HR CAP,SA Active TAKE 3 CAPSULES BY MOUTH EVERY MORNING FOR MOOD 270 Apr 08, 2021 [id number] Apr 07, 2020 KENA RAGSDALE [facility] VENLAFAXINE HCL 37.5MG 24HR CAP,SA Discontinued TAKE 3 CAPSULES BY MOUTH EVERY MORNING FOR MOOD 270 Jun 01, 2020 [id number] Dec 29, 2019 KENA RAGSDALE [place] VENLAFAXINE HCL 75MG 24HR CAP,SA Discontinued TAKE ON E CAPSULE BY MOUTH EVERY MORNING FOR MOOD 90 Apr 13, 2020 [id number] Apr 13, 2019 KESHAWN SHERMAN [facility] Problems (Conditions): All historical and current Section Date Range: From patient's date of to the date document was create d. This section includes a list of Problems (Conditions) know n to [place] for the patient. It includes both active and inacti ve problems (conditions). The data comes from all [place] treatment facilities. Problem Status Problem Code Date of Onset Date of Resolution Comm ent(s) Provider Source Allergic rhinitis * (ICD-9-CM 477.9) Active 477.9 STEPHEN BARAJAS [place] Chronic kidney disease stage 3 Active [id number] KESHAWN SHERMAN Corneal epithelial dystrophy Active 613317953 [facility] Depression Active 78662777 KESHAWN SHERMAN [facility] Gastroesophageal reflux disease (SNOMED CT 510932355) Active [id number] 74809 Nov 30, 2009 Entered By: FRANCO HERNANDEZ Comment: hiatal herniaFeb 2009 Entered By: FRANCO HERNANDEZ Comment: schiatzski ringFeb 2010 Entered By: FRANCO HERNANDEZ Comment: omeprazole and Zantac.Jun 24, 2012 Entered By: FRANCO HERNANDEZ Comment: GERD KESHAWN SHERMAN H/O: surgery Active 200651594 Aug 21, 2012 Entered By: FRANCO HERNANDEZ [...] HERNANDEZ History of polyp of colon Active 656327148 February 24, 2009 Entered By: FRANCO HERNANDEZ Comment: next colonoscopy 2008 Entered By: FRANCO HERNANDEZ Comment: tubulovilousNov 2011 Entered By: FRANCO HERNANDEZ Comment: AUG 20, 2012@14:08:51 Colonoscopy :Diverticulosis Aug 21, 2012 Entered By: FRANCO HERNANDEZ Comment: Repeat of Colonoscopy in 5 years 2017 Entered By: KESHAWN SHERMAN Comment: he refuses repeat colonoscopy KESHAWN SHERMAN Hyperlipidemia Active 53089584 KESHAWN SHERMAN Hypertension Active 21839860 KESHAWN SHERMAN Hypotonic bladder Active 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 Dec 28, 2014 Entered By: KESHAWN SHERMAN Comment: Inability to void, was seen March 2013 with catheter placedDec 28, 2014 Entered By: KESHAWN SHERMAN Comment: Now has permanent suprapubic catheterDec 28, 2014 Entered By: KESHAWN SHERMAN Comment: D/c terazosin KESHWAN SHERMAN Impaired glucose tolerance Active 9818024 Dec 31, 2013 Entered By: KESHAWN SHERMAN Comment: A1c 5.9% Dec Entered By: KESHAWN SHERMAN Comment: 5.9% December Entered By: KESHAWN SHERMAN Comment: A1c 5.9% December Entered By: KESHAWN SHERMAN Comment: a1c 6.3% December 2018 KESHAWN SHERMAN Lumbago Active 646718834 KESHAWN SHERMAN Monoclonal gammopathy of uncertain significance Active 615830828 KESHAWN SHERMAN Obesity Active 278.00 Nov 27, 2010 E ntered By: FRANCO HERNANDEZ Comment: bmi 36Dec 18, 2010 Entered By: FRANCO HERNANDEZ Comment: bmi 34 FRANCO HERNANDEZ Tinnitus Active 388.30 FRANCO HERNANDEZ Benign Prostatic Hypertrophy Inactive 799.9 Dec 25, 2017 Jun 24, 2012 Entered By: FRANCO HERNANDEZ Comment: BPH FRACNO HERNANDEZ Depression * (ICD-9-CM 300.4/311.) Inactive 311. [...] URGENCY: STATUS: COMPLETED Called regarding transfer to [place]. I explained to him that we are not able to assign him to a team here until fall. I offered the option of either staying with his current team until assigned or we could send him to a local Dr via [place] [facility]. He stated that he would stay with current team until assigned. Clive rebollar. #SHIP'S OFFICER# /es/ RICARDO BOYLE [facility] Signed: 06/03/2019 17:05 RICARDO BOYLE IL[facility]
--- OUTSIDE RECORDS SUMMARY | 2020-05-09 09:47 | XMS REPORT | Encounter Summary ---
Author Author Department of [facility] MARGARET pereira [facility] of [facility] Address [address] [place] [address] Phone Unavailable Care Team Providers Care Slide Machine Tender Name Role Phone KESHAWN SHERMAN PCP Unavailable [...] PART A Aug 20, 2011 PART A [id number] [phone] GUILLERMOMARGARET PATIENT MEDICARE (WNR) MEDICARE (M) PART B Aug 20, 2011 PART B [id number] 80A [phone] GUILLERMOMARGARET PATIENT MEDICARE (WNR) MEDICARE (M) PART A Aug 20, 2011 PART A [id number] 80A [phone] GUILLERMOMARGARET PATIENT MEDICARE (WNR) MEDICARE (M) PART B Aug 20, 2011 PART B [id number] 80A [phone] MARGARET LI PATIENT Selected Encounter This section includes the information on record at [place] for the Encounter. Date/Time Encounter Type Encounter Description Reason Provider Source Jun 01, 2019 03:00 PM Outpatient En[facility] IND ICD-10-CM F33.9 Major depressive disorder, recurrent, unspecified with Provider Comments: Depression ([facility] [place] [id number]) MARQUIS RACHEL [facility] IHE Encounter Template Text not used by [place] Assessments - Encounter Diagnoses This section includes the primary and secondary diag noses documented for the Encounter. Date/Time Primary/Secondary Diagnosis Diagnosis Name Provider Source Jun 01, 2019 02:51 PM PRIMARY Major depressive disorder, recurrent, unspecified MARQUIS RACHEL [facility] Plan of Treatment: Future Appointments (+ 6 months) and Future Tests (+/- 45 day s) The Plan of Treatment section includes future care activities for the patient fr om all [place] treatment facilities. This section includes future appointments and fu ture orders which are active, pending or scheduled. Future Appointments This section includes appointments that were scheduled t o occur 6 months from the date of the Encounter, up to a maximum of 20 appointme nts. The data comes from all [place] treatment facilities. Appointment Date/Time Appointment Type Appointment Facili ty Name Jun 25, 2019 11:00 AM AMBULATORY - NONE [facility] Jun 25, 2019 02:00 PM AMBULATORY - MEDICINE [facility] Jun 28, 2019 02:15 PM AMBULATORY - MEDICINE [facility] Jun 30, 2019 02:15 PM AMBULATORY - MEDICINE [facility] Jul 05, 2019 02:15 PM AMBULATORY - MEDICINE [facility] Aug 31, 2019 02:30 PM AM[facility]ULATORY [facility] Aug 31, 2019 02:35 PM [facility] Sep 21, 2019 02:30 PM AMBULATORY PS[facility]RY [facility] Sep 21, 2019 02:35 PM AMBULATORY - [facility]CH[facility]ATRY [facility] Surgical Procedures: All associated to the encounter No Data Provided for This Section Lab Results: +/- 30 days of the encounter This section includes the Chemistry and Hematology Lab R esults on record with [place] for the patient. Radiology Reports and Pathology Report s are provided separately, in subsequent sections. Lab Results This section contains the Chemistry/Hematology Results ysabel t were resulted 30 days before or 30 days after the date of the Encounter. Date/Time Source Result Type Result - Unit Interpretation Reference Range Comment Jun 25, 2019 12:44 PM [facility] CBC Specimen Type: BLOOD Comment: See [...] 32-36 Jun 25, 2019 12:44 PM [facility] DIFFERENTIAL Specimen Type: BLOOD Comment: See manual differential. SEGS 80 % H 36-66 LYMPHS 12 % L 19-53 MONOS 5 % 0-9 EOSINO 3 % 0-8 NORMOCYTIC Yes PLT (ESTM) ADEQ NL Jun 25, 2019 12:44 PM [facility] RENAL PROFILE Specimen Type: SERUM No [...] .61-1.24 Jun 25, 2019 12:44 PM [facility] SERUM PEP(PRO. ELECTROPHO RSIS) Specimen Type: [...] DETECTED Jun 25, 2019 12:44 PM [facility] KAPPA/LAMBDA LIGHT CHAINS , FREE, SERUM [...] Source Jun 01, 2019 02:48 PM 0 [facility] Jun 01, 2019 02:44 PM 76 /min 115/77 mm[Hg] 18 /min 94 % 0 255.8 lb 38 [facility] Immunizations: All administered on the encounter [...] Adverse Reactions (ADR s) on record with IA for the patient. The data comes from a ll [place] treatment facilities. It does not list Allergies/ADRs [...] VA pharmacy in the last 15 m [facility], and 2) all medications recorded in the IA medical record as "non-VA medic ations". Pharmacy terms refer to VA pharmacy's work on prescriptions. VA patient s are advised to take their medications as instructed by their health care team. The data comes from all [place] treatment facilities. Glossary of Pharmacy Terms:Active = A prescription that can be filled at the local [place] pharmacy.Active: On Hold = An active prescription that will not be filled until pharmacy resolves the issue.Active: Susp = An active prescription that is not scheduled to be filled yet.Clinic Order = A medication received during a visit to a IA clinic or emergency department (currently not available).Discontinued = A prescription stopped by a IA provider. It is no longer available to be filled. = A prescription which is too old to fill. This does not refer to the expiration date of the medication in the container. Non-VA = A medication that came from someplace other than a [place] pharmacy. This may be a prescription from either the [place] or other providers that was filled outside the IA. Or, it may be an over the [...] FOR BLOOD PRESSURE 90 Sep 24, 2020 [id number] Apr 07, 2020 V KESHAWN VAUGHN [facility] ATENOLOL 50MG/CHLORTHALIDONE 25MG TAB Discontinued TA KE 1 TABLET BY MOUTH EVERY MORNING FOR BLOOD PRESSURE 90 Oct 17, 2019 [id number] Jul 26, 2019 [facility] AT[facility] [place] 80MG TAB Active TAKE ONE-HALF T ABLET BY MOUTH AT BEDTIME FOR CHOLESTEROL - DO NOT TAKE WITH GRAPEFRUIT JUICE 45 Apr 11, 2021 [id number] Apr 10, 2020 KESHAWN SHERMAN [facility] ATORVASTATIN CA 80MG TAB Discontinued TAKE ONE-HALF T ABLET BY MOUTH AT BEDTIME FOR CHOLESTEROL - DO NOT TAKE WITH GRAPEFRUIT JUICE 45 Dec 23, 2019 [id number] Oct 14, 2019 KESHAWN SHERMAN [facility] CARBOXYMETHYLCELLULOSE NA 0.5% SOLN,OPH INSTILL ONE DROP IN EACH EYE FOUR TIMES DAILY Feb 10, 2020 [id number] Feb 09, 2019 [facility] CARBOXYMETHYLCELLULOSE NA 1% GEL,OPH INS TILL ONE DROP TO EACH EYE TWICE A DAY Feb 10, 2020 [id number] Feb 09, 2019 [facility] CIPROFLOXACIN HCL 500MG TAB Active TAKE ONE TAB LET BY MOUTH TWICE A DAY - ANTIBIOTIC - TAKE UNTIL GONE *TAKE WITH FOOD AND AVOID TAKING WITH DAIRY OR PRODUCTS CONTAINING ALUMINUM, IRON, CALCIUM, OR MAGNESIUM* 14 J 2019 [id number] Apr 12, 2020 ALEXANDRA REYES [facility] FAMOTIDINE 40MG TAB Active TAKE ONE TABLET BY M OUTH ONCE DAILY FOR STOMACH/REFLUX 30 Apr 12, 2021 [id number] Apr 11, 2020 KESHAWN SHERMAN [facility] FAMOTIDINE 40MG TAB Discontinued TAKE ONE TABLET BY M OUTH ONCE DAILY FOR STOMACH/REFLUX 90 Sep 24, 2020 [id number] Dec 29, 2019 KESHAWN SHERMAN [facility] FLUTICASONE PROPIONATE 50MCG/SPRAY SOLN,NASAL,16GM Active USE 2 SPRAYS IN NOSE TWICE A DAY SHAKE GENTLY BEFORE USE 3 Apr 11, 2021 [id number] J 2019 KESHAWN SHERMAN [facility] [...] TAKE WITH FOOD 100 Apr 11, 2021 [id number] Apr 10, 2020 KESHAWN SHERMAN [facility] MAGNESIUM OXIDE 420MG TAB Discontinued TAKE ONE TABLE T BY MOUTH TWICE A DAY TAKE WITH FOOD 100 Jan 14, 2020 [id number] Dec 29, 2019 KESHAWN SHERMAN [facility] OMEPRAZOLE 20MG CAP,EC Active TAKE 1 CAPSULE BY MOUTH ONCE DAILY FOR THE STOMACH 90 Dec 30, 2020 [id number] Apr 07, 2020 KESHAWN SHERMAN [facility] OMEPRAZOLE 20MG CAP,EC Discontinued TAKE 1 CAPSULE BY MOUTH ONCE DAILY FOR THE STOMACH 90 Dec 23, 2019 [id number] Oct 14, 2019 KESHAWN SHERMAN [facility] POTASSIUM CHLORIDE 20MEQ TAB,SA (DISPERSIBLE) Active TAKE ONE TABLET BY MOUTH ONCE DAILY WITH FOOD 90 Dec 30, 2020 [id number] Apr 19, 2020 HAMLET SHERMAN [facility] POTASSIUM CHLORIDE 20MEQ TAB,SA (DISPERSIBLE) Discontinued TAKE ONE TABLET BY MOUTH ONCE DAILY WITH FOOD 90 Dec 23, 2019 [id number] Nov 11, 2019 KESHAWN JOHNSON [facility] RANITIDINE HCL 150MG TAB Discontinued TAKE TWO TABLET S BY MOUTH AT BEDTIME FOR STOMACH 180 Dec 23, 2019 [id number] Jul 26, 2019 [place]ESHAWN SHERMAN [place] VENLAFAXINE HCL 37.5MG 24HR CAP,SA Active TAKE 3 CAPSULES BY MOUTH EVERY MORNING FOR MOOD 270 Apr 08, 2021 [id number] Apr 07, 2020 KENA GLASGOW [facility] VENLAFAXINE HCL 37.5MG 24HR CAP,SA Discontinued TAKE 3 CAPSULES BY MOUTH EVERY MORNING FOR MOOD 270 Jun 01, 2020 [id number] Dec 29, 2019 KENA GLASGOW [facility] VENLAFAXINE HCL 75MG 24HR CAP,SA Discontinued TAKE ON E CAPSULE BY MOUTH EVERY MORNING FOR MOOD 90 Apr 13, 2020 [id number] Apr 13, 2019 KESHAWN SHERMAN [facility] Problems (Conditions): All historical and current Section Date Range: From patient's date of to the date document was create d. This section includes a list of Problems (Conditions) know n to [place] for the patient. It includes both active and inacti ve problems (conditions). The data comes from all [place] treatment facilities. Problem Status Problem Code Date of Onset Date of Resolution Comm ent(s) Provider Source Allergic rhinitis * (ICD-9-CM 477.9) Active 477.9 STEPHEN BARAJAS [place] Chronic kidney disease stage 3 Active 156542154 KESHAWN SHERMAN Corneal epithelial dystrophy Active 849997300 [facility] Depression Active 09566984 [facility] Gastroesophageal reflux disease (SNOMED CT 243478895) Active 7833 48571 Nov 30, 2009 Entered By: FRANCO HERNANDEZ Comment: hiatal herniaFeb 2009 Entered By: FRANCO HERNANDEZ Comment: schiatzski ringFeb 2010 Entered By: FRANCO HERNANDEZ Comment: omeprazole and Zantac.Jun 24, 2012 Entered By: FRANCO HERNANDEZ Comment: GERD KESHAWN SHERMAN H/O: surgery Active 331162521 Aug 21, 2012 Entered By: FRANCO HERNANDEZ [...] HERNANDEZ History of polyp of colon Active 230260036 February 24, 2009 Entered By: FRANCO HERNANDEZ Comment: next colonoscopy 2008 Entered By: FRANCO HERNANDEZ Comment: tubulovilousNov 2011 Entered By: FRANCO HERNANDEZ Comment: AUG 20, 2012@14:08:51 Colonoscopy :Diverticulosis Aug 21, 2012 Entered By: FRANCO HERNANDEZ Comment: Repeat of Colonoscopy in 5 years 2017 Entered By: KESHAWN SHERMAN Comment: he refuses repeat colonoscopy KESHAWN SHERMAN Hyperlipidemia Active 44095469 KESHAWN SHERMAN Hypertension Active 49509513 KESHAWN SHERMAN Hypotonic bladder Active 405786825 Dec 28, 2014 Entered By: KESHAWN SHERMAN Comment: Inability to void, was seen March 2013 with catheter placedDec 28, 2014 Entered By: KESHAWN SHERMAN Comment: Now has permanent suprapubic catheterDec 28, 2014 Entered By: KESHAWN SHERMAN Comment: D/c terazosin KESHAWN SHERMAN Impaired glucose tolerance Active 9202450 Dec 31, 2013 Entered By: KESHAWN SHERMAN Comment: A1c 5.9% Dec Entered By: KESHAWN SHERMAN Comment: 5.9% December Entered By: KESHAWN SHERMAN Comment: A1c 5.9% December Entered By: KESHAWN SHERMAN Comment: a1c 6.3% December 2018 KESHAWN SHERMAN Lumbago Active 650611990 KESHAWN SHERMAN Monoclonal gammopathy of uncertain significance Active 600665105 KESHAWN SHERMAN Obesity Active 278.00 Nov 27, [...] RACHEL EXP COSIGNER: URGENCY: STATUS: COMPLETED SUBJECTIVE: [place] presents today for appt with Kena Glasgow [...] REGISTERED NURSE-LINDSEY Signed: 06/01/2019 14:51 MARQUIS RACHEL [facility]
--- OUTSIDE RECORDS SUMMARY | 2020-05-09 09:47 | XMS REPORT | Encounter Summary ---
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 Date/Time Encounter Type Encounter [...] activities for the patient fr om all [place] treatment facilities. This section includes future appointments and fu ture orders which are active, pending or scheduled. Future Appointments This section includes appointments that were scheduled t o occur 6 months from the date of the Encounter, up to a maximum of 20 appointme nts. The data comes from all [place] treatment [facility]. Appointment Date/Time Appointment Type Appointment Facili ty Name Jul 05, 2019 02:15 PM AMBULATORY - [facility]ICINE [facility] Aug 31, 2019 02:30 PM AMBULATORY - PSYCHIATRY [facility] Aug 31, 2019 02:35 PM AMBULATORY - PSYCHIATRY [facility] Sep 21, 2019 02:30 PM AMBULATORY PSYCHIATRY [facility] Sep 21, 2019 02:35 PM AMBULATORY - PSYCHIATRY [facility] Dec 17, 2019 02:00 PM AMBULATORY - MEDICINE [facility] Surgical Procedures: All associated to the encounter No Data Provided for This Section Lab Results: +/- 30 days of the encounter This section includes the Chemistry and Hematology Lab R esults on record with [place] for the patient. Radiology Reports and Pathology [...] seen. Reviewed by Alec Elias MD, [facility] ALPHA 1 GLOBULINS (G/DL) 0.2 g/dL 0.1-0 [...] and tobacco- related health factors from the HI facility where the Encounter took place. Current Smoking Status This section includes the most current smoking, or tobacco -related health factor, from the HI facility where the Encounter took place. Date/Time Current Smoking Status Comment Facility Nov 03, 2018 09:51 AM VA-TOBACCO NEVER USED [place] A R Tobacco Use History This section includes a history of the smoking, or tobacco -related health factors, that were collected on or before the date of the Encoun ter. The data comes from the HI facility where the Encounter took place. Date/Time [...] patient. The data comes from a ll [place] treatment facilities. It does not list Allergies/ADRs [...] Date Range: 1) prescriptions processed by a HI pharmacy in the last 15 m [facility], and 2) all medications recorded in the HI medical record as "non-VA medic ations". Pharmacy terms refer to VA pharmacy's work on prescriptions. VA patient s are advised to take their medications as instructed by their health care team. The data comes from all [place] treatment facilities. Glossary of Pharmacy Terms:Active = A prescription that can be filled at the local [place] pharmacy.Active: On Hold = An active prescription that will not be filled until pharmacy resolves the issue.Active: Susp = An active prescription that is not scheduled to be filled yet.Clinic Order = A medication received during a visit to a HI clinic or emergency department (currently not available).Discontinued = A prescription stopped by a VA provider. It is no longer available to be filled. = A prescription which is too old to fill. This does not refer to the expiration date of the medication in the container. Non-VA = A medication that came from someplace other than a HI pharmacy. This may be a prescription from either the [place] or other providers that was filled outside the HI. Or, it may be an over the [...] FOR BLOOD PRESSURE 90 Sep 24, 2020 [id number] Apr 07, 2020 KESHAWN JOHNSON [facility] ATENOLOL 50MG/CHLORTHALIDONE 25MG TAB Discontinued TA KE 1 TABLET BY MOUTH EVERY MORNING FOR BLOOD PRESSURE 90 Oct 17, 2019 [id number] Jul 26, 2019 KESHAWN JOHNSON [facility] ATORVASTATIN CA 80MG TAB Active TAKE ONE-HALF T ABLET BY MOUTH AT BEDTIME FOR CHOLESTEROL - DO NOT TAKE WITH GRAPEFRUIT JUICE 45 Apr 11, 2021 [id number] Apr 10, 2020 KESHAWN SHERMAN [facility] ATORVASTATIN CA 80MG TAB Discontinued TAKE ONE-HALF T ABLET BY MOUTH AT BEDTIME FOR CHOLESTEROL - DO NOT TAKE WITH GRAPEFRUIT JUICE 45 Dec 23, 2019 [id number] Oct 14, 2019 [facility] CARBOXYMETHYLCELLULOSE NA 0.5% SOLN,OPH INSTILL ONE DROP IN EACH EYE FOUR TIMES DAILY Feb 10, 2020 [id number] Feb 09, 2019 [facility] CARBOXYMETHYLCELLULOSE NA 1% GEL,OPH INS TILL ONE DROP TO EACH EYE TWICE A DAY Feb 10, 2020 [id number] Feb 09, [address] [facility] CIPROFLOXACIN HCL 500MG TAB Active TAKE ONE TAB LET BY MOUTH TWICE A DAY - ANTIBIOTIC - TAKE UNTIL GONE *TAKE WITH FOOD AND AVOID TAKING WITH DAIRY OR PRODUCTS CONTAINING ALUMINUM, IRON, CALCIUM, OR MAGNESIUM* 14 J 2019 [id number] Apr 12, 2020 ALEXANDRA REYES [facility] FAMOTIDINE 40MG TAB Active TAKE ONE TABLET BY M OUTH ONCE DAILY FOR STOMACH/REFLUX 30 Apr 12, 2021 [id number] Apr 11, 2020 KESHAWN SHERMAN [facility] FAMOTIDINE 40MG TAB Discontinued TAKE ONE TABLET BY M OUTH ONCE DAILY FOR STOMACH/REFLUX 90 Sep 24, 2020 [id number] Dec 29, 2019 KESHAWN SHERMAN [facility] FLUTICASONE PROPIONATE 50MCG/SPRAY SOLN,NASAL,16GM Active USE 2 SPRAYS IN NOSE TWICE A DAY SHAKE GENTLY BEFORE USE 3 Apr 11, 2021 [id number] J 2019 [facility] FLUTICASONE PROPIONATE 50MCG/SPRAY SOLN,NASAL,16GM Discontin ued USE 2 SPRAYS IN NOSE TWICE A DAY SHAKE GENTLY BEFORE USE 3 Dec 23, 2019 [id number] Jul 26, 2019 KESHAWN SHERMAN [facility] IBUPROFEN 600MG TAB Non- VA TAKE ONE TABLET BY MOUTH THREE TIMES DAILY WITH MEALS NEEDED Non-VA Documented by: KESHAWN SHERMAN Docume nted at: [facility] [place] MAGNESIUM OXIDE 420MG TAB Active TAKE ONE TABLE T BY MOUTH TWICE A DAY TAKE WITH FOOD 100 Apr 11, 2021 [id number] Apr 10, 2020 [facility] MAGNESIUM OXIDE 420MG TAB Discontinued TAKE ONE TABLE T BY MOUTH TWICE A DAY TAKE WITH FOOD 100 Jan 14, 2020 [id number] Dec 29, 2019 KESHAWN SHERMAN [facility] OMEPRAZOLE 20MG CAP,EC Active TAKE 1 CAPSULE BY MOUTH ONCE DAILY FOR THE STOMACH 90 Dec 30, 2020 [id number] Apr 07, 2020 KESHAWN SHERMAN [facility] OMEPRAZOLE 20MG CAP,EC Discontinued TAKE 1 CAPSULE BY MOUTH ONCE DAILY FOR THE STOMACH 90 Dec 23, 2019 [id number] Oct 14, 2019 KESHAWN SHERMAN [facility] POTASSIUM CHLORIDE 20MEQ TAB,SA (DISPERSIBLE) Active TAKE ONE TABLET BY MOUTH ONCE DAILY WITH FOOD 90 Dec 30, 2020 [id number] Apr 19, 2020 [facility]ER[facility] POTASSIUM CHLORIDE 20MEQ TAB,SA (DISPERSIBLE) Discontinued TAKE ONE TABLET BY MOUTH ONCE DAILY WITH FOOD 90 Dec 23, 2019 [id number] Nov 11, 2019 KESHAWN JOHNSON [facility] RANITIDINE HCL 150MG TAB Discontinued TAKE TWO TABLET S BY MOUTH AT BEDTIME FOR STOMACH 180 Dec 23, 2019 [id number] Jul 26, 2019 KESHAWN SHERMAN [place] VENLAFAXINE HCL 37.5MG 24HR CAP,SA Active TAKE 3 CAPSULES BY MOUTH EVERY MORNING FOR MOOD 270 Apr 08, 2021 [id number] Apr 07, 2020 KENA RAGSDALE [facility] VENLAFAXINE HCL 37.5MG 24HR CAP,SA Discontinued TAKE 3 CAPSULES BY MOUTH EVERY MORNING FOR MOOD 270 Jun 01, 2020 [id number] Dec 29, 2019 KENA RAGSDALE [facility] VENLAFAXINE HCL 75MG 24HR CAP,SA Discontinued TAKE ON E CAPSULE BY MOUTH EVERY MORNING FOR MOOD 90 Apr 13, 2020 [id number] Apr 13, 2019 KESHAWN SHERMAN [facility] Problems (Conditions): All historical and current Section Date Range: From patient's date of to the date document was create d. This section includes a list of Problems (Conditions) know n to [facility] for the patient. It includes both active and inacti ve problems (conditions). The data comes from all HI treatment facilities. Problem Status Problem Code Date of Onset Date of Resolution Comm ent(s) Provider Source Allergic rhinitis * (ICD-9-CM 477.9) Active 477.9 STEPHEN BARAJAS [place] Chronic kidney disease stage 3 Active 773966771 KESHAWN SHERMAN Corneal epithelial dystrophy Active 355373287 [facility] Depression Active 53648269 KESHAWN SHERMAN [place] Gastroesophageal reflux disease (SNOMED CT 393787987) Active 5502 37983 Nov 30, 2009 Entered By: FRANCO HERNANDEZ Comment: hiatal herniaFeb 2009 Entered By: FRANCO HERNANDEZ Comment: schiatzski ringFeb 2010 Entered By: FRANCO HERNANDEZ Comment: omeprazole and Zantac.Jun 24, 2012 Entered By: FRANCO HERNANDEZ Comment: GERD KESHAWN SHERMAN H/O: surgery Active 623932930 Aug 21, 2012 Entered By: FRANCO HERNANDEZ [...] HERNANDEZ History of polyp of colon Active 010436421 February 24, 2009 Entered By: FRANCO HERNANDEZ Comment: next colonoscopy 2008 Entered By: FRANCO HERNANDEZ Comment: tubulovilousAug 21, 2012 Entered By: FRANCO HERNANDEZ Comment: AUG 20, 2012@14:08:51 Colonoscopy :Diverticulosis Aug 21, 2012 Entered By: FRANCO HERNANDEZ Comment: Repeat of Colonoscopy in 5 years 2017 Entered By: KESHAWN SHERMAN Comment: he refuses repeat colonoscopy KESHAWN SHERMAN Hyperlipidemia Active 06785258 KESHAWN SHERMAN Hypertension Active 97277910 KESHAWN SHERMAN Hypotonic bladder Active 447987103 Dec 28, 2014 Entered By: KESHAWN SHERMAN Comment: Inability to void, was seen March 2013 with catheter placedDec 28, 2014 Entered By: KESHAWN SHERMAN Comment: Now has permanent suprapubic catheterDec 28, 2014 Entered By: KESHAWN SHERMAN Comment: D/c terazosin KESHAWN SHERMAN Impaired glucose tolerance Active 7650433 Dec 31, 2013 Entered By: KESHAWN SHERMAN Comment: A1c 5.9% Dec Entered By: KESHAWN SHERMAN Comment: 5.9% December Entered By: KESHAWN SHERMAN Comment: A1c 5.9% December Entered By: KESHAWN SHERMAN Comment: a1c 6.3% December 2018 KESHAWN SHERMAN Lumbago Active 282118782 KESHAWN SHERMAN Monoclonal gammopathy of uncertain significance Active 388846407 KESHAWN SHERMAN Obesity Active 278.00 Nov 27, [...] on 06/25, Thanks /marilyn/ MICHELLE BOWENS 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 /marilyn/ JAYASHREE LEE [employer] [facility], PRIMARY CARE Signed: 06/30/2019 16:08 MICHELLE BOWENS
--- OUTSIDE RECORDS SUMMARY | 2020-05-09 09:48 | XMS REPORT | Encounter Summary ---
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 Date/Time Encounter Type Encounter Description Reason Provider Source Apr 12, 2020 09:30 AM Outpatient Encounter TELEPHONE PRIMARY CAR E ICD-10-CM N39.0 Urinary tract infection, site not specified with Provider Comments: Urinary tract infection, site not specified ALEXANDRA REYES [employer] IHE Encounter Template Text not used by [place] Assessments - Encounter Diagnoses This section includes the primary and secondary diag noses documented for the Encounter. Date/Time Primary/Secondary Diagnosis Diagnosis Name Provider Source Apr 12, 2020 09:30 AM PRIMARY Urinary tract infection, s ite not specified SHAGUFTA LARIOS [facility] Plan of Treatment: Future Appointments (+ 6 months) and Future Tests (+/- 45 day s) The Plan of Treatment section includes future care activities for the patient fr om all [place] treatment facilities. This section includes future appointments and fu ture orders which are active, pending or scheduled. Future Appointments This section includes appointments that were scheduled t o occur 6 months from the date of the Encounter, up to a maximum of 20 appointme nts. The data comes from all [place] treatment facilities. Appointment Date/Time Appointment Type Appointment Facili ty Name May 05, 2020 03:09 PM AMBULATORY - PS[facility]IATRY [facility] May 16, 2020 11:00 AM AMBULATORY - NONE [facility] May 24, 2020 02:00 PM [facility] Surgical Procedures: All associated to the encounter No Data Provided for This Section Lab Results: +/- 30 days of the encounter This section includes the Chemistry and Hematology Lab R esults on record with [place] for the patient. Radiology Reports and Pathology Report s are provided separately, in subsequent sections. Lab Results This section contains the Chemistry/Hematology Results ysabel t were resulted 30 days before or 30 days after the date of the Encounter. Date/Time Source Result Type Result - Unit Interpretation Reference Range Comment Apr 05, 2020 07:35 AM [facility] MAGNESIUM Specimen Type: SERUM No comment entered. MAGNESIUM (FV) 1.9 mg/dL 1.8-2.4 Apr 05, 2020 07:35 AM [facility] TSH (FV) Specimen Type: SERUM No comment entered. TSH (FV) 1.41 mcIU/mL 0.45-5.33 Apr 05, 2020 07:35 AM [facility] RENAL+LIVER PROFILE Specimen Type: SERUM No [...] H .61-1.24 Apr 05, 2020 07:35 AM [facility] CBC Specimen Type: BLOOD No comment [...] K/cmm 0.0-0.2 Apr 05, 2020 07:35 AM [facility] B12 Specimen Type: SERUM No comment entered. VITAMIN B12 (FV) 243 pg/mL 180-914 Apr 05, 2020 07:35 AM [facility] GLYCO HGB A1C Specimen Type: BLOOD No comment entered. Glyco Hgb A1C 6.3 % H 4.2-5.8 Apr 05, 2020 07:35 AM [facility] LIPID PROFILE Specimen Type: SERUM No comment entered. CHOLESTEROL, TOTAL (FV) 186 mg/dL 118-20 0 TRIGLYCERIDE (FV) 114 mg/dL <150 LDL CHOLESTEROL (CALCULATED) 118 HDL CHOLESTEROL (FV) 45 mg/dL >40 Apr 05, 2020 07:35 AM [facility] URINALYSIS Specimen Type: URINE No comment [...] H NEG-74 Apr 05, 2020 07:35 AM [facility] MICROSCOPIC URINALYSIS Specimen Type: URINE Comment: [...] Adverse Reactions (ADR s) on record with [place] for the patient. The data comes from a [facility] treatment facilities. It does not list Allergies/ADRs [...] and 2) all medications recorded in the [place] medical record as "non-VA medic ations". Pharmacy terms refer to [place] pharmacy's work on prescriptions. [place] patient s are advised to take their medications as instructed by their health care team. The data comes from all [place] treatment facilities. Glossary of Pharmacy Terms:Active = A prescription that can be filled at the local [place] pharmacy.Active: On Hold = An active prescription that will not be filled until pharmacy resolves the issue.Active: Susp = An active prescription that is not scheduled to be filled yet.Clinic Order = A medication received during a visit to a [place] clinic or emergency department (currently not available).Discontinued [...] may be a prescription from either the [place] or other providers that was filled outside the [place]. Or, it may be an over the [...] FOR BLOOD PRESSURE 90 Sep 24, 2020 [id number] Apr 07, 2020 KESHAWN JOHNSON [facility] ATENOLOL 50MG/CHLORTHALIDONE 25MG TAB Discontinued TA KE 1 TABLET BY MOUTH EVERY MORNING FOR BLOOD PRESSURE 90 Oct 17, 2019 [id number] Jul 26, 2019 KESHAWN JOHNSON [facility] ATORVASTATIN CA 80MG TAB Active TAKE ONE-HALF T ABLET BY MOUTH AT BEDTIME FOR CHOLESTEROL - DO NOT TAKE WITH GRAPEFRUIT JUICE 45 Apr 11, 2021 [id number] Apr 10, 2020 KESHAWN SHERMAN [facility] ATORVASTATIN CA 80MG TAB Discontinued TAKE ONE-HALF T ABLET BY MOUTH AT BEDTIME FOR CHOLESTEROL - DO NOT TAKE WITH GRAPEFRUIT JUICE 45 Dec 23, 2019 [id number] Oct 14, 2019 KESHAWN SHERMAN [facility] CARBOXYMETHYLCELLULOSE NA 0.5% SOLN,OPH INSTILL ONE DROP IN EACH EYE FOUR TIMES DAILY 15 Feb 10, 2020 [id number] Feb 09, 2019 [facility] [place] [facility] CARBOXYMETHYLCELLULOSE NA 1% GEL,OPH INS TILL ONE DROP TO EACH EYE TWICE A DAY 15 Feb 10, 2020 [id number] Feb 09, 2019 [facility] [place] [facility] CIPROFLOXACIN HCL 500MG TAB Active TAKE ONE TAB LET BY MOUTH TWICE A DAY - ANTIBIOTIC - TAKE UNTIL GONE *TAKE WITH FOOD AND AVOID TAKING WITH DAIRY OR PRODUCTS CONTAINING ALUMINUM, IRON, CALCIUM, OR MAGNESIUM* 14 J 2019 [id number] Apr 12, 2020 ALEXANDRA REYES [facility] FAMOTIDINE 40MG TAB Active TAKE ONE TABLET BY M OUTH ONCE DAILY FOR STOMACH/REFLUX 30 Apr 12, 2021 [id number] Apr 11, 2020 KESHAWN SHERMAN [facility] FAMOTIDINE 40MG TAB Discontinued TAKE ONE TABLET BY M OUTH ONCE DAILY FOR STOMACH/REFLUX 90 Sep 24, 2020 [id number] Dec 29, 2019 [facility] FLUTICASONE PROPIONATE 50MCG/SPRAY SOLN,NASAL,16GM Active USE 2 SPRAYS IN NOSE TWICE A DAY SHAKE GENTLY BEFORE USE 3 Apr 11, 2021 [id number] J 2019 [facility] FLUTICASONE PROPIONATE 50MCG/SPRAY SOLN,NASAL,16GM Discontin ued USE 2 SPRAYS IN NOSE TWICE A DAY SHAKE GENTLY BEFORE USE 3 Dec 23, 2019 [id number] Jul 26, 2019 KESHAWN SHERMAN [facility] IBUPROFEN 600MG TAB Non- [place] TAKE ONE TABLET BY MOUTH THREE TIMES DAILY WITH MEALS NEEDED Non-VA Documented by: KESHAWN SHERMAN [facility]ume [facility]ted [facility]: [facility] MAGNESIUM OXIDE 420MG TAB Active TAKE ONE TABLE T BY MOUTH TWICE A DAY TAKE WITH FOOD 100 Apr 11, 2021 [id number] Apr 10, 2020 [facility] MAGNESIUM OXIDE 420MG TAB Discontinued TAKE ONE TABLE T BY MOUTH TWICE A DAY TAKE WITH FOOD 100 Jan 14, 2020 [id number] Dec 29, 2019 [facility] OMEPRAZOLE 20MG CAP,EC Active TAKE 1 CAPSULE BY MOUTH ONCE DAILY FOR THE STOMACH 90 Dec 30, 2020 [id number] Apr 07, 2020 [facility] OMEPRAZOLE 20MG CAP,EC Discontinued TAKE 1 CAPSULE BY MOUTH ONCE DAILY FOR THE STOMACH 90 Dec 23, 2019 [id number] Oct 14, 2019 [facility] POTASSIUM CHLORIDE 20MEQ TAB,SA (DISPERSIBLE) Active TAKE ONE TABLET BY MOUTH ONCE DAILY WITH FOOD 90 Dec 30, 2020 [id number] Apr 19, 2020 HAMLET SHERMAN [facility] POTASSIUM CHLORIDE 20MEQ TAB,SA (DISPERSIBLE) Discontinued TAKE ONE TABLET BY MOUTH ONCE DAILY WITH FOOD 90 Dec 23, 2019 [id number] Nov 11, 2019 KESHAWN JOHNSON [facility] RANITIDINE HCL 150MG TAB Discontinued TAKE TWO TABLET S BY MOUTH AT BEDTIME FOR STOMACH 180 Dec 23, 2019 [id number] Jul 26, 2019 KESHAWN SHERMAN [facility] VENLAFAXINE HCL 37.5MG 24HR CAP,SA Active TAKE 3 CAPSULES BY MOUTH EVERY MORNING FOR MOOD 270 Apr 08, 2021 [id number] Apr 07, 2020 KENA RAGSDALE [facility] VENLAFAXINE HCL 37.5MG 24HR CAP,SA Discontinued TAKE 3 CAPSULES BY MOUTH EVERY MORNING FOR MOOD 270 Jun 01, 2020 [id number] Dec 29, 2019 KENA RAGSDALE [facility] VENLAFAXINE HCL 75MG 24HR CAP,SA Discontinued TAKE ON E CAPSULE BY MOUTH EVERY MORNING FOR MOOD 90 Apr 13, 2020 [id number] Apr 13, 2019 KESHAWN SHERMAN [facility] Problems (Conditions): All historical and current Section Date Range: From patient's date of to the date document was create d. This section includes a list of Problems (Conditions) know n to [place] for the patient. It includes both active and inacti ve problems (conditions). The data comes from all [place] treatment facilities. Problem Status Problem Code Date of Onset Date of Resolution Comm ent(s) Provider Source Allergic rhinitis * (ICD-9-CM 477.9) Active 477.9 STEPHEN BARAJAS Chronic kidney disease stage 3 Active 874363149 KESHAWN SHERMAN Corneal epithelial dystrophy Active 489508359 [facility] [place] [facility] Depression Active 74182075 KESHAWN SHERMAN Gastroesophageal reflux disease (SNOMED CT 200107087) Active 3805 19535 Nov 30, 2009 Entered By: FRANCO HERNANDEZ Comment: hiatal herniaFeb 2009 Entered By: FRANCO HERNANDEZ Comment: schiatzski ringFeb 2010 Entered By: FRANCO HERNANDEZ Comment: omeprazole and Zantac.Jun 24, 2012 Entered By: FRANCO HERNANDEZ Comment: GERD KESHAWN SHERMAN H/O: surgery Active [id number] Aug 21, 2012 Entered By: FRANCO HERNANDEZ [...] HERNANDEZ History of polyp of colon Active 893699181 February 24, 2009 Entered By: FRANCO HERNANDEZ Comment: next colonoscopy 2008 Entered By: FRANCO HERNANDEZ Comment: tubulovilousNov 2011 Entered By: FRANCO HERNANDEZ Comment: AUG 20, 2012@14:08:51 Colonoscopy :Diverticulosis Aug 21, 2012 Entered By: FRANCO HERNANDEZ Comment: Repeat of Colonoscopy in 5 years 2017 Entered By: KESHAWN SHERMAN Comment: he refuses repeat colonoscopy KESHAWN SHERMAN Hyperlipidemia Active 78617803 KESHAWN SHERMAN Hypertension Active 36356673 [facility] Hypotonic bladder Active 076494377 Dec 28, 2014 Entered By: KESHAWN SHERMAN Comment: Inability to void, was seen March 2013 with catheter placedDec 28, 2014 Entered By: KESHAWN SHERMAN Comment: Now has permanent suprapubic catheterDec 28, 2014 Entered By: KESHAWN SHERMAN Comment: D/c terazosin KESHAWN SHERMAN Impaired glucose tolerance Active 3245158 Dec 31, 2013 Entered By: KESHAWN SHERMAN Comment: A1c 5.9% Dec Entered By: KESHAWN SHERMAN Comment: 5.9% December Entered By: KESHAWN SHERMAN Comment: A1c 5.9% December Entered By: KESHAWN SHERMAN Comment: a1c 6.3% December 2018 KESHAWN SHERMAN Lumbago Active 347493646 KESHAWN SHERMAN Monoclonal gammopathy of uncertain significance Active 913450195 KESHAWN SHERMAN Obesity Active 278.00 Nov 27, [...] STATUS: COMPLETED PATIENT NAME: MARGARET LI SSN: [id number] FUTURE APPOINTMENTS: Apr@11:00 JOP [facility] TM 1 PROVIDER May@14:00 HILL UGALDE MD 1 PATIENT'S HOME PHONE: CULTURE, URINE................ completed: Apr 08, 2020 * BACTERIOLOGY FINAL REPORT => Apr 08, 2020 09:56 TECH CODE: [id number] CULTURE RESULTS: PSEUDOMONAS AERUGINOSA - Quantity: >100,000 [...] PRIMARY CARE HANS Signed: 04/12/2020 10:41 [facility]
--- OUTSIDE RECORDS SUMMARY | 2020-05-09 09:48 | XMS REPORT | Encounter Summary ---
Author Author Department [facility] [employer] MARGARET pereira Department of [facility] Address [address] [place] [address] Phone Unavailable Care Team Providers Care Vice President Sales Name Role Phone KESHAWN SHERMAN PCP Unavailable [...] PART A Aug 20, 2011 PART A [id number] [phone] GUILLERMOMARGARET PATIENT MEDICARE (WNR) MEDICARE (M) PART B Aug 20, 2011 PART B [id number] [phone] MARGARET LI PATIENT MEDICARE (WNR) MEDICARE (M) PART A Aug 20, 2011 PART A [id number] [phone] MARGARET LI PATIENT MEDICARE (WNR) MEDICARE (M) PART B Aug 20, 2011 PART B [id number] 80A [phone] MARGARET LI PATIENT Selected Encounter This section includes the information on record at [place] for the Encounter. Date/Time Encounter Type Encounter [...] activities for the patient fr om all [place] treatment facilities. This section includes future appointments and fu ture orders which are active, pending or scheduled. Future Appointments This section includes appointments that were scheduled t o occur 6 months from the date of the Encounter, up to a maximum of 20 appointme nts. The data comes from all [place] treatment [facility]. Appointment Date/Time Appointment Type Appointment Facili ty Name Jun 01, 2019 03:00 PM [facility] Jun 01, 2019 03:05 PM [facility] Jun 25, 2019 11:00 AM [facility] Jun 25, 2019 02:00 PM [...] Comment Facility Nov 03, 2018 09:51 AM [place]-TOBACCO NEVER USED UNIQUE A R Tobacco Use History This section includes a history of the smoking, or tobacco -related health factors, that were collected on or before the date of the Encoun ter. The data comes from the [place] facility where the Encounter took place. Date/Time [...] patient. The data comes from a ll [place] treatment facilities. It does not list Allergies/ADRs [...] pharmacy in the last 15 m [facility], and 2) all medications recorded in the [place] medical record as "non-VA medic ations". Pharmacy terms refer to [place] pharmacy's work on prescriptions. [place] patient s are advised to take their medications as instructed by their health care team. The data comes from all [place] treatment facilities. Glossary of Pharmacy Terms:Active = A prescription that can be filled at the local [place] pharmacy.Active: On Hold = An active prescription that will not be filled until pharmacy resolves the issue.Active: Susp = An active prescription that is not scheduled to be filled yet.Clinic Order = A medication received during a visit to a [place] clinic or emergency department (currently not available).Discontinued [...] FOR BLOOD PRESSURE 90 Sep 24, 2020 [id number] Apr 07, 2020 KESHAWN JOHNSON [facility] ATENOLOL 50MG/CHLORTHALIDONE 25MG TAB Discontinued TA KE 1 TABLET BY MOUTH EVERY MORNING FOR BLOOD PRESSURE 90 Oct 17, 2019 [id number] Jul 26, 2019 V KESHAWN VAUGHN [facility] ATORVASTATIN CA 80MG TAB Active TAKE ONE-HALF T ABLET BY MOUTH AT BEDTIME FOR CHOLESTEROL - DO NOT TAKE WITH GRAPEFRUIT JUICE 45 Apr 11, 2021 [id number] Apr 10, 2020 KESHAWN SHERMAN [facility] ATORVASTATIN CA 80MG TAB Discontinued TAKE ONE-HALF T ABLET BY MOUTH AT BEDTIME FOR CHOLESTEROL - DO NOT TAKE WITH GRAPEFRUIT JUICE 45 Dec 23, 2019 [id number] Oct 14, 2019 KESHAWN SHERMAN [facility] CARBOXYMETHYLCELLULOSE NA 0.5% SOLN,OPH INSTILL ONE DROP IN EACH EYE FOUR TIMES DAILY 15 Feb 10, 2020 [id number] Feb 09, 2019 MAGEN [facility] CARBOXYMETHYLCELLULOSE NA 1% GEL,OPH INS TILL ONE DROP TO EACH EYE TWICE A DAY 15 Feb 10, 2020 [id number] Feb 09, 2019 [facility] CIPROFLOXACIN HCL 500MG TAB Active TAKE ONE TAB LET BY MOUTH TWICE A DAY - ANTIBIOTIC - TAKE UNTIL GONE *TAKE WITH FOOD AND AVOID TAKING WITH DAIRY OR PRODUCTS CONTAINING ALUMINUM, IRON, CALCIUM, OR MAGNESIUM* 14 J 2019 [id number] Apr 12, 2020 ALEXANDRA REYES [facility] FAMOTIDINE 40MG TAB Active TAKE ONE TABLET BY M OUTH ONCE DAILY FOR STOMACH/REFLUX 30 Apr 12, 2021 [id number] Apr 11, 2020 KESHAWN SHERMAN [facility] FAMOTIDINE 40MG TAB Discontinued TAKE ONE TABLET BY M OUTH ONCE DAILY FOR STOMACH/REFLUX 90 Sep 24, 2020 [id number] Dec 29, 2019 KESHAWN SHERMAN [facility] FLUTICASONE PROPIONATE 50MCG/SPRAY SOLN,NASAL,16GM Active USE 2 SPRAYS IN NOSE TWICE A DAY SHAKE GENTLY BEFORE USE 3 Apr 11, 2021 [id number] J 2019 KESHAWN SHERMAN [facility] FLUTICASONE PROPIONATE 50MCG/SPRAY SOLN,NASAL,16GM Discontin ued USE 2 SPRAYS IN NOSE TWICE A DAY SHAKE GENTLY BEFORE USE Dec 23, 2019 [id number] Jul 26, 2019 KESHAWN SHERMAN [facility] IBUPROFEN 600MG TAB Non- VA TAKE ONE TABLET BY MOUTH THREE TIMES DAILY WITH MEALS NEEDED Non-VA Documented by: KESHAWN SHERMAN Docume nted at: [facility] [place] MAGNESIUM OXIDE 420MG TAB Active TAKE ONE TABLE T BY MOUTH TWICE A DAY TAKE WITH FOOD 100 Apr 11, 2021 [id number] Apr 10, 2020 [facility]IDE 420MG TAB Discontinued TAKE ONE TABLE T BY MOUTH TWICE A DAY TAKE WITH FOOD 100 Jan 14, 2020 [id number] Dec 29, 2019 KESHAWN SHERMANFAVIAN [facility] OMEPRAZOLE 20MG CAP,EC Active TAKE 1 CAPSULE BY MOUTH ONCE DAILY FOR THE STOMACH 90 Dec 30, 2020 [id number] Apr 07, 2020 [facility] OMEPR[facility]LE 20MG CAP,EC Discontinued TAKE 1 CAPSULE BY MOUTH ONCE DAILY FOR THE STOMACH 90 Dec 23, 2019 [id number] Oct 14, 2019 KESHAWN SHERMAN [facility] POTASSIUM CHLORIDE 20MEQ TAB,SA (DISPERSIBLE) Active TAKE ONE TABLET BY MOUTH ONCE DAILY WITH FOOD 90 Dec 30, 2020 [id number] Apr 19, 2020 HAMLET SHERMAN [facility] POTASSIUM CHLORIDE 20MEQ TAB,SA (DISPERSIBLE) Discontinued TAKE ONE TABLET BY MOUTH ONCE DAILY WITH FOOD 90 Dec 23, 2019 [id number] Nov 11, 2019 KESHAWN JOHNSON [facility] RANITIDINE HCL 150MG TAB Discontinued TAKE TWO TABLET S BY MOUTH AT BEDTIME FOR STOMACH 180 Dec 23, 2019 [id number] Jul 26, 2019 KESHAWN [facility]MAN[place]VI[facility] [place] VENLAFAXINE HCL 37.5MG 24HR CAP,SA Active TAKE 3 CAPSULES BY MOUTH EVERY MORNING FOR MOOD 270 Apr 08, 2021 [id number] Apr 07, 2020 KENA RAGSDALE [facility] VENLAFAXINE HCL 37.5MG 24HR CAP,SA Discontinued TAKE 3 CAPSULES BY MOUTH EVERY MORNING FOR MOOD 270 Jun 01, 2020 [id number] Dec 29, 2019 IFEANYI [facility] VENLAFAXINE HCL 75MG 24HR CAP,SA Discontinued TAKE ON E CAPSULE BY MOUTH EVERY MORNING FOR MOOD 90 Apr 13, 2020 [id number] Apr 13, 2019 KESHAWN SHERMAN [facility] Problems (Conditions): All historical and current Section Date Range: From patient's date of to the date document was create d. This section includes a list of Problems (Conditions) know n to [place] for the patient. It includes both active and inacti ve problems (conditions). The data comes from all [place] treatment facilities. Problem Status Problem Code Date of Onset Date of Resolution Comm ent(s) Provider Source Allergic rhinitis * (ICD-9-CM 477.9) Active 477.9 STEPHEN BARAJAS [place] Chronic kidney disease stage 3 Active 996420068 KESHAWN SHERMAN Corneal epithelial dystrophy Active 656309316 [facility]ILLI[facility] Depression Active 90770962 KESHAWN SHERMAN [place] Gastroesophageal reflux disease (SNOMED CT 125739038) Active 2355 95317 Nov 30, 2009 Entered By: FRANCO HERNANDEZ Comment: hiatal herniaFeb 2009 Entered By: FRANCO HERNANDEZ Comment: schiatzski ringFeb 2010 Entered By: FRANCO HERNANDEZ Comment: omeprazole and Zantac.Jun 24, 2012 Entered By: FRANCO HERNANDEZ Comment: GERD KESHAWN SHERMAN H/O: surgery Active 104323773 Aug 21, 2012 Entered By: FRANCO HERNANDEZ [...] HERNANDEZ History of polyp of colon Active 159495076 February 24, 2009 Entered By: FRANCO HERNANDEZ Comment: next colonoscopy 2008 Entered By: FRANCO HERNANDEZ Comment: tubulovilousNov 2011 Entered By: FRANCO HERNANDEZ Comment: AUG 20, 2012@14:08:51 Colonoscopy :Diverticulosis Aug 21, 2012 Entered By: FRANCO HERNANDEZ Comment: Repeat of Colonoscopy in 5 years 2017 Entered By: KESHAWN SHERMAN Comment: he refuses repeat colonoscopy KESHAWN SHERMAN Hyperlipidemia Active 03296417 KESHAWN SHERMAN Hypertension Active 60560599 KESHAWN SHERMAN Hypotonic bladder Active 695404686 Dec 28, 2014 Entered By: KESHAWN SHERMAN Comment: Inability to void, was seen March 2013 with catheter placedDec 28, 2014 Entered By: KESHAWN SHERMAN Comment: Now has permanent suprapubic catheterDec 28, 2014 Entered By: KESHAWN SHERMAN Comment: D/c terazosin KESHAWN SHERMAN Impaired glucose tolerance Active 7457796 Dec 31, 2013 Entered By: KESHAWN SHERMAN Comment: A1c 5.9% Dec Entered By: KESHAWN SHERMAN Comment: 5.9% December Entered By: KESHAWN SHERMAN Comment: A1c 5.9% December Entered By: KESHAWN SHERMAN Comment: a1c 6.3% December 2018 KESHAWN SHERMAN Lumbago Active 893325314 KESHAWN SHERMAN Monoclonal gammopathy of uncertain significance Active 440533554 LANEKESHAWNBOAZ [place]OR Obesity Active 278.00 Nov 27, [...] ADMINISTRATIVE NOT E: LOCAL TITLE: AUDIOLOGY [facility]ALTH [employer] ARCHITECT NOTE STANDARD TITLE: AUDIOLOGY ADMINISTRATIVE NOTE DATE OF NOTE: MAY 21, 2019@14:19 ENTRY DATE: MAY 21, 2019@14:19:19 AUTHOR: LENOOR KEITA EXP COSIGNER: FLORIN CLAY URGENCY: STATUS: COMPLETED AUDIOLOGY HEALTH [employer] ARCHITECT NOTE Has ADDENDA Patient dropped of his hearing aids with note that they are not working. Cleaned hearing aids and both are working but are very weak. Sending both hearing aids in for repair. Hearing aid(s) Issued: Make: Phonak Model: Audeo B90 312 Link/Tubin std Domes/Slimtip: Cshell SN(s): Left [id number] Right [id number] Battery: 312 Warranty Expiration date: 05/13/20 /marilyn/ LEONOR KEITA AUDIO [facility] [employer] ARCHITECT - LINDSE[place] Signed: 05/21/2019 14:20 /marilyn/ FLORIN KOLB/SOMMER FRACTIONATING STILL OPERATOR CHIEF, AUDIOLOGY & SPEECH PATHOLOGY Cosigned: 05/24/2019 09:40 06/02/2019 ADDENDUM STATUS: COMPLETED Received repaired hearing aids. Mailing to patient at [address] [place] [address] /marilyn/ LEONOR KEITA [facility] [employer] ARCHITECT - LINDSEY Signed: 06/02/2019 13:20 /marilyn/ FLORIN KOLB/SOMMER FRACTIONATING STILL OPERATOR CHIEF, AUDIOLOGY & SPEECH PATHOLOGY Cosigned: 06/02/2019 15:42 LEONOR KEITA [facility]
--- OUTSIDE RECORDS SUMMARY | 2020-05-09 09:48 | XMS REPORT | Encounter Summary ---
Author Author Department [facility] MARGARET pereira Department [facility] Address [address] [place] [address] Phone Unavailable Care Team Providers Care Electrician'S Assistant Name Role Phone KESHAWN SHERMAN PCP [...] PART A Aug 20, 2011 PART A [id number] [phone] GUILLERMOMARGARET PATIENT MEDICARE (WNR) MEDICARE (M) PART B Aug 20, 2011 PART B [id number] 80A [phone] MARGARET LI PATIENT MEDICARE (WNR) MEDICARE (M) PART A Aug 20, 2011 PART A [id number] 80A [id number] MARGARET LI PATIENT MEDICARE (WNR) MEDICARE (M) PART B Aug 20, 2011 PART B [id number] 80A [phone] MARGARET LI PATIENT Selected Encounter This section includes the information on record at [place] for the Encounter. Date/Time Encounter Type Encounter Description Reason Provider Source Apr 05, 2020 08:30 AM Outpatient Encounter PRIMARY CARE/MEDICINE [facility] IHE Encounter Template Text not used by [place] Assessments - Encounter Diagnoses No Data Provided [...] appointme nts. The data comes from all [facility]. Appointment Date/Time Appointment Type Appointment Facili ty Name Apr 12, 2020 09:30 AM AMBULATORY - MEDICINE [facility] May 05, 2020 03:09 PM AMBULATORY - PSYCHIATRY [facility] May 16, 2020 11:00 AM AMBULATORY - NONE [facility] May 24, 2020 02:00 PM AMBULATORY - PSYCHIATRY [facility] Surgical Procedures: All associated to the [...] Range Comment Apr 05, 2020 07:35 AM [facility] MAGNESIUM Specimen Type: SERUM No comment entered. MAGNESIUM (FV) 1.9 mg/dL 1.8-2.4 Apr 05, 2020 07:35 AM [facility] TSH (FV) Specimen Type: SERUM No comment entered. TSH (FV) 1.41 mcIU/mL 0.45-5.33 Apr 05, 2020 07:35 AM [facility] RENAL+LIVER PROFILE Specimen Type: SERUM No [...] H .61-1.24 Apr 05, 2020 07:35 AM [facility] CBC Specimen Type: BLOOD No comment [...] K/cmm 0.0-0.2 Apr 05, 2020 07:35 AM [facility] B12 Specimen Type: SERUM No comment entered. VITAMIN B12 (FV) 243 pg/mL 180-914 Apr 05, 2020 07:35 AM [facility] GLYCO HGB A1C Specimen Type: BLOOD No comment entered. Glyco Hgb A1C 6.3 % H 4.2-5.8 Apr 05, 2020 07:35 AM [facility] LIPID PROFILE Specimen Type: SERUM No comment entered. CHOLESTEROL, TOTAL (FV) 186 mg/dL 118-20 0 TRIGLYCERIDE (FV) 114 mg/dL <150 LDL CHOLESTEROL (CALCULATED) 118 HDL CHOLESTEROL (FV) 45 mg/dL >40 Apr 05, 2020 07:35 AM [facility] URINALYSIS Specimen Type: URINE No comment [...] H NEG-74 Apr 05, 2020 07:35 AM [facility] MICROSCOPIC URINALYSIS Specimen Type: URINE Comment: [...] the patient. The data comes from a [facility] treatment facilities. It does not list [...] Date Range: 1) prescriptions processed by a [place] pharmacy in the last 15 m ont, [...] FOR BLOOD PRESSURE 90 Sep 24, 2020 [id number] Apr 07, 2020 V KESHAWN VAUGHN [facility] ATENOLOL 50MG/CHLORTHALIDONE 25MG TAB Discontinued TA KE 1 TABLET BY MOUTH EVERY MORNING FOR BLOOD PRESSURE 90 Oct 17, 2019 [id number] Jul 26, 2019 V KESHAWN VAUGHN [facility] ATORVASTATIN [place] 80MG TAB Active TAKE ONE-HALF T ABLET BY MOUTH AT BEDTIME FOR CHOLESTEROL - DO NOT TAKE WITH GRAPEFRUIT JUICE 45 Apr 11, 2021 [id number] Apr 10, 2020 KESHAWN SHERMAN [facility] ATORVASTATIN [place] 80MG TAB Discontinued TAKE ONE-HALF T ABLET BY MOUTH AT BEDTIME FOR CHOLESTEROL - DO NOT TAKE WITH GRAPEFRUIT JUICE 45 Dec 23, 2019 [id number] Oct 14, 2019 KESHAWN SHERMAN [facility] CARBOXYMETHYLCELLULOSE NA 0.5% SOLN,OPH INSTILL ONE DROP IN EACH EYE FOUR TIMES DAILY 15 Feb 10, 2020 [id number] Feb 09, 2019 [facility] [place] [facility] CARBOXYMETHYLCELLULOSE NA 1% GEL,OPH INS TILL ONE DROP TO EACH EYE TWICE A DAY 15 Feb 10, 2020 [id number] Feb 09, 2019 [facility] [place] [facility] CIPROFLOXACIN HCL 500MG TAB Active TAKE ONE TAB LET BY MOUTH TWICE A DAY - ANTIBIOTIC - TAKE UNTIL GONE *TAKE WITH FOOD AND AVOID TAKING WITH DAIRY OR PRODUCTS CONTAINING ALUMINUM, IRON, CALCIUM, OR MAGNESIUM* 14 J 2019 [id number] Apr 12, 2020 ALEXANDRA REYES [facility] FAMOTIDINE 40MG TAB Active TAKE ONE TABLET BY M OUTH ONCE DAILY FOR STOMACH/REFLUX 30 Apr 12, 2021 [id number] Apr 11, 2020 KESHAWN SHERMAN [facility] FAMOTIDINE 40MG TAB Discontinued TAKE ONE TABLET BY M OUTH ONCE DAILY FOR STOMACH/REFLUX 90 Sep 24, 2020 [id number] Dec 29, 2019 KESHAWN SHERMAN [facility] FLUTICASONE PROPIONATE 50MCG/SPRAY SOLN,NASAL,16GM Active USE 2 SPRAYS IN NOSE TWICE A DAY SHAKE GENTLY BEFORE USE 3 Apr 11, 2021 [id number] J 2019 KESHAWN SHERMAN [facility] FLUTICASONE PROPIONATE 50MCG/SPRAY SOLN,NASAL,16GM Discontin ued USE 2 SPRAYS IN NOSE TWICE A DAY SHAKE GENTLY BEFORE USE 3 Dec 23, 2019 [id number] Jul 26, 2019 KESHAWN SHERMAN [facility] IBUPROFEN 600MG TAB Non- [place] TAKE ONE TABLET BY MOUTH THREE TIMES DAILY WITH MEALS NEEDED Non-VA Documented by: KESHAWN SHERMAN Docume nted at: UNIQUE [place] MAGNESIUM OXIDE 420MG TAB Active TAKE ONE TABLE T BY MOUTH TWICE A DAY TAKE WITH FOOD 100 Apr 11, 2021 [id number] Apr 10, 2020 KESHAWN SHERMAN [facility] MAGNESIUM OXIDE 420MG TAB Discontinued TAKE ONE TABLE T BY MOUTH TWICE A DAY TAKE WITH FOOD 100 Jan 14, 2020 [id number] Dec 29, 2019 KESHAWN SHERMAN [facility] OMEPRAZOLE 20MG CAP,EC Active TAKE 1 CAPSULE BY MOUTH ONCE DAILY FOR THE STOMACH 90 Dec 30, 2020 [id number] Apr 07, 2020 KESHAWN SHERMAN [facility] OMEPRAZOLE 20MG CAP,EC Discontinued TAKE 1 CAPSULE BY MOUTH ONCE DAILY FOR THE STOMACH 90 Dec 23, 2019 [id number] Oct 14, 2019 [facility] POT[facility]SI[facility] CHLORIDE 20MEQ TAB,SA (DISPERSIBLE) Active TAKE ONE TABLET BY MOUTH ONCE DAILY WITH FOOD 90 Dec 30, 2020 [id number] Apr 19, 2020 HAMLET SHERMANPLDEBBY [facility] POTASSIUM CHLORIDE 20MEQ TAB,SA (DISPERSIBLE) Discontinued TAKE ONE TABLET BY MOUTH ONCE DAILY WITH FOOD 90 Dec 23, 2019 [id number] Nov 11, 2019 KESHAWN JOHNSON [facility] RANITIDINE HCL 150MG TAB Discontinued TAKE TWO TABLET S BY MOUTH AT BEDTIME FOR STOMACH 180 Dec 23, 2019 [id number] Jul 26, 2019 KESHAWN SHERMAN [facility] VENLAFAXINE HCL 37.5MG 24HR CAP,SA Active TAKE 3 CAPSULES BY MOUTH EVERY MORNING FOR MOOD 270 Apr 08, 2021 [id number] Apr 07, 2020 KENA RAGSDALE [facility] VENLAFAXINE HCL 37.5MG 24HR CAP,SA Discontinued TAKE 3 CAPSULES BY MOUTH EVERY MORNING FOR MOOD 270 Jun 01, 2020 [id number] Dec 29, 2019 KENA RAGSDALE [facility] VENLAFAXINE HCL 75MG 24HR CAP,SA Discontinued TAKE ON E CAPSULE BY MOUTH EVERY MORNING FOR MOOD 90 Apr 13, 2020 [id number] Apr 13, 2019 [facility] Problems (Conditions): All historical and [...] BARAJAS Chronic kidney disease stage 3 Active 834353385 KESHAWN SHERMAN Corneal epithelial dystrophy Active 281076875 [facility] [place] [facility] Depression Active 51702466 KESHAWN SHERMAN Gastroesophageal reflux disease (SNOMED CT 873615490) Active 2355 44397 Nov 30, 2009 Entered By: FRANCO HERNANDEZ Comment: hiatal herniaFeb 2009 Entered By: FRANCO HERNANDEZ Comment: schiatzski ringFeb 2010 Entered By: FRANCO HERNANDEZ Comment: omeprazole and Zantac.Jun 24, 2012 Entered By: FRANCO HERNANDEZ Comment: GERD KESHAWN SHERMAN H/O: surgery Active 240043724 Aug 21, 2012 Entered By: FRANCO HERNANDEZ [...] HERNANDEZ History of polyp of colon Active 120147772 February 24, 2009 Entered By: FRANCO HERNANDEZ Comment: next colonoscopy 2008 Entered By: FRANCO HERNANDEZ Comment: tubulovilousNov 2011 Entered By: FRANCO HERNANDEZ Comment: AUG 20, 2012@14:08:51 Colonoscopy :Diverticulosis Aug 21, 2012 Entered By: FRANCO HERNANDEZ Comment: Repeat of Colonoscopy in 5 years 2017 Entered By: KESHAWN SHERMAN Comment: he refuses repeat colonoscopy KESHAWN SHERMAN Hyperlipidemia Active 00837222 KESHAWN SHERMAN Hypertension Active 92844888 [facility] Hypotonic bladder Active 526307028 Dec 28, 2014 Entered By: KESHAWN SHERMAN Comment: Inability to void, was seen March 2013 with catheter placedDec 28, 2014 Entered By: KESHAWN SHERMAN Comment: Now has permanent suprapubic catheterDec 28, 2014 Entered By: KESHAWN SHERMAN Comment: D/c terazosin KESHAWN SHERMAN Impaired glucose tolerance Active 3653933 Dec 31, 2013 Entered By: KESHAWN SHERMAN Comment: A1c 5.9% Dec Entered By: KESHAWN SHERMAN Comment: 5.9% December Entered By: KESHAWN SHERMAN Comment: A1c 5.9% December Entered By: KESHAWN SHERMAN Comment: a1c 6.3% December 2018 KESHAWN SHERMAN Lumbago Active 060013677 KESHAWN SHERMAN Monoclonal gammopathy of uncertain significance Active 168262039 KESHAWN SHERMAN Obesity Active 278.00 Nov 27, [...] AUTHOR: ALEXANDRA REYES COSIGNER: URGENCY: STATUS: [facility] [address] [place] [address] [place] [address] APR 05, [address] [place] [address] [place] [id number] Dear Patient: I am writing to inform you of the results of the test(s) you had done during or shortly after your last visit at the [facility]. The tests below were performed and [...] UA PH 8.00 PH 5 - 9 [70] UA PROTEIN 1+ QUAL Ref: NEG [70] UA GLUCOSE NEG QUAL NEG - TRACE [6770] UA KETONES NEG QUAL NEG - TRACE [70] UA BILI NEG QUAL Ref: NEG [70] UA BLOOD 1+ QUAL NEG - TRACE [6770] UA NITRITE 1+ QUAL. Neg. - Neg [70] UA UROBILINOGEN <2.0 mg/dL Ref: Normal: <2 mg/dL UA SPEC GRAV 1.013 1.005 - 1.035 [70] UA COLOR TIFFANY COLORLESS - YELLOW UA APPEARANCE EX TURBID Ref: CLEAR [70] UA WBC 21-50 H /HPF 0 - [...] (FV) 11.2 H K/cmm 2.4 - 7.6 [70] LY% (FV) 8.9 % Ref: SEE ABSOLUTE # [70] LY# (FV) 1.2 K/cmm 1.0 - 4.8 [70] MO% (FV) 6.8 % Ref: SEE ABSOLUTE # [70] MO# (FV) 0.9 K/cmm 0.1 - 1.0 [70] EO% (FV) 3.3 % Ref: SEE ABSOLUTE # [70] EO# (FV) 0.5 H K/cmm 0.0 - 0.4 [70] BA% (FV) 1.1 % Ref: SEE ABSOLUTE # [70] BA# (FV) 0.2 K/cmm 0.0 - 0.2 [70] Specimen Collection Date: Apr 05, 2020@07:35 Test [...] LDL CHOLESTEROL (CALCULATED) 118 Please call the [facility] at if you have any questions. Sincerely, ALEXANDRA REYES - ADVANCED PRACTICE NURSE ALEXANDRA REYES [facility]
--- OUTSIDE RECORDS SUMMARY | 2020-05-09 09:49 | XMS REPORT | Encounter Summary ---
Author Author Department [facility] MARGARET pereira Organization Department of [facility] Address [address] [place] [address] Phone Unavailable Care Team Providers Care White Kid Buffer Name Role Phone KESHAWN SHERMAN PCP Unavailable [...] PART A Aug 20, 2011 PART A [id number] 80A [phone] MARGARET LI PATIENT MEDICARE (WNR) MEDICARE (M) PART B Aug 20, 2011 PART B [id number] 80A [phone] GUILLERMOMARGARET PATIENT MEDICARE (WNR) MEDICARE (M) PART A Aug 20, 2011 PART A [id number] 80A [phone] GUILLERMOMARGARET PATIENT MEDICARE (WNR) MEDICARE (M) PART B Aug 20, 2011 PART B [id number] 80A [phone] GUILLERMOMARGARET PATIENT Selected Encounter This section includes the information on record at [place] for the Encounter. Date/Time Encounter Type Encounter Description Reason Provider Source May 05, 2020 03:09 PM Outpatient Encounter TELEPHONE ICD-1 0-CM F33.9 Major depressive disorder, recurrent, unspecified with Provider Comments: Depression ([facility] [id number]) EDILIA ALVES [facility] IHE Encounter Template Text not used by [place] Assessments - Encounter Diagnoses This section includes the primary and secondary diag noses documented for the Encounter. Date/Time Primary/Secondary Diagnosis Diagnosis Name Provider Source May 05, 2020 03:09 PM PRIMARY Major depressive disorder, recurrent, unspecified EDILIA ALVES [facility] Plan of Treatment: Future Appointments [...] appointme nts. The data comes from all [facility] facilities. Appointment Date/Time Appointment Type Appointment Facili ty Name May 16, 2020 11:00 AM AMBULATORY - NONE [facility] May 24, 2020 02:00 PM AMBULATORY - PSYCHIATRY [facility] Surgical Procedures: All associated to [...] Adverse Reactions (ADR s) on record with [place] for the patient. The data comes from [...] [facility], and 2) all medications recorded in the [place] medical record as "non-VA medic ations". Pharmacy terms refer to [place] pharmacy's work on prescriptions. [place] patient s [...] FOR BLOOD PRESSURE 90 Sep 24, 2020 [id number] Apr 07, 2020 V KESHAWN VAUGHN [facility] ATENOLOL 50MG/CHLORTHALIDONE 25MG TAB Discontinued TA KE 1 TABLET BY MOUTH EVERY MORNING FOR BLOOD PRESSURE 90 Oct 17, 2019 [id number] Jul 26, 2019 V KESHAWN VAUGHN [facility] ATORVASTATIN [place] 80MG TAB Active TAKE ONE-HALF T ABLET BY MOUTH AT BEDTIME FOR CHOLESTEROL - DO NOT TAKE WITH GRAPEFRUIT JUICE 45 Apr 11, 2021 [id number] Apr 10, 2020 KESHAWN SHERMAN [facility] ATORVASTATIN [place] 80MG TAB Discontinued TAKE ONE-HALF T ABLET BY MOUTH AT BEDTIME FOR CHOLESTEROL - DO NOT TAKE WITH GRAPEFRUIT JUICE 45 Dec 23, 2019 [id number] Oct 14, 2019 KESHAWN HSERMAN [facility] CARBOXYMETHYLCELLULOSE NA 0.5% SOLN,OPH INSTILL ONE DROP IN EACH EYE FOUR TIMES DAILY 15 Feb 10, 2020 [id number] Feb 09, 2019 [facility] [place] [facility] CARBOXYMETHYLCELLULOSE NA 1% GEL,OPH INS TILL ONE DROP TO EACH EYE TWICE A DAY 15 Feb 10, 2020 [id number] Feb 09, [address] [facility] CIPROFLOXACIN HCL 500MG TAB Active TAKE ONE TAB LET BY MOUTH TWICE A DAY - ANTIBIOTIC - TAKE UNTIL GONE *TAKE WITH FOOD AND AVOID TAKING WITH DAIRY OR PRODUCTS CONTAINING ALUMINUM, IRON, CALCIUM, OR MAGNESIUM* 14 J 2019 [id number] Apr 12, 2020 ALEXANDRA REYES [facility] FAMOTIDINE 40MG TAB Active TAKE ONE TABLET BY M OUTH ONCE DAILY FOR STOMACH/REFLUX 30 Apr 12, 2021 [id number] Apr 11, 2020 KESHAWN SHERMAN [facility] FAMOTIDINE 40MG TAB Discontinued TAKE ONE TABLET BY M OUTH ONCE DAILY FOR STOMACH/REFLUX 90 Sep 24, 2020 [id number] Dec 29, 2019 KESHAWN SHERMAN [facility] FLUTICASONE PROPIONATE 50MCG/SPRAY SOLN,NASAL,16GM Active USE 2 SPRAYS IN NOSE TWICE A DAY SHAKE GENTLY BEFORE USE 3 Apr 11, 2021 [id number] J 2019 KESHAWN SHERMAN [facility] FLUTICASONE PROPIONATE 50MCG/SPRAY SOLN,NASAL,16GM Discontin ued USE 2 SPRAYS IN NOSE TWICE A DAY SHAKE GENTLY BEFORE USE 3 Dec 23, 2019 [id number] Jul 26, 2019 KESHAWN SHERMAN [facility] IBUPROFEN 600MG TAB Non- [place] TAKE ONE TABLET BY MOUTH THREE TIMES DAILY WITH MEALS NEEDED Non-VA Documented by: KESHAWN SHERMAN Docume nted at: UNIQUE [place] MAGNESIUM OXIDE 420MG TAB Active TAKE ONE TABLE T BY MOUTH TWICE A DAY TAKE WITH FOOD 100 Apr 11, 2021 [id number] Apr 10, 2020 KESHAWN SHERMAN [facility] MAGNESIUM OXIDE 420MG TAB Discontinued TAKE ONE TABLE T BY MOUTH TWICE A DAY TAKE WITH FOOD 100 Jan 14, 2020 [id number] Dec 29, 2019 KESHAWN SHERMAN [facility] OMEPRAZOLE 20MG CAP,EC Active TAKE 1 CAPSULE BY MOUTH ONCE DAILY FOR THE STOMACH 90 Dec 30, 2020 [id number] Apr 07, 2020 KESHAWN SHERMAN [facility] OMEPRAZOLE 20MG CAP,EC Discontinued TAKE 1 CAPSULE BY MOUTH ONCE DAILY FOR THE STOMACH 90 Dec 23, 2019 [id number] Oct 14, 2019 KESHAWN SHERMAN [facility] POTASSIUM CHLORIDE 20MEQ TAB,SA (DISPERSIBLE) Active TAKE ONE TABLET BY MOUTH ONCE DAILY WITH FOOD 90 Dec 30, 2020 [id number] Apr 19, 2020 HAMLET SHERMAN [facility] POTASSIUM CHLORIDE 20MEQ TAB,SA (DISPERSIBLE) Discontinued TAKE ONE TABLET BY MOUTH ONCE DAILY WITH FOOD 90 Dec 23, 2019 [id number] Nov 11, 2019 KESHAWN JOHNSON [facility] RANITIDINE HCL 150MG TAB Discontinued TAKE TWO TABLET S BY MOUTH AT BEDTIME FOR STOMACH 180 Dec 23, 2019 [id number] Jul 26, [address] VENLAFAXINE HCL 37.5MG 24HR CAP,SA Active TAKE 3 CAPSULES BY MOUTH EVERY MORNING FOR MOOD 270 Apr 08, 2021 [id number] Apr 07, 2020 KENA RAGSDALE [facility] VENLAFAXINE HCL 37.5MG 24HR CAP,SA Discontinued TAKE 3 CAPSULES BY MOUTH EVERY MORNING FOR MOOD 270 Jun 01, 2020 [id number] Dec 29, 2019 KENA RAGSDALE [facility] VENLAFAXINE HCL 75MG 24HR CAP,SA Discontinued TAKE ON E CAPSULE BY MOUTH EVERY MORNING FOR MOOD 90 Apr 13, 2020 [id number] Apr 13, 2019 KESHAWN SHERMAN [facility] Problems (Conditions): All historical and current Section Date Range: From patient's date of to the date document was create d. This section includes a list of Problems (Conditions) know n to [place] for the patient. It includes both active and inacti ve problems (conditions). The data comes from all [place] treatment facilities. Problem Status Problem Code Date of Onset Date of Resolution Comm ent(s) Provider Source Allergic rhinitis * (ICD-9-CM 477.9) Active 477.9 FLSTEPHEN RASCON Chronic kidney disease stage 3 Active 947338400 KESHAWN SHERMAN Corneal epithelial dystrophy Active 830907511 [facility]ILLIAMS [facility] Depression Active 50379859 KESHAWN SHERMAN Gastroesophageal reflux disease (SNOMED CT 361419213) Active 2355 35922 Nov 30, 2009 Entered By: FRANCO HERNANDEZ Comment: hiatal herniaFeb 2009 Entered By: FRANCO HERNANDEZ Comment: schiatzski ringFeb 2010 Entered By: FRANCO HERNANDEZ Comment: omeprazole and Zantac.Jun 24, 2012 Entered By: FRANCO HERNANDEZ Comment: GERD KESHAWN SHERMAN H/O: surgery Active 909050697 Aug 21, 2012 Entered By: FRANCO HERNANDEZ [...] HERNANDEZ History of polyp of colon Active 217853317 February 24, 2009 Entered By: FRANCO HERNANDEZ Comment: next colonoscopy 2008 Entered By: FRANCO HERNANDEZ Comment: tubulovilousNov 2011 Entered By: FRANCO HERNANDEZ Comment: AUG 20, 2012@14:08:51 Colonoscopy :Diverticulosis Aug 21, 2012 Entered By: FRANCO HERNANDEZ Comment: Repeat of Colonoscopy in 5 years 2017 Entered By: KESHAWN SHERMAN Comment: he refuses repeat colonoscopy KESHAWN SHERMAN Hyperlipidemia Active 68855880 KESHAWN SHERMAN Hypertension Active 77149602 KESHAWN SHERMAN [facility] Hypotonic bladder Active 773844007 Dec 28, 2014 Entered By: KESHAWN SHERMAN Comment: Inability to void, was seen March 2013 with catheter placedDec 28, 2014 Entered By: KESHAWN SHERMAN Comment: Now has permanent suprapubic catheterDec 28, 2014 Entered By: KESHAWN SHERMAN Comment: D/c terazosin KESHAWN SHERMAN Impaired glucose tolerance Active 5398255 Dec 31, 2013 Entered By: KESHAWN SHERMAN Comment: A1c 5.9% Dec Entered By: KESHAWN SHERMAN Comment: 5.9% December Entered By: KESHAWN SHERMAN Comment: A1c 5.9% December Entered By: KESHAWN SHERMAN Comment: a1c 6.3% December 2018 KESHAWN SHERMAN Lumbago Active 018590246 KESHAWN SHERMAN Monoclonal gammopathy of uncertain significance Active 887039798 KESHAWN SHERMAN Obesity Active 278.00 Nov 27, [...] Hypertension Inactive 401.9 Dec 25, 2017 Sep 05, 20 12 Entered By: FRANCO HERNANDEZ Comment: [...] Encounter. Date/Time Encounter Note(s) Provider Source May 05, 2020 03:14 PM TELEPHONE ENCOUNTER NOTE: LOCAL TITLE: TELECARE STANDARD TITLE: TELEPHONE ENCOUNTER NOTE DATE OF NOTE: MAY 05, 2020@15:14 ENTRY DATE: MAY 05, 2020@15:14:19 AUTHOR: EDILIA ALVES COSIGNER: URGENCY: STATUS: COMPLETED PATIENT NAME: MARGARET LI SSN: [id number] FUTURE APPOINTMENTS: Apr@11:00 [facility] TM 1 PROVIDER May@14:00 JOP PSY [facility] PSYCH MD 1 PATIENT'S HOME PHONE: REASON FOR CALL:Call placed to [facility] for pre appt screening. FOLLOW UP: Considering the current COVID-19 pandemic, to help patients stay well, and follow the CDC's guidelines to stay home, we're reviewing all our upcoming appointments. Dr Bennett has reviewed your appointment scheduled for May 24, 2020 @1400 and would like to comple te this visit with you virtually instead of in-person. We can complete this by a video call, over the phone, or we can reschedule this out further for a traditional [id number]. requests [facility] appt. Coronavirus Disease 2019 (COVID-19) Screen The patient [...] do not have any new onset of diarrhea, nausea or vomiting. The patient reports they do not have any new onset of headache, loss of taste or loss of smell. Result: Screen is negative. Educated the regarding good handwashing, social distancing and avoid going out unless absolutely necessary to avoid possibilty of exposure to the Virus.[facility] voiced understanding and is agreeable with the plan. (Patient has been instructed to go to [facility] Emergency Room or to seek care elsewhere. FINANCIAL DISCLAIMER was read to caller ( ) Yes (x ) Not Applicable) FINANCIAL DISCLAIMER: "This is not an authorization for VA Payment" and also "Have hospital contact the nearest [place] Facility for transfer upon stabilization". /marilyn/ EDILIA ALVES RN PRIMARY CARE REGISTERED NURSE-LINDSE[place] Signed: 05/05/2020 15:17 EDILIA ALVES [facility]
--- OUTSIDE RECORDS SUMMARY | 2020-05-09 09:49 | XMS REPORT ---
Author Author Department of [facility] MARGARET pereira Department of [facility] Address [address] [place] [address] Phone Unavailable Care Team Providers Care Automotive Professional Name Role Phone KESHAWN SHERMAN PCP Unavailable [...] PART A Aug 20, 2011 PART A [id number] [phone] MARGARET LI PATIENT MEDICARE (WNR) MEDICARE (M) PART B Aug 20, 2011 PART B [id number] [phone] GUILLERMOMARGARET PATIENT MEDICARE (WNR) MEDICARE (M) PART A Aug 20, 2011 PART A [id number] [phone] GUILLERMOMARGARET PATIENT MEDICARE (WNR) MEDICARE (M) PART B Aug 20, 2011 PART B [id number] [id number] [phone] GUILLERMOMARGARET PATIENT Selected Encounter This section includes the information on record at CT for the Encounter. Date/Time Encounter Type Encounter Description Reason Provider Source May 07, 2020 05:29 PM Outpatient Encounter COMMUNITY CARE CONSULT KESHAWN SHERMAN [facility] IHE Encounter Template Text not used by CT Assessments - Encounter Diagnoses No Data Provided [...] appointme nts. The data comes from all [facility]. Appointment Date/Time Appointment Type Appointment Facili [...] 10:05 AM V16 TOBACCO USE SCREEN UNIQUE [facility] Tobacco Use History This section includes a history of the smoking, or tobacco -related health factors, that were collected on or before the date of the Encoun ter. The data comes from the CT facility where the Encounter took place. Date/Time Smoking Status/Tobacco Use Comment Facil it Mar 29, 2020 10:05 AM [place]-TOBACCO [place] USED [place] [facility] Nov 03, 2018 09:51 AM V16 TOBACCO USE SCREEN [place] Nov 03, 2018 09:[address]-TOBACCO NEVER USED [place] Oct 24, 2017 10:25 AM V16 LIFETIME NON-TOBACCO USER [place] Oct 24, 2017 10:25 AM V16 TOBACCO USE SCREEN UN[facility]QUE [place] Dec 25, 2016 01:31 PM V16 LIFETIME NON[place]BACCO [place] Dec 25, 2016 01:31 PM V16 TOBACCO USE SCREEN [place] Jan 03, 2016 08:51 AM V16 LIFETIME NON-TOBACCO USER [place] Jan 03, 2016 08:51 AM V16 TOBACCO USE [place]CREEN [place] Dec 27, 2014 04:28 PM V16 LIFETIME NON-[place]BAC[place] Dec 27, 2014 04:28 PM V16 TOBACCO USE SCREEN [place] Dec 29, 2013 03:57 PM V16 LIFETIME NON-TOBACCO USER [place] Dec 29, 2013 03:57 PM V16 TOBACCO USE SCREEN [place] Jun 24, 2012 12:25 PM V16 LIFETIME NON-TOBACCO USER [place] Jun 24, 2012 12:25 PM V16 TOBACCO USE SCREEN [place] Dec 18, 2010 01:24 PM V16 LIFETIME NON-TOBACCO USER [place] Dec 18, 2010 01:24 PM V16 TOBACCO USE SCREEN [place] Nov 30, 2009 01:24 PM V16 LIFETIME NON-TOBACCO USER [place] Nov 30, 2009 01:24 PM V16 TOBACCO USE SCREEN [place] Nov 25, 2008 01:22 PM V16 LIFETIME NON-TOBACCO USER [place] Nov 25, 2008 01:22 PM V16 TOBACCO USE SCREEN [place]IQUE [place] Jan 08, 2008 12:49 PM V16 LIFETIME NON-TOBACCO USER [place] Jan 08, 2008 12:49 PM V16 TOBACCO USE SCREEN [place] DE [place] Apr 28, 2007 01:53 PM V16 TOBACCO CESSATION >7 YEARS FARIDAT TEVFAVIAN [place] Apr 28, 2007 01:53 PM V16 TOBACCO USE SCREEN UNIQUE [place] Sep 29, 2006 01:44 PM V16 TOBACCO CESSATION > 12 MONTHS FA CARRIE [place] Sep 29, 2006 01:44 PM V16 TOBACCO USE SCREEN MARIA DE JESUSCARRIE [place] May 21, 2001 11:04 AM LIFETIME NON-TOBACCO USER FARIDAJERED LEATHA [place] Nov 20, 2000 01:09 PM LIFETIME NON-TOBACCO USER FARIDATTEVIL LEATHA [place] Advance Directives: All historical and current No Data Provided for This Section Allergies and Adverse Reactions (ADRs): All historical and current Section Date Range: From patient's date of to the date document was create d. This section includes Allergies and Adverse Reactions (ADR s) on record with CT for the patient. The data comes from [...] "non-VA medic ations". Pharmacy terms refer to CT pharmacy's work on prescriptions. VA patient s [...] FOR BLOOD PRESSURE 90 Sep 24, 2020 [id number] Apr 07, 2020 KESHAWN JOHNSON [facility] ATENOLOL 50MG/CHLORTHALIDONE 25MG TAB Discontinued TA KE 1 TABLET BY MOUTH EVERY MORNING FOR BLOOD PRESSURE 90 Oct 17, 2019 [id number] Jul 26, 2019 KESHAWN JOHNSON [facility] ATORVASTATIN CA 80MG TAB Active TAKE ONE-HALF T ABLET BY MOUTH AT BEDTIME FOR CHOLESTEROL - DO NOT TAKE WITH GRAPEFRUIT JUICE 45 Apr 11, 2021 [id number] Apr 10, 2020 KESHAWN SHERMAN [facility] ATORVASTATIN CA 80MG TAB Discontinued TAKE ONE-HALF T ABLET BY MOUTH AT BEDTIME FOR CHOLESTEROL - DO NOT TAKE WITH GRAPEFRUIT JUICE 45 Dec 23, 2019 [id number] Oct 14, 2019 KESHAWN SHERMAN [facility] CARBOXYMETHYLCELLULOSE NA 0.5% SOLN,OPH INSTILL ONE DROP IN EACH EYE FOUR TIMES DAILY 15 Feb 10, 2020 [id number] Feb 09, [address] [facility] CARBOXYMETHYLCELLULOSE NA 1% GEL,OPH INS TILL ONE DROP TO EACH EYE TWICE A DAY 15 Feb 10, 2020 [id number] Feb 09, [address] [facility] CIPROFLOXACIN HCL 500MG TAB Active TAKE ONE TAB LET BY MOUTH TWICE A DAY - ANTIBIOTIC - TAKE UNTIL GONE *TAKE WITH FOOD AND AVOID TAKING WITH DAIRY OR PRODUCTS CONTAINING ALUMINUM, IRON, CALCIUM, OR MAGNESIUM* 14 J 2019 [id number] Apr 12, 2020 ALEXANDRA REYES [facility] FAMOTIDINE 40MG TAB Active TAKE ONE TABLET BY M OUTH ONCE DAILY FOR STOMACH/REFLUX 30 Apr 12, 2021 [id number] Apr 11, 2020 KESHAWN SHERMAN [facility] FAMOTIDINE 40MG TAB Discontinued TAKE ONE TABLET BY M OUTH ONCE DAILY FOR STOMACH/REFLUX 90 Sep 24, 2020 [id number] Dec 29, 2019 KESHAWN SHERMAN [facility] FLUTICASONE PROPIONATE 50MCG/SPRAY SOLN,NASAL,16GM Active USE 2 SPRAYS IN NOSE TWICE A DAY SHAKE GENTLY BEFORE USE 3 Apr 11, 2021 [id number] J 2019 KESHAWN SHERMAN [facility] FLUTICASONE PROPIONATE 50MCG/SPRAY SOLN,NASAL,16GM Discontin ued USE 2 SPRAYS IN NOSE TWICE A DAY SHAKE GENTLY BEFORE USE 3 Dec 23, 2019 [id number] Jul 26, 2019 KESHAWN SHERMAN [facility] IBUPROFEN 600MG TAB Non- VA TAKE ONE TABLET BY MOUTH THREE TIMES DAILY WITH MEALS NEEDED Non-VA Documented by: KESHAWN SHERMANume nted at: UNIQUE [place] MAGNESIUM OXIDE 420MG TAB Active TAKE ONE TABLE T BY MOUTH TWICE A DAY TAKE WITH FOOD 100 Apr 11, 2021 [id number] Apr 10, 2020 [facility] MAGNESI[facility] OXIDE 420MG TAB Discontinued TAKE ONE TABLE T BY MOUTH TWICE A DAY TAKE WITH FOOD 100 Jan 14, 2020 [id number] Dec 29, 2019 [facility] OMEPRAZOLE 20MG CAP,EC Active TAKE 1 CAPSULE BY MOUTH ONCE DAILY FOR THE STOMACH 90 Dec 30, 2020 [id number] Apr 07, 2020 [facility] OMEPR[facility]LE 20MG CAP,EC Discontinued TAKE 1 CAPSULE BY MOUTH ONCE DAILY FOR THE STOMACH 90 Dec 23, 2019 [id number] Oct 14, 2019 [facility] POTASSIUM CHLORIDE 20MEQ TAB,SA (DISPERSIBLE) Active TAKE ONE TABLET BY MOUTH ONCE DAILY WITH FOOD 90 Dec 30, 2020 [id number] Apr 19, 2020 HAMLET SHERMAN [facility] POTASSIUM CHLORIDE 20MEQ TAB,SA (DISPERSIBLE) Discontinued TAKE ONE TABLET BY MOUTH ONCE DAILY WITH FOOD 90 Dec 23, 2019 [id number] Nov 11, 2019 [facility] RANITIDINE HCL 150MG TAB Discontinued TAKE TWO TABLET S BY MOUTH AT BEDTIME FOR STOMACH 180 Dec 23, 2019 [id number] Jul 26, 2019 [facility] VENLAFAXINE HCL 37.5MG 24HR CAP,SA Active TAKE 3 CAPSULES BY MOUTH EVERY MORNING FOR MOOD 270 Apr 08, 2021 [id number] Apr 07, 2020 KENA RAGSDALE [facility] VENLAFAXINE HCL 37.5MG 24HR CAP,SA Discontinued TAKE 3 CAPSULES BY MOUTH EVERY MORNING FOR MOOD 270 Jun 01, 2020 [id number] Dec 29, 2019 KENA RAGSDALE [facility] VENLAFAXINE HCL 75MG 24HR CAP,SA Discontinued TAKE ON E CAPSULE BY MOUTH EVERY MORNING FOR MOOD 90 Apr 13, 2020 [id number] Apr 13, 2019 KESHAWN SHERMAN [facility] Problems (Conditions): All [...] BARAJAS Chronic kidney disease stage 3 Active [id number] KESHAWN SHERMAN Corneal epithelial dystrophy Active [id number] [facility] Depression Active 43443553 KESHAWN SHERMAN [facility] [place] Gastroesophageal reflux disease (SNOMED CT [id number]) Active [id number] Nov 30, 2009 Entered By: FRANCO HERNANDEZ Comment: hiatal herniaFeb 2009 Entered By: FRANCO HERNANDEZ Comment: schiatzski ringFeb 2010 Entered By: FRANCO HERNANDEZ Comment: omeprazole and Zantac.Jun 24, 2012 Entered By: FRANCO HERNANDEZ Comment: GERD KESHAWN SHERMAN H/O: surgery Active [id number] Aug 21, 2012 Entered By: FRANCO HERNANDEZ [...] HERNANDEZ History of polyp of colon Active 335474675 February 24, 2009 Entered By: FRANCO HERNANDEZ Comment: next colonoscopy 2008 Entered By: FRANCO HERNANDEZ Comment: tubulovilousNov 2011 Entered By: FRANCO HERNANDEZ Comment: AUG 20, 2012@14:08:51 Colonoscopy :Diverticulosis Aug 21, 2012 Entered By: FRANCO HERNANDEZ Comment: Repeat of Colonoscopy in 5 years 2017 Entered By: KESHAWN SHERMAN Comment: he refuses repeat colonoscopy KESHAWN SHERMAN Hyperlipidemia Active 46411450 KESHAWN SHERMAN Hypertension Active 08165883 KESHAWN SHERMAN Hypotonic bladder Active 754361172 Dec 28, 2014 Entered By: KESHAWN SHERMAN Comment: Inability to void, was seen March 2013 with catheter placedDec 28, 2014 Entered By: KESHAWN SHERMAN Comment: Now has permanent suprapubic catheterDec 28, 2014 Entered By: KESHAWN SHERMAN Comment: D/c terazosin KESHAWN SHERMAN Impaired glucose tolerance Active 1978207 Dec 31, 2013 Entered By: KESHAWN SHERMAN Comment: A1c 5.9% Dec Entered By: KESHAWN SHERMAN Comment: 5.9% December Entered By: KESHAWN SHERMAN Comment: A1c 5.9% December Entered By: KESHAWN SHERMAN Comment: a1c 6.3% December 2018 KESHAWN SHERMAN Lumbago Active 108264044 KESHAWN SHERMAN Monoclonal gammopathy of uncertain significance Active 496932357 KESHAWN SHERMAN Obesity Active 278.00 Nov 27, 2010 E ntered By: FRANCO HERNANDEZ Comment: bmi 36Dec 18, 2010 Entered By: FRANCO HERNANDEZ Comment: bmi 34 FRANCO HERNANDEZ Tinnitus Active 388.30 FONT[place] Benign Prostatic Hypertrophy Inactive 799.9 Dec 25, [...] Encounter. Date/Time Encounter Note(s) Provider Source May 07, 2020 05:29 PM NONVA NOTE: LOCAL TITLE: COMMUNITY CARE-COORDINATION PLAN STANDARD TITLE: NONVA NOTE DATE OF NOTE: MAY 07, 2020@17:29 ENTRY DATE: MAY 07, 2020@17:29:05 AUTHOR: MICHELE MILLARD COSIGNER: URGENCY: STATUS: COMPLETED [place] self-presented to community emergency facility Emergency Notification Intake Date Presenting to the Facility: [facility] Hospital Name: Hospital: [facility] Address: City: [place] State: [place] Zip Code: Chief complaint: LOST SENSE OF BALANCE Primary Diagnosis: Patient Admitted? No Community Facility Point of Contact: Name: N/A Phone: N/A ##################################################### Notification ID: [id number] Status: Closed - Approved for 1703 Auth #: [id number] ###################################################### MED RECS REQST [facility]ED TO [facility] /marilyn/ MICHELE MILLARD [facility] Advanced Medical Support Asst Signed: 05/07/2020 17:33 Receipt Acknowledged By: * AWAITING SIGNATURE * CEE TRENT * AWAITING SIGNATURE * HERO [place] DA[place] [facility]
--- OUTSIDE RECORDS SUMMARY | 2020-05-09 09:49 | XMS REPORT | Encounter Summary ---
Author Author Department [facility] MARGARET pereira Department [facility] Address [address] [place] [address] Phone Unavailable Care Team Providers Care Manganese Breaker Name Role Phone KESHAWN SHERMAN PCP Unavailable [...] PART A Aug 20, 2011 PART A [id number] [phone] GUILLERMOMARGARET PATIENT MEDICARE (WNR) MEDICARE (M) PART B Aug 20, 2011 PART B [id number] 80A [phone] GUILLERMOMARGARET PATIENT MEDICARE (WNR) MEDICARE (M) PART A Aug 20, 2011 PART A [id number] 80A [phone] MARGARET LI PATIENT MEDICARE (WNR) MEDICARE (M) PART B Aug 20, 2011 PART B [id number] 80A [phone] MARGARET LI PATIENT Selected Encounter This section includes the information on record at [place] for the Encounter. Date/Time Encounter Type Encounter Description Reason Provider Source Apr 07, 2020 01:31 PM Outpatient Encounter PRIMARY CARE/MEDICINE [facility] IHE Encounter Template Text not used by [place] Assessments - Encounter Diagnoses No Data Provided for This Section Plan of Treatment: Future Appointments (+ 6 months) and Future Tests (+/- 45 day s) The Plan of Treatment section includes future care activities for the patient fr om all [place] treatment facilities. This section includes future appointments and fu ture orders which are active, pending or scheduled. Future Appointments This section includes appointments that were scheduled t o occur 6 months from the date of the Encounter, up to a maximum of 20 appointme nts. The data comes from all [facility]. Appointment Date/Time Appointment Type Appointment Facili ty Name Apr 12, 2020 09:30 AM [facility] May 05, 2020 03:09 PM AMBULATORY - PS[facility]CHIATRY [facility] May 16, 2020 11:00 AM AMBULATORY - NONE [facility] May 24, 2020 02:00 PM AMBULATORY - PSYCHIATRY [facility] Surgical Procedures: All associated to the encounter No Data Provided for This Section Lab Results: +/- 30 days of the encounter This section includes the Chemistry and Hematology Lab R esults on record with [place] for the patient. Radiology Reports and Pathology Report s are provided separately, in subsequent sections. Lab Results This section contains the Chemistry/Hematology Results ysabel t were resulted 30 days before or 30 days after the date of the Encounter. Date/Time Source Result Type Result - Unit Interpretation Reference Range Comment Apr 05, 2020 07:35 AM [facility] MAGNESIUM Specimen Type: SERUM No comment entered. MAGNESIUM (FV) 1.9 mg/dL 1.8-2.4 Apr 05, 2020 07:35 AM [facility] TSH (FV) Specimen Type: SERUM No comment entered. TSH (FV) 1.41 mcIU/mL 0.45-5.33 Apr 05, 2020 07:35 AM [facility] RENAL+LIVER PROFILE Specimen Type: SERUM No comment [...] H .61-1.24 Apr 05, 2020 07:35 AM [facility] CBC Specimen Type: BLOOD No comment entered. [...] K/cmm 0.0-0.2 Apr 05, 2020 07:35 AM [facility] B12 Specimen Type: SERUM No comment entered. VITAMIN B12 (FV) 243 pg/mL 180-914 Apr 05, 2020 07:35 AM [facility] GLYCO HGB A1C Specimen Type: BLOOD No comment entered. Glyco Hgb A1C 6.3 % H 4.2-5.8 Apr 05, 2020 07:35 AM [facility] LIPID PROFILE Specimen Type: SERUM No comment entered. CHOLESTEROL, TOTAL (FV) 186 mg/dL 118-20 0 TRIGLYCERIDE (FV) 114 mg/dL <150 LDL CHOLESTEROL (CALCULATED) 118 HDL CHOLESTEROL (FV) 45 mg/dL >40 Apr 05, 2020 07:35 AM [facility] URINALYSIS Specimen Type: URINE No comment entered. [...] H NEG-74 Apr 05, 2020 07:35 AM [facility] MICROSCOPIC URINALYSIS Specimen Type: URINE Comment: Specimen [...] and tobacco- related health factors from the [place] facility where the Encounter took place. Current Smoking Status This section includes the most current smoking, or tobacco -related health factor, from the [place] facility where the Encounter took place. Date/Time Current Smoking Status Comment Facility Mar 29, 2020 10:05 AM V16 TOBACCO USE SCREEN UNIQUE [facility] Tobacco Use History This section includes a history of the smoking, or tobacco -related health factors, that were collected on or before the date of the Encoun ter. The data comes from the [place] facility where the Encounter took place. Date/Time Smoking Status/Tobacco Use Comment [facility] Mar 29, 2020 10:05 AM [place]-TOBACCO NEVER USED UNIQUE Millan [facility] Nov 03, 2018 09:51 AM V16 TOBACCO USE SCREEN UNIQUE [place] Nov 03, 2018 09:51 AM [place]CO NEVER USED UNIQUE [place] Oct 24, 2017 [...] [place]BACCO [place]CREEN [place] Dec 18, 2010 01:24 PM V16 LIFETIME NON-TOBACCO USER [place] Dec 18, 2010 01:24 PM V16 TOBACCO USE [place]CREEN [place] Nov 30, 2009 01:24 PM V16 LIFETIME NON-TOBACCO USER [place] Nov 30, 2009 01:24 PM V16 TOBACCO USE [place]CREEN [place] Nov 25, 2008 01:22 PM V16 LIFETIME NON-TOBACCO USER [place] Nov 25, 2008 01:22 PM V16 TOBACCO USE [place]CREEN [place] Jan 08, 2008 12:49 PM V16 LIFETIME NON-TOBACCO USER [place] Jan 08, 2008 12:49 PM V16 TOBACCO [place]CREEN [place] Apr 28, 2007 01:53 PM V16 TOBACCO CESSATION >7 YEARS [place] Apr 28, 2007 01:53 PM V16 [...] patient. The data comes from a ll [place] treatment facilities. It does not list Allergies/ADRs [...] pharmacy in the last [address] [facility], and 2) all medications recorded in the VA medical record as "non-VA medic ations". Pharmacy terms refer to VA pharmacy's work on prescriptions. VA patient s are advised to take their medications as instructed by their health care team. The data comes from all [place] treatment facilities. Glossary of Pharmacy Terms:Active = A prescription that can be filled at the local [place] pharmacy.Active: On Hold = An active prescription that will not be filled until pharmacy resolves the issue.Active: Susp = An active prescription that is not scheduled to be filled yet.Clinic Order = A medication received during a visit to a [place] clinic or emergency department (currently not available).Discontinued [...] FOR BLOOD PRESSURE 90 Sep 24, 2020 [id number] Apr 07, 2020 V KESHAWN VAUGHN [facility] ATENOLOL 50MG/CHLORTHALIDONE 25MG TAB Discontinued TA KE 1 TABLET BY MOUTH EVERY MORNING FOR BLOOD PRESSURE 90 Oct 17, 2019 [id number] Jul 26, 2019 V KESHAWN VAUGHN [facility] ATORVASTATIN CA 80MG TAB Active TAKE ONE-HALF T ABLET BY MOUTH AT BEDTIME FOR CHOLESTEROL - DO NOT TAKE WITH GRAPEFRUIT JUICE 45 Apr 11, 2021 [id number] Apr 10, 2020 KESHAWN SHERMAN [facility] ATORVASTATIN CA 80MG TAB Discontinued TAKE ONE-HALF T ABLET BY MOUTH AT BEDTIME FOR CHOLESTEROL - DO NOT TAKE WITH GRAPEFRUIT JUICE 45 Dec 23, 2019 [id number] Oct 14, 2019 KESHAWN SHERMAN [facility] CARBOXYMETHYLCELLULOSE NA 0.5% SOLN,OPH INSTILL ONE DROP IN EACH EYE FOUR TIMES DAILY 15 Feb 10, 2020 [id number] Feb 09, 2019 MAGEN CORONA [facility] CARBOXYMETHYLCELLULOSE NA 1% GEL,OPH INS TILL ONE DROP TO EACH EYE TWICE A DAY 15 Feb 10, 2020 [id number] Feb 09, 2019 MAGEN CORONA [facility] CIPROFLOXACIN HCL 500MG TAB Active TAKE ONE TAB LET BY MOUTH TWICE A DAY - ANTIBIOTIC - TAKE UNTIL GONE *TAKE WITH FOOD AND AVOID TAKING WITH DAIRY OR PRODUCTS CONTAINING ALUMINUM, IRON, CALCIUM, OR MAGNESIUM* 14 J 2019 [id number] Apr 12, 2020 ALEXANDRA REYES [facility] FAMOTIDINE 40MG TAB Active TAKE ONE TABLET BY M OUTH ONCE DAILY FOR STOMACH/REFLUX 30 Apr 12, 2021 [id number] Apr 11, 2020 KESHAWN SHERMAN [facility] FAMOTIDINE 40MG TAB Discontinued TAKE ONE TABLET BY M OUTH ONCE DAILY FOR STOMACH/REFLUX 90 Sep 24, 2020 [id number] Dec 29, 2019 KESHAWN SHERMAN [facility] FLUTICASONE PROPIONATE 50MCG/SPRAY SOLN,NASAL,16GM Active USE 2 SPRAYS IN NOSE TWICE A DAY SHAKE GENTLY BEFORE USE 3 Apr 11, 2021 [id number] J 2019 [facility] Documented by: KESHAWN SHERMAN Docume nted at: [facility] MAGNESIUM OXIDE 420MG TAB Active TAKE ONE TABLE T BY MOUTH TWICE A DAY TAKE WITH FOOD 100 Apr 11, 2021 [id number] Apr 10, 2020 [facility] MAGNESIUM OXIDE 420MG TAB Discontinued TAKE ONE TABLE T BY MOUTH TWICE A DAY TAKE WITH FOOD 100 Jan 14, 2020 [id number] Dec 29, 2019 KESHAWN SHERMANFAVIAN [facility] OMEPRAZOLE 20MG CAP,EC Active TAKE 1 CAPSULE BY MOUTH ONCE DAILY FOR THE STOMACH 90 Dec 30, 2020 [id number] Apr 07, 2020 [facility] O[facility] 20MG CAP,EC Discontinued TAKE 1 CAPSULE BY MOUTH ONCE DAILY FOR THE STOMACH 90 Dec 23, 2019 [id number] Oct 14, 2019 KESHAWN SHERMAN [facility] POTASSIUM CHLORIDE 20MEQ TAB,SA (DISPERSIBLE) Active TAKE ONE TABLET BY MOUTH ONCE DAILY WITH FOOD 90 Dec 30, 2020 [id number] Apr 19, 2020 HAMLET SHERMAN [facility] POTASSIUM CHLORIDE 20MEQ TAB,SA (DISPERSIBLE) Discontinued TAKE ONE TABLET BY MOUTH ONCE DAILY WITH FOOD 90 Dec 23, 2019 [id number] Nov 11, 2019 [facility] RANITIDINE HCL 150MG TAB Discontinued TAKE TWO TABLET S BY MOUTH AT BEDTIME FOR STOMACH 180 Dec 23, 2019 [id number] Jul 26, 2019 KESHAWN SHERMANFAVIAN [place] VENLAFAXINE HCL 37.5MG 24HR CAP,SA Active TAKE 3 CAPSULES BY MOUTH EVERY MORNING FOR MOOD 270 Apr 08, 2021 [id number] Apr 07, 2020 KENA RAGSDALE [facility] VENLAFAXINE HCL 37.5MG 24HR CAP,SA Discontinued TAKE 3 CAPSULES BY MOUTH EVERY MORNING FOR MOOD 270 Jun 01, 2020 [id number] Dec 29, 2019 [facility] VENLAFAXINE HCL 75MG 24HR CAP,SA Discontinued TAKE ON E CAPSULE BY MOUTH EVERY MORNING FOR MOOD 90 Apr 13, 2020 [id number] Apr 13, 2019 KESHAWN SHERMAN [facility] Problems (Conditions): All historical and current Section Date Range: From patient's date of to the date document was create d. This section includes a list of Problems (Conditions) know n to [place] for the patient. It includes both active and inacti ve problems (conditions). The data comes from all [place] treatment facilities. Problem Status Problem Code Date of Onset Date of Resolution Comm ent(s) Provider Source Allergic rhinitis * (ICD-9-CM 477.9) Active 477.9 STEPHEN BARAJAS Chronic kidney disease stage 3 Active 092727844 KESHAWN SHERMAN Corneal epithelial dystrophy Active 670189956 [facility] [place] [facility] Depression Active 09263338 KESHAWN SHERMAN Gastroesophageal reflux disease (SNOMED CT 671503497) Active 2355 62348 Nov 30, 2009 Entered By: FRANCO HERNANDEZ Comment: hiatal herniaFeb 2009 Entered By: FRANCO HERNANDEZ Comment: schiatzski ringFeb 2010 Entered By: FRANCO HERNANDEZ Comment: omeprazole and Zantac.Jun 24, 2012 Entered By: FRANCO HERNANDEZ Comment: GERD KESHAWN SHERMAN H/O: surgery Active 118745268 Aug 21, 2012 Entered By: FRANCO HERNANDEZ [...] of skin cancer from neck, Nov 2014, EKSHAWN Muro Hearing loss Active 389.9 FRANCO HERNANDEZ History of polyp of colon Active 439763484 February 24, 2009 Entered By: FRANCO HERNANDEZ Comment: next colonoscopy 2008 Entered By: FRANCO HERNANDEZ Comment: tubulovilousNov 2011 Entered By: FRANCO HERNANDEZ Comment: AUG 20, 2012@14:08:51 Colonoscopy :Diverticulosis Aug 21, 2012 Entered By: FRANCO HERNANDEZ Comment: Repeat of Colonoscopy in 5 years 2017 Entered By: KESHAWN SHERMAN Comment: he refuses repeat colonoscopy KESHAWN SHERMAN Hyperlipidemia Active 71192501 KESHAWN SEHRMAN Hypertension Active 91455505 KESHAWN SHERMAN Hypotonic bladder Active 372610178 Dec 28, 2014 Entered By: KESHAWN SHERMAN Comment: Inability to void, was seen March 2013 with catheter placedDec 28, 2014 Entered By: KESHAWN SHERMAN Comment: Now has permanent suprapubic catheterDec 28, 2014 Entered By: KESHAWN SHERMAN Comment: D/c terazosin KESHAWN SHERMAN Impaired glucose tolerance Active 4174630 Dec 31, 2013 Entered By: KESHAWN SHERMAN Comment: A1c 5.9% Dec Entered By: KESHAWN SHERMAN Comment: 5.9% December Entered By: KESHAWN SHERMAN Comment: A1c 5.9% December Entered By: KESHAWN SHERMAN Comment: a1c 6.3% December 2018 KESHAWN SHERMAN Lumbago Active 285000091 KESHAWN SHERMAN Monoclonal gammopathy of uncertain significance Active 251653136 KESHAWN SHERMAN Obesity Active 278.00 Nov 27, [...] URGENCY: STATUS: COMPLETED ADMINISTRATIVE NOTE Has ADDENDA called today for request to have medications refilled/renewed. 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 /neeta HOPKINS Signed: 04/07/2020 13:37 04/07/2020 ADDENDUM STATUS: COMPLETED Spoke with Nano at extension [phone] for relay of information /neeta HOPKINS Signed: 04/07/2020 13:41 CATARINO FITZPATRICK [facility]
--- OUTSIDE RECORDS SUMMARY | 2020-05-09 09:49 | XMS REPORT | Encounter Summary ---
Author Author Department [facility] MARGARET pereira Department [facility] Address [address] [place] [address] Phone Unavailable Care Team Providers Care Hvac Maintenance Technician Name Role Phone KESHAWN SHERMAN PCP [...] PART A Aug 20, 2011 PART A [id number] 80A [phone] GUILLERMOMARGARET PATIENT MEDICARE (WNR) MEDICARE (M) PART B Aug 20, 2011 PART B [id number] 80A [phone] GUILLERMOMARGARET PATIENT MEDICARE (WNR) MEDICARE (M) PART A Aug 20, 2011 PART A [id number] 80A [phone] GUILLERMOMARGARET PATIENT MEDICARE (WNR) MEDICARE (M) PART B Aug 20, 2011 PART B [id number] 80A [phone] MARGARET LI PATIENT Selected Encounter This section includes the information on record at [place] for the Encounter. Date/Time Encounter Type Encounter Description Reason Provider Source Apr 05, 2020 12:26 PM Outpatient En[facility] IHE Encounter Template Text not used by [place] Assessments - Encounter Diagnoses No Data Provided for This Section Plan of Treatment: Future Appointments (+ 6 months) and Future Tests (+/- 45 day s) The Plan of Treatment section includes future care activities for the patient fr om all [place] treatment facilities. This section includes future appointments and fu ture orders which are active, pending or scheduled. Future Appointments This section includes appointments that were scheduled t o occur 6 months from the date of the Encounter, up to a maximum of 20 appointme nts. The data comes from all [facility]. Appointment Date/Time Appointment Type Appointment Facili ty Name Apr 12, 2020 09:30 AM [facility] May 05, 2020 03:09 PM AMBULATORY - PS[facility]CHIATRY [facility] May 16, 2020 11:00 AM AMBULATORY - NONE [facility] May 24, 2020 02:00 PM AMBULATORY - PSYCHIATRY [facility] Surgical Procedures: All associated to the encounter No Data Provided for This Section Lab Results: +/- 30 days of the encounter This section includes the Chemistry and Hematology Lab R esults on record with [place] for the patient. Radiology Reports and Pathology [...] 10:05 AM V16 TOBACCO USE SCREEN UNIQUE [facility] Tobacco Use History This section includes a history of the smoking, or tobacco -related health factors, that were collected on or before the date of the Encoun ter. The data comes from the [place] facility where the Encounter took place. Date/Time Smoking Status/Tobacco Use Comment [facility] Mar 29, 2020 10:05 AM [place]-TOBACCO NEVER USED UNIQUE Millan [facility] Nov 03, 2018 09:51 AM V16 TOBACCO USE SCREEN UNIQUE [place] Nov 03, 2018 09:51 AM [place]-TOBACCO NEVER USED UNIQUE Millan Oct 24, 2017 [...] [place] pharmacy in the last 15 m [facility], and 2) all medications recorded in [...] FOR BLOOD PRESSURE 90 Sep 24, 2020 [id number] Apr 07, 2020 V KESHAWN VAUGHN [facility] ATENOLOL 50MG/CHLORTHALIDONE 25MG TAB Discontinued TA KE 1 TABLET BY MOUTH EVERY MORNING FOR BLOOD PRESSURE 90 Oct 17, 2019 [id number] Jul 26, 2019 V KESHAWN VAUGHN [facility] ATORVASTATIN CA 80MG TAB Active TAKE ONE-HALF T ABLET BY MOUTH AT BEDTIME FOR CHOLESTEROL - DO NOT TAKE WITH GRAPEFRUIT JUICE 45 Apr 11, 2021 [id number] Apr 10, 2020 KESHAWN SHERMAN [facility] ATORVASTATIN CA 80MG TAB Discontinued TAKE ONE-HALF T ABLET BY MOUTH AT BEDTIME FOR CHOLESTEROL - DO NOT TAKE WITH GRAPEFRUIT JUICE 45 Dec 23, 2019 [id number] Oct 14, 2019 KESHAWN SHERMAN [facility] CARBOXYMETHYLCELLULOSE NA 0.5% SOLN,OPH INSTILL ONE DROP IN EACH EYE FOUR TIMES DAILY 15 Feb 10, 2020 [id number] Feb 09, 2019 MAGEN COR[place] [facility] CARBOXYMETHYLCELLULOSE NA 1% GEL,OPH INS TILL ONE DROP TO EACH EYE TWICE A DAY 15 Feb 10, 2020 [id number] Feb 09, 2019 MAGEN [place] [facility] CIPROFLOXACIN HCL 500MG TAB Active TAKE ONE TAB LET BY MOUTH TWICE A DAY - ANTIBIOTIC - TAKE UNTIL GONE *TAKE WITH FOOD AND AVOID TAKING WITH DAIRY OR PRODUCTS CONTAINING ALUMINUM, IRON, CALCIUM, OR MAGNESIUM* 14 J 2019 [id number] Apr 12, 2020 AWILDA REYES [facility] FAMOTIDINE 40MG TAB Active TAKE ONE TABLET BY M OUTH ONCE DAILY FOR STOMACH/REFLUX 30 Apr 12, 2021 [id number] Apr 11, 2020 KESHAWN SHERMAN [facility] FAMOTIDINE 40MG TAB Discontinued TAKE ONE TABLET BY M OUTH ONCE DAILY FOR STOMACH/REFLUX 90 Sep 24, 2020 [id number] Dec 29, 2019 KESHAWN SHERMAN [facility] FLUTICASONE PROPIONATE 50MCG/SPRAY SOLN,NASAL,16GM Active USE 2 SPRAYS IN NOSE TWICE A DAY SHAKE GENTLY BEFORE USE 3 Apr 11, 2021 [id number] J 2019 KESHAWN SHERMAN [facility] [...] KESHAWN SHERMAN Docume nted at: [facility] MAGNESIUM OXIDE 420MG TAB Active TAKE ONE TABLE T BY MOUTH TWICE A DAY TAKE WITH FOOD 100 Apr 11, 2021 [id number] Apr 10, 2020 [facility] MAGNESIUM OXIDE 420MG TAB Discontinued TAKE ONE TABLE T BY MOUTH TWICE A DAY TAKE WITH FOOD 100 Jan 14, 2020 [id number] Dec 29, 2019 KESHAWN SHERMANFAVIAN [facility] OMEPRAZOLE 20MG CAP,EC Active TAKE 1 CAPSULE BY MOUTH ONCE DAILY FOR THE STOMACH 90 Dec 30, 2020 [id number] Apr 07, 2020 [facility] OMEPRAZOLE 20MG CAP,EC Discontinued TAKE 1 CAPSULE BY MOUTH ONCE DAILY FOR THE STOMACH 90 Dec 23, 2019 [id number] Oct 14, 2019 KESHAWN SHERMAN [facility] POTASSIUM CHLORIDE 20MEQ TAB,SA (DISPERSIBLE) Active TAKE ONE TABLET BY MOUTH ONCE DAILY WITH FOOD 90 Dec 30, 2020 [id number] Apr 19, 2020 HAMLET SHERMAN [facility] POTASSIUM CHLORIDE 20MEQ TAB,SA (DISPERSIBLE) Discontinued TAKE ONE TABLET BY MOUTH ONCE DAILY WITH FOOD 90 Dec 23, 2019 [id number] Nov 11, 2019 [facility] RANITIDINE HCL 150MG TAB Discontinued TAKE TWO TABLET S BY MOUTH AT BEDTIME FOR STOMACH 180 Dec 23, 2019 [id number] Jul 26, 2019 KESHAWN SHERMANFAVIAN [place] VENLAFAXINE HCL 37.5MG 24HR CAP,SA Active TAKE 3 CAPSULES BY MOUTH EVERY MORNING FOR MOOD 270 Apr 08, 2021 [id number] Apr 07, 2020 KENA RAGSDALE [facility] VENLAFAXINE HCL 37.5MG 24HR CAP,SA Discontinued TAKE 3 CAPSULES BY MOUTH EVERY MORNING FOR MOOD 270 Jun 01, 2020 [id number] Dec 29, 2019 [facility] VENLAFAXINE HCL 75MG 24HR CAP,SA Discontinued TAKE ON E CAPSULE BY MOUTH EVERY MORNING FOR MOOD 90 Apr 13, 2020 [id number] Apr 13, 2019 KESHAWN SHERMAN [facility] Problems (Conditions): All historical and [...] BARAJAS Chronic kidney disease stage 3 Active 957241221 KESHAWN SHERMAN Corneal epithelial dystrophy Active 376051664 [facility] [place] [facility] Depression Active 19315143 KESHAWN SHERMAN Gastroesophageal reflux disease (SNOMED CT 951961637) Active 2355 91113 Nov 30, 2009 Entered By: FRANCO HERNANDEZ Comment: hiatal herniaFeb 2009 Entered By: FRNACO HERNANDEZ Comment: schiatzski ringFeb 2010 Entered By: FRANCO HERNANDEZ Comment: omeprazole and Zantac.Jun 24, 2012 Entered By: FRANCO HERNANDEZ Comment: GERD KESHAWN SHERMAN H/O: surgery Active 330418762 Aug 21, 2012 Entered By: FRANCO HERNANDEZ [...] HERNANDEZ History of polyp of colon Active 105679902 February 24, 2009 Entered By: FRANCO HERNANDEZ Comment: next colonoscopy 2008 Entered By: FRANCO HERNANDEZ Comment: tubulovilousNov 2011 Entered By: FRANCO HERNANDEZ Comment: AUG 20, 2012@14:08:51 Colonoscopy :Diverticulosis Aug 21, 2012 Entered By: FRANCO HERNANDEZ Comment: Repeat of Colonoscopy in 5 years 2017 Entered By: KESHAWN SHERMAN Comment: he refuses repeat colonoscopy KESHAWN SHERMAN Hyperlipidemia Active 80963023 KESHAWN SHERMAN Hypertension Active 61392764 KESHAWN SHERMAN Hypotonic bladder Active 149953278 Dec 28, 2014 Entered By: KESHAWN SHERMAN Comment: Inability to void, was seen March 2013 with catheter placedDec 28, 2014 Entered By: KESHAWN SHERMAN Comment: Now has permanent suprapubic catheterDec 28, 2014 Entered By: KESHAWN SHERMAN Comment: D/c terazosin KESHAWN SHERMAN Impaired glucose tolerance Active 0645960 Dec 31, 2013 Entered By: KESHAWN SHERMAN Comment: A1c 5.9% Dec Entered By: KESHAWN SHERMAN Comment: 5.9% December Entered By: KESHAWN SHERMAN Comment: A1c 5.9% December Entered By: KESHAWN SHERMAN Comment: a1c 6.3% December 2018 KESHAWN SHERMAN Lumbago Active 853642109 KESHAWN SHERMAN Monoclonal gammopathy of uncertain significance Active 746993535 KESHAWN SHERMAN Obesity Active 278.00 Nov 27, [...] patient to call team one at the [facility]. Will plan on sending a letter or having the piece goods clerk reschedule the patient for [facility]. Awilda MCGINNIS, Clinical Nurse Specialist [facility] Ext. [phone] /es/ AWILDA REYES APN [facility]IAN[facility] Signed: 04/05/2020 12:28 Receipt Acknowledged By: * AWAITING SIGNATURE * TIFFANY SHERWOOD NANCY J [facility]
--- OUTSIDE RECORDS SUMMARY | 2020-05-09 09:50 | XMS REPORT | Continuity of Care Document ---
Author Organization Unknown Address Unknown Phone Unavailable Allergies Active Description Code Type Severity Reaction Onset Reported/Identified Relationship to Patient Clinical Status Yes Penicillins [id number] Drug Aller gy Unknown N/A 05/05/2013 Yes Penicillins [id number] Drug Aller gy Unknown FROM CHILDHOOD 05/02/2020 Medications There is no data. Problems Date [...] 12/01/2014 FABIANA CUELLAR MD Ot V74.8 12/01/2014 MCGOWAN DO, CAT D Ot 173. 41 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 12/01/2014 CAT MCGOWAN DO D Ot 401. 9 HYPERTENSION NOS 12/01/2014 CAT [...] Ot 596.5 4 07/11/2015 POLO SALAS, FABIANA A Ot 788.2 0 07/11/2015 POLO SALAS, FABIANA A Ot V72.6 3 07/11/2015 POLO SALAS, FABIANA Whitman Ot V74.8 07/11/2015 GELLENDER DO, SHARON A Ot 805.2 07/11/2015 GELLENDER DO, SHARON A Ot E000.8 07/11/2015 GELLENDER DO, SHARON Whitman Ot E888.9 07/11/2015 GELLENDER DO, SHARON A [...] URINE NOS 03/27/2016 FABIANA CUELLAR MD, Ot V72.6 3 PRE-PROCEDURAL LABORATORY EXAMINATION 03/27/2016 FABIANA CUELLAR MD, Ot V74.8 SCREEN-BACTERIAL DIS NEC 03/27/2016 MADY SHARON MINA Ot 805.2 FX DORSAL VERTEBRA-CLOSE 03/27/2016 MADY SHARON MINA Ot E000.8 OTHER EXTERNAL CAUSE STATUS 03/27/2016 TONYARENATEMARCO SHARON MINA Ot E888.9 FALL NOS 03/27/2016 MADY MINASHARON Ot S22.009A UNSP FRACTURE OF UNSP THORACIC VERTEBRA, 03/27/2016 MADY MINA SHARON Whitman Ot W19.XXXA UNSPECIFIED FALL, INITIAL ENCOUNTER 03/27/2016 MADY MINA SHARON Whitman Ot Y99.8 OTHER EXTERNAL CAUSE STATUS 09/13/2018 IVETTE SALAS, ULISES Perales Ot E78.00 PURE HYPERCHOLESTEROLEMIA, UNSPECIFIED 09/13/2018 ULISES STEELE MD Ot F32.9 MAJOR DEPRESSIVE DISORDER, SINGLE EPISOD 09/13/2018 ULISES STEELE MD Ot F41.9 ANXIETY DISORDER, UNSPECIFIED 09/13/2018 ULISES STEELE MD Ot I10 ESSENTIAL (PRIMARY) HYPERTENSION 09/13/2018 ULISES STEELE MD Ot K21.9 GASTRO-ESOPHAGEAL REFLUX DISEASE WITHOUT 09/13/2018 ULISES STEELE MD Ot T83.028A DISPLACEMENT OF OTHER URINARY CATHETER, 09/13/2018 ULISES STEELE MD Ot Z79.51 JAIL (CURRENT) USE OF INHALED STERO 09/13/2018 ULISES STEELE MD, Ot Z85.828 PERSONAL HISTORY OF OTHER MALIGNANT NEOP 09/13/2018 ULISES STEELE MD Ot Z88.0 ALLERGY STATUS TO PENICILLIN 09/13/2018 ULISES STEELE MD, Ot Z98.890 OTHER SPECIFIED POSTPROCEDURAL STATES 09/13/2018 FABIANA CUELLAR MD Ot 596.5 4 NEUROGENIC BLADDER, NOT OTHERWISE SPECIF 09/13/2018 FABIANA CUELLAR MD Ot 788.2 0 RETENTION OF URINE NOS 09/13/2018 FABIANA CUELLAR MD Ot V72.6 3 PRE-PROCEDURAL LABORATORY EXAMINATION 09/13/2018 FABIANA CUELLAR MD Ot V74.8 SCREEN-BACTERIAL DIS NEC 09/13/2018 MADY MINASHARON Ot 805.2 FX DORSAL VERTEBRA-CLOSE 09/13/2018 MADY MINASHARON J Carlos Ot E000.8 OTHER EXTERNAL CAUSE STATUS 09/13/2018 MADY MINA SHARON Whitman Ot E888.9 FALL NOS 09/13/2018 [...] CATHETER, 09/15/2018 ULISES STEELE MD Ot Z79.51 JAIL (CURRENT) USE OF INHALED STERO 09/15/2018 ULISES STEELE MD, Ot Z85.828 PERSONAL HISTORY OF OTHER MALIGNANT NEOP 09/15/2018 ULISES STEELE MD Ot Z88.0 ALLERGY STATUS TO PENICILLIN 09/15/2018 ULISES STEELE MD Ot Z98.890 OTHER SPECIFIED POSTPROCEDURAL STATES 02/19/2019 [...] 02/23/2019 CAT MCGOWAN DO Ot Z79.899 OTHER DATABASE ADMINISTRATION MANAGER (CURRENT) DRUG THERAPY 02/23/2019 CAT MCGOWAN DO [...] 03/04/2019 CAT MCGOWAN DO Ot Z79.899 OTHER JAIL (CURRENT) DRUG THERAPY 03/04/2019 CAT MCGOWAN DO [...] Ot K63. 5 POLYP OF COLON 03/04/2019 JUAN M MINACAT Ot Z12. 11 ENCOUNTER FOR SCREENING FOR MALIGNANT NE 03/04/2019 JUAN M MINACAT Ot Z68. 38 BODY MASS INDEX (BMI) 38.0-38.9, ADULT 03/04/2019 JUAN M MINACAT Ot Z79.899 OTHER DATABASE ADMINISTRATION MANAGER (CURRENT) DRUG THERAPY 03/04/2019 JUAN M MINACAT Ot Z87. 19 PERSONAL HISTORY OF OTHER DISEASES OF 03/04/2019 JUAN M MINACAT Ot Z93. 50 UNSPECIFIED CYSTOSTOMY STATUS 03/08/2019 MADY MINASHARON Ot 805.2 FX DORSAL VERTEBRA-CLOSE 03/08/2019 MADY MINASHARON Ot E000.8 OTHER EXTERNAL CAUSE STATUS 03/08/2019 MADY MINASHARON Ot E888.9 FALL NOS 03/08/2019 MADY MINASHARON Ot S22.009A UNSP FRACTURE OF UNSP THORACIC VERTEBRA, 03/08/2019 MADY MINASHARON Ot W19.XXXA UNSPECIFIED FALL, INITIAL ENCOUNTER 03/08/2019 MADY MINASHARON Ot Y99.8 OTHER EXTERNAL CAUSE STATUS 03/14/2019 [...] Ot Z98.890 OTHER SPECIFIED POSTPROCEDURAL STATES 03/18/2019 EYADOTJERRYIS Ot E78.00 PURE HYPERCHOLESTEROLEMIA, UNSPECIFIED 03/18/2019 JERRY MENDEZIS Ot F32.9 MAJOR DEPRESSIVE DISORDER, SINGLE EPISOD 03/18/2019 EYADOTJERRYIS Ot F41.9 ANXIETY DISORDER, UNSPECIFIED 03/18/2019 BERNOT JOSE Ot I10 ESSENTIAL (PRIMARY) HYPERTENSION 03/18/2019 JERRY MENDEZIS Ot K21.9 GASTRO-ESOPHAGEAL REFLUX DISEASE WITHOUT 03/18/2019 BERNOT JOSE Ot T83.038A LEAKAGE OF OTHER URINARY CATHETER, INITI 03/18/2019 BERNOT JOSE Ot Z85.828 PERSONAL HISTORY OF OTHER MALIGNANT NEOP 03/18/2019 BERNOTJERRYIS Ot Z86.010 PERSONAL HISTORY OF COLONIC POLYPS 03/18/2019 BERNJERRY FREDERICKIS Ot Z87.19 PERSONAL HISTORY OF OTHER DISEASES OF TH 03/18/2019 JERRY MENDEZIS Ot Z88.0 ALLERGY STATUS TO PENICILLIN 03/18/2019 EYADOT JOSE Ot Z98.890 OTHER SPECIFIED POSTPROCEDURAL STATES 03/18/2019 BERNOT JOSE Ot E78.00 PURE HYPERCHOLESTEROLEMIA, UNSPECIFIED 03/18/2019 JERRY MENDEZIS Ot F32.9 MAJOR DEPRESSIVE DISORDER, SINGLE EPISOD 03/18/2019 JERRY MENDEZIS Ot F41.9 ANXIETY DISORDER, UNSPECIFIED 03/18/2019 BERNOT JOSE Ot I10 ESSENTIAL (PRIMARY) HYPERTENSION 03/18/2019 JERRY MENDEZIS Ot K21.9 GASTRO-ESOPHAGEAL REFLUX DISEASE WITHOUT 03/18/2019 BERNOT JOSE Ot T83.038A LEAKAGE OF OTHER URINARY CATHETER, INITI 03/18/2019 JERRY MENDEZIS Ot Z85.828 PERSONAL HISTORY OF OTHER MALIGNANT NEOP 03/18/2019 EYADOTJERRYIS Ot Z86.010 PERSONAL HISTORY OF COLONIC POLYPS 03/18/2019 JERRY MENDEZIS Ot Z87.19 PERSONAL HISTORY OF OTHER DISEASES OF TH 03/18/2019 JERRY MENDEZIS Ot Z88.0 ALLERGY STATUS TO PENICILLIN 03/18/2019 BERNOT JOSE Ot Z98.890 OTHER SPECIFIED POSTPROCEDURAL STATES 05/16/2019 IVETTE SALAS, ULISES Perales Ot E78.00 PURE HYPERCHOLESTEROLEMIA, UNSPECIFIED 05/16/2019 ULISES STEELE MD Ot F32.9 MAJOR DEPRESSIVE DISORDER, SINGLE EPISOD 05/16/2019 ULISES STEELE MD Ot F41.9 ANXIETY DISORDER, UNSPECIFIED 05/16/2019 ULISES STEELE MD Ot I10 ESSENTIAL (PRIMARY) HYPERTENSION 05/16/2019 ULISES STEELE MD Ot K21.9 GASTRO-ESOPHAGEAL REFLUX DISEASE WITHOUT 05/16/2019 ULISES STEELE MD Ot T83.098A [facility] COMPL OF OTHER URINARY CATHETER, [place] 05/16/2019 ULISES STEELE MD Ot Z85.828 PERSONAL HISTORY OF OTHER MALIGNANT NEOP 05/16/2019 ULISES STEEEL MD Ot Z86.010 PERSONAL HISTORY OF COLONIC [...] WITHOUT 05/19/2019 ULISES STEELE MD Ot T83.098A [facility] COMPL OF OTHER URINARY CATHETER, [place] 05/19/2019 ULISES STEELE MD Ot Z85.828 PERSONAL HISTORY OF OTHER MALIGNANT NEOP 05/19/2019 ULISES STEELE MD Ot Z86.010 PERSONAL HISTORY OF COLONIC POLYPS 05/19/2019 ULISES STEELE MD Ot Z88.0 ALLERGY STATUS TO PENICILLIN 05/02/2020 SONIA DO, NICOLE K Ot E78.00 PURE HYPERCHOLESTEROLEMIA, UNSPECIFIED 05/02/2020 SONIA DO, NICOLE K Ot F32.9 MAJOR DEPRESSIVE DISORDER, SINGLE EPISOD 05/02/2020 SONIA DO, NICOLE K Ot F41.9 ANXIETY DISORDER, UNSPECIFIED 05/02/2020 NICOLE SCOTT DO Ot I10 ESSENTIAL (PRIMARY) HYPERTENSION 05/02/2020 NICOLE SCOTT DO Ot K21.9 GASTRO-ESOPHAGEAL REFLUX DISEASE WITHOUT 05/02/2020 NICOLE SCOTT DO Ot N39.0 URINARY TRACT INFECTION, SITE NOT SPECIF 05/02/2020 NICOLE SCOTT DO Ot R42 DIZZINESS AND GIDDINESS 05/02/2020 NICOLE SCOTT DO Ot T83.511 A I/I REACT D/T INDWELLING URETHRAL CATHET 05/02/2020 NICOLE SCOTT DO Ot Z85.828 PERSONAL HISTORY OF OTHER MALIGNANT NEOP 05/02/2020 NICOLE SCOTT DO Ot Z88.0 ALLERGY STATUS TO PENICILLIN Procedures There is no data. Results Test Result Range Complete blood count (CBC) with automate d white blood cell (WBC) differential - 04/30/20 08:15 Blood leukocytes automated count (number/volume) 12.8 10*3/uL 4.3-11.0 Blood erythrocytes automated count (number/volume) 3.95 10*6/uL 4.35-5.85 Venous blood hemoglobin measurement (mass/volume) 11.2 g/dL 13.3-17.7 Blood hematocrit (volume fraction) 34 % 40-54 Automated erythrocyte mean corpuscular volume 86 [ foz_us] 80-99 Automated erythrocyte mean corpuscular h emoglobin (mass per erythrocyte) 28 pg 25-34 Automated erythrocyte mean corpuscular h emoglobin concentration measurement (mass/volume) 33 g/dL 32-36 Automated erythrocyte distribution width ratio 13. 1 % 10.0- 14.5 Automated blood platelet count (count/volume) 353 10*3/uL 130-400 Automated blood platelet mean volume measurement 10.0 [foz_us] 7.4-10.4 Automated blood neutrophils/100 leukocytes 79 % 42-75 Automated blood lymphocytes/100 leukocytes 10 % 12-44 Blood monocytes/100 leukocytes 8 % 0-12 Automated blood eosinophils/100 leukocytes 3 % 0-10 Automated blood basophils/100 leukocytes 0 % 0-10 Blood neutrophils automated count (number/volume) 10.1 10*3 1.8-7.8 Blood lymphocytes automated count (number/volume) 1.3 10*3 1.0-4.0 Blood monocytes automated count (number/volume) 1. 0 10*3 0.0-1.0 Automated eosinophil count 0.3 10*3/uL 0 .0-0.3 Automated blood basophil count (count/volume) 0.0 10*3/uL 0.0-0.1 Comprehensive metabolic panel - 04/30/20 08:15 Serum or plasma sodium measurement (moles/volume) 135 mmol/L 135-145 Serum or plasma potassium measurement (moles/volume) 3.6 mmol/L 3.6-5.0 Serum or plasma chloride measurement (moles/volume) 99 mmol/L 98-107 Carbon dioxide 23 mmol/L 21-32 Serum or plasma anion gap determination (moles/volume) 13 mmol/L 5-14 Serum or plasma urea nitrogen measurement (mass/volume ) 18 mg/dL 7-18 Serum or plasma creatinine measurement (mass/volume) 1.36 mg/dL 0.60-1.30 Serum or plasma urea nitrogen/creatinine mass ratio 13 NRG Serum or plasma creatinine measurement w ith calculation of estimated glomerular filtration rate 51 NRG Serum or plasma glucose measurement (mass/volume) 125 mg/dL 70-105 Serum or plasma calcium measurement (mass/volume) 8.7 mg/dL 8.5-10.1 Serum or plasma total bilirubin measurement (mass/volu me) 0.3 mg/dL 0.1-1.0 Serum or plasma alkaline phosphatase diego surement (enzymatic activity/volume) 99 U/L 40-136 Serum or plasma aspartate aminotransfera se measurement (enzymatic activity/volume) 17 U/L 5-34 Serum or plasma alanine aminotransferase measurement (enzymatic activity/volume) 14 U/L 0-55 Serum or plasma protein measurement (mass/volume) 7.1 g/dL 6.4-8.2 Serum or plasma albumin measurement (mass/volume) 3.6 g/dL 3.2-4.5 CALCIUM CORRECTED 9.0 mg/dL 8.5-10.1 Magnesium - 04/30/20 08:15 Magnesium 2.0 mg/dL 1.6-2.4 Serum or plasma creatine kinase measurem ent (enzymatic activity/volume) - 04/30/20 08:15 Serum or plasma creatine kinase measurem ent (enzymatic activity/volume) 66 U/L 30-200 Serum or plasma creatine kinase MB measu rement (enzymatic activity/volume) - 04/30/20 08:15 Serum or plasma creatine kinase MB measu rement (enzymatic activity/volume) 1.0 ng/mL <6.6 PT panel in platelet poor plasma by coag ulation assay - 04/30/20 08:15 Prothrombin time (PT) in platelet poor plasma by coagu lation assay 12.8 s 12.2-14.7 INR in platelet poor plasma or blood by coagulation as say 0.9 0.8-1.4 Activated partial thromboplastin time (a PTT) in platelet poor plasma bycoagulation assay - 04/30/20 08:15 Activated partial thromboplastin time (a PTT) in platelet poor plasma bycoagulation assay 30 s 24-35 Serum or plasma troponin i.cardiac measu rement (mass/volume) - 04/30/20 08:15 Serum or plasma troponin i.cardiac measurement (mass/v olume) < ng/mL <0.028 Myoglobin, serum - 04/30/20 08:15 Myoglobin, serum 46.3 ng/mL 10.0-92.0 Blood lactic acid measurement (moles/vol ume) - 04/30/20 08:15 Blood lactic acid measurement (moles/volume) 1.34 mmol/L 0.50-2.00 Bacterial blood culture - 04/30/20 08:15 Bacterial blood culture NG NRG Capillary blood glucose measurement by g lucometer (mass/volume) - 04/30/20 08:45 Capillary blood glucose measurement by glucometer (mas s/volume) 120 mg/dL 70-110 Complete urinalysis with reflex to cultu re - 04/30/20 09:02 Urine color determination YELLOW NRG Urine clarity determination TURBID NR G Urine pH measurement by test strip 7.5 5-9 Specific gravity of urine by test strip 1.015 1.016-1.022 Urine protein assay by test strip, semi-quantitative TRACE NEGATIVE Urine glucose detection by automated test strip NE GATIVE NEGATIVE Erythrocytes detection in urine sediment by light micr oscopy TRACE-L NEGATIVE Urine ketones detection by automated test strip NE GATIVE NEGATIVE Urine nitrite detection by test strip NEGATIVE NEGATIVE Urine total bilirubin detection by test strip NEGA TIVE NEGATIVE Urine urobilinogen measurement by automated test strip (mass/volume) 0.2 mg/dL < = 1.0 Urine leukocyte esterase detection by dipstick 3+ NEGATIVE Automated urine sediment erythrocyte cou nt by microscopy (number/high power field) [HPF] NRG Automated urine sediment leukocyte count by microscopy (number/high power field) [HPF] NRG Bacteria detection in urine sediment by light microsco py NEGATIVE NRG Squamous epithelial cells detection in u rine sediment by light microscopy NONE NRG Crystals detection in urine sediment by light microsco py NONE NRG Casts detection in urine sediment by light microscopy NONE NRG Mucus detection in urine sediment by light microscopy NEGATIVE NRG Complete urinalysis with reflex to culture YES NRG Bacterial urine culture - 04/30/20 09:02 Bacterial urine culture [id number] NRG COLONY COUNT >100,000/ML NRG SUSCEPTIBILITY SUSCEPTIBILITY REPORTED 05-04-20 46 NRG MRSA SCREEN MDRO/MULTI-DRUG RESISTANT ORGANISM NRG RAPID ID CONTACT PRECAUTIONS NRG Dirithromycin susceptibility test by dis k diffusion - 04/30/20 09:02 Gentamicin susceptibility test by minimum inhibitory c oncentration R NRG Trimethoprim/sulfamethoxazole susceptibi lity test by minimum inhibitoryconcentration S NRG Levofloxacin susceptibility test by minimum inhibitory concentration R NRG Ceftriaxone susceptibility test by minimum inhibitory concentration R NRG Ciprofloxacin susceptibility test by minimum inhibitor y concentration R NRG Cefepime susceptibility test by minimum inhibitory con centration 16 NRG Bacterial blood culture - 04/30/20 10:33 Bacterial blood culture NG NRG Coronavirus SARS-CoV-2 SO 2018 0 08:36 Coronavirus Ab [Units/volume] in Serum Negative Negative Encounters ACCT No. Visit Date/Time Discharge Status Pt. Type Provider Facility Loc./Unit Complaint [id number] 09/08/2018 13:00:00 09/08/2018 23:59:5 9 CLS Outpatient CELESTINO LAC, [facility] [id number] 05/04/2020 07:15:00 020 10:32:00 DIS Outpatient CAT MCGOWAN DO [facility] PREOP HISTORY POLYPS [id number] 04/30/2020 08:09:00 020 12:18:00 DIS Outpatient NICOLE SCOTT DO [facility] ER DIZZY [id number] 05/16/2019 07:46:00 019 09:21:00 DIS Emergency ULISES STEELE MD [facility] ER CATH REPLACEMEN T [id number] 03/14/2019 15:38:00 019 16:18:00 DIS Emergency JOSE MENDEZ [facility] ER NEEDS CATHETER PLACED [id number] 02/23/2019 11:01:00 019 16:20:00 DIS Outpatient ACT MCGOWAN DO [facility] ENDO HX POLYPS/GERD [id number] 02/19/2019 10:39:00 019 13:48:00 DIS Outpatient CAT MCGOWAN DO [facility] PREOP COLONOSCOPY/EGD [id number] 09/13/2018 07:55:00 018 08:30:00 DIS Emergency ULISES STEELE MD [facility] ER CATHETER FELL O UT [id number] 02/08/2016 09:57:00 016 18:10:00 DIS Outpatient CORRINE MOSQUEDA MD [facility] SDC SQUAMOUS CELL CANCER [id number] 02/07/2016 09:25:00 016 11:03:00 DIS Outpatient CORRINE MOSQUEDA MD [facility] PREOP SQUAMOUS CELL CANCER [id number] 02/27/2015 08:11:00 015 09:44:00 DIS Emergency NICOLE SCOTT DO a [facility] ER LOWER GROIN PAIN/UTI SY MPTOMS [id number] 02/21/2015 14:52:00 015 23:59:59 CLS Outpatient SHARON EARL DO [facility] RAD FELL HURT LOW ER BACK, NOT GETTING BETTER [id number] 12/01/2014 07:01:00 015 12:20:00 DIS Outpatient CAT MCGOWAN DO [facility] SDC LESION ON RIGHT SIDE OF NECK [id number] 06/23/2013 06:35:00 013 11:40:00 DIS Outpatient FABIANA CUELLAR MD [facility] NEUROGENIC BLADDER [id number] 06/18/2013 10:05:00 23:59:59 CLS Outpatient FABIANA CUELLAR MD [facility] PREOP NEUROGENIC BLADDER [id number] 04/29/2013 23:50:00 18:00:00 DIS Inpatient SHARON EARL DO [facility] 4TH URINARY TRACT INFECTION,MENTAL STATUS CHANGE [id number] 05/12/2020 08:45:00 P EN Preadmit YVONNE DAVIDSON MD [facility] CATARACT RIGHT EYE [id number] 05/09/2020 09:40:00 P EN Preadmit CAT MCGOWAN DO [facility] ENDO HISTORY OF POLYPS. [id number] 05/08/2020 07:35:[address] Outpatient YVONNE DAVIDSON MD [facility] PREOP CATARACT RIGHT EYE
--- NOTE | 2020-05-09 09:55 | Progress Note-Post Operative ---
Post-Operative Progess Note Surgeon (s)/Purchase Price Analyst (s) Surgeon CAT MCGOWAN DO Purchase Price Analyst: na Pre-Operative Diagnosis hx polyps Post-Operative Diagnosis ascending colon polyp, diverticulosis Procedure & Operative Findings Date of Procedure 05/09/20 Procedure Performed/Findings colonoscopy c hot bx polypectomy Anesthesia Type per director security risk management Estimated Blood Loss Estimated blood loss (mL): none Specimens/Packing Specimens Removed ascending colon polyp CAT MCGOWAN DO May 09, 2020 09:54
--- NOTE | 2020-05-09 09:56 | Discharge Inst-Simple/Standard ---
Discharge Inst-Standard Patient Instructions/Follow Up Plan of Care/Instructions/FU: 2 weeks Cash Activity as Tolerated: Yes Discharge Diet: Regular Diet (high fiber) CAT MCGOWAN DO May 09, 2020 09:55
[2020-05-09 10:00] VITALS: BP 116/70
[2020-05-09 10:25] VITALS: BP 126/68
[2020-05-09 10:36] VITALS: BP 126/68
--- NOTE | 2020-05-09 11:02 | OPERATIVE REPORT ---
DATE OF SERVICE: 05/09/2020 PREOPERATIVE DIAGNOSIS: History of colon polyps. POSTOPERATIVE DIAGNOSES: Diverticulosis and ascending colon polyp. SURGEON: Cat Castrejon DO. ANESTHESIA: Per LITURGICAL MUSIC DIRECTOR. PROCEDURES PERFORMED: Colonoscopy with hot biopsy polypectomy x1. INDICATIONS FOR PROCEDURE: The patient is a 74-year-old male needing colonoscopy for reevaluation due to history of polyps. He understands the risks and benefits of procedure and wished to proceed with procedure. Consent was signed in the chart. DESCRIPTION OF PROCEDURE: The patient was taken to the endoscopy suite and placed in the left lateral recumbent position. Timeout was performed. Digital rectal exam was performed. There were no palpable polyps, masses or ulcerations. Scope was inserted in the rectum and advanced all the way to cecum with minimal difficulty. Prep was adequate with irrigation and suction. Scope was then slowly retracted back. There were no polyps, masses or ulcerations within the cecum and in the ascending colon, a small polyp was present, which hot biopsy polypectomy was performed. Scope was then continued slowly retracted back. No polyps, masses or ulcerations within the remainder of the ascending, transverse, descending and sigmoid colon. Moderate amount of diverticulosis throughout the entire colon. Scope once in the rectum was inserted and retracted multiple times, noting no other pathology. Scope was then slowly retracted until completely removed. The patient tolerated the procedure well without any complications. He was taken to the recovery room in a stable condition. RECOMMENDATIONS: The patient will follow up with pathology in two weeks. I recommend high fiber diet due to diverticulosis. The patient will need repeat colonoscopy in 5 years. Any issues before that be seen at that time. Job ID: [id number] DocumentID: [id number] Dictated Date: 05/09/2020 09:58:20 Self Propelled Mining Machine Operator Date: 05/09/2020 11:01:52 Dictated By: CAT CASTREJON DO
--- NOTE | 2020-05-09 13:34 | Anesthesia-General Post-Op ---
MAC Patient Condition Mental Status/LOC: Same as Preop Cardiovascular: Satisfactory Nausea/Vomiting: Absent Respiratory: Satisfactory Pain: Controlled Complications: Absent Post Op Complications Complications None Follow Up Care/Instructions Patient Instructions None needed. Anesthesiology Discharge Order Discharge Order Patient is doing well, no complaints, stable vital signs, no apparent adverse anesthesia problems. No complications reported per nursing. DORY NEVES CRNA May 09, 2020 13:34
== END 2020-05-09 10:43 | disposition home or self-care (01) ==
LOC: ENDO 08:33
PROVIDERS: ATTEND Surgery
DX: Z12.11 Encounter for screening for malignant neoplasm of colon (principal); D12.2 Benign neoplasm of ascending colon; K57.30 Diverticulosis of large intestine without perforation or abscess without bleeding; I10 Essential (primary) hypertension; E78.5 Hyperlipidemia, unspecified; K21.9 Gastro-esophageal reflux disease without esophagitis; F41.9 Anxiety disorder, unspecified; F32.9 Major depressive disorder, single episode, unspecified; Z79.899 Other long term (current) drug therapy; Z88.0 Allergy status to penicillin; Z86.010 Personal history of colon polyps; Z80.9 Family history of malignant neoplasm, unspecified

== ENCOUNTER 2020-05-12 06:23 | Day surgery (SDC) | payer MEDICARE, MEDICAID ==
[~2020-05-12] VITALS: Ht 175 cm; Wt 111.0 kg
[2020-05-12 06:25] VITALS: BP 122/56
[2020-05-12] MEDS ORDERED: POVIDONE (BETADINE) OPHTH SOLN 5% 30 ML OP ONE (06:30)
[2020-05-12] MEDS ORDERED: MOXIFLOXACIN OPHTH SOLN 5 MG/ML 0.3 ML SYRINGE OP ONE (06:30)
[2020-05-12] MEDS: TETRACAINE 0.5% OPHTH SOLN 4 ML BTL (SINGLE DOSE ONLY) OU PRN ×4 (06:48→07:07)
[2020-05-12] MEDS: CYCLOPENTOLATE 1% (CYCLOGYL) 2 ML DROPS OP SCH ×3 (06:57→07:07)
[2020-05-12] MEDS: PHENYLEPHRINE 10% OPHTH (NEO-SYN) 5 ML BTL OU SCH ×3 (06:57→07:08)
[2020-05-12] MEDS ORDERED: MIDAZOLAM 2 MG/2 ML (VERSED) VIAL ONE (07:58)
[2020-05-12] MEDS ORDERED: acetaZOLAMIDE ER 500 MG CAP (DIAMOX SEQUELS) PO ONE (08:00)
--- NOTE | 2020-05-12 08:01 | Ophthalmologist Pre-Op Note ---
Pre-Operative Progress Note H&P Reviewed The H&P was reviewed, patient examined and no changes noted. Date H&P Reviewed: May 12, 2020 Time H&P Reviewed: 07:55 Pre-Op Dx Cataract, Right Eye YVONNE DAVIDSON MD May 12, 2020 08:01
[2020-05-12] MEDS: LIDOCAINE PF 1% 2 ML VIAL IR PRN (08:06)
[2020-05-12] MEDS: TIMOLOL MALEATE 0.5% 5 ML (TIMOPTIC) BTL OU PRN (08:06)
--- NOTE | 2020-05-12 08:24 | Ophthalmology Operative Report ---
Cataract removal/placement IOL PREOPERATIVE DIAGNOSIS: Cataract Right Eye POSTOPERATIVE DIAGNOSIS: Cataract Right Eye PROCEDURE: Cataract removal and placement of posterior chamber implant, right eye SURGEON: Mikey Davidson ANESTHESIA: Topical with sedation COMPLICATIONS: None ESTIMATED BLOOD LOSS: Minimal DESCRIPTION OF PROCEDURE: After proper informed consent was obtained, the patient, a 74 male, was taken to the Operating Room and the right eye was anesthetized with tetracaine. The right eye was then prepped and draped in the usual manner. A wire lid speculum was placed. A paracentesis was made at the left hand position. Preservative free lidocaine was injected into the anterior chamber followed by viscoelastic. A clear corneal incision was made in the temporal position. A capsulorrhexis was preformed and the central nuclear and cortical material were removed. The posterior capsule was polished and Dg AU00T0 15.0IOL was placed into the capsular bag. The residual viscoelastic was aspirated and balanced saline solution was injected into the anterior chamber. Moxifloxacin was injected into the anterior chamber. The wound was checked and found to be water tight. The patient tolerated the procedure well without complications. MIKEY DAVIDSON MD May 12, 2020 08:23
[2020-05-12 08:35] VITALS: BP 130/63
--- NOTE | 2020-05-12 12:23 | Anesthesia-General Post-Op ---
MAC Patient Condition Mental Status/LOC: Same as Preop Cardiovascular: Satisfactory Nausea/Vomiting: Absent Respiratory: Satisfactory Pain: Controlled Complications: Absent Post Op Complications Complications None Follow Up Care/Instructions Patient Instructions None needed. Anesthesiology Discharge Order Discharge Order Patient is doing well, no complaints, stable vital signs, no apparent adverse anesthesia problems. No complications reported per nursing. MITZI HOFF CRNA May 12, 2020 12:23
== END 2020-05-12 08:35 | disposition home or self-care (01) ==
LOC: SDC 06:23
PROVIDERS: ATTEND Specialist
DX: H25.11 Age-related nuclear cataract, right eye (principal); F41.9 Anxiety disorder, unspecified; E78.00 Pure hypercholesterolemia, unspecified; I10 Essential (primary) hypertension; N52.9 Male erectile dysfunction, unspecified; Z79.899 Other long term (current) drug therapy; Z88.0 Allergy status to penicillin; Z80.1 Family history of malignant neoplasm of trachea, bronchus and lung
CPT/HCPCS: 66984; V2632

== ENCOUNTER 2020-05-23 05:43 | Outpatient (CLI) | payer MEDICARE, MEDICAID ==
[~2020-05-23] VITALS: Ht 177.8 cm; Wt 111.0 kg
== END 2020-05-23 12:48 | disposition home or self-care (01) ==
LOC: PREOP 05:43 → EDSTATUS 14:00
PROVIDERS: ATTEND Specialist
DX: Z01.818 Encounter for other preprocedural examination (principal)

== ENCOUNTER 2020-05-26 06:05 | Day surgery (SDC) | payer MEDICARE, MEDICAID ==
[~2020-05-26] VITALS: Ht 172.7 cm; Wt 111.0 kg
[2020-05-26 06:10] VITALS: BP 135/63
[2020-05-26] MEDS ORDERED: MOXIFLOXACIN OPHTH SOLN 5 MG/ML 0.3 ML SYRINGE OP ONE (06:15)
[2020-05-26] MEDS ORDERED: TIMOLOL MALEATE 0.5% 5 ML (TIMOPTIC) BTL OU PRN (06:15)
[2020-05-26] MEDS ORDERED: LIDOCAINE PF 1% 2 ML VIAL IR PRN (06:15)
[2020-05-26] MEDS ORDERED: POVIDONE (BETADINE) OPHTH SOLN 5% 30 ML OP ONE (06:15)
[2020-05-26] MEDS: TETRACAINE 0.5% OPHTH SOLN 4 ML BTL (SINGLE DOSE ONLY) OU PRN ×4 (06:23→06:39)
[2020-05-26] MEDS: CYCLOPENTOLATE 1% (CYCLOGYL) 2 ML DROPS OP SCH ×3 (06:29→06:39)
[2020-05-26] MEDS: PHENYLEPHRINE 10% OPHTH (NEO-SYN) 5 ML BTL OU SCH ×3 (06:29→06:39)
[2020-05-26] MEDS ORDERED: MIDAZOLAM 2 MG/2 ML (VERSED) VIAL ONE (06:48)
[2020-05-26] MEDS ORDERED: acetaZOLAMIDE ER 500 MG CAP (DIAMOX SEQUELS) PO ONE (07:30)
--- NOTE | 2020-05-26 07:31 | Ophthalmologist Pre-Op Note ---
Pre-Operative Progress Note H&P Reviewed The H&P was reviewed, patient examined and no changes noted. Date H&P Reviewed: May 26, 2020 Time H&P Reviewed: 07:26 Pre-Op Dx Cataract, Left Eye YVONNE DAVIDSON MD May 26, 2020 07:31
--- NOTE | 2020-05-26 07:51 | Ophthalmology Operative Report ---
Cataract removal/placement IOL PREOPERATIVE DIAGNOSIS: Cataract Left Eye POSTOPERATIVE DIAGNOSIS: Cataract Left Eye PROCEDURE: Cataract removal and placement of posterior chamber implant, left eye SURGEON: Mikey Davidson ANESTHESIA: Topical with sedation COMPLICATIONS: None ESTIMATED BLOOD LOSS: Minimal DESCRIPTION OF PROCEDURE: After proper informed consent was obtained, the patient, a 74 male, was taken to the Operating Room and the left eye was anesthetized with tetracaine. The left eye was then prepped and draped in the usual manner. A wire lid speculum was placed. A paracentesis was made at the left hand position. Preservative free lidocaine was injected into the anterior chamber followed by viscoelastic. A clear corneal incision was made in the temporal position. A capsulorrhexis was preformed and the central nuclear and cortical material were removed. The posterior capsule was polished and an Dg 18.0 AU00T0 was placed into the capsular bag. The residual viscoelastic was aspirated and balanced saline solution was injected into the anterior chamber. Moxifloxacin was injected into the anterior chamber. The wound was checked and found to be water tight. The patient tolerated the procedure well without complications. MIKEY DAVIDSON MD May 26, 2020 07:51
[2020-05-26 08:00] VITALS: BP 141/61
--- NOTE | 2020-05-26 13:30 | Anesthesia-General Post-Op ---
MAC Patient Condition Mental Status/LOC: Same as Preop Cardiovascular: Satisfactory Nausea/Vomiting: Absent Respiratory: Satisfactory Pain: Controlled Complications: Absent Post Op Complications Complications None Follow Up Care/Instructions Patient Instructions None needed. Anesthesiology Discharge Order Discharge Order Patient is doing well, no complaints, stable vital signs, no apparent adverse anesthesia problems. No complications reported per nursing. MOHIT LOUIS CRNA May 26, 2020 13:30
== END 2020-05-26 08:00 | disposition home or self-care (01) ==
LOC: SDC 06:05
PROVIDERS: ATTEND Specialist
DX: H25.12 Age-related nuclear cataract, left eye (principal); I10 Essential (primary) hypertension; E78.00 Pure hypercholesterolemia, unspecified; E78.5 Hyperlipidemia, unspecified; F41.9 Anxiety disorder, unspecified; Z79.899 Other long term (current) drug therapy; Z85.828 Personal history of other malignant neoplasm of skin
CPT/HCPCS: 66984; V2632

== ENCOUNTER 2020-09-20 17:07 | Emergency (ER) | payer MEDICARE, MEDICAID ==
[~2020-09-20] VITALS: Ht 175.2 cm; Wt 84.0 kg
--- NOTE | 2020-09-20 18:27 | ED GU-Male ---
General Chief Complaint: General Problems/Pain Stated Complaint: ABD PAIN Nursing Triage Note: AMB TO ED WITH SUPERPUBIC ARZOLA IN PLACE C/O GENTIAL AREA AND HAVING HEMMORRHOID PAIN. Source: patient Exam Limitations: no limitations History of Present Illness Date Seen by Provider: Sep 20, 2020 Time Seen by Provider: 18:09 Initial Comments Patient resents to the ER by private conveyance with chief complaint of a nuisance pain in his perineum starting at 3:00 this afternoon, 3-1/2 hours prior to arrival. He has taken some Tylenol with no relief 2 hours ago. He says he's had this pain intermittently for the past several years. He also has a suprapubic catheter which is due to be changed in a week. It is 5 weeks since the last time it was changed. He has not had any fevers nausea vomiting abdominal discomfort. Other than the cystotomy he has not had any abdominal surgeries. He is followed by Dr. Doyle and Dr. Earl. The denies diarrhea, painful defecation or relief of pain with defecation. No constipation or diarrhea. He had the suprapubic catheter placed because he had bladder atony. Allergies and Home Medications Allergies Coded Allergies: Penicillins (Verified Allergy, Unknown, FROM CHILDHOOD, 05/02/20) Reacted as a child per uncoded allergy Home Medications Atenolol/Chlorthalidone 1 Each Tablet, 1 EACH PO DAILY, (Reported) Atorvastatin Calcium 80 Mg Tablet, 40 MG PO HS, (Reported) Famotidine 40 Mg Tablet, 40 MG PO DAILY, (Reported) Magnesium Oxide 420 Mg Tablet, 420 MG PO BID, (Reported) Omeprazole 20 Mg Tablet.dr, 20 MG PO DAILY, (Reported) Potassium Chloride 20 Meq Tablet.er, 20 MEQ PO DAILY, (Reported) Venlafaxine HCl 37.5 Mg Tab, 112.5 MG PO DAILY, (Reported) Patient Home Medication List Home Medication List Reviewed: Yes Review of Systems Review of Systems Constitutional: No chills, No malaise EENTM: No ear discharge, No hearing loss, No ear pain Respiratory: No cough, No phlegm Cardiovascular: No chest pain, No Hx of Intervention, No palpitations Gastrointestinal: No abdominal pain, No constipation, No diarrhea Genitourinary: denies burning, denies discharge Musculoskeletal: No back pain, No joint pain Skin: No pruritus, No rash Psychiatric/Neurological: Denies Headache, Denies Numbness All Other Systemes Reviewed Negative Unless Noted: Yes Past Lpoodum-Alkfuq-Zdcxrj Hx Patient Social History Alcohol Use: Denies Use Recreational Drug Use: No Smoking Status: Never a Smoker 2nd Hand Smoke Exposure: No Recent Foreign Travel: No Contact w/Someone Who Travel: No Recent Infectious Disease Expo: No Recent Hopitalizations: No Immunizations Up To Date Tetanus Booster (TDap): Unknown Date of Pneumonia Vaccine: Jun 23, 2012 Date of Influenza Vaccine: Jul 26, 2019 Seasonal Allergies Seasonal Allergies: Yes Past Medical History Surgeries: Yes (lesion from neck, suprapubic cath, foot) Bladder Surgery Respiratory: No Cardiac: Yes High Cholesterol, Hypertension Neurological: No Reproductive Disorders: No Sexually Transmitted Disease: No HIV/AIDS: No Genitourinary: Yes (suprapubic catheter) Gastrointestinal: Yes Gastroesophageal Reflux, Hemorrhoids, Polyps Musculoskeletal: No Endocrine: No HEENT: Yes (GLASSES) Double Vision Loss of Vision: Denies Hearing Impairment: Hard of Hearing, Bilateral Hearing Aide Cancer: Yes Skin Psychosocial: Yes Anxiety, Depression Integumentary: Yes (skin ca) Blood Disorders: No Adverse Reaction/Blood Tranf: No (N/A) Family Medical History No Pertinent Family Hx Physical Exam Vital Signs Vital Signs - First Documented 09/20/20 17:56 Temp 37.1 Pulse 89 Resp 18 B/P (MAP) 177/85 (115) Pulse Ox 97 O2 Delivery Room Air Capillary Refill : Less Than 3 Seconds Height, Weight, BMI Height: 5'8.00" Weight: 155lbs. 0.0oz. [id number]; 27.00 BMI Method:Stated General Appearance: WD/WN, no apparent distress HEENT: PERRL/EOMI, pharynx normal Neck: full range of motion, supple, normal inspection Cardiovascular: normal peripheral pulses, regular rate, rhythm Respiratory: no respiratory distress, no accessory muscle use Gastrointestinal: normal bowel sounds, non tender, soft, no organomegaly Genital/Rectal: normal genital exam, other (there is bilateral erythematous Gaulding in the groins without significant breakdown but a strong malodor) Extremities: non-tender, normal inspection Neurologic/Psychiatric: alert, normal mood/affect, oriented x 3 Skin: other (yeast Gaulding bilateral groins) Progress/Results/Core Measures Suspected Sepsis Recent Fever Within 48 Hours: No Infection Criteria Present: None New/Unexplained Altered Menta: No Sepsis Screen: No Definite Risk SIRS Temperature: Pulse: 89 Respiratory Rate: 18 Blood Pressure 177 /85 Mean: 115 Results/Orders Lab Results Laboratory Tests Test 09/20/20 18:11 Range/Units Urine Color PALE YELLOW Urine Clarity TURBID H Urine pH 8.5 5-9 Urine Specific [place] 1.000 L 1.016-1.022 Urine Protein 1+ H NEGATIVE Urine Glucose (UA) NEGATIVE NEGATIVE Urine Ketones NEGATIVE NEGATIVE Urine Nitrite NEGATIVE NEGATIVE Urine Bilirubin NEGATIVE NEGATIVE Urine Urobilinogen 0.2 < = 1.0 MG/DL Urine Leukocyte Esterase 3+ H NEGATIVE Urine RBC (Auto) 1+ H NEGATIVE Urine RBC RARE /HPF Urine WBC 5-10 H /HPF Urine Crystals PRESENT H /LPF Urine Triple Phosphate Crystals LARGE H /LPF Urine Bacteria LARGE H /HPF Urine Casts NONE /LPF Urine Mucus LARGE H /LPF Urine Culture Indicated YES My Orders Orders - REDD SALMON Ua Culture If Indicated (09/20/20 17:57) Urine Culture (09/20/20 18:11) Vital Signs/I&O 09/20/20 17:56 Temp 37.1 Pulse 89 Resp 18 B/P (MAP) 177/85 (115) Pulse Ox 97 O2 Delivery Room Air Capillary Refill : Less Than 3 Seconds Blood Pressure Mean: 115 Progress Note #1: Time: 18:27 Progress Note Unclear whether he has a catheter associated UTI or the tenderness in his perineum is from Gaulding. Could also be from muscle spasm or bladder spasm. Urinalysis has been collected. Plan to treat UTI if seen and put him on nystatin. Aseptic VS and non acute Abd exam Progress Note #2: Time: 18:57 Progress Note The patient symptoms have resolved. Were going to put him on Bactrim and give him some nystatin. We have given good return precautions as well as follow-up with Dr. Earl if not seeing improvement by the end of the week. Departure Impression Primary Impression: Yeast dermatitis Additional Impression: UTI (urinary tract infection) Qualified Codes: T83.510A - Infection and inflammatory reaction due to cystostomy catheter, initial encounter; N39.0 - Urinary tract infection, site not specified Disposition: 01 HOME, SELF-CARE Condition: Stable Departure-Patient Inst. Decision time for Depature: 18:50 Referrals: SHARON EARL DO (PCP/Family) Primary Care Physician Patient Instructions: Dermatitis, Urinary Tract Infection, Adult (DC) Add. Discharge Instructions: Drink plenty of fluids. Tylenol 1000 mg every 8 hours as necessary for pain. Keep the skin in your groins clean and dry and apply a light dusting of nystatin powder twice daily for the next week. Bactrim 1 tablet twice a day with food for the next 10 days. Follow-up later this week or early next week with your primary care doctor for reassessment. All discharge instructions reviewed with patient and/or family. Voiced understanding. Scripts Sulfamethoxazole/Trimethoprim (Bactrim Ds Tablet) 1 Each Tablet 1 EACH PO BID for 10 Days, #20 TAB 0 Refills Prov: REDD SALMON 09/20/20 Nystatin (Nystatin) 1,000,000 Unit Powder.ea. [id number] UNIT MC BID for 10 Days, #1 UNIT 0 Refills Prov: REDD SALMON 09/20/20 REDD SALMON Sep 20, 2020 18:27
[2020-09-20 18:44] LABS: CLARITY,URINE TURBID; COLOR,URINE PALE YELLOW; PH,URINE 8.5 (5-9); PROTEIN,URINE 1+ (NEGATIVE)
[2020-09-20 18:45] LABS: BILIRUBIN,URINE NEGATIVE (NEGATIVE); GLUCOSE, URINE (UA) NEGATIVE (NEGATIVE); KETONES,URINE NEGATIVE (NEGATIVE); LEUKOCYTE ESTERASE ,URINE 3+ (NEGATIVE); NITRITE,URINE NEGATIVE (NEGATIVE)
[2020-09-20 18:46] LABS: BACTERIA,URINE LARGE /HPF; RBC,URINE RARE /HPF
[2020-09-20 18:47] LABS: TRIPLE PHOSPHATE CRYSTAL,UR LARGE /LPF
[2020-09-20] MEDS ORDERED: [UNRECOGNIZED DRUG - CODE] MC ×2 (18:53→18:56)
[2020-09-20] MEDS ORDERED: SULF1TAB35 PO ×2 (18:53→18:56)
[2020-09-20 19:12] VITALS: BP 116/74
== END 2020-09-20 19:12 | disposition home or self-care (01) ==
LOC: EDUNIT# 17:07 → ER 17:08
DX: L30.8 Other specified dermatitis (principal); N39.0 Urinary tract infection, site not specified; E78.00 Pure hypercholesterolemia, unspecified; I10 Essential (primary) hypertension; K21.9 Gastro-esophageal reflux disease without esophagitis; F41.9 Anxiety disorder, unspecified; F32.9 Major depressive disorder, single episode, unspecified; Z85.828 Personal history of other malignant neoplasm of skin; Z88.0 Allergy status to penicillin
CPT/HCPCS: 81000; 87088; 99282

== ENCOUNTER 2020-10-16 18:59 | Emergency (ER) | payer MEDICARE, MEDICAID ==
[~2020-10-16] VITALS: Ht 175.6 cm; Wt 111.1 kg
[~2020-10-16 18:59] MED LIST changes: +[UNRECOGNIZED DRUG - CODE] MC
--- NOTE | 2020-10-16 19:15 | ED GU-Female ---
General Chief Complaint: - Urinary Stated Complaint: CATH ISSUES, UTI Source: patient Exam Limitations: no limitations History of Present Illness Date Seen by Provider: Oct 16, 2020 Time Seen by Provider: 19:15 Initial Comments This is a 75-year-old male who presents to the ER with complaints that his suprapubic catheter started leaking sometime today. States he came in tonight to have it changed. No other complaints or concerns. Allergies and Home Medications Allergies Coded Allergies: Penicillins (Verified Allergy, Unknown, FROM CHILDHOOD, 05/02/20) Reacted as a child per uncoded allergy Home Medications Atenolol/Chlorthalidone 1 Each Tablet, 1 EACH PO DAILY, (Reported) Atorvastatin Calcium 80 Mg Tablet, 40 MG PO HS, (Reported) Famotidine 40 Mg Tablet, 40 MG PO DAILY, (Reported) Magnesium Oxide 420 Mg Tablet, 420 MG PO BID, (Reported) Nystatin 1,000,000 Unit Powder.ea., 1,000,000 UNIT MC BID Prescribed by: REDD SALMON on 09/20/201855 Omeprazole 20 Mg Tablet.dr, 20 MG PO DAILY, (Reported) Potassium Chloride 20 Meq Tablet.er, 20 MEQ PO DAILY, (Reported) Sulfamethoxazole/Trimethoprim 1 Each Tablet, 1 EACH PO BID Prescribed by: REDD SALMON on 09/20/201855 Venlafaxine HCl 37.5 Mg Tab, 112.5 MG PO DAILY, (Reported) Patient Home Medication List Home Medication List Reviewed: Yes Review of Systems Review of Systems Constitutional: no symptoms reported EENTM: no symptoms reported Respiratory: no symptoms reported Cardiovascular: no symptoms reported Gastrointestinal: no symptoms reported Genitourinary: see HPI Musculoskeletal: no symptoms reported Skin: no symptoms reported Psychiatric/Neurological: No Symptoms Reported Endocrine: No Symptoms Reported Hematologic/Lymphatic: No Symptoms Reported Past Aywunvm-Xjvenn-Xwiand Hx Patient Social History 2nd Hand Smoke Exposure: No Recent Foreign Travel: No Contact w/Someone Who Travel: No Recent Hopitalizations: No Immunizations Up To Date Tetanus Booster (TDap): Unknown Date of Pneumonia Vaccine: Jun 23, 2012 Date of Influenza Vaccine: Jul 26, 2019 Seasonal Allergies Seasonal Allergies: Yes Past Medical History Surgeries: Yes (lesion from neck, suprapubic cath, foot) Bladder Surgery Respiratory: No Cardiac: Yes High Cholesterol, Hypertension Neurological: No Reproductive Disorders: No Sexually Transmitted Disease: No HIV/AIDS: No Genitourinary: Yes (suprapubic catheter) Gastrointestinal: Yes Gastroesophageal Reflux, Hemorrhoids, Polyps Musculoskeletal: No Endocrine: No HEENT: Yes (GLASSES) Double Vision Loss of Vision: Denies Hearing Impairment: Hard of Hearing, Bilateral Hearing Aide Cancer: Yes Skin Psychosocial: Yes Anxiety, Depression Integumentary: Yes (skin ca) Blood Disorders: No Adverse Reaction/Blood Tranf: No (N/A) Family Medical History No Pertinent Family Hx Physical Exam Vital Signs Vital Signs - First Documented 10/16/20 19:08 Temp 36.0 Pulse 78 Resp 20 B/P (MAP) 131/69 (89) Pulse Ox 95 Capillary Refill : Height, Weight, BMI Height: 5'8.00" Weight: 155lbs. 0.0oz. 70.047264dq; 27.00 BMI Method:Stated General Appearance: WD/WN, no apparent distress HEENT: PERRL/EOMI, pharynx normal Neck: full range of motion, normal inspection Cardiovascular: regular rate, rhythm Respiratory: chest non-tender, lungs clear, normal breath sounds Gastrointestinal: normal bowel sounds, non tender, soft Genital/Rectal: other (suprapubic Monk catheter present. ) Extremities: normal range of motion, normal inspection Neurologic/Psychiatric: no motor/sensory deficits, alert, normal mood/affect, oriented x 3 Skin: normal color, warm/dry Progress/Results/Core Measures Suspected Sepsis SIRS Temperature: Pulse: Respiratory Rate: Blood Pressure / Mean: Results/Orders My Orders Vital Signs/I&O Capillary Refill : Progress Note : Progress Note Was able to remove 8cc of sterile water from current Monk catheter and was removed without difficulty. Placed new 20F Monk catheter, via sterile technique, inflated with 10ml sterile water, immediate return of orange urine. He is noted to be taking Azo's Departure Impression Primary Impression: Suprapubic catheter dysfunction Disposition: 01 HOME, SELF-CARE Condition: Improved Departure-Patient Inst. Decision time for Depature: 19:37 Referrals: SHARON EARL DO (PCP/Family) Primary Care Physician Patient Instructions: How to Care for Your Suprapubic Urinary Catheter Add. Discharge Instructions: Plan: 1. Discharge home. Drink plenty of fluids. 2. Stop your Azo's for 24 hours, change your catheter bag, and collect urine sample. Return to lab at the hospital. 3. Follow up with your primary care provider if your symptoms persist. 4. Return for any new or concerning symptoms. All discharge instructions reviewed with patient and/or family. Voiced understanding. KAYLEY DANIEL SCIENTIFIC LINGUIST Oct 16, 2020 19:15
--- NOTE | 2020-10-16 19:30 | NUR ---
KAYLEY DANIEL APRN V.O. TO NOT COLLECT UA AT THIS TIME. OUT PATIENT ORDERS GIVEN.
[2020-10-16 20:19] VITALS: BP 131/69
--- NOTE | 2020-10-17 18:11 | ED GU-Male ---
General Chief Complaint: - Urinary Stated Complaint: CATH ISSUES, UTI Nursing Triage Note: VERBALIZES CATHETER IS LEAKING AROUND INSERTION AREA AND WANTED IT CHANGED. Source: patient Exam Limitations: no limitations History of Present Illness Date Seen by Provider: Oct 16, 2020 Time Seen by Provider: 19:15 Initial Comments This is a 75-year-old male who presents to the ER with complaints that his suprapubic catheter started leaking sometime today. States he came in tonight to have it changed. No other complaints or concerns. Timing/Duration: this morning Allergies and Home Medications Allergies Coded Allergies: Penicillins (Verified Allergy, Unknown, FROM CHILDHOOD, 05/02/20) Reacted as a child per uncoded allergy Home Medications Atenolol/Chlorthalidone 1 Each Tablet, 1 EACH PO DAILY, (Reported) Atorvastatin Calcium 80 Mg Tablet, 40 MG PO HS, (Reported) Famotidine 40 Mg Tablet, 40 MG PO DAILY, (Reported) Magnesium Oxide 420 Mg Tablet, 420 MG PO BID, (Reported) Nystatin 1,000,000 Unit Powder.ea., 1,000,000 UNIT MC BID Prescribed by: REDD SALMON on 09/20/201855 Omeprazole 20 Mg Tablet.dr, 20 MG PO DAILY, (Reported) Potassium Chloride 20 Meq Tablet.er, 20 MEQ PO DAILY, (Reported) Sulfamethoxazole/Trimethoprim 1 Each Tablet, 1 EACH PO BID Prescribed by: REDD SALMON on 09/20/201855 Venlafaxine HCl 37.5 Mg Tab, 112.5 MG PO DAILY, (Reported) Patient Home Medication List Home Medication List Reviewed: Yes Review of Systems Review of Systems Constitutional: no symptoms reported EENTM: no symptoms reported Respiratory: no symptoms reported Cardiovascular: no symptoms reported Gastrointestinal: no symptoms reported Genitourinary: see HPI Musculoskeletal: no symptoms reported Skin: no symptoms reported Psychiatric/Neurological: No Symptoms Reported Endocrine: No Symptoms Reported Hematologic/Lymphatic: No Symptoms Reported Past Esnpvmi-Pyyprm-Dthomt Hx Patient Social History Alcohol Use: Denies Use Recreational Drug Use: No 2nd Hand Smoke Exposure: No Recent Foreign Travel: No Contact w/Someone Who Travel: No Recent Infectious Disease Expo: No Recent Hopitalizations: No Physical Abuse: No Sexual Abuse: No Mistreated: No Fear: No Immunizations Up To Date Tetanus Booster (TDap): Unknown Date of Pneumonia Vaccine: Jun 23, 2012 Date of Influenza Vaccine: Jul 26, 2019 Seasonal Allergies Seasonal Allergies: Yes Past Medical History Surgeries: Yes (lesion from neck, suprapubic cath, foot) Bladder Surgery Respiratory: No Cardiac: Yes High Cholesterol, Hypertension Neurological: No Reproductive Disorders: No Sexually Transmitted Disease: No HIV/AIDS: No Genitourinary: Yes (suprapubic catheter) Gastrointestinal: Yes Gastroesophageal Reflux, Hemorrhoids, Polyps Musculoskeletal: No Endocrine: No HEENT: Yes (GLASSES) Double Vision Loss of Vision: Denies Hearing Impairment: Hard of Hearing, Bilateral Hearing Aide Cancer: Yes Skin Psychosocial: Yes Anxiety, Depression Integumentary: Yes (skin ca) Blood Disorders: No Adverse Reaction/Blood Tranf: No (N/A) Family Medical History No Pertinent Family Hx Physical Exam Vital Signs Vital Signs - First Documented 10/16/20 19:08 Temp 36.0 Pulse 78 Resp 20 B/P (MAP) 131/69 (89) Pulse Ox 95 Capillary Refill : Less Than 3 Seconds Height, Weight, BMI Height: 5'8.00" Weight: 155lbs. 0.0oz. 70.782466az; 36.00 BMI Method:Stated General Appearance: WD/WN, no apparent distress HEENT: PERRL/EOMI, pharynx normal Neck: full range of motion, supple, normal inspection Cardiovascular: regular rate, rhythm, no murmur Respiratory: chest non-tender, lungs clear, normal breath sounds, no respiratory distress Gastrointestinal: normal bowel sounds, non tender, soft Genital/Rectal: other (suprapubic catheter in place) Back: normal inspection Extremities: normal range of motion, non-tender, normal inspection, normal capillary refill Neurologic/Psychiatric: no motor/sensory deficits, alert, normal mood/affect, oriented x 3 Skin: normal color, warm/dry Progress/Results/Core Measures Suspected Sepsis Recent Fever Within 48 Hours: No Infection Criteria Present: None New/Unexplained Altered Menta: No Sepsis Screen: No Definite Risk SIRS Temperature: Pulse: 78 Respiratory Rate: 20 Blood Pressure 131 /69 Mean: 89 Results/Orders Vital Signs/I&O 10/16/20 10/16/20 19:08 20:19 Temp 36.0 Pulse 78 78 Resp 20 20 B/P (MAP) 131/69 (89) 131/69 Pulse Ox 95 95 Capillary Refill : Less Than 3 Seconds Blood Pressure Mean: 89 Progress Note : Progress Note Was able to remove 8cc of sterile water from current Monk catheter and was removed without difficulty. Placed new 20F Monk catheter, via sterile technique, inflated with 10ml sterile water, immediate return of orange urine. He is noted to be taking Azo's Outpatient ordered given to collect UA once he is stop taking the Azo's for 24 hours. Reviewed discharge plan of care and he is agreeable with plan. Departure Impression Primary Impression: Suprapubic catheter dysfunction Disposition: HOME, SELF-CARE Condition: Improved Departure-Patient Inst. Decision time for Depature: 19:30 Referrals: SHARON EARL DO (PCP) Primary Care Physician Patient Instructions: How to Care for Your Suprapubic Urinary Catheter Add. Discharge Instructions: Plan: 1. Discharge home. Drink plenty of fluids. 2. Stop your Azo's for 24 hours, change your catheter bag, and collect urine sample. Return to lab at the hospital. 3. Follow up with your primary care provider if your symptoms persist. 4. Return for any new or concerning symptoms. All discharge instructions reviewed with patient and/or family. Voiced understanding. KAYLEY DANIEL DIRECTOR OF CONSTRUCTION Oct 17, 2020 18:11
== END 2020-10-16 20:19 | disposition home or self-care (01) ==
LOC: EDUNIT# 18:59 → ER 19:01
DX: T83.198A Other mechanical complication of other urinary devices and implants, initial encounter (principal); I10 Essential (primary) hypertension; E78.00 Pure hypercholesterolemia, unspecified; K21.9 Gastro-esophageal reflux disease without esophagitis; F41.9 Anxiety disorder, unspecified; F32.9 Major depressive disorder, single episode, unspecified; Z88.0 Allergy status to penicillin; Z85.828 Personal history of other malignant neoplasm of skin
CPT/HCPCS: 51702

== ENCOUNTER → 2020-10-19 | Outpatient (CLI) | payer MEDICARE, MEDICAID ==
[2020-10-19 14:29] LABS: BILIRUBIN,URINE NEGATIVE (NEGATIVE); CLARITY,URINE CLEAR; COLOR,URINE YELLOW; GLUCOSE, URINE (UA) NEGATIVE (NEGATIVE); KETONES,URINE NEGATIVE (NEGATIVE); LEUKOCYTE ESTERASE ,URINE 3+ (NEGATIVE); NITRITE,URINE NEGATIVE (NEGATIVE); PH,URINE 8.5 (5-9); PROTEIN,URINE 1+ (NEGATIVE)
[2020-10-19 14:46] LABS: RBC,URINE RARE /HPF; WBC,URINE 25-50 /HPF
[2020-10-19 14:47] LABS: BACTERIA,URINE TRACE /HPF; TRIPLE PHOSPHATE CRYSTAL,UR MODERATE /LPF
== END ==
LOC: LABNPT 13:00
PROVIDERS: ATTEND Nurse Practitioner Family
DX: Z03.89 Encounter for observation for other suspected diseases and conditions ruled out (principal)
CPT/HCPCS: 81000; 87077; 87088; 87186

== ENCOUNTER 2020-11-14 08:21 | Emergency (ER) | payer MEDICARE, MEDICAID ==
[~2020-11-14] VITALS: Ht 172.7 cm; Wt 111.0 kg
[2020-11-14 08:35] VITALS: BP 139/78
--- NOTE | 2020-11-14 08:38 | ED GU-Male ---
General Stated Complaint: CATHETER REPLACED Source: patient Exam Limitations: no limitations History of Present Illness Date Seen by Provider: Nov 14, 2020 Time Seen by Provider: 08:37 Initial Comments 75-year-old male presents to have his suprapubic Monk catheter exchanged. Reports that he noticed there was some leaking around it last night. He present s today to have it exchanged. He sees Dr. Sunil wakefield but states that they do not carry pulleys in the office so he needs to come here to have it exchanged. He has no other urinary symptoms, no fevers chills nausea vomiting etc. Allergies and Home Medications Allergies Coded Allergies: Penicillins (Verified Allergy, Unknown, FROM CHILDHOOD, 05/02/20) Reacted as a child per uncoded allergy Home Medications Atenolol/Chlorthalidone 1 Each Tablet, 1 EACH PO DAILY, (Reported) Atorvastatin Calcium 80 Mg Tablet, 40 MG PO HS, (Reported) Famotidine 40 Mg Tablet, 40 MG PO DAILY, (Reported) Magnesium Oxide 420 Mg Tablet, 420 MG PO BID, (Reported) Nystatin 1,000,000 Unit Powder.ea., 1,000,000 UNIT MC BID Prescribed by: REDD SALMON on 09/20/201855 Omeprazole 20 Mg Tablet.dr, 20 MG PO DAILY, (Reported) Potassium Chloride 20 Meq Tablet.er, 20 MEQ PO DAILY, (Reported) Sulfamethoxazole/Trimethoprim 1 Each Tablet, 1 EACH PO BID Prescribed by: REDD SALMON on 09/20/201855 Venlafaxine HCl 37.5 Mg Tab, 112.5 MG PO DAILY, (Reported) Patient Home Medication List Home Medication List Reviewed: Yes Review of Systems Review of Systems Constitutional: no symptoms reported Respiratory: no symptoms reported Cardiovascular: no symptoms reported Gastrointestinal: no symptoms reported Genitourinary: see HPI Skin: no symptoms reported Psychiatric/Neurological: No Symptoms Reported Past Mkftswy-Edpbas-Oslyez Hx Past Med/Social Hx: Reviewed Nursing Past Med/Soc Hx Patient Social History 2nd Hand Smoke Exposure: No Recent Hopitalizations: No Immunizations Up To Date Tetanus Booster (TDap): Unknown Date of Pneumonia Vaccine: Jun 23, 2012 Date of Influenza Vaccine: Jul 26, 2019 Seasonal Allergies Seasonal Allergies: Yes Past Medical History Surgeries: Yes (lesion from neck, suprapubic cath, foot) Bladder Surgery Respiratory: No Cardiac: Yes High Cholesterol, Hypertension Neurological: No Reproductive Disorders: No Sexually Transmitted Disease: No HIV/AIDS: No Genitourinary: Yes (suprapubic catheter) Gastrointestinal: Yes Gastroesophageal Reflux, Hemorrhoids, Polyps Musculoskeletal: No Endocrine: No HEENT: Yes (GLASSES) Double Vision Loss of Vision: Denies Hearing Impairment: Hard of Hearing, Bilateral Hearing Aide Cancer: Yes Skin Psychosocial: Yes Anxiety, Depression Integumentary: Yes (skin ca) Blood Disorders: No Adverse Reaction/Blood Tranf: No (N/A) Family Medical History No Pertinent Family Hx Physical Exam Vital Signs Capillary Refill : Height, Weight, BMI Height: 5'8.00" Weight: 155lbs. 0.0oz. 70.956801ks; 36.00 BMI Method:Stated General Appearance: no apparent distress Cardiovascular: regular rate, rhythm Respiratory: no respiratory distress, no accessory muscle use Gastrointestinal: non tender, soft Male: other (Suprapubic catheter, mild liquid around with small leak) Extremities: normal range of motion, non-tender Neurologic/Psychiatric: alert, normal mood/affect, oriented x 3 Progress/Results/Core Measures Suspected Sepsis SIRS Temperature: Pulse: Respiratory Rate: Blood Pressure / Mean: Results/Orders Vital Signs/I&O Capillary Refill : Progress Note : Progress Note Patient's catheter exchanged with no issues. Recommend see follow-up for future catheter issues Dr. Doyle's office Departure Impression Primary Impression: Suprapubic catheter dysfunction Qualified Codes: T83.010A - Breakdown (mechanical) of cystostomy catheter, initial encounter Disposition: HOME, SELF-CARE Condition: Improved Departure-Patient Inst. Referrals: NO,LOCAL PHYSICIAN (PCP/Family) Primary Care Physician Patient Instructions: How to Care for Your Monk Catheter, Male Add. Discharge Instructions: Follow-up with Dr. Doyle's office for continuation of care and recheck of today's RYAN PATRICIA DO Nov 14, 2020 08:38
== END 2020-11-14 09:20 | disposition home or self-care (01) ==
LOC: EDUNIT# 08:21 → ER 08:23
DX: T83.038A Leakage of other urinary catheter, initial encounter (principal); E78.00 Pure hypercholesterolemia, unspecified; I10 Essential (primary) hypertension; K21.9 Gastro-esophageal reflux disease without esophagitis; F32.9 Major depressive disorder, single episode, unspecified; F41.9 Anxiety disorder, unspecified; Z85.828 Personal history of other malignant neoplasm of skin; Z88.0 Allergy status to penicillin
CPT/HCPCS: 51702

== ENCOUNTER 2020-11-19 08:19 | Emergency (ER) | payer MEDICARE, MEDICAID ==
[~2020-11-19] VITALS: Ht 172 cm; Wt 106.0 kg
[2020-11-19 08:20] VITALS: BP 164/72
--- NOTE | 2020-11-19 08:41 | ED GU-Male ---
General Chief Complaint: Catheter/Drain/Tube Problems Stated Complaint: CATHETER ISSUES Nursing Triage Note: ARRIVED VIA AMB TO ROOM 05. STATES SUPRAPUBIC CATH STARTED LEAKING LAST NIGHT AND WANTS IT REPLACED. PT BROUGHT CATH WITH HIM. Source: patient Exam Limitations: no limitations History of Present Illness Date Seen by Provider: Nov 19, 2020 Time Seen by Provider: 08:25 Initial Comments Patient presents to the ER by private conveyance from home with chief complaint all night he has had leaking of urine around his suprapubic catheter. He said the catheter in place for 4 to 5 years after a bad infection. He recently started an antibiotic for a UTI. He has been able to produce urine through his bag. Typically he says if this happens he goes to Dr. Doyle and the clinic staff will fix it for him. He brought his own catheter. He is having no fevers chills pain nausea or other symptoms. He follows with Dr. EARL. Allergies and Home Medications Allergies Coded Allergies: Penicillins (Verified Allergy, Unknown, FROM CHILDHOOD, 05/02/20) Reacted as a child per uncoded allergy Home Medications Atenolol/Chlorthalidone 1 Each Tablet, 1 EACH PO DAILY, (Reported) Atorvastatin Calcium 80 Mg Tablet, 40 MG PO HS, (Reported) Famotidine 40 Mg Tablet, 40 MG PO DAILY, (Reported) Magnesium Oxide 420 Mg Tablet, 420 MG PO BID, (Reported) Nystatin 1,000,000 Unit Powder.ea., 1,000,000 UNIT MC BID Prescribed by: REDD SALMON on 09/20/201855 Omeprazole 20 Mg Tablet.dr, 20 MG PO DAILY, (Reported) Potassium Chloride 20 Meq Tablet.er, 20 MEQ PO DAILY, (Reported) Sulfamethoxazole/Trimethoprim 1 Each Tablet, 1 EACH PO BID Prescribed by: REDD SALMON on 09/20/201855 Venlafaxine HCl 37.5 Mg Tab, 112.5 MG PO DAILY, (Reported) Patient Home Medication List Home Medication List Reviewed: Yes Review of Systems Review of Systems Constitutional: No chills, No fever EENTM: No ear discharge, No ear pain Respiratory: No cough, No short of breath Cardiovascular: No chest pain, No edema Gastrointestinal: No abdominal pain, No nausea, No vomiting All Other Systemes Reviewed Negative Unless Noted: Yes Past Slrbwmr-Rvjgxd-Rwqbou Hx Patient Social History Alcohol Use: Denies Use Smoking Status: Never a Smoker 2nd Hand Smoke Exposure: No Recent Infectious Disease Expo: No Recent Hopitalizations: No Immunizations Up To Date Tetanus Booster (TDap): Unknown Date of Pneumonia Vaccine: Jun 23, 2012 Date of Influenza Vaccine: Jul 26, 2019 Seasonal Allergies Seasonal Allergies: Yes Past Medical History Surgeries: Yes (lesion from neck, suprapubic cath, foot) Bladder Surgery Respiratory: No Cardiac: Yes High Cholesterol, Hypertension Neurological: No Reproductive Disorders: No Sexually Transmitted Disease: No HIV/AIDS: No Genitourinary: Yes (suprapubic catheter) Gastrointestinal: Yes Gastroesophageal Reflux, Hemorrhoids, Polyps Musculoskeletal: No Endocrine: No HEENT: Yes (GLASSES) Double Vision Loss of Vision: Denies Hearing Impairment: Hard of Hearing, Bilateral Hearing Aide Cancer: Yes Skin Psychosocial: Yes Anxiety, Depression Integumentary: Yes (skin ca) Blood Disorders: No Adverse Reaction/Blood Tranf: No (N/A) Family Medical History No Pertinent Family Hx Physical Exam Vital Signs Vital Signs - First Documented 11/19/20 08:20 Temp 37.0 Pulse 78 Resp 16 B/P (MAP) 164/72 (102) Pulse Ox 94 O2 Delivery Room Air Capillary Refill : Less Than 3 Seconds Height, Weight, BMI Height: 5'8.00" Weight: 155lbs. 0.0oz. 70.940167nt; 35.00 BMI Method:Stated General Appearance: WD/WN, no apparent distress HEENT: PERRL/EOMI, pharynx normal Neck: full range of motion, normal inspection Cardiovascular: normal peripheral pulses, regular rate, rhythm Respiratory: no respiratory distress, no accessory muscle use Gastrointestinal: non tender, soft Neurologic/Psychiatric: alert, oriented x 3 Skin: normal color, warm/dry Procedures/Interventions Progress Suprapubic catheter was decompressed and drained and removed. His own 20 Czech catheter was replaced easily without difficulty and had a small amount of urine back. Balloon was inflated with 5 cc. Patient tolerated the procedure well. Progress/Results/Core Measures Suspected Sepsis Recent Fever Within 48 Hours: No Infection Criteria Present: None New/Unexplained Altered Menta: No Sepsis Screen: No Definite Risk SIRS Temperature: Pulse: 78 Respiratory Rate: 16 Blood Pressure 164 /72 Mean: 102 Results/Orders Vital Signs/I&O 11/19/20 08:20 Temp 37.0 Pulse 78 Resp 16 B/P (MAP) 164/72 (102) Pulse Ox 94 O2 Delivery Room Air Capillary Refill : Less Than 3 Seconds Blood Pressure Mean: 102 Departure Impression Primary Impression: Suprapubic catheter dysfunction Qualified Codes: T83.010A - Breakdown (mechanical) of cystostomy catheter, initial encounter Disposition: HOME, SELF-CARE Condition: Improved Departure-Patient Inst. Decision time for Depature: 08:36 Referrals: SHARON EARL DO (PCP/Family) Primary Care Physician Patient Instructions: How to Care for Your Monk Catheter, Male Add. Discharge Instructions: Keep the site clean and dry. Continue taking your medications as prescribed. Return to the ER if you have any further difficulty with it otherwise follow-up with your primary care provider or urologist. All discharge instructions reviewed with patient and/or family. Voiced understanding. REDD SALMON Nov 19, 2020 08:41
== END 2020-11-19 08:43 | disposition home or self-care (01) ==
LOC: EDUNIT# 08:19 → ER 08:21
DX: T83.038A Leakage of other urinary catheter, initial encounter (principal); E78.00 Pure hypercholesterolemia, unspecified; I10 Essential (primary) hypertension; K21.9 Gastro-esophageal reflux disease without esophagitis; F41.9 Anxiety disorder, unspecified; F32.9 Major depressive disorder, single episode, unspecified; Z88.0 Allergy status to penicillin; Z85.828 Personal history of other malignant neoplasm of skin
CPT/HCPCS: 51702

== ENCOUNTER → 2020-11-24 | Outpatient (CLI) | payer MEDICARE, MEDICAID ==
[~2020-11-24] MED LIST changes: +ACET-2650 PO; +BUPR150T8 PO; +CYAN500T8 PO; +FLUT9.9S NSEACH
== END ==
LOC: LAB 11:18
PROVIDERS: ATTEND Family Medicine
DX: N39.0 Urinary tract infection, site not specified (principal)
CPT/HCPCS: 87077; 87088

== ENCOUNTER 2020-11-25 16:07 | Emergency (ER) | payer MEDICARE, MEDICAID ==
[~2020-11-25] VITALS: Ht 172.7 cm; Wt 106.6 kg
[~2020-11-25 16:07] MED LIST changes: -ACET-2650 PO; -BUPR150T8 PO; -CYAN500T8 PO; -FLUT9.9S NSEACH
[2020-11-25 16:13] VITALS: BP 156/77
== END 2020-11-25 17:21 | disposition home or self-care (01) ==
LOC: EDUNIT# 16:07 → ER 16:08
DX: T85.638A Leakage of other specified internal prosthetic devices, implants and grafts, initial encounter (principal)
CPT/HCPCS: 99281

== ENCOUNTER 2020-11-26 15:02 | Inpatient (IN) | payer MEDICARE, MEDICAID ==
[~2020-11-26] VITALS: Ht 172.7 cm; Wt 111.2 kg
--- NOTE | 2020-11-26 15:18 | ED GU-Male ---
General Chief Complaint: Catheter/Drain/Tube Problems Stated Complaint: RECTAL PAIN Source: patient Exam Limitations: no limitations History of Present Illness Date Seen by Provider: Nov 26, 2020 Time Seen by Provider: 15:09 Initial Comments To ER with reports of perineal pain intermittent since yesterday. No fevers or chills. Has a chronic indwelling suprapubic catheter. Timing/Duration: just prior to arrival Severity/Quality: cramping Location: unknown Radiation: none Activities at Onset: none Prior Genitourinary Problems: none Associated Symptoms: denies symptoms Allergies and Home Medications Allergies Coded Allergies: Penicillins (Verified Allergy, Unknown, FROM CHILDHOOD, 05/02/20) Reacted as a child per uncoded allergy Home Medications Atenolol/Chlorthalidone 1 Each Tablet, 1 EACH PO DAILY, (Reported) Atorvastatin Calcium 80 Mg Tablet, 40 MG PO HS, (Reported) Famotidine 40 Mg Tablet, 40 MG PO DAILY, (Reported) Magnesium Oxide 420 Mg Tablet, 420 MG PO BID, (Reported) Nystatin 1,000,000 Unit Powder.ea., 1,000,000 UNIT MC BID Prescribed by: REDD SALMON on 09/20/201855 Omeprazole 20 Mg Tablet.dr, 20 MG PO DAILY, (Reported) Potassium Chloride 20 Meq Tablet.er, 20 MEQ PO DAILY, (Reported) Sulfamethoxazole/Trimethoprim 1 Each Tablet, 1 EACH PO BID Prescribed by: REDD SALMON on 09/20/201855 Venlafaxine HCl 37.5 Mg Tab, 112.5 MG PO DAILY, (Reported) Patient Home Medication List Home Medication List Reviewed: Yes Review of Systems Review of Systems Constitutional: see HPI EENTM: see HPI Respiratory: no symptoms reported Cardiovascular: no symptoms reported Genitourinary: see HPI Musculoskeletal: no symptoms reported Skin: no symptoms reported Psychiatric/Neurological: No Symptoms Reported Endocrine: No Symptoms Reported Past Ejzfbdu-Csyehd-Ldwqvs Hx Patient Social History Alcohol Use: Denies Use Smoking Status: Never a Smoker 2nd Hand Smoke Exposure: No Recent Hopitalizations: No Immunizations Up To Date Tetanus Booster (TDap): Unknown Date of Pneumonia Vaccine: Jun 23, 2012 Date of Influenza Vaccine: Jul 26, 2019 Seasonal Allergies Seasonal Allergies: Yes Past Medical History Surgeries: Yes (lesion from neck, suprapubic cath, foot) Bladder Surgery Respiratory: No Cardiac: Yes High Cholesterol, Hypertension Neurological: No Reproductive Disorders: No Sexually Transmitted Disease: No HIV/AIDS: No Genitourinary: Yes (suprapubic catheter) Gastrointestinal: Yes Gastroesophageal Reflux, Hemorrhoids, Polyps Musculoskeletal: No Endocrine: No HEENT: Yes (GLASSES) Double Vision Loss of Vision: Denies Hearing Impairment: Hard of Hearing, Bilateral Hearing Aide Cancer: Yes Skin Psychosocial: Yes Anxiety, Depression Integumentary: Yes (skin ca) Blood Disorders: No Adverse Reaction/Blood Tranf: No (N/A) Family Medical History No Pertinent Family Hx Physical Exam Vital Signs Vital Signs - First Documented 11/26/20 15:11 Temp 38.6 Pulse 91 Resp 18 B/P (MAP) 171/77 (108) Pulse Ox 95 Capillary Refill : Height, Weight, BMI Height: 5'8.00" Weight: 155lbs. 0.0oz. 70.201966ra; 35.00 BMI Method:Stated General Appearance: WD/WN, no apparent distress HEENT: PERRL/EOMI, normal ENT inspection Neck: non-tender, full range of motion Respiratory: no respiratory distress, no accessory muscle use Male: normal genitalia, other (When asked to point to the location of pain he points to the posterior aspect of the scrotum. The overlying skin is normal without erythema or evidence of infection. On digital rectal exam there is no fecal impaction but there is a very large firm prostate.) Neurologic/Psychiatric: alert, normal mood/affect, oriented x 3 Focused Exam Lactate Level 11/26/20 15:33: Lactic Acid Level 1.05 Lactic Acid Level Laboratory Tests Test 11/26/20 15:33 Lactic Acid Level 1.05 MMOL/L (0.50-2.00) Progress/Results/Core Measures Suspected Sepsis SIRS Temperature: Pulse: Respiratory Rate: Laboratory Tests 11/26/20 15:33: White Blood Count 15.9H Blood Pressure / Mean: 11/26/20 15:33: Lactic Acid Level 1.05 Laboratory Tests 11/26/20 15:33: Creatinine 2.06H, Platelet Count 349, Total Bilirubin 0.3 Results/Orders Lab Results Laboratory Tests Test 11/26/20 15:33 11/26/20 17:12 Range/Units White Blood Count 15.9 H 4.3-11.0 10^3/uL Red Blood Count 3.89 L 4.30-5.52 10^6/uL Hemoglobin 11.3 L 13.3-17.7 g/dL Hematocrit 34 L 40-54 % Mean Corpuscular Volume 88 80-99 fL Mean Corpuscular Hemoglobin 29 25-34 pg Mean Corpuscular Hemoglobin Concent 33 32-36 g/dL Red Cell Distribution Width 13.2 10.0-14.5 % Platelet Count 349 130-400 10^3/uL Mean Platelet Volume 10.0 9.0-12.2 fL Immature Granulocyte % (Auto) 1 % Neutrophils (%) (Auto) 76 H 42-75 % Lymphocytes (%) (Auto) 10 L 12-44 % Monocytes (%) (Auto) 9 0-12 % Eosinophils (%) (Auto) 4 0-10 % Basophils (%) (Auto) 0 0-10 % Neutrophils # (Auto) 12.1 H 1.8-7.8 10^3/uL Lymphocytes # (Auto) 1.6 1.0-4.0 10^3/uL Monocytes # (Auto) 1.4 H 0.0-1.0 10^3/uL Eosinophils # (Auto) 0.6 H 0.0-0.3 10^3/uL Basophils # (Auto) 0.1 0.0-0.1 10^3/uL Immature Granulocyte # (Auto) 0.2 H 0.0-0.1 10^3/uL Neutrophils % (Manual) 80 % Lymphocytes % (Manual) 9 % Monocytes % (Manual) 5 % Eosinophils % (Manual) 2 % Band Neutrophils 2 % Reactive Lymphocytes 2 % Toxic Granulation 1+ Rouleau SLIGHT Sodium Level 131 L 135-145 MMOL/L Potassium Level 3.4 L 3.6-5.0 MMOL/L Chloride Level 97 L 98-107 MMOL/L Carbon Dioxide Level 22 21-32 MMOL/L Anion Gap 12 5-14 MMOL/L Blood Urea Nitrogen 36 H 7-18 MG/DL Creatinine 2.06 H 0.60-1.30 MG/DL Estimat Glomerular Filtration Rate 32 BUN/Creatinine Ratio 17 Glucose Level 135 H 70-105 MG/DL Lactic Acid Level 1.05 0.50-2.00 MMOL/L Calcium Level 8.4 L 8.5-10.1 MG/DL Corrected Calcium 8.6 8.5-10.1 MG/DL Total Bilirubin 0.3 0.1-1.0 MG/DL Aspartate Amino Transf (AST/SGOT) 16 5-34 U/L Alanine Aminotransferase (ALT/SGPT) 18 0-55 U/L Alkaline Phosphatase 59 40-136 U/L Total Protein 6.8 6.4-8.2 GM/DL Albumin 3.7 3.2-4.5 GM/DL Urine Color YELLOW Urine Clarity SL CLOUDY Urine pH 6.0 5-9 Urine Specific [place] 1.010 L 1.016-1.022 Urine Protein 1+ H NEGATIVE Urine Glucose (UA) NEGATIVE NEGATIVE Urine Ketones NEGATIVE NEGATIVE Urine Nitrite POSITIVE H NEGATIVE Urine Bilirubin NEGATIVE NEGATIVE Urine Urobilinogen 0.2 < = 1.0 MG/DL Urine Leukocyte Esterase 2+ H NEGATIVE Urine RBC (Auto) 3+ H NEGATIVE Urine RBC >100 H /HPF Urine WBC 5-10 H /HPF Urine Squamous Epithelial Cells RARE /HPF Urine Crystals PRESENT H /LPF Urine Amorphous Sediment FEW MAGALIE URATES H /LPF Urine Bacteria FEW H /HPF Urine Casts PRESENT /LPF Urine Hyaline Casts RARE /LPF Urine Mucus MODERATE H /LPF Urine Culture Indicated YES My Orders Orders - NIKKI CARDOZO APRN Cbc With Automated Diff (11/26/20 15:14) Comprehensive Metabolic Panel (11/26/20 15:14) Ua Culture If Indicated (11/26/20 15:14) Blood Culture (11/26/20 15:18) Lactic Acid Analyzer (11/26/20 15:18) Ns Iv 1000 Ml (Sodium Chloride 0.9%) (11/26/20 15:30) Ibuprofen Tablet (Motrin Tablet) (11/26/20 15:30) Ed Iv/Invasive Line Start (11/26/20 15:18) Manual Differential (11/26/20 15:33) Urine Culture (11/26/20 17:12) Medications Given in ED Current Medications Medications Dose Ordered Sig/Julee Route Start Time Stop Time Status Last Admin Dose Admin Ibuprofen 600 mg Q6HR PRN PO 11/26/20 15:30 11/26/20 16:02 600 MG Vital Signs/I&O 11/26/20 15:11 Temp 38.6 Pulse 91 Resp 18 B/P (MAP) 171/77 (108) Pulse Ox 95 Capillary Refill : Departure Impression Primary Impression: Prostatitis Disposition: 09 ADMITTED INPATIENT Condition: Stable Admissions Decision to Admit Reason: Admit from ER (General) Decision to Admit/Date: Nov 26, 2020 Time/Decision to Admit Time: 17:44 Departure-Patient Inst. Referrals: SHARON EARL DO (PCP/Family) Primary Care Physician NIKKI CARDOZO APRN Nov 26, 2020 15:18
[2020-11-26] MEDS ORDERED: IBUPROFEN 600 MG (MOTRIN) TAB PO PRN (15:30)
[2020-11-26] MEDS ORDERED: NS IV 1000 ML 1,000 ML IV SCH (15:30)
[2020-11-26 15:45] LABS: BASOPHILS # (AUTO) 0.1 10^3/uL (0.0-0.1); BASOPHILS % (AUTO) 0 % (0-10); EOSINOPHILS # (AUTO) 0.6 10^3/uL (0.0-0.3); EOSINOPHILS % (AUTO) 4 % (0-10); HEMATOCRIT 34 % (40-54); HEMOGLOBIN 11.3 g/dL (13.3-17.7); LYMPHOCYTES # (AUTO) 1.6 10^3/uL (1.0-4.0); LYMPHOCYTES % (AUTO) 10 % (12-44); MEAN CORPUSCULAR HEMOGLOBIN 29 pg (25-34); MEAN CORPUSCULAR HGB CONC 33 g/dL (32-36); MEAN CORPUSCULAR VOLUME 88 fL (80-99); MONOCYTES # (AUTO) 1.4 10^3/uL (0.0-1.0); MONOCYTES % (AUTO) 9 % (0-12); NEUTROPHILS # (AUTO) 12.1 10^3/uL (1.8-7.8); NEUTROPHILS % (AUTO) 76 % (42-75); PLATELET COUNT 349 10^3/uL (130-400); WHITE BLOOD COUNT 15.9 10^3/uL (4.3-11.0)
[2020-11-26 15:54] LABS: ALBUMIN 3.7 GM/DL (3.2-4.5); POTASSIUM 3.4 MMOL/L (3.6-5.0)
[2020-11-26 15:55] LABS: CALCIUM 8.4 MG/DL (8.5-10.1)
[2020-11-26 15:56] LABS: TOTAL PROTEIN 6.8 GM/DL (6.4-8.2)
[2020-11-26 15:58] LABS: BILIRUBIN,TOTAL 0.3 MG/DL (0.1-1.0)
[2020-11-26 16:00] LABS: CREATININE SERUM 2.06 MG/DL (0.60-1.30)
[2020-11-26 16:02] LABS: BAND NEUTROPHILS 2 %; EOSINOPHILS % (MANUAL) 2 %; LYMPHOCYTES % (MANUAL) 9 %; MONOCYTES % (MANUAL) 5 %; NEUTROPHILS % (MANUAL) 80 %; REACTIVE LYMPHOCYTES 2 %; ROULEAUX SLIGHT; TOXIC GRANULATION/VACUOLAZATIO 1+
[2020-11-26 17:18] LABS: BILIRUBIN,URINE NEGATIVE (NEGATIVE); CLARITY,URINE SL CLOUDY; COLOR,URINE YELLOW; GLUCOSE, URINE (UA) NEGATIVE (NEGATIVE); KETONES,URINE NEGATIVE (NEGATIVE); LEUKOCYTE ESTERASE ,URINE 2+ (NEGATIVE); NITRITE,URINE POSITIVE (NEGATIVE); PROTEIN,URINE 1+ (NEGATIVE)
[2020-11-26 17:25] LABS: AMORPHOUS SEDIMENT,UR FEW AMOR URATES /LPF; BACTERIA,URINE FEW /HPF; RBC,URINE >100 /HPF; SQUAMOUS EPITHELIAL CELL,UR RARE /HPF
[2020-11-26 17:26] LABS: HYALINE CASTS, URINE RARE /LPF
[2020-11-26] MEDS ORDERED: cefTRIAXone FOR IV USE 1,000 MG in WATER (STERILE) FOR INJECTION 10 ML IV ONE (18:00)
[2020-11-26 18:37] VITALS: BP 159/75
[2020-11-26] MEDS: LACTATED RINGERS 1,000 ML IV SCH (18:59)
[2020-11-26] MEDS ORDERED: ACETAMINOPHEN 325 MG TABLET PO PRN (19:00)
[2020-11-26] MEDS ORDERED: LACTATED RINGERS 1,000 ML IV SCH (19:00)
[2020-11-27 00:14] VITALS: BP 128/62
[2020-11-27] MEDS: LACTATED RINGERS 1,000 ML IV SCH ×4 (03:09→20:46)
[2020-11-27 03:11] VITALS: BP 136/61
[2020-11-27 08:00] VITALS: BP 120/66
--- NOTE | 2020-11-27 09:41 | History & Physical-Hospitalist ---
NYLA JACOB,MED STUDENT 11/27/20 0941: History of Present Illness HPI/Chief Complaint Patient is a 75yo male with a PMH of HTN, HLD and GERD presenting to [facility] ED c/o perineal pain for x1 day. He has an indwelling suprapubic catheter and reports a history of urinary tract infections, but denies experiencing similar pain before. He describes the pain as a "burning" pain and locates it to the posterior scrotum. He denies fevers or chills. In the ED, digital rectal exam revealed a large, firm prostate. Urinalysis revealed a UTI, and urine culture revealed Staph. He was started on Rocephin and admitted. Source: patient Exam Limitations: no limitations Date Seen 11/27/20 Attending Physician Jerilyn Otoole MD PCP Ben Enriquez DO Referring Physician Date of Admission Nov 26, 2020 at 17:18 Home Medications & Allergies Home Medications Reviewed patient Home Medication Reconciliation performed by pharmacy medication reconciliations test technician and/or nursing. Patients Allergies have been reviewed. Allergies Allergies Coded Allergies Penicillins (Verified Allergy, Unknown, FROM CHILDHOOD, 05/02/20) Reacted as a child per uncoded allergy Past Ikyvtae-Dktybe-Uevqxy Hx Patient Social History Alcohol Use: Denies Use Recreational Drug Use: No Smoking Status: Never a Smoker 2nd Hand Smoke Exposure: No Recent Foreign Travel: No Contact w/other who traveled: No Recent Hopitalizations: No Recent Infectious Disease Expo: No Immunizations Up To Date Tetanus Booster (TDap): Unknown Date of Pneumonia Vaccine: Jun 23, 2012 Date of Influenza Vaccine: Aug 20, 2020 Seasonal Allergies Seasonal Allergies: Yes Past Medical History Surgeries: Bladder Surgery Cardiac: High Cholesterol, Hypertension Reproductive: No Sexually Transmitted Disease: No HIV/AIDS: No Gastrointestinal: Gastroesophageal Reflux, Hemorrhoids, Polyps HEENT: Double Vision Loss of Vision: Denies Hearing Impairment: Hard of Hearing, Bilateral Hearing Aide Cancer: Skin Psychosocial: Anxiety, Depression History of Blood Disorders: No Adverse Reaction to Blood Oliveira: No (N/A) Family History No Pertinent Family Hx Review of Systems Constitutional: No chills, No dizziness, No fever EENTM: No blurred vision, No double vision, No vision loss Respiratory: No cough, No short of breath, No wheezing Cardiovascular: No chest pain, No edema, No palpitations Gastrointestinal: No abdominal pain, No constipation, No diarrhea, No nausea, No vomiting Genitourinary: see HPI; No hematuria; pain Musculoskeletal: no symptoms reported Skin: no symptoms reported Psychiatric/Neurological: No Symptoms Reported Physical Exam Physical Exam Vital Signs Vital Signs - First Documented 11/26/20 11/26/20 11/26/20 15:11 18:17 18:37 Temp 38.6 Pulse 91 Resp 18 B/P (MAP) 171/77 (108) Pulse Ox 95 O2 Delivery Room Air O2 Flow Rate 0.00 Capillary Refill : Less Than 3 Seconds Height, Weight, BMI Height: 5'8.00" Weight: 155lbs. 0.0oz. 70.821133mz; 36.00 BMI Method:Stated General Appearance: No Apparent Distress, WD/WN HEENT: PERRL/EOMI, Pharynx Normal, Moist Mucous Membranes Neck: Full Range of Motion, Supple Respiratory: Lungs Clear, No Accessory Muscle Use, No Respiratory Distress Cardiovascular: Regular Rate, Rhythm, No Murmur, Normal Peripheral Pulses Gastrointestinal: Normal Bowel Sounds, Non Tender, Soft Extremity: Normal Capillary Refill, Non Tender, No Calf Tenderness Neurologic/Psychiatric: Alert, Oriented x3, Normal Mood/Affect Skin: Normal Color, Warm/Dry Results Results/Procedures Labs Laboratory Tests 11/26/20 15:33 Patient resulted labs reviewed. Assessment/Plan Assessment and Plan UTI with severe sepsis On Rocephin, add vancomycin Blood cultures pending On LR at 125/hr Repeat labs Acute bacterial prostatitis Continue Rocephin, add vancomycin On IV fluids Repeat labs Urology consulted Acute kidney injury On IV fluids D/C ibuprofen Hyponatremia Repeat labs Continue to monitor ALEX JAUREGUI MD 11/27/20 1639: History of Present Illness Time Seen by a Provider: 11:40 Past Jrusmrn-Fdagkq-Vhsojv Hx Past Med/Social Hx: Reviewed Nursing Past Med/Soc Hx Assessment/Plan Admission Diagnosis Severe Sepsis Admission Status: Inpatient Order (span 2 midnights) Reason for Inpatient Admission: see below Assessment and Plan Pt admitted with severe sepsis from UTI/prostatitis. Feeling much better this morning and labs improved. WBC trending down, creatinine improving. Staph growing in culture this morning so will add Vanc given history of somewhat resistant staph epi on last culture. Urology consulted, appreciate assistance. longterm SPT managed by Dr Doyle as an outpatient. Hold home chlorthalidone. due to CHANDRAKANT and DC ibuprofen.Continue IVF. Trend labs. Diagnosis/Problems Diagnosis/Problems (1) Suprapubic catheter dysfunction Status: Acute (2) Prostatitis Status: Acute (3) UTI (urinary tract infection) Status: Acute Supervisory-Addendum Brief Verification & Attestation Participated in pt care: history, MDM, physical Personally performed: exam, history, MDM, supervision of care Care discussed with: Medical Student Procedures: n/a Results interpretation: Verified all documentation Verification and Attestation of Medical Student E/M Service A medical student performed and documented this service in my presence. I reviewed and verified all information documented by the medical student and made modifications to such information, when appropriate. I personally performed the physical exam and medical decision making. Alex Jauregui, Nov 27, 2020,17:19 NYLA JACOB,MED STUDENT Nov 27, 2020 09:41 ALEX JAUREGUI MD Nov 27, 2020 16:39
[2020-11-27] MEDS ORDERED: VANCOMYCIN 1500 MG/NS 500 ML IVPB IV NR ×2 (10:00)
[2020-11-27] MEDS ORDERED: ACETAMINOPHEN 500 MG TAB (TYLENOL) PO PRN (11:30)
[2020-11-27] MEDS ORDERED: FLUT9.9S NSEACH (11:56)
[2020-11-27] MEDS ORDERED: BUPR150T8 PO (11:56)
[2020-11-27] MEDS ORDERED: CYAN500T8 PO (11:56)
[2020-11-27 12:02] VITALS: BP 120/64
[2020-11-27 12:04] LABS: HEMOGLOBIN 10.6 g/dL (13.3-17.7); MEAN PLATELET VOLUME 9.8 fL (9.0-12.2); WHITE BLOOD COUNT 11.3 10^3/uL (4.3-11.0)
[2020-11-27] MEDS ORDERED: ACET-2650 PO (12:18)
[2020-11-27 12:34] LABS: POTASSIUM 3.7 MMOL/L (3.6-5.0)
[2020-11-27 12:36] LABS: CALCIUM 8.2 MG/DL (8.5-10.1)
[2020-11-27 12:40] LABS: CREATININE SERUM 1.64 MG/DL (0.60-1.30)
[2020-11-27 16:34] VITALS: BP 140/58
[2020-11-27] MEDS ORDERED: cefTRIAXone 1,000 MG/SWFI 10 ML IV PUSH IV SCH ×2 (18:00)
[2020-11-27] MEDS: MAGNESIUM OXIDE (MAG-OX)400 MG TAB PO SCH (18:56)
[2020-11-27 19:37] VITALS: BP 147/65
[2020-11-27] MEDS: FAMOTIDINE 20 MG (PEPCID) TABLET PO SCH (20:42)
[2020-11-27] MEDS: FLUTICASONE NASAL SPRAY (FLONASE) 16 GM BTL NS SCH (20:43)
[2020-11-27] MEDS ORDERED: NON-FORMULARY MEDICATION 1 EA EA (Fluticasone Propionate (Flonase Allergy Relief) 1 SPRAY) NSEACH SCH (21:00)
[2020-11-27] MEDS ORDERED: MAGNESIUM OXIDE 420 MG PO SCH (21:00)
[2020-11-28] VITALS: BP 147/68
[2020-11-28 04:18] VITALS: BP 142/65
[2020-11-28] MEDS: LACTATED RINGERS 1,000 ML IV SCH ×2 (04:43→18:46)
[2020-11-28] MEDS: CYANOCOBALAMIN 1,000 MCG (VITAMIN B-12) TABLET PO SCH (05:59)
[2020-11-28] MEDS: KCL 20 MEQ TAB (K-DUR) PO SCH (05:59)
[2020-11-28 08:00] VITALS: BP 149/67
[2020-11-28] MEDS: MAGNESIUM OXIDE (MAG-OX)400 MG TAB PO SCH ×2 (08:26→18:18)
[2020-11-28] MEDS: buPROPion SR 150 MG (WELLBUTRIN SR) TAB PO SCH (08:26)
[2020-11-28] MEDS: FLUTICASONE NASAL SPRAY (FLONASE) 16 GM BTL NS SCH ×2 (08:26→21:00)
[2020-11-28] MEDS ORDERED: NON-FORMULARY MEDICATION 1 EA EA (Potassium Chloride 20 MEQ) PO SCH (09:00)
[2020-11-28] MEDS ORDERED: NON-FORMULARY MEDICATION 1 EA EA (Cyanocobalamin (Vitamin B-12) (Vitamin B-12) 1,000 MCG) PO SCH (09:00)
[2020-11-28] MEDS ORDERED: buPROPion XL 150 MG (WELLBUTRIN XL) NON-FORM PO SCH (09:00)
[2020-11-28] MEDS ORDERED: NON-FORMULARY MEDICATION 1 EA EA (Famotidine 40 MG) PO SCH (09:00)
[2020-11-28] MEDS ORDERED: VANCOMYCIN 1 GM/NS 250 ML IVPB IV SCH ×2 (10:00)
--- NOTE | 2020-11-28 11:09 | Progress Note - Hospitalist ---
NYLA JACOB,MED STUDENT 11/28/20 1109: Subjective HPI/CC On Admission Date Seen by Provider: Nov 28, 2020 Patient is a 75yo male with a PMH of HTN, HLD and GERD presenting to [facility] ED c/o perineal pain for x1 day. He has an indwelling suprapubic catheter and reports a history of urinary tract infections, but denies experiencing similar pain befo re. He describes the pain as a "burning" pain and locates it to the posterior scrotum. He denies fevers or chills. In the ED, digital rectal exam revealed a large, firm prostate. Urinalysis revealed a UTI, and urine culture revealed Staph. He was started on Rocephin and admitted. Subjective/Events-last exam Doing well today, denies any new concerns. Continues to have good urine output, on LR at 125/hr. Urine culture positive for Staph epidermidis. Focused Exam Lactate Level 11/26/20 15:33: Lactic Acid Level 1.05 Objective Exam Vital Signs Vital Signs Date Time Temp Pulse Resp B/P (MAP) Pulse Ox O2 Delivery O2 Flow Rate FiO2 11/28/20 09:00 Room Air 11/28/20 08:00 36.2 80 18 149/67 (94) 98 11/27/20 03:11 0.00 Capillary Refill : Less Than 3 Seconds General Appearance: No Apparent Distress, WD/WN HEENT: PERRL/EOMI, Pharynx Normal Neck: Full Range of Motion, Supple Respiratory: Lungs Clear, No Accessory Muscle Use, No Respiratory Distress Cardiovascular: Regular Rate, Rhythm, No Murmur, Normal Peripheral Pulses Gastrointestinal: Normal Bowel Sounds, Non Tender, Soft Extremity: Non Tender, No Calf Tenderness Neurologic/Psychiatric: Alert, Oriented x3, Normal Mood/Affect Skin: Normal Color, Warm/Dry Results/Procedures Lab Laboratory Tests 11/27/20 11:55 Patient resulted labs reviewed. Assessment/Plan Assessment and Plan Assess & Plan/Chief Complaint UTI with severe sepsis On Rocephin and vancomycin Urine culture positive for Staph epidermidis Blood cultures negative On LR at 125/hr Acute bacterial prostatitis Continue Rocephin and vancomycin On IV fluids Urology consulted Acute kidney injury On IV fluids D/C ibuprofen Hyponatremia On IV fluids Continue to monitor ALEX JAUREGUI MD 2/9/21 1305: Subjective HPI/CC On Admission Time Seen by Provider: 10:45 Assessment/Plan Assessment and Plan Assess & Plan/Chief Complaint Patient reports feeling much better today. Reviewed micro results from outpatient encounter and he is again growing MDRO. Discussed with pharmacy and will start him on high dose Merrem to cover. Supervisory-Addendum Brief Verification & Attestation Participated in pt care: history, MDM, physical Personally performed: exam, history, MDM, supervision of care Care discussed with: Medical Student Procedures: n/a Results interpretation: Verified all documentation Verification and Attestation of Medical Student E/M Service A medical student performed and documented this service in my presence. I reviewed and verified all information documented by the medical student and made modifications to such information, when appropriate. I personally performed the physical exam and medical decision making. Alex Jauregui, Nov 28, 2020,13:03 NYLA JACOB,MED STUDENT Nov 28, 2020 11:09 ALEX JAUREGUI MD Nov 28, 2020 13:05
--- NOTE | 2020-11-28 11:22 | Physician Query Clarification ---
"Physician Query-General Query to Physician: The medical record reflects the following clinical scenario: History/Risk factors: Indwelling suprapubic catheter, History of UTIs Clinical Findings: urine culture revealed Staph, Perineal pain Treatment: IVFs, Vancomycin, Ceftriaxone, Urology consult Question: Can you specify if the UTI with severe sepsis is due to/associated with indwelling supra pubic catheter? 1. Yes - UTI with severe sepsis is due to/associated with indwelling Supra pubic catheter 2. No - UTI with severe sepsis is not due to/associated with indwelling Supra Pubic Catheter 3. Other, with explanation of the clinical findings 4. Clinically undetermined, no explanation for the clinical findings Please remember a lack of response to the above will prompt a phone page by CDI/coding staff. In responding to this query, please exercise your independent professional judgment. The purpose of this communication is to more accurately reflect the complexity of your patients condition. The fact that a question is asked does not imply that any particular answer is desired or expected. Thank you for timely response to this clarification. Joyce Neves, MSN, RN RN Specialist-Clinical Doc Improvement CD -Health Info Mgmt Operations [address] [facility] t: [phone] | f: [phone] If you are unable to reach me at my extension, I may be working from home. Please contact me at [phone] PHYSICIAN RESPONSE: Based on the clinical findings in the record, please respond to the query above on this document as an addendum. Physician Response: Physician Response 1 If you have questions please contact: Housekeeping Director: Ext: Thank you for your time and cooperation. Clinical Table Games Dual Rate Supervisor/Housekeeping Director This is a permanent part of the medical record JOYCE NEVES Nov 28, 2020 11:22 ALEX BEJARANO MD Nov 28, 2020 14:55"
[2020-11-28] MEDS ORDERED: SENNA W/DOCUSATE (SENOKOT S) TABLET PO PRN (11:45)
[2020-11-28 12:00] VITALS: BP 131/64
--- NOTE | 2020-11-28 12:00 | CONSULTATION REPORT ---
DATE OF SERVICE: 11/28/2020 ATTENDING PHYSICIAN: Dr. Jauregui. SUMMARY: A 75-year-old white man known to me with history of neurogenic bladder and urinary retention that failed medical treatment. His prostate size was 27 mL and his rectal exam at the office has always been flat to 1+ nontender elastic prostate. His PSA is normal. His suprapubic tube has been changed at the office on a regular basis with no issues. Last time I saw him was in July of last year and he was doing well. He has been admitted from the emergency room with the presumptive diagnosis of acute prostatitis and sepsis, which I disagree with the patient was started on antibiotic and IV fluid and feeling better. Urine is valerie and clear. IMPRESSION: UTI, gout, prostatitis or sepsis. RECOMMENDATIONS: Continue present management. May discharged tomorrow on p.o. antibiotic and follow up his usual at the office. Job ID: [id number] DocumentID: [id number] Dictated Date: 11/28/2020 11:43:01 Dough Mixer Helper Date: 11/28/2020 11:59:20 Dictated By: FABIANA CUELLAR MD
[2020-11-28] MEDS: MEROPENEM 2 GM/NS 100 ML IVPB IV SCH ×4 (13:19→23:53)
[2020-11-28 16:23] VITALS: BP 125/58
[2020-11-28 20:00] VITALS: BP 149/65
[2020-11-28] MEDS: FAMOTIDINE 20 MG (PEPCID) TABLET PO SCH (20:59)
[2020-11-29] VITALS: BP 139/72
[2020-11-29 04:00] VITALS: BP 135/71
[2020-11-29] MEDS: KCL 20 MEQ TAB (K-DUR) PO SCH (05:46)
[2020-11-29] MEDS: CYANOCOBALAMIN 1,000 MCG (VITAMIN B-12) TABLET PO SCH (05:46)
[2020-11-29 06:24] LABS: HEMOGLOBIN 9.5 g/dL (13.3-17.7); MEAN PLATELET VOLUME 9.8 fL (9.0-12.2); WHITE BLOOD COUNT 14.7 10^3/uL (4.3-11.0)
[2020-11-29 06:28] LABS: POTASSIUM 3.7 MMOL/L (3.6-5.0)
[2020-11-29 06:29] LABS: CALCIUM 8.1 MG/DL (8.5-10.1)
[2020-11-29 06:34] LABS: CREATININE SERUM 1.26 MG/DL (0.60-1.30)
[2020-11-29 08:00] VITALS: BP 127/60
[2020-11-29] MEDS ORDERED: TROUGH ORDER-PHARMACY XX ONE (09:00)
[2020-11-29] MEDS: MAGNESIUM OXIDE (MAG-OX)400 MG TAB PO SCH ×2 (09:15→17:59)
[2020-11-29] MEDS: FLUTICASONE NASAL SPRAY (FLONASE) 16 GM BTL NS SCH ×2 (09:15→20:10)
[2020-11-29] MEDS: buPROPion SR 150 MG (WELLBUTRIN SR) TAB PO SCH (09:15)
[2020-11-29] MEDS ORDERED: VANCOMYCIN INJECTION 1,500 MG in NS IV 500 ML 500 ML IV SCH (10:00)
--- NOTE | 2020-11-29 11:42 | Physical Therapy Evaluation ---
PT Evaluation-General Medical Diagnosis Admission Date Nov 26, 2020 at 17:18 Medical Diagnosis: prostatitis, UTI Onset Date: Nov 27, 2020 Therapy Diagnosis Therapy Diagnosis: impaired mobility, balance Height/Weight Height (Feet): 5 Height (Inches): 8.00 Weight (Pounds): 155 Weight (Ounces): 0.0 Precautions Precautions/Isolations: Contact Isolation, Standard Precautions Referral Physician: Juventino Reason for Referral: Evaluation/Treatment Medical History Additional Medical History Past Medical History Surgeries: Bladder Surgery Cardiac: High Cholesterol, Hypertension Reproductive: No Sexually Transmitted Disease: No HIV/AIDS: No Gastrointestinal: Gastroesophageal Reflux, Hemorrhoids, Polyps HEENT: Double Vision Loss of Vision: Denies Hearing Impairment: Hard of Hearing, Bilateral Hearing Aide Cancer: Skin Psychosocial: Anxiety, Depression History of Blood Disorders: No Reviewed History: Yes Social History Home: Apartment Current Living Status: Alone Entry Into Home: Level Entry Prior Prior Level of Function SCALE: Activities may be completed with or without assistive devices. 7-Tgmueeplzl-miszfad completes the activity by him/herself with no assistance from a helper. 5-Set-up or Clean-up Assistance-helper sets up or cleans up; patient completes activity. [place] assists only prior to or following the activity. 4-Supervision or Touching Assistance-helper provides verbal cues and/or touching/steadying and/or contact guard assistance as patient completes activity. Assistance may be provided throughout the activity or intermittently. 3-Partial/Moderate Assistance-helper does LESS THAN HALF the effort. [place] lifts, holds or supports trunk or limbs, but provides less than half the effort. 2-Substantial/Maximal Assistance-helper does MORE THAN HALF the effort. [place] lifts or holds trunk or limbs and provides more than half the effort. 9-Fgtiyhlrx-tnftmh does ALL the effort. Patient does none of the effort to complete the activity. Or, the assistance of 2 or more helpers is required for the patient to complete the activity. If activity was not attempted, code reason: 7-Patient Refused. 9-Not Applicable-not attempted and the patient did not perform the activity before the current illness, exacerbation or injury. 10-Not Attempted due to Environmental Limitations-(lack of equipment, weather restraints, etc.). 88-Not Attempted due to Medical Conditions or Safety Concerns. Bed Mobility: 6 Transfers (B,C,W/C): 6 Gait: 6 Indoor Mobility (Ambulation): Independent PT Evaluation-Current Subjective Patient in recliner pre tx, agrees to PT, has no complaints of pain. Pt/Family Goals patient states his goal to complete his antibiotics and go home Objective Patient Orientation: Person, Place, Situation Attachments: Monk Catheter, IV ROM/Strength ROM Lower Extremities WNL Strength Lower Extremities LLE (hip flexion 5/5, knee flexion 5/5, knee extension 5/5, dorsiflexion 5/5), RLE (hip flexion 5/5, knee flexion 5/5, knee extension 5/5, dorsiflexion 5/5) Sensory Hearing: Functional Sensation Right Lower Extremit: Intact Sensation Left Lower Extremity: Intact Transfers Sit to Stand (QC): 4 Chair/Aah-os-Kqvxj Xfer(QC): 4 SBA Gait Does the Patient Walk?: Yes Mode of Locomotion: Walk Anticipated Mode of Locomotion: Walk Walk 10 feet (QC): 4 Walk 50 ft with 2 Turns(QC): 4 Walk 150 ft (QC): 4 Distance: 160' Gait Assistive Device: None Comments/Gait Description no AD but patient has moments of unsteadiness especially when turning but no carin LOB Balance Sitting Static: Normal Sitting Dynamic: Normal Standing Static: Good Standing Dynamic: Fair Treatment BLE seated exercises x20 (AP, LAQ) Assessment/Needs Patient has impaired mobility, and balance during ambulation. Patient in recliner post tx with nurse call, phone, tray, all needs met. Patient needs CGA with ambulation but no AD. Rehab Potential: Fair PT Long-Term Goals Long-Term Goals PT Concrete Products Machine Operator Goals Time Frame: Dec 06, 2020 Roll Left & Right (QC): 6 Sit to Lying (QC): 6 Lying-Sitting on Side/Bed(QC): 6 Sit to Stand (QC): 6 Chair/Taj-cz-Arsxr Xfer(QC): 6 Walk 10 feet (QC): 6 Walk 50ft with 2 Turns (QC): 6 Walk 150 ft (QC): 6 PT Plan Problem List Problem List: Activity Tolerance, Functional Strength, Safety, Balance, Gait, Transfer Treatment/Plan Treatment Plan: Continue Plan of Care Treatment Plan: Education, Functional Activity Rachna, Functional Strength, Gait, Safety, Therapeutic Exercise, Transfers Treatment Duration: Dec 06, 2020 Frequency: 6 times per week Estimated Hrs Per Day: .25 hour per day Patient and/or Family Agrees t: Yes Safety Risks/Education Patient Education: Gait Training, Transfer Techniques, Correct Positioning, Safety Issues Teaching Recipient: Patient Teaching Methods: Demonstration, Discussion Response to Teaching: Reinforcement Needed Discharge Recommendations Plan Patient will perform bed mobility and transfer training, balance and endurance training, functional strengthening, stair training, gait training, and edu cation, to improve functional mobility and independence at home. Therapy Discharge Recommendati: Scheduled Assistance Time/GCodes Time In: 1120 Time Out: 1132 Total Billed Treatment Time: 12 Total Billed Treatment 1 visit ALIX Johnson' AUTUMN PONCE PT Nov 29, 2020 11:42
--- NOTE | 2020-11-29 11:45 | Progress Note - Urology ---
Progress Note-Urology Progress Notes/Assess & Plan Progress/Assessment & Plan KEEP PREVIOUS OFFICE APPOINTMENTS Final Diagnosis UTI FABIANA CUELLAR MD Nov 29, 2020 11:45
--- NOTE | 2020-11-29 11:55 | Progress Note - Hospitalist ---
NYLA JACOB,MED STUDENT 11/29/20 1155: Subjective HPI/CC On Admission Date Seen by Provider: Nov 29, 2020 Patient is a 75yo male with a PMH of HTN, HLD and GERD presenting to [facility] ED c/o perineal pain for x1 day. He has an indwelling suprapubic catheter and reports a history of urinary tract infections, but denies experiencing similar pain be fore. He describes the pain as a "burning" pain and locates it to the posterior scrotum. He denies fevers or chills. In the ED, digital rectal exam revealed a large, firm prostate. Urinalysis revealed a UTI, and urine culture revealed Staph. He was started on Rocephin and admitted. Subjective/Events-last exam Doing better this morning, no new concerns. Denies fevers, chills, CP, SOB, n/v/d. Focused Exam Lactate Level 11/26/20 15:33: Lactic Acid Level 1.05 Objective Exam Vital Signs Vital Signs Date Time Temp Pulse Resp B/P (MAP) Pulse Ox O2 Delivery O2 Flow Rate FiO2 11/29/20 08:00 36.7 88 18 127/60 (82) 93 Room Air 11/27/20 03:11 0.00 Capillary Refill : Less Than 3 Seconds General Appearance: No Apparent Distress, WD/WN HEENT: PERRL/EOMI, Pharynx Normal Neck: Full Range of Motion, Non Tender Respiratory: Lungs Clear, No Accessory Muscle Use, No Respiratory Distress Cardiovascular: Regular Rate, Rhythm, No Murmur, Normal Peripheral Pulses Gastrointestinal: Normal Bowel Sounds, Non Tender, Soft Extremity: Normal Capillary Refill, Non Tender, No Pedal Edema Neurologic/Psychiatric: Alert, Oriented x3, Normal Mood/Affect Skin: Normal Color, Warm/Dry Results/Procedures Lab Laboratory Tests 11/29/20 06:07 Patient resulted labs reviewed. Assessment/Plan Assessment and Plan Assess & Plan/Chief Complaint UTI with severe sepsis Urine culture positive for Staph epidermidis and MDRO On vancomycin, added Merrem Blood cultures negative Urology following, will f/u as an outpatient Acute kidney injury Creatinine improved DC IV fluids, continue to monitor Hyponatremia Resolved ALEX JAUREGUI MD 11/29/20 1450: Subjective HPI/CC On Admission Time Seen by Provider: 11:15 Assessment/Plan Assessment and Plan Assess & Plan/Chief Complaint Pt reports feeling better today. Only complaint is about IV beeping and feeling chained to the IV pole. Creatinine improved so will DC IVF. Discussed sensitivities of his cultures and need for IV abx in the hospital. Swing bed evaluation placed. Supervisory-Addendum Brief Verification & Attestation Participated in pt care: history, MDM, physical Personally performed: exam, history, MDM, supervision of care Care discussed with: Medical Student Procedures: n/a Results interpretation: Verified all documentation Verification and Attestation of Medical Student E/M Service A medical student performed and documented this service in my presence. I reviewed and verified all information documented by the medical student and made modifications to such information, when appropriate. I personally performed the physical exam and medical decision making. Alex Jauregui, Nov 29, 2020,14:48 NYLA JACOB,MED STUDENT Nov 29, 2020 11:55 ALEX JAUREGUI MD Nov 29, 2020 14:50
[2020-11-29 12:00] VITALS: BP 142/67
[2020-11-29] MEDS: MEROPENEM 2 GM/NS 100 ML IVPB IV SCH ×2 (15:44)
[2020-11-29 16:00] VITALS: BP 139/67
[2020-11-29 19:55] VITALS: BP 141/66
[2020-11-29] MEDS: FAMOTIDINE 20 MG (PEPCID) TABLET PO SCH (20:09)
[2020-11-30 00:43] VITALS: BP 135/61
[2020-11-30] MEDS: MEROPENEM 2 GM/NS 100 ML IVPB IV SCH ×2 (03:04)
[2020-11-30 04:37] LABS: HEMOGLOBIN 9.3 g/dL (13.3-17.7); MEAN PLATELET VOLUME 9.9 fL (9.0-12.2); WHITE BLOOD COUNT 13.3 10^3/uL (4.3-11.0)
[2020-11-30 04:39] LABS: POTASSIUM 3.5 MMOL/L (3.6-5.0)
[2020-11-30 04:45] LABS: CREATININE SERUM 1.42 MG/DL (0.60-1.30)
[2020-11-30 04:46] VITALS: BP 143/61
[2020-11-30] MEDS: CYANOCOBALAMIN 1,000 MCG (VITAMIN B-12) TABLET PO SCH (06:29)
[2020-11-30] MEDS: KCL 20 MEQ TAB (K-DUR) PO SCH (06:29)
[2020-11-30] MEDS: buPROPion SR 150 MG (WELLBUTRIN SR) TAB PO SCH (07:35)
[2020-11-30] MEDS: FLUTICASONE NASAL SPRAY (FLONASE) 16 GM BTL NS SCH (07:35)
[2020-11-30] MEDS: MAGNESIUM OXIDE (MAG-OX)400 MG TAB PO SCH (07:35)
[2020-11-30 08:00] VITALS: BP 124/59
--- NOTE | 2020-11-30 11:14 | Physical Therapy Daily Note ---
PT Daily Note-Current Subjective Patient agrees to PT. No c/o. Mental Status Patient Orientation: Normal For Age Attachments: Suprapubic Catheter Transfers SCALE: Activities may be completed with or without assistive devices. 4-Ibfikqzmjp-rmogswh completes the activity by him/herself with no assistance from a helper. 5-Set-up or Clean-up Assistance-helper sets up or cleans up; patient completes activity. [place] assists only prior to or following the activity. 4-Supervision or Touching Assistance-helper provides verbal cues and/or touching/steadying and/or contact guard assistance as patient completes activity. Assistance may be provided throughout the activity or intermittently. 3-Partial/Moderate Assistance-helper does LESS THAN HALF the effort. [place] lifts, holds or supports trunk or limbs, but provides less than half the effort. 2-Substantial/Maximal Assistance-helper does MORE THAN HALF the effort. [place] lifts or holds trunk or limbs and provides more than half the effort. 1-Wpfoelqwp-udbmty does ALL the effort. Patient does none of the effort to complete the activity. Or, the assistance of 2 or more helpers is required for the patient to complete the activity. If activity was not attempted, code reason: 7-Patient Refused. 9-Not Applicable-not attempted and the patient did not perform the activity before the current illness, exacerbation or injury. 10-Not Attempted due to Environmental Limitations-(lack of equipment, weather restraints, etc.). 88-Not Attempted due to Medical Conditions or Safety Concerns. Sit to Stand (QC): 6 Gait Training Does the Patient Walk?: Yes Distance: 600' Walk 10 feet (QC): 6 Walk 50 ft with 2 Turns(QC): 6 Walk 150 ft (QC): 6 Gait Assistive Device: None safe and functional with no deviation Assessment Patient in toilet with nursing notified. PT instructed nursing to ambulate with patient PRN. PT will see patient x 1 more session in a.m. PT Chcf Goals Reformatory Attendant Goals PT Chcf Goals Time Frame: Dec 06, 2020 Roll Left & Right (QC): 6 Sit to Lying (QC): 6 Lying-Sitting on Side/Bed(QC): 6 Sit to Stand (QC): 6 Chair/Wqc-ek-Ygqkm Xfer(QC): 6 Walk 10 feet (QC): 6 Walk 50ft with 2 Turns (QC): 6 Walk 150 ft (QC): 6 PT Plan Treatment/Plan Treatment Plan: Continue Plan of Care Treatment Plan: Education, Functional Activity Rachna, Functional Strength, Gait, Safety, Therapeutic Exercise, Transfers Treatment Duration: Dec 06, 2020 Frequency: 6 times per week Estimated Hrs Per Day: .25 hour per day Patient and/or Family Agrees t: Yes Time/GCodes Time In: 1026 Time Out: 1035 Total Billed Treatment Time: 9 Total Billed Treatment 1 visit FA 9 min RUBA CUTLER PT Nov 30, 2020 11:14
[2020-11-30 12:00] VITALS: BP 133/63
--- NOTE | 2020-11-30 13:08 | Discharge Summary ---
Diagnosis/Chief Complaint Date of Admission Nov 26, 2020 at 17:18 Date of Discharge Discharge Date: Nov 29, 2020 Admission Diagnosis Severe Sepsis Primary Care Ben Enriquez DO Discharge Diagnosis (1) Suprapubic catheter dysfunction Status: Acute (2) Prostatitis Status: Acute (3) UTI (urinary tract infection) Status: Acute Discharge Summary Procedures/Consulations Urology- Dr Doyle Discharge Physical Exam Allergies: Coded Allergies: Penicillins (Verified Allergy, Unknown, FROM CHILDHOOD, 05/02/20) Reacted as a child per uncoded allergy Vitals & I&Os Vital Signs Date Time Temp Pulse Resp B/P (MAP) Pulse Ox O2 Delivery O2 Flow Rate FiO2 11/30/20 12:00 35.8 110 18 133/63 (86) 96 Room Air 11/30/20 08:00 0.00 General Appearance: No Apparent Distress, WD/WN Respiratory: Lungs Clear, No Respiratory Distress Cardiovascular: Regular Rate, Rhythm, No Murmur Gastrointestinal: Normal Bowel Sounds, Non Tender, Soft Neurologic/Psychiatric: Alert, Oriented x3 Hospital Course Pt was admitted with severe sepsis due to UTI due to SPT. Cultures were done and revealed MDRO Myroides odoratimimus. He was started on high dose Merrem for this. He also had a resistent staph epi and Vanc was continued. He was discharged to swing bed status for continue strengthening and IV abx. Labs (last 24 hrs) Microbiology 11/26/20 Urine Culture - Final, Complete Staphylococcus epidermidis Myroides odoratimimus 11/26/20 Blood Culture - Final, Complete No growth Patient resulted labs reviewed. Discussion & Recommendations Discharge Planning: >30 minutes discharge planning Discharge Home Medications: Active Scripts Active Reported Tylenol Arthritis (Acetaminophen) 650 Mg Tablet.er 650 Mg PO BID PRN Flonase Allergy Relief (Fluticasone Propionate) 9.9 Ml [place].susp 1 [place] NSEACH BID 2 SPRAYS PER NOSTRIL DAILY X 2 DAYS THEN 1 SPRAY DAILY Vitamin B-12 (Cyanocobalamin (Vitamin B-12)) 500 Mcg Tablet 1,000 Mcg PO DAILY TAKES 2 (500MCG) TABS Bupropion Xl (Bupropion HCl) 150 Mg Tab.er.24h 150 Mg PO DAILY Famotidine 40 Mg Tablet 40 Mg PO DAILY Atorvastatin Calcium 80 Mg Tablet 40 Mg PO HS TAKES OF AN 80MG TAB Potassium Chloride 20 Meq Tablet.er 20 Meq PO DAILY Magnesium Oxide 420 Mg Tablet 420 Mg PO BID Atenolol-Chlorthalidone 50-25 (Atenolol/Chlorthalidone) 1 Each Tablet 1 Each PO DAILY Instructions to patient/family Please see electronic discharge instructions given to patient. ALEX BEJARANO MD Nov 30, 2020 13:08
[2020-11-30] MEDS ORDERED: VANCOMYCIN INJECTION 1,500 MG in NS IV 500 ML 500 ML IV SCH (14:30)
[2020-12-01] MEDS ORDERED: TROUGH ORDER-PHARMACY XX NR (13:30)
== END 2020-11-30 13:09 | disposition swing bed (61) | DRG 698 ==
LOC: EDUNIT# 15:02 → ER 15:05 → 4TH 17:18
PROVIDERS: ADMIT Internal Medicine; ATTEND Internal Medicine
DX: T83.511A Infection and inflammatory reaction due to indwelling urethral catheter, initial encounter (principal); A41.9 Sepsis, unspecified organism; R65.20 Severe sepsis without septic shock; N41.0 Acute prostatitis; N17.9 Acute kidney failure, unspecified; E87.1 Hypo-osmolality and hyponatremia; N39.0 Urinary tract infection, site not specified; E78.00 Pure hypercholesterolemia, unspecified; I10 Essential (primary) hypertension; K21.9 Gastro-esophageal reflux disease without esophagitis; M10.9 Gout, unspecified; F41.9 Anxiety disorder, unspecified; F32.9 Major depressive disorder, single episode, unspecified; Z88.0 Allergy status to penicillin
CPT/HCPCS: 36415; 76937; 80048; 80053; 80202; 81000; 83605; 85007; 85027; 87040; 87077; 87088; 94760; 96361; 96374

== ENCOUNTER 2020-11-30 13:34 | Inpatient (IN) | payer MEDICARE, MEDICAID ==
[~2020-11-30] VITALS: Ht 172.7 cm; Wt 111.2 kg
[~2020-11-30 13:34] MED LIST changes: +ACET-2650 PO; +ACETAMINOPHEN 325 MG TABLET PO PRN; +ACETAMINOPHEN 500 MG TAB (TYLENOL) PO PRN; +BUPR150T8 PO; +CYAN500T8 PO; +FLUT9.9S NSEACH; +MEROPENEM 2,000 MG in NS (IVPB) 100 ML IV SCH; +SENNA W/DOCUSATE (SENOKOT S) TABLET PO PRN; +TROUGH ORDER-PHARMACY XX NR
[2020-11-30] MEDS: MEROPENEM 2,000 MG in NS (IVPB) 100 ML IV SCH (15:02)
[2020-11-30] MEDS: VANCOMYCIN INJECTION 1,500 MG in NS IV 500 ML 500 ML IV SCH (15:27)
[2020-11-30] MEDS: MAGNESIUM OXIDE (MAG-OX)400 MG TAB PO SCH (17:00)
[2020-11-30 18:00] VITALS: BP 127/68
[2020-11-30] MEDS: FLUTICASONE NASAL SPRAY (FLONASE) 16 GM BTL NS SCH (20:15)
[2020-11-30] MEDS: FAMOTIDINE 20 MG (PEPCID) TABLET PO SCH (20:15)
[2020-12-01] MEDS: MEROPENEM 2,000 MG in NS (IVPB) 100 ML IV SCH ×2 (02:20→15:10)
[2020-12-01 05:19] VITALS: BP 124/62
[2020-12-01] MEDS: CYANOCOBALAMIN 1,000 MCG (VITAMIN B-12) TABLET PO SCH (06:00)
[2020-12-01] MEDS: KCL 20 MEQ TAB (K-DUR) PO SCH (06:00)
[2020-12-01] MEDS: FLUTICASONE NASAL SPRAY (FLONASE) 16 GM BTL NS SCH ×2 (08:21→19:38)
[2020-12-01] MEDS: buPROPion SR 150 MG (WELLBUTRIN SR) TAB PO SCH (08:21)
[2020-12-01] MEDS: MAGNESIUM OXIDE (MAG-OX)400 MG TAB PO SCH ×2 (08:21→17:05)
--- NOTE | 2020-12-01 10:43 | Physical Therapy Evaluation ---
PT Evaluation-General Medical Diagnosis Admission Date Nov 30, 2020 at 13:34 Medical Diagnosis: prostatitis/UTI Onset Date: Nov 27, 2020 Therapy Diagnosis Therapy Diagnosis: debility Height/Weight Height (Feet): 5 Height (Inches): 8.00 Weight (Pounds): 155 Weight (Ounces): 0.0 Precautions Precautions/Isolations: Fall Prevention, Standard Precautions Referral Physician: Dorinda Reason for Referral: Evaluation/Treatment Medical History Pertinent Medical History: HTN Additional Medical History suprapubic catheter Current History SWB status Reviewed History: Yes Social History Home: Apartment Current Living Status: Alone Entry Into Home: Level Entry Prior Prior Level of Function SCALE: Activities may be completed with or without assistive devices. 6-Ketilaxaqr-zuckqsi completes the activity by him/herself with no assistance from a helper. 5-Set-up or Clean-up Assistance-helper sets up or cleans up; patient completes activity. [place] assists only prior to or following the activity. 4-Supervision or Touching Assistance-helper provides verbal cues and/or touching/steadying and/or contact guard assistance as patient completes activity. Assistance may be provided throughout the activity or intermittently. 3-Partial/Moderate Assistance-helper does LESS THAN HALF the effort. [place] lifts, holds or supports trunk or limbs, but provides less than half the effort. 2-Substantial/Maximal Assistance-helper does MORE THAN HALF the effort. [place] lifts or holds trunk or limbs and provides more than half the effort. 2-Dppqsrygh-bpuvka does ALL the effort. Patient does none of the effort to complete the activity. Or, the assistance of 2 or more helpers is required for the patient to complete the activity. If activity was not attempted, code reason: 7-Patient Refused. 9-Not Applicable-not attempted and the patient did not perform the activity before the current illness, exacerbation or injury. 10-Not Attempted due to Environmental Limitations-(lack of equipment, weather restraints, etc.). 88-Not Attempted due to Medical Conditions or Safety Concerns. Bed Mobility: 6 Transfers (B,C,W/C): 6 Gait: 6 Indoor Mobility (Ambulation): Independent Stairs: Not [place] Prior Devices Use: None PT Evaluation-Current Subjective Patient agrees to PT. No c/o. Objective Patient Orientation: Normal For Age ROM/Strength ROM Lower Extremities bilateral LE WFL Strength Lower Extremities LLE (hip flexion 5/5, knee flexion 5/5, knee extension 5/5, dorsiflexion 5/5), RLE (hip flexion 5/5, knee flexion 5/5, knee extension 5/5, dorsiflexion 5/5) Integumentary/Posture Integumentary refer to nursing notes Bowel Incontinence: No Bladder Incontinence: Monk Cath Posture WFL Neuromuscular (Tone, Coordination, Reflexes) grossly intact with all Sensory Vision: Wears Glasses Hearing: Impaired Transfers Roll Left & Right (QC): 6 Sit to Lying (QC): 6 Lying to Sitting/Side of Bed(Q: 6 Sit to Stand (QC): 5 Chair/Isz-en-Rzjat Xfer(QC): 5 Toilet Transfer (QC): 5 Car Transfer (QC): 5 Gait Does the Patient Walk?: Yes Mode of Locomotion: Walk Anticipated Mode of Locomotion: Walk Walk 10 feet (QC): 5 Walk 50 ft with 2 Turns(QC): 5 Walk 150 ft (QC): 5 Walking 10ft/uneven surface-QC: 5 Distance: 800' Gait Assistive Device: None Comments/Gait Description safe and functional with no deviation Wheelchair Training Does the Pt Use a Wheelchair?: No Wheel 50 ft with 2 turns (QC): 9 Wheel 150 ft (QC): 9 Stairs #of Steps: 1 1 Step (curb) (QC): 5 4 Steps (QC): 9 12 Steps (QC): 9 Balance Sitting Static: Normal Sitting Dynamic: Normal Standing Static: Normal Standing Dynamic: Normal Picking up an Object (QC): 6 (seated position) Treatment Patient ambulated 800' with Normal balance. PT assist to hold catheter bag during ambulation. Bilateral LE seated exercises 15 reps each AP, LAQ and hip flexion. Assessment/Needs 75 y.o. male, will benefit from short term skilled PT to address functional strength and mobility to ensure safe return to home at maximum LOF. Rehab Potential: Fair PT Cloud Engineer Goals Snf Goals PT Snf Goals Time Frame: Dec 16, 2020 Roll Left & Right (QC): 6 Sit to Lying (QC): 6 Lying-Sitting on Side/Bed(QC): 6 Sit to Stand (QC): 6 Chair/Mwg-le-Delbb Xfer(QC): 6 Toilet Transfer (QC): 6 Car Transfer (QC): 6 Does the Patient Walk: Yes Walk 10 feet (QC): 6 Walk 50ft with 2 Turns (QC): 6 Walk 150 ft (QC): 6 Walking 10ft on Uneven Surface: 6 1 Step (curb) (QC): 6 4 Steps (QC): 9 12 Steps (QC): 9 Picking up an Object (QC): 6 (seated position) Wheel 50 feet with 2 turns (QC: 9 Wheel 150 feet: 9 PT Plan Treatment/Plan Treatment Plan: Continue Plan of Care Treatment Plan: Education, Functional Activity Rachna, Functional Strength, Gait, Safety, Therapeutic Exercise, Transfers Treatment Duration: Dec 16, 2020 Frequency: 6 times per week Estimated Hrs Per Day: .25 hour per day Patient and/or Family Agrees t: Yes Time/GCodes Time In: 905 Time Out: 928 Total Billed Treatment Time: 23 Total Billed Treatment 1 visit EVModC 8 min FA 15 min RUBA CUTLER PT Dec 01, 2020 10:43
[2020-12-01] MEDS ORDERED: TROUGH ORDER-PHARMACY XX NR (13:30)
[2020-12-01] MEDS: VANCOMYCIN INJECTION 1,500 MG in NS IV 500 ML 500 ML IV SCH (15:10)
[2020-12-01] MEDS ORDERED: COLCHICINE 0.6 MG (COLCRYS) TABLET PO NR (16:00)
--- NOTE | 2020-12-01 16:01 | Progress Note - Hospitalist ---
Subjective HPI/CC On Admission Date Seen by Provider: Dec 01, 2020 Time Seen by Provider: 15:57 Subjective/Events-last exam Pt reports feeling well. Had some toe pain consistent with previous episodes of gout. Objective Exam Vital Signs Vital Signs Date Time Temp Pulse Resp B/P (MAP) Pulse Ox O2 Delivery O2 Flow Rate FiO2 12/01/20 08:15 Room Air 12/01/20 05:19 36.0 96 18 124/62 (82) 96 Capillary Refill : General Appearance: No Apparent Distress, WD/WN Respiratory: Lungs Clear, No Respiratory Distress Cardiovascular: Regular Rate, Rhythm, No Murmur Neurologic/Psychiatric: Alert, Oriented x3 Results/Procedures Lab Patient resulted labs reviewed. Assessment/Plan Assessment and Plan Assess & Plan/Chief Complaint MDRO UTI Urine culture positive for Staph epidermidis and MDRO On vancomycin, added Merrem Blood cultures negative Urology following, will f/u as an outpatient PT/OT Gout Start colchicine CrCl 73- no dose adjustment needed DVT ppx: Lovenox Diagnosis/Problems Diagnosis/Problems (1) UTI (urinary tract infection) Status: Acute (2) Suprapubic catheter dysfunction Status: Acute ALEX BEJARANO MD Dec 01, 2020 16:01
[2020-12-01 17:37] VITALS: BP 132/63
[2020-12-01] MEDS: FAMOTIDINE 20 MG (PEPCID) TABLET PO SCH (19:37)
[2020-12-01] MEDS ORDERED: ONDANSETRON 4 MG/2 ML (SDV) Z0FRAN IV PRN (22:00)
[2020-12-01] MEDS ORDERED: BENZONATATE 100 MG (TESSALON) CAPSULE PO PRN (22:00)
[2020-12-01] MEDS ORDERED: ANTACID SUSP 30 ML UDC (MYLANTA) PO PRN (22:00)
[2020-12-01] MEDS ORDERED: MILK OF MAGNESIA 400 MG/5 ML 30 ML UDC PO PRN (22:00)
[2020-12-01] MEDS ORDERED: ACETAMINOPHEN 325 MG TABLET PO PRN (22:00)
[2020-12-02] MEDS: MEROPENEM 2,000 MG in NS (IVPB) 100 ML IV SCH ×2 (01:23→16:40)
[2020-12-02 06:02] VITALS: BP 124/61
[2020-12-02] MEDS: KCL 20 MEQ TAB (K-DUR) PO SCH (06:07)
[2020-12-02] MEDS: CYANOCOBALAMIN 1,000 MCG (VITAMIN B-12) TABLET PO SCH ×2 (06:10→06:18)
[2020-12-02] MEDS: buPROPion SR 150 MG (WELLBUTRIN SR) TAB PO SCH (08:09)
[2020-12-02] MEDS: MAGNESIUM OXIDE (MAG-OX)400 MG TAB PO SCH ×2 (08:09→17:39)
[2020-12-02] MEDS: FLUTICASONE NASAL SPRAY (FLONASE) 16 GM BTL NS SCH ×2 (08:10→19:41)
--- NOTE | 2020-12-02 16:29 | Physical Therapy Daily Note ---
PT Daily Note-Current Subjective Pt reports he is feeling stronger today. Mental Status Patient Orientation: Normal For Age Transfers SCALE: Activities may be completed with or without assistive devices. 6-Ajxtqusawi-kivmxtr completes the activity by him/herself with no assistance from a helper. 5-Set-up or Clean-up Assistance-helper sets up or cleans up; patient completes activity. [place] assists only prior to or following the activity. 4-Supervision or Touching Assistance-helper provides verbal cues and/or touching/steadying and/or contact guard assistance as patient completes activity. Assistance may be provided throughout the activity or intermittently. 3-Partial/Moderate Assistance-helper does LESS THAN HALF the effort. [place] lifts, holds or supports trunk or limbs, but provides less than half the effort. 2-Substantial/Maximal Assistance-helper does MORE THAN HALF the effort. [place] lifts or holds trunk or limbs and provides more than half the effort. 1-Fmpoeqfjc-dfstkh does ALL the effort. Patient does none of the effort to complete the activity. Or, the assistance of 2 or more helpers is required for the patient to complete the activity. If activity was not attempted, code reason: 7-Patient Refused. 9-Not Applicable-not attempted and the patient did not perform the activity before the current illness, exacerbation or injury. 10-Not Attempted due to Environmental Limitations-(lack of equipment, weather restraints, etc.). 88-Not Attempted due to Medical Conditions or Safety Concerns. Gait Training Gait Assistive Device: None Ambulate SBA x 15 minutes with intermittent standing breaks. Pt does have some minor lateral ataxia which he says is normal. PT Staff Research Scientist Goals Staff Research Scientist Goals PT Staff Research Scientist Goals Time Frame: Dec 16, 2020 Roll Left & Right (QC): 6 Sit to Lying (QC): 6 Lying-Sitting on Side/Bed(QC): 6 Sit to Stand (QC): 6 Chair/Bpf-ef-Oxfzp Xfer(QC): 6 Toilet Transfer (QC): 6 Car Transfer (QC): 6 Does the Patient Walk: Yes Walk 10 feet (QC): 6 Walk 50ft with 2 Turns (QC): 6 Walk 150 ft (QC): 6 Walking 10ft on Uneven Surface: 6 1 Step (curb) (QC): 6 4 Steps (QC): 9 12 Steps (QC): 9 Picking up an Object (QC): 6 (seated position) Wheel 50 feet with 2 turns (QC: 9 Wheel 150 feet: 9 PT Plan Treatment/Plan Treatment Plan: Continue Plan of Care Treatment Plan: Education, Functional Activity Rachna, Functional Strength, Gait, Safety, Therapeutic Exercise, Transfers Treatment Duration: Dec 16, 2020 Frequency: 6 times per week Estimated Hrs Per Day: .25 hour per day Patient and/or Family Agrees t: Yes Time/GCodes Time In: 855 Time Out: 910 Total Billed Treatment Time: 15 Total Billed Treatment visit, gait 15min EUNICE MCCLURE PT Dec 02, 2020 16:29
[2020-12-02] MEDS: VANCOMYCIN INJECTION 1,500 MG in NS IV 500 ML 500 ML IV SCH (16:40)
[2020-12-02 18:00] VITALS: BP 149/67
[2020-12-02] MEDS: FAMOTIDINE 20 MG (PEPCID) TABLET PO SCH (19:49)
[2020-12-02] MEDS: MELATONIN 3 MG TABLET PO PRN (20:45)
[2020-12-03] MEDS: MEROPENEM 2,000 MG in NS (IVPB) 100 ML IV SCH ×2 (02:10→14:59)
[2020-12-03] MEDS: CYANOCOBALAMIN 1,000 MCG (VITAMIN B-12) TABLET PO SCH (05:23)
[2020-12-03] MEDS: KCL 20 MEQ TAB (K-DUR) PO SCH (05:23)
[2020-12-03 05:24] VITALS: BP 137/61
[2020-12-03] MEDS: MAGNESIUM OXIDE (MAG-OX)400 MG TAB PO SCH ×2 (08:36→17:26)
[2020-12-03] MEDS: buPROPion SR 150 MG (WELLBUTRIN SR) TAB PO SCH (08:36)
[2020-12-03] MEDS: FLUTICASONE NASAL SPRAY (FLONASE) 16 GM BTL NS SCH ×2 (08:37→19:45)
[2020-12-03] MEDS: VANCOMYCIN INJECTION 1,500 MG in NS IV 500 ML 500 ML IV SCH (14:59)
[2020-12-03 19:33] VITALS: BP 142/65
[2020-12-03] MEDS: FAMOTIDINE 20 MG (PEPCID) TABLET PO SCH (19:45)
[2020-12-03] MEDS: MELATONIN 3 MG TABLET PO PRN (21:01)
[2020-12-04] MEDS: MEROPENEM 2,000 MG in NS (IVPB) 100 ML IV SCH ×2 (02:47→13:37)
[2020-12-04] MEDS: KCL 20 MEQ TAB (K-DUR) PO SCH (05:50)
[2020-12-04] MEDS: CYANOCOBALAMIN 1,000 MCG (VITAMIN B-12) TABLET PO SCH (05:50)
[2020-12-04] MEDS: buPROPion SR 150 MG (WELLBUTRIN SR) TAB PO SCH (08:10)
[2020-12-04] MEDS: MAGNESIUM OXIDE (MAG-OX)400 MG TAB PO SCH (08:10)
[2020-12-04] MEDS: FLUTICASONE NASAL SPRAY (FLONASE) 16 GM BTL NS SCH (08:10)
--- NOTE | 2020-12-04 10:11 | Physical Therapy Daily Note ---
PT Daily Note-Current Subjective Patient agrees to PT. He reports he is up independently without difficulty in room and hallway. Mental Status Patient Orientation: Normal For Age Attachments: Suprapubic Catheter Transfers SCALE: Activities may be completed with or without assistive devices. 3-Glrvklflrf-lcvdxrz completes the activity by him/herself with no assistance from a helper. 5-Set-up or Clean-up Assistance-helper sets up or cleans up; patient completes activity. [place] assists only prior to or following the activity. 4-Supervision or Touching Assistance-helper provides verbal cues and/or touching/steadying and/or contact guard assistance as patient completes activity. Assistance may be provided throughout the activity or intermittently. 3-Partial/Moderate Assistance-helper does LESS THAN HALF the effort. [place] lifts, holds or supports trunk or limbs, but provides less than half the effort. 2-Substantial/Maximal Assistance-helper does MORE THAN HALF the effort. [place] lifts or holds trunk or limbs and provides more than half the effort. 1-Nwphenjux-qdxvih does ALL the effort. Patient does none of the effort to complete the activity. Or, the assistance of 2 or more helpers is required for the patient to complete the activity. If activity was not attempted, code reason: 7-Patient Refused. 9-Not Applicable-not attempted and the patient did not perform the activity be fore the current illness, exacerbation or injury. 10-Not Attempted due to Environmental Limitations-(lack of equipment, weather restraints, etc.). 88-Not Attempted due to Medical Conditions or Safety Concerns. Roll Left & Right (QC): 6 Sit to Lying (QC): 6 Lying to Sitting/Side of Bed(Q: 6 Sit to Stand (QC): 6 Chair/Wkq-wj-Aukvs Xfer(QC): 6 Toilet Transfer (QC): 6 Car Transfer (QC): 6 Gait Training Does the Patient Walk?: Yes Distance: >1000' Walk 10 feet (QC): 6 Walk 50 ft with 2 Turns(QC): 6 Walk 150 ft (QC): 6 Walking 10ft/uneven surface-QC: 6 Gait Assistive Device: None safe and functional with no deviation on this date. Stair Training Stair Training: Handrails/: 1 handrail #of Steps: 1 1 Step (curb) (QC): 6 Stairs: Pattern: Step to Balance Picking up an Object (QC): 6 Assessment Patient tolerated treatment well and has attained all functional goals. Plan dismissal this week. PT Dynamite Packing Machine Operator Goals Assisted Goals PT Dynamite Packing Machine Operator Goals Time Frame: Dec 16, 2020 Roll Left & Right (QC): 6 (met 12/04/20) Sit to Lying (QC): 6 (met 12/04/20) Lying-Sitting on Side/Bed(QC): 6 (met 12/04/20) Sit to Stand (QC): 6 (met 12/04/20) Chair/Axw-bt-Knmyz Xfer(QC): 6 (met 12/04/20) Toilet Transfer (QC): 6 (met 12/04/20) Car Transfer (QC): 6 (met 12/04/20) Does the Patient Walk: Yes Walk 10 feet (QC): 6 (met 12/04/20) Walk 50ft with 2 Turns (QC): 6 (met 12/04/20) Walk 150 ft (QC): 6 (met 12/04/20) Walking 10ft on Uneven Surface: 6 (met 12/04/20) 1 Step (curb) (QC): 6 (met 12/04/20) 4 Steps (QC): 9 12 Steps (QC): 9 Picking up an Object (QC): 6 (seated position) Wheel 50 feet with 2 turns (QC: 9 Wheel 150 feet: 9 PT Plan Treatment/Plan Treatment Plan: Continue Plan of Care Treatment Plan: Education, Functional Activity Rachna, Functional Strength, Gait, Safety, Therapeutic Exercise, Transfers Treatment Duration: Dec 16, 2020 Frequency: 6 times per week Estimated Hrs Per Day: .25 hour per day Patient and/or Family Agrees t: Yes Time/GCodes Time In: 850 Time Out: 905 Total Billed Treatment Time: 15 Total Billed Treatment 1 visit FA 15 min RUBA CUTLER PT Dec 04, 2020 10:11
--- NOTE | 2020-12-04 12:19 | Discharge Summary ---
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 His urine culture showed a Staph epidermidis and Myroides odoratimimus. He was treated with IV Vancomycin and Merrem based on sensitivities. He completed his course of antibiotics. He was discharged home in stable condition. He should follow-up with his primary care physician, Dr. Earl. He should follow-up with urology, Dr. Doyle. Labs and Pending Lab Test: Home Meds Active Reported Tylenol Arthritis (Acetaminophen) 650 Mg Tablet.er 650 Mg PO BID PRN Flonase Allergy Relief (Fluticasone Propionate) 9.9 Ml [place].susp 1 [place] NSEACH BID 2 SPRAYS PER NOSTRIL DAILY X 2 DAYS THEN 1 SPRAY DAILY Vitamin B-12 (Cyanocobalamin (Vitamin B-12)) 500 Mcg Tablet 1,000 Mcg PO DAILY TAKES 2 (500MCG) TABS Bupropion Xl (Bupropion HCl) 150 Mg Tab.er.24h 150 Mg PO DAILY Famotidine 40 Mg Tablet 40 Mg PO DAILY Atorvastatin Calcium 80 Mg Tablet 40 Mg PO HS TAKES OF AN 80MG TAB Potassium Chloride 20 Meq Tablet.er 20 Meq PO DAILY Magnesium Oxide 420 Mg Tablet 420 Mg PO BID Atenolol-Chlorthalidone 50-25 (Atenolol/Chlorthalidone) 1 Each Tablet 1 Each PO DAILY Assessment/Pt Instructions Take medications as prescribed. Follow up with your PCP and Dr. Doyle, urology. Discharge Planning: <30 minutes discharge planning Discharge Instructions Discharge Diet: No Restrictions Activity as Tolerated: Yes Consultations Urology Discharge Physical Examination Vital Signs Vital Signs Date Time Temp Pulse Resp B/P (MAP) Pulse Ox O2 Delivery O2 Flow Rate FiO2 12/04/20 08:00 94 Room Air 12/03/20 19:33 36.8 109 18 142/65 (90) General Appearance: No Apparent Distress, Obese Respiratory: Lungs Clear, Normal Breath Sounds, No Respiratory Distress Cardiovascular: Regular Rate, Rhythm, No Edema, No Murmur Gastrointestinal: Normal Bowel Sounds, Non Tender, Soft Extremity: Normal Inspection, Non Tender, No Pedal Edema Skin: Normal Color, Warm/Dry Neurologic/Psychiatric: Alert, Oriented x3, No Motor/Sensory Deficits, Normal Mood/Affect Allergies: Coded Allergies: Penicillins (Verified Allergy, Unknown, FROM CHILDHOOD, 05/02/20) Reacted as a child per uncoded allergy Copy Copies To 1: BEN EARL DO Discharge Summary Date of Admission Nov 30, 2020 at 13:34 Date of Discharge Discharge Date: Dec 04, 2020 Discharge Time: 12:18 Admission Diagnosis 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
[2020-12-04] MEDS: VANCOMYCIN INJECTION 1,500 MG in NS IV 500 ML 500 ML IV SCH (13:37)
--- NOTE | 2020-12-04 14:07 | Therapy Team Discharge Summary ---
Therapy Discharge Summary Discharge Recommendations Date of Discharge Physical Therapy Patient dismissing to home on this date. Patient attained some LTG (refer to LTG for specifics). Patient ambulates independently in room and hallway >1000' without deviation. Patient is highly motivated with progress. PT to dismiss patient from services. PT Dictaphone Transcriber Goals Dictaphone Transcriber Goals PT Residential Goals Time Frame: Dec 16, 2020 Roll Left to Right (QC): 6 (met 12/04/20) Sit to Lying (QC): 6 (met 12/04/20) Lying-Sitting on Side/Bed(QC): 6 (met 12/04/20) Sit to Stand (QC): 6 (met 12/04/20) Chair/Gik-tm-Oardn Xfer(QC): 6 (met 12/04/20) Car Transfer (QC): 6 (met 12/04/20) Does the Patient Walk: Yes Walk 10 feet (QC): 6 (met 12/04/20) Walk 10ft-Uneven Surface(QC): 6 (met 12/04/20) Walk 50ft with 2 Turns (QC): 6 (met 12/04/20) Walk 150 ft (QC): 6 (met 12/04/20) Wheel 50 feet with 2 turns (QC: 9 1 Step (curb) (QC): 6 (met 12/04/20) 4 Steps (QC): 9 12 Steps (QC): 9 Picking up an Object (QC): 6 (seated position) OT Dictaphone Transcriber Goals Residential Goals Toilet/Commode Transfer (QC): 6 (met 12/04/20) 1=Demonstrate adherence to instructed precautions during ADL tasks. 2=Patient will verbalize/demonstrate understanding of assistive devices/modifications for ADL. 3=Patient will improve strength/tolerance for activity to enable patient to perform ADL's. RUBA CUTLER PT Dec 04, 2020 14:07
[2020-12-04 17:00] VITALS: BP 142/65
== END 2020-12-04 17:10 | disposition home or self-care (01) | DRG 699 ==
LOC: 4TH 13:34
PROVIDERS: ADMIT Family Medicine; ATTEND Internal Medicine
DX: T83.518A Infection and inflammatory reaction due to other urinary catheter, initial encounter (principal); N39.0 Urinary tract infection, site not specified; M10.9 Gout, unspecified
CPT/HCPCS: 36415; 80202

== ENCOUNTER 2020-12-25 10:01 | Emergency (ER) | payer MEDICARE, MEDICAID ==
[~2020-12-25] VITALS: Ht 172.7 cm; Wt 111.2 kg
[~2020-12-25 10:01] MED LIST changes: -ACETAMINOPHEN 325 MG TABLET PO PRN; -ACETAMINOPHEN 500 MG TAB (TYLENOL) PO PRN; +BUPR150T24 PO; -BUPR150T8 PO; -MEROPENEM 2,000 MG in NS (IVPB) 100 ML IV SCH; -SENNA W/DOCUSATE (SENOKOT S) TABLET PO PRN; -TROUGH ORDER-PHARMACY XX NR
[2020-12-25 10:07] VITALS: BP 134/99
--- NOTE | 2020-12-25 10:49 | ED GU-Male ---
General Chief Complaint: Catheter/Drain/Tube Problems Stated Complaint: SUPRAPUBIC CATHETER Nursing Triage Note: PT AMB TO [facility] 6 WITH COMPLAINT OF CATHETER CHANGE. [facility] SUPR[facility]UB[facility] CATHETER CHANGED AND ASKED NURSES TO PUT 15ML OF FLUID IN THE BULB VERSUS 10ML. THE NURSE SAID SHE COULD NOT DO THAT WITHOUT A DRS ORDER AND TWALIL WAS NOT IN. INSTRUCTED PT TO COME TO ER. Source: patient Exam Limitations: no limitations History of Present Illness Date Seen by Provider: Dec 25, 2020 Time Seen by Provider: 10:05 Initial Comments Patient presents ER by private conveyance from home with chief complaint that he went to Dr. Doyle's office to have a routine suprapubic catheter changed and asked the nurses to put an extra 10 cc of fluid in his 5 cc bowl but they would not do without an order. He says if he only puts in the 5 cc it leaks a lot but when they overfill it it fits well. He gets his Monk catheters from outpatient medical supply in [place]. Allergies and Home Medications Allergies Coded Allergies: Penicillins (Verified Allergy, Unknown, FROM CHILDHOOD, 05/02/20) Reacted as a child per uncoded allergy Home Medications Acetaminophen 650 Mg Tablet.er, 650 MG PO BID PRN for PAIN-MILD (1-4), (Reported) Atenolol/Chlorthalidone 1 Each Tablet, 1 EACH PO DAILY, (Reported) Atorvastatin Calcium 80 Mg Tablet, 40 MG PO HS, (Reported) TAKES OF AN 80MG TAB Bupropion HCl 150 Mg Tab.er.24h, 150 MG PO DAILY, (Reported) Cyanocobalamin (Vitamin B-12) 500 Mcg Tablet, 1,000 MCG PO DAILY, (Reported) TAKES 2 (500MCG) TABS Famotidine 40 Mg Tablet, 40 MG PO DAILY, (Reported) Fluticasone Propionate 9.9 Ml [place].susp, 1 SPRAY NSEACH BID, (Reported) 2 SPRAYS PER NOSTRIL DAILY X 2 DAYS THEN 1 SPRAY DAILY Magnesium Oxide 420 Mg Tablet, 420 MG PO BID, (Reported) Potassium Chloride 20 Meq Tablet.er, 20 MEQ PO DAILY, (Reported) Patient Home Medication List Home Medication List Reviewed: Yes Review of Systems Review of Systems Constitutional: No chills, No fever EENTM: No ear discharge, No ear pain Respiratory: No cough, No short of breath Past Yytwsll-Qqcqdt-Zsllrg Hx Patient Social History Alcohol Use: Denies Use Smoking Status: Never a Smoker 2nd Hand Smoke Exposure: No Recent Infectious Disease Expo: No Recent Hopitalizations: No Immunizations Up To Date Tetanus Booster (TDap): Unknown Date of Pneumonia Vaccine: Jun 23, 2012 Date of Influenza Vaccine: Aug 20, 2020 Seasonal Allergies Seasonal Allergies: Yes Past Medical History Surgeries: Yes (lesion from neck, suprapubic cath, foot) Bladder Surgery Respiratory: No Cardiac: Yes High Cholesterol, Hypertension Neurological: No Reproductive Disorders: No Sexually Transmitted Disease: No HIV/AIDS: No Genitourinary: Yes (suprapubic catheter) Gastrointestinal: Yes Gastroesophageal Reflux, Hemorrhoids, Polyps Musculoskeletal: No Endocrine: No HEENT: Yes (GLASSES) Double Vision Loss of Vision: Denies Hearing Impairment: Hard of Hearing, Bilateral Hearing Aide Cancer: Yes Skin Psychosocial: Yes Anxiety, Depression Integumentary: Yes (skin ca) Blood Disorders: No Adverse Reaction/Blood Tranf: No (N/A) Family Medical History No Pertinent Family Hx Physical Exam Vital Signs Vital Signs - First Documented 12/25/20 10:07 Temp 35.5 Pulse 86 Resp 17 B/P (MAP) 134/99 (111) Pulse Ox 95 O2 Delivery Room Air Capillary Refill : Less Than 3 Seconds Height, Weight, BMI Height: 5'8.00" Weight: 155lbs. 0.0oz. 70.800561jw; 37.00 BMI Method:Stated General Appearance: WD/WN, no apparent distress Cardiovascular: normal peripheral pulses, regular rate, rhythm Respiratory: no respiratory distress, no accessory muscle use Gastrointestinal: non tender, soft Procedures/Interventions Progress Site was cleaned with iodine and chlorhexidine and using sterile gloves we removed the existing Monk tube using lubricant were easily replaced the same size Monk tube that the patient provided and inflated with 10 cc of sterile saline. Patient tolerated procedure well and had small amount of urine output. Progress/Results/Core Measures Suspected Sepsis Recent Fever Within 48 Hours: No Infection Criteria Present: None New/Unexplained Altered Menta: No Sepsis Screen: No Definite Risk SIRS Temperature: Pulse: 86 Respiratory Rate: 17 Blood Pressure 134 /99 Mean: 111 Results/Orders Vital Signs/I&O 12/25/20 10:07 Temp 35.5 Pulse 86 Resp 17 B/P (MAP) 134/99 (111) Pulse Ox 95 O2 Delivery Room Air Capillary Refill : Less Than 3 Seconds Blood Pressure Mean: 111 Progress Note : Time: 10:47 Progress Note Replaced his Monk catheter and filled the bulb up to 10 cc. Instructed to come back if it is leaking and we will put some more and if necessary. We also instructed him that he can get larger bulbs if he would just ask his supplier for them. Departure Impression Primary Impression: Encounter for suprapubic catheter care Disposition: HOME, SELF-CARE Condition: Improved Departure-Patient Inst. Decision time for Depature: 10:48 Referrals: SHARON EARL DO (PCP/Family) Primary Care Physician Patient Instructions: How to Care for Your Suprapubic Urinary Catheter Add. Discharge Instructions: Return to the ER if you are having any concerns with leakage and we will help you with this. Follow-up with Dr. Doyle as necessary. All discharge instructions reviewed with patient and/or family. Voiced understanding. REDD SALMON J Dec 25, 2020 10:49
== END 2020-12-25 10:53 | disposition home or self-care (01) ==
LOC: EDUNIT# 10:01 → ER 10:03
DX: T83.028A Displacement of other urinary catheter, initial encounter (principal); E78.00 Pure hypercholesterolemia, unspecified; I10 Essential (primary) hypertension; K21.9 Gastro-esophageal reflux disease without esophagitis; F32.9 Major depressive disorder, single episode, unspecified; Z88.0 Allergy status to penicillin; Z85.828 Personal history of other malignant neoplasm of skin
CPT/HCPCS: 99281

== ENCOUNTER → 2021-06-07 | Outpatient (CLI) | payer MEDICARE, MEDICAID ==
[~2021-06-07] MED LIST changes: -SULF1TAB35 PO; +SULF1TAB38 PO
== END ==
LOC: LAB 10:07
PROVIDERS: ATTEND Family Medicine
DX: N39.0 Urinary tract infection, site not specified (principal)
CPT/HCPCS: 87077; 87088; 87186

== ENCOUNTER 2021-06-12 17:23 | Emergency (ER) | payer MEDICARE, MEDICAID ==
[~2021-06-12] VITALS: Ht 172 cm; Wt 106.0 kg
[2021-06-12 17:30] VITALS: BP 163/94
--- NOTE | 2021-06-12 17:41 | ED GI ---
General Chief Complaint: Rect Problems Stated Complaint: RECTAL PAIN Source of Information: Patient Exam Limitations: No Limitations History of Present Illness Date Seen by Provider: Jun 12, 2021 Time Seen by Provider: 17:39 Initial Comments To ER by private vehicle with reports of rectal pain for about a week. No bleeding. Believes this is related to hemorrhoids from his constipation. No abdominal pain. Timing/Duration: 1-2 Days Severity/Quality: Moderate Location: Generalized Abdomen Radiation: No Radiation Activities at Onset: None Associated Symptoms: Denies Symptoms Allergies and Home Medications Allergies Coded Allergies: Penicillins (Verified Allergy, Unknown, FROM CHILDHOOD, 05/02/20) Reacted as a child per uncoded allergy Home Medications Acetaminophen 650 Mg Tablet.er, 650 MG PO BID PRN for PAIN-MILD (1-4), (Reported) Atenolol/Chlorthalidone 1 Each Tablet, 1 EACH PO DAILY, (Reported) Atorvastatin Calcium 80 Mg Tablet, 40 MG PO HS, (Reported) TAKES OF AN 80MG TAB Bupropion HCl 150 Mg Tab.er.24h, 150 MG PO DAILY, (Reported) Cyanocobalamin (Vitamin B-12) 500 Mcg Tablet, 1,000 MCG PO DAILY, (Reported) TAKES 2 (500MCG) TABS Famotidine 40 Mg Tablet, 40 MG PO DAILY, (Reported) Fluticasone Propionate 9.9 Ml [place].susp, 1 SPRAY NSEACH BID, (Reported) 2 SPRAYS PER NOSTRIL DAILY X 2 DAYS THEN 1 SPRAY DAILY Magnesium Oxide 420 Mg Tablet, 420 MG PO BID, (Reported) Potassium Chloride 20 Meq Tablet.er, 20 MEQ PO DAILY, (Reported) Patient Home Medication List Home Medication List Reviewed: Yes Review of Systems Review of Systems Constitutional: see HPI EENTM: No Symptoms Reported Respiratory: No Symptoms Reported Cardiovascular: No Symptoms Reported Gastrointestinal: See HPI Genitourinary: No Symptoms Reported Musculoskeletal: no symptoms reported Skin: no symptoms reported Psychiatric/Neurological: No Symptoms Reported Endocrine: No Symptoms Reported Hematologic/Lymphatic: No Symptoms Reported Past Zoouryf-Rdldpt-Ixospw Hx Immunizations Up To Date Tetanus Booster (TDap): Unknown Seasonal Allergies Seasonal Allergies: Yes Past Medical History Surgeries: Yes (lesion from neck, suprapubic cath, foot) Bladder Surgery Respiratory: No Cardiac: Yes High Cholesterol, Hypertension Neurological: No Reproductive Disorders: No Sexually Transmitted Disease: No HIV/AIDS: No Genitourinary: Yes (suprapubic catheter) Gastrointestinal: Yes Gastroesophageal Reflux, Hemorrhoids, Polyps Musculoskeletal: No Endocrine: No HEENT: Yes (GLASSES) Double Vision Loss of Vision: Denies Hearing Impairment: Hard of Hearing, Bilateral Hearing Aide Cancer: Yes Skin Psychosocial: Yes Anxiety, Depression Integumentary: Yes (skin ca) Blood Disorders: No Adverse Reaction/Blood Tranf: No (N/A) Family Medical History No Pertinent Family Hx Physical Exam Vital Signs Vital Signs - First Documented 06/12/21 17:30 Temp 37.3 Pulse 117 Resp 20 B/P (MAP) 163/94 (117) Pulse Ox 94 Capillary Refill : Height/Weight/BMI Height: 5'8.00" Weight: 155lbs. 0.0oz. 70.690063jf; 37.00 BMI Method:Stated General Appearance: WD/WN, no apparent distress HEENT: PERRL/EOMI, normal ENT inspection Respiratory: no respiratory distress, no accessory muscle use Gastrointestinal: normal bowel sounds, non tender, soft Extremities: normal range of motion, non-tender Neurologic/Psychiatric: alert, normal mood/affect, oriented x 3 Skin: normal color, warm/dry Progress/Results/Core Measures Results/Orders My Orders Orders - NIKKI CARDOZO APRN Acute Abd Series (06/12/21 17:36) Vital Signs/I&O 06/12/21 17:30 Temp 37.3 Pulse 117 Resp 20 B/P (MAP) 163/94 (117) Pulse Ox 94 Departure Communication (Admissions) 0301-digital rectal exam done with Lois BREWER at the bedside there is no hemorrhoid external or palpable internal hemorrhoid. There is no fissure. There is prostatomegaly though it is nontender to palpation. Impression Primary Impression: Rectal pain Disposition: HOME, SELF-CARE Condition: Stable Departure-Patient Inst. Decision time for Depature: 17:59 Referrals: SHARON EARL DO (PCP/Family) Primary Care Physician Patient Instructions: NO INSTRUCTIONS GIVEN NIKKI CARDOZO APRN Jun 12, 2021 17:41
--- NOTE | 2021-06-12 17:54 | Diagnostic Imaging Report ---
INDICATION: Rectal pain. TIME OF EXAM: 5:49 p.m. FINDINGS: Heart size is normal. Lungs are clear. No free air is identified. The bowel gas pattern is nonobstructive. No pathologic calcifications are seen. IMPRESSION: No acute abnormality is detected. Dictated by: Dictated on workstation # [id number]
== END 2021-06-12 18:15 | disposition home or self-care (01) ==
LOC: EDUNIT# 17:23 → ER 17:25
DX: K62.89 Other specified diseases of anus and rectum (principal); K64.9 Unspecified hemorrhoids; I10 Essential (primary) hypertension; E78.00 Pure hypercholesterolemia, unspecified; K21.9 Gastro-esophageal reflux disease without esophagitis; F41.9 Anxiety disorder, unspecified; F32.9 Major depressive disorder, single episode, unspecified; Z79.899 Other long term (current) drug therapy
CPT/HCPCS: 74022

== ENCOUNTER 2021-06-15 06:16 | Emergency (ER) | payer MEDICARE, MEDICAID ==
[~2021-06-15] VITALS: Ht 175 cm; Wt 106.0 kg
[2021-06-15 07:04] LABS: BASOPHILS # (AUTO) 0.1 10^3/uL (0.0-0.1); BASOPHILS % (AUTO) 1 % (0-10); EOSINOPHILS # (AUTO) 0.2 10^3/uL (0.0-0.3); EOSINOPHILS % (AUTO) 2 % (0-10); HEMATOCRIT 34 % (40-54); HEMOGLOBIN 11.3 g/dL (13.3-17.7); LYMPHOCYTES # (AUTO) 0.8 10^3/uL (1.0-4.0); LYMPHOCYTES % (AUTO) 6 % (12-44); MEAN CORPUSCULAR HEMOGLOBIN 29 pg (25-34); MEAN CORPUSCULAR HGB CONC 33 g/dL (32-36); MEAN CORPUSCULAR VOLUME 86 fL (80-99); MEAN PLATELET VOLUME 9.5 fL (9.0-12.2); MONOCYTES # (AUTO) 1.2 10^3/uL (0.0-1.0); MONOCYTES % (AUTO) 8 % (0-12); NEUTROPHILS % (AUTO) 83 % (42-75); PLATELET COUNT 378 10^3/uL (130-400); WHITE BLOOD COUNT 14.3 10^3/uL (4.3-11.0)
[2021-06-15 07:13] LABS: ALBUMIN 3.9 GM/DL (3.2-4.5)
[2021-06-15 07:14] LABS: POTASSIUM 4.2 MMOL/L (3.6-5.0)
[2021-06-15 07:15] LABS: CALCIUM 9.6 MG/DL (8.5-10.1)
[2021-06-15 07:16] LABS: TOTAL PROTEIN 7.2 GM/DL (6.4-8.2)
[2021-06-15 07:18] LABS: BILIRUBIN,TOTAL 0.3 MG/DL (0.1-1.0)
[2021-06-15 07:20] LABS: CREATININE SERUM 2.06 MG/DL (0.60-1.30)
--- NOTE | 2021-06-15 07:28 | Diagnostic Imaging Report ---
INDICATION: Sepsis Portable AP view of the chest is obtained with comparison made to study of 04/30/2020. FINDINGS: Heart size and pulmonary vascularity are within normal limits, and the lungs are clear, bilaterally. IMPRESSION: Unremarkable chest. Dictated by: Dictated on workstation # [id number]
[2021-06-15 07:43] LABS: BAND NEUTROPHILS 0 %; BASOPHILS % (MANUAL) 1 %; EOSINOPHILS % (MANUAL) 3 %; LYMPHOCYTES % (MANUAL) 5 %; MONOCYTES % (MANUAL) 13 %; NEUTROPHILS % (MANUAL) 78 %; RBC MORPH NORMAL; TSH (THYROID ANALYZER) 0.82 UIU/ML (0.35-4.94)
[2021-06-15] MEDS ORDERED: NS IV 1000 ML 1,000 ML IV ONE (08:00)
--- NOTE | 2021-06-15 08:15 | ED General ---
General Chief Complaint: Skin/Wound Problems Stated Complaint: PENIS & RECTUM SORE Nursing Triage Note: PT ARRIVES TO THE ED C/O AN AREA OF CONCERN TO HIS PERINEUM THAT THE PT STATES FEELS IS SWOLLEN AND FEELS RAW. Source of Information: Patient Exam Limitations: No Limitations History of Present Illness Date Seen by Provider: Jun 15, 2021 Time Seen by Provider: 06:23 Initial Comments This is 75-year-old gentleman presents to the emergency room with primary complaint of skin irritation in the genital region and the rectal area. He has a suprapubic catheter. He also is noted to have a tachycardia up to 130 bpm on the monitor during evaluation and his blood pressure is quite high with a systolic measurement of 202. He reports taking his blood pressure medication about an hour ago. Review of his chart notes that he has had problems with urinary tract infections and prostatitis in the past. He has been on 2 rounds of antibiotics recently according to his medication filling record. He states he does not feel like he has a urinary tract infection at present. He normally has pain with UTI. He reports his atenolol was recently stopped due to adverse effects that were intolerable. Heart rhythm is sinus tachycardia on the residential monitor. Allergies and Home Medications Allergies Coded Allergies: Penicillins (Verified Allergy, Unknown, FROM CHILDHOOD, 05/02/20) Reacted as a child per uncoded allergy Home Medications Acetaminophen 650 Mg Tablet.er, 650 MG PO BID PRN for PAIN-MILD (1-4), (Reported) Atenolol/Chlorthalidone 1 Each Tablet, 1 EACH PO DAILY, (Reported) Atorvastatin Calcium 80 Mg Tablet, 40 MG PO HS, (Reported) TAKES OF AN 80MG TAB Bupropion HCl 150 Mg Tab.er.24h, 150 MG PO DAILY, (Reported) Cyanocobalamin (Vitamin B-12) 500 Mcg Tablet, 1,000 MCG PO DAILY, (Reported) TAKES 2 (500MCG) TABS Famotidine 40 Mg Tablet, 40 MG PO DAILY, (Reported) Fluticasone Propionate 9.9 Ml [place].susp, 1 SPRAY NSEACH BID, (Reported) 2 SPRAYS PER NOSTRIL DAILY X 2 DAYS THEN 1 SPRAY DAILY Magnesium Oxide 420 Mg Tablet, 420 MG PO BID, (Reported) Potassium Chloride 20 Meq Tablet.er, 20 MEQ PO DAILY, (Reported) Patient Home Medication List Home Medication List Reviewed: Yes Review of Systems Review of Systems Constitutional: no symptoms reported EENTM: no symptoms reported Respiratory: no symptoms reported Cardiovascular: see HPI Gastrointestinal: no symptoms reported Genitourinary: see HPI Musculoskeletal: no symptoms reported Skin: see HPI Psychiatric/Neurological: No Symptoms Reported Hematologic/Lymphatic: No Symptoms Reported Past Komkget-Kptzki-Tcwqpv Hx Patient Social History Tobacco Use?: No Substance use?: No Alcohol Use?: No Immunizations Up To Date Tetanus Booster (TDap): Unknown First/Initial COVID19 Vaccinat: 2 VACCINES Second COVID19 Vaccination Yg: 2 VACCINES Seasonal Allergies Seasonal Allergies: Yes Past Medical History Surgery/Hospitalization HX: SUPRAPUBIC CATH Surgeries: Yes (lesion from neck, suprapubic cath, foot) Bladder Surgery Respiratory: No Cardiac: Yes High Cholesterol, Hypertension Neurological: No Reproductive Disorders: No Sexually Transmitted Disease: No HIV/AIDS: No Genitourinary: Yes (suprapubic catheter) Prostate Problems (Prostate enlargement), Neurogenic Bladder Gastrointestinal: Yes Gastroesophageal Reflux, Hemorrhoids, Polyps Musculoskeletal: No Endocrine: No HEENT: Yes (GLASSES) Double Vision Loss of Vision: Denies Hearing Impairment: Hard of Hearing, Bilateral Hearing Aide Cancer: Yes Skin Psychosocial: Yes Anxiety, Depression Integumentary: Yes (skin ca) Blood Disorders: No Adverse Reaction/Blood Tranf: No (N/A) Family Medical History No Pertinent Family Hx Physical Exam Vital Signs Vital Signs - First Documented 06/15/21 06:24 Temp 36.7 Pulse 117 Resp 24 B/P (MAP) 202/92 (128) Pulse Ox 96 O2 Delivery Room Air Capillary Refill : Less Than 3 Seconds Height, Weight, BMI Height: 5'8.00" Weight: 155lbs. 0.0oz. [id number]; 34.00 BMI Method:Stated General Appearance: No Apparent Distress, WD/WN HEENT: Normal ENT Inspection Neck: Normal Inspection; No JVD Respiratory: Lungs Clear, Normal Breath Sounds, No Accessory Muscle Use Cardiovascular: No Edema, No Murmur, Tachycardia Gastrointestinal: Normal Bowel Sounds, Non Tender, Soft, Other (Suprapubic catheter site clean with urine leaking around the edges of the insertion.) Rectal: Normal Rectal Tone, Heme Negative Stool, Other (Large, nontender prostate) Extremity: Normal Inspection, No Pedal Edema Neurologic/Psychiatric: Alert, Oriented x3, No Motor/Sensory Deficits, Normal 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 Minor skin irritation around the anus. Small break in the skin in the intergluteal fold superior to the anus.) Focused Exam Lactate Level 06/15/21 07:26: Lactic Acid Level 1.51 Lactic Acid Level Laboratory Tests Test 06/15/21 07:26 Lactic Acid Level 1.51 MMOL/L (0.50-2.00) Progress/Results/Core Measures Suspected Sepsis SIRS Temperature: Pulse: 117 Respiratory Rate: 24 Laboratory Tests 06/15/21 06:56: White Blood Count 14.3H Blood Pressure 202 /92 Mean: 128 06/15/21 07:26: Lactic Acid Level 1.51 Laboratory Tests 06/15/21 06:56: Creatinine 2.06H, Platelet Count 378, Total Bilirubin 0.3 Results/Orders Lab Results Laboratory Tests Test 06/15/21 06:56 06/15/21 07:26 Range/Units White Blood Count 14.3 H 4.3-11.0 10^3/uL Red Blood Count 3.94 L 4.30-5.52 10^6/uL Hemoglobin 11.3 L 13.3-17.7 g/dL Hematocrit 34 L 40-54 % Mean Corpuscular Volume 86 80-99 fL Mean Corpuscular Hemoglobin 29 25-34 pg Mean Corpuscular Hemoglobin Concent 33 32-36 g/dL Red Cell Distribution Width 13.2 10.0-14.5 % Platelet Count 378 130-400 10^3/uL Mean Platelet Volume 9.5 9.0-12.2 fL Immature Granulocyte % (Auto) 1 % Neutrophils (%) (Auto) 83 H 42-75 % Lymphocytes (%) (Auto) 6 L 12-44 % Monocytes (%) (Auto) 8 0-12 % Eosinophils (%) (Auto) 2 0-10 % Basophils (%) (Auto) 1 0-10 % Neutrophils # (Auto) 12.0 H 1.8-7.8 10^3/uL Lymphocytes # (Auto) 0.8 L 1.0-4.0 10^3/uL Monocytes # (Auto) 1.2 H 0.0-1.0 10^3/uL Eosinophils # (Auto) 0.2 0.0-0.3 10^3/uL Basophils # (Auto) 0.1 0.0-0.1 10^3/uL Immature Granulocyte # (Auto) 0.1 0.0-0.1 10^3/uL Neutrophils % (Manual) 78 % Lymphocytes % (Manual) 5 % Monocytes % (Manual) 13 % Eosinophils % (Manual) 3 % Basophils % (Manual) 1 % Band Neutrophils 0 % Blood Morphology Comment NORMAL Sodium Level 132 L 135-145 MMOL/L Potassium Level 4.2 3.6-5.0 MMOL/L Chloride Level 102 98-107 MMOL/L Carbon Dioxide Level 20 L 21-32 MMOL/L Anion Gap 10 5-14 MMOL/L Blood Urea Nitrogen 19 H 7-18 MG/DL Creatinine 2.06 H 0.60-1.30 MG/DL Estimat Glomerular Filtration Rate 32 BUN/Creatinine Ratio 9 Glucose Level 122 H 70-105 MG/DL Calcium Level 9.6 8.5-10.1 MG/DL Corrected Calcium 9.7 8.5-10.1 MG/DL Total Bilirubin 0.3 0.1-1.0 MG/DL Aspartate Amino Transf (AST/SGOT) 27 5-34 U/L Alanine Aminotransferase (ALT/SGPT) 24 0-55 U/L Alkaline Phosphatase 60 40-136 U/L C-Reactive Protein High Sensitivity 0.95 H 0.00-0.50 MG/DL Total Protein 7.2 6.4-8.2 GM/DL Albumin 3.9 3.2-4.5 GM/DL TSH Elizabeth Testing 0.82 0.35-4.94 UIU/ML Lactic Acid Level 1.51 0.50-2.00 MMOL/L My Orders Orders - ULISES STEELE MD Cbc With Automated Diff (06/15/21 06:52) Comprehensive Metabolic Panel (06/15/21 06:52) Hs C Reactive Protein (06/15/21 06:52) Thyroid Analyzer (06/15/21 06:52) Ed Iv/Invasive Line Start (06/15/21 06:52) Fecal Occult Bedside (06/15/21 06:52) Monitor-Rhythm Ecg Trace Only (06/15/21 06:52) Manual Differential (06/15/21 06:56) Ua Culture If Indicated (06/15/21 07:10) Blood Culture (06/15/21 07:11) Chest 1 View, Ap/Pa Only (06/15/21 07:11) Vital Signs Adult Sepsis Patie Q15M (06/15/21 07:11) Remove Rings In Anticipation O (06/15/21 07:11) Lactic Acid Analyzer (06/15/21 07:11) Ns Iv 1000 Ml (Sodium Chloride 0.9%) (06/15/21 08:00) Medications Given in ED Current Medications Medications Dose Ordered Sig/Julee Route Start Time Stop Time Status Last Admin Dose Admin Sodium Chloride 1,000 ml @ 0 mls/hr Q0M ONCE IV 06/15/21 08:00 06/15/21 08:01 DC 06/15/21 08:01 0 MLS/HR Vital Signs/I&O 06/15/21 06:24 Temp 36.7 Pulse 117 Resp 24 B/P (MAP) 202/92 (128) Pulse Ox 96 O2 Delivery Room Air Capillary Refill : Less Than 3 Seconds Blood Pressure Mean: 128 Point of Care Testing Fecal Occult: Negative Progress Note : Progress Note Skin irritation in the groin has the appearance of intertrigo in the skin folds. This is likely secondary to recent antibiotic use, moisture from catheter leakage, and body habitus. I plan to treat this with Diflucan and nystatin po wder. Tachycardia was significant and only improved to the 110s with rest. I therefore decided to further evaluate his condition with labs. He was found to have leukocytosis, but this was at baseline when compared to his historical labs over the past 10 years. CRP was low. Active infection is not suspected. Creatinine is bumped. This likely indicates patient is hypovolemic with some resulting secondary acute kidney injury. He is receiving a liter of IV fluid with plan to discharge after that. Patient requested that we add some fluid to his catheter balloon to help with the leaking. 2 mL of normal saline from a flush were added to the balloon. Blood pressure has improved to an acceptable range with rest and effect of his morning medication. Departure Impression Primary Impression: Intertrigo Additional Impressions: Sinus tachycardia Acute kidney injury Hypovolemia Disposition: 01 HOME, SELF-CARE Condition: Improved Departure-Patient Inst. Decision time for Depature: 08:20 Referrals: SHARON EARL DO (PCP/Family) Primary Care Physician Patient Instructions: Intertrigo Add. Discharge Instructions: Use the antifungal Diflucan tablets as prescribed. You may have increased yeast growth due to moisture leaking from your catheter and from recent antibiotic use. Take 1 dose today and repeat in 3 or 4 days. You may also use the nystatin powder prescribed. Use 1 hand to open the skin folds in your groin and then sprinkle the powder into the area where moisture is trapped. Be sure to clean these areas well when you shower. To help keep the area dry, you may intermittently talk clean towels or washcloths into the skin fold area to help absorb moisture. Follow-up with Dr. Doran due to your recent urinary tract infections and your catheter insertion leakage. Drink plenty of clear liquids to stay well-hydrated. Follow-up with Dr. Earl in the near future for another blood pressure check. Call with questions or concerns. Return to the ER if you have any worsening of condition. All discharge instructions reviewed with patient and/or family. Voiced understanding. Scripts Nystatin (Nystatin) 15 Gm Powder 15 GM TP BID PRN for RASH, #1 EA 2 Refills Prov: ULISES STEELE MD 06/15/21 Fluconazole (Diflucan) 150 Mg Tablet 150 MG PO ONCE, #2 TAB Take 1 tablet today and repeat in 3 or 4 days. Prov: ULISES STEELE MD 06/15/21 Copy Copies To 1: SHARON EARL DO Copies To 2: FABIANA CUELLAR MD, JOSHUA T MD Jun 15, 2021 08:15
[2021-06-15] MEDS ORDERED: FLUC150T PO (08:24)
[2021-06-15] MEDS ORDERED: NYST15PO4 TP (08:24)
[2021-06-15 09:08] VITALS: BP 147/101
== END 2021-06-15 09:08 | disposition home or self-care (01) ==
LOC: EDUNIT# 06:16 → ER 06:20
DX: L30.4 Erythema intertrigo (principal); N17.9 Acute kidney failure, unspecified; R00.0 Tachycardia, unspecified; E86.1 Hypovolemia; I10 Essential (primary) hypertension; E78.00 Pure hypercholesterolemia, unspecified; K21.9 Gastro-esophageal reflux disease without esophagitis; K64.9 Unspecified hemorrhoids; F41.9 Anxiety disorder, unspecified; F32.9 Major depressive disorder, single episode, unspecified; Z96.0 Presence of urogenital implants; Z79.899 Other long term (current) drug therapy
CPT/HCPCS: 36415; 71045; 80053; 82274; 83605; 84443; 85007; 85027; 86141; 87040; 93041

== ENCOUNTER 2021-06-16 08:10 | Emergency (ER) | payer MEDICARE, MEDICAID ==
[~2021-06-16] VITALS: Ht 172 cm; Wt 106.0 kg
[~2021-06-16 08:10] MED LIST changes: +FLUC150T PO; +NYST15PO4 TP
[2021-06-16 08:15] VITALS: BP 174/81
--- NOTE | 2021-06-16 08:39 | ED GU-Male ---
General Chief Complaint: Catheter/Drain/Tube Problems Stated Complaint: CATHETER ISSUES Nursing Triage Note: ARRIVED VIA AMB WITH COMPLAINTS OF HIS SUPRAPUBIC CATH LEAKING. Source: patient Exam Limitations: no limitations History of Present Illness Date Seen by Provider: Jun 16, 2021 Time Seen by Provider: 08:26 Initial Comments Patient is a 75-year-old who presents to the emergency department today with a chief complaint of suprapubic catheter leakage. 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 He follows with Dr. Doran. He states he sees him every 6 weeks to have his catheter changed and his last visit was about 3 weeks ago. Patient states over the last several days he has had increasing leakage around the catheter. Has had several ER visits over the last week 1 for rectal pain 1 for rash in his groin. He states they put more saline into his catheter bulb yesterday but it does not seem to have helped the leakage. He states he is currently on antibiotics for urinary tract infection. He denies any fevers or chills. No Covid related concerns. He is Covid vaccinated. He denies abdominal pain. No penile pain or scrotal swelling. He is requesting that his suprapubic catheter be exchanged. All other review of systems reviewed and negative except as stated. Timing/Duration: week Severity/Quality: mild Activities at Onset: none Associated Symptoms: denies symptoms Allergies and Home Medications Allergies Coded Allergies: Penicillins (Verified Allergy, Unknown, FROM CHILDHOOD, 05/02/20) Reacted as a child per uncoded allergy Home Medications Acetaminophen 650 Mg Tablet.er, 650 MG PO BID PRN for PAIN-MILD (1-4), (Reported) Atenolol/Chlorthalidone 1 Each Tablet, 1 EACH PO DAILY, (Reported) Atorvastatin Calcium 80 Mg Tablet, 40 MG PO HS, (Reported) TAKES OF AN 80MG TAB Bupropion HCl 150 Mg Tab.er.24h, 150 MG PO DAILY, (Reported) Cyanocobalamin (Vitamin B-12) 500 Mcg Tablet, 1,000 MCG PO DAILY, (Reported) TAKES 2 (500MCG) TABS Famotidine 40 Mg Tablet, 40 MG PO DAILY, (Reported) Fluconazole 150 Mg Tablet, 150 MG PO ONCE Take 1 tablet today and repeat in 3 or 4 days. Prescribed by: ULISES YODER on 06/15/21 0824 Fluticasone Propionate 9.9 Ml [place].susp, 1 SPRAY NSEACH BID, (Reported) 2 SPRAYS PER NOSTRIL DAILY X 2 DAYS THEN 1 SPRAY DAILY Magnesium Oxide 420 Mg Tablet, 420 MG PO BID, (Reported) Nystatin 15 Gm Powder, 15 GM TP BID PRN for RASH Prescribed by: ULISES YODER on 06/15/21 0824 Potassium Chloride 20 Meq Tablet.er, 20 MEQ PO DAILY, (Reported) Patient Home Medication List Home Medication List Reviewed: Yes Review of Systems Review of Systems Constitutional: see HPI EENTM: no symptoms reported Respiratory: no symptoms reported Cardiovascular: no symptoms reported Gastrointestinal: no symptoms reported Genitourinary: other (Suprapubic catheter leakage) Musculoskeletal: no symptoms reported Skin: rash (Groin bilaterally) Psychiatric/Neurological: Anxiety All Other Systemes Reviewed Negative Unless Noted: Yes Past Xdiuuhy-Ioigyc-Otjvpl Hx Patient Social History Tobacco Use?: No Substance use?: No Immunizations Up To Date Tetanus Booster (TDap): Unknown First/Initial COVID19 Vaccinat: 2 VACCINES Second COVID19 Vaccination Yg: 2 VACCINES Seasonal Allergies Seasonal Allergies: Yes Past Medical History Surgery/Hospitalization HX: SUPRAPUBIC CATH Surgeries: Yes (lesion from neck, suprapubic cath, foot) Bladder Surgery Respiratory: No Cardiac: Yes High Cholesterol, Hypertension Neurological: No Reproductive Disorders: No Sexually Transmitted Disease: No HIV/AIDS: No Genitourinary: Yes (suprapubic catheter) Prostate Problems, Neurogenic Bladder Gastrointestinal: Yes Gastroesophageal Reflux, Hemorrhoids, Polyps Musculoskeletal: No Endocrine: No HEENT: Yes (GLASSES) Double Vision Loss of Vision: Denies Hearing Impairment: Hard of Hearing, Bilateral Hearing Aide Cancer: Yes Skin Psychosocial: Yes Anxiety, Depression Integumentary: Yes (skin ca) Blood Disorders: No Adverse Reaction/Blood Tranf: No (N/A) Family Medical History No Pertinent Family Hx Physical Exam Vital Signs Vital Signs - First Documented 06/16/21 08:15 Temp 36.5 Pulse 107 Resp 16 B/P (MAP) 174/81 (112) Pulse Ox 98 O2 Delivery Room Air Capillary Refill : Less Than 3 Seconds Height, Weight, BMI Height: 5'8.00" Weight: 155lbs. 0.0oz. [id number]; 35.00 BMI Method:Stated General Appearance: WD/WN, no apparent distress Cardiovascular: regular rate, rhythm Respiratory: lungs clear, normal breath sounds, no respiratory distress Gastrointestinal: non tender, soft, other (Suprapubic catheter present in the abdomen) Male: normal genitalia Extremities: normal inspection Neurologic/Psychiatric: alert, normal mood/affect, oriented x 3 Skin: normal color, warm/dry, other (Candidal dermatitis in the intertriginous folds of the groin bilaterally) Progress/Results/Core Measures Suspected Sepsis SIRS Temperature: Pulse: 107 Respiratory Rate: 16 Blood Pressure 174 /81 Mean: 112 Results/Orders Vital Signs/I&O 06/16/21 08:15 Temp 36.5 Pulse 107 Resp 16 B/P (MAP) 174/81 (112) Pulse Ox 98 O2 Delivery Room Air Capillary Refill : Less Than 3 Seconds Blood Pressure Mean: 112 Progress Note : Time: 08:42 Progress Note Patient was seen in the emergency department yesterday with his candidal dermatitis. He was prescribed Diflucan and nystatin powder. Labs from yesterday were reviewed. All at his baseline. Patient is strongly encouraged to follow-up with his primary care physician. Also with Dr. Doran. He verbalizes understanding. All questions are sought and answered. Patient is stable for discharge. Departure Impression Primary Impression: Encounter for suprapubic catheter care Additional Impression: Candidal dermatitis Disposition: 01 HOME, SELF-CARE Condition: Stable Departure-Patient Inst. Decision time for Depature: 08:37 Referrals: SHARON EARL DO (PCP/Family) Primary Care Physician Patient Instructions: How to Care for Your Suprapubic Urinary Catheter Add. Discharge Instructions: continue your medications as prescribed. Use the medication (powder for the groin) for the skin infection as prescribed. Call Dr Earl's office friday for a recheck appointment on the infection in your groin next week. Return to the Emergency Department for any new, emergent or concerning symptoms. LETITIA MARIE MD Jun 16, 2021 08:39
== END 2021-06-16 09:11 | disposition home or self-care (01) ==
LOC: EDUNIT# 08:10 → ER 08:11
DX: T83.198A Other mechanical complication of other urinary devices and implants, initial encounter (principal); B37.2 Candidiasis of skin and nail; I10 Essential (primary) hypertension; E78.00 Pure hypercholesterolemia, unspecified; K21.9 Gastro-esophageal reflux disease without esophagitis; F32.9 Major depressive disorder, single episode, unspecified; Z79.899 Other long term (current) drug therapy
CPT/HCPCS: 51702

== ENCOUNTER → 2021-06-21 | Outpatient (CLI) | payer MEDICARE, MEDICAID ==
[2021-06-21 11:55] LABS: BILIRUBIN,URINE NEGATIVE (NEGATIVE); CLARITY,URINE CLEAR; COLOR,URINE YELLOW; GLUCOSE, URINE (UA) NEGATIVE (NEGATIVE); KETONES,URINE NEGATIVE (NEGATIVE); LEUKOCYTE ESTERASE ,URINE 2+ (NEGATIVE); NITRITE,URINE NEGATIVE (NEGATIVE); PROTEIN,URINE NEGATIVE (NEGATIVE)
[2021-06-21 12:03] LABS: BACTERIA,URINE NEGATIVE /HPF
== END ==
LOC: LAB 11:33
PROVIDERS: ATTEND Family Medicine
DX: N39.0 Urinary tract infection, site not specified (principal)
CPT/HCPCS: 81000; 87088

== ENCOUNTER → 2021-06-28 | Outpatient (CLI) | payer MEDICARE, MEDICAID ==
[2021-06-28 10:45] LABS: CALCIUM 8.9 MG/DL (8.5-10.1); CREATININE SERUM 1.38 MG/DL (0.60-1.30); POTASSIUM 3.8 MMOL/L (3.6-5.0)
== END ==
LOC: LAB 10:12
PROVIDERS: ATTEND Family Medicine
DX: N28.9 Disorder of kidney and ureter, unspecified (principal)
CPT/HCPCS: 36415; 80048

== ENCOUNTER 2021-08-12 12:52 | Emergency (ER) | payer MEDICARE, MEDICAID ==
[~2021-08-12] VITALS: Ht 172 cm; Wt 103.0 kg
[~2021-08-12 12:52] MED LIST changes: +SCOP1PAT10 TD; -SCOP1PAT11 TD
[2021-08-12 13:27] LABS: BILIRUBIN,URINE NEGATIVE (NEGATIVE); CLARITY,URINE CLOUDY; COLOR,URINE YELLOW; GLUCOSE, URINE (UA) NEGATIVE (NEGATIVE); KETONES,URINE NEGATIVE (NEGATIVE); LEUKOCYTE ESTERASE ,URINE 3+ (NEGATIVE); NITRITE,URINE POSITIVE (NEGATIVE); PH,URINE 7.5 (5-9); PROTEIN,URINE NEGATIVE (NEGATIVE)
[2021-08-12 13:42] LABS: BASOPHILS # (AUTO) 0.1 10^3/uL (0.0-0.1); BASOPHILS % (AUTO) 1 % (0-10); EOSINOPHILS # (AUTO) 0.4 10^3/uL (0.0-0.3); EOSINOPHILS % (AUTO) 3 % (0-10); HEMATOCRIT 35 % (40-54); HEMOGLOBIN 11.5 g/dL (13.3-17.7); LYMPHOCYTES # (AUTO) 1.3 10^3/uL (1.0-4.0); LYMPHOCYTES % (AUTO) 11 % (12-44); MEAN CORPUSCULAR HEMOGLOBIN 29 pg (25-34); MEAN CORPUSCULAR HGB CONC 33 g/dL (32-36); MEAN CORPUSCULAR VOLUME 87 fL (80-99); MEAN PLATELET VOLUME 10.6 fL (9.0-12.2); MONOCYTES # (AUTO) 1.1 10^3/uL (0.0-1.0); MONOCYTES % (AUTO) 9 % (0-12); NEUTROPHILS # (AUTO) 9.1 10^3/uL (1.8-7.8); NEUTROPHILS % (AUTO) 76 % (42-75); PLATELET COUNT 348 10^3/uL (130-400); WHITE BLOOD COUNT 11.9 10^3/uL (4.3-11.0)
[2021-08-12 13:42] LABS: AMPHETAMINE SCREEN, URINE NEGATIVE (NEGATIVE); BARBITURATE SCREEN URINE NEGATIVE (NEGATIVE); BENZODIAZEPINES SCREEN URINE NEGATIVE (NEGATIVE); CANNABINOID SCREEN, URINE NEGATIVE (NEGATIVE); COCAINE SCREEN URINE NEGATIVE (NEGATIVE); METHADONE STAT NEGATIVE (NEGATIVE); METHAMPHETAMINE SCREEN URINE S NEGATIVE (NEGATIVE); OPIATE SCREEN URINE NEGATIVE (NEGATIVE); OXYCODONE STAT NEGATIVE (NEGATIVE); PROPOXYPHENE STAT NEGATIVE (NEGATIVE); TRICYCLIC ANTIDEPRESSANTS SCRE NEGATIVE (NEGATIVE)
[2021-08-12 13:59] LABS: ALBUMIN 3.8 GM/DL (3.2-4.5); CHLORIDE 101 MMOL/L (98-107); SODIUM 132 MMOL/L (135-145)
[2021-08-12 14:00] LABS: AMORPHOUS SEDIMENT,UR FEW AMOR PHOSPHATE /LPF; BACTERIA,URINE TRACE /HPF; WBC,URINE 25-50 /HPF
[2021-08-12] MEDS ORDERED: LORazepam 0.5 MG (ATIVAN) TABLET PO STA (14:00)
[2021-08-12 14:01] LABS: CALCIUM 9.1 MG/DL (8.5-10.1)
[2021-08-12 14:02] LABS: GLUCOSE 113 MG/DL (70-105); TOTAL PROTEIN 6.9 GM/DL (6.4-8.2)
[2021-08-12 14:03] LABS: CARBON DIOXIDE 20 MMOL/L (21-32)
[2021-08-12 14:04] LABS: BILIRUBIN,TOTAL 0.3 MG/DL (0.1-1.0)
[2021-08-12 14:06] LABS: ALKALINE PHOSPHATASE 61 U/L (40-136); CREATININE SERUM 1.55 MG/DL (0.60-1.30); GFR ESTIMATED 44
[2021-08-12 14:07] LABS: BUN/CREATININE RATIO 12
[2021-08-12 14:08] LABS: SALICYLATE < 5.0 MG/DL (5.0-20.0)
[2021-08-12 14:09] LABS: ALANINE AMINOTRANSFERASE 40 U/L (0-55)
[2021-08-12 14:11] LABS: ACETAMINOPHEN < 10 UG/ML (10-30)
[2021-08-12] MEDS ORDERED: LIDOCAINE 1% INJ 20 ML 20 ML VIAL INJ ONE (14:15)
[2021-08-12] MEDS ORDERED: cefTRIAXone 1,000 MG VIAL IM ONE (14:15)
--- NOTE | 2021-08-12 14:23 | ED Psychosocial ---
General Chief Complaint: Psych/Social Disorder Stated Complaint: MENTAL HEALTH EVAL Nursing Triage Note: PT TO ED W/ C/O FEELING "NERVOUS". REPORTS HE FEELS "OUT OF CONTROL". PT DENIES SUICIDAL/HOMICIDAL IDEATIONS AT THIS TIME. FRIEND AT BEDSIDE STATES PT "NEVER GETS AGGRESSIVE, SUICIDAL OR HOMICIDAL". STATES "HE BUILDS UP TO THIS EVERY ONCE IN A WHILE BUT NEVER DOES ANYTHING ABOUT IT." Source: patient Exam Limitations: no limitations History of Present Illness Date Seen by Provider: Aug 12, 2021 Allergies and Home Medications Allergies Coded Allergies: Penicillins (Verified Allergy, Unknown, FROM CHILDHOOD, 05/02/20) Reacted as a child per uncoded allergy Patient Home Medication List Acetaminophen (Tylenol Arthritis) 650 Mg Tablet.er, 650 MG PO BID PRN for PAIN-MILD (1-4), (Reported) Entered as Reported by: SENIA LUNA on 11/27/20 1218 Atenolol/Chlorthalidone (Atenolol-Chlorthalidone 50-25) 1 Each Tablet, 1 EACH PO DAILY, (Reported) Entered as Reported by: ELLIS DIXON on 02/19/19 1347 Atorvastatin Calcium (Atorvastatin Calcium) 80 Mg Tablet, 40 MG PO HS, (Reported) Entered as Reported by: ADALBERTO VILLALOBOS on 05/02/20 1332 Bupropion HCl (Bupropion Xl) 150 Mg Tab.er.24h, 150 MG PO DAILY, (Reported) Entered as Reported by: SENIA LUNA on 11/27/20 1156 Cefuroxime Axetil (Cefuroxime) 250 Mg Tablet, 250 MG PO BID Prescribed by: KAYLEY DANIEL on 08/12/21 1429 Cyanocobalamin (Vitamin B-12) (Vitamin B-12) 500 Mcg Tablet, 1,000 MCG PO DAILY, (Reported) Entered as Reported by: SENIA LUNA on 11/27/20 1156 Famotidine (Famotidine) 40 Mg Tablet, 40 MG PO DAILY, (Reported) Entered as Reported by: ADALBERTO VILLALOBOS on 05/02/20 1332 Fluconazole (Diflucan) 150 Mg Tablet, 150 MG PO ONCE Prescribed by: ULISES YODER on 06/15/21 0824 Fluticasone Propionate (Flonase Allergy Relief) 9.9 Ml [place].susp, 1 SPRAY NSEACH BID, (Reported) Entered as Reported by: SENIA LUNA on 11/27/20 1156 Lorazepam (Ativan) 0.5 Mg Tablet, 0.5 MG PO DAILY PRN for ANXIETY Prescribed by: KAYLEY DANIEL on 08/12/21 1430 Magnesium Oxide (Magnesium Oxide) 420 Mg Tablet, 420 MG PO BID, (Reported) Entered as Reported by: ELLIS DIXON on 02/19/19 1347 Nystatin (Nystatin) 15 Gm Powder, 15 GM TP BID PRN for RASH Prescribed by: ULISES YODER on 06/15/21 0824 Potassium Chloride (Potassium Chloride) 20 Meq Tablet.er, 20 MEQ PO DAILY, (Reported) Entered as Reported by: ELLIS DIXON on 02/19/19 1347 Past Cnvgfbc-Tyccaf-Kksydj Hx Patient Social History Tobacco Use?: No Substance use?: No Alcohol Use?: No Pt feels they are or have been: No Immunizations Up To Date Tetanus Booster (TDap): Unknown First/Initial COVID19 Vaccinat: 2 VACCINES Second COVID19 Vaccination Yg: 2 VACCINES Third COVID19 Vaccination Date: 2 VACCINES Seasonal Allergies Seasonal Allergies: Yes Past Medical History Surgery/Hospitalization HX: NO RECENT MEDICAL HX Surgeries: Yes (lesion from neck, suprapubic cath, foot) Bladder Surgery Respiratory: No Cardiac: Yes High Cholesterol, Hypertension Neurological: No Reproductive Disorders: No Sexually Transmitted Disease: No HIV/AIDS: No Genitourinary: Yes (suprapubic catheter) Prostate Problems, Neurogenic Bladder Gastrointestinal: Yes Gastroesophageal Reflux, Hemorrhoids, Polyps Musculoskeletal: No Endocrine: No HEENT: Yes (GLASSES) Double Vision Loss of Vision: Denies Hearing Impairment: Hard of Hearing, Bilateral Hearing Aide Cancer: Yes Skin Psychosocial: Yes Anxiety, Depression Integumentary: Yes (skin ca) Blood Disorders: No Adverse Reaction/Blood Tranf: No (N/A) Family Medical History No Pertinent Family Hx Physical Exam Vital Signs - First Documented 08/12/21 13:11 Temp 36.0 Pulse 73 Resp 16 B/P (MAP) 123/72 (89) Pulse Ox 95 O2 Delivery Room Air Capillary Refill : Less Than 3 Seconds Height, Weight, BMI Height: 5'8.00" Weight: 155lbs. 0.0oz. [id number]; 34.00 BMI Method:Stated Progress/Results/Core Measures Results/Orders Lab Results Laboratory Tests Test 08/12/21 13:11 08/12/21 13:28 Range/Units Urine Color YELLOW Urine Clarity CLOUDY Urine pH 7.5 5-9 Urine Specific [place] 1.010 L 1.016-1.022 Urine Protein NEGATIVE NEGATIVE Urine Glucose (UA) NEGATIVE NEGATIVE Urine Ketones NEGATIVE NEGATIVE Urine Nitrite POSITIVE H NEGATIVE Urine Bilirubin NEGATIVE NEGATIVE Urine Urobilinogen 0.2 < = 1.0 MG/DL Urine Leukocyte Esterase 3+ H NEGATIVE Urine RBC (Auto) 1+ H NEGATIVE Urine RBC 2-5 H /HPF Urine WBC 25-50 H /HPF Urine Crystals PRESENT H /LPF Urine Amorphous Sediment FEW MAGALIE PHOSPHATE H /LPF Urine Bacteria TRACE /HPF Urine Casts NONE /LPF Urine Mucus NEGATIVE /LPF Urine Culture Indicated YES Urine Opiates Screen NEGATIVE NEGATIVE Urine Oxycodone Screen NEGATIVE NEGATIVE Urine Methadone Screen NEGATIVE NEGATIVE Urine Propoxyphene Screen NEGATIVE NEGATIVE Urine Barbiturates Screen NEGATIVE NEGATIVE Ur Tricyclic Antidepressants Screen NEGATIVE NEGATIVE Urine Phencyclidine Screen NEGATIVE NEGATIVE Urine Amphetamines Screen NEGATIVE NEGATIVE Urine Methamphetamines Screen NEGATIVE NEGATIVE Urine Benzodiazepines Screen NEGATIVE NEGATIVE Urine Cocaine Screen NEGATIVE NEGATIVE Urine Cannabinoids Screen NEGATIVE NEGATIVE White Blood Count 11.9 H 4.3-11.0 10^3/uL Red Blood Count 3.98 L 4.30-5.52 10^6/uL Hemoglobin 11.5 L 13.3-17.7 g/dL Hematocrit 35 L 40-54 % Mean Corpuscular Volume 87 80-99 fL Mean Corpuscular Hemoglobin 29 25-34 pg Mean Corpuscular Hemoglobin Concent 33 32-36 g/dL Red Cell Distribution Width 13.2 10.0-14.5 % Platelet Count 348 130-400 10^3/uL Mean Platelet Volume 10.6 9.0-12.2 fL Immature Granulocyte % (Auto) 0 % Neutrophils (%) (Auto) 76 H 42-75 % Lymphocytes (%) (Auto) 11 L 12-44 % Monocytes (%) (Auto) 9 0-12 % Eosinophils (%) (Auto) 3 0-10 % Basophils (%) (Auto) 1 0-10 % Neutrophils # (Auto) 9.1 H 1.8-7.8 10^3/uL Lymphocytes # (Auto) 1.3 1.0-4.0 10^3/uL Monocytes # (Auto) 1.1 H 0.0-1.0 10^3/uL Eosinophils # (Auto) 0.4 H 0.0-0.3 10^3/uL Basophils # (Auto) 0.1 0.0-0.1 10^3/uL Immature Granulocyte # (Auto) 0.1 0.0-0.1 10^3/uL Sodium Level 132 L 135-145 MMOL/L Potassium Level 4.0 3.6-5.0 MMOL/L Chloride Level 101 98-107 MMOL/L Carbon Dioxide Level 20 L 21-32 MMOL/L Anion Gap 11 5-14 MMOL/L Blood Urea Nitrogen 19 H 7-18 MG/DL Creatinine 1.55 H 0.60-1.30 MG/DL Estimat Glomerular Filtration Rate 44 BUN/Creatinine Ratio 12 Glucose Level 113 H 70-105 MG/DL Calcium Level 9.1 8.5-10.1 MG/DL Corrected Calcium 9.3 8.5-10.1 MG/DL Total Bilirubin 0.3 0.1-1.0 MG/DL Aspartate Amino Transf (AST/SGOT) 37 H 5-34 U/L Alanine Aminotransferase (ALT/SGPT) 40 0-55 U/L Alkaline Phosphatase 61 40-136 U/L Total Protein 6.9 6.4-8.2 GM/DL Albumin 3.8 3.2-4.5 GM/DL TSH [place] Testing 1.32 0.35-4.94 UIU/ML Salicylates Level < 5.0 L 5.0-20.0 MG/DL Acetaminophen Level < 10 L 10-30 UG/ML Serum Alcohol < 10 <10 MG/DL My Orders Orders - KAYLEY DANIEL INFORMATION SPECIALIST Cbc With Automated Diff (08/12/21 13:12) Comprehensive Metabolic Panel (08/12/21 13:12) Alcohol (08/12/21 13:12) Drug Screen Stat (Urine) (08/12/21 13:12) Acetaminophen (08/12/21 13:12) Salicylate (08/12/21 13:12) Ekg Tracing (08/12/21 13:12) Ed Iv/Invasive Line Start (08/12/21 13:12) Thyroid Analyzer (08/12/21 13:12) Monitor-Rhythm Ecg Trace Only (08/12/21 13:12) Lorazepam Tablet (Ativan Tablet) (08/12/21 14:00) Ceftriaxone (Rocephin) (08/12/21 14:15) Lidocaine 1% Inj 20 Ml (Xylocaine 1% Inj (08/12/21 14:15) Medications Given in ED Current Medications Medications Dose Ordered Sig/Julee Route Start Time Stop Time Status Last Admin Dose Admin Ceftriaxone Sodium 1,000 mg ONCE ONCE IM 08/12/21 14:15 08/12/21 14:16 DC 08/12/21 14:25 1,000 MG Lidocaine HCl 2.1 ml ONCE ONCE INJ 08/12/21 14:15 08/12/21 14:16 DC 08/12/21 14:25 2.1 ML Vital Signs/I&O 08/12/21 13:11 Temp 36.0 Pulse 73 Resp 16 B/P (MAP) 123/72 (89) Pulse Ox 95 O2 Delivery Room Air Blood Pressure Mean: 89 Departure Impression Primary Impression: Anxiety Additional Impression: UTI (urinary tract infection) Disposition: 01 HOME, SELF-CARE Condition: Improved Departure-Patient Inst. Decision time for Depature: 14:42 Referrals: SHARON EARL DO (PCP/Family) Primary Care Physician Patient Instructions: Anxiety, Adult (DC), Urinary Tract Infection, Adult ED Add. Discharge Instructions: Plan: 1. Take antibiotics as directed and complete full course. We will culture your urine and notify you if antibiotics need changed. 2. Take Ativan 0.5mg by mouth daily as needed for anxiety. 3. All discharge instructions reviewed with patient and/or family. Voiced understanding. Scripts Lorazepam (Ativan) 0.5 Mg Tablet 0.5 MG PO DAILY PRN for ANXIETY for 7 Days, #7 TAB 0 Refills Prov: KAYLEY DANIEL INFORMATION SPECIALIST 08/12/21 Cefuroxime Axetil (Cefuroxime) 250 Mg Tablet 250 MG PO BID for 10 Days, #20 TAB 0 Refills Prov: KAYLEY DANIEL INFORMATION SPECIALIST 08/12/21 KAYLEY DANIEL INFORMATION SPECIALIST Aug 12, 2021 14:23
[2021-08-12] MEDS ORDERED: CEFU250T80 PO (14:29)
[2021-08-12] MEDS ORDERED: LORA-404 PO (14:29)
[2021-08-12 14:56] VITALS: BP 137/80
== END 2021-08-12 14:48 | disposition home or self-care (01) ==
LOC: EDUNIT# 12:52 → ER 12:53
DX: F41.9 Anxiety disorder, unspecified (principal); N39.0 Urinary tract infection, site not specified; I10 Essential (primary) hypertension; K21.9 Gastro-esophageal reflux disease without esophagitis; E78.00 Pure hypercholesterolemia, unspecified; F32.9 Major depressive disorder, single episode, unspecified; Z79.899 Other long term (current) drug therapy
CPT/HCPCS: 80053; 80306; 81000; 84443; 85025; 87088; 93005; 99283; G0480 ×3; 36415; 80320; 80329

== ENCOUNTER 2021-08-16 18:19 | Emergency (ER) | payer MEDICARE, MEDICAID ==
[~2021-08-16] VITALS: Ht 173 cm; Wt 108.0 kg
[~2021-08-16 18:19] MED LIST changes: +CEFU250T80 PO; +LORA-404 PO
--- NOTE | 2021-08-16 18:42 | ED GU-Female ---
General Chief Complaint: - Reproductive Stated Complaint: GROIN PAIN Source: patient Exam Limitations: no limitations History of Present Illness Date Seen by Provider: Aug 16, 2021 Time Seen by Provider: 18:41 Initial Comments To ER by private vehicle with reports of suprapubic abdominal pain onset this afternoon. Currently on cefuroxime for urinary tract infection diagnosed here within the past week. No fever no chills. Has a chronic suprapubic Monk ca theter Timing/Duration: constant Severity/Quality: moderate Location: suprapubic Radiation: none Activities at Onset: none Prior Genitourinary Problems: none Associated Symptoms: denies symptoms Allergies and Home Medications Allergies Coded Allergies: Penicillins (Verified Allergy, Unknown, FROM CHILDHOOD, 05/02/20) Reacted as a child per uncoded allergy Patient Home Medication List Home Medication List Reviewed: Yes Acetaminophen (Tylenol Arthritis) 650 Mg Tablet.er, 650 MG PO BID PRN for PAIN- MILD (1-4), (Reported) Entered as Reported by: SENIA LUNA on 11/27/20 1218 Atenolol/Chlorthalidone (Atenolol-Chlorthalidone 50-25) 1 Each Tablet, 1 EACH PO DAILY, (Reported) Entered as Reported by: ELLIS DIXON on 02/19/19 1347 Atorvastatin Calcium (Atorvastatin Calcium) 80 Mg Tablet, 40 MG PO HS, (Re ported) Entered as Reported by: ADALBERTO VILLALOBOS on 05/02/20 1332 Bupropion HCl (Bupropion Xl) 150 Mg Tab.er.24h, 150 MG PO DAILY, (Reported) Entered as Reported by: SENIA LUNA on 11/27/20 1156 Cefuroxime Axetil (Cefuroxime) 250 Mg Tablet, 250 MG PO BID Prescribed by: KAYLEY DANIEL on 08/12/21 1429 Cyanocobalamin (Vitamin B-12) (Vitamin B-12) 500 Mcg Tablet, 1,000 MCG PO DAILY, (Reported) Entered as Reported by: SENIA LUNA on 11/27/20 1156 Famotidine (Famotidine) 40 Mg Tablet, 40 MG PO DAILY, (Reported) Entered as Reported by: ADALBERTO VILLALOBOS on 05/02/20 1332 Fluconazole (Diflucan) 150 Mg Tablet, 150 MG PO ONCE Prescribed by: ULISES YODER on 06/15/21 0824 Fluticasone Propionate (Flonase Allergy Relief) 9.9 Ml [place].susp, 1 SPRAY NSEACH BID, (Reported) Entered as Reported by: SENIA LUNA on 11/27/20 1156 Lorazepam (Ativan) 0.5 Mg Tablet, 0.5 MG PO DAILY PRN for ANXIETY Prescribed by: KAYLEY DANIEL on 08/12/21 1430 Magnesium Oxide (Magnesium Oxide) 420 Mg Tablet, 420 MG PO BID, (Reported) Entered as Reported by: ELLIS DIXON on 02/19/19 1347 Nystatin (Nystatin) 15 Gm Powder, 15 GM TP BID PRN for RASH Prescribed by: ULISES YODER on 06/15/21 0824 Potassium Chloride (Potassium Chloride) 20 Meq Tablet.er, 20 MEQ PO DAILY, (Reported) Entered as Reported by: ELLIS DIXON on 02/19/19 1347 Review of Systems Review of Systems Constitutional: see HPI EENTM: see HPI Respiratory: no symptoms reported Cardiovascular: no symptoms reported Gastrointestinal: abdominal pain Genitourinary: no symptoms reported Musculoskeletal: no symptoms reported Skin: no symptoms reported Psychiatric/Neurological: No Symptoms Reported Endocrine: No Symptoms Reported Past Pjoszef-Phxzmu-Zplbqv Hx Immunizations Up To Date Tetanus Booster (TDap): Unknown First/Initial COVID19 Vaccinat: 2 VACCINES Second COVID19 Vaccination Yg: 2 VACCINES Third COVID19 Vaccination Date: 2 VACCINES Seasonal Allergies Seasonal Allergies: Yes Past Medical History Surgery/Hospitalization HX: NO RECENT MEDICAL HX Surgeries: Yes (lesion from neck, suprapubic cath, foot) Bladder Surgery Respiratory: No Cardiac: Yes High Cholesterol, Hypertension Neurological: No Reproductive Disorders: No Sexually Transmitted Disease: No HIV/AIDS: No Genitourinary: Yes (suprapubic catheter) Prostate Problems, Neurogenic Bladder Gastrointestinal: Yes Gastroesophageal Reflux, Hemorrhoids, Polyps Musculoskeletal: No Endocrine: No HEENT: Yes (GLASSES) Double Vision Loss of Vision: Denies Hearing Impairment: Hard of Hearing, Bilateral Hearing Aide Cancer: Yes Skin Psychosocial: Yes Anxiety, Depression Integumentary: Yes (skin ca) Blood Disorders: No Adverse Reaction/Blood Tranf: No (N/A) Family Medical History No Pertinent Family Hx Physical Exam Vital Signs Vital Signs - First Documented 08/16/21 18:25 Temp 36.1 Pulse 109 Resp 18 B/P (MAP) 189/100 (129) Pulse Ox 97 O2 Delivery Room Air Capillary Refill : Height, Weight, BMI Height: 5'8.00" Weight: 155lbs. 0.0oz. 70.885788nf; 34.00 BMI Method:Stated General Appearance: WD/WN, no apparent distress HEENT: PERRL/EOMI, normal ENT inspection Neck: non-tender, full range of motion Respiratory: lungs clear, normal breath sounds, no respiratory distress, no accessory muscle use Gastrointestinal: normal bowel sounds, non tender, soft Extremities: normal range of motion, non-tender Neurologic/Psychiatric: alert, normal mood/affect, oriented x 3 Skin: normal color, warm/dry Progress/Results/Core Measures Suspected Sepsis SIRS Temperature: Pulse: Respiratory Rate: Laboratory Tests 08/16/21 18:55: White Blood Count 12.3H Blood Pressure / Mean: Laboratory Tests 08/16/21 18:55: Creatinine 1.44H, Platelet Count 300, Total Bilirubin 0.3 Results/Orders Lab Results Laboratory Tests Test 08/16/21 18:55 Range/Units White Blood Count 12.3 H 4.3-11.0 10^3/uL Red Blood Count 3.66 L 4.30-5.52 10^6/uL Hemoglobin 10.6 L 13.3-17.7 g/dL Hematocrit 32 L 40-54 % Mean Corpuscular Volume 87 80-99 fL Mean Corpuscular Hemoglobin 29 25-34 pg Mean Corpuscular Hemoglobin Concent 33 32-36 g/dL Red Cell Distribution Width 12.9 10.0-14.5 % Platelet Count 300 130-400 10^3/uL Mean Platelet Volume 10.0 9.0-12.2 fL Immature Granulocyte % (Auto) 0 % Neutrophils (%) (Auto) 81 H 42-75 % Lymphocytes (%) (Auto) 8 L 12-44 % Monocytes (%) (Auto) 8 0-12 % Eosinophils (%) (Auto) 2 0-10 % Basophils (%) (Auto) 1 0-10 % Neutrophils # (Auto) 10.0 H 1.8-7.8 10^3/uL Lymphocytes # (Auto) 1.0 1.0-4.0 10^3/uL Monocytes # (Auto) 0.9 0.0-1.0 10^3/uL Eosinophils # (Auto) 0.2 0.0-0.3 10^3/uL Basophils # (Auto) 0.1 0.0-0.1 10^3/uL Immature Granulocyte # (Auto) 0.0 0.0-0.1 10^3/uL Urine Color YELLOW Urine Clarity [place] CLOUDY Urine pH 6.0 5-9 Urine Specific [place] 1.015 L 1.016-1.022 Urine Protein TRACE H NEGATIVE Urine Glucose (UA) NEGATIVE NEGATIVE Urine Ketones NEGATIVE NEGATIVE Urine Nitrite NEGATIVE NEGATIVE Urine Bilirubin NEGATIVE NEGATIVE Urine Urobilinogen 0.2 < = 1.0 MG/DL Urine Leukocyte Esterase 2+ H NEGATIVE Urine RBC (Auto) 2+ H NEGATIVE Urine RBC 2-5 H /HPF Urine WBC 25-50 H /HPF Urine Crystals NONE /LPF Urine Bacteria TRACE /HPF Urine Casts NONE /LPF Urine Mucus SMALL H /LPF Urine Culture Indicated YES Sodium Level 134 L 135-145 MMOL/L Potassium Level 3.5 L 3.6-5.0 MMOL/L Chloride Level 102 98-107 MMOL/L Carbon Dioxide Level 21 21-32 MMOL/L Anion Gap 11 5-14 MMOL/L Blood Urea Nitrogen 16 7-18 MG/DL Creatinine 1.44 H 0.60-1.30 MG/DL Estimat Glomerular Filtration Rate 48 BUN/Creatinine Ratio 11 Glucose Level 123 H 70-105 MG/DL Calcium Level 8.5 8.5-10.1 MG/DL Corrected Calcium 8.9 8.5-10.1 MG/DL Total Bilirubin 0.3 0.1-1.0 MG/DL Aspartate Amino Transf (AST/SGOT) 16 5-34 U/L Alanine Aminotransferase (ALT/SGPT) 22 0-55 U/L Alkaline Phosphatase 58 40-136 U/L Total Protein 6.4 6.4-8.2 GM/DL Albumin 3.5 3.2-4.5 GM/DL My Orders Orders - NIKKI CARDOZO [employer]OLLEY WIRE INSTALLER Cbc With Automated Diff (08/16/21 18:39) Comprehensive Metabolic Panel (08/16/21 18:39) Ed Iv/Invasive Line Start (08/16/21 18:39) Ua Culture If Indicated (08/16/21 18:39) Urine Culture (08/16/21 18:55) Sulfamethoxazole/Trimet Ds Tab (Bactrim (08/16/21 20:15) Vital Signs/I&O 08/16/21 18:25 Temp 36.1 Pulse 109 Resp 18 B/P (MAP) 189/100 (129) Pulse Ox 97 O2 Delivery Room Air Capillary Refill : Departure Communication (Admissions) I replaced his indwelling suprapubic catheter with a new one. This was apparently plugged as upon removal of the existing catheter there was immediate return of large volume of urine out the stoma. Impression Primary Impression: Acute urinary retention Additional Impression: Monk catheter problem Disposition: HOME, SELF-CARE Condition: Stable Departure-Patient Inst. Decision time for Depature: 20:08 Referrals: SHARON EARL DO (PCP/Family) Primary Care Physician Patient Instructions: Urinary Tract Infection, Adult (DC) Scripts Sulfamethoxazole/Trimethoprim (Bactrim Ds Tablet) 1 Each Tablet 1 EACH PO BID, #14 TAB Prov: NIKKI CARDOZO APRN 08/16/21 NIKKI CARDOZO APRN Aug 16, 2021 18:42
[2021-08-16 19:00] LABS: BILIRUBIN,URINE NEGATIVE (NEGATIVE); CLARITY,URINE SL CLOUDY; COLOR,URINE YELLOW; GLUCOSE, URINE (UA) NEGATIVE (NEGATIVE); KETONES,URINE NEGATIVE (NEGATIVE); LEUKOCYTE ESTERASE ,URINE 2+ (NEGATIVE); NITRITE,URINE NEGATIVE (NEGATIVE); PROTEIN,URINE TRACE (NEGATIVE)
[2021-08-16 19:07] LABS: BASOPHILS # (AUTO) 0.1 10^3/uL (0.0-0.1); BASOPHILS % (AUTO) 1 % (0-10); EOSINOPHILS # (AUTO) 0.2 10^3/uL (0.0-0.3); EOSINOPHILS % (AUTO) 2 % (0-10); HEMATOCRIT 32 % (40-54); HEMOGLOBIN 10.6 g/dL (13.3-17.7); LYMPHOCYTES % (AUTO) 8 % (12-44); MEAN CORPUSCULAR HEMOGLOBIN 29 pg (25-34); MEAN CORPUSCULAR HGB CONC 33 g/dL (32-36); MEAN CORPUSCULAR VOLUME 87 fL (80-99); MONOCYTES # (AUTO) 0.9 10^3/uL (0.0-1.0); MONOCYTES % (AUTO) 8 % (0-12); NEUTROPHILS % (AUTO) 81 % (42-75); PLATELET COUNT 300 10^3/uL (130-400); WHITE BLOOD COUNT 12.3 10^3/uL (4.3-11.0)
[2021-08-16 19:15] LABS: ALBUMIN 3.5 GM/DL (3.2-4.5); POTASSIUM 3.5 MMOL/L (3.6-5.0)
[2021-08-16 19:16] LABS: CALCIUM 8.5 MG/DL (8.5-10.1)
[2021-08-16 19:18] LABS: TOTAL PROTEIN 6.4 GM/DL (6.4-8.2)
[2021-08-16 19:19] LABS: BILIRUBIN,TOTAL 0.3 MG/DL (0.1-1.0)
[2021-08-16 19:38] LABS: CREATININE SERUM 1.44 MG/DL (0.60-1.30)
[2021-08-16 20:02] LABS: BACTERIA,URINE TRACE /HPF; WBC,URINE 25-50 /HPF
[2021-08-16] MEDS ORDERED: SULF1TAB38 PO (20:10)
[2021-08-16] MEDS ORDERED: TRIM/SULFAMETH 160/800 (SEPTRA DS) TAB PO ONE (20:15)
[2021-08-16 20:20] VITALS: BP 169/92
== END 2021-08-16 20:19 | disposition home or self-care (01) ==
LOC: EDUNIT# 18:19 → ER 18:22
DX: R33.9 Retention of urine, unspecified (principal); T83.098A Other mechanical complication of other urinary catheter, initial encounter; I10 Essential (primary) hypertension; E78.00 Pure hypercholesterolemia, unspecified; K21.9 Gastro-esophageal reflux disease without esophagitis; F41.9 Anxiety disorder, unspecified; F32.9 Major depressive disorder, single episode, unspecified; Z79.899 Other long term (current) drug therapy
CPT/HCPCS: 36415; 80053; 81000; 85025; 87088

== ENCOUNTER 2021-08-19 11:09 | Emergency (ER) | payer MEDICARE, MEDICAID ==
[~2021-08-19] VITALS: Ht 172 cm; Wt 104.0 kg
--- NOTE | 2021-08-19 11:46 | ED GU-Male ---
General Chief Complaint: Catheter/Drain/Tube Problems Stated Complaint: CATHETER ISSUES/CONSTIPATION Nursing Triage Note: PT ARRIVES TO ER WITH C/O CONSTIPATION AND POSSIBLE BLOCKED SUPRAPUBIC CATHETER. PT WAS SEEN HERE FOR THE SAME THING 3 DAYS AGO Source: patient Exam Limitations: no limitations History of Present Illness Date Seen by Provider: Aug 19, 2021 Time Seen by Provider: 11:25 Initial Comments Here with report of catheter not draining and also concerns for possible constipation. Seen a few days ago for the same and started on Bactrim DS based on historical samples. States that he has had some diarrhea that has cleared up but now is having some difficulty with stools. Complains of central pain in the area of the bladder. Pain very similar to previous presentation. Denies blood in his urine or stool. Does have hemorrhoids and states those are little bit irritated currently. Denies fever or chills. Denies nausea or vomiting. Timing/Duration: this morning, getting worse Severity/Quality: moderate, aching Location: suprapubic, groin Radiation: none Activities at Onset: none Prior Genitourinary Problems: similar symptoms Modifying Factors: Improves With Defecating, Improves With Urinating Associated Symptoms: abdominal pain; No fever/chills, No lower back pain, No nausea/vomiting Allergies and Home Medications Allergies Coded Allergies: Penicillins (Verified Allergy, Unknown, FROM CHILDHOOD, 05/02/20) Reacted as a child per uncoded allergy Patient Home Medication List Home Medication List Reviewed: Yes Acetaminophen (Tylenol Arthritis) 650 Mg Tablet.er, 650 MG PO BID PRN for PAIN- MILD (1-4), (Reported) Entered as Reported by: SENIA LUNA on 11/27/20 1218 Atenolol/Chlorthalidone (Atenolol-Chlorthalidone 50-25) 1 Each Tablet, 1 EACH PO DAILY, (Reported) Entered as Reported by: ELLIS DIXON on 02/19/19 1347 Atorvastatin Calcium (Atorvastatin Calcium) 80 Mg Tablet, 40 MG PO HS, (Reported) Entered as Reported by: ADALBERTO VILLALOBOS on 05/02/20 1332 Bupropion HCl (Bupropion Xl) 150 Mg Tab.er.24h, 150 MG PO DAILY, (Reported) Entered as Reported by: SENIA LUNA on 11/27/20 1156 Cefuroxime Axetil (Cefuroxime) 250 Mg Tablet, 250 MG PO BID Prescribed by: KAYLEY DANIEL on 08/12/21 1429 Cyanocobalamin (Vitamin B-12) (Vitamin B-12) 500 Mcg Tablet, 1,000 MCG PO DAILY, (Reported) Entered as Reported by: SENIA LUNA on 11/27/20 1156 Famotidine (Famotidine) 40 Mg Tablet, 40 MG PO DAILY, (Reported) Entered as Reported by: ADALBERTO VILLALOBOS on 05/02/20 1332 Fluconazole (Diflucan) 150 Mg Tablet, 150 MG PO ONCE Prescribed by: ULISES YODER on 06/15/21 0824 Fluticasone Propionate (Flonase Allergy Relief) 9.9 Ml [place].susp, 1 SPRAY NSEACH BID, (Reported) Entered as Reported by: SENIA LUNA on 11/27/20 1156 Lorazepam (Ativan) 0.5 Mg Tablet, 0.5 MG PO DAILY PRN for ANXIETY Prescribed by: KAYLEY DANIEL on 08/12/21 1430 Magnesium Oxide (Magnesium Oxide) 420 Mg Tablet, 420 MG PO BID, (Reported) Entered as Reported by: ELLIS DIXON on 02/19/19 1347 Nystatin (Nystatin) 15 Gm Powder, 15 GM TP BID PRN for RASH Prescribed by: ULISES YODER on 06/15/21 0824 Potassium Chloride (Potassium Chloride) 20 Meq Tablet.er, 20 MEQ PO DAILY, (Reported) Entered as Reported by: ELLIS DIXON on 02/19/19 1347 Sulfamethoxazole/Trimethoprim (Bactrim Ds Tablet) 1 Each Tablet, 1 EACH PO BID Prescribed by: NIKKI CARDOZO on 08/16/212009 Review of Systems Review of Systems Constitutional: see HPI; No chills, No fever EENTM: No nose congestion, No throat pain Respiratory: No cough, No short of breath Gastrointestinal: abdominal pain, constipation, diarrhea; No nausea, No vomiting Genitourinary: see HPI Musculoskeletal: no symptoms reported Skin: no symptoms reported All Other Systemes Reviewed Negative Unless Noted: Yes Past Ttdfhem-Iyfdqy-Utawqa Hx Patient Social History Tobacco Use?: No Substance use?: No Alcohol Use?: No Pt feels they are or have been: No Immunizations Up To Date Tetanus Booster (TDap): Unknown Influenza Vaccine Up-to-Date: Yes; Up-to-Date First/Initial COVID19 Vaccinat: 12/10/20 Second COVID19 Vaccination Yg: 01/10/21 Third COVID19 Vaccination Date: 2 VACCINES COVID19 Vaccine Environmental Programs Specialist: DEBO Seasonal Allergies Seasonal Allergies: Yes Past Medical History Surgery/Hospitalization HX: NO RECENT MEDICAL HX Surgeries: Yes (lesion from neck, suprapubic cath, foot) Bladder Surgery Respiratory: No Cardiac: Yes High Cholesterol, Hypertension Neurological: No Reproductive Disorders: No Sexually Transmitted Disease: No HIV/AIDS: No Genitourinary: Yes (suprapubic catheter) Prostate Problems, Neurogenic Bladder Gastrointestinal: Yes Gastroesophageal Reflux, Hemorrhoids, Polyps Musculoskeletal: No Endocrine: No HEENT: Yes (GLASSES) Double Vision Loss of Vision: Denies Hearing Impairment: Hard of Hearing, Bilateral Hearing Aide Cancer: Yes Skin Psychosocial: Yes Anxiety, Depression Integumentary: Yes (skin ca) Blood Disorders: No Adverse Reaction/Blood Tranf: No (N/A) Family Medical History Reviewed Nursing Family Hx No Pertinent Family Hx Physical Exam Vital Signs Vital Signs - First Documented 08/19/21 11:32 Temp 36.1 Pulse 101 Resp 20 B/P (MAP) 198/92 (127) Pulse Ox 96 O2 Delivery Room Air Capillary Refill : Less Than 3 Seconds Height, Weight, BMI Height: 5'8.00" Weight: 155lbs. 0.0oz. 70.237478rb; 35.00 BMI Method:Stated General Appearance: WD/WN, no apparent distress HEENT: PERRL/EOMI, pharynx normal Neck: full range of motion, supple Cardiovascular: regular rate, rhythm, no murmur Respiratory: lungs clear, normal breath sounds Gastrointestinal: soft, tenderness (Suprapubic mild tenderness with moderate fullness noted) Back: normal inspection, no CVA tenderness, no vertebral tenderness Extremities: non-tender, normal inspection Neurologic/Psychiatric: alert, normal mood/affect, oriented x 3 Skin: normal color, warm/dry Progress/Results/Core Measures Suspected Sepsis SIRS Temperature: Pulse: 101 Respiratory Rate: 20 Blood Pressure 198 /92 Mean: 127 Results/Orders Lab Results Laboratory Tests Test 08/19/21 12:00 Range/Units Urine Color YELLOW Urine Clarity CLEAR Urine pH 6.0 5-9 Urine Specific [place] 1.010 L 1.016-1.022 Urine Protein TRACE H NEGATIVE Urine Glucose (UA) NEGATIVE NEGATIVE Urine Ketones NEGATIVE NEGATIVE Urine Nitrite NEGATIVE NEGATIVE Urine Bilirubin NEGATIVE NEGATIVE Urine Urobilinogen 0.2 < = 1.0 MG/DL Urine Leukocyte Esterase 1+ H NEGATIVE Urine RBC (Auto) 2+ H NEGATIVE Urine RBC 5-10 H /HPF Urine WBC 5-10 H /HPF Urine Squamous Epithelial Cells NONE /HPF Urine Crystals NONE /LPF Urine Bacteria FEW H /HPF Urine Casts NONE /LPF Urine Mucus NEGATIVE /LPF Urine Culture Indicated YES My Orders Orders - GINNY CORTÉS MD Acute Abd Series (08/19/21 11:30) Ua Culture If Indicated (08/19/21 11:30) Catheter(Urinary) Insert & Ass 03,15 (08/19/21 11:30) Urine Culture (08/19/21 12:00) Vital Signs/I&O 08/19/21 11:32 Temp 36.1 Pulse 101 Resp 20 B/P (MAP) 198/92 (127) Pulse Ox 96 O2 Delivery Room Air Capillary Refill : Less Than 3 Seconds Blood Pressure Mean: 127 Progress Note : Progress Note Seen and evaluated. We will get UA. We will change suprapubic catheter by nursing. Acute abdominal series ordered. I have reviewed previous history including last culture which showed mixed sample. Historically, Bactrim DS works quite well and he is on that. We will repeat UA and culture today. Monitor patient. 1353: UA complete and is actually better than previous 1. I believe Bactrim DS is the right option for him for antibiotics. He has great relief after replacement of the Monk catheter replacement. X-ray does not show any acute findings. There is a question of moderate amount of stool and I did discuss with him regarding stool softening. Discharged home with return precautions. Patient verbalized understanding instructions and agreement with plan. Diagnostic Imaging Diagonstic Imaging: Xray Plain Films/CT/US/NM/MRI: chest, abdomen Comments [facility] [email or web address] [facility] [place], [place] NAME: MARGARET LI [facility] REC#: [id number] PT STATUS: REG ER : 1945 PHYSICIAN: GINNY CORTÉS MD ADMIT DATE: 08/19/21/ER Draft Date of Exam:08/19/21 ACUTE ABD SERIES CLINICAL INDICATION: Patient with constipation and possible blocked suprapubic catheter. EXAMS: X-ray of the chest, PA view, and x-ray of the abdomen, supine and upright views. COMPARISONS: X-ray of the chest and abdomen dated 06/12/2021. FINDINGS: LUNGS/ PLEURA: Lungs are clear. There is no pneumothorax. There is no pleural effusion. MEDIASTINUM: Unremarkable. PULMONARY VASCULATURE: Unremarkable. HEART: Unremarkable. BONES/ EXTRATHORACIC SOFT TISSUE: There are degenerative spurs involving the spine. There is left curvature of the lumbar spine.. ABDOMEN AND PELVIS: Unremarkable x-ray of the abdomen with nonobstructed bowel gas pattern. There is no evidence of abdominal free air. There are no focal calcifications overlying the expected regions/ pathways of both kidneys, ureters, and bladder regions. Tubing is seen overlying the pelvis which may represent suprapubic catheter. This tubing is new compared to the prior study. IMPRESSION: 1: There is no radiographic evidence of acute cardiopulmonary process. 2: Interval placement of tubing overlying the pelvis which may represent suprapubic catheter. 3: Otherwise, x-ray of the abdomen and pelvis is unremarkable. Dictated on workstation # [id number] Dict: 08/19/21 1314 Trans: 08/19/21 1321 [id number] Interpreted by: DAYRON AMARO MD Electronically signed by: Reviewed: Reviewed by Me Departure Impression Primary Impression: Acute urinary retention Additional Impression: Monk catheter problem Qualified Codes: T83.9XXA - Unspecified complication of genitourinary prosthetic device, implant and graft, initial encounter Disposition: HOME, SELF-CARE Condition: Improved Departure-Patient Inst. Decision time for Depature: 14:01 Referrals: SHARON EARL DO (PCP/Family) Primary Care Physician Patient Instructions: Constipation, Adult (DC), How to Care for Your Monk Catheter, Male, Urinary Retention (DC) Add. Discharge Instructions: All discharge instructions reviewed with patient and/or family. Voiced understanding. Continue medications as previously prescribed. Drink plenty of fluids. You may take [id number] MiraLAX or the generic, 1 capful twice daily for the next 3 days and then daily thereafter to keep stools soft. You may increase or decrease the dose to keep stools in normal range. Follow-up with your doctor in a few days for recheck. Return for worse pain, swelling, weakness, breathing problems, fever, vomiting or other concerns as needed. GINNY CORTÉS MD Aug 19, 2021 11:46
[2021-08-19 12:08] LABS: BILIRUBIN,URINE NEGATIVE (NEGATIVE); CLARITY,URINE CLEAR; COLOR,URINE YELLOW; GLUCOSE, URINE (UA) NEGATIVE (NEGATIVE); KETONES,URINE NEGATIVE (NEGATIVE); LEUKOCYTE ESTERASE ,URINE 1+ (NEGATIVE); NITRITE,URINE NEGATIVE (NEGATIVE); PROTEIN,URINE TRACE (NEGATIVE)
[2021-08-19 12:19] LABS: BACTERIA,URINE FEW /HPF
--- NOTE | 2021-08-19 13:22 | Diagnostic Imaging Report ---
CLINICAL INDICATION: Patient with constipation and possible blocked suprapubic catheter. EXAMS: X-ray of the chest, PA view, and x-ray of the abdomen, supine and upright views. COMPARISONS: X-ray of the chest and abdomen dated 06/12/2021. FINDINGS: LUNGS/ PLEURA: Lungs are clear. There is no pneumothorax. There is no pleural effusion. MEDIASTINUM: Unremarkable. PULMONARY VASCULATURE: Unremarkable. HEART: Unremarkable. BONES/ EXTRATHORACIC SOFT TISSUE: There are degenerative spurs involving the spine. There is left curvature of the lumbar spine.. ABDOMEN AND PELVIS: Unremarkable x-ray of the abdomen with nonobstructed bowel gas pattern. There is no evidence of abdominal free air. There are no focal calcifications overlying the expected regions/ pathways of both kidneys, ureters, and bladder regions. Tubing is seen overlying the pelvis which may represent suprapubic catheter. This tubing is new compared to the prior study. IMPRESSION: 1: There is no radiographic evidence of acute cardiopulmonary process. 2: Interval placement of tubing overlying the pelvis which may represent suprapubic catheter. 3: Otherwise, x-ray of the abdomen and pelvis is unremarkable. Dictated by: Dictated on workstation # [id number]
[2021-08-19 14:18] VITALS: BP 168/79
== END 2021-08-19 14:18 | disposition home or self-care (01) ==
LOC: EDUNIT# 11:09 → ER 11:10
DX: R33.9 Retention of urine, unspecified (principal); T83.098A Other mechanical complication of other urinary catheter, initial encounter; I10 Essential (primary) hypertension; F41.9 Anxiety disorder, unspecified; F32.9 Major depressive disorder, single episode, unspecified; E78.00 Pure hypercholesterolemia, unspecified; K21.9 Gastro-esophageal reflux disease without esophagitis; Z79.899 Other long term (current) drug therapy
CPT/HCPCS: 74022; 81000; 87088

== ENCOUNTER 2021-08-21 02:27 | Emergency (ER) | payer MEDICARE, MEDICAID ==
[~2021-08-21] VITALS: Ht 172.7 cm; Wt 103.4 kg
[2021-08-21 02:27] VITALS: BP 158/84
[2021-08-21] MEDS ORDERED: SERT-412 (02:33)
[2021-08-21] MEDS ORDERED: SULF1TAB34 (02:33)
[2021-08-21] MEDS ORDERED: LORA-404 (02:33)
--- NOTE | 2021-08-21 02:49 | ED GI ---
General Chief Complaint: Abdominal/GI Problems Stated Complaint: CONSTIPATION Nursing Triage Note: BROUGHT IN BY [facility] FOR C/O CONSTIPATION. REPORTS NO BM SINCE 08/18/21 Source of Information: Patient (SOMEWHAT LIMITED HISTORIAN) History of Present Illness Date Seen by Provider: Aug 21, 2021 Time Seen by Provider: 02:28 Initial Comments PT ARRIVES VIA EMS FROM HOME--PT LIVES ALONE C/O CONSTIPATION STATES HE HAS NOT HAD A BM SINCE 08/18 OR 08/19 PT TOOK 1 DOSE OF MIRALAX YESTERDAY, OTHERWISE HAS NOT TAKEN ANYTHING FOR THIS PROBLEM PT STATES HE IS PASSING GAS DENIES ABDOMINAL PAIN DENIES NAUSEA/VOMITING PT HAS CHRONIC SUPRAPUBIC CATHETER, AND WAS HERE 08/16 AND 08/19/21 FOR URINARY RETENTION AND SUPRAPUBIC CATHETER WAS REPLACED ON BOTH VISITS. PT DOES NOT VOICE ANY COMPLAINTS REGARDING SUPRAPUBIC CATHETER TONIGHT, EMPTIED IT PRIOR TO A RRIVAL PT HAD COMPLAINED OF CONSTIPATION ON VISIT ON 08/19/21 AND HAD XRAYS DONE--ESSENTIALLY NORMAL. PT WAS ADVISED AT THAT TIME TO TAKE MIRALAX EVERY DAY. HAS NOT ATTEMPTED TO SEE HIS PCP FOR THIS PROBLEM HAS HAD THIS PROBLEM IN THE PAST WAS ALSO SEEN HERE 08/12/21 FOR ANXIETY PCP: DR. EARL Allergies and Home Medications Allergies Coded Allergies: Penicillins (Verified Allergy, Unknown, FROM CHILDHOOD, 05/02/20) Reacted as a child per uncoded allergy Patient Home Medication List Home Medication List Reviewed: Yes Acetaminophen (Tylenol Arthritis) 650 Mg Tablet.er, 650 MG PO BID PRN for PAIN- MILD (1-4), (Reported) Entered as Reported by: SENIA LUNA on 11/27/20 1218 Atenolol/Chlorthalidone (Atenolol-Chlorthalidone 50-25) 1 Each Tablet, 1 EACH PO DAILY, (Reported) Entered as Reported by: ELLIS DIXON on 02/19/19 1347 Atorvastatin Calcium (Atorvastatin Calcium) 80 Mg Tablet, 40 MG PO HS, (Reported) Entered as Reported by: ADALBERTO VILLALOBOS on 05/02/20 1332 Bupropion HCl (Bupropion Xl) 150 Mg Tab.er.24h, 150 MG PO DAILY, (Reported) Entered as Reported by: SENIA LUNA on 11/27/20 1156 Cefuroxime Axetil (Cefuroxime) 250 Mg Tablet, 250 MG PO BID Prescribed by: KAYLEY DANIEL on 08/12/21 1429 Cyanocobalamin (Vitamin B-12) (Vitamin B-12) 500 Mcg Tablet, 1,000 MCG PO DAILY, (Reported) Entered as Reported by: SENIA LUNA on 11/27/20 1156 Famotidine (Famotidine) 40 Mg Tablet, 40 MG PO DAILY, (Reported) Entered as Reported by: ADALBERTO VILLALOBOS on 05/02/20 1332 Fluconazole (Diflucan) 150 Mg Tablet, 150 MG PO ONCE Prescribed by: ULISES YODER on 06/15/21 0824 Fluticasone Propionate (Flonase Allergy Relief) 9.9 Ml [place].susp, 1 SPRAY NSEACH BID, (Reported) Entered as Reported by: SENIA LUNA on 11/27/20 1156 Lorazepam (Ativan) 0.5 Mg Tablet, 0.5 MG PO DAILY PRN for ANXIETY Prescribed by: KAYLEY DANIEL on 08/12/21 1430 Lorazepam (Ativan) 0.5 Mg Tablet, (Reported) Entered as Reported by: STEPHEN YAO on 08/21/21232 Last Action: New Order Magnesium Oxide (Magnesium Oxide) 420 Mg Tablet, 420 MG PO BID, (Reported) Entered as Reported by: ELLIS DIXON on 02/19/19 1347 Nystatin (Nystatin) 15 Gm Powder, 15 GM TP BID PRN for RASH Prescribed by: ULISES YODER on 06/15/21 0824 Potassium Chloride (Potassium Chloride) 20 Meq Tablet.er, 20 MEQ PO DAILY, (Reported) Entered as Reported by: ELLIS DIXON on 02/19/19 1347 Sertraline HCl (Sertraline HCl) 25 Mg Tablet, (Reported) Entered as Reported by: STEPHEN YAO on 08/21/21232 Last Action: New Order Sulfamethoxazole/Trimethoprim (Bactrim Ds Tablet) 1 Each Tablet, 1 EACH PO BID Prescribed by: NIKKI CARDOZO on 08/16/212009 Sulfamethoxazole/Trimethoprim (Bactrim 400-80 mg Tablet) 1 Each Tablet, (Reported) Entered as Reported by: STEPHEN YAO on 08/21/21232 Last Action: New Order Review of Systems Review of Systems Constitutional: no symptoms reported Respiratory: No Symptoms Reported Cardiovascular: No Symptoms Reported Gastrointestinal: See HPI; Denies Abdominal Pain; Constipated; Denies Nausea, Denies Vomiting Genitourinary: No Symptoms Reported, See HPI Musculoskeletal: no symptoms reported Skin: no symptoms reported Psychiatric/Neurological: No Symptoms Reported Endocrine: No Symptoms Reported Hematologic/Lymphatic: No Symptoms Reported Past Vknkeuw-Lbvtva-Kzckbm Hx Patient Social History Tobacco Use?: No Substance use?: No Alcohol Use?: No Pt feels they are or have been: No Immunizations Up To Date Tetanus Booster (TDap): Unknown First/Initial COVID19 Vaccinat: 12/10/20 Second COVID19 Vaccination Yg: 01/10/21 Third COVID19 Vaccination Date: 2 VACCINES Seasonal Allergies Seasonal Allergies: Yes Past Medical History Surgery/Hospitalization HX: NO RECENT MEDICAL HX Surgeries: Yes (lesion from neck, suprapubic cath, foot) Bladder Surgery Respiratory: No Cardiac: Yes High Cholesterol, Hypertension Neurological: No Reproductive Disorders: No Sexually Transmitted Disease: No HIV/AIDS: No Genitourinary: Yes (suprapubic catheter) Prostate Problems, Neurogenic Bladder Gastrointestinal: Yes Gastroesophageal Reflux, Hemorrhoids, Polyps Musculoskeletal: No Endocrine: No HEENT: Yes (GLASSES) Double Vision Loss of Vision: Denies Hearing Impairment: Hard of Hearing, Bilateral Hearing Aide Cancer: Yes Skin Psychosocial: Yes Anxiety, Depression Integumentary: Yes (skin ca) Blood Disorders: No Adverse Reaction/Blood Tranf: No (N/A) Family Medical History No Pertinent Family Hx Physical Exam Vital Signs Vital Signs - First Documented 08/21/21 02:27 Temp 36.7 Pulse 106 Resp 16 B/P (MAP) 158/84 (108) Pulse Ox 98 O2 Delivery Room Air Capillary Refill : Less Than 3 Seconds Height/Weight/BMI Height: 5'8.00" Weight: 155lbs. 0.0oz. 70.481582ta; 34.00 BMI Method:Stated General Appearance: WD/WN, no apparent distress, other (SMILING, TALKATIVE. DOES NOT APPEAR TO BE IN ANY DISCOMFORT OR DISTRESS) Respiratory: normal breath sounds, no respiratory distress, no accessory muscle use Cardiovascular: regular rate, rhythm, no murmur Gastrointestinal: normal bowel sounds, non tender, soft, no organomegaly, other (SUPRAPUBIC CATHTER IN PLACE, LEG BAG IS EMPTY, BUT PT STATES HE EMPTIED IT PRIOR TO ARRIVAL. NO SIGNS OF INFECTION AT SITE. PT WITH EXTENSIVE CANDIDAL RASH AND EXUDATE TO BILATERAL INGUINAL AREAS. ) Rectal: normal rectal tone; No tenderness; other (LARGE AMOUNT OF DRIED STOOL RESIDUE AROUND RECTUM AND BUTTOCKS. PROSTATE LARGE AND VERY FIRM, BUT NON- TENDER. SMALL HARD PEBBLE OF STOOL IN RECTUM. NORMAL BROWN STOOL. ) Extremities: normal inspection Neurologic/Psychiatric: no motor/sensory deficits, alert, normal mood/affect, oriented x 3 Skin: normal color, warm/dry Progress/Results/Core Measures Results/Orders My Orders Orders - NICOLE SCOTT DO Abdomen/Kub 1view (08/21/21 02:37) Na Phos/Na Biphos Enema (Fleet Enema Leonardo (08/21/21 03:15) Medications Given in ED Current Medications Medications Dose Ordered Sig/Julee Route Start Time Stop Time Status Last Admin Dose Admin Sodium Biphosphate/ Sodium Phosphate 1 ea ONCE ONCE NH 08/21/21 03:15 08/21/21 03:16 DC 08/21/21 03:15 1 EA Vital Signs/I&O 08/21/21 02:27 Temp 36.7 Pulse 106 Resp 16 B/P (MAP) 158/84 (108) Pulse Ox 98 O2 Delivery Room Air Blood Pressure Mean: 108 Progress Progress Note : Progress Note PT SENT HOME WITH FLEET'S ENEMA AND INSTRUCTED ON HOW TO USE IT Diagnostic Imaging Comments KUB-- Reviewed: Reviewed by Me Departure Impression Primary Impression: Constipation Disposition: HOME, SELF-CARE Condition: Stable Departure-Patient Inst. Decision time for Depature: 03:10 Referrals: SHARON EARL DO (PCP/Family) Primary Care Physician Patient Instructions: Constipation, Adult (DC) Add. Discharge Instructions: USE FLEET'S ENEMA UP TO 2 TIMES A DAY NEEDED FOR BM YOU MAY ALSO USE DULCOLAX SUPPOSITORIES 2-3 TIMES A DAY NEEDED FOR BM TAKE MIRALAX EVERY 2 HOURS UNTIL YOUR BOWELS HAVE MOVED, THEN USE ONCE A DAY EVERY DAY--1 CAPFUL OF MIRALAX IN 8 OZ OF WATER, FOR EVERY DOSE FOLLOW UP WITH DR. EARL THIS WEEK FOR FURTHER CARE All discharge instructions reviewed with patient and/or family. Voiced understanding. NICOLE SCOTT DO Aug 21, 2021 02:49
[2021-08-21] MEDS ORDERED: FLEET ENEMA ADULT 1 EA BTL PR ONE (03:15)
--- NOTE | 2021-08-21 06:08 | Diagnostic Imaging Report ---
ABDOMEN/KUB 1VIEW INDICATION: Abdominal pain COMPARISON: 08/19/2021 TECHNIQUE: Single AP view of the abdomen FINDINGS: Nonobstructive bowel gas pattern. Moderate volume of colonic stool is unchanged. No abnormal soft tissue mineralizations. Stable degenerative changes in the lumbar spine. Stable tubing over lower pelvis which could represent a suprapubic catheter. IMPRESSION: 1. No adverse development since exam 2 days prior. Dictated by: Dictated on workstation # [id number]
== END 2021-08-21 03:18 | disposition home or self-care (01) ==
LOC: EDUNIT# 02:27 → ER 02:29
DX: K59.00 Constipation, unspecified (principal); I10 Essential (primary) hypertension; E78.00 Pure hypercholesterolemia, unspecified; F41.9 Anxiety disorder, unspecified; F32.9 Major depressive disorder, single episode, unspecified; K21.9 Gastro-esophageal reflux disease without esophagitis; Z79.899 Other long term (current) drug therapy
CPT/HCPCS: 74018

== ENCOUNTER 2021-08-24 18:23 | Emergency (ER) | payer MEDICARE, MEDICAID ==
[~2021-08-24] VITALS: Ht 172 cm; Wt 103.0 kg
[~2021-08-24 18:23] MED LIST changes: +LORA-404; +SERT-412; +SULF1TAB34
--- NOTE | 2021-08-24 19:28 | Diagnostic Imaging Report ---
EXAM: Abdomen/KUB 1 view. INDICATION: Abdominal pain. COMPARISON: 08/21/2021. FINDINGS: Nonspecific bowel gas pattern. The lung bases and diaphragm are not included on the nhuic-ua-rufo. No large stool burden. No suspicious radiopaque density. No acute osseous finding. IMPRESSION: No acute radiographic finding in the abdomen. Dictated by: Dictated on workstation # [id number]
--- NOTE | 2021-08-24 20:22 | ED General ---
General Chief Complaint: - Reproductive Stated Complaint: CATHETER BLOCKED/CONSTIPATION Nursing Triage Note: PT AMBULATORY TO ER WITH VISITOR. PT REPORTS HAS A URINARY CATHETER, REPORTS CHANGED THIS MORNING FROM NIGHT BAG TO LEG PAIN, REPORTS LITTLE OUTPUT IN CATHETER TODAY. PT ALSO C/O CONSTIPATION. PT WAS SEEN IN ER ON 08/19, GIVEN MIRALAX, PT RETURNED TO ER ON 08/21, RECEIVED AN ENEMA. PT STATES ONLY HAVING SMALL AMOUNT OF STOOL. Source of Information: Patient (VERY POOR HISTORIAN/VERY POOR MEMORY) History of Present Illness Date Seen by Provider: Aug 24, 2021 Time Seen by Provider: 18:59 Initial Comments PT ARRIVES VIA POV FROM HOME--FEMALE FRIEND/NEIGHBOR BRINGS HIM TO ER PT C/O CONSTIPATION, CLAIMS NO BM FOR A WEEK STATES HE HAS BEEN TAKING MIRALAX EVERY DAY ALSO C/O SUPRAPUBIC CATHETER NOT DRAINING--PT REPORTS TO ME THAT HE CANNOT REMEMBER WHEN HE LAST CHANGED IT. PT REPORTED TO RN THAT HE CHANGED OUT NIGHT TIME BAG TO LEG BAG THIS AM, AND HAS NOT EMPTIED IT ALL DAY--PT HAS APPROXIMATELY 20 ML URINE IN LEG BAG--URINE APPEARS CLEAR NO NAUSEA/VOMITING HAS CONTINUED TO EAT NORMALLY NO ABDOMINAL PAIN PT LIVES ALONE, HAS VERY POOR MEMORY PT WAS SEEN HERE 08/12/21 FOR ANXIETY PT WAS SEEN HERE 08/16, 08/19 AND 08/21 FOR COMPLAINTS OF CONSTIPATION AND SUPRAPUBIC CATHETER NOT WORKING. CATHETER HAS BEEN REPLACED EVERY TIME HE HAS COME TO ER. PT HAS BEEN INSTRUCTED ON USE OF ENEMAS, SUPPOSITORIES AND USING MIRALAX PT CLAIMS HE TRIED TO USE ENEMA, BUT NO RESULTS. PT WAS ALSO ADVISED TO FOLLOW UP WITH DR. EARL THIS PAST WEEK, PT STATES HE "GOT HIS DAYS MIXED UP AND MISSED HIS APPOINTMENT WITH DR. EARL" STATES HE RESCHEDULED APPOINTMENT FOR SOME TIME NEXT WEEK PCP: DR. EARL Allergies and Home Medications Allergies Coded Allergies: Penicillins (Verified Allergy, Unknown, FROM CHILDHOOD, 05/02/20) Reacted as a child per uncoded allergy Patient Home Medication List Home Medication List Reviewed: Yes Acetaminophen (Tylenol Arthritis) 650 Mg Tablet.er, 650 MG PO BID PRN for PAIN- MILD (1-4), (Reported) Entered as Reported by: SENIA LUNA on 11/27/20 1218 Atenolol/Chlorthalidone (Atenolol-Chlorthalidone 50-25) 1 Each Tablet, 1 EACH PO DAILY, (Reported) Entered as Reported by: ELLIS DIXON on 02/19/19 1347 Atorvastatin Calcium (Atorvastatin Calcium) 80 Mg Tablet, 40 MG PO HS, (Reported) Entered as Reported by: ADALBERTO VILLALOBOS on 05/02/20 1332 Bupropion HCl (Bupropion Xl) 150 Mg Tab.er.24h, 150 MG PO DAILY, (Reported) Entered as Reported by: SENIA LUNA on 11/27/20 1156 Cefuroxime Axetil (Cefuroxime) 250 Mg Tablet, 250 MG PO BID Prescribed by: KAYLEY DANIEL on 08/12/21 1429 Cyanocobalamin (Vitamin B-12) (Vitamin B-12) 500 Mcg Tablet, 1,000 MCG PO DAILY, (Reported) Entered as Reported by: SENIA LUNA on 11/27/20 1156 Famotidine (Famotidine) 40 Mg Tablet, 40 MG PO DAILY, (Reported) Entered as Reported by: ADALBERTO VILLALOBOS on 05/02/20 1332 Fluconazole (Diflucan) 150 Mg Tablet, 150 MG PO ONCE Prescribed by: ULISES YODER on 06/15/21 0824 Fluconazole (Diflucan) 150 Mg Tablet, 150 MG PO DAILY Prescribed by: NICOLE SCOTT on 08/24/212036 Fluticasone Propionate (Flonase Allergy Relief) 9.9 Ml [place].susp, 1 SPRAY NSEACH BID, (Reported) Entered as Reported by: SENIA LUNA on 11/27/20 1156 Lorazepam (Ativan) 0.5 Mg Tablet, 0.5 MG PO DAILY PRN for ANXIETY Prescribed by: KAYLEY DANIEL on 08/12/21 1430 Lorazepam (Ativan) 0.5 Mg Tablet, (Reported) Entered as Reported by: STEPHEN YAO on 08/21/21 0233 Magnesium Oxide (Magnesium Oxide) 420 Mg Tablet, 420 MG PO BID, (Reported) Entered as Reported by: ELLIS DIXON on 02/19/19 1347 Nystatin (Nystatin) 15 Gm Powder, 15 GM TP BID PRN for RASH Prescribed by: ULISES YODER on 06/15/21 0824 Nystatin (Nystatin) 1,000,000 Unit Powder.ea., 1,000,000 UNIT MC BID Prescribed by: NICOLE SCOTT on 08/24/212036 Potassium Chloride (Potassium Chloride) 20 Meq Tablet.er, 20 MEQ PO DAILY, (Reported) Entered as Reported by: ELLIS DIXON on 02/19/19 1347 Sertraline HCl (Sertraline HCl) 25 Mg Tablet, (Reported) Entered as Reported by: STEPHEN YAO on 08/21/21232 Sulfamethoxazole/Trimethoprim (Bactrim Ds Tablet) 1 Each Tablet, 1 EACH PO BID Prescribed by: NIKKI CARDOZO on 08/16/212009 Sulfamethoxazole/Trimethoprim (Bactrim 400-80 mg Tablet) 1 Each Tablet, (Reported) Entered as Reported by: STEPHEN YAO on 08/21/21232 Sulfamethoxazole/Trimethoprim (Bactrim Ds Tablet) 1 Each Tablet, 1 EACH PO BID Prescribed by: NICOLE SCOTT on 08/24/212042 Review of Systems Review of Systems Constitutional: no symptoms reported Respiratory: no symptoms reported Cardiovascular: no symptoms reported Gastrointestinal: see HPI Genitourinary: see HPI Psychiatric/Neurological: Other (POOR MEMORY) Past Teeykyw-Dqxgxw-Jczgng Hx Patient Social History Tobacco Use?: No Use of E-Cig and/or Vaping dev: No Substance use?: No Alcohol Use?: No Pt feels they are or have been: No Immunizations Up To Date Tetanus Booster (TDap): Unknown First/Initial COVID19 Vaccinat: NOV 2020 Second COVID19 Vaccination Yg: DECEMBER 2020 Third COVID19 Vaccination Date: 2 VACCINES COVID19 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 Seasonal Allergies Seasonal Allergies: Yes Past Medical History Surgeries: Yes (lesion from neck, suprapubic cath, foot) Bladder Surgery Respiratory: No Cardiac: Yes High Cholesterol, Hypertension Neurological: Yes (VERY POOR MEMORY) Reproductive Disorders: No Sexually Transmitted Disease: No HIV/AIDS: No Genitourinary: Yes (suprapubic catheter) Prostate Problems, Neurogenic Bladder Gastrointestinal: Yes Gastroesophageal Reflux, Chronic Constipation, Hemorrhoids, Polyps Musculoskeletal: No Endocrine: No HEENT: Yes (GLASSES) Double Vision Loss of Vision: Denies Hearing Impairment: Hard of Hearing, Bilateral Hearing Aide Cancer: Yes Skin Did You Recieve Any Treatments: Yes What Type of Treatment Did You: Surgical Intervention Psychosocial: Yes Anxiety, Depression Integumentary: Yes (skin ca; CANDIDAL INTERTRIGO) Blood Disorders: No Adverse Reaction/Blood Tranf: No (N/A) Family Medical History No Pertinent Family Hx PAST SURGICAL HISTORY: -SUPRAPUBIC CATHETER PLACEMENT FOR NEUROGENIC BLADDER AND BLADDER OUTLET OBSTRUCTION Physical Exam Vital Signs Vital Signs - First Documented 08/24/21 08/24/21 18:32 21:15 Temp 37.0 Pulse 90 Resp 18 B/P (MAP) 172/58 (96) Pulse Ox 95 O2 Delivery Room Air Capillary Refill : Height, Weight, BMI Height: 5'8.00" Weight: 155lbs. 0.0oz. 70.897474ry; 34.00 BMI Method:Stated General Appearance: No Apparent Distress, WD/WN, Other (SMILING, TALKATIVE, DOES NOT APPEAR TO BE IN ANY DISCOMFORT OR DISTRESS) Respiratory: Normal Breath Sounds, No Accessory Muscle Use, No Respiratory Distress Cardiovascular: Regular Rate, Rhythm, No Murmur Gastrointestinal: Non Tender, Soft; No Distended; Other (SUPRAPUBIC CATH SITE APPEARS NORMAL. 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 Norm as Tested Skin: Normal Color, Warm/Dry, Other (EXTENSIVE CANDIDAL INTERTRIGO IN BILATERAL INGUINAL AREAS WITH RASH AND EXUDATE) Progress/Results/Core Measures Suspected Sepsis SIRS Temperature: Pulse: 90 Respiratory Rate: 18 Blood Pressure 172 /58 Mean: 96 Results/Orders Lab Results Laboratory Tests Test 08/24/21 20:23 Range/Units Urine Color YELLOW Urine Clarity CLEAR Urine pH 6.0 5-9 Urine Specific [place] 1.015 L 1.016-1.022 Urine Protein NEGATIVE NEGATIVE Urine Glucose (UA) NEGATIVE NEGATIVE Urine Ketones NEGATIVE NEGATIVE Urine Nitrite NEGATIVE NEGATIVE Urine Bilirubin NEGATIVE NEGATIVE Urine Urobilinogen 0.2 < = 1.0 MG/DL Urine Leukocyte Esterase 1+ H NEGATIVE Urine RBC (Auto) 3+ H NEGATIVE Urine RBC 25-50 H /HPF Urine WBC 10-25 H /HPF Urine Crystals NONE /LPF Urine Bacteria TRACE /HPF Urine Casts NONE /LPF Urine Mucus NEGATIVE /LPF Urine Culture Indicated YES My Orders Orders - NICOLE SCOTT DO Abdomen/[place] (08/24/21 18:58) Bladder Scan (08/24/21 18:58) Catheter(Urinary) Insert & Ass 03,15 (08/24/21 19:49) Ua Culture If Indicated (08/24/21 20:25) Urine Culture (08/24/21 20:23) Rx-Trimeth/Sulfameth Ds Tab (Rx-Bactrim/ (08/24/21 20:44) Vital Signs/I&O 08/24/21 08/24/21 18:32 21:15 Temp 37.0 Pulse 90 87 Resp 18 20 B/P (MAP) 172/58 (96) 134/79 Pulse Ox 95 O2 Delivery Room Air Room Air Capillary Refill : Blood Pressure Mean: 96 Progress Note : Progress Note SUPRAPUBIC CATHETER REPLACED WITH IMMEDIATE RETURN OF 300 ML CLEAR URINE Diagnostic Imaging Comments ABDOMINAL XRAYS--PER RADIOLOGIST REPORT AT 1938 FINDINGS: Nonspecific bowel gas pattern. The lung bases and diaphragm are not included on the qripy-gi-puvd. No large stool burden. No suspicious radiopaque density. No acute osseous finding. IMPRESSION: No acute radiographic finding in the abdomen. 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 Decision time for Depature: 20:25 Referrals: SHARON EARL DO (PCP/Family) Primary Care Physician FABIANA CUELLAR MD Patient Instructions: Constipation, Adult (DC), How to Care for Your Suprapubic Urinary Catheter, Intertrigo (DC), Urinary Tract Infection, Adult (DC) Add. Discharge Instructions: TAKE MIRALAX EVERY 2 HOURS UNTIL YOU HAVE A BM, THEN TAKE ONCE A DAY EVERY DAY USE FLEET'S ENEMAS UNTIL STOOLS ARE CLEAR YOU MAY ALSO USE DULCOLAX SUPPOSITORIES FOR BM USE NYSTATIN POWDER TO RASH TWICE A DAY FOLLOW UP WITH DR. CUELLAR AND DR. EARL NEXT WEEK FOR FURTHER CARE--CALL FIRST THING FRIDAY MORNING TO SCHEDULE APPOINTMENTS All discharge instructions reviewed with patient and/or family. Voiced understanding. Scripts Sulfamethoxazole/Trimethoprim (Bactrim Ds Tablet) 1 Each Tablet 1 EACH PO BID, #20 TAB Prov: NICOLE SCOTT DO 08/24/21 Fluconazole (Diflucan) 150 Mg Tablet 150 MG PO DAILY, #5 TAB Prov: NICOLE SCOTT DO 08/24/21 Nystatin (Nystatin) 1,000,000 Unit Powder.ea. [id number] UNIT MC BID, #1 UNIT Prov: NICOLE SCOTT DO 08/24/21 NICOLE SCOTT DO Aug 24, 2021 20:22
[2021-08-24 20:30] LABS: BILIRUBIN,URINE NEGATIVE (NEGATIVE); CLARITY,URINE CLEAR; COLOR,URINE YELLOW; GLUCOSE, URINE (UA) NEGATIVE (NEGATIVE); KETONES,URINE NEGATIVE (NEGATIVE); LEUKOCYTE ESTERASE ,URINE 1+ (NEGATIVE); NITRITE,URINE NEGATIVE (NEGATIVE); PROTEIN,URINE NEGATIVE (NEGATIVE)
[2021-08-24] MEDS ORDERED: [UNRECOGNIZED DRUG - CODE] MC (20:37)
[2021-08-24] MEDS ORDERED: FLUC150T PO (20:37)
[2021-08-24 20:38] LABS: BACTERIA,URINE TRACE /HPF; RBC,URINE 25-50 /HPF
[2021-08-24] MEDS ORDERED: SULF1TAB38 PO (20:43)
[2021-08-24] MEDS ORDERED: RX-TRIMETH/SULFA. 160-800 MG (BACTRIM DS) TAB PPK#2 PO STA (20:44)
[2021-08-24 21:15] VITALS: BP 134/79
== END 2021-08-24 21:05 | disposition home or self-care (01) ==
LOC: EDUNIT# 18:23 → ER 18:25
DX: K59.00 Constipation, unspecified (principal); T83.198A Other mechanical complication of other urinary devices and implants, initial encounter; L30.4 Erythema intertrigo; N39.0 Urinary tract infection, site not specified; I10 Essential (primary) hypertension; E78.00 Pure hypercholesterolemia, unspecified; F41.9 Anxiety disorder, unspecified; F32.9 Major depressive disorder, single episode, unspecified; K21.9 Gastro-esophageal reflux disease without esophagitis; Z79.899 Other long term (current) drug therapy
CPT/HCPCS: 51702; 74018; 81000; 87088

== ENCOUNTER 2021-09-04 12:35 | Emergency (ER) | payer MEDICARE, MEDICAID ==
[~2021-09-04] VITALS: Ht 172 cm; Wt 98.0 kg
[~2021-09-04 12:35] MED LIST changes: -SERT-412; +SERT-412 PO
--- NOTE | 2021-09-04 13:11 | ED GI ---
General Chief Complaint: Catheter/Drain/Tube Problems Stated Complaint: CONSTIPATION,ABD PAIN,SUPRAPUBIC CATH CLOGGED Nursing Triage Note: PT AMB TO RM 3 PT CO OF SUPRA PUBIC CATH NOT WORKING TODAY, AND CONSTIPATION. PT HAD BM YESTERDAY Source of Information: Patient Exam Limitations: No Limitations (ACOSTA STOCKTON) History of Present Illness Date Seen by Provider: Sep 04, 2021 Time Seen by Provider: 13:06 Initial Comments Patient is a 76-year-old male who presents ED with suprapubic discomfort. Patient is a poor historian. Patient states he has had this pain potentially for several weeks. He states the pain started today. He was seen by his primary care physician today for a checkup according to patient. Patient states he is concerned that his suprapubic catheter is not draining correctly. He believes he has a UTI currently on Bactrim. Patient is on his last day of Bactrim. Was able to flush catheter here in the ED successfully. Patient reports feeling constipated last bowel movement yesterday soft. He states he has a history of constipation currently on MiraLAX. Denies any vomiting, fever, chest pain, shortness of breath, headache, dizziness, nausea, vomiting. Patient in no acute distress. (ACOSTA STOCKTON) Allergies and Home Medications Allergies Coded Allergies: Penicillins (Verified Allergy, Unknown, FROM CHILDHOOD, 05/02/20) Reacted as a child per uncoded allergy Patient Home Medication List Home Medication List Reviewed: Yes (ACOSTA STOCKTON) Acetaminophen (Tylenol Arthritis) 650 Mg Tablet.er, 650 MG PO BID PRN for PAIN- MILD (1-4), (Reported) Entered as Reported by: SENIA LUNA on 11/27/20 1218 Atenolol/Chlorthalidone (Atenolol-Chlorthalidone 50-25) 1 Each Tablet, 1 EACH PO DAILY, (Reported) Entered as Reported by: ELLIS DIXON on 02/19/19 1347 Atorvastatin Calcium (Atorvastatin Calcium) 80 Mg Tablet, 40 MG PO HS, (Reported) Entered as Reported by: ADALBERTO VILLALOBOS on 05/02/20 1332 Bupropion HCl (Bupropion Xl) 150 Mg Tab.er.24h, 150 MG PO DAILY, (Reported) Entered as Reported by: SENIA LUNA on 11/27/20 1156 Cefuroxime Axetil (Cefuroxime) 250 Mg Tablet, 250 MG PO BID Prescribed by: KAYLEY DANIEL on 08/12/21 1429 Cephalexin (Cephalexin) 500 Mg Tablet, 500 MG PO TID Prescribed by: MARIA D GARZA on 09/04/21 1445 Cyanocobalamin (Vitamin B-12) (Vitamin B-12) 500 Mcg Tablet, 1,000 MCG PO DAILY, (Reported) Entered as Reported by: SENIA LUNA on 11/27/20 1156 Famotidine (Famotidine) 40 Mg Tablet, 40 MG PO DAILY, (Reported) Entered as Reported by: ADALBERTO VILLALOBOS on 05/02/20 1332 Fluconazole (Diflucan) 150 Mg Tablet, 150 MG PO ONCE Prescribed by: ULISES YODER on 06/15/21823 Fluconazole (Diflucan) 150 Mg Tablet, 150 MG PO DAILY Prescribed by: NICOLE SCOTT on 08/24/212036 Fluticasone Propionate (Flonase Allergy Relief) 9.9 Ml [place].susp, 1 SPRAY NSEACH BID, (Reported) Entered as Reported by: SENIA LUNA on 11/27/20 1156 Lorazepam (Ativan) 0.5 Mg Tablet, 0.5 MG PO DAILY PRN for ANXIETY Prescribed by: KAYLEY DANIEL on 08/12/21 1430 Lorazepam (Ativan) 0.5 Mg Tablet, (Reported) Entered as Reported by: STEPHEN YAO on 08/21/21 0233 Magnesium Oxide (Magnesium Oxide) 420 Mg Tablet, 420 MG PO BID, (Reported) Entered as Reported by: ELLIS DIXON on 02/19/19 1347 Nystatin (Nystatin) 15 Gm Powder, 15 GM TP BID PRN for RASH Prescribed by: ULISES YODER on 06/15/21823 Nystatin (Nystatin) 1,000,000 Unit Powder.ea., 1,000,000 UNIT MC BID Prescribed by: NICOLE SCOTT on 08/24/212036 Potassium Chloride (Potassium Chloride) 20 Meq Tablet.er, 20 MEQ PO DAILY, (Reported) Entered as Reported by: ELLIS DIXON on 02/19/19 1347 Sertraline HCl (Sertraline HCl) 25 Mg Tablet, (Reported) Entered as Reported by: STEPHEN YAO on 08/21/21232 Sulfamethoxazole/Trimethoprim (Bactrim Ds Tablet) 1 Each Tablet, 1 EACH PO BID Prescribed by: NIKKI CARDOZO on 08/16/212009 Sulfamethoxazole/Trimethoprim (Bactrim 400-80 mg Tablet) 1 Each Tablet, (Reported) Entered as Reported by: STEPHEN YAO on 08/21/21232 Sulfamethoxazole/Trimethoprim (Bactrim Ds Tablet) 1 Each Tablet, 1 EACH PO BID Prescribed by: NICOLE SCOTT on 08/24/212042 Review of Systems Review of Systems Constitutional: No malaise, No weakness EENTM: No See HPI, No Mouth Pain, No Mouth Swelling Respiratory: Denies Cough, Denies Orthopnea, Denies Shortness of Air Cardiovascular: Denies Chest Pain, Denies Edema Gastrointestinal: Abdominal Pain, Constipated; Denies Diarrhea, Denies Nausea, Denies Rectal Bleeding, Denies Vomiting Genitourinary: Denies Burning, Denies Drainage, Denies Frequency; Other (Catheter malfunction) Musculoskeletal: No back pain, No joint pain Skin: No see HPI, No change in color, No change in hair/nails Psychiatric/Neurological: Denies Anxiety, Denies Depressed Endocrine: Denies Excessive Sweating (ACOSTA STOCKTON) All Other Systems Reviewed Negative Unless Noted: Yes (ACOSTA STOCKTON) Past Klbctfn-Eljvde-Tyroul Hx Patient Social History Tobacco Use?: No Substance use?: No Alcohol Use?: No Pt feels they are or have been: No (ACOSTA STOCKTON) Immunizations Up To Date Tetanus Booster (TDap): Unknown First/Initial COVID19 Vaccinat: NOV 2020 Second COVID19 Vaccination Yg: DECEMBER 2020 Third COVID19 Vaccination Date: 08/24/21 (ACOSTA STOCKTON) Seasonal Allergies Seasonal Allergies: Yes (ACOSTA STOCKTON) Past Medical History Surgery/Hospitalization HX: NO RECENT MEDICAL HX Surgeries: Yes (lesion from neck, suprapubic cath, foot) Bladder Surgery Respiratory: No Cardiac: Yes High Cholesterol, Hypertension Neurological: Yes (VERY POOR MEMORY) Reproductive Disorders: No Sexually Transmitted Disease: No HIV/AIDS: No Genitourinary: Yes (suprapubic catheter) Prostate Problems, Neurogenic Bladder Gastrointestinal: Yes Gastroesophageal Reflux, Chronic Constipation, Hemorrhoids, Polyps Musculoskeletal: No Endocrine: No HEENT: Yes (GLASSES) Double Vision Loss of Vision: Denies Hearing Impairment: Hard of Hearing, Bilateral Hearing Aide Cancer: Yes Skin Did You Recieve Any Treatments: Yes What Type of Treatment Did You: Surgical Intervention Psychosocial: Yes Anxiety, Depression Integumentary: Yes (skin ca; CANDIDAL INTERTRIGO) Blood Disorders: No Adverse Reaction/Blood Tranf: No (N/A) (ACOSTA STOCKTON) Family Medical History No Pertinent Family Hx PAST SURGICAL HISTORY: -SUPRAPUBIC CATHETER PLACEMENT FOR NEUROGENIC BLADDER AND BLADDER OUTLET OBSTRUCTION (ACOSTA STOCKTON) Physical Exam Vital Signs Vital Signs - First Documented 09/04/21 09/04/21 12:45 14:56 Temp 36.7 Pulse 84 Resp 18 B/P (MAP) 162/78 (106) Pulse Ox 98 O2 Delivery Room Air (ULISES STEELE MD) Vital Signs Capillary Refill : Less Than 3 Seconds (ACOSTA STOCKTON) Height/Weight/BMI Height: 5'8.00" Weight: 155lbs. 0.0oz. 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, no motor/sensory deficits, alert, normal mood/affect, oriented x 3 (ACOSTA STOCKTON) Progress/Results/Core Measures Results/Orders Lab Results Laboratory Tests Test 09/04/21 12:55 Range/Units Urine Color YELLOW Urine Clarity CLOUDY Urine pH 6.0 5-9 Urine Specific [place] 1.020 1.016-1.022 Urine Protein TRACE H NEGATIVE Urine Glucose (UA) NEGATIVE NEGATIVE Urine Ketones NEGATIVE NEGATIVE Urine Nitrite POSITIVE H NEGATIVE Urine Bilirubin NEGATIVE NEGATIVE Urine Urobilinogen 0.2 < = 1.0 MG/DL Urine Leukocyte Esterase 3+ H NEGATIVE Urine RBC (Auto) 3+ H NEGATIVE Urine RBC 5-10 H /HPF Urine WBC >100 H /HPF Urine Crystals NONE /LPF Urine Bacteria LARGE H /HPF Urine Casts NONE /LPF Urine Mucus NEGATIVE /LPF Urine Culture Indicated YES (ULISES STEELE MD) Micro Results Microbiology 09/04/21 Urine Culture - Preliminary, Resulted Gram Negative [place] (ULISES STEELE MD) Vital Signs/I&O 09/04/21 09/04/21 12:45 14:56 Temp 36.7 36.0 Pulse 84 72 Resp 18 20 B/P (MAP) 162/78 (106) 149/97 Pulse Ox 98 99 O2 Delivery Room Air (ULISES STEELE MD) Blood Pressure Mean: 106 Departure Communication (Admissions) Patient is a 76-year-old male who presents to the ED for suprapubic catheter malfunction. Concerning for sediment buildup. Successful removal of 20 FR. catheter here in the ED. Successful draining. Urinalysis concerning for infection. Recently started on Bactrim. Concerning that patient symptoms are secondary to UTI. Does have suprapubic pressure. Abdominal x-ray negative for acute abnormality such as obstruction. Patient has taken cephalosporins in the past. Will discharge with Keflex. He is afebrile and in no acute distress. Recommend to be discharged. Strongly recommend follow-up with your PCP in 2 to 3 days for reevaluation. If worsening symptoms return back to ED. No change in mental status, vomiting, chest pain, cough. (ACOSTA STOCKTON) Impression Primary Impression: UTI (urinary tract infection) Disposition: 01 HOME, SELF-CARE Condition: Improved Departure-Patient Inst. Decision time for Depature: 14:44 (ACOSTA STOCKTON) Referrals: SHARON EARL DO (PCP/Family) Primary Care Physician Patient Instructions: Monk Catheter Add. Discharge Instructions: Need to follow-up with your PCP in 2 to 3 days for reevaluation. If any rash, difficulty breathing while taking Keflex recommend stopping and return back to the ED. All discharge instructions reviewed with patient and/or family. Voiced understanding. Scripts Cephalexin (Cephalexin) 500 Mg Tablet 500 MG PO TID for 10 Days, #30 TAB Prov: ACOSTA STOCKTON 09/04/21 ATTENDING PHYSICIAN NOTE: I was physically present as attending physician in the emergency department during the care of this patient, but I was not directly involved in the decision making or delivery of care for this patient. (ULISES STEELE MD) ACOSTA STOCKTON Sep 04, 2021 13:11 ULISES STEELE MD Sep 06, 2021 05:17
[2021-09-04 13:27] LABS: BILIRUBIN,URINE NEGATIVE (NEGATIVE); CLARITY,URINE CLOUDY; COLOR,URINE YELLOW; GLUCOSE, URINE (UA) NEGATIVE (NEGATIVE); KETONES,URINE NEGATIVE (NEGATIVE); LEUKOCYTE ESTERASE ,URINE 3+ (NEGATIVE); NITRITE,URINE POSITIVE (NEGATIVE); PROTEIN,URINE TRACE (NEGATIVE)
[2021-09-04 13:45] LABS: BACTERIA,URINE LARGE /HPF; WBC,URINE >100 /HPF
--- NOTE | 2021-09-04 14:10 | Diagnostic Imaging Report ---
INDICATION: Constipation and nonfunctioning suprapubic catheter. TIME OF EXAM: 01:51 p.m. FINDINGS: The bowel gas pattern is nonobstructed. No free air is seen. No pathologic calcifications are identified. IMPRESSION: No acute feature detected. Dictated by: Dictated on workstation # [id number]
[2021-09-04] MEDS ORDERED: CEPH500T PO (14:45)
[2021-09-04 14:56] VITALS: BP 149/97
[2021-09-07] MEDS ORDERED: AMOX-358 PO (12:09)
== END 2021-09-04 14:56 | disposition home or self-care (01) ==
LOC: EDUNIT# 12:35 → ER 12:37
DX: N39.0 Urinary tract infection, site not specified (principal); I10 Essential (primary) hypertension; K21.9 Gastro-esophageal reflux disease without esophagitis; F41.9 Anxiety disorder, unspecified; F32.9 Major depressive disorder, single episode, unspecified; E78.00 Pure hypercholesterolemia, unspecified; Z79.899 Other long term (current) drug therapy
CPT/HCPCS: 74018; 81000; 87077; 87088; 87186

== ENCOUNTER 2021-09-05 21:28 | Inpatient (IN) | payer MEDICARE, MEDICAID ==
[~2021-09-05] VITALS: Ht 172.7 cm; Wt 70.3 kg
[~2021-09-05 21:28] MED LIST changes: +CEPH500T PO
[2021-09-05 22:24] LABS: BASOPHILS # (AUTO) 0.2 10^3/uL (0.0-0.1); BASOPHILS % (AUTO) 0 % (0-10); EOSINOPHILS % (AUTO) 0 % (0-10); HEMATOCRIT 36 % (40-54); HEMOGLOBIN 11.8 g/dL (13.3-17.7); LYMPHOCYTES # (AUTO) 0.7 10^3/uL (1.0-4.0); LYMPHOCYTES % (AUTO) 2 % (12-44); MEAN CORPUSCULAR HEMOGLOBIN 29 pg (25-34); MEAN CORPUSCULAR HGB CONC 33 g/dL (32-36); MEAN CORPUSCULAR VOLUME 88 fL (80-99); MEAN PLATELET VOLUME 9.8 fL (9.0-12.2); MONOCYTES # (AUTO) 2.4 10^3/uL (0.0-1.0); MONOCYTES % (AUTO) 6 % (0-12); NEUTROPHILS % (AUTO) 90 % (42-75); PLATELET COUNT 314 10^3/uL (130-400)
[2021-09-05 22:31] LABS: WHITE BLOOD COUNT 38.8 10^3/uL (4.3-11.0)
[2021-09-05 22:34] LABS: POTASSIUM 4.8 MMOL/L (3.6-5.0)
[2021-09-05 22:40] LABS: CREATININE SERUM 2.28 MG/DL (0.60-1.30)
[2021-09-05 22:45] LABS: LYMPHOCYTES % (MANUAL) 2 %; MONOCYTES % (MANUAL) 5 %; NEUTROPHILS % (MANUAL) 93 %; RBC MORPH NORMAL
[2021-09-05 22:52] LABS: MAGNESIUM 1.7 MG/DL (1.6-2.4)
[2021-09-05 22:56] LABS: ABSOLUTE RETIC # 51 10e9/uL (24-90); BASOPHILS # (AUTO) 0.1 10^3/uL (0.0-0.1); BASOPHILS % (AUTO) 0 % (0-10); EOSINOPHILS % (AUTO) 0 % (0-10); HEMATOCRIT 36 % (40-54); HEMOGLOBIN 11.9 g/dL (13.3-17.7); LYMPHOCYTES # (AUTO) 0.8 10^3/uL (1.0-4.0); LYMPHOCYTES % (AUTO) 2 % (12-44); MEAN CORPUSCULAR HEMOGLOBIN 29 pg (25-34); MEAN CORPUSCULAR HGB CONC 33 g/dL (32-36); MEAN CORPUSCULAR VOLUME 88 fL (80-99); MEAN PLATELET VOLUME 9.4 fL (9.0-12.2); MONOCYTES # (AUTO) 2.2 10^3/uL (0.0-1.0); MONOCYTES % (AUTO) 6 % (0-12); NEUTROPHILS # (AUTO) 33.8 10^3/uL (1.8-7.8); NEUTROPHILS % (AUTO) 91 % (42-75); PLATELET COUNT 322 10^3/uL (130-400); RETICULOCYTE % 1.26 % (0.50-2.40)
[2021-09-05 23:07] LABS: WHITE BLOOD COUNT 37.3 10^3/uL (4.3-11.0)
[2021-09-05] MEDS ORDERED: MEROPENEM 500 MG in NS (IVPB) 100 ML IV ONE (23:15)
[2021-09-05 23:17] LABS: BAND NEUTROPHILS 2 %; BILIRUBIN,URINE NEGATIVE (NEGATIVE); CLARITY,URINE SL CLOUDY; COLOR,URINE YELLOW; GLUCOSE, URINE (UA) NEGATIVE (NEGATIVE); KETONES,URINE NEGATIVE (NEGATIVE); LEUKOCYTE ESTERASE ,URINE 3+ (NEGATIVE); LYMPHOCYTES % (MANUAL) 3 %; MICROCYTOSIS SLIGHT; MONOCYTES % (MANUAL) 6 %; NEUTROPHILS % (MANUAL) 89 %; NITRITE,URINE NEGATIVE (NEGATIVE); PH,URINE 6.5 (5-9); PROTEIN,URINE TRACE (NEGATIVE)
[2021-09-05] MEDS ORDERED: NS IV 1000 ML 1,000 ML IV SCH (23:30)
[2021-09-05 23:36] LABS: BACTERIA,URINE MODERATE /HPF; CALCIUM OXALATE CRYSTALS,UR MODERATE /LPF; HYALINE CASTS, URINE 0-2 /LPF; SQUAMOUS EPITHELIAL CELL,UR RARE /HPF; WBC,URINE 50-100 /HPF
--- NOTE | 2021-09-05 23:56 | Diagnostic Imaging Report ---
EXAM: CHEST 1 VIEW, AP/PA ONLY INDICATION: Sepsis. COMPARISON: 06/15/2021. FINDINGS: Normal heart size and central pulmonary vascularity. No focal pulmonary opacity. No pleural effusion or pneumothorax. No acute osseous findings. IMPRESSION: No acute cardiopulmonary findings. Dictated by: Dictated on workstation # [id number]
--- NOTE | 2021-09-06 00:11 | ED General ---
General Chief Complaint: General Problems/Pain Stated Complaint: FALL Nursing Triage Note: Pt reports progressive weakness for approximately one week, stating it intensified today when he missed sitting down in a chair and fell. He reports landing on his bottom. He denies pain other than elbows from crawling on floor to find phone. He reports having been "fighting a UTI" for "awhile now". Source of Information: Patient Exam Limitations: No Limitations History of Present Illness Date Seen by Provider: Sep 05, 2021 Time Seen by Provider: 21:32 Initial Comments This is 76-year-old gentleman presents to the emergency room via EMS after having a fall in his home. He reports being wobbly as he moved to sit down in his recliner. He then missed the recliner and fell down into an end table. He has some irritation on his elbows but denies any significant injury. He did not hit his head or neck and has no significant pain at this time. He was recently seen in the emergency room on multiple occasions. He was most recently seen yesterday for treatment of urinary tract infection. Culture results are still pending. Patient states he does not really feel ill, but he does feel a little off balance when walking. He has a suprapubic catheter. He states he has not been drinking well. He denies fever, vomiting, diarrhea, cough, or shortness of breath. Allergies and Home Medications Allergies Coded Allergies: Penicillins (Verified Allergy, Unknown, FROM CHILDHOOD, 05/02/20) Reacted as a child per uncoded allergy Patient Home Medication List Home Medication List Reviewed: Yes Acetaminophen (Tylenol Arthritis) 650 Mg Tablet.er, 650 MG PO BID PRN for PAIN- MILD (1-4), (Reported) Entered as Reported by: SENIA LUNA on 11/27/20 1218 Atenolol/Chlorthalidone (Atenolol-Chlorthalidone 50-25) 1 Each Tablet, 1 EACH PO DAILY, (Reported) Entered as Reported by: ELLIS DIXON on 02/19/19 1347 Atorvastatin Calcium (Atorvastatin Calcium) 80 Mg Tablet, 40 MG PO HS, (Reported) Entered as Reported by: ADALBERTO VILLALOBOS on 05/02/20 1332 Bupropion HCl (Bupropion Xl) 150 Mg Tab.er.24h, 150 MG PO DAILY, (Reported) Entered as Reported by: SENIA LUNA on 11/27/20 1156 Cefuroxime Axetil (Cefuroxime) 250 Mg Tablet, 250 MG PO BID Prescribed by: KAYLEY DANIEL on 08/12/21 1429 Cephalexin (Cephalexin) 500 Mg Tablet, 500 MG PO TID Prescribed by: MARIA D GARZA on 09/04/21 1445 Cyanocobalamin (Vitamin B-12) (Vitamin B-12) 500 Mcg Tablet, 1,000 MCG PO DAILY, (Reported) Entered as Reported by: SENIA LUNA on 11/27/20 1156 Famotidine (Famotidine) 40 Mg Tablet, 40 MG PO DAILY, (Reported) Entered as Reported by: ADALBERTO VILLALOBOS on 05/02/20 1332 Fluconazole (Diflucan) 150 Mg Tablet, 150 MG PO ONCE Prescribed by: ULISES YODER on 06/15/21823 Fluconazole (Diflucan) 150 Mg Tablet, 150 MG PO DAILY Prescribed by: NICOLE SCOTT on 08/24/212036 Fluticasone Propionate (Flonase Allergy Relief) 9.9 Ml [place].susp, 1 SPRAY NSEACH BID, (Reported) Entered as Reported by: SENIA LUNA on 11/27/20 1156 Lorazepam (Ativan) 0.5 Mg Tablet, 0.5 MG PO DAILY PRN for ANXIETY Prescribed by: KAYLEY DANIEL on 08/12/21 1430 Lorazepam (Ativan) 0.5 Mg Tablet, (Reported) Entered as Reported by: STEPHEN YAO on 08/21/21 0233 Magnesium Oxide (Magnesium Oxide) 420 Mg Tablet, 420 MG PO BID, (Reported) Entered as Reported by: ELLIS DIXON on 02/19/19 1347 Nystatin (Nystatin) 15 Gm Powder, 15 GM TP BID PRN for RASH Prescribed by: ULISES YODER on 06/15/21823 Nystatin (Nystatin) 1,000,000 Unit Powder.ea., 1,000,000 UNIT MC BID Prescribed by: NICOLE SCOTT on 08/24/212036 Potassium Chloride (Potassium Chloride) 20 Meq Tablet.er, 20 MEQ PO DAILY, (Reported) Entered as Reported by: ELLIS DIXON on 02/19/19 1347 Sertraline HCl (Sertraline HCl) 25 Mg Tablet, (Reported) Entered as Reported by: STEPHEN YAO on 08/21/21232 Sulfamethoxazole/Trimethoprim (Bactrim Ds Tablet) 1 Each Tablet, 1 EACH PO BID Prescribed by: NIKKI CARDOZO on 08/16/212009 Sulfamethoxazole/Trimethoprim (Bactrim 400-80 mg Tablet) 1 Each Tablet, (Reported) Entered as Reported by: STEPHEN YAO on 08/21/21232 Sulfamethoxazole/Trimethoprim (Bactrim Ds Tablet) 1 Each Tablet, 1 EACH PO BID Prescribed by: NICOLE SCOTT on 08/24/212042 Review of Systems Review of Systems Constitutional: see HPI, weakness EENTM: no symptoms reported Respiratory: no symptoms reported Cardiovascular: no symptoms reported Genitourinary: see HPI Musculoskeletal: see HPI Skin: see HPI Psychiatric/Neurological: See HPI Hematologic/Lymphatic: No Symptoms Reported Immunological/Allergic: no symptoms reported Past Oqhtkjl-Afflpp-Wxrzzm Hx Patient Social History Tobacco Use?: No Smoking Status: Never a Smoker Smokeless Tobacco Frequency: Never a User Use of E-Cig and/or Vaping dev: No Use of E-Cig and/or Vaping Anup: Never a User Substance use?: No Alcohol Use?: No Pt feels they are or have been: No Immunizations Up To Date Tetanus Booster (TDap): Unknown Influenza Vaccine Up-to-Date: Yes; Up-to-Date First/Initial COVID19 Vaccinat: NOV 2020 Second COVID19 Vaccination Yg: DECEMBER 2020 Third COVID19 Vaccination Date: 08/24/21 COVID19 Vaccine Stock Chaser: Roger Seasonal Allergies Seasonal Allergies: Yes Past Medical History Surgery/Hospitalization HX: NO RECENT MEDICAL HX Surgeries: Yes (lesion from neck, suprapubic cath, foot) Bladder Surgery Respiratory: No Cardiac: Yes High Cholesterol, Hypertension Neurological: Yes (VERY POOR MEMORY) Reproductive Disorders: No Sexually Transmitted Disease: No HIV/AIDS: No Genitourinary: Yes (suprapubic catheter) Prostate Problems, Neurogenic Bladder Gastrointestinal: Yes Gastroesophageal Reflux, Chronic Constipation, Hemorrhoids, Polyps Musculoskeletal: No Endocrine: No HEENT: Yes (GLASSES) Double Vision Loss of Vision: Denies Hearing Impairment: Hard of Hearing, Bilateral Hearing Aide Cancer: Yes Skin Did You Recieve Any Treatments: Yes What Type of Treatment Did You: Surgical Intervention Psychosocial: Yes Anxiety, Depression Integumentary: Yes (skin ca; CANDIDAL INTERTRIGO) Blood Disorders: No Adverse Reaction/Blood Tranf: No (N/A) Family Medical History No Pertinent Family Hx PAST SURGICAL HISTORY: -SUPRAPUBIC CATHETER PLACEMENT FOR NEUROGENIC BLADDER AND BLADDER OUTLET OBSTRUCTION Physical Exam Vital Signs Vital Signs - First Documented 09/05/21 21:30 Temp 36.7 Pulse 100 Resp 20 B/P (MAP) 119/74 (89) Pulse Ox 96 O2 Delivery Room Air Capillary Refill : Height, Weight, BMI Height: 5'8.00" Weight: 155lbs. 0.0oz. 70.064006lw; 33.00 BMI Method:Stated General Appearance: No Apparent Distress, WD/WN HEENT: PERRL/EOMI, Normal ENT Inspection, Other (Oropharynx somewhat dry) Neck: Normal Inspection; No JVD Respiratory: Lungs Clear, Normal Breath Sounds, No Accessory Muscle Use, No Re spiratory Distress Cardiovascular: Regular Rate, Rhythm, No Edema, No Murmur, Normal Peripheral Pulses Gastrointestinal: Normal Bowel Sounds, Non Tender, Soft Extremity: Normal Inspection, Non Tender, No Pedal Edema Neurologic/Psychiatric: Alert, Oriented x3, No Motor/Sensory Deficits, Normal Mood/Affect, comparison shopper II-XII Norm as Tested Skin: Normal Color, Warm/Dry Focused Exam Lactate Level 09/05/21 23:20: Lactic Acid Level 1.11 Lactic Acid Level Laboratory Tests Test 09/05/21 23:20 Lactic Acid Level 1.11 MMOL/L (0.50-2.00) Progress/Results/Core Measures Suspected Sepsis SIRS Temperature: Pulse: 100 Respiratory Rate: 20 Laboratory Tests 09/05/21 22:17: White Blood Count 38.8*H 09/05/21 22:50: White Blood Count 37.3*H Blood Pressure 119 /74 Mean: 89 09/05/21 23:20: Lactic Acid Level 1.11 Laboratory Tests 09/05/21 22:17: Creatinine 2.28H, Platelet Count 314 09/05/21 22:50: Platelet Count 322 Results/Orders Lab Results Laboratory Tests Test 09/05/21 22:17 09/05/21 22:50 09/05/21 23:20 Range/Units White Blood Count 38.8 *H 37.3 *H 4.3-11.0 10^3/uL Red Blood Count 4.04 L 4.07 L 4.30-5.52 10^6/uL Hemoglobin 11.8 L 11.9 L 13.3-17.7 g/dL Hematocrit 36 L 36 L 40-54 % Mean Corpuscular Volume 88 88 80-99 fL Mean Corpuscular Hemoglobin 29 29 25-34 pg Mean Corpuscular Hemoglobin Concent 33 33 32-36 g/dL Red Cell Distribution Width 12.8 12.7 10.0-14.5 % Platelet Count 314 322 130-400 10^3/uL Mean Platelet Volume 9.8 9.4 9.0-12.2 fL Immature Granulocyte % (Auto) 1 1 % Neutrophils (%) (Auto) 90 H 91 H 42-75 % Lymphocytes (%) (Auto) 2 L 2 L 12-44 % Monocytes (%) (Auto) 6 6 0-12 % Eosinophils (%) (Auto) 0 0 0-10 % Basophils (%) (Auto) 0 0 0-10 % Neutrophils # (Auto) 35.0 H 33.8 H 1.8-7.8 10^3/uL Lymphocytes # (Auto) 0.7 L 0.8 L 1.0-4.0 10^3/uL Monocytes # (Auto) 2.4 H 2.2 H 0.0-1.0 10^3/uL Eosinophils # (Auto) 0.0 0.0 0.0-0.3 10^3/uL Basophils # (Auto) 0.2 H 0.1 0.0-0.1 10^3/uL Immature Granulocyte # (Auto) 0.5 H 0.4 H 0.0-0.1 10^3/uL Neutrophils % (Manual) 93 89 % Lymphocytes % (Manual) 2 3 % Monocytes % (Manual) 5 6 % Blood Morphology Comment NORMAL Sodium Level 130 L 135-145 MMOL/L Potassium Level 4.8 3.6-5.0 MMOL/L Chloride Level 101 98-107 MMOL/L Carbon Dioxide Level 16 L 21-32 MMOL/L Anion Gap 13 5-14 MMOL/L Blood Urea Nitrogen 20 H 7-18 MG/DL Creatinine 2.28 H 0.60-1.30 MG/DL Estimat Glomerular Filtration Rate 28 BUN/Creatinine Ratio 9 Glucose Level 127 H 70-105 MG/DL Calcium Level 9.0 8.5-10.1 MG/DL Magnesium Level 1.7 1.6-2.4 MG/DL C-Reactive Protein High Sensitivity 8.78 H 0.00-0.50 MG/DL Procalcitonin 0.43 H <0.10 NG/ML Band Neutrophils 2 % Microcytosis SLIGHT Absolute Reticulocyte Count 51 24-90 10e9/uL Percent Reticulocyte Count 1.26 0.50-2.40 % Urine Color YELLOW Urine Clarity SL CLOUDY Urine pH 6.5 5-9 Urine Specific [place] 1.020 1.016-1.022 Urine Protein TRACE H NEGATIVE Urine Glucose (UA) NEGATIVE NEGATIVE Urine Ketones NEGATIVE NEGATIVE Urine Nitrite NEGATIVE NEGATIVE Urine Bilirubin NEGATIVE NEGATIVE Urine Urobilinogen 0.2 < = 1.0 MG/DL Urine Leukocyte Esterase 3+ H NEGATIVE Urine RBC (Auto) 2+ H NEGATIVE Urine RBC 5-10 H /HPF Urine WBC 50-100 H /HPF Urine Squamous Epithelial Cells RARE /HPF Urine Crystals PRESENT H /LPF Urine Calcium Oxalate Crystals MODERATE H /LPF Urine Bacteria MODERATE H /HPF Urine Casts PRESENT /LPF Urine Hyaline Casts 0-2 H /LPF Urine Mucus SMALL H /LPF Urine Culture Indicated YES Lactic Acid Level 1.11 0.50-2.00 MMOL/L My Orders Orders - ULISES STEELE MD Basic Metabolic Panel (09/05/21 21:32) Cbc With Automated Diff (09/05/21 21:32) Hs C Reactive Protein (09/05/21 21:32) Manual Differential (09/05/21 22:17) Cbc With Automated Diff (09/05/21 22:34) Smear For Path Review (09/05/21 22:35) Magnesium (09/05/21 22:36) Procalcitonin (Pct) (09/05/21 22:36) Ua Culture If Indicated (09/05/21 22:36) Blood Culture (09/05/21 23:08) Sputum Culture (09/05/21 23:08) Chest 1 View, Ap/Pa Only (09/05/21 23:08) Remove Rings In Anticipation O (09/05/21 23:08) Lactic Acid Analyzer (09/05/21 23:08) Meropenem (Merrem 500 Mg) (09/05/21 23:15) Ed Iv/Invasive Line Start (09/05/21 23:30) Ns Iv 1000 Ml (Sodium Chloride 0.9%) (09/05/21 23:30) Urine Culture (09/05/21 22:50) Medications Given in ED Current Medications Medications Dose Ordered Sig/Julee Route Start Time Stop Time Status Last Admin Dose Admin Meropenem 500 mg/ Sodium Chloride 100 ml @ 200 mls/hr ONCE ONCE IV 09/05/21 23:15 09/05/21 23:44 DC 09/06/21 00:04 200 MLS/HR Vital Signs/I&O 09/05/21 21:30 Temp 36.7 Pulse 100 Resp 20 B/P (MAP) 119/74 (89) Pulse Ox 96 O2 Delivery Room Air Capillary Refill : Blood Pressure Mean: 89 Progress Note : Progress Note Patient was found to have acute kidney injury. IV hydration with normal saline was initiated. Patient has a penicillin allergy and urine culture results from yesterday are not yet available. Empiric treatment was provided with meropenem. Blood cultures and lactic acid were obtained. Interestingly, patient had a markedly elevated WBC. A repeat CBC was obtained to confirm. Peripheral smear for pathology review was ordered. Diagnostic Imaging Diagonstic Imaging: Xray Plain Films/CT/US/NM/MRI: chest Comments Chest x-ray reviewed by me and report reviewed. See report below: NAME: MARGARET LI [facility] REC#: [id number] PT STATUS: REG ER : 1945 PHYSICIAN: ULISES STEELE MD ADMIT DATE: 09/05/21/ER Signed Date of Exam:09/05/21 CHEST 1 VIEW, AP/PA ONLY EXAM: CHEST 1 VIEW, AP/PA ONLY INDICATION: Sepsis. COMPARISON: 06/15/2021. FINDINGS: Normal heart size and central pulmonary vascularity. No focal pulmonary opacity. No pleural effusion or pneumothorax. No acute osseous findings. IMPRESSION: No acute cardiopulmonary findings. Dictated by: Dictated on workstation # [id number] Dict: 09/05/21 2349 Trans: 09/05/21 2955 [facility] [id number] Interpreted by: MANNY MAYORGA MD Electronically signed by: MANNY MAYORGA MD 09/05/21 2569 Departure Impression Primary Impression: Acute kidney injury Additional Impressions: Urinary tract infection Qualified Codes: N39.0 - Urinary tract infection, site not specified Leukocytosis Qualified Codes: D72.829 - Elevated white blood cell count, unspecified Disposition: ADMITTED INPATIENT Condition: Improved Admissions Decision to Admit Reason: Admit from ER (General) Decision to Admit/Date: Sep 05, 2021 Time/Decision to Admit Time: 23:05 Departure-Patient Inst. Referrals: SHARON EARL DO (PCP/Family) Primary Care Physician Copy Copies To 1: SHARON EARL JOSHUA T MD Sep 06, 2021 00:11
[2021-09-06 01:30] VITALS: BP 130/70
[2021-09-06] MEDS ORDERED: NS IV 1000 ML 1,000 ML IV STA (02:21)
[2021-09-06] MEDS ORDERED: ONDANSETRON 4 MG/2 ML (SDV) Z0FRAN IVP PRN (02:30)
[2021-09-06 04:00] VITALS: BP 133/74
[2021-09-06 08:00] VITALS: BP 129/62
[2021-09-06] MEDS ORDERED: MEROPENEM 500 MG/NS 100 ML IVPB IV SCH ×2 (08:00)
[2021-09-06] MEDS: NS IV 1000 ML 1,000 ML IV SCH ×4 (08:26→23:05)
[2021-09-06 12:00] VITALS: BP 125/70
[2021-09-06] MEDS ORDERED: BUPR150T14 PO (12:08)
[2021-09-06] MEDS ORDERED: FAMO40TA6 PO (12:08)
[2021-09-06] MEDS ORDERED: ALPR0.254 PO (12:08)
[2021-09-06] MEDS ORDERED: BUPR150T24 PO ×2 (12:08→12:10)
[2021-09-06] MEDS ORDERED: FERR325T18 PO (12:08)
[2021-09-06] MEDS ORDERED: CEPH500C PO (12:08)
[2021-09-06] MEDS ORDERED: DONE10TA41 PO (12:08)
[2021-09-06] MEDS ORDERED: ATEN25TA PO (12:08)
[2021-09-06] MEDS ORDERED: CHOL10007 PO (12:08)
[2021-09-06] MEDS ORDERED: ZINC50TA58 PO (12:09)
[2021-09-06] MEDS ORDERED: ATOR80TA76 PO (12:12)
[2021-09-06] MEDS ORDERED: cefTRIAXone 2,000 MG/NS 50 ML IVPB IV SCH ×2 (14:00)
[2021-09-06 15:30] VITALS: BP 145/66
--- NOTE | 2021-09-06 19:27 | History & Physical-Hospitalist ---
History of Present Illness HPI/Chief Complaint Mihir Hitchcock is a 76 year old male with PMH HTN, HLD, dementia, GERD, suprapubic catheter, who presented after a fall at home. He reports feeling weak. He was seen in the ER the prior day and was given an antibiotic for a UTI. He reports dysuria. He denies fevers and chills. He denies chest pain. He denies shortness of breath and cough. He denies nausea, vomiting, diarrhea, and abdominal pain. He has a history of multi-drug resistant UTI. Source: patient Exam Limitations: no limitations Date Seen 09/06/21 Time Seen by a Provider: 09:50 Attending Physician Zach Calvin MD PCP Ben Enriquez DO Referring Physician Date of Admission Sep 06, 2021 at 00:09 Home Medications & Allergies Home Medications Reviewed patient Home Medication Reconciliation performed by pharmacy medication reconciliations quality assurance lab technician and/or nursing. Patients Allergies have been reviewed. Allergies Allergies Coded Allergies Penicillins (Verified Allergy, Unknown, FROM CHILDHOOD, 05/02/20) Reacted as a child per uncoded allergy Past Mgrvvyq-Dabuvl-Ncfcqa Hx Patient Social History Tobacco Use?: No Smoking Status: Never a Smoker Smokeless Tobacco Frequency: Never a User Use of E-Cig and/or Vaping dev: No Use of E-Cig and/or Vaping Anup: Never a User Substance use?: No Alcohol Use?: No Pt feels they are or have been: No Immunizations Up To Date Date of Influenza Vaccine: Jul 20, 2021 First/Initial COVID19 Vaccinat: NOV 2020 Second COVID19 Vaccination Yg: DECEMBER 2020 Tetanus Booster (TDap): More Than 5 Years Hepatitis A: No Hepatitis B: No Date of Pneumonia Vaccine: Jun 23, 2012 Seasonal Allergies Seasonal Allergies: Yes Current Status Advance Directives: No Communicates: Verbally Primary Language: Tamaz[place] Preferred Spoken Language: Tamazight Is interpretation needed?: No Sensory deficits: Hearing impairment Past Medical History Surgeries: Bladder Surgery High Cholesterol, Hypertension Sexually Transmitted Disease: No HIV/AIDS: No Prostate Problems, Neurogenic Bladder Gastroesophageal Reflux, Chronic Constipation, Hemorrhoids, Polyps Double Vision Loss of Vision: Denies Hearing Impairment: Hard of Hearing, Bilateral Hearing Aide Skin Did You Recieve Any Treatments: Yes What Type of Treatment Did You: Surgical Intervention Anxiety, Depression Blood Disorders: No Adverse Reaction/Blood Tranf: No (N/A) Family Medical History No Pertinent Family Hx PAST SURGICAL HISTORY: -SUPRAPUBIC CATHETER PLACEMENT FOR NEUROGENIC BLADDER AND BLADDER OUTLET OBSTRUCTION Review of Systems Constitutional: weakness EENTM: no symptoms reported Respiratory: no symptoms reported Cardiovascular: no symptoms reported Gastrointestinal: no symptoms reported Genitourinary: dysuria Musculoskeletal: no symptoms reported Skin: no symptoms reported Psychiatric/Neurological: No Symptoms Reported Physical Exam Physical Exam Vital Signs Vital Signs - First Documented 09/05/21 21:30 Temp 36.7 Pulse 100 Resp 20 B/P (MAP) 119/74 (89) Pulse Ox 96 O2 Delivery Room Air Capillary Refill : Height, Weight, BMI Height: 5'8.00" Weight: 155lbs. 0.0oz. 70.811456xp; 33.02 BMI Method:Stated General Appearance: No Apparent Distress, WD/WN HEENT: PERRL/EOMI, Pharynx Normal Neck: Normal Inspection, Supple Respiratory: Lungs Clear, Normal Breath Sounds, No Respiratory Distress Cardiovascular: Regular Rate, Rhythm, No Edema, No Murmur Gastrointestinal: Normal Bowel Sounds, Non Tender, Soft Extremity: Normal Inspection, Non Tender, No Pedal Edema Neurologic/Psychiatric: Alert, Oriented x3, Motor Weakness Skin: Normal Color, Warm/Dry Results Results/Procedures Labs Laboratory Tests 09/05/21 22:17 09/05/21 22:50 Patient resulted labs reviewed. Imaging: Reviewed Imaging Report Assessment/Plan Admission Diagnosis Severe sepsis due to UTI Admission Status: Inpatient Order (span 2 midnights) Reason for Inpatient Admission: IV antibiotics Assessment and Plan Severe sepsis UTI CHANDRAKANT on CKD SIRS+ with leukocytosis and tachycardia UA consistent with UTI Urine culture with E coli Started on Merrem Transition to Rocephin Cr >2 IV fluids Debility PT/OT HTN HLD GERD Anxiety Depression Dementia Continue home meds DVT prophylaxis: Lovenox Diagnosis/Problems Diagnosis/Problems (1) Severe sepsis Status: Acute (2) UTI (urinary tract infection) Status: Acute Qualifiers: Urinary tract infection type: acute cystitis Hematuria presence: with hematuria Qualified Codes: N30.01 - Acute cystitis with hematuria (3) Acute kidney injury superimposed on chronic kidney disease Status: Acute ZACH CALVIN MD Sep 06, 2021 19:27
[2021-09-06] MEDS ORDERED: ENOXAPARIN 40 MG/0.4 ML (LOVENOX) SYR SQ SCH (19:30)
[2021-09-06] MEDS ORDERED: CATHETER FLUSH 10 ML SYR IV PRN (19:45)
[2021-09-06 20:00] VITALS: BP 161/69
[2021-09-06] MEDS: ALPRAZolam 0.25 MG (XANAX) TAB PO SCH (20:24)
[2021-09-06] MEDS ORDERED: DONEPEZIL 10 MG (ARICEPT) TAB PO SCH (21:00)
[2021-09-07] VITALS: BP 129/62
[2021-09-07 04:43] VITALS: BP 147/64
[2021-09-07 06:43] LABS: BASOPHILS # (AUTO) 0.1 10^3/uL (0.0-0.1); BASOPHILS % (AUTO) 1 % (0-10); EOSINOPHILS # (AUTO) 0.3 10^3/uL (0.0-0.3); EOSINOPHILS % (AUTO) 2 % (0-10); HEMATOCRIT 33 % (40-54); HEMOGLOBIN 10.2 g/dL (13.3-17.7); LYMPHOCYTES % (AUTO) 7 % (12-44); MEAN CORPUSCULAR HEMOGLOBIN 29 pg (25-34); MEAN CORPUSCULAR HGB CONC 31 g/dL (32-36); MEAN CORPUSCULAR VOLUME 95 fL (80-99); MEAN PLATELET VOLUME 9.7 fL (9.0-12.2); MONOCYTES # (AUTO) 0.9 10^3/uL (0.0-1.0); MONOCYTES % (AUTO) 6 % (0-12); NEUTROPHILS # (AUTO) 12.3 10^3/uL (1.8-7.8); NEUTROPHILS % (AUTO) 84 % (42-75); PLATELET COUNT 224 10^3/uL (130-400); WHITE BLOOD COUNT 14.6 10^3/uL (4.3-11.0)
[2021-09-07 07:13] LABS: CALCIUM 8.2 MG/DL (8.5-10.1); CREATININE SERUM 1.37 MG/DL (0.60-1.30); MAGNESIUM 1.5 MG/DL (1.6-2.4); POTASSIUM 4.2 MMOL/L (3.6-5.0)
[2021-09-07 08:00] VITALS: BP 139/70
[2021-09-07] MEDS ORDERED: ATENOLOL 25 MG (TENORMIN) TAB PO SCH (09:00)
[2021-09-07] MEDS ORDERED: NON-FORMULARY MEDICATION 1 EA EA (Sertraline HCl 25 MG) PO SCH (09:00)
[2021-09-07] MEDS ORDERED: NON-FORMULARY MEDICATION 1 EA EA (Bupropion HCl (Bupropion Xl) 150 MG) PO SCH (09:00)
[2021-09-07] MEDS ORDERED: buPROPion SR 150 MG (WELLBUTRIN SR) TAB PO SCH (09:00)
[2021-09-07] MEDS ORDERED: SERTRALINE 50 MG (ZOLOFT) TABLET PO SCH (09:00)
[2021-09-07] MEDS: MAGNESIUM 1 GM/100 ML IVPB 100 ML IV SCH ×3 (09:09→10:52)
[2021-09-07] MEDS: ALPRAZolam 0.25 MG (XANAX) TAB PO SCH (09:09)
--- NOTE | 2021-09-07 10:49 | Physical Therapy Evaluation ---
PT Evaluation-General Medical Diagnosis Admission Date Sep 06, 2021 at 00:09 Medical Diagnosis: UTI/CHANDRAKANT/leukocytosis Onset Date: Sep 06, 2021 Therapy Diagnosis Therapy Diagnosis: debility/weakness Height/Weight Height (Feet): 5 Height (Inches): 8.00 Weight (Pounds): 155 Weight (Ounces): 0.0 Precautions Precautions/Isolations: Fall Prevention, Standard Precautions Referral Physician: Xiang Reason for Referral: Evaluation/Treatment Medical History Pertinent Medical History: HTN Additional Medical History suprapubic catheter x 5 yrs Current History EMS secondary to fall/weakness (patient reports he sat on the arm of the recliner and lowered himself to his bottom. Denies fall) Reviewed History: Yes Social History Home: Apartment Current Living Status: Alone Entry Into Home: Level Entry Prior Prior Level of Function SCALE: Activities may be completed with or without assistive devices. 7-Supffwdjle-ruddjgl completes the activity by him/herself with no assistance from a helper. 5-Set-up or Clean-up Assistance-helper sets up or cleans up; patient completes activity. [place] assists only prior to or following the activity. 4-Supervision or Touching Assistance-helper provides verbal cues and/or touching/steadying and/or contact guard assistance as patient completes activity. Assistance may be provided throughout the activity or intermittently. 3-Partial/Moderate Assistance-helper does LESS THAN HALF the effort. [place] lifts, holds or supports trunk or limbs, but provides less than half the effort. 2-Substantial/Maximal Assistance-helper does MORE THAN HALF the effort. [place] lifts or holds trunk or limbs and provides more than half the effort. 2-Dvyjrvmcz-xnakmp does ALL the effort. Patient does none of the effort to complete the activity. Or, the assistance of 2 or more helpers is required for the patient to complete the activity. If activity was not attempted, code reason: 7-Patient Refused. 9-Not Applicable-not attempted and the patient did not perform the activity before the current illness, exacerbation or injury. 10-Not Attempted due to Environmental Limitations-(lack of equipment, weather restraints, etc.). 88-Not Attempted due to Medical Conditions or Safety Concerns. Bed Mobility: 6 Transfers (B,C,W/C): 6 Gait: 6 Stairs: 9 Wheelchair Mobility: 9 Indoor Mobility (Ambulation): Independent Prior Devices Use: None PT Evaluation-Current Subjective Patient agrees to PT. Objective Patient Orientation: Person, Time, Situation Attachments: Suprapubic Catheter, IV ROM/Strength ROM Lower Extremities bilateral LE WFL Strength Lower Extremities 4/5 grossly bilateral LE all planes Integumentary/Posture Bowel Incontinence: No Posture WFL Neuromuscular (Tone, Coordination, Reflexes) grossly intact Sensory Vision: Wears Glasses Hearing: Impaired Transfers Roll Left to Right (QC): 6 Sit to Lying (QC): 6 Lying to Sitting/Side of Bed(Q: 6 Sit to Stand (QC): 6 Chair/Xse-mo-Ycsmh Xfer(QC): 6 Gait Does the Patient Walk?: Yes Mode of Locomotion: Walk Anticipated Mode of Locomotion: Walk Walk 10 feet (QC): 5 Walk 50 ft with 2 Turns(QC): 5 Walk 150 ft (QC): 5 Distance: 550' Gait Assistive Device: FWW Comments/Gait Description FWW for stability due to patient's report of "balance issues" Balance Sitting Static: Normal Sitting Dynamic: Normal Standing Static: Normal Standing Dynamic: Normal Picking up an Object (QC): 6 Assessment/Needs 76 y.o. male, is currently at [facility] with gross motor skills and would benefit from FWW use in home and community. Patient agrees. Patient instructed to be up with nursing staff PRN. Rehab Potential: Fair PT Plan Treatment/Plan Treatment Plan: Discontinue PT Treatment Duration: Sep 07, 2021 Frequency: 1 time per week Estimated Hrs Per Day: .25 hour per day Patient and/or Family Agrees t: Yes Time/GCodes Time In: 928 Time Out: 943 Total Billed Treatment Time: 15 Total Billed Treatment 1 visit EVMod 15 min RUBA CUTLER PT Sep 07, 2021 10:48
[2021-09-07 11:21] VITALS: BP 143/72
[2021-09-07] MEDS ORDERED: AMOX-358 PO (12:09)
--- NOTE | 2021-09-07 12:18 | Discharge Summary ---
Discharge Summary Reconcile Patient Problems Problems Reviewed?: Yes Instructions for Patient Via [facility], Assessment/Instructions Take medications as prescribed. Complete your course of antibiotics. Follow up with Dr. Enriquez. Return with worsening weakness, pain, or if you feel like you are getting worse. Physician to follow Patient: Zoe Discharge Diet for Home: No Restrictions Hospital Course Date of Admission: Sep 06, 2021 at 00:09 Admission Diagnosis : Severe sepsis due to UTI Family Physician/Provider: Ben Enriquez DO Date of Discharge: 09/07/21 Discharge Diagnosis: Severe sepsis due to UTI Hospital Course: Mihir Hitchcock is a 76 year old male with suprapubic catheter, CKD3, debility, who was admitted with severe sepsis due to UTI. He was treated with IV antibiotics and improved. He was transitioned to oral Augmentin to be completed as an outpatient. His course was complicated by acute kidney injury on chronic kidney disease which improved with IV fluids. He also had a fall at home and worked with physical therapy. He was set up with home health care. He should follow up with Dr. Enriquez in about a week. Labs and Pending Lab Test: Laboratory Tests 09/07/21 06:29: White Blood Count 14.6H, Red Blood Count 3.51L, Hemoglobin 10.2L, Hematocrit 33L , Mean Corpuscular Volume 95, Mean Corpuscular Hemoglobin 29, Mean Corpuscular Hemoglobin Concent 31L, Red Cell Distribution Width 13.0, Platelet Count 224, Mean Platelet Volume 9.7, Immature Granulocyte % (Auto) 1, Neutrophils (%) (Aut o) 84H, Lymphocytes (%) (Auto) 7L, Monocytes (%) (Auto) 6, Eosinophils (%) (Auto) 2, Basophils (%) (Auto) 1, Neutrophils # (Auto) 12.3H, Lymphocytes # (Auto) 1.0, Monocytes # (Auto) 0.9, Eosinophils # (Auto) 0.3, Basophils # (Auto) 0.1, Immature Granulocyte # (Auto) 0.1, Sodium Level 131L, Potassium Level 4.2, Chloride Level 106, Carbon Dioxide Level 15L, Anion Gap 10, Blood Urea Nitrogen 16, Creatinine 1.37H, Estimat Glomerular Filtration Rate 51, BUN/Creatinine Ratio 12, Glucose Level 95, Calcium Level 8.2L, Magnesium Level 1.5L, Procalcitonin 0.32H Microbiology 09/05/21 Blood Culture - Preliminary, Resulted No growth 09/05/21 Urine Culture - Preliminary, Resulted Pseudomonas putida Culture In Progress Home Meds Active Augmentin 875-125 Tablet (Amoxicillin/Potassium Clav) 1 Each Tablet 1 Each PO BID 10 Days Reported Atorvastatin Calcium 80 Mg Tablet 40 Mg PO HS TAKES OF A 80MG TAB LAST FILLED 02-19-2021 #45/90 DAY SUPPLY Bupropion Xl (Bupropion HCl) 150 Mg Tab.er.24h 150 Mg PO DAILY Zinc 50 Mg Tablet 50 Mg PO DAILY Ferrous Sulfate 325 Mg Tablet 325 Mg PO DAILY LAST FILLED 04-26-2021 #100/100 DAY SUPPLY Donepezil HCl 10 Mg Tablet 10 Mg PO HS Vitamin D3 (Cholecalciferol (Vitamin D3)) 25 Mcg Capsule 50 Mcg PO DAILY TAKES 2 (25MCG) TABS Famotidine 40 Mg Tablet 40 Mg PO DAILY LAST FILLED 04-26-2021 #90/90 DAY SUPPLY Atenolol 25 Mg Tablet 25 Mg PO DAILY Cephalexin 500 Mg Capsule 500 Mg PO TID FILLED 09-04-2021 #30/10 DAY SUPPLY ALPRAZolam 0.25 Mg Tablet 0.25 Mg PO BID Sertraline HCl 25 Mg Tablet 25 Mg PO DAILY Flonase Allergy Relief (Fluticasone Propionate) 9.9 Ml [place].susp 1-2 [place] NSEACH BID PRN Vitamin B-12 (Cyanocobalamin (Vitamin B-12)) 500 Mcg Tablet 1,000 Mcg PO DAILY TAKES 2 (500MCG) TABS Magnesium Oxide 420 Mg Tablet 420 Mg PO BID Patient Allergies: Coded Allergies: Penicillins (Verified Allergy, Unknown, FROM CHILDHOOD, 05/02/20) Reacted as a child per uncoded allergy Height (Feet): 5 Height (Inches): 8.00 Weight (Pounds): 155 Weight (Ounces): 0.0 Home Health Need/Face to Face Date of Face to Face: Sep 07, 2021 Clinical Findings: Generalized weakness and fatigue, Instability, Muscle weakness, Unsteady gait I have seen Pt [id number]: Yes Discharged To: Home Diagnosis/Conditions: UTI Debility CKD3 Problems/Diagnosis/Condition: (1) CKD (chronic kidney disease) stage 3, GFR 30-59 ml/min (2) Suprapubic catheter (3) UTI (urinary tract infection) (4) Debility Patient is Homebound due to: Marco fall risk due to instabilty, Muscle weakness Homebound Status Due to the above stated illness, injury or surgical procedure (medical condition or diagnosis) and associated clinical findings, the patient is homebound because of his/her inability to leave home except with aid of a supportive device and/or person AND leaving the home requires a considerable and taxing effort or is medically contraindicated. Pt req the following assistanc: Aid of another person, [facility] Home Health Nursing Orders Home Health Services Order: Nursing Services, Hosiery Knitter-Evaluate & Treat, Physical Therapy-Evaluate & Treat Home Health Infusion Therapy Line Start Date: Sep 05, 2021 Therapy Orders Therapy Orders: OT (must have SN or PT order), Physical Therapy Therapy Specific Orders: Eval assistive deivces, Teach enviro modifications/safety, Gait training, Increase strength/endurance Certify Stmt I certify that this patient is under my care and that I, a nurse practitioner or a physician; a patient assistant working with me, had a face to face encounter that - meets the physician face to face encounter requirements with this patient as dated. Discharge Physical Exam General: Alert, Oriented X3, Cooperative, No Acute Distress HEENT: Atraumatic, EOMI, Mucous Memb Moist/[place] Lungs: Clear to Auscultation, Normal Air Movement Heart: Regular Rate, Normal S1, Normal S2, No Murmurs Abdomen: Normal Bowel Sounds, Soft, No Tenderness Extremities: No Edema, No Tenderness/Swelling Skin: No Rashes, No Significant Lesion Neuro: Normal Speech, Normal Tone Psych/Mental Status: Mental Status NL, Mood NL ZACH CALVIN MD Sep 07, 2021 12:18
[2021-09-07] MEDS: NS IV 1000 ML 1,000 ML IV SCH (13:08)
[2021-09-07 13:15] VITALS: BP 143/72
--- NOTE | 2021-09-14 18:58 | Physician Query Clarification ---
PQ-Link Infection to Dev/Proc Admission/Discharge Admission Date: Sep 06, 2021 at 00:09 Discharge Date: Sep 07, 2021 at 13:17 Dr. 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 Please document a response in Progress Note or Discharge Summary. 1. Yes - pseudomonas UTI is due to/associated with suprapubic cathether. 2. No - pseudomonas UTI is not due to/associated with suprapubic catheter. 3. Other, with explanation of the clinical findings. 4. Clinically undetermined, no explanation for the clinical findings. PHYSICIAN RESPONSE Specify if infection: 1 Please remember a lack of response to the above will prompt a phone page by CDI/Coding staff. In responding to this query, please exercise your independent professional judgment. The purpose of this communication is to more accurately reflect the complexity of your patients condition. The fact that a question is asked does not imply that any particular answer is desired or expected. Thank you for your timely response to this clarification. Requestors name: Ade THIS PHYSICIAN QUERY FORM IS A PERMANENT PART OF THE MEDICAL RECORD ADE FONTAINE Sep 14, 2021 18:58 ZACH CALVIN MD Sep 18, 2021 20:05
== END 2021-09-07 13:17 | disposition home health service (06) | DRG 698 ==
LOC: EDUNIT# 21:28 → ER 21:30 → 4TH 09-06 00:09
PROVIDERS: ADMIT Internal Medicine; ATTEND Internal Medicine
DX: T83.518A Infection and inflammatory reaction due to other urinary catheter, initial encounter (principal); A41.52 Sepsis due to Pseudomonas; R65.20 Severe sepsis without septic shock; N39.0 Urinary tract infection, site not specified; N17.9 Acute kidney failure, unspecified; N31.9 Neuromuscular dysfunction of bladder, unspecified; N32.0 Bladder-neck obstruction; E78.00 Pure hypercholesterolemia, unspecified; E78.5 Hyperlipidemia, unspecified; I12.9 Hypertensive chronic kidney disease with stage 1 through stage 4 chronic kidney disease, or unspecified chronic kidney disease; N18.30 Chronic kidney disease, stage 3 unspecified; K21.9 Gastro-esophageal reflux disease without esophagitis; H91.93 Unspecified hearing loss, bilateral; Z97.4 Presence of external hearing-aid; Z88.0 Allergy status to penicillin; F41.9 Anxiety disorder, unspecified; F32.A Depression, unspecified; F03.90 Unspecified dementia, unspecified severity, without behavioral disturbance, psychotic disturbance, mood disturbance, and anxiety
CPT/HCPCS: 36415; 71045; 80048; 81000; 83605; 83735; 84145; 85007; 85025; 85027; 85045; 85055; 86141; 87040; 87077; 87088; 87186; 96374

== ENCOUNTER 2022-01-05 07:48 | Emergency (ER) | payer MEDICARE, MEDICAID ==
[~2022-01-05] VITALS: Ht 172 cm; Wt 103.0 kg
[~2022-01-05 07:48] MED LIST changes: +ALPR0.254 PO; +AMOX-358 PO; +ATEN25TA PO; +BUPR150T14 PO; +CHOL10007 PO; +DONE10TA41 PO; +FERR325T18 PO; +ZINC50TA58 PO
[2022-01-05 07:51] VITALS: BP 149/87
--- NOTE | 2022-01-05 08:35 | ED GU-Male ---
General Chief Complaint: Catheter/Drain/Tube Problems Stated Complaint: CATHETER CAME OUT Nursing Triage Note: PT TO ED W/ C/O SUPRAPUBIC CATHETER FELL OUT THIS AM. PT BROUGHT CATHETER W/ HIM, BALLOON STILL INTACT ET INFLATED. PT DENIES C/O PAIN. NO OTHER C/O VOICED. Source: patient Exam Limitations: no limitations History of Present Illness Date Seen by Provider: Jan 05, 2022 Time Seen by Provider: 08:08 Initial Comments This is 76-year-old gentleman presents to the emergency room after he woke this morning to find his suprapubic catheter dislodged. He requests help inserting a new one. Allergies and Home Medications Allergies Coded Allergies: Penicillins (Verified Allergy, Unknown, FROM CHILDHOOD, 05/02/20) Reacted as a child per uncoded allergy Patient Home Medication List Home Medication List Reviewed: Yes ALPRAZolam (ALPRAZolam) 0.25 Mg Tablet, 0.25 MG PO BID, (Reported) Entered as Reported by: SENIA LUNA on 09/06/21 1208 Amoxicillin/Potassium Clav (Augmentin 875-125 Tablet) 1 Each Tablet, 1 EACH PO BID Prescribed by: ZACH CALVIN on 09/07/21 1209 Atenolol (Atenolol) 25 Mg Tablet, 25 MG PO DAILY, (Reported) Entered as Reported by: SENIA LUNA on 09/06/21 1208 Atorvastatin Calcium (Atorvastatin Calcium) 80 Mg Tablet, 40 MG PO HS, (Reported) Entered as Reported by: SENIA LUNA on 09/06/21 1212 Bupropion HCl (Bupropion Xl) 150 Mg Tab.er.24h, 150 MG PO DAILY, (Reported) Entered as Reported by: SENIA LUNA on 09/06/21 1210 Cholecalciferol (Vitamin D3) (Vitamin D3) 25 Mcg Capsule, 50 MCG PO DAILY, (Reported) Entered as Reported by: SENIA LUNA on 09/06/21 1208 Cyanocobalamin (Vitamin B-12) (Vitamin B-12) 500 Mcg Tablet, 1,000 MCG PO DAILY, (Reported) Entered as Reported by: SENIA LUNA on 11/27/20 1156 Donepezil HCl (Donepezil HCl) 10 Mg Tablet, 10 MG PO HS, (Reported) Entered as Reported by: SENIA LUNA on 09/06/21 1208 Famotidine (Famotidine) 40 Mg Tablet, 40 MG PO DAILY, (Reported) Entered as Reported by: SENIA LUNA on 09/06/21 1208 Ferrous Sulfate (Ferrous Sulfate) 325 Mg Tablet, 325 MG PO DAILY, (Reported) Entered as Reported by: SENIA LUNA on 09/06/21 1208 Fluticasone Propionate (Flonase Allergy Relief) 9.9 Ml [place].susp, 1-2 SPRAY NSEACH BID PRN for CONGESTION, (Reported) Entered as Reported by: SENIA LUNA on 11/27/20 1156 Magnesium Oxide (Magnesium Oxide) 420 Mg Tablet, 420 MG PO BID, (Reported) Entered as Reported by: ELLIS DIXON on 02/19/19 1347 Sertraline HCl (Sertraline HCl) 25 Mg Tablet, 25 MG PO DAILY, (Reported) Entered as Reported by: STEPHEN YAO on 08/21/21 0233 Zinc (Zinc) 50 Mg Tablet, 50 MG PO DAILY, (Reported) Entered as Reported by: SENIA LUNA on 09/06/21 1209 Review of Systems Review of Systems Constitutional: no symptoms reported Genitourinary: see HPI Past Wwttzum-Czhmok-Zdktbt Hx Patient Social History Tobacco Use?: No Use of E-Cig and/or Vaping dev: No Substance use?: No Alcohol Use?: No Pt feels they are or have been: No Immunizations Up To Date Tetanus Booster (TDap): Unknown First/Initial COVID19 Vaccinat: NOV 2020 Second COVID19 Vaccination Yg: DECEMBER 2020 Third COVID19 Vaccination Date: 08/24/21 Seasonal Allergies Seasonal Allergies: Yes Past Medical History Surgery/Hospitalization HX: NO RECENT MEDICAL HX Surgeries: Yes (lesion from neck, suprapubic cath, foot) Bladder Surgery Respiratory: No Cardiac: Yes High Cholesterol, Hypertension Neurological: Yes (VERY POOR MEMORY) Reproductive Disorders: No Sexually Transmitted Disease: No HIV/AIDS: No Genitourinary: Yes (suprapubic catheter) Prostate Problems, Neurogenic Bladder Gastrointestinal: Yes Gastroesophageal Reflux, Chronic Constipation, Hemorrhoids, Polyps Musculoskeletal: No Endocrine: No HEENT: Yes (GLASSES) Double Vision Loss of Vision: Denies Hearing Impairment: Hard of Hearing, Bilateral Hearing Aide Cancer: Yes Skin Did You Recieve Any Treatments: Yes What Type of Treatment Did You: Surgical Intervention Psychosocial: Yes Anxiety, Depression Integumentary: Yes (skin ca; CANDIDAL INTERTRIGO) Blood Disorders: No Adverse Reaction/Blood Tranf: No (N/A) Family Medical History No Pertinent Family Hx PAST SURGICAL HISTORY: -SUPRAPUBIC CATHETER PLACEMENT FOR NEUROGENIC BLADDER AND BLADDER OUTLET OBSTRUCTION Physical Exam Vital Signs Vital Signs - First Documented 01/05/22 07:51 Temp 36.2 Pulse 117 Resp 20 B/P (MAP) 149/87 (107) Pulse Ox 95 O2 Delivery Room Air Capillary Refill : Less Than 3 Seconds Height, Weight, BMI Height: 5'8.00" Weight: 155lbs. 0.0oz. 70.741985oc; 34.00 BMI Method:Stated General Appearance: WD/WN, no apparent distress Gastrointestinal: soft, tenderness Genital/Rectal: other (dislodged suprapubic catheter) Neurologic/Psychiatric: alert, normal mood/affect, oriented x 3 Skin: normal color, warm/dry, other (Large amount of granulation tissue around the catheter ostomy.) Progress/Results/Core Measures Suspected Sepsis SIRS Temperature: Pulse: 117 Respiratory Rate: 20 Blood Pressure 149 /87 Mean: 107 Results/Orders Vital Signs/I&O 01/05/22 07:51 Temp 36.2 Pulse 117 Resp 20 B/P (MAP) 149/87 (107) Pulse Ox 95 O2 Delivery Room Air Capillary Refill : Less Than 3 Seconds Blood Pressure Mean: 107 Progress Note : Progress Note Using sterile technique, suprapubic catheter was replaced with a new catheter provided by patient. There were no complications. Departure Impression Primary Impression: Suprapubic catheter dysfunction Qualified Codes: T83.010A - Breakdown (mechanical) of cystostomy catheter, initial encounter Disposition: HOME, SELF-CARE Condition: Improved Departure-Patient Inst. Decision time for Depature: 08:23 Referrals: SHARON EARL DO (PCP/Family) Primary Care Physician Patient Instructions: How to Care for Your Suprapubic Urinary Catheter Add. Discharge Instructions: Follow-up with Dr. Cuellar as previously directed. Empty your catheter bag frequently. Call with questions or concerns. Return to care if you have any further problems that need direct evaluation. All discharge instructions reviewed with patient and/or family. Voiced understanding. Copy Copies To 1: FABIANA CUELLAR MD, JOSHUA T MD Jan 05, 2022 08:35
== END 2022-01-05 08:36 | disposition home or self-care (01) ==
LOC: EDUNIT# 07:48 → ER 07:49
DX: T83.518A Infection and inflammatory reaction due to other urinary catheter, initial encounter (principal)
CPT/HCPCS: 99281

== ENCOUNTER 2022-01-19 10:17 | Emergency (ER) | payer MEDICARE, MEDICAID ==
[~2022-01-19] VITALS: Ht 172 cm; Wt 100.2 kg
[2022-01-19 10:48] LABS: BILIRUBIN,URINE NEGATIVE (NEGATIVE); CLARITY,URINE CLOUDY; COLOR,URINE YELLOW; GLUCOSE, URINE (UA) NEGATIVE (NEGATIVE); KETONES,URINE NEGATIVE (NEGATIVE); LEUKOCYTE ESTERASE ,URINE 3+ (NEGATIVE); NITRITE,URINE POSITIVE (NEGATIVE); PH,URINE >=9.0 (5-9); PROTEIN,URINE 2+ (NEGATIVE)
[2022-01-19 10:58] LABS: BACTERIA,URINE LARGE /HPF; TRIPLE PHOSPHATE CRYSTAL,UR LARGE /LPF
--- NOTE | 2022-01-19 11:52 | ED GU-Male ---
General Chief Complaint: - Reproductive Stated Complaint: UTI SYMPTOMS Nursing Triage Note: PT PRESENTS TO ED WITH COMPLAINTS OF CONTINUED UTI, WHICH HE HAS SEEN DR CUELLAR FOR AND PRESCRIBED AN ANTIBIOTIC, WHICH HE FINISHED LAST WEEK. PT ALSO COMPLAINS OF RECENT DIARRHEA AND BUTTCOCK SKIN BREAKDOWN. (LEONOR AUGUSTIN) History of Present Illness Date Seen by Provider: Jan 19, 2022 Time Seen by Provider: 11:20 Initial Comments 76-year-old male presents for UTI symptoms. He has a suprapubic catheter that is been present for many years, he reports its blocked because of a UTI. When this occurs he begins to have incontinence with urinary drainage from the penis. He has been wearing a depends. He has been seen by Dr. Cuellar recently and was treated with cefdinir for UTI that started on 01/03/2022. In August 2021 he was taking Augmentin for a UTI. Timing/Duration: getting worse Severity/Quality: moderate Associated Symptoms: denies symptoms (LEONOR AUGUSTIN) Allergies and Home Medications Allergies Coded Allergies: Penicillins (Verified Allergy, Unknown, FROM CHILDHOOD, 05/02/20) Reacted as a child per uncoded allergy Patient Home Medication List Home Medication List Reviewed: Yes (LEONOR AUGUSTIN) ALPRAZolam (ALPRAZolam) 0.25 Mg Tablet, 0.25 MG PO BID, (Reported) Entered as Reported by: SENIA LUNA on 09/06/21 1208 Amoxicillin/Potassium Clav (Augmentin 875-125 Tablet) 1 Each Tablet, 1 EACH PO BID Prescribed by: ZACH CALVIN on 09/07/21 1209 Atenolol (Atenolol) 25 Mg Tablet, 25 MG PO DAILY, (Reported) Entered as Reported by: SENIA LUNA on 09/06/21 1208 Atorvastatin Calcium (Atorvastatin Calcium) 80 Mg Tablet, 40 MG PO HS, (Reported) Entered as Reported by: SENIA LUNA on 09/06/21 1212 Bupropion HCl (Bupropion Xl) 150 Mg Tab.er.24h, 150 MG PO DAILY, (Reported) Entered as Reported by: SENIA LUNA on 09/06/21 1210 Cholecalciferol (Vitamin D3) (Vitamin D3) 25 Mcg Capsule, 50 MCG PO DAILY, (Reported) Entered as Reported by: SENIA LUNA on 09/06/21 1208 Cyanocobalamin (Vitamin B-12) (Vitamin B-12) 500 Mcg Tablet, 1,000 MCG PO DAILY, (Reported) Entered as Reported by: SENIA LUNA on 11/27/20 1156 Donepezil HCl (Donepezil HCl) 10 Mg Tablet, 10 MG PO HS, (Reported) Entered as Reported by: SENIA LUNA on 09/06/21 1208 Famotidine (Famotidine) 40 Mg Tablet, 40 MG PO DAILY, (Reported) Entered as Reported by: SENIA LUNA on 09/06/21 1208 Ferrous Sulfate (Ferrous Sulfate) 325 Mg Tablet, 325 MG PO DAILY, (Reported) Entered as Reported by: SENIA LUNA on 09/06/21 1208 Fluticasone Propionate (Flonase Allergy Relief) 9.9 Ml [place].susp, 1-2 SPRAY NSEACH BID PRN for CONGESTION, (Reported) Entered as Reported by: SENIA LUNA on 11/27/20 1156 Magnesium Oxide (Magnesium Oxide) 420 Mg Tablet, 420 MG PO BID, (Reported) Entered as Reported by: ELLIS DIXON on 02/19/19 1347 Sertraline HCl (Sertraline HCl) 25 Mg Tablet, 25 MG PO DAILY, (Reported) Entered as Reported by: STEPHEN YAO on 08/21/21 0233 Sulfamethoxazole/Trimethoprim (Bactrim Ds Tablet) 1 Each Tablet, 1 EACH PO BID Prescribed by: LEONOR AUGUSTIN on 01/19/22 1216 Zinc (Zinc) 50 Mg Tablet, 50 MG PO DAILY, (Reported) Entered as Reported by: SENIA LUNA on 09/06/21 1209 Review of Systems Review of Systems Constitutional: no symptoms reported, see HPI Genitourinary: see HPI, dysuria (LEONOR AUGUSTIN) All Other Systemes Reviewed Negative Unless Noted: Yes (LEONOR AUGUSTIN) Past Omiabqc-Pimqbx-Tkjtxg Hx Patient Social History Tobacco Use?: No Substance use?: No Alcohol Use?: No Pt feels they are or have been: No (LEONOR AUGUSTIN) Immunizations Up To Date Tetanus Booster (TDap): Unknown First/Initial COVID19 Vaccinat: NOV 2020 Second COVID19 Vaccination Yg: DECEMBER 2020 Third COVID19 Vaccination Date: 08/24/21 (LEONOR AUGUSTIN) Seasonal Allergies Seasonal Allergies: Yes (LEONOR AUGUSTIN) Past Medical History Surgery/Hospitalization HX: PMH: HIGH CHOL, HTN, DEPRESSION, GERD, CHRONIC UTI-SUPRAPUBIC CATH Surgeries: Yes (lesion from neck, suprapubic cath, foot) Bladder Surgery Respiratory: No Cardiac: Yes High Cholesterol, Hypertension Neurological: Yes (VERY POOR MEMORY) Reproductive Disorders: No Sexually Transmitted Disease: No HIV/AIDS: No Genitourinary: Yes (suprapubic catheter) Prostate Problems, Neurogenic Bladder Gastrointestinal: Yes Gastroesophageal Reflux, Chronic Constipation, Hemorrhoids, Polyps Musculoskeletal: No Endocrine: No HEENT: Yes (GLASSES) Double Vision Loss of Vision: Denies Hearing Impairment: Hard of Hearing, Bilateral Hearing Aide Cancer: Yes Skin Did You Recieve Any Treatments: Yes What Type of Treatment Did You: Surgical Intervention Psychosocial: Yes Anxiety, Depression Integumentary: Yes (skin ca; CANDIDAL INTERTRIGO) Blood Disorders: No Adverse Reaction/Blood Tranf: No (N/A) (LEONOR AUGUSTIN) Family Medical History Reviewed Nursing Family Hx (LOENOR AUGUSTIN) No Pertinent Family Hx PAST SURGICAL HISTORY: -SUPRAPUBIC CATHETER PLACEMENT FOR NEUROGENIC BLADDER AND BLADDER OUTLET OBSTRUCTION (LEONOR AUGUSTIN) Physical Exam Vital Signs Vital Signs - First Documented 01/19/22 10:33 Temp 36.3 Pulse 107 Resp 18 B/P (MAP) 168/108 (128) Pulse Ox 95 (ULISES STEELE MD) Vital Signs Capillary Refill : Less Than 3 Seconds (LEONOR AUGUSTIN) Height, Weight, BMI Height: 5'8.00" Weight: 155lbs. 0.0oz. 70.144637ja; 33.00 BMI Method:Stated General Appearance: WD/WN, no apparent distress Cardiovascular: normal peripheral pulses, regular rate, rhythm Respiratory: chest non-tender, lungs clear Gastrointestinal: normal bowel sounds, non tender, soft, other (Suprapubic catheter in place, no inflammation, erythema, or drainage.) Extremities: normal range of motion, non-tender, normal inspection Neurologic/Psychiatric: no motor/sensory deficits, alert, normal mood/affect, oriented x 3 (LEONOR AUGUSTIN) Progress/Results/Core Measures Suspected Sepsis SIRS Temperature: Pulse: 107 Respiratory Rate: 18 Blood Pressure 168 /108 Mean: 128 (LEONOR AUGUSTIN) Results/Orders Lab Results Laboratory Tests Test 01/19/22 10:42 Range/Units Urine Color YELLOW Urine Clarity CLOUDY Urine pH >=9.0 5-9 Urine Specific [place] <=1.005 1.016-1.022 Urine Protein 2+ H NEGATIVE Urine Glucose (UA) NEGATIVE NEGATIVE Urine Ketones NEGATIVE NEGATIVE Urine Nitrite POSITIVE H NEGATIVE Urine Bilirubin NEGATIVE NEGATIVE Urine Urobilinogen 0.2 < = 1.0 MG/DL Urine Leukocyte Esterase 3+ H NEGATIVE Urine RBC (Auto) 3+ H NEGATIVE Urine RBC 10-25 H /HPF Urine WBC 5-10 H /HPF Urine Crystals PRESENT H /LPF Urine Triple Phosphate Crystals LARGE H /LPF Urine Bacteria LARGE H /HPF Urine Casts NONE /LPF Urine Mucus NEGATIVE /LPF Urine Culture Indicated YES (ULISES STEELE MD) My Orders Orders - ULISES STEELE MD Ua Culture If Indicated (01/19/22 10:37) Urine Culture (01/19/22 10:42) (ULISES STEELE MD) Vital Signs/I&O 01/19/22 01/19/22 10:33 12:38 Temp 36.3 Pulse 107 90 Resp 18 18 B/P (MAP) 168/108 (128) 160/100 Pulse Ox 95 95 (ULISES STEELE MD) Vital Signs/I&O Capillary Refill : Less Than 3 Seconds (LEONOR AUGUSTIN) Blood Pressure Mean: 128 Progress Note : Time: 11:20 Progress Note Patient seen and evaluated, will obtain UA. Nursing staff to replace his catheter. [address] at his suprapubic site. No further leakage in urine draining into bag. Discharge instructions and return precautions reviewed with the patient. (LEONOR AUGUSTIN) Departure Impression Primary Impression: UTI (urinary tract infection) Qualified Codes: N30.01 - Acute cystitis with hematuria Additional Impression: Suprapubic catheter dysfunction Qualified Codes: T83.010A - Breakdown (mechanical) of cystostomy catheter, initial encounter Disposition: HOME, SELF-CARE Condition: Improved Departure-Patient Inst. Decision time for Depature: 12:15 (LEONOR AUGUSTIN) Referrals: SHARON EARL DO (PCP/Family) Primary Care Physician Patient Instructions: Urinary Tract Infection, Adult (DC) Add. Discharge Instructions: Monitor catheter for proper drainage. See Dr. Cuellar if catheter becomes clogged. Increase water intake. Follow-up with your primary care provider if symptoms are not improving or worse n. Eat 1 cup of fresh blueberries or drink 1 cup of cranberry juice daily. Return to the emergency department for new, urgent healthcare problems. All discharge instructions reviewed with patient and/or family. Voiced understanding. Scripts Sulfamethoxazole/Trimethoprim (Bactrim Ds Tablet) 1 Each Tablet 1 EACH PO BID, #20 TAB 0 Refills Prov: LEONOR AUGUSTIN 01/19/22 ATTENDING PHYSICIAN NOTE: I was physically present as attending physician in the emergency department during the care of this patient, but I was not directly involved in the decision making or delivery of care for this patient. (ULISES STEELE MD) Copy Copies To 1: SHARON EARL DO; FABIANA CUELLAR MD, AMY ARNP Jan 19, 2022 11:52 ULISES STEELE MD Jan 19, 2022 16:52
[2022-01-19] MEDS ORDERED: SULF1TAB38 PO (12:16)
[2022-01-19 12:38] VITALS: BP 160/100
== END 2022-01-19 12:37 | disposition home or self-care (01) ==
LOC: EDUNIT# 10:17 → ER 10:19
DX: N39.0 Urinary tract infection, site not specified (principal); T83.198A Other mechanical complication of other urinary devices and implants, initial encounter
CPT/HCPCS: 51702; 81000; 87077; 87088; 87186

== ENCOUNTER → 2022-01-21 | Outpatient (CLI) | payer MEDICARE, MEDICAID ==
[2022-01-21 10:09] LABS: BASOPHILS # (AUTO) 0.1 10^3/uL (0.0-0.1); BASOPHILS % (AUTO) 0 % (0-10); EOSINOPHILS # (AUTO) 0.6 10^3/uL (0.0-0.3); EOSINOPHILS % (AUTO) 3 % (0-10); HEMATOCRIT 34 % (40-54); HEMOGLOBIN 11.4 g/dL (13.3-17.7); LYMPHOCYTES # (AUTO) 0.8 10^3/uL (1.0-4.0); LYMPHOCYTES % (AUTO) 4 % (12-44); MEAN CORPUSCULAR HEMOGLOBIN 29 pg (25-34); MEAN CORPUSCULAR HGB CONC 33 g/dL (32-36); MEAN CORPUSCULAR VOLUME 87 fL (80-99); MEAN PLATELET VOLUME 9.5 fL (9.0-12.2); MONOCYTES # (AUTO) 1.5 10^3/uL (0.0-1.0); MONOCYTES % (AUTO) 7 % (0-12); NEUTROPHILS # (AUTO) 19.4 10^3/uL (1.8-7.8); NEUTROPHILS % (AUTO) 86 % (42-75); PLATELET COUNT 316 10^3/uL (130-400); WHITE BLOOD COUNT 22.4 10^3/uL (4.3-11.0)
[2022-01-21 10:13] LABS: BILIRUBIN,URINE NEGATIVE (NEGATIVE); CLARITY,URINE SL CLOUDY; COLOR,URINE YELLOW; GLUCOSE, URINE (UA) NEGATIVE (NEGATIVE); KETONES,URINE NEGATIVE (NEGATIVE); LEUKOCYTE ESTERASE ,URINE 3+ (NEGATIVE); NITRITE,URINE NEGATIVE (NEGATIVE); PROTEIN,URINE 1+ (NEGATIVE)
[2022-01-21 10:27] LABS: ALBUMIN 3.7 GM/DL (3.2-4.5); BILIRUBIN,TOTAL 0.4 MG/DL (0.1-1.0); CREATININE SERUM 1.69 MG/DL (0.60-1.30); POTASSIUM 4.3 MMOL/L (3.6-5.0); TOTAL PROTEIN 6.8 GM/DL (6.4-8.2)
[2022-01-21 10:38] LABS: RBC,URINE 25-50 /HPF; WBC,URINE 25-50 /HPF
[2022-01-21 10:39] LABS: BACTERIA,URINE FEW /HPF; SQUAMOUS EPITHELIAL CELL,UR 0-2 /HPF
[2022-01-21 11:04] LABS: EOSINOPHILS % (MANUAL) 1 %; LYMPHOCYTES % (MANUAL) 2 %; MONOCYTES % (MANUAL) 10 %; NEUTROPHILS % (MANUAL) 87 %; RBC MORPH NORMAL
== END ==
LOC: LAB 09:52
PROVIDERS: ATTEND Family Medicine
DX: N28.9 Disorder of kidney and ureter, unspecified (principal); R11.10 Vomiting, unspecified
CPT/HCPCS: 36415; 80053; 81000; 85007; 85027; 87077; 87088

== ENCOUNTER 2022-01-22 11:03 | Outpatient (RCR) | payer MEDICARE, MEDICAID ==
[~2022-01-22 11:03] MED LIST changes: +BUPR-105 PO; -BUPR150T14 PO; +OMEP20TA56 PO; -OMEP20TA7 PO
[2022-01-22 11:20] LABS: BASOPHILS # (AUTO) 0.1 10^3/uL (0.0-0.1); BASOPHILS % (AUTO) 1 % (0-10); EOSINOPHILS # (AUTO) 0.8 10^3/uL (0.0-0.3); EOSINOPHILS % (AUTO) 4 % (0-10); HEMATOCRIT 33 % (40-54); HEMOGLOBIN 11.2 g/dL (13.3-17.7); LYMPHOCYTES # (AUTO) 1.4 10^3/uL (1.0-4.0); LYMPHOCYTES % (AUTO) 8 % (12-44); MEAN CORPUSCULAR HEMOGLOBIN 29 pg (25-34); MEAN CORPUSCULAR HGB CONC 34 g/dL (32-36); MEAN CORPUSCULAR VOLUME 87 fL (80-99); MEAN PLATELET VOLUME 9.8 fL (9.0-12.2); MONOCYTES # (AUTO) 1.5 10^3/uL (0.0-1.0); MONOCYTES % (AUTO) 8 % (0-12); NEUTROPHILS # (AUTO) 14.6 10^3/uL (1.8-7.8); NEUTROPHILS % (AUTO) 79 % (42-75); PLATELET COUNT 312 10^3/uL (130-400); WHITE BLOOD COUNT 18.5 10^3/uL (4.3-11.0)
[2022-01-23 08:56] LABS: BASOPHILS # (AUTO) 0.1 10^3/uL (0.0-0.1); BASOPHILS % (AUTO) 1 % (0-10); EOSINOPHILS # (AUTO) 0.4 10^3/uL (0.0-0.3); EOSINOPHILS % (AUTO) 4 % (0-10); HEMATOCRIT 34 % (40-54); HEMOGLOBIN 11.3 g/dL (13.3-17.7); LYMPHOCYTES % (AUTO) 8 % (12-44); MEAN CORPUSCULAR HEMOGLOBIN 29 pg (25-34); MEAN CORPUSCULAR HGB CONC 33 g/dL (32-36); MEAN CORPUSCULAR VOLUME 88 fL (80-99); MONOCYTES % (AUTO) 8 % (0-12); NEUTROPHILS # (AUTO) 10.1 10^3/uL (1.8-7.8); NEUTROPHILS % (AUTO) 80 % (42-75); PLATELET COUNT 315 10^3/uL (130-400); WHITE BLOOD COUNT 12.6 10^3/uL (4.3-11.0)
[2022-01-23 09:54] LABS: EOSINOPHILS % (MANUAL) 2 %; LYMPHOCYTES % (MANUAL) 10 %; MONOCYTES % (MANUAL) 4 %; NEUTROPHILS % (MANUAL) 84 %
[2022-01-23 09:55] LABS: RBC MORPH NORMAL
== END 2022-02-16 | disposition home or self-care (01) ==
LOC: LAB 11:03
PROVIDERS: ATTEND Family Medicine
DX: D72.829 Elevated white blood cell count, unspecified (principal); N39.0 Urinary tract infection, site not specified
CPT/HCPCS: 36415; 85007; 85025; 85027

== ENCOUNTER → 2022-01-28 | Outpatient (CLI) | payer MEDICARE, MEDICAID ==
[~2022-01-28] MED LIST changes: -BUPR-105 PO; +BUPR150T14 PO; -OMEP20TA56 PO; +OMEP20TA7 PO
[2022-01-28 09:08] LABS: BILIRUBIN,URINE NEGATIVE (NEGATIVE); CLARITY,URINE TURBID; COLOR,URINE YELLOW; GLUCOSE, URINE (UA) NEGATIVE (NEGATIVE); KETONES,URINE NEGATIVE (NEGATIVE); LEUKOCYTE ESTERASE ,URINE 3+ (NEGATIVE); NITRITE,URINE NEGATIVE (NEGATIVE); PROTEIN,URINE NEGATIVE (NEGATIVE)
[2022-01-28 09:19] LABS: BACTERIA,URINE TRACE /HPF; WBC,URINE 25-50 /HPF
[2022-01-28 09:20] LABS: SQUAMOUS EPITHELIAL CELL,UR 0-2 /HPF
== END ==
LOC: LAB 08:47
PROVIDERS: ATTEND Family Medicine
DX: N39.0 Urinary tract infection, site not specified (principal)
CPT/HCPCS: 81000; 87088

== ENCOUNTER 2022-11-29 09:10 | Emergency (ER) | payer MEDICARE, MEDICAID ==
[~2022-11-29] VITALS: Ht 173 cm; Wt 104.0 kg
[~2022-11-29 09:10] MED LIST changes: +BUPR-105 PO; -BUPR150T14 PO; +OMEP20TA56 PO; -OMEP20TA7 PO
--- NOTE | 2022-11-29 10:46 | ED General ---
General Chief Complaint: General Problems/Pain Stated Complaint: NEEDS CATHETER REPLACED Nursing Triage Note: Pt ambulatory to ER w c/o needing cathetar changed. Patient states he used to see Dr. Jose until he retired. He's had a suprapubic catheter for 5 years and gets it changed every 6-8 weeks. Patient in need of a new urologist and [employer]. Source of Information: Patient Exam Limitations: No Limitations History of Present Illness Date Seen by Provider: Nov 29, 2022 Time Seen by Provider: 10:00 Initial Comments Patient has not established with a new urologist since Dr. Doyle retired. He is past due to have his suprapubic catheter switched our. He is having not significant symptoms or complications at this time. Allergies and Home Medications Allergies Coded Allergies: Penicillins (Verified Allergy, Unknown, FROM CHILDHOOD, 05/02/20) Reacted as a child per uncoded allergy Patient Home Medication List Home Medication List Reviewed: Yes ALPRAZolam (ALPRAZolam) 0.25 Mg Tablet, 0.25 MG PO BID, (Reported) Entered as Reported by: SENIA LUNA on 09/06/21 1208 Amoxicillin/Potassium Clav (Augmentin 875-125 Tablet) 1 Each Tablet, 1 EACH PO BID Prescribed by: ZACH CALVIN on 09/07/21 1209 Atenolol (Atenolol) 25 Mg Tablet, 25 MG PO DAILY, (Reported) Entered as Reported by: SENIA LUNA on 09/06/21 1208 Atorvastatin Calcium (Atorvastatin Calcium) 80 Mg Tablet, 40 MG PO HS, (Reported) Entered as Reported by: SENIA LUNA on 09/06/21 1212 Bupropion HCl (Bupropion Xl) 150 Mg Tab.er.24h, 150 MG PO DAILY, (Reported) Entered as Reported by: SENIA LUNA on 09/06/21 1210 Cholecalciferol (Vitamin D3) (Vitamin D3) 25 Mcg Capsule, 50 MCG PO DAILY, (Reported) Entered as Reported by: SENIA LUNA on 09/06/21 1208 Cyanocobalamin (Vitamin B-12) (Vitamin B-12) 500 Mcg Tablet, 1,000 MCG PO DAILY, (Reported) Entered as Reported by: SENIA LUNA on 11/27/20 1156 Donepezil HCl (Donepezil HCl) 10 Mg Tablet, 10 MG PO HS, (Reported) Entered as Reported by: SENIA LUNA on 09/06/21 1208 Famotidine (Famotidine) 40 Mg Tablet, 40 MG PO DAILY, (Reported) Entered as Reported by: SENIA LUNA on 09/06/21 1208 Ferrous Sulfate (Ferrous Sulfate) 325 Mg Tablet, 325 MG PO DAILY, (Reported) Entered as Reported by: SENIA LUNA on 09/06/21 1208 Fluticasone Propionate (Flonase Allergy Relief) 9.9 Ml [place].susp, 1-2 SPRAY NSEACH BID PRN for CONGESTION, (Reported) Entered as Reported by: SENIA LUNA on 11/27/20 1156 Magnesium Oxide (Magnesium Oxide) 420 Mg Tablet, 420 MG PO BID, (Reported) Entered as Reported by: ELLIS DIXON on 02/19/19 1347 Sertraline HCl (Sertraline HCl) 25 Mg Tablet, 25 MG PO DAILY, (Reported) Entered as Reported by: STEPHEN YAO on 08/21/21 0233 Sulfamethoxazole/Trimethoprim (Bactrim Ds Tablet) 1 Each Tablet, 1 EACH PO BID Prescribed by: LEONOR AUGUSTIN on 01/19/22 1216 Zinc (Zinc) 50 Mg Tablet, 50 MG PO DAILY, (Reported) Entered as Reported by: SENIA LUNA on 09/06/21 1209 Review of Systems Review of Systems Constitutional: no symptoms reported Genitourinary: see HPI Past Vkskhoo-Vuvspw-Neeupg Hx Patient Social History Tobacco Use?: No Substance use?: No Alcohol Use?: No Immunizations Up To Date Tetanus Booster (TDap): Unknown First/Initial COVID19 Vaccinat: NOV 2020 Second COVID19 Vaccination Yg: DECEMBER 2020 Third COVID19 Vaccination Date: 08/24/21 COVID19 Vaccine Manager Mobility: moderna Seasonal Allergies Seasonal Allergies: Yes Past Medical History Surgery/Hospitalization HX: PMH: HIGH CHOL, HTN, DEPRESSION, GERD, CHRONIC UTI-SUPRAPUBIC CATH Surgeries: Yes (lesion from neck, suprapubic cath, foot) Bladder Surgery Respiratory: No Cardiac: Yes High Cholesterol, Hypertension Neurological: Yes (VERY POOR MEMORY) Reproductive Disorders: No Sexually Transmitted Disease: No HIV/AIDS: No Genitourinary: Yes (suprapubic catheter) Prostate Problems, Neurogenic Bladder Gastrointestinal: Yes Gastroesophageal Reflux, Chronic Constipation, Hemorrhoids, Polyps Musculoskeletal: No Endocrine: No HEENT: Yes (GLASSES) Double Vision Loss of Vision: Denies Hearing Impairment: Hard of Hearing, Bilateral Hearing Aide Cancer: Yes Skin Did You Recieve Any Treatments: Yes What Type of Treatment Did You: Surgical Intervention Psychosocial: Yes Anxiety, Depression Integumentary: Yes (skin ca; CANDIDAL INTERTRIGO) Blood Disorders: No Adverse Reaction/Blood Tranf: No (N/A) Family Medical History No Pertinent Family Hx PAST SURGICAL HISTORY: -SUPRAPUBIC CATHETER PLACEMENT FOR NEUROGENIC BLADDER AND BLADDER OUTLET OBSTRUCTION Physical Exam Vital Signs Vital Signs - First Documented 11/29/22 11/29/22 09:19 10:49 Temp 36.4 Pulse 107 Resp 18 B/P (MAP) 174/102 (126) Pulse Ox 95 O2 Delivery Room Air Capillary Refill : Less Than 3 Seconds Height, Weight, BMI Height: 5'8.00" Weight: 155lbs. 0.0oz. [id number]; 34.00 BMI Method:Stated General Appearance: No Apparent Distress, WD/WN Gastrointestinal: Non Tender, Soft, Other (suprapubic cath site clean and dry without inflammatory changes) Progress/Results/Core Measures Suspected Sepsis SIRS Temperature: Pulse: 107 Respiratory Rate: 18 Blood Pressure 174 /102 Mean: 126 Results/Orders Vital Signs/I&O 11/29/22 11/29/22 09:19 10:49 Temp 36.4 Pulse 107 104 Resp 18 18 B/P (MAP) 174/102 (126) 158/62 Pulse Ox 95 O2 Delivery Room Air Room Air Capillary Refill : Less Than 3 Seconds Blood Pressure Mean: 126 Progress Note : Progress Note Catheter was removed and replaced by nursing staff. I personally inflated the bulb and flushed the catheter with NS to ensure good placement. Catheter flushed easily without pain and urine returned. I contacted the general surgery offices to inquire about routine catheter replacement in their office. Dr. Pitts advised this could be done in his office. Patient was given his contact info. See discharge instructions for further discussion. Departure Impression Primary Impression: Encounter for suprapubic catheter care Disposition: HOME, SELF-CARE Condition: Improved Departure-Patient Inst. Decision time for Depature: 10:44 Referrals: ALEXANDREA PITTS BRETT D DO GELLENDER, RICHARD A DO (PCP/Family) Primary Care Physician Patient Instructions: How to Care for Your Suprapubic Urinary Catheter Add. Discharge Instructions: Return to care with Dr. EARL or the emergency room if you believe you have escalating symptoms of urinary tract infection. Try to keep your catheter bag below the level of your bladder is much as possible. You may establish with Dr. Pitts or Dr. Castrejon (general surgeons in [place]) for routine maintenance of your suprapubic catheter if desired. Their contact information is below. Seek referral to a new urologist from Dr. EARL. Please return to the emergency room if you have any other problems or worsening of symptoms. All discharge instructions reviewed with patient and/or family. Voiced understanding. Copy Copies To 1: SHARON EARL DO Copies To 2: ALEXANDREA PITTS JOSHUA T MD Nov 29, 2022 10:46
[2022-11-29 10:49] VITALS: BP 158/62
== END 2022-11-29 10:49 | disposition home or self-care (01) ==
LOC: EDUNIT# 09:10 → ER 09:12
DX: Z46.6 Encounter for fitting and adjustment of urinary device (principal)
CPT/HCPCS: 51702

== ENCOUNTER 2023-02-08 08:49 | Emergency (ER) | payer MEDICARE, MEDICAID ==
--- NOTE | 2023-02-08 09:09 | ED GU-Male ---
General Chief Complaint: - Reproductive Stated Complaint: NEEDS CATHETER CHANGED Source: patient Exam Limitations: no limitations History of Present Illness Date Seen by Provider: Feb 08, 2023 Time Seen by Provider: 08:58 Initial Comments Patient is a 77-year-old male with a history of chronic indwelling suprapubic catheter. As we do not have local urology anymore the patient is presenting requesting a change in his catheter. He states it has been a couple of months. Per review of the medical records early November. He states that his catheter still draining. Denies any abdominal pain, nausea vomiting. No recent fevers or chills. No other complaints of illness or injury. Associated Symptoms: denies symptoms Allergies and Home Medications Allergies Coded Allergies: Penicillins (Verified Allergy, Unknown, FROM CHILDHOOD, 05/02/20) Reacted as a child per uncoded allergy Patient Home Medication List Home Medication List Reviewed: Yes ALPRAZolam (ALPRAZolam) 0.25 Mg Tablet, 0.25 MG PO BID, (Reported) Entered as Reported by: SENIA LUNA on 09/06/21 1208 Amoxicillin/Potassium Clav (Augmentin 875-125 Tablet) 1 Each Tablet, 1 EACH PO BID Prescribed by: ZACH CALVIN on 09/07/21 1209 Atenolol (Atenolol) 25 Mg Tablet, 25 MG PO DAILY, (Reported) Entered as Reported by: SENIA LUNA on 09/06/21 1208 Atorvastatin Calcium (Atorvastatin Calcium) 80 Mg Tablet, 40 MG PO HS, (Reported) Entered as Reported by: SENIA LUNA on 09/06/21 1212 Bupropion HCl (Bupropion Xl) 150 Mg Tab.er.24h, 150 MG PO DAILY, (Reported) Entered as Reported by: SENIA LUNA on 09/06/21 1210 Cholecalciferol (Vitamin D3) (Vitamin D3) 25 Mcg Capsule, 50 MCG PO DAILY, (Reported) Entered as Reported by: SENIA LUNA on 09/06/21 1208 Cyanocobalamin (Vitamin B-12) (Vitamin B-12) 500 Mcg Tablet, 1,000 MCG PO DAILY, (Reported) Entered as Reported by: SENIA LUNA on 11/27/20 1156 Donepezil HCl (Donepezil HCl) 10 Mg Tablet, 10 MG PO HS, (Reported) Entered as Reported by: SENIA LUNA on 09/06/21 1208 Famotidine (Famotidine) 40 Mg Tablet, 40 MG PO DAILY, (Reported) Entered as Reported by: SEINA LUNA on 09/06/21 1208 Ferrous Sulfate (Ferrous Sulfate) 325 Mg Tablet, 325 MG PO DAILY, (Reported) Entered as Reported by: SENIA LUNA on 09/06/21 1208 Fluticasone Propionate (Flonase Allergy Relief) 9.9 Ml [place].susp, 1-2 SPRAY NSEACH BID PRN for CONGESTION, (Reported) Entered as Reported by: SENIA LUNA on 11/27/20 1156 Magnesium Oxide (Magnesium Oxide) 420 Mg Tablet, 420 MG PO BID, (Reported) Entered as Reported by: ELLIS DIXON on 02/19/19 1347 Sertraline HCl (Sertraline HCl) 25 Mg Tablet, 25 MG PO DAILY, (Reported) Entered as Reported by: STEPHEN YAO on 08/21/21 0233 Sulfamethoxazole/Trimethoprim (Bactrim Ds Tablet) 1 Each Tablet, 1 EACH PO BID Prescribed by: LEONOR AUGUSTIN on 01/19/22 1216 Zinc (Zinc) 50 Mg Tablet, 50 MG PO DAILY, (Reported) Entered as Reported by: SENIA LUNA on 09/06/21 1209 Review of Systems Review of Systems Constitutional: see HPI Respiratory: no symptoms reported Cardiovascular: no symptoms reported Gastrointestinal: no symptoms reported Genitourinary: no symptoms reported, other (Desires suprapubic catheter exchange) Musculoskeletal: no symptoms reported Skin: no symptoms reported All Other Systemes Reviewed Negative Unless Noted: Yes Past Nscrxxn-Akkulr-Mvpehe Hx Immunizations Up To Date Tetanus Booster (TDap): Unknown First/Initial COVID19 Vaccinat: NOV 2020 Second COVID19 Vaccination Yg: DECEMBER 2020 Third COVID19 Vaccination Date: 08/24/21 Seasonal Allergies Seasonal Allergies: Yes Past Medical History Surgery/Hospitalization HX: PMH: HIGH CHOL, HTN, DEPRESSION, GERD, CHRONIC UTI-SUPRAPUBIC CATH Surgeries: Yes (lesion from neck, suprapubic cath, foot) Bladder Surgery Respiratory: No Cardiac: Yes High Cholesterol, Hypertension Neurological: Yes (VERY POOR MEMORY) Reproductive Disorders: No Sexually Transmitted Disease: No HIV/AIDS: No Genitourinary: Yes (suprapubic catheter) Prostate Problems, Neurogenic Bladder Gastrointestinal: Yes Gastroesophageal Reflux, Chronic Constipation, Hemorrhoids, Polyps Musculoskeletal: No Endocrine: No HEENT: Yes (GLASSES) Double Vision Loss of Vision: Denies Hearing Impairment: Hard of Hearing, Bilateral Hearing Aide Cancer: Yes Skin Did You Recieve Any Treatments: Yes What Type of Treatment Did You: Surgical Intervention Psychosocial: Yes Anxiety, Depression Integumentary: Yes (skin ca; CANDIDAL INTERTRIGO) Blood Disorders: No Adverse Reaction/Blood Tranf: No (N/A) Family Medical History No Pertinent Family Hx PAST SURGICAL HISTORY: -SUPRAPUBIC CATHETER PLACEMENT FOR NEUROGENIC BLADDER AND BLADDER OUTLET OBSTRUCTION Physical Exam Vital Signs Capillary Refill : Height, Weight, BMI Height: 5'8.00" Weight: 155lbs. 0.0oz. 70.000303oi; 34.00 BMI Method:Stated General Appearance: WD/WN, no apparent distress Cardiovascular: regular rate, rhythm Respiratory: lungs clear, normal breath sounds, no respiratory distress, no accessory muscle use Gastrointestinal: non tender, soft, other (Suprapubic catheter site appears normal without erythema or drainage) Extremities: normal range of motion, non-tender Neurologic/Psychiatric: alert, normal mood/affect Skin: normal color, warm/dry Progress/Results/Core Measures Suspected Sepsis SIRS Temperature: Pulse: Respiratory Rate: Blood Pressure / Mean: Results/Orders Vital Signs/I&O Capillary Refill : Departure Impression Primary Impression: Encounter for suprapubic catheter care Disposition: 01 HOME, SELF-CARE Condition: Stable Departure-Patient Inst. Decision time for Depature: 09:06 Referrals: ALEXANDREA PITTS BRETT D DO GELLENDER, RICHARD A DO (PCP/Family) Primary Care Physician Add. Discharge Instructions: Dr Castrejon or Dr Pitts's office will be more than happy to exchange your ca theter in their office. Please call their office on Friday to schedule a visit in 2 months to have the catheter exchanged. [phone] If you develop any new, concerning or emergent symptoms, please return to the Emergency Department for re-evaluation. Please follow up as scheduled with your primary care doctor. Copy Copies To 1: SHARON EARL KATHRYN M MD Feb 08, 2023 09:09
[2023-02-08 09:36] VITALS: BP 178/86
== END 2023-02-08 09:42 | disposition home or self-care (01) ==
LOC: EDUNIT# 08:49 → ER 08:51
DX: Z46.6 Encounter for fitting and adjustment of urinary device (principal)
CPT/HCPCS: 51702

== ENCOUNTER → 2023-04-17 | Outpatient (CLI) | payer MEDICARE, MEDICAID ==
[~2023-04-17] MED LIST changes: +POTA-330 PO; -POTA-51 PO
[2023-04-17 08:34] LABS: HEMATOCRIT 35 % (40-54); HEMOGLOBIN 11.6 g/dL (13.3-17.7); MEAN CORPUSCULAR HEMOGLOBIN 30 pg (25-34); MEAN CORPUSCULAR HGB CONC 34 g/dL (32-36); MEAN CORPUSCULAR VOLUME 89 fL (80-99); MEAN PLATELET VOLUME 9.6 fL (9.0-12.2); PLATELET COUNT 295 10^3/uL (130-400); WHITE BLOOD COUNT 9.8 10^3/uL (4.3-11.0)
[2023-04-17 08:39] LABS: BILIRUBIN,URINE NEGATIVE (NEGATIVE); CLARITY,URINE CLEAR; COLOR,URINE YELLOW; GLUCOSE, URINE (UA) NEGATIVE (NEGATIVE); KETONES,URINE NEGATIVE (NEGATIVE); LEUKOCYTE ESTERASE ,URINE 3+ (NEGATIVE); NITRITE,URINE POSITIVE (NEGATIVE); PH,URINE 8.5 (5-9); PROTEIN,URINE TRACE (NEGATIVE)
[2023-04-17 08:43] LABS: POTASSIUM 3.9 MMOL/L (3.6-5.0)
[2023-04-17 08:44] LABS: ALBUMIN 3.7 GM/DL (3.2-4.5)
[2023-04-17 08:45] LABS: CALCIUM 8.9 MG/DL (8.5-10.1)
[2023-04-17 08:46] LABS: TOTAL PROTEIN 6.7 GM/DL (6.4-8.2)
[2023-04-17 08:48] LABS: BILIRUBIN,TOTAL 0.4 MG/DL (0.1-1.0)
[2023-04-17 08:49] LABS: CREATININE SERUM 1.39 MG/DL (0.60-1.30)
[2023-04-17 08:53] LABS: MAGNESIUM 1.8 MG/DL (1.6-2.4)
[2023-04-17 09:05] LABS: AMORPHOUS SEDIMENT,UR MOD AMOR PHOSPHATE /LPF; BACTERIA,URINE MODERATE /HPF; SQUAMOUS EPITHELIAL CELL,UR RARE /HPF
[2023-04-17 09:09] LABS: TRIPLE PHOSPHATE CRYSTAL,UR RARE /LPF
== END ==
LOC: LAB 08:19
PROVIDERS: ATTEND Family Medicine
DX: E78.5 Hyperlipidemia, unspecified (principal); N28.9 Disorder of kidney and ureter, unspecified; D51.9 Vitamin B12 deficiency anemia, unspecified; N39.0 Urinary tract infection, site not specified; Z95.9 Presence of cardiac and vascular implant and graft, unspecified
CPT/HCPCS: 36415; 80053; 80061; 81000; 82607; 83735; 84443; 85027; 87088

== ENCOUNTER 2023-06-26 13:13 | Emergency (ER) | payer MEDICARE, MEDICAID ==
[~2023-06-26] VITALS: Ht 172 cm; Wt 58.9 kg
[2023-06-26] MEDS ORDERED: NS IV 500 ML 500 ML IV ONE (13:30)
--- NOTE | 2023-06-26 13:36 | ED General ---
General Chief Complaint: Cough/Cold/Flu Symptoms Stated Complaint: BALANCE ISSUES | CONFUSION | COUGH Source of Information: Patient Exam Limitations: No Limitations History of Present Illness Date Seen by Provider: Jun 26, 2023 Time Seen by Provider: 13:22 Initial Comments Here with report of a couple days of cough and congestion and not feeling well. Also notes that he is off balance today. Does have history of suprapubic catheter. States that that is been working fine and no issues. States like he feels a little bit confused. Denies sore throat or runny nose. Feels like he may be a little dehydrated. Does have history of similar problems in the past and has had urinary tract issues. He is vaccinated for COVID and is due to get this years flu shot next week. Timing/Duration: 1-2 Days, Intermittent Severity: Mild Associated Systoms: No Chest Pain; Cough; No Fever/Chills, No Shortness of Air; Weakness Allergies and Home Medications Allergies Coded Allergies: Penicillins (Verified Allergy, Unknown, FROM CHILDHOOD, [birth year]) Reacted as a child per uncoded allergy Patient Home Medication List Home Medication List Reviewed: Yes ALPRAZolam (ALPRAZolam) 0.25 Mg Tablet, 0.25 MG PO BID, (Reported) Entered as Reported by: SENIA LUNA on 09/06/21 1208 Amoxicillin/Potassium Clav (Augmentin 875-125 Tablet) 1 Each Tablet, 1 EACH PO BID Prescribed by: ZACH CALVIN on 09/07/21 1209 Atenolol (Atenolol) 25 Mg Tablet, 25 MG PO DAILY, (Reported) Entered as Reported by: SENIA LUNA on 09/06/21 1208 Atorvastatin Calcium (Atorvastatin Calcium) 80 Mg Tablet, 40 MG PO HS, (Reported) Entered as Reported by: SENIA LUNA on 09/06/21 1212 Bupropion HCl (Bupropion Xl) 150 Mg Tab.er.24h, 150 MG PO DAILY, (Reported) Entered as Reported by: SENIA LUNA on 09/06/21 1210 Cholecalciferol (Vitamin D3) (Vitamin D3) 25 Mcg Capsule, 50 MCG PO DAILY, (Reported) Entered as Reported by: SENIA LUNA on 09/06/21 1208 Ciprofloxacin HCl (Ciprofloxacin HCl) 250 Mg Tablet, 250 MG PO BID Prescribed by: GINNY CORTÉS on 06/26/23 1551 Cyanocobalamin (Vitamin B-12) (Vitamin B-12) 500 Mcg Tablet, 1,000 MCG PO DAILY, (Reported) Entered as Reported by: SENIA LUNA on 11/27/20 1156 Donepezil HCl (Donepezil HCl) 10 Mg Tablet, 10 MG PO HS, (Reported) Entered as Reported by: SENIA LUNA on 09/06/21 1208 Famotidine (Famotidine) 40 Mg Tablet, 40 MG PO DAILY, (Reported) Entered as Reported by: SENIA LUNA on 09/06/21 1208 Ferrous Sulfate (Ferrous Sulfate) 325 Mg Tablet, 325 MG PO DAILY, (Reported) Entered as Reported by: SENIA LUNA on 09/06/21 1208 Fluticasone Propionate (Flonase Allergy Relief) 9.9 Ml [place].susp, 1-2 SPRAY NSEACH BID PRN for CONGESTION, (Reported) Entered as Reported by: SENIA LUNA on 11/27/20 1156 Magnesium Oxide (Magnesium Oxide) 420 Mg Tablet, 420 MG PO BID, (Reported) Entered as Reported by: ELLIS DIXON on 02/19/19 1347 Sertraline HCl (Sertraline HCl) 25 Mg Tablet, 25 MG PO DAILY, (Reported) Entered as Reported by: STEPHEN YAO on 08/21/21 0233 Sulfamethoxazole/Trimethoprim (Bactrim Ds Tablet) 1 Each Tablet, 1 EACH PO BID Prescribed by: LEONOR AUGUSTIN on 01/19/22 1216 Zinc (Zinc) 50 Mg Tablet, 50 MG PO DAILY, (Reported) Entered as Reported by: SENIA LUNA on 09/06/21 1209 Review of Systems Review of Systems Constitutional: see HPI; No chills, No fever; weakness EENTM: nose congestion; No throat pain Respiratory: cough, short of breath Cardiovascular: No chest pain, No edema Gastrointestinal: No diarrhea, No nausea, No vomiting Genitourinary: No pain Musculoskeletal: no symptoms reported Skin: No lesions, No rash Psychiatric/Neurological: No Symptoms Reported Hematologic/Lymphatic: No Symptoms Reported Past Ikwxjzm-Ctwyip-Vwtyzs Hx Patient Social History Tobacco Use?: No Use of E-Cig and/or Vaping dev: No Substance use?: No Alcohol Use?: No Immunizations Up To Date Tetanus Booster (TDap): Unknown First/Initial COVID19 Vaccinat: NOV 2020 Second COVID19 Vaccination Yg: DECEMBER 2020 Third COVID19 Vaccination Date: YES Seasonal Allergies Seasonal Allergies: Yes Past Medical History Surgery/Hospitalization HX: PMH: HIGH CHOL, HTN, DEPRESSION, GERD, CHRONIC UTI-SUPRAPUBIC CATH Surgeries: Yes (lesion from neck, suprapubic cath, foot) Bladder Surgery Respiratory: No Cardiac: Yes High Cholesterol, Hypertension Neurological: Yes (VERY POOR MEMORY) Reproductive Disorders: No Sexually Transmitted Disease: No HIV/AIDS: No Genitourinary: Yes (suprapubic catheter) Prostate Problems, Neurogenic Bladder Gastrointestinal: Yes Gastroesophageal Reflux, Chronic Constipation, Hemorrhoids, Polyps Musculoskeletal: No Endocrine: No HEENT: Yes (GLASSES) Double Vision Loss of Vision: Denies Hearing Impairment: Hard of Hearing, Bilateral Hearing Aide Cancer: Yes Skin Did You Recieve Any Treatments: Yes What Type of Treatment Did You: Surgical Intervention Psychosocial: Yes Anxiety, Depression Integumentary: Yes (skin ca; CANDIDAL INTERTRIGO) Blood Disorders: No Adverse Reaction/Blood Tranf: No (N/A) Family Medical History Reviewed Nursing Family Hx No Pertinent Family Hx PAST SURGICAL HISTORY: -SUPRAPUBIC CATHETER PLACEMENT FOR NEUROGENIC BLADDER AND BLADDER OUTLET OBSTRUCTION Physical Exam-Suspected Sepsis Physical Exam Vital Signs Vital Signs - First Documented 06/26/23 13:15 Temp 37.2 Pulse 108 Resp 16 B/P (MAP) 138/69 (92) Pulse Ox 95 O2 Delivery Room Air Capillary Refill : Height, Weight, BMI Height: 5'8.00" Weight: 155lbs. 0.0oz. 70.792729st; 34.00 BMI Method:Stated General Appearance: No Apparent Distress, WD/WN HEENT: PERRL/EOMI, Other (mucous membranes dry) Neck: Non Tender, Supple Respiratory: Lungs Clear, Normal Breath Sounds Cardiovascular: No Murmur, Tachycardia Gastrointestinal: Non Tender, Soft, Other (Suprapubic catheter in place) Back: Normal Inspection, No Vertebral Tenderness Extremity: Normal Range of Motion, Non Tender Neurologic/Psychiatric: Alert, Oriented x3 Skin: normal color, warm/dry Focused Exam Lactate Level 06/26/23 13:50: Lactic Acid Level 1.12 Lactic Acid Level Laboratory Tests Test 06/26/23 13:50 Lactic Acid Level 1.12 MMOL/L (0.50-2.00) Progress/Results/Core Measures Suspected Sepsis SIRS Temperature: Pulse: Respiratory Rate: Laboratory Tests 06/26/23 13:30: White Blood Count 11.4H Blood Pressure / Mean: 06/26/23 13:50: Lactic Acid Level 1.12 Laboratory Tests 06/26/23 13:30: Creatinine 1.50H, INR Comment 1.0, Platelet Count 293, Total Bilirubin 0.4 Results/Orders Lab Results Laboratory Tests Test 06/26/23 13:30 06/26/23 13:50 Range/Units White Blood Count 11.4 H 4.3-11.0 10^3/uL Red Blood Count 3.74 L 4.30-5.52 10^6/uL Hemoglobin 11.1 L 13.3-17.7 g/dL Hematocrit 33 L 40-54 % Mean Corpuscular Volume 89 80-99 fL Mean Corpuscular Hemoglobin 30 25-34 pg Mean Corpuscular Hemoglobin Concent 33 32-36 g/dL Red Cell Distribution Width 12.6 10.0-14.5 % Platelet Count 293 130-400 10^3/uL Mean Platelet Volume 9.8 9.0-12.2 fL Immature Granulocyte % (Auto) 0 % Neutrophils (%) (Auto) 76 H 42-75 % Lymphocytes (%) (Auto) 10 L 12-44 % Monocytes (%) (Auto) 9 0-12 % Eosinophils (%) (Auto) 4 0-10 % Basophils (%) (Auto) 1 0-10 % Neutrophils # (Auto) 8.7 H 1.8-7.8 10^3/uL Lymphocytes # (Auto) 1.1 1.0-4.0 10^3/uL Monocytes # (Auto) 1.0 0.0-1.0 10^3/uL Eosinophils # (Auto) 0.4 H 0.0-0.3 10^3/uL Basophils # (Auto) 0.1 0.0-0.1 10^3/uL Immature Granulocyte # (Auto) 0.0 0.0-0.1 10^3/uL Prothrombin Time 12.9 12.2-14.7 SEC INR Comment 1.0 0.8-1.4 Activated Partial Thromboplast Time 33 24-35 SEC Urine Color YELLOW Urine Clarity CLOUDY Urine pH 8.5 5-9 Urine Specific [place] 1.015 L 1.016-1.022 Urine Protein 1+ H NEGATIVE Urine Glucose (UA) NEGATIVE NEGATIVE Urine Ketones NEGATIVE NEGATIVE Urine Nitrite NEGATIVE NEGATIVE Urine Bilirubin NEGATIVE NEGATIVE Urine Urobilinogen 0.2 < = 1.0 MG/DL Urine Leukocyte Esterase 3+ H NEGATIVE Urine RBC (Auto) 3+ H NEGATIVE Urine RBC 5-10 H /HPF Urine WBC 10-25 H /HPF Urine Crystals PRESENT H /LPF Urine Triple Phosphate Crystals FEW H /LPF Urine Amorphous Sediment LARGE MAGALIE PHOSPHATE H /LPF Urine Bacteria MODERATE H /HPF Urine Casts NONE /LPF Urine Mucus NEGATIVE /LPF Urine Culture Indicated YES Sodium Level 134 L 135-145 MMOL/L Potassium Level 4.0 3.6-5.0 MMOL/L Chloride Level 102 98-107 MMOL/L Carbon Dioxide Level 22 21-32 MMOL/L Anion Gap 10 5-14 MMOL/L Blood Urea Nitrogen 21 H 7-18 MG/DL Creatinine 1.50 H 0.60-1.30 MG/DL Estimat Glomerular Filtration Rate 48 BUN/Creatinine Ratio 14 Glucose Level 116 H 70-105 MG/DL Calcium Level 8.6 8.5-10.1 MG/DL Corrected Calcium 8.8 8.5-10.1 MG/DL Total Bilirubin 0.4 0.1-1.0 MG/DL Aspartate Amino Transf (AST/SGOT) 16 5-34 U/L Alanine Aminotransferase (ALT/SGPT) 16 0-55 U/L Alkaline Phosphatase 87 40-136 U/L Total Protein 6.7 6.4-8.2 GM/DL Albumin 3.7 3.2-4.5 GM/DL Influenza Type A (RT-PCR) Not Detected Not Detecte Influenza Type B (RT-PCR) Not Detected Not Detecte SARS-CoV-2 RNA (RT-PCR) Not Detected Not Detecte Lactic Acid Level 1.12 0.50-2.00 MMOL/L My Orders Orders - GINNY CORTÉS MD Cbc With Automated Diff (06/26/23 13:29) Comprehensive Metabolic Panel (06/26/23 13:29) Blood Culture (06/26/23 13:29) Sputum Culture (06/26/23 13:29) Urinalysis (06/26/23 13:29) Urine Culture (06/26/23 13:29) Protime With Inr (06/26/23 13:29) Partial Thromboplastin Time (06/26/23 13:29) Chest 1 View, Ap/Pa Only (06/26/23 13:29) Ed Iv/Invasive Line Start (06/26/23 13:29) Vital Signs Adult Sepsis Patie Q15M (06/26/23 13:29) O2 (06/26/23 13:29) Remove Rings In Anticipation O (06/26/23 13:29) Lactic Acid Analyzer (06/26/23 13:29) Influenza A And B By Pcr (06/26/23 13:29) Ed Iv/Invasive Line Start (06/26/23 13:29) Ns Iv 500 Ml (Ns Iv 500 Ml) (06/26/23 13:30) Covid 19 Inhouse Test (06/26/23 13:29) Urine Culture (06/26/23 13:30) Medications Given in ED Current Medications Medications Dose Ordered Sig/Julee Route Start Time Stop Time Status Last Admin Dose Admin Sodium Chloride 500 ml @ 0 mls/hr Q0M ONCE IV 06/26/23 13:30 06/26/23 13:31 DC 06/26/23 13:53 500 MLS/HR Vital Signs/I&O 06/26/23 06/26/23 13:15 16:05 Temp 37.2 Pulse 108 102 Resp 16 18 B/P (MAP) 138/69 (92) 138/69 Pulse Ox 95 98 O2 Delivery Room Air Room Air Capillary Refill : Progress Note : Progress Note Seen and evaluated. Patient is ill-appearing. We will go ahead and check for COVID and flu and initiate sepsis work-up including IV, labs including CBC, CMP, blood cultures, lactic acid, UA and urine culture and chest x-ray. We will give normal saline 500 mL bolus. Monitor patient. Differential diagnosis includes URI including COVID and influenza, pneumonia, UTI, electrolyte abnormality, dehydration 1550: Findings consistent with urinary tract infection. He is doing better after IV fluids. COVID and influenza are negative. CBC shows slight elevation of white count and slightly low hemoglobin. CMP reviewed and shows mild elevation of serum creatinine but otherwise grossly normal. Lactic acid negative. Chest x-ray shows no acute infiltrate on my interpretation. I did review previous cultures. He has mixed bacterial UTIs noted. Cipro will likely be effective against his typical organisms. I did do short course of ciprofloxacin 250 mg (renal dosing) we will do outpatient. He was able to get up and walk on move around without dizziness or difficulty. He was comfortable with discharge home at this point. Discharged home with return precautions. Patient verbalized understanding instructions and agreement with plan. Diagnostic Imaging Diagonstic Imaging: Xray Plain Films/CT/US/NM/MRI: chest Comments [facility]. [place], [place] NAME: MARGARET LI [facility] REC#: [id number] PT STATUS: DEP ER : 1945 PHYSICIAN: GINNY CORTÉS MD ADMIT DATE: 06/26/23/ER Signed Date of Exam:06/26/23 CHEST 1 VIEW, AP/PA ONLY INDICATION: Cough and weakness. COMPARISON: Prior exam of 09/05/2021. FINDINGS: The heart size, mediastinal configuration and pulmonary vascularity are within normal limits. There is no pleural effusion, pneumothorax or pneumonia. The osseous structures are unremarkable. IMPRESSION: No acute cardiopulmonary abnormality. Dictated by: Dictated on workstation # [id number] Dict: 06/26/23 1429 Trans: 06/26/23 1701 PJE [id number] Interpreted by: KRISTINA VILLAGOMEZ MD Electronically signed by: KRISTINA VILLAGOMEZ MD 06/26/23 1701 Departure Impression Primary Impression: Urinary tract infection Qualified Codes: N30.00 - Acute cystitis without hematuria Disposition: 01 HOME, SELF-CARE Condition: Stable Departure-Patient Inst. Decision time for Depature: 15:50 Referrals: SHARON EARL DO (PCP/Family) Primary Care Physician Patient Instructions: Urinary Tract Infection, Adult (DC) Add. Discharge Instructions: All discharge instructions reviewed with patient and/or family. Voiced understanding. Take medications as directed. You should drink an adequate amount of fluids. Get some rest over the next few days. Try to eat a normal diet. Return for worse pain, fever, vomiting, weakness, breathing problems, dizziness or confusion or other concerns as needed. Scripts Ciprofloxacin HCl (Ciprofloxacin HCl) 250 Mg Tablet 250 MG PO BID for 5 Days, #10 TAB Prov: GINNY CORTÉS MD 06/26/23 GINNY CORTÉS MD Jun 26, 2023 13:36
[2023-06-26 13:55] LABS: BASOPHILS # (AUTO) 0.1 10^3/uL (0.0-0.1); BASOPHILS % (AUTO) 1 % (0-10); EOSINOPHILS # (AUTO) 0.4 10^3/uL (0.0-0.3); EOSINOPHILS % (AUTO) 4 % (0-10); HEMATOCRIT 33 % (40-54); HEMOGLOBIN 11.1 g/dL (13.3-17.7); LYMPHOCYTES # (AUTO) 1.1 10^3/uL (1.0-4.0); LYMPHOCYTES % (AUTO) 10 % (12-44); MEAN CORPUSCULAR HEMOGLOBIN 30 pg (25-34); MEAN CORPUSCULAR HGB CONC 33 g/dL (32-36); MEAN CORPUSCULAR VOLUME 89 fL (80-99); MEAN PLATELET VOLUME 9.8 fL (9.0-12.2); MONOCYTES % (AUTO) 9 % (0-12); NEUTROPHILS # (AUTO) 8.7 10^3/uL (1.8-7.8); NEUTROPHILS % (AUTO) 76 % (42-75); PLATELET COUNT 293 10^3/uL (130-400); WHITE BLOOD COUNT 11.4 10^3/uL (4.3-11.0)
[2023-06-26 14:00] LABS: ALBUMIN 3.7 GM/DL (3.2-4.5); PROTHROMBIN TIME PATIENT 12.9 SEC (12.2-14.7)
[2023-06-26 14:02] LABS: CALCIUM 8.6 MG/DL (8.5-10.1)
[2023-06-26 14:03] LABS: TOTAL PROTEIN 6.7 GM/DL (6.4-8.2)
[2023-06-26 14:05] LABS: BILIRUBIN,TOTAL 0.4 MG/DL (0.1-1.0)
[2023-06-26 14:06] LABS: CREATININE SERUM 1.5 MG/DL (0.60-1.30)
[2023-06-26 14:13] LABS: AMORPHOUS SEDIMENT,UR LARGE AMOR PHOSPHATE /LPF; BACTERIA,URINE MODERATE /HPF; BILIRUBIN,URINE NEGATIVE (NEGATIVE); CLARITY,URINE CLOUDY; COLOR,URINE YELLOW; GLUCOSE, URINE (UA) NEGATIVE (NEGATIVE); KETONES,URINE NEGATIVE (NEGATIVE); LEUKOCYTE ESTERASE ,URINE 3+ (NEGATIVE); NITRITE,URINE NEGATIVE (NEGATIVE); PH,URINE 8.5 (5-9); PROTEIN,URINE 1+ (NEGATIVE); TRIPLE PHOSPHATE CRYSTAL,UR FEW /LPF
--- NOTE | 2023-06-26 14:34 | Diagnostic Imaging Report ---
INDICATION: Cough and weakness. COMPARISON: Prior exam of 09/05/2021. FINDINGS: The heart size, mediastinal configuration and pulmonary vascularity are within normal limits. There is no pleural effusion, pneumothorax or pneumonia. The osseous structures are unremarkable. IMPRESSION: No acute cardiopulmonary abnormality. Dictated by: Dictated on workstation # [id number]
[2023-06-26] MEDS ORDERED: CIPR250T3 PO (15:51)
[2023-06-26 16:05] VITALS: BP 138/69
== END 2023-06-26 16:02 | disposition home or self-care (01) ==
LOC: EDUNIT# 13:13 → ER 13:15
DX: N39.0 Urinary tract infection, site not specified (principal); R94.4 Abnormal results of kidney function studies; Z20.822 Contact with and (suspected) exposure to COVID-19; Z88.0 Allergy status to penicillin
CPT/HCPCS: 36415; 71045; 80053; 81000; 83605; 85025; 85610; 85730; 87040; 87077; 87088; 87186; 87636

== ENCOUNTER 2023-07-05 13:30 | Emergency (ER) | payer MEDICARE, MEDICAID ==
[~2023-07-05] VITALS: Ht 172 cm; Wt 104.0 kg
[~2023-07-05 13:30] MED LIST changes: +CIPR250T3 PO
[2023-07-05] MEDS ORDERED: NS IV 500 ML 500 ML IV STA (13:58)
[2023-07-05 14:05] LABS: BASOPHILS # (AUTO) 0.1 10^3/uL (0.0-0.1); BASOPHILS % (AUTO) 1 % (0-10); EOSINOPHILS # (AUTO) 0.3 10^3/uL (0.0-0.3); EOSINOPHILS % (AUTO) 3 % (0-10); HEMATOCRIT 35 % (40-54); HEMOGLOBIN 11.4 g/dL (13.3-17.7); LYMPHOCYTES # (AUTO) 1.5 10^3/uL (1.0-4.0); LYMPHOCYTES % (AUTO) 13 % (12-44); MEAN CORPUSCULAR HEMOGLOBIN 30 pg (25-34); MEAN CORPUSCULAR HGB CONC 33 g/dL (32-36); MEAN CORPUSCULAR VOLUME 92 fL (80-99); MEAN PLATELET VOLUME 9.8 fL (9.0-12.2); MONOCYTES # (AUTO) 0.9 10^3/uL (0.0-1.0); MONOCYTES % (AUTO) 8 % (0-12); NEUTROPHILS # (AUTO) 8.1 10^3/uL (1.8-7.8); NEUTROPHILS % (AUTO) 75 % (42-75); PLATELET COUNT 337 10^3/uL (130-400); WHITE BLOOD COUNT 10.9 10^3/uL (4.3-11.0)
--- NOTE | 2023-07-05 14:05 | ED General ---
General Chief Complaint: Cardiac/General Problems Stated Complaint: RAPID HEART RATE/DIZZINESS Nursing Triage Note: PT AMB TO RM 10 WITH C/O DIZZINESS AND RAPID HEART RATE NOTICED ABOUT AN HOUR AGO Source of Information: Patient, Family Exam Limitations: No Limitations (DEYA GRIFFITH) History of Present Illness Date Seen by Provider: Jul 05, 2023 Time Seen by Provider: 13:59 Initial Comments 77yo M with PMH of kidney defect, suprapubic catheter, and HTN presents to the ED with c/o new onset lightheadedness and dizziness that started 4-5 days ago. Family is bedside. Pt states that symptoms seem to be present when transitioning from a sitting to standing position. Family states that pt has been "wobbly on feet" the past few days and has started to use a cane to walk. Pt had not previously needed any assistance walking. A couple of hours ago, pt states that he also started to experience a racing heartbeat that is present now. Pt was recently seen on 06/26 for an UTI and prescribed 5 days of abx. Pt states he finished his last dose today. Denies fevers, chills, KIM, recent falls, abd pain, decreased appetite, weakness, new/worsening cough, and CP. Timing/Duration: 4-5 Days Severity: Mild Associated Systoms: Denies Symptoms (DEYA GRIFFITH) Allergies and Home Medications Allergies Coded Allergies: Penicillins (Verified Allergy, Unknown, FROM CHILDHOOD, [birth year]) Reacted as a child per uncoded allergy Patient Home Medication List Home Medication List Reviewed: Yes (DEYA GRIFFITH) Home Medication List Reviewed: Yes (LETITIA LAMB MD) ALPRAZolam (ALPRAZolam) 0.25 Mg Tablet, 0.25 MG PO BID, (Reported) Entered as Reported by: SENIA LUNA on 09/06/21 1208 Amoxicillin/Potassium Clav (Augmentin 875-125 Tablet) 1 Each Tablet, 1 EACH PO BID Prescribed by: ZACH CALVIN on 09/07/21 1209 Atenolol (Atenolol) 25 Mg Tablet, 25 MG PO DAILY, (Reported) Entered as Reported by: SENIA LUNA on 09/06/21 1208 Atorvastatin Calcium (Atorvastatin Calcium) 80 Mg Tablet, 40 MG PO HS, (Reported) Entered as Reported by: SENIA LUNA on 09/06/21 1212 Bupropion HCl (Bupropion Xl) 150 Mg Tab.er.24h, 150 MG PO DAILY, (Reported) Entered as Reported by: SENIA LUNA on 09/06/21 1210 Cholecalciferol (Vitamin D3) (Vitamin D3) 25 Mcg Capsule, 50 MCG PO DAILY, (Reported) Entered as Reported by: SENIA LUNA on 09/06/21 1208 Ciprofloxacin HCl (Ciprofloxacin HCl) 250 Mg Tablet, 250 MG PO BID Prescribed by: GINNY CORTÉS on 06/26/23 1551 Ciprofloxacin HCl (Cipro) 250 Mg Tablet, 250 MG PO BID Prescribed by: LETITIA LAMB on 07/05/23 1622 Cyanocobalamin (Vitamin B-12) (Vitamin B-12) 500 Mcg Tablet, 1,000 MCG PO DAILY, (Reported) Entered as Reported by: SENIA LUNA on 11/27/20 1156 Donepezil HCl (Donepezil HCl) 10 Mg Tablet, 10 MG PO HS, (Reported) Entered as Reported by: SENIA LUNA on 09/06/21 1208 Famotidine (Famotidine) 40 Mg Tablet, 40 MG PO DAILY, (Reported) Entered as Reported by: SENIA LUNA on 09/06/21 1208 Ferrous Sulfate (Ferrous Sulfate) 325 Mg Tablet, 325 MG PO DAILY, (Reported) Entered as Reported by: SENIA LUNA on 09/06/21 1208 Fluticasone Propionate (Flonase Allergy Relief) 9.9 Ml [place].susp, 1-2 SPRAY NSEACH BID PRN for CONGESTION, (Reported) Entered as Reported by: SENIA LUNA on 11/27/20 1156 Magnesium Oxide (Magnesium Oxide) 420 Mg Tablet, 420 MG PO BID, (Reported) Entered as Reported by: ELLIS DIXON on 02/19/19 1347 Sertraline HCl (Sertraline HCl) 25 Mg Tablet, 25 MG PO DAILY, (Reported) Entered as Reported by: STEPHEN YAO on 08/21/21 0233 Sulfamethoxazole/Trimethoprim (Bactrim Ds Tablet) 1 Each Tablet, 1 EACH PO BID Prescribed by: LEONOR AUGUSTIN on 01/19/22 1216 Zinc (Zinc) 50 Mg Tablet, 50 MG PO DAILY, (Reported) Entered as Reported by: SENIA LUNA on 09/06/21 1209 Discontinued Medications Ciprofloxacin (Ciprofloxacin) 250 Mg/5 Ml [place]..rec, 250 MG PO BID Prescribed by: LETITIA LAMB on 07/05/23 1603 Review of Systems Review of Systems Constitutional: no symptoms reported EENTM: no symptoms reported Respiratory: no symptoms reported Cardiovascular: No chest pain; palpitations Gastrointestinal: no symptoms reported Genitourinary: no symptoms reported Musculoskeletal: no symptoms reported Skin: no symptoms reported Psychiatric/Neurological: No Symptoms Reported Hematologic/Lymphatic: No Symptoms Reported Immunological/Allergic: no symptoms reported (DEYA GRIFFITH) All Other Systems Reviewed Negative Unless Noted: Yes (DEYA GRIFFITH) Past Jccyash-Ghosjb-Punvoc Hx Patient Social History Tobacco Use?: No Use of E-Cig and/or Vaping dev: No Substance use?: No Alcohol Use?: No Pt feels they are or have been: No (DEYA GRIFFITH) Immunizations Up To Date Tetanus Booster (TDap): Unknown First/Initial COVID19 Vaccinat: NOV 2020 Second COVID19 Vaccination Yg: DECEMBER 2020 Third COVID19 Vaccination Date: YES (DEYA GRIFFITH) Seasonal Allergies Seasonal Allergies: Yes (DEYA GRIFFITH) Past Medical History Surgery/Hospitalization HX: PMH: HIGH CHOL, HTN, DEPRESSION, GERD, CHRONIC UTI-SUPRAPUBIC CATH Surgeries: Yes (lesion from neck, suprapubic cath, foot) Bladder Surgery Respiratory: Yes Pneumonia Cardiac: Yes High Cholesterol, Hypertension Neurological: Yes (VERY POOR MEMORY/CONFUSION) Reproductive Disorders: No Sexually Transmitted Disease: No HIV/AIDS: No Genitourinary: Yes (suprapubic catheter; Kidney defect) Prostate Problems, Neurogenic Bladder, UTI-Chronic Gastrointestinal: Yes Gastroesophageal Reflux, Chronic Constipation, Hemorrhoids, Polyps Musculoskeletal: No Endocrine: No HEENT: Yes (GLASSES) Double Vision Loss of Vision: Denies Hearing Impairment: Hard of Hearing, Bilateral Hearing Aide Cancer: Yes Skin Did You Recieve Any Treatments: Yes What Type of Treatment Did You: Surgical Intervention Psychosocial: Yes Anxiety, Depression Integumentary: Yes (skin ca; CANDIDAL INTERTRIGO) Blood Disorders: No Adverse Reaction/Blood Tranf: No (N/A) (DEYA GRIFFITH) Family Medical History No Pertinent Family Hx PAST SURGICAL HISTORY: -SUPRAPUBIC CATHETER PLACEMENT FOR NEUROGENIC BLADDER AND BLADDER OUTLET OBSTRUCTION (DEYA GRIFFITH) Physical Exam Vital Signs Vital Signs - First Documented 07/05/23 13:40 Temp 37.2 Pulse 100 Resp 15 B/P (MAP) 170/83 (112) Pulse Ox 95 O2 Delivery Room Air (LETITIA LAMB MD) Vital Signs Capillary Refill : (DEYA GRIFFITH) Height, Weight, BMI Height: 5'8.00" Weight: 155lbs. 0.0oz. [id number]; 35.00 BMI Method:Stated General Appearance: No Apparent Distress, WD/WN HEENT: PERRL/EOMI, TMs Normal Respiratory: Chest Non Tender, Lungs Clear, Normal Breath Sounds, No Accessory Muscle Use, No Respiratory Distress Cardiovascular: Regular Rate, Rhythm, No Murmur Gastrointestinal: Normal Bowel Sounds, Non Tender, Soft, Other (suprapubic catheter) Extremity: Normal Range of Motion, Non Tender, No Calf Tenderness Neurologic/Psychiatric: Alert, Oriented x3, No Motor/Sensory Deficits, Normal Mood/Affect Skin: Normal Color, Warm/Dry Lymphatic: No Adenopathy (DEYA GRIFFITH) Progress/Results/Core Measures Suspected Sepsis SIRS Temperature: Pulse: 100 Respiratory Rate: 15 Laboratory Tests 07/05/23 13:41: Blood Pressure 170 /83 Mean: 112 Laboratory Tests 07/05/23 13:41: (DEYA GRIFFITH) Results/Orders Lab Results Laboratory Tests Test 07/05/23 13:41 07/05/23 13:45 Range/Units White Blood Count 10.9 4.3-11.0 10^3/uL Red Blood Count 3.83 L 4.30-5.52 10^6/uL Hemoglobin 11.4 L 13.3-17.7 g/dL Hematocrit 35 L 40-54 % Mean Corpuscular Volume 92 80-99 fL Mean Corpuscular Hemoglobin 30 25-34 pg Mean Corpuscular Hemoglobin Concent 33 32-36 g/dL Red Cell Distribution Width 12.5 10.0-14.5 % Platelet Count 337 130-400 10^3/uL Mean Platelet Volume 9.8 9.0-12.2 fL Immature Granulocyte % (Auto) 0 % Neutrophils (%) (Auto) 75 42-75 % Lymphocytes (%) (Auto) 13 12-44 % Monocytes (%) (Auto) 8 0-12 % Eosinophils (%) (Auto) 3 0-10 % Basophils (%) (Auto) 1 0-10 % Neutrophils # (Auto) 8.1 H 1.8-7.8 10^3/uL Lymphocytes # (Auto) 1.5 1.0-4.0 10^3/uL Monocytes # (Auto) 0.9 0.0-1.0 10^3/uL Eosinophils # (Auto) 0.3 0.0-0.3 10^3/uL Basophils # (Auto) 0.1 0.0-0.1 10^3/uL Immature Granulocyte # (Auto) 0.0 0.0-0.1 10^3/uL Sodium Level 136 135-145 MMOL/L Potassium Level 4.0 3.6-5.0 MMOL/L Chloride Level 104 98-107 MMOL/L Carbon Dioxide Level 20 L 21-32 MMOL/L Anion Gap 12 5-14 MMOL/L Blood Urea Nitrogen 18 7-18 MG/DL Creatinine 1.46 H 0.60-1.30 MG/DL Estimat Glomerular Filtration Rate 50 BUN/Creatinine Ratio 12 Glucose Level 130 H 70-105 MG/DL Calcium Level 8.8 8.5-10.1 MG/DL Urine Color YELLOW Urine Clarity CLOUDY Urine pH >=9.0 5-9 Urine Specific [place] 1.015 L 1.016-1.022 Urine Protein 2+ H NEGATIVE Urine Glucose (UA) NEGATIVE NEGATIVE Urine Ketones NEGATIVE NEGATIVE Urine Nitrite POSITIVE H NEGATIVE Urine Bilirubin NEGATIVE NEGATIVE Urine Urobilinogen 0.2 < = 1.0 MG/DL Urine Leukocyte Esterase 3+ H NEGATIVE Urine RBC (Auto) TRACE H NEGATIVE Urine RBC RARE /HPF Urine WBC 5-10 H /HPF Urine Squamous Epithelial Cells NONE /HPF Urine Crystals PRESENT H /LPF Urine Triple Phosphate Crystals LARGE H /LPF Urine Bacteria NEGATIVE /HPF Urine Casts NONE /LPF Urine Mucus NEGATIVE /LPF Urine Culture Indicated YES (LETITIA LAMB MD) My Orders Orders - LETITIA LAMB MD Ekg Tracing (07/05/23 13:36) Ed Iv/Invasive Line Start (07/05/23 13:58) Cbc With Automated Diff (07/05/23 13:58) Basic Metabolic Panel (07/05/23 13:58) Ua Culture If Indicated (07/05/23 13:58) Ns Iv 500 Ml (Ns Iv 500 Ml) (07/05/23 13:58) Orthostatic Vital Signs (Adult (07/05/23 14:12) Urine Culture (07/05/23 13:45) Ciprofloxacin Tablet (Ciprofloxacin Tabl (07/05/23 15:41) Director Center Consult (07/05/23 15:47) (LETITIA LAMB MD) Vital Signs/I&O 07/05/23 07/05/23 07/05/23 13:40 15:49 16:08 Temp 37.2 37.2 Pulse 100 84 96 98 100 Resp 15 17 B/P (MAP) 170/83 (112) 169/75 (106) 177/84 182/110 (134) 177/84 (115) Pulse Ox 95 97 O2 Delivery Room Air Room Air (LETITIA LAMB MD) Vital Signs/I&O Capillary Refill : (DEYA GRIFFITH) Blood Pressure Mean: 112 Progress Note : Time: 15:49 Progress Note Patient seen and evaluated by me. I have reviewed the medical student's documen tation and agree. Evaluation today includes physical exam, CBC, BMP and UA. Pertinent physical exam findings include WDWN male in NAD. Heart is regular, Lungs are clear and abdominal exam is benign. He is a little confused as to direct questioning about his medication and health history but oriented x3. Ddx based on h&p includes UTI, dehydration, worsening dementia. Patients labs independently reviewed and interpreted by me. HIs CBC shows a normal WBC with normal H&H. Chem is normal with a slightly elevated creatinine of 1.46. Urine appears infected with pH >9, 2+ protein, + nitrite, 3+ LE and 5- 10 WBC per hpf. Patient had been treated for a UTI in the last 1-2 weeks, however in asking about medication dosing, he appears to have only taken his Cipro once a day. He lives alone and has no one to help him with medications. A neighbor had brought him in to the ER today. We did review with him proper dosing on his antibiotics and I did put in a note to the pharmacist to review this with him at prescription picking tech. I am very concerned about his ability to care for himself and put in a high school social science teacher consult. He mentioned at one point he doesn't really eat that much due to finances. Patient has no clinical or objective findings to warrant further workup or admission from the ER. Orthostatic VS were obtained and the patient had consistent BP and was not symptommatic. He had been given 1L NS in the ED as well as his first dose of Cipro (500mg) here as well. Return precautions provided in both verbal and w ritten format. (LETITIA LABM MD) Departure Impression Primary Impression: Urinary tract infection Qualified Codes: T83.510A - Infection and inflammatory reaction due to cystostomy catheter, initial encounter; N39.0 - Urinary tract infection, site not specified Additional Impression: Sinus tachycardia Disposition: 01 HOME, SELF-CARE Condition: Stable Departure-Patient Inst. Decision time for Depature: 15:54 (LETITIA LAMB MD) Referrals: SHARON EARL DO (PCP/Family) Primary Care Physician Patient Instructions: Urinary Tract Infection, Adult ED Add. Discharge Instructions: you will need to take the Cipro antibiotic - 250mg pills TWICE a day for a total of 10 days. Make sure you are eating every day and drink fluids to stay hydrated. Please call Dr Earl's office on Friday morning and schedule a follow up appointment for next week so that he can make sure you are feeling better. He also needs to do a medication review with you. If you have worsening dizziness, especially with nausea or pain - please come back to the Emergency Department for re-evaluation. Scripts Ciprofloxacin HCl (Cipro) 250 Mg Tablet 250 MG PO BID for 10 Days, #20 TAB Prov: LETITIA LAMB MD 07/05/23 Verification and Attestation of Medical Student E/M Service A medical student performed and documented this service in my presence. I reviewed and verified all information documented by the medical student and made modifications to such information, when appropriate. I personally performed the physical exam and medical decision making. Letitia Lamb, Jul 05, 2023,16:01 (LETITIA LAMB MD) Copy Copies To 1: SHARON EARL TAYLOR Jul 05, 2023 14:05 LETITIA LAMB MD Jul 05, 2023 15:47
[2023-07-05 14:10] LABS: CALCIUM 8.8 MG/DL (8.5-10.1)
[2023-07-05 14:14] LABS: CREATININE SERUM 1.46 MG/DL (0.60-1.30)
[2023-07-05 14:18] LABS: CLARITY,URINE CLOUDY; COLOR,URINE YELLOW; GLUCOSE, URINE (UA) NEGATIVE (NEGATIVE); PH,URINE >=9.0 (5-9); PROTEIN,URINE 2+ (NEGATIVE)
[2023-07-05 14:19] LABS: BACTERIA,URINE NEGATIVE /HPF; BILIRUBIN,URINE NEGATIVE (NEGATIVE); KETONES,URINE NEGATIVE (NEGATIVE); LEUKOCYTE ESTERASE ,URINE 3+ (NEGATIVE); NITRITE,URINE POSITIVE (NEGATIVE); RBC,URINE RARE /HPF; TRIPLE PHOSPHATE CRYSTAL,UR LARGE /LPF
[2023-07-05] MEDS ORDERED: CIPROFLOXACIN 500 MG TABLET PO STA (15:41)
[2023-07-05 15:49] VITALS: BP_SYST 169; BP_SYST 177; BP_SYST 182; BP_DIAS 110; BP_DIAS 75; BP_DIAS 84
[2023-07-05] MEDS ORDERED: CIPR250S4 PO (16:03)
[2023-07-05 16:08] VITALS: BP 177/84
[2023-07-05] MEDS ORDERED: CIPR-226 PO (16:22)
== END 2023-07-05 16:10 | disposition home or self-care (01) ==
LOC: EDUNIT# 13:30 → ER 13:32
DX: N39.0 Urinary tract infection, site not specified (principal); R00.0 Tachycardia, unspecified; Z88.0 Allergy status to penicillin
CPT/HCPCS: 36415; 80048; 81000; 85025; 87077; 87088; 93005

== ENCOUNTER 2023-07-23 14:53 | Observation (INO) | payer MEDICARE, MEDICAID ==
[~2023-07-23] VITALS: Ht 172 cm; Wt 104.8 kg
[~2023-07-23 14:53] MED LIST changes: +CIPR-226 PO; +CIPR250S4 PO; +DOXY100T2 PO; -MECL-149 PO; +MECL-291 PO
--- NOTE | 2023-07-23 16:13 | ED GI ---
General Chief Complaint: Abdominal/GI Problems Stated Complaint: DIARRHEA Nursing Triage Note: diarrhea since friday. states he has had approx 5 loose stools a day. denies abd pain or emesis. History of Present Illness Date Seen by Provider: Jul 23, 2023 Time Seen by Provider: 16:13 Initial Comments Patient is a 77-year-old male who presents to the emergency room with a chief complaint of diarrhea since Friday. No abdominal "pain" with the diarrhea. Patient is a very poor historian, seems very confused and is not able to immediately give me details of his most recent illness. He tells me that he wears depends on a daily basis and change them twice a day and that he is incontinent of stool. He states it is constantly leaking. He states it is brown, not black not grossly bloody. He tells me that he took 1 Imodium tablet on Friday but he could not understand the packaging and was not sure how to dose it so he has not taken any more. When symptoms started he was "dry heaving "/vomiting. That has not continued since Friday. He denies fevers or chills. No productive cough. He has had decreased appetite over the last 3 or 4 days. He complains also of feeling dizzy and off balance when he walks and that has been steadily progressing over the course of the last 6 months. He also tells me that he saw his primary care doctor, Dr. EARL on Friday. He did not mention the diarrhea. He also tells me that he has been out of his medications for about a week. He mentions that he feels like he should probably go to [facility] and have these refilled but he has not been able to make it. He denies any unusual foods. No sick contacts. He lives alone but has a neighbor/adult manager that helps him with cleaning his house. He did drive himself to the hospital today. I did see this patient approximately a month ago, I was concerned at that time for his wellbeing at home alone. He mentioned that he does not eat often because of finances and that he really cannot afford food. I am concerned and that he cannot tell me his medical history nor can he tell me any of his medications or what they are for. He does not appear to be able to handle his symptoms at home, he is uncertain how to take medications. He is let himself run out of his medications for the last week. I did do a chart review and was able to see that he takes medications for high blood pressure, high cholesterol as well as donepezil likely for dementia. It is quite concerning that he has run out of his medications and has not been able to refill them. Timing/Duration: 3-4 Days Severity/Quality: Moderate Activities at Onset: None Associated Symptoms: Nausea/Vomiting (x1 day), Other (dizziness; diarrhea) Allergies and Home Medications Allergies Coded Allergies: Penicillins (Verified Allergy, Unknown, FROM CHILDHOOD, 05/02/20) Reacted as a child per uncoded allergy Patient Home Medication List Home Medication List Reviewed: Yes ALPRAZolam (ALPRAZolam) 0.25 Mg Tablet, 0.25 MG PO BID, (Reported) Entered as Reported by: SENIA LUNA on 09/06/21 1208 Amoxicillin/Potassium Clav (Augmentin 875-125 Tablet) 1 Each Tablet, 1 EACH PO BID Prescribed by: ZACH CALVIN on 09/07/21 1209 Atenolol (Atenolol) 25 Mg Tablet, 25 MG PO DAILY, (Reported) Entered as Reported by: SENIA LUNA on 09/06/21 1208 Atorvastatin Calcium (Atorvastatin Calcium) 80 Mg Tablet, 40 MG PO HS, (Reported) Entered as Reported by: SENIA LUNA on 09/06/21 1212 Bupropion HCl (Bupropion Xl) 150 Mg Tab.er.24h, 150 MG PO DAILY, (Reported) Entered as Reported by: SENIA LUNA on 09/06/21 1210 Cholecalciferol (Vitamin D3) (Vitamin D3) 25 Mcg Capsule, 50 MCG PO DAILY, (Reported) Entered as Reported by: SENIA LUNA on 09/06/21 1208 Ciprofloxacin HCl (Ciprofloxacin HCl) 250 Mg Tablet, 250 MG PO BID Prescribed by: GINNY CORTÉS on 06/26/23 1551 Ciprofloxacin HCl (Cipro) 250 Mg Tablet, 250 MG PO BID Prescribed by: LETITIA MARIE on 07/05/23 1622 Cyanocobalamin (Vitamin B-12) (Vitamin B-12) 500 Mcg Tablet, 1,000 MCG PO DAILY, (Reported) Entered as Reported by: SENIA LUNA on 11/27/20 1156 Donepezil HCl (Donepezil HCl) 10 Mg Tablet, 10 MG PO HS, (Reported) Entered as Reported by: SENIA LUNA on 09/06/21 1208 Doxycycline Hyclate (Doxycycline Hyclate) 100 Mg Tablet, 100 MG PO BID Prescribed by: ULISES YODER on 07/15/23 0654 Famotidine (Famotidine) 40 Mg Tablet, 40 MG PO DAILY, (Reported) Entered as Reported by: SNEIA LUNA on 09/06/21 1208 Ferrous Sulfate (Ferrous Sulfate) 325 Mg Tablet, 325 MG PO DAILY, (Reported) Entered as Reported by: SENIA LUNA on 09/06/21 1208 Fluticasone Propionate (Flonase Allergy Relief) 9.9 Ml [place].susp, 1-2 SPRAY NSEACH BID PRN for CONGESTION, (Reported) Entered as Reported by: SENIA LUNA on 11/27/20 1156 Magnesium Oxide (Magnesium Oxide) 420 Mg Tablet, 420 MG PO BID, (Reported) Entered as Reported by: ELLIS DIXON on 02/19/19 1347 Sertraline HCl (Sertraline HCl) 25 Mg Tablet, 25 MG PO DAILY, (Reported) Entered as Reported by: STEPHEN YAO on 08/21/21 0233 Sulfamethoxazole/Trimethoprim (Bactrim Ds Tablet) 1 Each Tablet, 1 EACH PO BID Prescribed by: LEONOR AUGUSTIN on 01/19/22 1216 Zinc (Zinc) 50 Mg Tablet, 50 MG PO DAILY, (Reported) Entered as Reported by: SENIA LUNA on 09/06/21 1209 Review of Systems Review of Systems Constitutional: see HPI EENTM: Other (dizziness) Respiratory: No Symptoms Reported Cardiovascular: No Symptoms Reported Gastrointestinal: Diarrhea, Vomiting Genitourinary: No Symptoms Reported ((suprapubic catheter)) Musculoskeletal: no symptoms reported Skin: no symptoms reported Psychiatric/Neurological: No Symptoms Reported All Other Systems Reviewed Negative Unless Noted: Yes Past Vfbtgib-Vitoki-Hasbit Hx Patient Social History Tobacco Use?: No Use of E-Cig and/or Vaping dev: No Substance use?: No Alcohol Use?: No Pt feels they are or have been: No Immunizations Up To Date Tetanus Booster (TDap): Unknown First/Initial COVID19 Vaccinat: NOV 2020 Second COVID19 Vaccination Yg: DECEMBER 2020 Third COVID19 Vaccination Date: YES Seasonal Allergies Seasonal Allergies: Yes Past Medical History Surgery/Hospitalization HX: PMH: HIGH CHOL, HTN, DEPRESSION, GERD, CHRONIC UTI-SUPRAPUBIC CATH Surgeries: Yes (lesion from neck, suprapubic cath, foot) Bladder Surgery Respiratory: Yes Pneumonia Cardiac: Yes High Cholesterol, Hypertension Neurological: Yes (VERY POOR MEMORY/CONFUSION) Reproductive Disorders: No Sexually Transmitted Disease: No HIV/AIDS: No Genitourinary: Yes (suprapubic catheter; Kidney defect) Prostate Problems, Neurogenic Bladder, UTI-Chronic Gastrointestinal: Yes Gastroesophageal Reflux, Chronic Constipation, Hemorrhoids, Polyps Musculoskeletal: No Endocrine: No HEENT: Yes (GLASSES) Double Vision Loss of Vision: Denies Hearing Impairment: Hard of Hearing, Bilateral Hearing Aide Cancer: Yes Skin Did You Recieve Any Treatments: Yes What Type of Treatment Did You: Surgical Intervention Psychosocial: Yes Anxiety, Depression Integumentary: Yes (skin ca; CANDIDAL INTERTRIGO) Blood Disorders: No Adverse Reaction/Blood Tranf: No (N/A) Family Medical History No Pertinent Family Hx PAST SURGICAL HISTORY: -SUPRAPUBIC CATHETER PLACEMENT FOR NEUROGENIC BLADDER AND BLADDER OUTLET OBSTRUCTION Physical Exam Vital Signs Vital Signs - First Documented 07/23/23 15:04 Temp 36.8 Pulse 98 Resp 18 B/P (MAP) 191/95 (127) Pulse Ox 98 O2 Delivery Room Air Capillary Refill : Less Than 3 Seconds Height/Weight/BMI Height: 5'8.00" Weight: 155lbs. 0.0oz. 70.965634cm; 34.00 BMI Method:Stated General Appearance: WD/WN, no apparent distress, obese HEENT: PERRL/EOMI Neck: full range of motion Respiratory: lungs clear, normal breath sounds, no respiratory distress, no accessory muscle use Cardiovascular: regular rate, rhythm Gastrointestinal: normal bowel sounds, non tender, soft Extremities: normal range of motion Neurologic/Psychiatric: outlet manager II-XII nml as tested, no motor/sensory deficits, alert, normal mood/affect, other (pleasantly confused) Skin: normal color, warm/dry Progress/Results/Core Measures Results/Orders Lab Results Laboratory Tests Test 07/23/23 16:45 Range/Units White Blood Count 12.7 H 4.3-11.0 10^3/uL Red Blood Count 3.76 L 4.30-5.52 10^6/uL Hemoglobin 11.2 L 13.3-17.7 g/dL Hematocrit 35 L 40-54 % Mean Corpuscular Volume 94 80-99 fL Mean Corpuscular Hemoglobin 30 25-34 pg Mean Corpuscular Hemoglobin Concent 32 32-36 g/dL Red Cell Distribution Width 12.4 10.0-14.5 % Platelet Count 230 130-400 10^3/uL Mean Platelet Volume 9.6 9.0-12.2 fL Immature Granulocyte % (Auto) 0 % Neutrophils (%) (Auto) 78 H 42-75 % Lymphocytes (%) (Auto) 9 L 12-44 % Monocytes (%) (Auto) 8 0-12 % Eosinophils (%) (Auto) 4 0-10 % Basophils (%) (Auto) 1 0-10 % Neutrophils # (Auto) 9.9 H 1.8-7.8 10^3/uL Lymphocytes # (Auto) 1.2 1.0-4.0 10^3/uL Monocytes # (Auto) 1.0 0.0-1.0 10^3/uL Eosinophils # (Auto) 0.5 H 0.0-0.3 10^3/uL Basophils # (Auto) 0.1 0.0-0.1 10^3/uL Immature Granulocyte # (Auto) 0.1 0.0-0.1 10^3/uL Sodium Level 135 135-145 MMOL/L Potassium Level 3.8 3.6-5.0 MMOL/L Chloride Level 103 98-107 MMOL/L Carbon Dioxide Level 20 L 21-32 MMOL/L Anion Gap 12 5-14 MMOL/L Blood Urea Nitrogen 19 H 7-18 MG/DL Creatinine 1.50 H 0.60-1.30 MG/DL Estimat Glomerular Filtration Rate 48 BUN/Creatinine Ratio 13 Glucose Level 106 H 70-105 MG/DL Calcium Level 8.6 8.5-10.1 MG/DL My Orders Orders - LETITIA MARIE MD Ed Iv/Invasive Line Start (07/23/23 16:32) Cbc And Automated Diff (07/23/23 16:32) Basic Metabolic Panel (07/23/23 16:32) Lactated Ringers 1,000 Ml (Lactated Ring (07/23/23 17:15) Ua Culture If Indicated (07/23/23 18:31) Stool Culture (07/23/23 18:31) C Difficile Ag + Toxin A/B. (07/23/23 18:31) Vital Signs/I&O 07/23/23 15:04 Temp 36.8 Pulse 98 Resp 18 B/P (MAP) 191/95 (127) Pulse Ox 98 O2 Delivery Room Air Blood Pressure Mean: 127 Progress Progress Note : Progress Note Patient seen and evaluated by me. Evaluation today includes physical exam, CBC, chemistry, urinalysis. Pertinent physical exam findings well-developed well- nourished 77-year-old male with no concerning physical exam findings, heart is regular, lungs are clear. Abdomen is soft with normal to hyperactive bowel sounds. He is very confused, does not seem to be able to remember his medications or medical history. Cannot really delineate the details of the last 5 days other than diarrhea. Differential diagnosis includes dehydration, electrolyte imbalance, infectious diarrhea, C. difficile, worsening dementia, inability to care for himself at home. Patient's labs independently reviewed and interpreted by me. His CBC shows a white count slightly elevated at 12.7 with hemoglobin 11.2, hematocrit of 35, platelet count of 230. His chemistry is remarkable for elevated BUN and creatinine of 19 and 1.5 which is at his baseline. Urinalysis is pending, will add stool panel. I did discuss patient patient's case with hospice social worker, Kajal. She states she will see the patient in the morning and make a plan for safety for home. Admit orders written. Departure Impression Primary Impression: Diarrhea Qualified Codes: R19.7 - Diarrhea, unspecified Additional Impressions: Dehydration Advancing dementia Disposition: ADMITTED INPATIENT Condition: Stable Admissions Decision to Admit Reason: Admit from ER (General) Decision to Admit/Date: Jul 23, 2023 Time/Decision to Admit Time: 18:43 Departure-Patient Inst. Referrals: SHARON EARL DO (PCP/Family) Primary Care Physician LETITIA MARIE MD Jul 23, 2023 16:13
[2023-07-23 16:50] LABS: BASOPHILS # (AUTO) 0.1 10^3/uL (0.0-0.1); BASOPHILS % (AUTO) 1 % (0-10); EOSINOPHILS # (AUTO) 0.5 10^3/uL (0.0-0.3); EOSINOPHILS % (AUTO) 4 % (0-10); HEMATOCRIT 35 % (40-54); HEMOGLOBIN 11.2 g/dL (13.3-17.7); LYMPHOCYTES # (AUTO) 1.2 10^3/uL (1.0-4.0); LYMPHOCYTES % (AUTO) 9 % (12-44); MEAN CORPUSCULAR HEMOGLOBIN 30 pg (25-34); MEAN CORPUSCULAR HGB CONC 32 g/dL (32-36); MEAN CORPUSCULAR VOLUME 94 fL (80-99); MEAN PLATELET VOLUME 9.6 fL (9.0-12.2); MONOCYTES % (AUTO) 8 % (0-12); NEUTROPHILS # (AUTO) 9.9 10^3/uL (1.8-7.8); NEUTROPHILS % (AUTO) 78 % (42-75); PLATELET COUNT 230 10^3/uL (130-400); WHITE BLOOD COUNT 12.7 10^3/uL (4.3-11.0)
[2023-07-23 17:06] LABS: POTASSIUM 3.8 MMOL/L (3.6-5.0)
[2023-07-23 17:07] LABS: CALCIUM 8.6 MG/DL (8.5-10.1)
[2023-07-23 17:11] LABS: CREATININE SERUM 1.5 MG/DL (0.60-1.30)
[2023-07-23] MEDS ORDERED: LACTATED RINGERS 1,000 ML 1,000 ML IV SCH (17:15)
[2023-07-23 19:16] LABS: BILIRUBIN,URINE NEGATIVE (NEGATIVE); CLARITY,URINE CLEAR; COLOR,URINE YELLOW; GLUCOSE, URINE (UA) NEGATIVE (NEGATIVE); KETONES,URINE NEGATIVE (NEGATIVE); NITRITE,URINE NEGATIVE (NEGATIVE); PROTEIN,URINE 1+ (NEGATIVE)
[2023-07-23 19:17] LABS: BACTERIA,URINE MODERATE /HPF; LEUKOCYTE ESTERASE ,URINE 1+ (NEGATIVE); TRIPLE PHOSPHATE CRYSTAL,UR LARGE /LPF
[2023-07-23 20:22] VITALS: BP 175/70
[2023-07-23] MEDS: NS IV 1000 ML 1,000 ML IV SCH (20:25)
[2023-07-23] MEDS: DONEPEZIL 10 MG TABLET PO SCH (20:25)
[2023-07-23 23:30] VITALS: BP 171/79
[2023-07-24 04:36] VITALS: BP 172/79
[2023-07-24] MEDS: NS IV 1000 ML 1,000 ML IV SCH ×2 (06:30→16:22)
[2023-07-24 07:32] VITALS: BP 168/80
[2023-07-24] MEDS: SERTRALINE 50 MG TABLET PO SCH (08:14)
[2023-07-24] MEDS: FAMOTIDINE 20 MG TABLET PO SCH (08:15)
[2023-07-24] MEDS: ATENOLOL 25 MG TABLET PO SCH (08:15)
[2023-07-24 08:31] LABS: HEMOGLOBIN 11.7 g/dL (13.3-17.7); MEAN PLATELET VOLUME 9.9 fL (9.0-12.2)
[2023-07-24 08:33] LABS: CALCIUM 8.3 MG/DL (8.5-10.1); CREATININE SERUM 1.16 MG/DL (0.60-1.30); POTASSIUM 4.3 MMOL/L (3.6-5.0)
[2023-07-24] MEDS ORDERED: cefTRIAXone IV/IM 1,000 MG in NS (IVPB) 50 ML 50 ML IV ONE (10:30)
--- NOTE | 2023-07-24 11:25 | History & Physical-Hospitalist ---
OLAMIDE HENRY 07/24/23 1125: History of Present Illness HPI/Chief Complaint 77M with dementia and a suprapubic catheter presents with non-bloody, non-black diarrhea since Friday and balance issues upon standing for the past 4-5 months. The patient says he ate Rib Crib on Friday with his niece but was not very hungry so brought his food back home with him. Then he proceeded to have an off feeling in his stomach and spent Friday dry heaving and having diarrhea. The diarrhea has persisted until today but the dry heaving has ceased. He wears depends. He claims he typically only gets diarrhea once a year. A UA was done that shows a UTI with a gram negative marjorie. He has been eating a normal diet today, is non-febrile, denies N/V, denies abd pain. Source: patient Exam Limitations: clinical condition Date Seen 07/24/23 Attending Physician Ben Enriquez DO PCP Admitting Physician: Alex Jauregui MD Attending Physician: Alex Jauregui MD Referring Physician Date of Admission Jul 23, 2023 at 19:29 Home Medications & Allergies Home Medications Reviewed patient Home Medication Reconciliation performed by pharmacy medication reconciliations injection maintenance technician and/or nursing. Patients Allergies have been reviewed. Allergies Allergies Coded Allergies Penicillins (Verified Allergy, Unknown, FROM CHILDHOOD, 05/02/20) Reacted as a child per uncoded allergy Past Nihrceq-Xjycgq-Dpkndb Hx Patient Social History Tobacco Use?: No Smoking Status: Never a Smoker Use of E-Cig and/or Vaping dev: No Substance use?: No Alcohol Use?: No Pt feels they are or have been: No Immunizations Up To Date Date of Influenza Vaccine: Jul 08, 2023 First/Initial COVID19 Vaccinat: NOV 2020 Second COVID19 Vaccination Yg: DECEMBER 2020 Tetanus Booster (TDap): More Than 5 Years Hepatitis A: No Hepatitis B: No Date of Pneumonia Vaccine: Jun 23, 2012 Seasonal Allergies Seasonal Allergies: Yes Current Status Advance Directives: No Communicates: Verbally Primary Language: Panamanian Preferred Spoken Language: Panamanian Is interpretation needed?: No Sensory deficits: Vision impairment, Hearing impairment Implanted or Applied Medical D: None Past Medical History Surgeries: Bladder Surgery Pneumonia High Cholesterol, Hypertension Sexually Transmitted Disease: No HIV/AIDS: No Prostate Problems, Neurogenic Bladder, UTI-Chronic Gastroesophageal Reflux, Chronic Constipation, Hemorrhoids, Polyps Double Vision Loss of Vision: Denies Hearing Impairment: Hard of Hearing, Bilateral Hearing Aide Skin Did You Recieve Any Treatments: Yes What Type of Treatment Did You: Surgical Intervention Anxiety, Depression Blood Disorders: No Adverse Reaction/Blood Tranf: No (N/A) Family Medical History Cancer (dad, lung), Psychiatric Problems (mom, alzheimer's) PAST SURGICAL HISTORY: -SUPRAPUBIC CATHETER PLACEMENT FOR NEUROGENIC BLADDER AND BLADDER OUTLET OBSTRUCTION Review of Systems Constitutional: No chills, No fever EENTM: hearing loss; No blurred vision, No double vision Respiratory: cough, short of breath (occasional) Cardiovascular: No chest pain, No palpitations Gastrointestinal: No abdominal pain; diarrhea; No hematemesis, No melena Genitourinary: No hematuria; other (suprapubic catheter) Musculoskeletal: no symptoms reported Skin: no symptoms reported Psychiatric/Neurological: Anxiety; Denies Headache Physical Exam Physical Exam Vital Signs Vital Signs - First Documented 07/23/23 15:04 Temp 36.8 Pulse 98 Resp 18 B/P (MAP) 191/95 (127) Pulse Ox 98 O2 Delivery Room Air Capillary Refill : Less Than 3 Seconds Height, Weight, BMI Height: 5'8.00" Weight: 155lbs. 0.0oz. 70.750071ri; 35.42 BMI Method:Stated General Appearance: No Apparent Distress, WD/WN HEENT: PERRL/EOMI; No Scleral Icterus (L), No Scleral Icterus (R) Neck: Non Tender; No JVD Respiratory: Lungs Clear, Normal Breath Sounds, No Accessory Muscle Use, No Respiratory Distress Cardiovascular: Regular Rate, Rhythm, No Edema, No Gallop, No JVD, No Murmur Gastrointestinal: Non Tender, Soft; No Distended, No Guarding Neurologic/Psychiatric: Alert, Disoriented Skin: Normal Color, Warm/Dry Results Results/Procedures Labs Laboratory Tests 07/23/23 16:45 07/24/23 08:03 Patient resulted labs reviewed. Assessment/Plan Assessment and Plan Infectious diarrhea IV fluids Imodium (pt in diaper, prevent sitting in stool) Dehydration Resolved IV fluids Catheter-induced UTI Continue Cefepime Acute on chronic kidney disease Resolved IV fluids Orthostatic hypotension IV fluids Dementia Donepezil Consult social services coordinator, PT, OT, speech therapy HTN Continue Atenolol 25mg PO Hyperlipidemia Continue Atorvastatin 40mg PO Anxiety Continue Sertraline 25mg PO ALEX JAUREGUI MD 07/24/23 1256: Assessment/Plan Admission Diagnosis CHANDRAKANT due to dehydration and diarrhea UTI Admission Status: Observation Assessment and Plan Pt reports doing ok. Social work in the room when I visited him and they are discussing discharge options. He thinks he is doing well at home and able to care for himself until her got this diarrheal illness. Discussed his labs, UTI, and diarrhea and need to work with PT and make sure he is able to get around ok and clean himself up before discharge. He has no complaints and only question is about when he can go home. Supervisory-Addendum Brief Verification & Attestation Participated in pt care: history, MDM, physical Personally performed: exam, history, MDM, supervision of care Care discussed with: Medical Student Procedures: n/a Results interpretation: Verified all documentation Verification and Attestation of Medical Student E/M Service A medical student performed and documented this service in my presence. I reviewed and verified all information documented by the medical student and made modifications to such information, when appropriate. I personally performed the physical exam and medical decision making. Alex Jauregui, Jul 24, 2023,12:52 OLAMIDE HENRY Jul 24, 2023 11:25 ALEX JAUREGUI MD Jul 24, 2023 12:56
[2023-07-24 11:26] VITALS: BP 167/81
[2023-07-24] MEDS ORDERED: DOCUSATE SODIUM 100 MG CAPSULE PO PRN (13:00)
[2023-07-24] MEDS ORDERED: BISACODYL 5 MG TABLET PO PRN (13:00)
--- NOTE | 2023-07-24 13:21 | ST Cognitive Linguistic Eval ---
Speech Evaluation-General Medical Diagnosis CHANDRAKANT and UTI Onset Date: Jul 24, 2023 Therapy Diagnosis Therapy Diagnosis: Neurocognitive Impairment Precautions Precautions: Fall Precautions/Isolations: Fall Prevention, Standard Precautions Referral Referring Physician: Dr. Jauregui Reason for Referral: Evaluation/Treatment Medical History Pertinent Medical History: HTN Reviewed History: Yes Speech PLF-Current Status Prior Level of Function The patient's prior cognitive function is unknown to this clinician. Subjective The patient was seated upright in his recliner, awake and alert, upon entrance to his room by the clinician. The patient greeted the clinician appropriately and was agreeable to participation in the cognitive linguistic assessment. Language Eval: Auditory Comprehends Simple Yes/No Ques: Functional Follows 1-Step Commands: Functional Follows General Conversations: Mild (Repetition intermittently required for improved comprehension however may be secondary to reduced hearing ability.) Language Eval: Verbal Language Completes Spontaneous Greeting: Functional Produces Auto, Serial Info: Functional Word Finding: Moderate Requests Basic Needs: Functional States Basic Personal Info: Functional Cognitive Patient Orientation The patient was independently oriented to self, month, day of the week, and year. Objective Cognitive Domain Attention: Mild Memory: Moderate Problem Solving: Moderate Executive Functions: Moderate Composite Severity Rating: Moderate (Mild to moderate.) Clock Drawing Severity Rating: WNL Objective Formal/Standardized Tests [facility] Mental Status Exam (UMS) Results The patient demonstrated a result of +19/30 on the SLUMS correlating to a score of "dementia" (1-20=dementia). Oral Motor/Speech Production While the patient does display imprecise articulation, true dysarthria or apraxia of speech are not present. The patient does remain 100% intelligible in known and unknown contexts. Impression The patient demonstrated a mild to moderate cognitive linguistic impairment, most notably in the areas of memory, problem solving, and word finding. As the patient does live alone and continues to drive, the clinician does have concern for the patient's safety. Additionally, the patient frequently repeats information to the clinician which was previously shared (his home location, where he was born, etc.) which does correlate closely to a diagnosis of dementia. The clinician will focus skilled therapy on functional safety information (emergency procedures, calling for help, organizing medicine) for safe return to the least restrictive environment however does feel the patient needs a level of supervision following discharge for medical, transportation, and emergency needs. Speech Short Term Goals Short Term Goals Short Term Goals 1. The patient will demonstrate memory strategies (external) with 75% accuracy a nd mild clinician verbal cueing. Time Frame-STG: Five Days. Speech Fdc Goals Preparation Operator Goals 1. The patient will display improved cognitive linguistic skills for safe discharge to the least restrictive environment. Time Frame: One Week. Speech-Plan Treatment Plan Speech Therapy Treatment Plan: Continue Plan of Care Treatment Duration: Jul 24, 2023 Frequency: 2 times per week Estimated Hrs Per Day: .25 hour per day Rehab Potential: Fair Pt/Family Agrees to Plan: Yes Safety Risks/Education Teaching Recipient: Patient Teaching Methods: Discussion Response to Teaching: Reinforcement Needed Education Topics Provided: Results, Recommendations, Plan of Care Time Speech Therapy Time In: 11:20 Speech Therapy Time Out: 11:40 DATE: Jul 24, 2023 Total Billed Time: 20 Billed Treatment Time 1, LILIBETH ESPINOZA [facility] Jul 24, 2023 13:21
--- NOTE | 2023-07-24 14:09 | Occupational Therapy Eval ---
OT Evaluation-General/PLF Medical Diagnosis Admission Date Jul 23, 2023 at 19:29 Medical Diagnosis: CHANDRAKANT and UTI Onset Date: Jul 24, 2023 Therapy Diagnosis Therapy Diagnosis: weakness Height/Weight Height (Feet): 5 Height (Inches): 8.00 Weight (Pounds): 155 Weight (Ounces): 0.0 Precautions Precautions/Isolations: Fall Prevention, Standard Precautions Weight Bear Status Weight Bearing Restriction: Full Weight Bearing Referral Referral Reason: Evaluation/Treatment Medical History Pertinent Medical History: HTN Reviewed History: Yes Social History Home: Single Level Current Living Status: Alone Entry Into Home: Level Entry [place] ADL-Prior Level of Function SCALE: Activities may be completed with or without assistive devices. 5-Hnwgadwczo-jisakik completes the activity by him/herself with no assistance from a helper. 5-Set-up or Clean-up Assistance-helper sets up or cleans up; patient completes activity. [place] assists only prior to or following the activity. 4-Supervision or Touching Assistance-helper provides verbal cues and/or touching/steadying and/or contact guard assistance as patient completes activity. Assistance may be provided throughout the activity or intermittently. 3-Partial/Moderate Assistance-helper does LESS THAN HALF the effort. [place] lifts, holds or supports trunk or limbs, but provides less than half the effort. 2-Substantial/Maximal Assistance-helper does MORE THAN HALF the effort. [place] lifts or holds trunk or limbs and provides more than half the effort. 2-Fwiuahhez-gamksb does ALL the effort. Patient does none of the effort to complete the activity. Or, the assistance of 2 or more helpers is required for the patient to complete the activity. If activity was not attempted, code reason: 7-Patient Refused. 9-Not Applicable-not attempted and the patient did not perform the activity before the current illness, exacerbation or injury. 10-Not Attempted due to Environmental Limitations-(lack of equipment, weather restraints, etc.). 88-Not Attempted due to Medical Conditions or Safety Concerns. ADL PLOF Comments Use of cane outside of apartment, ADA accessible Self Care: Independent Functional Cognition: Independent DME/Equipment: Bath Chair, Grab Bars, Shower Drive Self: Yes OT Current Status Subjective Agreeable to OT, ate lunch but now regrets it. Pain Numeric Pain Scale: 4 Location Body Site: Abdomen Mental Status/Objective Patient Orientation: Person, Place, Time, Situation Attachments: [place] Catheter, IV Current Glasses/Contacts: Yes Hearing Aids: No Dentures/Partials: No Hand Dominance: Right Upper Extremity ROM BUE ROM WFLS Upper Extremity Coordination INTACT Upper Extremity Sensation INTACT Upper Extremity Strength BUE WFLS age approppriate, ADL-Treatment Eating (QC): 6 Oral Hygiene (QC): 5 Shower/Bathe Self (QC): 7 Upper Body Dressing (QC): 4 (IV) Lower Body Dressing (QC): 4 (aviles assist) On/Off Footwear (QC): 5 Toileting Hygiene (QC): 7 Education OT Patient Education: Progress toward Goal/Update tx plan, Purpose of tx/functional activities, Reviewed precautions, Rehab process, Safety issues, Transfer techniques Teaching Recipient: Patient Teaching Methods: Demonstration, Discussion Response to Teaching: Verbalize Understanding OT Skilled Nursing Goals Skilled Nursing Goals 1=Demonstrate adherence to instructed precautions during ADL tasks. 2=Patient will verbalize/demonstrate understanding of assistive devices/modifications for ADL. 3=Patient will improve strength/tolerance for activity to enable patient to perform ADL's. OT Education/Plan Problem List/Assessment Assessment: Decreased Activ Tolerance Discharge Recommendations Plan/Recommendations: Discontinue OT Treatment Plan/Plan of Care Treatment,Training & Education: Yes Patient would benefit from OT for education, treatment and training to promote independence in ADL's, mobility, safety and/or upper extremity function for ADL's. Plan of Care: OTHER (EVAL ONLY) Treatment Duration: Jul 24, 2023 Frequency: 1 time per week Estimated Hrs Per Day: .25 hour per day Rehab Potential: Good Time Start Time: 12:30 Stop Time: 12:45 DATE: Jul 24, 2023 Total Time Billed (hr/min): 15 Billed Treatment Time EVL 15 min CHEMA PEARL OT Jul 24, 2023 14:09
--- NOTE | 2023-07-24 14:24 | Physical Therapy Evaluation ---
PT Evaluation-General Medical Diagnosis Admission Date Jul 23, 2023 at 19:29 Medical Diagnosis: CHANDRAKANT and UTI Onset Date: Jul 24, 2023 Therapy Diagnosis Therapy Diagnosis: Gait deficit, strength deficit Height/Weight Height (Feet): 5 Height (Inches): 8.00 Weight (Pounds): 155 Weight (Ounces): 0.0 Precautions Precautions/Isolations: Fall Prevention, Standard Precautions Weight Bear Status Right Lower Extremity: Right Full Weight Bearing Left Lower Extremity: Left Full Weight Bearing Referral Physician: Dr. Jauregui Reason for Referral: Evaluation/Treatment Medical History Pertinent Medical History: HTN Reviewed History: Yes Social History Home: Single Level Current Living Status: Alone Entry Into Home: Level Entry Prior Prior Level of Function SCALE: Activities may be completed with or without assistive devices. 3-Gilmgvwtkh-zuckagu completes the activity by him/herself with no assistance from a helper. 5-Set-up or Clean-up Assistance-helper sets up or cleans up; patient completes a ctivity. [place] assists only prior to or following the activity. 4-Supervision or Touching Assistance-helper provides verbal cues and/or touching/steadying and/or contact guard assistance as patient completes activity. Assistance may be provided throughout the activity or intermittently. 3-Partial/Moderate Assistance-helper does LESS THAN HALF the effort. [place] lifts, holds or supports trunk or limbs, but provides less than half the effort. 2-Substantial/Maximal Assistance-helper does MORE THAN HALF the effort. [place] lifts or holds trunk or limbs and provides more than half the effort. 0-Nfdiklzte-gdxpkn does ALL the effort. Patient does none of the effort to complete the activity. Or, the assistance of 2 or more helpers is required for the patient to complete the activity. If activity was not attempted, code reason: 7-Patient Refused. 9-Not Applicable-not attempted and the patient did not perform the activity before the current illness, exacerbation or injury. 10-Not Attempted due to Environmental Limitations-(lack of equipment, weather restraints, etc.). 88-Not Attempted due to Medical Conditions or Safety Concerns. Bed Mobility: 6 Transfers (B,C,W/C): 6 Gait: 6 Stairs: 6 Indoor Mobility (Ambulation): Independent Stairs: Independent Prior Devices Use: None Reports he has a cane and FWW at home. PT Evaluation-Current Subjective Patient sitting in chair upon PT arrival, agreeable to treatment. Patient rates pain at 0/10 currently. Objective Patient Orientation: Person, Place, Situation Attachments: [place] Catheter, IV ROM/Strength ROM Lower Extremities WFLs BLEs all planes Strength Lower Extremities 3+/5 BLEs all planes Sensory Vision: Functional Hearing: Impaired Hand Dominance: Right Sensation Right Lower Extremit: Intact Sensation Left Lower Extremity: Intact Transfers Sit to Stand (QC): 4 Chair/Jie-kl-Rqqzy Xfer(QC): 4 Gait Mode of Locomotion: Walk Anticipated Mode of Locomotion: Walk Walk 10 feet (QC): 4 Walk 50 ft with 2 Turns(QC): 4 Walk 150 ft (QC): 4 Distance: 300' Gait Assistive Device: None Balance Sitting Static: Normal Sitting Dynamic: Normal Standing Static: Good Standing Dynamic: Fair Assessment/Needs Patient currently as PLOF. No further PT needed at this time. Rehab Potential: Good PT Plan Treatment/Plan Treatment Plan: Continue Plan of Care Treatment Duration: Jul 24, 2023 Frequency: Patient and/or Family Agrees t: Yes Time Time In: 1335 Time Out: 1350 DATE: Jul 24, 2023 Total Billed Treatment Time: 15 Total Billed Treatment Visit, RADHA PEREIRA PT Jul 24, 2023 14:24
[2023-07-24] MEDS ORDERED: CETI10TA17 PO (14:42)
[2023-07-24] MEDS ORDERED: BUSP5TAB59 PO (14:42)
[2023-07-24 16:29] VITALS: BP 183/82
[2023-07-24 19:59] VITALS: BP 169/78
[2023-07-24] MEDS: DONEPEZIL 10 MG TABLET PO SCH (20:00)
[2023-07-24 23:06] VITALS: BP 151/61
[2023-07-25] MEDS: NS IV 1000 ML 1,000 ML IV SCH (03:04)
[2023-07-25 04:00] VITALS: BP 135/69
[2023-07-25 07:31] VITALS: BP 158/83
[2023-07-25] MEDS: ATENOLOL 25 MG TABLET PO SCH (08:49)
[2023-07-25] MEDS: SERTRALINE 50 MG TABLET PO SCH (08:50)
[2023-07-25] MEDS: FAMOTIDINE 20 MG TABLET PO SCH (08:51)
--- NOTE | 2023-07-25 10:06 | Speech Therapy Daily Note ---
Speech Daily Progress Note Subjective Date Seen by Provider: Jul 25, 2023 Time Seen by Provider: :28 The patient was seated upright in his recliner upon entrance to his room. The patient greeted the clinician appropriately and was agreeable to participation in the skilled cognitive treatment session. Objective - Orientation: The patient was independently oriented to self, location, month, day of the week, and year. - Home Safety Problem Solving: The patient was able to provide accurate solutions to basic home safety issues such as a fire, a medical emergency, or a fall. The patient stated, "I used to keep one of those little cubbies for my pills but I got lazy. Now I just keep them all in a box." The clinician discussed and encouraged the use of a pill box to aid in his recall of medication. Additionally, the patient stated he has a caregiver that comes on from 10:00 to 15:00. During the time, the caregiver cleans his house, does the dishes and purchases groceries. The clinician recommended the caregiver aid the patient is pill management and organize his medications in his pill box during this time. Additionally, the patient recommended the use of a life alert system to aid the patient during emergencies. Assessment Assessment Current Status: Fair Progress Treatment Plan Continue Plan of Care Speech Short Term Goals Short Term Goals Short Term Goals 1. The patient will demonstrate memory strategies (external) with 75% accuracy and mild clinician verbal cueing. Time Frame-STG: Five Days. Speech Care Home Goals Supervisor Landscape Goals 1. The patient will display improved cognitive linguistic skills for safe discharge to the least restrictive environment. Time Frame: One Week. Speech-Plan Treatment Plan Speech Therapy Treatment Plan: Continue Plan of Care Treatment Duration: Jul 24, 2023 Frequency: 2 times per week Estimated Hrs Per Day: .25 hour per day Rehab Potential: Good Pt/Family Agrees to Plan: Yes Safety Risks/Education Teaching Recipient: Patient Teaching Methods: Discussion Response to Teaching: Reinforcement Needed Education Topics Provided: Safety Problem Solving Time Speech Therapy Time In: :28 Speech Therapy Time Out: 09:45 DATE: Jul 25, 2023 Total Billed Time: 17 Billed Treatment Time 1[address] Jul 25, 2023 10:06
--- NOTE | 2023-07-25 11:00 | Discharge Summary ---
OLAMIDE HENRY 07/25/23 1100: Diagnosis/Chief Complaint Date of Admission Jul 23, 2023 at 19:29 Date of Discharge Admission Diagnosis CHANDRAKANT due to dehydration and diarrhea UTI Primary Care Ben Enriquez DO Discharge Summary Discharge Physical Exam Allergies: Coded Allergies: Penicillins (Verified Allergy, Unknown, FROM CHILDHOOD; PT TOLERATED CEFTRIAXONE, 07/25/23) Reacted as a child per uncoded allergy Vitals & I&Os Vital Signs Date Time Temp Pulse Resp B/P (MAP) Pulse Ox O2 Delivery O2 Flow Rate FiO2 07/25/23 07:31 36.7 63 19 158/83 (108) 97 Room Air General Appearance: No Apparent Distress, WD/WN HEENT: PERRL/EOMI; No Scleral Icterus (L), No Scleral Icterus (R) Respiratory: Lungs Clear, Normal Breath Sounds, No Accessory Muscle Use, No Respiratory Distress Cardiovascular: Regular Rate, Rhythm, No JVD, No Murmur Gastrointestinal: Non Tender, Soft; No Distended, No Guarding Extremity: Non Tender, No Pedal Edema Skin: Warm/Dry, Ecchymosis (left forearm) Neurologic/Psychiatric: Alert, Disoriented Hospital Course Mihir Hitchcock is a 77M who presented with infectious diarrhea, dehydration, a catheter-induced UTI, acute on chronic kidney disease, orthostatic hypotension, dementia, HTN, hyperlipidemia, and anxiety. He received IV fluids, Rocephin, Donepezil, Atenolol, Atorvastatin, and Sertraline to manage his conditions. services mgr, PT, OT, and speech therapy were also consulted. He has now had a solid BM and is not experiencing orthostatic hypotension and will be discharged with a culture-sensitive oral antibiotic for his UTI. Labs (last 24 hrs) Microbiology 07/23/23 Urine Culture - Preliminary, Resulted Gram Negative Bacillus 1 07/23/23 C. difficile GDH Antigen & Toxins - Final, Resulted 07/23/23 Stool Culture, Resulted Pending Patient resulted labs reviewed. Discharge Home Medications: Active Scripts Active Reported Buspirone HCl 5 Mg Tablet 5 Mg PO TID PRN Cetirizine HCl 10 Mg Tablet 10 Mg PO DAILY Atorvastatin Calcium 80 Mg Tablet 40 Mg PO HS TAKES OF A 80MG TAB LAST FILLED 02-19-2021 #45/90 DAY SUPPLY Bupropion Xl (Bupropion HCl) 150 Mg Tab.er.24h 150 Mg PO DAILY Ferrous Sulfate 325 Mg (65 Mg Iron) Tablet 325 Mg PO DAILY Donepezil HCl 10 Mg Tablet 10 Mg PO HS Famotidine 40 Mg Tablet 40 Mg PO DAILY Flonase Allergy Relief (Fluticasone Propionate) 50 Mcg/Actuation Buckner.susp 2 Buckner NSEACH DAILY PRN Vitamin B-12 (Cyanocobalamin (Vitamin B-12)) 500 Mcg Tablet 1,000 Mcg PO DAILY TAKES 2 (500MCG) TABS Instructions to patient/family Please see electronic discharge instructions given to patient. ALEX JAUREGUI MD 07/25/23 1448: Discharge Summary Discharge Physical Exam Allergies: Coded Allergies: Penicillins (Verified Allergy, Unknown, FROM CHILDHOOD; PT TOLERATED CEFTRIAXONE, 07/25/23) Reacted as a child per uncoded allergy Discussion & Recommendations Discharge Planning: >30 minutes discharge planning Supervisory-Addendum Brief Verification & Attestation Participated in pt care: history, MDM, physical Personally performed: exam, history, MDM, supervision of care Care discussed with: Medical Student Procedures: n/a Results interpretation: Verified all documentation Verification and Attestation of Medical Student E/M Service A medical student performed and documented this service in my presence. I reviewed and verified all information documented by the medical student and made modifications to such information, when appropriate. I personally performed the physical exam and medical decision making. Alex Jauregui, Jul 25, 2023,14:48 OLAMIDE HENRY Jul 25, 2023 11:00 ALEX JAUREGUI MD Jul 25, 2023 14:48
[2023-07-25] MEDS: cefTRIAXone IV/IM 1,000 MG in NS (IVPB) 50 ML 50 ML IV SCH (11:09)
--- NOTE | 2023-07-25 11:10 | Discharge Inst-Simple/Standard ---
Discharge Inst-Standard Patient Instructions/Follow Up Plan of Care/Instructions/FU: Please continue to take your medications as written. Please follow up with your primary care doctor to follow up this hospital stay. Activity as Tolerated: Yes Discharge Diet: Cardiac Diet Return to The Hospital For: Chest pain, shortness of breath, fever, weakness, if you feel you are getting worse. ALEX BEJARANO MD Jul 25, 2023 11:10
[2023-07-25 11:43] VITALS: BP 138/71
[2023-07-25] MEDS ORDERED: CEFD300C3 PO (14:46)
[2023-07-25 15:57] VITALS: BP 148/76
[2023-07-25 19:33] VITALS: BP 162/75
[2023-07-25] MEDS: DONEPEZIL 10 MG TABLET PO SCH (19:46)
[2023-07-26 00:04] VITALS: BP 166/78
[2023-07-26 04:02] VITALS: BP 162/78
[2023-07-26 07:42] VITALS: BP 184/84
[2023-07-26] MEDS: ATENOLOL 25 MG TABLET PO SCH (08:09)
[2023-07-26] MEDS: FAMOTIDINE 20 MG TABLET PO SCH (08:09)
[2023-07-26] MEDS: SERTRALINE 50 MG TABLET PO SCH (08:09)
[2023-07-26] MEDS: cefTRIAXone IV/IM 1,000 MG in NS (IVPB) 50 ML 50 ML IV SCH (10:35)
[2023-07-29] MEDS ORDERED: LOSA50TA63 PO (12:05)
[2023-07-29] MEDS ORDERED: METO50TA7 PO (12:05)
[2023-07-29] MEDS ORDERED: ASPI-999 PO (12:05)
== END 2023-07-26 11:03 | disposition home or self-care (01) ==
LOC: EDUNIT# 14:53 → ER 14:55 → UNDOADMOB 19:29 → 4TH 19:29 → UNDODISOB 07-26 11:03
PROVIDERS: ADMIT Family Medicine; ATTEND Family Medicine
DX: N17.9 Acute kidney failure, unspecified (principal); E86.0 Dehydration; A09 Infectious gastroenteritis and colitis, unspecified; T83.518A Infection and inflammatory reaction due to other urinary catheter, initial encounter; N39.0 Urinary tract infection, site not specified; F03.90 Unspecified dementia, unspecified severity, without behavioral disturbance, psychotic disturbance, mood disturbance, and anxiety; N18.9 Chronic kidney disease, unspecified; I95.1 Orthostatic hypotension; I12.9 Hypertensive chronic kidney disease with stage 1 through stage 4 chronic kidney disease, or unspecified chronic kidney disease; E78.5 Hyperlipidemia, unspecified; F41.9 Anxiety disorder, unspecified; Z79.899 Other long term (current) drug therapy
CPT/HCPCS: 36415; 80048; 81000; 85025; 85027; 87015; 87045; 87046; 87077; 87088; 87186; 87324; 87449; 87899; 96366; 96375; G0378

== ENCOUNTER 2023-07-26 21:47 | Inpatient (IN) | payer MEDICARE, MEDICAID ==
[~2023-07-26] VITALS: Ht 172.7 cm; Wt 103.2 kg
[~2023-07-26 21:47] MED LIST changes: +BUSP5TAB59 PO; +CEFD300C3 PO
--- NOTE | 2023-07-26 22:09 | ED General ---
General Stated Complaint: CATHETER ISSUES Source of Information: Patient, EMS Exam Limitations: Physical Impairments History of Present Illness Date Seen by Provider: Jul 26, 2023 Time Seen by Provider: 21:48 Initial Comments Here by EMS with suprapubic catheter problems. He is leaking clear yellow urine around the catheter and EMS notes blood pressure 220s over 100 in the field. EMS initially called for oxygen tubing failure and shortness of breath and when they got there, patient is not on oxygen but has suprapubic catheter leakage and tubing is disconnected and taped at the end. Patient is known to me and he is obviously confused and not his normal mentation. He denies pain except for in the suprapubic region. No report of falls but he is very poor historian currently. He apparently was just recently let out of the hospital and went home today. Timing/Duration: 12 Hours Severity: Moderate Associated Systoms: No Fever/Chills, No Nausea/Vomiting Allergies and Home Medications Allergies Coded Allergies: Penicillins (Verified Allergy, Unknown, FROM CHILDHOOD; PT TOLERATED CEFTRIAXONE, 07/25/23) Reacted as a child per uncoded allergy Patient Home Medication List Home Medication List Reviewed: Yes Atorvastatin Calcium (Atorvastatin Calcium) 80 Mg Tablet, 40 MG PO HS, (Reported) Entered as Reported by: SENIA LUNA on 09/06/21 1212 Last Action: Reviewed Bupropion HCl (Bupropion Xl) 150 Mg Tab.er.24h, 150 MG PO DAILY, (Reported) Entered as Reported by: SENIA LUNA on 09/06/21 1210 Last Action: Reviewed Buspirone HCl (Buspirone HCl) 5 Mg Tablet, 5 MG PO TID PRN for ANXIETY, (Reported) Entered as Reported by: SENIA LUNA on 07/24/23 144 Last Action: Reviewed Cefdinir (Cefdinir) 300 Mg Capsule, 300 MG PO BID Prescribed by: ALEX BEJARANO on 07/25/23 1446 Last Action: Reviewed Cetirizine HCl (Cetirizine HCl) 10 Mg Tablet, 10 MG PO DAILY, (Reported) Entered as Reported by: SENIA LUNA on 07/24/23 1442 Last Action: Reviewed Cyanocobalamin (Vitamin B-12) (Vitamin B-12) 500 Mcg Tablet, 1,000 MCG PO DAILY, (Reported) Entered as Reported by: SENIA LUNA on 11/27/201155 Last Action: Reviewed Donepezil HCl (Donepezil HCl) 10 Mg Tablet, 10 MG PO HS, (Reported) Entered as Reported by: SENIA LUNA on 09/06/211207 Last Action: Reviewed Famotidine (Famotidine) 40 Mg Tablet, 40 MG PO DAILY, (Reported) Entered as Reported by: SENIA LUNA on 09/06/211207 Last Action: Reviewed Ferrous Sulfate (Ferrous Sulfate) 325 Mg (65 Mg Iron) Tablet, 325 MG PO DAILY, (Reported) Entered as Reported by: SENIA LUNA on 09/06/211207 Last Action: Reviewed Fluticasone Propionate (Flonase Allergy Relief) 50 Mcg/Actuation [place].susp, 2 SPRAY NSEACH DAILY PRN for CONGESTION, (Reported) Entered as Reported by: SENIA LUNA on 11/27/201155 Last Action: Reviewed Discontinued Medications ALPRAZolam (ALPRAZolam) 0.25 Mg Tablet, 0.25 MG PO BID, (Reported) Discontinued Reason: No Longer Taking Entered as Reported by: SENIA LUNA on 09/06/211207 Amoxicillin/Potassium Clav (Augmentin 875-125 Tablet) 1 Each Tablet, 1 EACH PO BID Discontinued Reason: No Longer Taking Prescribed by: ZACH CALVIN on 09/07/21 120 Atenolol (Atenolol) 25 Mg Tablet, 25 MG PO DAILY, (Reported) Discontinued Reason: No Longer Taking Entered as Reported by: SENIA LUNA on 09/06/21 120 Cholecalciferol (Vitamin D3) (Vitamin D3) 25 Mcg Capsule, 50 MCG PO DAILY, (Reported) Discontinued Reason: No Longer Taking Entered as Reported by: SENIA LUNA on 09/06/21 120 Ciprofloxacin HCl (Ciprofloxacin HCl) 250 Mg Tablet, 250 MG PO BID Discontinued Reason: No Longer Taking Prescribed by: GINNY CORTÉS on 06/26/23 1551 Ciprofloxacin HCl (Cipro) 250 Mg Tablet, 250 MG PO BID Discontinued Reason: No Longer Taking Prescribed by: LETITIA MARIE on 07/05/23 1622 Doxycycline Hyclate (Doxycycline Hyclate) 100 Mg Tablet, 100 MG PO BID Discontinued Reason: No Longer Taking Prescribed by: ULISES YODER on 07/15/23 0654 Magnesium Oxide (Magnesium Oxide) 420 Mg Tablet, 420 MG PO BID, (Reported) Discontinued Reason: No Longer Taking Entered as Reported by: ELLIS DIXON on 02/19/19 1347 Sertraline HCl (Sertraline HCl) 25 Mg Tablet, 25 MG PO DAILY, (Reported) Discontinued Reason: No Longer Taking Entered as Reported by: STEPHEN YAO on 08/21/21 0233 Sulfamethoxazole/Trimethoprim (Bactrim Ds Tablet) 1 Each Tablet, 1 EACH PO BID Discontinued Reason: No Longer Taking Prescribed by: LEONOR AUGUSTIN on 01/19/22 1216 Zinc (Zinc) 50 Mg Tablet, 50 MG PO DAILY, (Reported) Discontinued Reason: No Longer Taking Entered as Reported by: SENIA LUNA on 09/06/21 1209 Review of Systems Review of Systems Constitutional: see HPI; No chills, No fever Cardiovascular: No chest pain Gastrointestinal: abdominal pain Genitourinary: see HPI Skin: No change in color Psychiatric/Neurological: Other (Moderate confusion) Past Ngiriiz-Kdspaj-Qxluws Hx Patient Social History Tobacco Use?: No Use of E-Cig and/or Vaping dev: No Substance use?: No Alcohol Use?: No Immunizations Up To Date Tetanus Booster (TDap): Unknown First/Initial COVID19 Vaccinat: NOV 2020 Second COVID19 Vaccination Yg: DECEMBER 2020 Third COVID19 Vaccination Date: YES Seasonal Allergies Seasonal Allergies: Yes Past Medical History Surgery/Hospitalization HX: PMH: HIGH CHOL, HTN, DEPRESSION, GERD, CHRONIC UTI-SUPRAPUBIC CATH Surgeries: Yes (lesion from neck, suprapubic cath, foot) Bladder Surgery Respiratory: Yes Pneumonia Cardiac: Yes High Cholesterol, Hypertension Neurological: Yes (VERY POOR MEMORY/CONFUSION) Reproductive Disorders: No Sexually Transmitted Disease: No HIV/AIDS: No Genitourinary: Yes (suprapubic catheter; Kidney defect) Prostate Problems, Neurogenic Bladder, UTI-Chronic Gastrointestinal: Yes Gastroesophageal Reflux, Chronic Constipation, Hemorrhoids, Polyps Musculoskeletal: No Endocrine: No HEENT: Yes (GLASSES) Double Vision Loss of Vision: Denies Hearing Impairment: Hard of Hearing, Bilateral Hearing Aide Cancer: Yes Skin Did You Recieve Any Treatments: Yes What Type of Treatment Did You: Surgical Intervention Psychosocial: Yes Anxiety, Depression Integumentary: Yes (skin ca; CANDIDAL INTERTRIGO) Blood Disorders: No Adverse Reaction/Blood Tranf: No (N/A) Family Medical History Reviewed Nursing Family Hx Cancer, Psychiatric Problems PAST SURGICAL HISTORY: -SUPRAPUBIC CATHETER PLACEMENT FOR NEUROGENIC BLADDER AND BLADDER OUTLET OBSTRUCTION Physical Exam Vital Signs Vital Signs - First Documented 07/26/23 21:55 Temp 36.6 Pulse 82 Resp 16 B/P (MAP) 203/100 (134) Pulse Ox 92 O2 Delivery Room Air Capillary Refill : Height, Weight, BMI Height: 5'8.00" Weight: 155lbs. 0.0oz. [id number]; 35.42 BMI Method:Stated General Appearance: WD/WN, Mild Distress, Other (Moderately confused) HEENT: PERRL/EOMI, Pharynx Normal Neck: Non Tender, Supple Respiratory: Lungs Clear, Normal Breath Sounds Cardiovascular: Regular Rate, Rhythm, No Murmur Gastrointestinal: Non Tender, Soft Back: Normal Inspection, No Vertebral Tenderness Extremity: Normal Range of Motion, Non Tender Neurologic/Psychiatric: Alert, Oriented x3 Skin: Normal Color, Warm/Dry Focused Exam Lactate Level 07/26/23 22:11: Lactic Acid Level 0.94 Lactic Acid Level Laboratory Tests Test 07/26/23 22:11 Lactic Acid Level 0.94 MMOL/L (0.50-2.00) Progress/Results/Core Measures Suspected Sepsis SIRS Temperature: Pulse: Respiratory Rate: Laboratory Tests 07/26/23 22:11: White Blood Count 14.7H Blood Pressure / Mean: 07/26/23 22:11: Lactic Acid Level 0.94 Laboratory Tests 07/26/23 22:11: Creatinine 1.41H, Platelet Count 219, Total Bilirubin 0.3 Results/Orders Lab Results Laboratory Tests Test 07/26/23 22:03 07/26/23 22:05 07/26/23 22:11 Range/Units B-Type Natriuretic Peptide 273.8 H <100.0 PG/ML Urine Color RED H Urine Clarity CLOUDY Urine pH 6.0 5-9 Urine Specific [place] 1.020 1.016-1.022 Urine Protein 3+ H NEGATIVE Urine Glucose (UA) NEGATIVE NEGATIVE Urine Ketones NEGATIVE NEGATIVE Urine Nitrite NEGATIVE NEGATIVE Urine Bilirubin NEGATIVE NEGATIVE Urine Urobilinogen 0.2 < = 1.0 MG/DL Urine Leukocyte Esterase NEGATIVE NEGATIVE Urine RBC (Auto) 3+ H NEGATIVE Urine RBC TNTC H /HPF Urine WBC 5-10 H /HPF Urine Squamous Epithelial Cells NONE /HPF Urine Crystals NONE /LPF Urine Bacteria TRACE /HPF Urine Casts NONE /LPF Urine Mucus NEGATIVE /LPF Urine Culture Indicated NO White Blood Count 14.7 H 4.3-11.0 10^3/uL Red Blood Count 3.70 L 4.30-5.52 10^6/uL Hemoglobin 11.0 L 13.3-17.7 g/dL Hematocrit 32 L 40-54 % Mean Corpuscular Volume 88 80-99 fL Mean Corpuscular Hemoglobin 30 25-34 pg Mean Corpuscular Hemoglobin Concent 34 32-36 g/dL Red Cell Distribution Width 12.2 10.0-14.5 % Platelet Count 219 130-400 10^3/uL Mean Platelet Volume 9.7 9.0-12.2 fL Immature Granulocyte % (Auto) 0 % Neutrophils (%) (Auto) 72 42-75 % Lymphocytes (%) (Auto) 11 L 12-44 % Monocytes (%) (Auto) 12 0-12 % Eosinophils (%) (Auto) 4 0-10 % Basophils (%) (Auto) 1 0-10 % Neutrophils # (Auto) 10.5 H 1.8-7.8 10^3/uL Lymphocytes # (Auto) 1.6 1.0-4.0 10^3/uL Monocytes # (Auto) 1.8 H 0.0-1.0 10^3/uL Eosinophils # (Auto) 0.7 H 0.0-0.3 10^3/uL Basophils # (Auto) 0.1 0.0-0.1 10^3/uL Immature Granulocyte # (Auto) 0.1 0.0-0.1 10^3/uL Sodium Level 135 135-145 MMOL/L Potassium Level 3.3 L 3.6-5.0 MMOL/L Chloride Level 102 98-107 MMOL/L Carbon Dioxide Level 18 L 21-32 MMOL/L Anion Gap 15 H 5-14 MMOL/L Blood Urea Nitrogen 18 7-18 MG/DL Creatinine 1.41 H 0.60-1.30 MG/DL Estimat Glomerular Filtration Rate 52 BUN/Creatinine Ratio 13 Glucose Level 116 H 70-105 MG/DL Lactic Acid Level 0.94 0.50-2.00 MMOL/L Calcium Level 8.5 8.5-10.1 MG/DL Corrected Calcium 8.7 8.5-10.1 MG/DL Magnesium Level 1.7 1.6-2.4 MG/DL Total Bilirubin 0.3 0.1-1.0 MG/DL Aspartate Amino Transf (AST/SGOT) 25 5-34 U/L Alanine Aminotransferase (ALT/SGPT) 27 0-55 U/L Alkaline Phosphatase 77 40-136 U/L Troponin I 0.043 H <0.028 NG/ML C-Reactive Protein High Sensitivity 2.43 H 0.00-0.50 MG/DL Total Protein 6.9 6.4-8.2 GM/DL Albumin 3.7 3.2-4.5 GM/DL My Orders Orders - GINNY CORTÉS MD Cbc And Automated Diff (07/26/23 22:) Comprehensive Metabolic Panel (07/26/23 22:) Hs C Reactive Protein (07/26/23:) Magnesium (07/26/23:) Ua Culture If Indicated (07/26/23 22:) Catheter(Urinary) Insert & Ass 03,15 (07/26/23 22:) Ct Head Wo (07/26/23:) Chest 1 View, Ap/Pa Only (07/26/23:) Ekg Tracing (07/26/23:) Monitor-Rhythm Ecg Trace Only (07/26/23:) Troponin I Fisher (07/26/23 22:) Lactic Acid Analyzer (07/26/23 22:09) Blood Culture (07/26/23 22:09) Bnp Niurka (07/26/23 23:17) Vital Signs/I&O 07/26/23 21:55 Temp 36.6 Pulse 82 Resp 16 B/P (MAP) 203/100 (134) Pulse Ox 92 O2 Delivery Room Air Capillary Refill : Progress Note : Progress Note Seen and evaluated. I did review previous hospitalization. IV, labs including CBC, CMP, troponin, CRP, blood cultures and lactic acid ordered. We will replace suprapubic catheter and get UA. He is currently being treated for urinary tract infection with cefdinir although I am not sure he pick that up today. Normal saline 500 mL bolus ordered. We will get CT of the head and chest x-ray given the altered mental status and significant hypertension. Monitor patient. Differential diagnosis includes UTI, urinary retention, electrolyte abnormality, cardiac event, hypertensive encephalopathy 2317: Chest x-ray reviewed by me and shows bilateral vascular congestion concerning for edema/heart failure my interpretation. BNP added. CT head shows no acute intracranial hemorrhage on my interpretation. Labs reviewed CBC does show elevated white count 14.7 with slightly low hemoglobin and normal platelets. Does have neutrophilia. Chemistry reviewed and shows lactic Acid level was high indicating abnormally low tissue oxygenation. With potassium of 3.3 and creatinine of 1.41 and slightly elevated glucose with normal LFTs. CRP slightly elevated at 2.4. Troponin elevated at 0.043. Urine reviewed and shows too numerous to count RBCs with 5-10 whites and this is likely related to trauma from earlier when he was likely pulling on his suprapubic catheter. Patient. 0109: BNP is slightly elevated at 240s. Patient still is confused and overall not his typical normal self. Given the slightly elevated troponin and the confusion, admission is indicated. I did discuss the case with Dr. Nielsen, on- call for hospitalist service. He is excepted the patient for admission, inpatient status. He asked that I write for some Ativan as the patient did require this on previous admission and I will write bridge orders and add Ativan 1 mg IV every 6 hours as needed agitation. Discussed with patient who agrees with plan. Patient is full code. ECG Initial ECG Impression Date: Jul 26, 2023 Initial ECG Impression Time: 22:39 Initial ECG Rate: 71 Initial ECG Rhythm: Normal Sinus Initial ECG Impression: Normal Comment Sinus rhythm with normal axis. No evidence of ST elevation VA. Interpreted by me. Diagnostic Imaging Diagonstic Imaging: CT Plain Films/CT/US/NM/MRI: head Comments Per stat rad report, no acute findings in the head/brain Reviewed: Reviewed by Me Departure Communication (Admissions) Time/Spoke to Admitting Phy: 01:09 Impression Primary Impression: Altered mental status Qualified Codes: R41.0 - Disorientation, unspecified Additional Impression: Non-ST elevation VA (NSTEMI) Disposition: ADMITTED INPATIENT Condition: Stable Admissions Decision to Admit Reason: Admit from ER (General) Decision to Admit/Date: Jul 27, 2023 Time/Decision to Admit Time: 01:09 Departure-Patient Inst. Referrals: SHARON EARL DO (PCP/Family) Primary Care Physician GINNY CORTÉS MD Jul 26, 2023 22:09
[2023-07-26 22:20] LABS: BASOPHILS # (AUTO) 0.1 10^3/uL (0.0-0.1); BASOPHILS % (AUTO) 1 % (0-10); EOSINOPHILS # (AUTO) 0.7 10^3/uL (0.0-0.3); EOSINOPHILS % (AUTO) 4 % (0-10); HEMATOCRIT 32 % (40-54); LYMPHOCYTES # (AUTO) 1.6 10^3/uL (1.0-4.0); LYMPHOCYTES % (AUTO) 11 % (12-44); MEAN CORPUSCULAR HEMOGLOBIN 30 pg (25-34); MEAN CORPUSCULAR HGB CONC 34 g/dL (32-36); MEAN CORPUSCULAR VOLUME 88 fL (80-99); MEAN PLATELET VOLUME 9.7 fL (9.0-12.2); MONOCYTES # (AUTO) 1.8 10^3/uL (0.0-1.0); MONOCYTES % (AUTO) 12 % (0-12); NEUTROPHILS # (AUTO) 10.5 10^3/uL (1.8-7.8); NEUTROPHILS % (AUTO) 72 % (42-75); PLATELET COUNT 219 10^3/uL (130-400); WHITE BLOOD COUNT 14.7 10^3/uL (4.3-11.0)
[2023-07-26 22:32] LABS: ALBUMIN 3.7 GM/DL (3.2-4.5)
[2023-07-26 22:33] LABS: POTASSIUM 3.3 MMOL/L (3.6-5.0)
[2023-07-26 22:33] LABS: CLARITY,URINE CLOUDY; COLOR,URINE RED
[2023-07-26 22:34] LABS: CALCIUM 8.5 MG/DL (8.5-10.1)
[2023-07-26 22:34] LABS: BACTERIA,URINE TRACE /HPF; BILIRUBIN,URINE NEGATIVE (NEGATIVE); GLUCOSE, URINE (UA) NEGATIVE (NEGATIVE); KETONES,URINE NEGATIVE (NEGATIVE); LEUKOCYTE ESTERASE ,URINE NEGATIVE (NEGATIVE); NITRITE,URINE NEGATIVE (NEGATIVE); PROTEIN,URINE 3+ (NEGATIVE); RBC,URINE TNTC /HPF
[2023-07-26 22:35] LABS: TOTAL PROTEIN 6.9 GM/DL (6.4-8.2)
[2023-07-26 22:37] LABS: BILIRUBIN,TOTAL 0.3 MG/DL (0.1-1.0)
[2023-07-26 22:39] LABS: CREATININE SERUM 1.41 MG/DL (0.60-1.30)
[2023-07-26 22:41] LABS: MAGNESIUM 1.7 MG/DL (1.6-2.4)
[2023-07-27] VITALS (7 sets, daily range): BP systolic 138–180; BP diastolic 63–85
[2023-07-27] MEDS: CATHETER FLUSH 10 ML SYR IVP SCH ×3 (05:50→19:13)
[2023-07-27 06:05] LABS: BASOPHILS # (AUTO) 0.1 10^3/uL (0.0-0.1); BASOPHILS % (AUTO) 1 % (0-10); EOSINOPHILS # (AUTO) 0.5 10^3/uL (0.0-0.3); EOSINOPHILS % (AUTO) 3 % (0-10); HEMATOCRIT 33 % (40-54); LYMPHOCYTES # (AUTO) 1.5 10^3/uL (1.0-4.0); LYMPHOCYTES % (AUTO) 9 % (12-44); MEAN CORPUSCULAR HEMOGLOBIN 30 pg (25-34); MEAN CORPUSCULAR HGB CONC 34 g/dL (32-36); MEAN CORPUSCULAR VOLUME 88 fL (80-99); MEAN PLATELET VOLUME 9.5 fL (9.0-12.2); MONOCYTES # (AUTO) 1.9 10^3/uL (0.0-1.0); MONOCYTES % (AUTO) 12 % (0-12); NEUTROPHILS # (AUTO) 12.3 10^3/uL (1.8-7.8); NEUTROPHILS % (AUTO) 75 % (42-75); PLATELET COUNT 218 10^3/uL (130-400); WHITE BLOOD COUNT 16.3 10^3/uL (4.3-11.0)
[2023-07-27 06:25] LABS: POTASSIUM 3.4 MMOL/L (3.6-5.0)
[2023-07-27 06:26] LABS: CALCIUM 8.5 MG/DL (8.5-10.1)
[2023-07-27 06:30] LABS: CREATININE SERUM 1.28 MG/DL (0.60-1.30)
[2023-07-27 06:43] LABS: EOSINOPHILS % (MANUAL) 4 %; LYMPHOCYTES % (MANUAL) 9 %; MONOCYTES % (MANUAL) 10 %; NEUTROPHILS % (MANUAL) 77 %; RBC MORPH NORMAL
--- NOTE | 2023-07-27 07:18 | Diagnostic Imaging Report ---
EXAMINATION: CT head without contrast. TECHNIQUE: Multiple contiguous axial images were obtained through the brain without the use of intravenous contrast. All CT scans use one or more of the following dose optimizing techniques: automated exposure control, MA and/or KvP adjustment based on patient size and exam type or iterative reconstruction. HISTORY: Altered mental status COMPARISON: 04/30/2020 FINDINGS: Mild diffuse cerebral volume loss with proportional enlargement of the ventricles and sulci. No abnormal attenuation of brain parenchyma is present. No acute intracranial hemorrhage or abnormal extra-axial fluid collections are present. Calcification of the intracranial ICAs. No hyperdense vessel. The calvarium is intact. The mastoid air cells are clear. Mucosal thickening of the paranasal sinuses. The orbits are normal. IMPRESSION: 1. No acute intracranial abnormality.. 2. Agree with preliminary interpretation. Dictated by: Dictated on workstation # [id number]
--- NOTE | 2023-07-27 08:05 | Diagnostic Imaging Report ---
EXAMINATION: Chest 1 view HISTORY: HTN COMPARISON: 06/26/2023 FINDINGS: Heart size and pulmonary vasculature are normal. There are patchy interstitial and airspace opacities throughout the lungs greatest within the mid and lower lungs. No pleural effusion or pneumothorax. Degenerative changes of the thoracic spine. Osseous structures are otherwise intact. IMPRESSION: 1. Patchy perihilar and basilar interstitial opacities within both lungs concerning for pulmonary edema or pneumonia. Dictated by: Dictated on workstation # [id number]
[2023-07-27] MEDS: CEFDINIR 300 MG CAPSULE PO SCH ×2 (09:14→19:13)
[2023-07-27] MEDS ORDERED: LOSARTAN 50 MG TABLET PO ONE (11:30)
[2023-07-27] MEDS ORDERED: FUROSEMIDE INJECTION 40 MG/4 ML VIAL IVP ONE (11:30)
[2023-07-27] MEDS ORDERED: POTASSIUM CHLORIDE 10 MEQ TABLET PO ONE (11:30)
--- NOTE | 2023-07-27 11:37 | History & Physical-Hospitalist ---
History of Present Illness HPI/Chief Complaint Mihir Hitchcock is a 77M who presented with infectious diarrhea, dehydration, a catheter-induced UTI, acute on chronic kidney disease, orthostatic hypotension, dementia, HTN, hyperlipidemia, and anxiety. He received IV fluids, Rocephin, Donepezil, Atenolol, Atorvastatin, and Sertraline to manage his conditions. volunteer services supervisor, PT, OT, and speech therapy were also consulted. He has now had a solid BM and is not experiencing orthostatic hypotension and will be discharged with a culture-sensitive oral antibiotic for his UTI.The patient was discharged yesterday morning but was brought back to the emergency room last night due to increased confusion. He was pulling at his suprapubic catheter. He has a history of dementia presumed Alzheimer's on donepezil but was living at home reportedly alone. He voiced no complaints this morning did not know why he was here. He denied chest pain shortness of breath abdominal pain or diarrhea. He was pleasant without evidence for agitation. He reported no cough and appe ared to be in no acute distress. In review of his last hospital stay while he was diagnosed with a UTI he only had 5-10 white cells in individual with suprapubic catheter with UA culture report revealing no reported significant growth. He has no past history of coronary disease was noted to have mildly elevated troponin. This was obtained not to do to any cardiac complaints and an ECG was done that was normal. Date Seen 07/27/23 Time Seen by a Provider: 09:00 Attending Physician Ben Enriquez DO PCP Admitting Physician: Olamide Benito MD Attending Physician: Olamide Benito MD Referring Physician Date of Admission Jul 27, 2023 at 01:15 Home Medications & Allergies Home Medications Reviewed patient Home Medication Reconciliation performed by pharmacy medication reconciliations pathological technician and/or nursing. Patients Allergies have been reviewed. Allergies Allergies Coded Allergies Penicillins (Verified Allergy, Unknown, FROM CHILDHOOD; PT TOLERATED CEFTRIAXONE, 07/25/23) Reacted as a child per uncoded allergy Past Dhedtyc-Gojipo-Xismdi Hx Patient Social History Tobacco Use?: No Use of E-Cig and/or Vaping dev: No Substance use?: No Alcohol Use?: No Pt feels they are or have been: No Immunizations Up To Date Date of Influenza Vaccine: Jul 08, 2023 First/Initial COVID19 Vaccinat: 2020 Second COVID19 Vaccination Yg: 2020 Tetanus Booster (TDap): More Than 5 Years Hepatitis A: No Hepatitis B: No Date of Pneumonia Vaccine: Jun 23, 2012 Seasonal Allergies Seasonal Allergies: Yes Current Status Communicates: Verbally Primary Language: [place] Preferred Spoken Language: [place] Is interpretation needed?: No Sensory deficits: Vision impairment, Hearing impairment Past Medical History Surgeries: Bladder Surgery Pneumonia High Cholesterol, Hypertension Sexually Transmitted Disease: No HIV/AIDS: No Prostate Problems, Neurogenic Bladder, UTI-Chronic Gastroesophageal Reflux, Chronic Constipation, Hemorrhoids, Polyps Double Vision Loss of Vision: Denies Hearing Impairment: Hard of Hearing, Bilateral Hearing Aide Skin Did You Recieve Any Treatments: Yes What Type of Treatment Did You: Surgical Intervention Anxiety, Depression Blood Disorders: No Adverse Reaction/Blood Tranf: No (N/A) Family Medical History Reviewed Nursing Family Hx Cancer, Psychiatric Problems PAST SURGICAL HISTORY: -SUPRAPUBIC CATHETER PLACEMENT FOR NEUROGENIC BLADDER AND BLADDER OUTLET OBSTRUCTION Review of Systems Constitutional: see HPI Physical Exam Physical Exam Vital Signs Vital Signs - First Documented 07/26/23 21:55 Temp 36.6 Pulse 82 Resp 16 B/P (MAP) 203/100 (134) Pulse Ox 92 O2 Delivery Room Air Capillary Refill : Less Than 3 Seconds Height, Weight, BMI Height: 5'8.00" Weight: 155lbs. 0.0oz. [id number]; 34.60 BMI Method:Stated General Appearance: No Apparent Distress, Obese Neck: Full Range of Motion, Normal Inspection, Non Tender Respiratory: Chest Non Tender, Lungs Clear, Normal Breath Sounds, No Accessory Muscle Use, No Respiratory Distress Cardiovascular: Regular Rate, Rhythm, No Edema, No Gallop, No JVD, No Murmur, Normal Peripheral Pulses Gastrointestinal: Normal Bowel Sounds, No Organomegaly, No Pulsatile Mass, Non Tender, Soft Extremity: Normal Capillary Refill, Normal Inspection, Normal Range of Motion, Non Tender, No Calf Tenderness, No Pedal Edema Neurologic/Psychiatric: Alert Results Results/Procedures Labs Laboratory Tests 07/26/23 22:11 07/27/23 05:55 Patient resulted labs reviewed. Assessment/Plan Admission Diagnosis 1. History of dementia presumed Alzheimer's as he is on donepezil with acute delirium. While his white count is elevated and he has some perihilar opacities and increased interstitial type infiltrate his chest is completely clear to auscultation and he reports no infectious symptoms. He is able to take deep breaths without difficulty and no coughing. Favor pulmonary edema for this reason and likely type II ME from presumed diastolic dysfunction. Will repeat ECG and order echocardiography. Considering moderate blood pressure elevation in the above will start IV Lasix and losartan 50 mg daily and initiate aspirin daily. We will continue donepezil any apparently has a history of hyperl ipidemia so we will continue atorvastatin 80 mg at at bedtime. Lovenox will be administered for DVT prophylaxis and will initiate aspirin daily. We will repeat PA and lateral chest x-ray tomorrow. BNP level was obtained and was mildly elevated in the mid 200 range although obesity can falsely lower BNP level.Patient will need social service consult for intermediate placement which he was actually agreeable to today After discussion and recommendation. Admission Status: Inpatient Order (span 2 midnights) Reason for Inpatient Admission: See admission diagnosis OLAMIDE BENITO MD Jul 27, 2023 11:37
[2023-07-27] MEDS ORDERED: ASPIRIN 325 MG TABLET PO ONE (13:30)
--- NOTE | 2023-07-27 14:50 | Consultation-Cardiology ---
HPI-Cardiology Cardiology Consultation: Date of Consultation 07/27/23 Time Seen by a Provider: 14:15 Date of Admission Attending Physician Ben Enriquez DO Admitting Physician Admitting Physician: Yasir Nielsen MD Attending Physician: Yasir Nielsen MD Consulting Physician DAVID LARES MD, MA, FACP, FACC, [facility] [place], CCDS Physician requesting consult: Dr Nielsen HPI: Chief Complaint: Reason for Card consult: Elevated troponin 77 yo man who suffers from dementia was admitted to Dr Nielsen on 07/26/23 with leakage around his suprapubic catheter, elevated blood pressure, and increased confusion and mental status changes. He denies any cp or palp or syncope or shortness of breath or swelling. Also denies n/v/d. he had been admitted earlier this month to the Hospitalist service with diarrhea, dehydration, and catheter-induced UTI. Notes some gen malaise. Does not report fever or chills. Dr Nielsen has asked us to see him because troponin has been mildly elevated. Review of Systems-Cardiology Review of Systems Constitutional: As described under HPI Eyes: No vision change Ears/Nose/Throat: chronic hearing loss; No ear discharge, No nasal drainage, No recent hearing loss Respiratory: As described under HPI Cardiovascular: As described under HPI Gastrointestinal: As described under HPI Genitourinary: As described under HPI Musculoskeletal: No back pain, No joint pain Skin: No rash, No ulcerations Psychiatric/Neurological: No seizure, No focal weakness, No syncope Hematologic: No bleeding abnormalities [facility] Hx Patient Social History Smoking Status: Never a Smoker 2nd Hand Smoke Exposure: No Alcohol Use?: No Pt feels they are or have been: No Immunizations Up To Date Tetanus Booster (TDap): Unknown Date of Pneumonia Vaccine: Jun 23, 2012 Date of Influenza Vaccine: Jul 08, 2023 Past Medical History PMH As described under Assessment. Family Medical History Family Medical History: He does not report fam h/o early CAD Allergies and Home Medications Allergies Coded Allergies: Penicillins (Verified Allergy, Unknown, FROM CHILDHOOD; PT TOLERATED CEFTRIAXONE, 07/25/23) Reacted as a child per uncoded allergy Patient Home Medication List Home Medication List Reviewed: Yes Atorvastatin Calcium (Atorvastatin Calcium) 80 Mg Tablet, 40 MG PO HS, (Reported) Entered as Reported by: SENIA LUNA on 09/06/21 1212 Last Action: Reviewed Bupropion HCl (Bupropion Xl) 150 Mg Tab.er.24h, 150 MG PO DAILY, (Reported) Entered as Reported by: SENIA LUNA on 09/06/21 1210 Last Action: Reviewed Buspirone HCl (Buspirone HCl) 5 Mg Tablet, 5 MG PO TID PRN for ANXIETY, (Reported) Entered as Reported by: SENIA LUNA on 07/24/23 144 Last Action: Reviewed Cefdinir (Cefdinir) 300 Mg Capsule, 300 MG PO BID Prescribed by: AELX BEJARANO on 07/25/23 144 Last Action: Reviewed Cetirizine HCl (Cetirizine HCl) 10 Mg Tablet, 10 MG PO DAILY, (Reported) Entered as Reported by: SENIA LUNA on 07/24/231441 Last Action: Reviewed Cyanocobalamin (Vitamin B-12) (Vitamin B-12) 500 Mcg Tablet, 1,000 MCG PO DAILY, (Reported) Entered as Reported by: SENIA LUNA on 11/27/20 115 Last Action: Reviewed Donepezil HCl (Donepezil HCl) 10 Mg Tablet, 10 MG PO HS, (Reported) Entered as Reported by: SENIA LUNA on 09/06/21 120 Last Action: Reviewed Famotidine (Famotidine) 40 Mg Tablet, 40 MG PO DAILY, (Reported) Entered as Reported by: SENIA LUNA on 09/06/211207 Last Action: Reviewed Ferrous Sulfate (Ferrous Sulfate) 325 Mg (65 Mg Iron) Tablet, 325 MG PO DAILY, (Reported) Entered as Reported by: SENIA LUNA on 09/06/211207 Last Action: Reviewed Fluticasone Propionate (Flonase Allergy Relief) 50 Mcg/Actuation [place].susp, 2 SPRAY NSEACH DAILY PRN for CONGESTION, (Reported) Entered as Reported by: SENIA LUNA on 11/27/20 115 Last Action: Reviewed Discontinued Medications ALPRAZolam (ALPRAZolam) 0.25 Mg Tablet, 0.25 MG PO BID, (Reported) Discontinued Reason: No Longer Taking Entered as Reported by: SENIA LUNA on 09/06/211207 Amoxicillin/Potassium Clav (Augmentin 875-125 Tablet) 1 Each Tablet, 1 EACH PO BID Discontinued Reason: No Longer Taking Prescribed by: ZACH CALVIN on 09/07/21 1209 Atenolol (Atenolol) 25 Mg Tablet, 25 MG PO DAILY, (Reported) Discontinued Reason: No Longer Taking Entered as Reported by: SENIA LUNA on 09/06/21 1208 Cholecalciferol (Vitamin D3) (Vitamin D3) 25 Mcg Capsule, 50 MCG PO DAILY, (Reported) Discontinued Reason: No Longer Taking Entered as Reported by: SENIA LUNA on 09/06/21 1208 Ciprofloxacin HCl (Ciprofloxacin HCl) 250 Mg Tablet, 250 MG PO BID Discontinued Reason: No Longer Taking Prescribed by: GINNY CORTÉS on 06/26/23 1551 Ciprofloxacin HCl (Cipro) 250 Mg Tablet, 250 MG PO BID Discontinued Reason: No Longer Taking Prescribed by: LETITIA MARIE on 07/05/23 1622 Doxycycline Hyclate (Doxycycline Hyclate) 100 Mg Tablet, 100 MG PO BID Discontinued Reason: No Longer Taking Prescribed by: ULISES YODER on 07/15/23 0654 Magnesium Oxide (Magnesium Oxide) 420 Mg Tablet, 420 MG PO BID, (Reported) Discontinued Reason: No Longer Taking Entered as Reported by: ELLIS DIXON on 02/19/19 1347 Sertraline HCl (Sertraline HCl) 25 Mg Tablet, 25 MG PO DAILY, (Reported) Discontinued Reason: No Longer Taking Entered as Reported by: STEPHEN YAO on 08/21/21 0233 Sulfamethoxazole/Trimethoprim (Bactrim Ds Tablet) 1 Each Tablet, 1 EACH PO BID Discontinued Reason: No Longer Taking Prescribed by: LEONOR AUGUSTIN on 01/19/22 1216 Zinc (Zinc) 50 Mg Tablet, 50 MG PO DAILY, (Reported) Discontinued Reason: No Longer Taking Entered as Reported by: SENIA LUNA on 09/06/21 1209 Physical Exam-Cardiology Physical Exam Vital Signs/I&O 07/27/23 07/27/23 07/27/23 07/27/23 05:00 07:25 08:00 11:24 Temp 37.0 36.6 36.8 Pulse 77 74 77 Resp 20 18 18 B/P (MAP) 175/70 (105) 180/85 (116) 164/81 (108) Pulse Ox 94 96 97 O2 Delivery Room Air Room Air Room Air Room Air Capillary Refill : Less Than 3 Seconds Constitutional: well-developed, well-nourished, other (oriented to person and place but not time) HEENT: PERRL, EOMI, hard of hearing Neck: carotid pulses are 2 + bilaterally, with good upstrokes Respiratory: No accessory muscle use; chest expansion is symmetric, chest is bilaterally symmetric, other (fair to good, bilat air entry) Cardiovascular: regular rate-rhythm, S1 and S2, systolic murmur (faint J CARLOS at card base) Gastrointestinal: No tender; soft; No guarding, No rebound; audible bowel sounds Extremities: No clubbing, No cyanosis, No significant edema Neurologic/Psychiatric: oriented x 3, other (moves all limbs equally) Skin: normal color, warm/dry; No cyanosis, No ulcerations, No rash on exposed areas, No ulcerations on exposed areas Data Review Labs Laboratory Tests 07/26/23 22:03: B-Type Natriuretic Peptide 273.8H 07/26/23 22:05: Urine Color REDH, Urine Clarity CLOUDY, Urine pH 6.0, Urine Specific Mcgrew 1.020, Urine Protein 3+H, Urine Glucose (UA) NEGATIVE, Urine Ketones NEGATIVE, Urine Nitrite NEGATIVE, Urine Bilirubin NEGATIVE, Urine Urobilinogen 0.2, Urine Leukocyte Esterase NEGATIVE, Urine RBC (Auto) 3+H, Urine RBC TNTCH, Urine WBC 5- 10H, Urine Squamous Epithelial Cells NONE, Urine Crystals NONE, Urine Bacteria TRACE, Urine Casts NONE, Urine Mucus NEGATIVE, Urine Culture Indicated YES 07/26/23 22:11: White Blood Count 14.7H, Red Blood Count 3.70L, Hemoglobin 11.0L, Hematocrit 32L , Mean Corpuscular Volume 88, Mean Corpuscular Hemoglobin 30, Mean Corpuscular Hemoglobin Concent 34, Red Cell Distribution Width 12.2, Platelet Count 219, Mean Platelet Volume 9.7, Immature Granulocyte % (Auto) 0, Neutrophils (%) (Auto) 72, Lymphocytes (%) (Auto) 11L, Monocytes (%) (Auto) 12, Eosinophils (%) (Auto) 4, Basophils (%) (Auto) 1, Neutrophils # (Auto) 10.5H, Lymphocytes # (Auto) 1.6, Monocytes # (Auto) 1.8H, Eosinophils # (Auto) 0.7H, Basophils # (Auto) 0.1, Immature Granulocyte # (Auto) 0.1, Sodium Level 135, Potassium Level 3.3L, Chloride Level 102, Carbon Dioxide Level 18L, Anion Gap 15H, Blood Urea Nitrogen 18, Creatinine 1.41H, Estimat Glomerular Filtration Rate 52, BUN/Creatinine Ratio 13, Glucose Level 116H, Lactic Acid Level 0.94, Calcium Level 8.5, Corrected Calcium 8.7, Magnesium Level 1.7, Total Bilirubin 0.3, Aspartate Amino Transf (AST/SGOT) 25, Alanine Aminotransferase (ALT/SGPT) 27, Alkaline Phosphatase 77, Troponin I 0.043H, C-Reactive Protein High Sensitivity 2.43H, Total Protein 6.9, Albumin 3.7 07/27/23 05:55: White Blood Count 16.3H, Red Blood Count 3.73L, Hemoglobin 11.0L, Hematocrit 33L , Mean Corpuscular Volume 88, Mean Corpuscular Hemoglobin 30, Mean Corpuscular Hemoglobin Concent 34, Red Cell Distribution Width 12.2, Platelet Count 218, Mean Platelet Volume 9.5, Immature Granulocyte % (Auto) 0, Neutrophils (%) (Auto) 75, Lymphocytes (%) (Auto) 9L, Monocytes (%) (Auto) 12, Eosinophils (%) (Auto) 3, Basophils (%) (Auto) 1, Neutrophils # (Auto) 12.3H, Lymphocytes # (Auto) 1.5, Monocytes # (Auto) 1.9H, Eosinophils # (Auto) 0.5H, Basophils # (Auto) 0.1, Immature Granulocyte # (Auto) 0.1, Sodium Level 137, Potassium Level 3.4L, Chloride Level 102, Carbon Dioxide Level 22, Anion Gap 13, Blood Urea Nitrogen 15, Creatinine 1.28, Estimat Glomerular Filtration Rate 58, BUN/Creatinine Ratio 12, Glucose Level 102, Calcium Level 8.5, Troponin I 0.158H , Neutrophils % (Manual) 77, Lymphocytes % (Manual) 9, Monocytes % (Manual) 10, Eosinophils % (Manual) 4, Blood Morphology Comment NORMAL Microbiology 07/26/23 Urine Culture - Preliminary, Resulted A/P-Cardiology Assessment/Admission Diagnosis Mildly elevated troponin: type 2 AK due to uncontrolled hypertension - Echo on 07-27-23: LVEF 60-65%, trivial AI, PASP 30-35 mmHg - No evidence of ischemia on ECG Severe hypertension Leucocytosis suggesting systemic infection - managed by the Hospitalist service Recurrent UTIs - patient has suprapubic cath due to neurogenic bladder and problems with urethra and prostate (according to his records, pt unable to elaborate) - managed by the Hospitalist service Dementia - this hospitalization with mental status change / delirium H/o hyperlipidemia Discussion and Recomendations * Treat hypertension * Monitor labs * Discussed this morning with DAVID Colon MD FACP FAC CCDS Jul 27, 2023 14:50
[2023-07-27] MEDS: DONEPEZIL 10 MG TABLET PO SCH (19:13)
[2023-07-28 05:00] VITALS: BP 169/80
[2023-07-28] MEDS: CATHETER FLUSH 10 ML SYR IVP SCH ×3 (05:22→20:21)
[2023-07-28 05:59] LABS: BASOPHILS # (AUTO) 0.1 10^3/uL (0.0-0.1); BASOPHILS % (AUTO) 1 % (0-10); EOSINOPHILS # (AUTO) 0.9 10^3/uL (0.0-0.3); EOSINOPHILS % (AUTO) 6 % (0-10); HEMATOCRIT 33 % (40-54); HEMOGLOBIN 11.2 g/dL (13.3-17.7); LYMPHOCYTES # (AUTO) 1.6 10^3/uL (1.0-4.0); LYMPHOCYTES % (AUTO) 12 % (12-44); MEAN CORPUSCULAR HEMOGLOBIN 30 pg (25-34); MEAN CORPUSCULAR HGB CONC 34 g/dL (32-36); MEAN CORPUSCULAR VOLUME 86 fL (80-99); MEAN PLATELET VOLUME 9.8 fL (9.0-12.2); MONOCYTES # (AUTO) 1.4 10^3/uL (0.0-1.0); MONOCYTES % (AUTO) 11 % (0-12); NEUTROPHILS # (AUTO) 9.5 10^3/uL (1.8-7.8); NEUTROPHILS % (AUTO) 70 % (42-75); PLATELET COUNT 241 10^3/uL (130-400); WHITE BLOOD COUNT 13.6 10^3/uL (4.3-11.0)
[2023-07-28 06:32] LABS: EOSINOPHILS % (MANUAL) 8 %; LYMPHOCYTES % (MANUAL) 9 %; MONOCYTES % (MANUAL) 10 %; NEUTROPHILS % (MANUAL) 73 %; RBC MORPH NORMAL
[2023-07-28] MEDS ORDERED: POTASSIUM CHLORIDE 10 MEQ TABLET PO SCH (07:00)
[2023-07-28 07:20] VITALS: BP 168/72
[2023-07-28] MEDS: LOSARTAN 50 MG TABLET PO SCH (08:02)
[2023-07-28] MEDS: ASPIRIN 325 MG TABLET PO SCH (08:02)
[2023-07-28] MEDS: CEFDINIR 300 MG CAPSULE PO SCH ×2 (08:02→20:19)
[2023-07-28] MEDS: POTASSIUM CHLORIDE 10 MEQ TABLET PO SCH (08:02)
--- NOTE | 2023-07-28 08:46 | Diagnostic Imaging Report ---
INDICATION: Abnormal chest x-ray revealing interstitial infiltrate. COMPARISON: 07/26/2023. FINDINGS: PA and lateral views of the chest reveal normal sized heart and pulmonary vascularity. There is no evidence of pneumothorax, consolidation, or significant pleural fluid. There has been near complete resolution of the interstitial disease seen on the previous study. IMPRESSION: Improved aeration of the lungs without evidence of acute abnormality or adverse change. Dictated by: Dictated on workstation # [id number]
[2023-07-28] MEDS ORDERED: FUROSEMIDE INJECTION 40 MG/4 ML VIAL IVP SCH (09:00)
[2023-07-28 11:04] VITALS: BP 130/60
--- NOTE | 2023-07-28 12:30 | Progress Note - Cardiology ---
Cardiology SOAP Progress Note Subjective: No c/o CP or SOB Objective: I&O/Vital Signs 07/28/23 07/29/23 07/29/23 07/29/23 23:39 03:16 07:21 08:21 Temp 36.7 36.8 36.5 Pulse 67 72 72 Resp 20 20 17 B/P (MAP) 186/80 (115) 183/76 (111) 129/61 (83) Pulse Ox 93 93 93 O2 Delivery Room Air Room Air Room Air Room Air 07/29/23 00:00 Intake Total 1460 ml Output Total 900 ml Balance 560 ml Weight (Pounds): 155 Weight (Ounces): 0.0 Weight (Calculated Kilograms): 70.822016 Constitutional: well-developed, well-nourished, other (oriented to person and place but not time) Respiratory: No accessory muscle use; chest expansion is symmetric, chest is bilaterally symmetric, other (fair to good, bilat air entry) Cardiovascular: regular rate-rhythm, S1 and S2, systolic murmur (faint J CARLOS at card base) Gastrointestional: No tender; soft; No guarding, No rebound; audible bowel sounds Extremities: No clubbing, No cyanosis, No significant edema Neurologic/Psychiatric: oriented x 3, other (moves all limbs equally) Skin: normal color, warm/dry; No cyanosis, No ulcerations, No rash on exposed areas, No ulcerations on exposed areas Results/Procedures: Labs Laboratory Tests 07/29/23 08:43: White Blood Count 13.7H, Red Blood Count 4.07L, Hemoglobin 11.9L, Hematocrit 35L , Mean Corpuscular Volume 87, Mean Corpuscular Hemoglobin 29, Mean Corpuscular Hemoglobin Concent 34, Red Cell Distribution Width 12.3, Platelet Count 289, Mean Platelet Volume 9.8, Immature Granulocyte % (Auto) 0, Neutrophils (%) (Au to) 76H, Lymphocytes (%) (Auto) 9L, Monocytes (%) (Auto) 8, Eosinophils (%) (Auto) 6, Basophils (%) (Auto) 1, Neutrophils # (Auto) 10.4H, Lymphocytes # (Auto) 1.3, Monocytes # (Auto) 1.1H, Eosinophils # (Auto) 0.8H, Basophils # (Auto) 0.1, Immature Granulocyte # (Auto) 0.1, Sodium Level 135, Potassium Level 3.4L, Chloride Level 101, Carbon Dioxide Level 22, Anion Gap 12, Blood Urea Nitrogen 18, Creatinine 1.38H, Estimat Glomerular Filtration Rate 53, BUN/Creatinine Ratio 13, Glucose Level 143H, Calcium Level 8.6 Microbiology 07/26/23 Blood Culture - Preliminary, Resulted 07/26/23 Urine Culture - Final, Complete NO GROWTH A/P: Assessment: Mildly elevated troponin: type 2 [place] due to uncontrolled hypertension - Echo on 07-27-23: LVEF 60-65%, trivial AI, PASP 30-35 mmHg - No evidence of ischemia on ECG Severe hypertension Leucocytosis suggesting systemic infection - managed by the Hospitalist service Recurrent UTIs - patient has suprapubic cath due to neurogenic bladder and problems with urethra and prostate (according to his records, pt unable to elaborate) - managed by the Hospitalist service Dementia - this hospitalization with mental status change / delirium H/o hyperlipidemia Plan: * Continue current anti-hypertensive regimen * Monitor labs LENI BAL Jul 28, 2023 12:30
[2023-07-28] MEDS ORDERED: CEFD300C3 PO (13:32)
[2023-07-28] MEDS ORDERED: busPIRone 5 MG TABLET PO PRN (14:15)
--- NOTE | 2023-07-28 14:31 | Occupational Therapy Eval ---
OT Evaluation-General/PLF Medical Diagnosis Admission Date Jul 27, 2023 at 01:15 Medical Diagnosis: delerium/NSTEMI Onset Date: Jul 27, 2023 Therapy Diagnosis Therapy Diagnosis: unsteady gait, LOB, confusion, visual impairment Height/Weight Height (Feet): 5 Height (Inches): 8.00 Weight (Pounds): 155 Weight (Ounces): 0.0 Precautions Precautions/Isolations: Fall Prevention, Standard Precautions Safety Interventions: Bed Exit Alarm Weight Bear Status Weight Bearing Restriction: Weight Bearing/Tolerated Referral Referral Reason: Self Care, Evaluation/Treatment Medical History Pertinent Medical History: HTN Reviewed History: Yes Social History Home: Apartment Current Living Status: Alone Entry Into Home: Level Entry [place] ADL-Prior Level of Function SCALE: Activities may be completed with or without assistive devices. 8-Fwwnwahnjo-ephoctd completes the activity by him/herself with no assistance from a helper. 5-Set-up or Clean-up Assistance-helper sets up or cleans up; patient completes activity. Hardy assists only prior to or following the activity. 4-Supervision or Touching Assistance-helper provides verbal cues and/or touching/steadying and/or contact guard assistance as patient completes activity. Assistance may be provided throughout the activity or intermittently. 3-Partial/Moderate Assistance-helper does LESS THAN HALF the effort. Hardy lifts, holds or supports trunk or limbs, but provides less than half the effort. 2-Substantial/Maximal Assistance-helper does MORE THAN HALF the effort. Hardy lifts or holds trunk or limbs and provides more than half the effort. 3-Yvfzjsyci-zlehva does ALL the effort. Patient does none of the effort to complete the activity. Or, the assistance of 2 or more helpers is required for the patient to complete the activity. If activity was not attempted, code reason: 7-Patient Refused. 9-Not Applicable-not attempted and the patient did not perform the activity before the current illness, exacerbation or injury. 10-Not Attempted due to Environmental Limitations-(lack of equipment, weather restraints, etc.). 88-Not Attempted due to Medical Conditions or Safety Concerns. ADL PLOF Comments At home patient performs ADLS in a ADA modified apartment setting, he reports that he has difficulty some days caring for himself. He uses a cane at home. He sometimes walks and does drive to [facility] across the street Self Care: Independent Functional Cognition: Needed Some Help (gillian was here at [facility] last week and sent home. He is increasingly confused) DME/Equipment: Grab Bars, Shower Drive Self: Yes OT Current Status Subjective Patient is hallucinating about "TOOTH PEOPLE" being in his room, he reports double vision in the right eye by asking which therapist to follow while only one therapist is standing and direction, left peripheral vision neglect. Mental Status/Objective Patient Orientation: Person, Confused, Place, Time Confused of where his boots area and that he must has lost them on the way here, then recalls ambulance arrival. Clothing is soiled and saturated from B/B incontinence No other clothing is present. Patient reports he is walking home to take care of his cat. Patient also asks OT to go home with him and help him. Patient intermittently cannot follow simple one step commands during evaluation. Patient says he has good days and bad days and today is not a good one Attachments: Aviles Catheter Current Glasses/Contacts: Yes Hand Dominance: Right Upper Extremity ROM BUE ROM WFLS Upper Extremity Coordination impaired Fair/Fair + Upper Extremity Sensation impaired left side of body Upper Extremity Strength -4/5 ADL-Treatment Eating (QC): 5 (spills a signifigant amount of food, is unable to see food he dropped, impaired depth perception. unable to locate specific named object on plate resembling pills) Oral Hygiene (QC): 4 Shower/Bathe Self (QC): 7 (Needs however declined) Upper Body Dressing (QC): 4 Lower Body Dressing (QC): 2 (required assitance lifting LEs into pant legs and threading aviles, assistance to stand, and safety w/ use of ADS) On/Off Footwear (QC): 3 Toileting Hygiene (QC): 3 Patient has 5+ LOB and unable to cease backward staggering in hallway Education OT Patient Education: Correct positioning, Modified ADL techniques, Progress toward Goal/Update tx plan, Purpose of tx/functional activities, Reviewed precautions, Rehab process, Safety issues, Transfer techniques, Use of adapted equipment Teaching Recipient: Patient Teaching Methods: Demonstration, Discussion Response to Teaching: Reinforcement Needed (poor awareness of health needs and safety aspect) OT Meat Cutting Teacher Goals Meat Cutting Teacher Goals Eating (QC): 6 Oral Hygiene (QC): 6 Toileting Hygiene (QC): 5 Shower/Bathe Self (QC): 5 Upper Body Dressing (QC): 6 Lower Body Dressing (QC): 6 On/Off Footwear (QC): 6 1=Demonstrate adherence to instructed precautions during ADL tasks. 2=Patient will verbalize/demonstrate understanding of assistive devices/modifications for ADL. 3=Patient will improve strength/tolerance for activity to enable patient to perform ADL's. OT Education/Plan Problem List/Assessment Assessment: Decreased Activ Tolerance, Decreased Safety Aware, Impaired Cognition, Impaired Coordination, Impaired Funct Balance, Impaired I ADL's, Impaired Self-Care Skills Discharge Recommendations Plan/Recommendations: Continue POC Therapy Discharge Recommendati: Post Acute OT Treatment Plan/Plan of Care Treatment,Training & Education: Yes Patient would benefit from OT for education, treatment and training to promote independence in ADL's, mobility, safety and/or upper extremity function for AD L's. Plan of Care: ADL Retraining, Cognitive Retraining, Concurrent Therapy, Functional Mobility, Group Exercise/Act as Ind, UE Funct Exercise/Act, UE Neuromus Re-Ed/Coord Treatment Duration: Aug 08, 2023 Frequency: 3 times per week (3-5 times per week) Estimated Hrs Per Day: .25 hour per day Agreement: Yes Rehab Potential: Fair Time Start Time: 13:08 Stop Time: 13:37 DATE: Jul 28, 2023 Total Time Billed (hr/min): 29 Billed Treatment Time EVM, ADL 29 min CHEMA PEARL OT Jul 28, 2023 14:31
--- NOTE | 2023-07-28 14:34 | Physical Therapy Evaluation ---
PT Evaluation-General Medical Diagnosis Admission Date Jul 27, 2023 at 01:15 Medical Diagnosis: delerium/NSTEMI Onset Date: Jul 27, 2023 Therapy Diagnosis Therapy Diagnosis: impaired mobility/generalized weakness Height/Weight Height (Feet): 5 Height (Inches): 8.00 Weight (Pounds): 155 Weight (Ounces): 0.0 Precautions Precautions/Isolations: Standard Precautions Referral Physician: Xiang Reason for Referral: Evaluation/Treatment Medical History Pertinent Medical History: HTN Additional Medical History suprapubic catheter Current History EMS secondary to AMS and catheter issue Reviewed History: Yes Social History Home: Apartment Current Living Status: Alone caregivers 15 hours/wk Prior Prior Level of Function SCALE: Activities may be completed with or without assistive devices. 3-Nrshsygwot-lonfmdk completes the activity by him/herself with no assistance from a helper. 5-Set-up or Clean-up Assistance-helper sets up or cleans up; patient completes activity. [place] assists only prior to or following the activity. 4-Supervision or Touching Assistance-helper provides verbal cues and/or touching/steadying and/or contact guard assistance as patient completes activity. Assistance may be provided throughout the activity or intermittently. 3-Partial/Moderate Assistance-helper does LESS THAN HALF the effort. [place] lifts, holds or supports trunk or limbs, but provides less than half the effort. 2-Substantial/Maximal Assistance-helper does MORE THAN HALF the effort. [place] lifts or holds trunk or limbs and provides more than half the effort. 0-Isqoxwbhq-jfsgkd does ALL the effort. Patient does none of the effort to complete the activity. Or, the assistance of 2 or more helpers is required for the patient to complete the activity. If activity was not attempted, code reason: 7-Patient Refused. 9-Not Applicable-not attempted and the patient did not perform the activity before the current illness, exacerbation or injury. 10-Not Attempted due to Environmental Limitations-(lack of equipment, weather restraints, etc.). 88-Not Attempted due to Medical Conditions or Safety Concerns. Bed Mobility: 6 Transfers (B,C,W/C): 6 Gait: 6 Indoor Mobility (Ambulation): Independent Prior Devices Use: Other-see list below Prior Device Use: cane PT Evaluation-Current Subjective Patient agrees to PT. Very confused and rambles when talking. Objective Patient Orientation: Person, Confused ROM/Strength ROM Lower Extremities bilateral LE WFL Strength Lower Extremities 3+/5 grossly bilateral LE all planes Integumentary/Posture Bowel Incontinence: Yes Posture WFL Neuromuscular (Tone, Coordination, Reflexes) diminished coordination and dynamic balance with multiple episodes LOB backward with PT correct Sensory Vision: Wears Glasses (reports he is seeing double) Hearing: Impaired Transfers Sit to Stand (QC): 4 (CGA with 2 episodes of backward LOB) Gait Mode of Locomotion: Walk Anticipated Mode of Locomotion: Walk Walk 10 feet (QC): 3 Walk 50 ft with 2 Turns(QC): 3 Walk 150 ft (QC): 3 Distance: 180' Gait Assistive Device: FWW Comments/Gait Description shuffle gait sequence/left neglect with running into the wall x 4 without correcting Balance Sitting Static: Normal Sitting Dynamic: Normal Standing Static: Fair Standing Dynamic: Poor Assessment/Needs Patient is currently unsafe with gross motor skills to return to home safely. Patient is unaware of safety concerns. Patient demonstrated inability to correct LOB requiring PT correct. Noted left neglect with gait with FWW use. Patient initially utilized a cane for ambulation, however, this PT deemed this not safe. Patient appears confused and unable to safely care for self independently. SW and physician notified. Rehab Potential: Guarded PT Longterm Goals [place] Tile Setter Goals PT Longterm Goals Time Frame: Aug 09, 2023 Roll Left & Right (QC): 6 Sit to Lying (QC): 6 Lying-Sitting on Side/Bed(QC): 6 Sit to Stand (QC): 6 Chair/Crn-zd-Deerk Xfer(QC): 6 Toilet Transfer (QC): 6 Walk 10 feet (QC): 5 Walk 50ft with 2 Turns (QC): 5 Walk 150 ft (QC): 5 PT Plan Problem List Problem List: Activity Tolerance, Functional Strength, Safety, Balance, Gait, Transfer, Bed Mobility Treatment/Plan Treatment Plan: Continue Plan of Care Treatment Plan: Bed Mobility, Education, Functional Activity Rachna, Functional Strength, Gait, Safety, Therapeutic Exercise, Transfers Treatment Duration: Aug 09, 2023 Frequency: 6 times per week Estimated Hrs Per Day: .25 hour per day Time Time In: 1308 Time Out: 1328 DATE: Jul 28, 2023 Total Billed Treatment Time: 20 Total Billed Treatment 1 visit [facility] 20 min RUBA CUTLER PT Jul 28, 2023 14:33
[2023-07-28 16:00] VITALS: BP 166/75
--- NOTE | 2023-07-28 16:49 | Progress Note - Hospitalist ---
Subjective HPI/CC On Admission Date Seen by Provider: Jul 28, 2023 Time Seen by Provider: 12:20 Mihir Hitchcock is a 77M who presented with infectious diarrhea, dehydration, a catheter-induced UTI, acute on chronic kidney disease, orthostatic hypotension, dementia, HTN, hyperlipidemia, and anxiety. He received IV fluids, Rocephin, Do nepezil, Atenolol, Atorvastatin, and Sertraline to manage his conditions. director construction services, PT, OT, and speech therapy were also consulted. He has now had a solid BM and is not experiencing orthostatic hypotension and will be discharged with a culture-sensitive oral antibiotic for his UTI.The patient was discharged yesterday morning but was brought back to the emergency room last night due to increased confusion. He was pulling at his suprapubic catheter. He has a history of dementia presumed Alzheimer's on donepezil but was living at home reportedly alone. He voiced no complaints this morning did not know why he was here. He denied chest pain shortness of breath abdominal pain or diarrhea. He was pleasant without evidence for agitation. He reported no cough and appeared to be in no acute distress. In review of his last hospital stay while he was diagnosed with a UTI he only had 5-10 white cells in individual with suprapubic catheter with UA culture report revealing no reported significant growth. He has no past history of coronary disease was noted to have mildly elevated tro ponin. This was obtained not to do to any cardiac complaints and an ECG was done that was normal. Subjective/Events-last exam He is irritable. He wants to go home. He has no other complaints. Focused Exam Lactate Level 07/26/23 22:11: Lactic Acid Level 0.94 Objective Exam Vital Signs Vital Signs Date Time Temp Pulse Resp B/P (MAP) Pulse Ox O2 Delivery O2 Flow Rate FiO2 07/28/23 16:00 36.5 69 18 166/75 (105) 97 Room Air Capillary Refill : Less Than 3 Seconds General Appearance: No Apparent Distress, Obese Respiratory: Lungs Clear, No Respiratory Distress Cardiovascular: Regular Rate, Rhythm, No Murmur Gastrointestinal: Normal Bowel Sounds, Soft Extremity: Normal Inspection, No Pedal Edema Neurologic/Psychiatric: Alert, Oriented x3 Results/Procedures Lab Laboratory Tests 07/28/23 05:47 Patient resulted labs reviewed. Assessment/Plan Assessment and Plan Assess & Plan/Chief Complaint Delirium Dementia Hearing difficulty Delirium resolved Continue Donepezil Elevated troponin Hypertension Troponin mildly elevated, thought to be due to hypertension Cardiology following Echo with normal EF, no wall motion abnormalities, mild pulmonary hyp ertension Weakness CT head negative on arrival PT/OT MRI brain ordered UTI Suprapubic catheter Continue Omnicef DVT prophylaxis: Lovenox Diagnosis/Problems Diagnosis/Problems (1) Delirium Status: Acute (2) Dementia Status: Chronic (3) Elevated troponin Status: Acute (4) HTN (hypertension) Status: Acute (5) Weakness Status: Acute (6) Obesity Status: Chronic (7) Suprapubic catheter Status: Chronic (8) UTI (urinary tract infection) Status: Acute Qualifiers: Urinary tract infection type: acute cystitis Hematuria presence: with hematuria Qualified Codes: N30.01 - Acute cystitis with hematuria ZACH CALVIN MD Jul 28, 2023 16:49
[2023-07-28] MEDS ORDERED: MELATONIN 3 MG TABLET PO PRN (17:00)
[2023-07-28] MEDS ORDERED: ANTACID SUSPENSION 30 ML UDC PO PRN (17:00)
[2023-07-28] MEDS ORDERED: ACETAMINOPHEN 325 MG TABLET PO PRN (17:00)
[2023-07-28] MEDS ORDERED: LACTULOSE SYRUP 10GM/15ML 30ML UDC PO PRN (17:00)
[2023-07-28] MEDS ORDERED: ONDANSETRON 4 MG ORAL DISSOLVE TABLET PO PRN (17:00)
[2023-07-28] MEDS ORDERED: CALCIUM CARBONATE 500 MG CHEW TABLET PO PRN (17:00)
[2023-07-28] MEDS ORDERED: ONDANSETRON INJECTION 4 MG/2 ML (SDV) IV PRN (17:00)
[2023-07-28] MEDS ORDERED: BISACODYL 10 MG SUPPOSITORY PR PRN (17:00)
[2023-07-28] MEDS ORDERED: MILK OF MAGNESIA 400 MG/5 ML 30 ML UDC PO PRN (17:00)
[2023-07-28] MEDS ORDERED: ENOXAPARIN 40 MG/0.4 ML SYRINGE SC SCH (17:30)
--- NOTE | 2023-07-28 18:19 | Progress Note - Cardiology ---
Cardiology SOAP Progress Note Subjective: Confused Not able to answer questions meaningfully Objective: I&O/Vital Signs 07/28/23 07/28/23 07/28/23 07/28/23 07:20 08:00 11:04 16:00 Temp 37.0 36.8 36.5 Pulse 72 63 69 Resp 17 17 18 B/P (MAP) 168/72 (104) 130/60 (83) 166/75 (105) Pulse Ox 94 95 97 O2 Delivery Room Air Room Air Room Air Room Air 07/28/23 00:00 Intake Total 1200 ml Output Total 2600 ml Balance -1400 ml Weight (Pounds): 155 Weight (Ounces): 0.0 Weight (Calculated Kilograms): 70.106294 Constitutional: No AAO x 3; well-developed, well-nourished, other Respiratory: No accessory muscle use; chest expansion is symmetric, chest is bilaterally symmetric, other (fair to good, bilat air entry) Cardiovascular: regular rate-rhythm, S1 and S2, systolic murmur (faint J CARLOS at card base) Gastrointestional: No tender; soft; No guarding, No rebound; audible bowel sounds Extremities: No clubbing, No cyanosis, No significant edema Neurologic/Psychiatric: oriented x 3, other (moves all limbs equally) Skin: normal color, warm/dry; No cyanosis, No ulcerations, No rash on exposed areas, No ulcerations on exposed areas Results/Procedures: Labs Laboratory Tests 07/28/23 05:47: White Blood Count 13.6H, Red Blood Count 3.80L, Hemoglobin 11.2L, Hematocrit 33L , Mean Corpuscular Volume 86, Mean Corpuscular Hemoglobin 30, Mean Corpuscular Hemoglobin Concent 34, Red Cell Distribution Width 12.1, Platelet Count 241, Mean Platelet Volume 9.8, Immature Granulocyte % (Auto) 1, Neutrophils (%) (Auto) 70, Lymphocytes (%) (Auto) 12, Monocytes (%) (Auto) 11, Eosinophils (%) (Auto) 6, Basophils (%) (Auto) 1, Neutrophils # (Auto) 9.5H, Lymphocytes # (Auto) 1.6, Monocytes # (Auto) 1.4H, Eosinophils # (Auto) 0.9H, Basophils # (Auto) 0.1, Immature Granulocyte # (Auto) 0.1, Neutrophils % (Manual) 73, Lymphocytes % (Manual) 9, Monocytes % (Manual) 10, Eosinophils % (Manual) 8, Blood Morphology Comment NORMAL Microbiology 07/26/23 Blood Culture - Preliminary, Resulted 07/26/23 Urine Culture - Final, Complete NO GROWTH A/P: Assessment: Mildly elevated troponin: type 2 SD due to uncontrolled hypertension - Echo on 07-27-23: LVEF 60-65%, trivial AI, PASP 30-35 mmHg - No evidence of ischemia on ECG Severe hypertension Leucocytosis suggesting systemic infection - managed by the Hospitalist service Recurrent UTIs - patient has suprapubic cath due to neurogenic bladder and problems with ure thra and prostate (according to his records, pt unable to elaborate) - managed by the Hospitalist service Dementia - this hospitalization with mental status change / delirium H/o hyperlipidemia Plan: * Continue current anti-hypertensive regimen * Monitor labs DAVID LARES MD FACP [facility] CCDS Jul 28, 2023 18:19
[2023-07-28 19:36] VITALS: BP 157/69
[2023-07-28] MEDS: SENNOSIDES 8.6 MG TABLET PO SCH (20:19)
[2023-07-28] MEDS: DONEPEZIL 10 MG TABLET PO SCH (20:19)
[2023-07-28] MEDS: DOCUSATE SODIUM 100 MG CAPSULE PO SCH (20:19)
[2023-07-28] MEDS ORDERED: DONEPEZIL 10 MG TABLET PO SCH (21:00)
[2023-07-28 23:39] VITALS: BP 186/80
[2023-07-28] MEDS: hydrALAZINE INJECTION 20 MG/ML VIAL IV PRN (23:47)
[2023-07-29 03:16] VITALS: BP 183/76
[2023-07-29] MEDS: hydrALAZINE INJECTION 20 MG/ML VIAL IV PRN (03:47)
[2023-07-29] MEDS: CATHETER FLUSH 10 ML SYR IVP SCH ×2 (03:50→13:42)
[2023-07-29 07:21] VITALS: BP 129/61
[2023-07-29] MEDS: POTASSIUM CHLORIDE 10 MEQ TABLET PO SCH (08:36)
[2023-07-29] MEDS: CEFDINIR 300 MG CAPSULE PO SCH (08:36)
[2023-07-29] MEDS: SENNOSIDES 8.6 MG TABLET PO SCH (08:36)
[2023-07-29] MEDS: DOCUSATE SODIUM 100 MG CAPSULE PO SCH (08:36)
[2023-07-29] MEDS: LOSARTAN 50 MG TABLET PO SCH (08:36)
[2023-07-29] MEDS: ASPIRIN 325 MG TABLET PO SCH (08:36)
[2023-07-29 08:50] LABS: BASOPHILS # (AUTO) 0.1 10^3/uL (0.0-0.1); BASOPHILS % (AUTO) 1 % (0-10); EOSINOPHILS # (AUTO) 0.8 10^3/uL (0.0-0.3); EOSINOPHILS % (AUTO) 6 % (0-10); HEMATOCRIT 35 % (40-54); HEMOGLOBIN 11.9 g/dL (13.3-17.7); LYMPHOCYTES # (AUTO) 1.3 10^3/uL (1.0-4.0); LYMPHOCYTES % (AUTO) 9 % (12-44); MEAN CORPUSCULAR HEMOGLOBIN 29 pg (25-34); MEAN CORPUSCULAR HGB CONC 34 g/dL (32-36); MEAN CORPUSCULAR VOLUME 87 fL (80-99); MEAN PLATELET VOLUME 9.8 fL (9.0-12.2); MONOCYTES # (AUTO) 1.1 10^3/uL (0.0-1.0); MONOCYTES % (AUTO) 8 % (0-12); NEUTROPHILS # (AUTO) 10.4 10^3/uL (1.8-7.8); NEUTROPHILS % (AUTO) 76 % (42-75); PLATELET COUNT 289 10^3/uL (130-400); WHITE BLOOD COUNT 13.7 10^3/uL (4.3-11.0)
[2023-07-29] MEDS ORDERED: buPROPion SR 150 MG TABLET PO SCH (09:00)
[2023-07-29 09:02] LABS: CALCIUM 8.6 MG/DL (8.5-10.1); CREATININE SERUM 1.38 MG/DL (0.60-1.30); POTASSIUM 3.4 MMOL/L (3.6-5.0)
--- NOTE | 2023-07-29 10:20 | Physical Therapy Daily Note ---
PT Daily Note-Current Subjective Patient more alert and oriented on this date. Pain Section J - Health Conditions 1. Rarely or not at all 2. Occasionally 3. Frequently 4. Almost constantly 8. Unable to answer Pain Effect on Sleep: 1 Pain Interference with Therapy: 1 Pain Interference w/Day-to-Day: 1 Transfers SCALE: Activities may be completed with or without assistive devices. 1-Rfpxnglbpd-cemmyqk completes the activity by him/herself with no assistance from a helper. 5-Set-up or Clean-up Assistance-helper sets up or cleans up; patient completes activity. [place] assists only prior to or following the activity. 4-Supervision or Touching Assistance-helper provides verbal cues and/or touching/steadying and/or contact guard assistance as patient completes activity. Assistance may be provided throughout the activity or intermittently. 3-Partial/Moderate Assistance-helper does LESS THAN HALF the effort. [place] lifts, holds or supports trunk or limbs, but provides less than half the effort. 2-Substantial/Maximal Assistance-helper does MORE THAN HALF the effort. [place] lifts or holds trunk or limbs and provides more than half the effort. 2-Uuhrciawx-xbmjoj does ALL the effort. Patient does none of the effort to complete the activity. Or, the assistance of 2 or more helpers is required for the patient to complete the activity. If activity was not attempted, code reason: 7-Patient Refused. 9-Not Applicable-not attempted and the patient did not perform the activity before the current illness, exacerbation or injury. 10-Not Attempted due to Environmental Limitations-(lack of equipment, weather restraints, etc.). 88-Not Attempted due to Medical Conditions or Safety Concerns. Sit to Stand (QC): 4 Chair/Aka-dc-Cfrob Xfer(QC): 4 Gait Training Distance: 500' Walk 10 feet (QC): 4 Walk 50 ft with 2 Turns(QC): 4 Walk 150 ft (QC): 4 Gait Assistive Device: FWW improved barrie and dynamic balance Assessment Patient much improved on this date with functional mobility and safety awareness. SW notified of improvement. PT Graffiti Cleaner Goals Halfway Goals PT Halfway Goals Time Frame: Aug 09, 2023 Roll Left & Right (QC): 6 Sit to Lying (QC): 6 Lying-Sitting on Side/Bed(QC): 6 Sit to Stand (QC): 6 Chair/Xdy-nl-Zgkfq Xfer(QC): 6 Toilet Transfer (QC): 6 Walk 10 feet (QC): 5 Walk 50ft with 2 Turns (QC): 5 Walk 150 ft (QC): 5 PT Plan Treatment/Plan Treatment Plan: Continue Plan of Care Treatment Plan: Bed Mobility, Education, Functional Activity Rachna, Functional Strength, Gait, Safety, Therapeutic Exercise, Transfers Treatment Duration: Aug 09, 2023 Frequency: 6 times per week Estimated Hrs Per Day: .25 hour per day Time Time In: 920 Time Out: 930 DATE: Jul 29, 2023 Total Billed Treatment Time: 10 Total Billed Treatment 1 visit [facility] 10 min RUBA CUTLER PT Jul 29, 2023 10:20
[2023-07-29] MEDS ORDERED: GADOTERATE 0.5 MMOL/ML (CLARISCAN) 20 ML VIAL IV ONE (10:30)
--- NOTE | 2023-07-29 10:33 | Occupational Ther Daily Note ---
OT Current Status-Daily Note Subjective more communicative and understandable today Mental Status/Objective Patient Orientation: Person, Place, Situation Attachments: Monk Catheter ADL-Treatment Wearing soiled garment, OT supplied fresh clean garments for after MRI Therapy Code Descriptions/Definitions Functional [place] Measure: 0=Not Assessed/NA 4=Minimal Assistance 1=Total Assistance 5=Supervision or Setup 2=Maximal Assistance 6=Modified [place] 3=Moderate Assistance 7=Complete IndependenceSCALE: Activities may be completed with or without assistive devices. 7-Iztaqszjlf-ditybwt completes the activity by him/herself with no assistance from a helper. 5-Set-up or Clean-up Assistance-helper sets up or cleans up; patient completes activity. [place] assists only prior to or following the activity. 4-Supervision or Touching Assistance-helper provides verbal cues and/or touching/steadying and/or contact guard assistance as patient completes activity. Assistance may be provided throughout the activity or intermittently. 3-Partial/Moderate Assistance-helper does LESS THAN HALF the effort. [place] lifts, holds or supports trunk or limbs, but provides less than half the effort. 2-Substantial/Maximal Assistance-helper does MORE THAN HALF the effort. [place] lifts or holds trunk or limbs and provides more than half the effort. 7-Vphxzlsea-warzxe does ALL the effort. Patient does none of the effort to complete the activity. Or, the assistance of 2 or more helpers is required for the patient to complete the activity. If activity was not attempted, code reason: 7-Patient Refused. 9-Not Applicable-not attempted and the patient did not perform the activity before the current illness, exacerbation or injury. 10-Not Attempted due to Environmental Limitations-(lack of equipment, weather restraints, etc.). 88-Not Attempted due to Medical Conditions or Safety Concerns. Eating (QC): 6 Oral Hygiene (QC): 5 Shower/Bathe Self (QC): 3 Upper Body Dressing (QC): 4 Lower Body Dressing (QC): 4 On/Off Footwear: 4 Toileting Hygiene (QC): 4 Toilet Transfer (QC): 4 Education OT Patient Education: Correct positioning, Modified ADL techniques, Progress toward Goal/Update tx plan, Purpose of tx/functional activities, Reviewed precautions, Rehab process, Safety issues, Transfer techniques, Use of adapted equipment Teaching Recipient: Patient Teaching Methods: Demonstration Response to Teaching: Verbalize Understanding, Reinforcement Needed OT Senior Living Goals Operator Electronic Warfare Goals Eating (QC): 6 Oral Hygiene (QC): 6 Toileting Hygiene (QC): 5 Shower/Bathe Self (QC): 5 Upper Body Dressing (QC): 6 Lower Body Dressing (QC): 6 On/Off Footwear (QC): 6 1=Demonstrate adherence to instructed precautions during ADL tasks. 2=Patient will verbalize/demonstrate understanding of assistive devices/modifications for ADL. 3=Patient will improve strength/tolerance for activity to enable patient to per form ADL's. OT Education/Plan Problem List/Assessment Assessment: Decreased Activ Tolerance, Decreased Safety Aware, Decreased UE Strength, Impaired Cognition, Impaired Coordination, Impaired Funct Balance, Imp aired Self-Care Skills Discharge Recommendations Plan/Recommendations: Continue POC Treatment Plan/Plan of Care Treatment,Training & Education: Yes Patient would benefit from OT for education, treatment and training to promote independence in ADL's, mobility, safety and/or upper extremity function for ADL's. Plan of Care: ADL Retraining, Cognitive Retraining, Concurrent Therapy, Functional Mobility, Group Exercise/Act as Ind, UE Funct Exercise/Act, UE Neuromus Re-Ed/Coord Treatment Duration: Aug 08, 2023 Frequency: 3 times per week (3-5 times per week) Estimated Hrs Per Day: .25 hour per day Agreement: Yes Rehab Potential: Fair Time Start Time: 09:20 Stop Time: 09:32 DATE: Jul 29, 2023 Total Time Billed (hr/min): 12 Billed Treatment Time ADL 12 min CHEMA PEARL OT Jul 29, 2023 10:33
[2023-07-29 11:21] VITALS: BP 131/63
--- NOTE | 2023-07-29 11:26 | Progress Note - Cardiology ---
Cardiology SOAP Progress Note Objective: I&O/Vital Signs 07/28/23 07/29/23 07/29/23 07/29/23 23:39 03:16 07:21 08:21 Temp 36.7 36.8 36.5 Pulse 67 72 72 Resp 20 20 17 B/P (MAP) 186/80 (115) 183/76 (111) 129/61 (83) Pulse Ox 93 93 93 O2 Delivery Room Air Room Air Room Air Room Air 07/29/23 11:21 Temp 36.6 Pulse 75 Resp 17 B/P (MAP) 131/63 (85) Pulse Ox 92 O2 Delivery Room Air 07/29/23 00:00 Intake Total 1460 ml Output Total 900 ml Balance 560 ml Weight (Pounds): 155 Weight (Ounces): 0.0 Weight (Calculated Kilograms): 70.645050 Constitutional: No AAO x 3; well-developed, well-nourished, other Respiratory: No accessory muscle use; chest expansion is symmetric, chest is bilaterally symmetric, other (fair to good, bilat air entry) Cardiovascular: regular rate-rhythm, S1 and S2, systolic murmur (faint J CARLOS at card base) Gastrointestional: No tender; soft; No guarding, No rebound; audible bowel sounds Extremities: No clubbing, No cyanosis, No significant edema Neurologic/Psychiatric: oriented x 3, other (moves all limbs equally) Skin: normal color, warm/dry; No cyanosis, No ulcerations, No rash on exposed areas, No ulcerations on exposed areas Results/Procedures: Labs Laboratory Tests 07/29/23 08:43: White Blood Count 13.7H, Red Blood Count 4.07L, Hemoglobin 11.9L, Hematocrit 35L , Mean Corpuscular Volume 87, Mean Corpuscular Hemoglobin 29, Mean Corpuscular Hemoglobin Concent 34, Red Cell Distribution Width 12.3, Platelet Count 289, Mean Platelet Volume 9.8, Immature Granulocyte % (Auto) 0, Neutrophils (%) (Auto) 76H, Lymphocytes (%) (Auto) 9L, Monocytes (%) (Auto) 8, Eosinophils (%) (Auto) 6, Basophils (%) (Auto) 1, Neutrophils # (Auto) 10.4H, Lymphocytes # (Auto) 1.3, Monocytes # (Auto) 1.1H, Eosinophils # (Auto) 0.8H, Basophils # (Auto) 0.1, Immature Granulocyte # (Auto) 0.1, Sodium Level 135, Potassium Level 3.4L, Chloride Level 101, Carbon Dioxide Level 22, Anion Gap 12, Blood Urea Nitrogen 18, Creatinine 1.38H, Estimat Glomerular Filtration Rate 53, BUN/Creatinine Ratio 13, Glucose Level 143H, Calcium Level 8.6 Microbiology 07/26/23 Blood Culture - Preliminary, Resulted 07/26/23 Urine Culture - Final, Complete NO GROWTH Laboratory Tests 07/28/23 05:47 07/29/23 08:43 A/P: Assessment: Mildly elevated troponin: type 2 FL due to uncontrolled hypertension - Echo on 07-27-23: LVEF 60-65%, trivial AI, PASP 30-35 mmHg - No evidence of ischemia on ECG Severe hypertension - controlled Leucocytosis suggesting systemic infection - managed by the Hospitalist service Recurrent UTIs - patient has suprapubic cath due to neurogenic bladder and problems with urethra and prostate (according to his records, pt unable to elaborate) - managed by the Hospitalist service Dementia - this hospitalization with mental status change / delirium H/o hyperlipidemia Plan: * Continue current anti-hypertensive regimen * Replace electrolytes * Monitor labs LENI BAL Jul 29, 2023 11:26
[2023-07-29] MEDS ORDERED: LOSA50TA63 PO (12:05)
[2023-07-29] MEDS ORDERED: ASPI-999 PO (12:05)
[2023-07-29] MEDS ORDERED: METO50TA7 PO (12:05)
--- NOTE | 2023-07-29 12:10 | D/C HH Face to Face Order ---
D/C Face to Face Orders Instructions for Patient Via [facility], Patient Instructions/FollowUp: see instructions Physician to follow Patient: G[place] Discharge Diet for Home: Low Sodium Diet Patient Data-Allergies,Ht & Wt Patient Allergies: Coded Allergies: Penicillins (Verified Allergy, Unknown, FROM CHILDHOOD; PT TOLERATED CEF TRIAXONE, 07/25/23) Reacted as a child per uncoded allergy Height (Feet): 5 Height (Inches): 8.00 Weight (Pounds): 155 Weight (Ounces): 0.0 Home Health Need/Face to Face Date of Face to Face: Jul 29, 2023 Clinical Findings: Generalized weakness and fatigue, Instability, Muscle weakness, Unsteady gait I have seen Pt aihq-bi-tzmy: Yes Discharged To: Home Diagnosis/Conditions: Hypertension Suprapubic catheter UTI Dementia Debility Problems/Diagnosis/Condition: (1) HTN (hypertension) (2) Suprapubic catheter (3) UTI (urinary tract infection) (4) Dementia (5) Weakness Patient is Homebound due to: Marco fall risk due to instabilty, Muscle weakness Homebound Status Due to the above stated illness, injury or surgical procedure (medical condition or diagnosis) and associated clinical findings, the patient is homebound because of his/her inability to leave home except with aid of a supportive device and/or person AND leaving the home requires a considerable and taxing effort or is medically contraindicated. Pt req the following assistanc: Aid of another person, Cane Home Health Nursing Orders Home Health Services Order: Nursing Services, Mirror Silverer-Evaluate & Treat, Physical Therapy-Evaluate & Treat Home Health Infusion Therapy Line Start Date: Jul 26, 2023 Therapy Orders Therapy Orders: OT (must have SN or PT order), Physical Therapy Therapy Specific Orders: Eval assistive deivces, Teach enviro modifications/safety, Gait training, Increase strength/endurance Certify Stmt I certify that this patient is under my care and that I, a nurse practitioner or a physician; a assistant golf professional working with me, had a face to face encounter that - meets the physician face to face encounter requirements with this patient as dated. ZACH CALVIN MD Jul 29, 2023 12:10
[2023-07-29 15:55] VITALS: BP 144/78
[2023-07-29 16:26] VITALS: BP 144/78
--- NOTE | 2023-07-29 16:27 | Diagnostic Imaging Report ---
PROCEDURE: MR imaging of the brain with and without contrast. TECHNIQUE: Multiplanar, multisequence MR imaging of the brain was performed with and without contrast. DATE: July 29, 2023. COMPARISON: CT head July 26, 2023. HISTORY: 77-year-old male, weakness. Concern for stroke. FINDINGS: There is no restricted diffusion. There are no areas of abnormal intracranial susceptibility. There is proportional prominence of the ventricles and additional CSF spaces, consistent with moderate to severe cerebral volume loss. There is no abnormal extra axial fluid collection. There is no acute intracranial hemorrhage. There is no mass effect or midline shift. There are foci of T2 and FLAIR hyperintense signal in the periventricular and subcortical white matter which are without diffusion restriction or contrast enhancement. These are nonspecific but most likely reflect mild findings of chronic small vessel ischemic disease. There is no identified area of abnormal intracranial enhancement. There is nonspecific partial opacification in the right and left mastoid air cells. IMPRESSION: 1. No evidence of an acute infarct or other acute intracranial abnormality. 2. Moderate to severe cerebral volume loss with mild findings of chronic small vessel ischemic disease. Dictated by: Dictated on workstation # [id number]
--- NOTE | 2023-07-29 19:37 | Discharge Summary ---
Discharge Summary Hospital Course Problems/Dx: (1) Delirium Status: Acute (2) Dementia Status: Chronic (3) Elevated troponin Status: Acute (4) HTN (hypertension) Status: Acute (5) Weakness Status: Acute (6) Obesity Status: Chronic (7) Suprapubic catheter Status: Chronic (8) UTI (urinary tract infection) Status: Acute Qualifiers: Qualified Codes: N30.01 - Acute cystitis with hematuria Hospital Course Date of Admission: Jul 27, 2023 at 01:15 Admission Diagnosis : Suprapubic catheter dysfunction, UTI, HTN, elevated troponin Family Physician/Provider: Ben Earl DO Date of Discharge: 07/29/23 Discharge Diagnosis: Suprapubic catheter dysfunction, UTI, HTN, elevated troponin Hospital Course: Mihir Hitchcock is a 77 year old male who presented with suprapubic catheter dysfunction. He had his catheter replaced in the ER. He was also found to be hyp ertensive. He had an elevated troponin. Cardiology was consulted and assisted with his care. This was thought to be due to his hypertension. He was treated with conservative medical management. He was continued on antibiotics he had already been taking as an outpatient. He had some issues with delirium and weakness. An MRI showed no acute abnormalities. His delirium resolved and was likely related to hearing difficulty. His weakness improved with therapy. He was set up with home health care. He was discharged home in stable condition. He should follow up with Dr. Earl in about a week. Labs and Pending Lab Test: Laboratory Tests 07/29/23 08:43: White Blood Count 13.7H, Red Blood Count 4.07L, Hemoglobin 11.9L, Hematocrit 35L , Mean Corpuscular Volume 87, Mean Corpuscular Hemoglobin 29, Mean Corpuscular Hemoglobin Concent 34, Red Cell Distribution Width 12.3, Platelet Count 289, Mean Platelet Volume 9.8, Immature Granulocyte % (Auto) 0, Neutrophils (%) (Auto) 76H, Lymphocytes (%) (Auto) 9L, Monocytes (%) (Auto) 8, Eosinophils (%) (Auto) 6, Basophils (%) (Auto) 1, Neutrophils # (Auto) 10.4H, Lymphocytes # (Auto) 1.3, Monocytes # (Auto) 1.1H, Eosinophils # (Auto) 0.8H, Basophils # (A uto) 0.1, Immature Granulocyte # (Auto) 0.1, Sodium Level 135, Potassium Level 3.4L, Chloride Level 101, Carbon Dioxide Level 22, Anion Gap 12, Blood Urea Nitrogen 18, Creatinine 1.38H, Estimat Glomerular Filtration Rate 53, BUN/Creatinine Ratio 13, Glucose Level 143H, Calcium Level 8.6 Microbiology 07/26/23 Blood Culture - Preliminary, Resulted 07/26/23 Urine Culture - Final, Complete NO GROWTH Home Meds Active Aspirin 81 Mg Tab.chew 81 Mg PO DAILY 30 Days Losartan Potassium 50 Mg Tablet 50 Mg PO DAILY 30 Days Metoprolol Succinate 50 Mg Tab.er.24h 50 Mg PO DAILY 30 Days Reported Cefdinir 300 Mg Capsule 300 Mg PO BID FILLED 07/25/2023 #10 5 DAY SUPPLY Buspirone HCl 5 Mg Tablet 5 Mg PO TID PRN Cetirizine HCl 10 Mg Tablet 10 Mg PO DAILY Atorvastatin Calcium 80 Mg Tablet 40 Mg PO HS TAKES OF A 80MG TAB Bupropion Xl (Bupropion HCl) 150 Mg Tab.er.24h 150 Mg PO DAILY Ferrous Sulfate 325 Mg (65 Mg Iron) Tablet 325 Mg PO DAILY Donepezil HCl 10 Mg Tablet 10 Mg PO HS Famotidine 40 Mg Tablet 40 Mg PO DAILY Flonase Allergy Relief (Fluticasone Propionate) 50 Mcg/Actuation [place].susp 2 [place] NSEACH DAILY PRN Vitamin B-12 (Cyanocobalamin (Vitamin B-12)) 500 Mcg Tablet 1,000 Mcg PO DAILY TAKES 2 (500MCG) TABS Assessment/Pt Instructions see instructions Discharge Planning: >30 minutes discharge planning Discharge Instructions Discharge Diet: Low Sodium Diet Activity as Tolerated: Yes Consultations Cardiology Discharge Physical Examination Vital Signs Vital Signs Date Time Temp Pulse Resp B/P (MAP) Pulse Ox O2 Delivery O2 Flow Rate FiO2 07/29/23 16:26 36.6 88 20 144/78 95 Room Air General Appearance: No Apparent Distress, Obese Respiratory: Lungs Clear, No Respiratory Distress Cardiovascular: Regular Rate, Rhythm, No Murmur Gastrointestinal: Normal Bowel Sounds, Soft Extremity: Normal Inspection, No Pedal Edema Skin: Normal Color, Warm/Dry Neurologic/Psychiatric: Alert, Normal Mood/Affect Allergies: Coded Allergies: Penicillins (Verified Allergy, Unknown, FROM CHILDHOOD; PT TOLERATED CEFTRIAXONE, 07/25/23) Reacted as a child per uncoded allergy Copy Copies To 1: BEN EARL DO Discharge Summary Date of Admission Jul 27, 2023 at 01:15 Date of Discharge Jul 29, 2023 at 16:35 Discharge Date: Jul 29, 2023 Discharge Time: 16:35 Admission Diagnosis Suprapubic catheter dysfunction, UTI, HTN Consults/Procedures Consulations Cardiology Discharge Diagnosis Delirium Dementia Hearing difficulty Elevated troponin Hypertension Weakness UTI Suprapubic catheter (1) Delirium Status: Acute (2) Dementia Status: Chronic (3) Elevated troponin Status: Acute (4) HTN (hypertension) Status: Acute (5) Weakness Status: Acute (6) Obesity Status: Chronic (7) Suprapubic catheter Status: Chronic (8) UTI (urinary tract infection) Status: Acute Qualifiers: Qualified Codes: N30.01 - Acute cystitis with hematuria ZACH CALVIN MD Jul 29, 2023 19:35
== END 2023-07-29 16:35 | disposition home health service (06) | DRG 698 ==
LOC: EDUNIT# 21:47 → ER 21:49 → 4TH 07-27 01:15
PROVIDERS: ADMIT Internal Medicine; ATTEND Internal Medicine
DX: T83.518A Infection and inflammatory reaction due to other urinary catheter, initial encounter (principal); I21.A1 Myocardial infarction type 2; N39.0 Urinary tract infection, site not specified; N17.9 Acute kidney failure, unspecified; F05 Delirium due to known physiological condition; T83.038A Leakage of other urinary catheter, initial encounter; N31.9 Neuromuscular dysfunction of bladder, unspecified; N32.0 Bladder-neck obstruction; E86.0 Dehydration; I27.20 Pulmonary hypertension, unspecified; R53.1 Weakness; G30.9 Alzheimer's disease, unspecified; F02.80 Dementia in other diseases classified elsewhere, unspecified severity, without behavioral disturbance, psychotic disturbance, mood disturbance, and anxiety; F41.9 Anxiety disorder, unspecified; I12.9 Hypertensive chronic kidney disease with stage 1 through stage 4 chronic kidney disease, or unspecified chronic kidney disease; N18.9 Chronic kidney disease, unspecified; E78.00 Pure hypercholesterolemia, unspecified; F32.A Depression, unspecified; K21.9 Gastro-esophageal reflux disease without esophagitis; H53.2 Diplopia; H91.93 Unspecified hearing loss, bilateral; Z97.4 Presence of external hearing-aid; Z85.828 Personal history of other malignant neoplasm of skin; Z79.899 Other long term (current) drug therapy; Z88.0 Allergy status to penicillin
CPT/HCPCS: 36415; 51702; 70450; 70553; 71045; 71046; 80048; 80053; 81000; 83605; 83735; 83880; 84484; 85007; 85025; 85027; 86141; 87040; 87088; 93005; 93306